=== PATIENT | male | born 1980 | race African-American/Black ===

== ENCOUNTER 2017-05-19 19:04 | Inpatient (IN) | payer OTHER, MEDICAID ==
[~2017-05-19] VITALS: Ht 182.9 cm; Wt 160.1 kg
[2017-05-19 19:30] VITALS: BP 180/99; PULSE 82; RESP 22; TEMP 97.8; O2SAT 91
[2017-05-19] MEDS ORDERED: LABETALOL HCL 100 MG/20 ML VIAL IV PUSH PRN (19:30)
[2017-05-19] MEDS: hydrALAZINE HCL 20 MG/ML VIAL IV PUSH PRN (19:30)
[2017-05-19] MEDS ORDERED: SENNOSIDES 8.6 MG TAB PO PRN (19:30)
[2017-05-19] MEDS ORDERED: BISACODYL 10 MG SUPP RECTAL PRN (19:30)
[2017-05-19] MEDS ORDERED: HYDROmorphone HCL 2 MG TAB PO PRN (19:30)
[2017-05-19] MEDS ORDERED: MAGNESIUM HYDROXIDE SUSP 30 ML CUP PO PRN (19:30)
[2017-05-19] MEDS ORDERED: LACTULOSE SYRUP 20 GM/30 ML CUP PO PRN (19:30)
[2017-05-19] MEDS ORDERED: ONDANSETRON HCL 4 MG/2 ML VIAL ONE (19:32)
[2017-05-19] MEDS ORDERED: METOPROLOL TARTRATE 5 MG/5 ML VIAL ONE (19:38)
--- NOTE | 2017-05-19 19:40 | HHI.HP ---
History of Present Illness Chief Complaint: acute type B aortic dissection History of Present Illness 36 yo male with known HTN who had intense chest pain today during intercourse. Never happened before and although still present, has eased off significantly. 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 Transferred to [facility]. On presentation, in no distress and conversant. Neurologically intact. Past/Family/Social History Past Medical History HTN Past Surgical History inguinal hernia Social History 6 children lives in [place] Family History no aortic pathology Coded Allergies: No Known Allergies (Unverified , 05/19/17) Review of Systems Cardiovascular: COMPLAINS OF: Chest pain Gastrointestinal: DENIES: Abdominal pain Musculoskeletal: COMPLAINS OF: Back pain Physical Exam Neuro: alert, oriented, no distress, M[place]A HEENT: NC/AT; anicteric sclera Neck: no JVD Heart: reg rate Lungs: nonlabored breathing Abdomen: nontender to palpation Vascular: palpable femoral, pedal pulses Extremities: [place] with good strength pending CTA reviewed ([facility]) - type B aortic dissection with no evidence of rupture. Celiac occluded proximally but arterial phased reconstitution distally at hepatic artery. SMA true lumen narrowed from FL. B renal arteries fill. B iliac arteries fill Caprini VTE Risk Assessment Caprini VTE Risk Assessment: Mod/High Risk (score >= 2) Caprini Risk Assessment Model Point Value = 1 Point Value = 2 Point Value = 3 Point Value = 5 Age 41-60 Minor surgery BMI > 25 kg/m2 Swollen legs Varicose veins or History of unexplained or recurrent spontaneous Oral contraceptives or hormone replacement Sepsis (< 1 month) Serious lung disease, including pneumonia (< 1 month) Abnormal pulmonary function Acute myocardial infarction Congestive heart failure (< 1 month) History of inflammatory bowel disease Medical patient at bed rest Age 61-74 Arthroscopic surgery Major open surgery (> 45 min) Laparoscopic surgery (> 45 min) Malignancy Confined to bed (> 72 hours) Immobilizing plaster cast Central venous access Age >= 75 History of VTE Family history of VTE Factor V Leiden Prothrombin [id number] Lupus anticoagulant Anticardiolipin antibodies Elevated serum homocysteine Heparin-induced thrombocytopenia Other congenital or acquired thrombophilia Stroke (< 1 month) Elective arthroplasty Hip, pelvis, or leg fracture Acute spinal cord injury (< 1 month) Prophylaxis Regimen Total Risk Factor Score Risk Level Prophylaxis Regimen 0-1 Low Early ambulation 2 Moderate Order ONE of the following: *Sequential Compression Device (SCD) *Heparin 5000 units SQ BID 3-4 Higher Order ONE of the following medications: *Heparin 5000 units SQ TID *Enoxaparin/Lovenox 40 mg SQ daily (WT < 150 kg, CrCl > 30 mL/min) *Enoxaparin/Lovenox 30 mg SQ daily (WT < 150 kg, CrCl > 10-29 mL/min) *Enoxaparin/Lovenox 30 mg SQ BID (WT < 150 kg, CrCl > 30 mL/min) AND/OR *Sequential Compression Device (SCD) 5 or more Highest Order ONE of the following medications: *Heparin 5000 units SQ TID (Preferred with Epidurals) *Enoxaparin/Lovenox 40 mg SQ daily (WT < 150 kg, CrCl > 30 mL/min) *Enoxaparin/Lovenox 30 mg SQ daily (WT < 150 kg, CrCl > 10-29 mL/min) *Enoxaparin/Lovenox 30 mg SQ BID (WT < 150 kg, CrCl > 30 mL/min) AND *Sequential Compression Device (SCD) Assessment and Plan Plan acute TBAD without compromising features at present. Most worrisome radiographic features include overall size (42mm) and celiac occlusion proximally. However, chest pain resolving, neuro intact, no abdominal pain and iStat LA 1.3 1. Aggressive BP control - goal <110 2. Neurovascular checks 3. Serial abdominal exams and LFTs and LA 4. Repeat CTA Tuesday/Tuesday Seen and discussed with Dr. Zepeda. Lobo Guzman MD FACS [employer]I [employer] magistrate [facility] - Heart and Vascular Surgery at [facility] [phone] Lobo Guzman MD May 19, 2017 19:40
[2017-05-19] MEDS ORDERED: DILTIAZEM HCL 25 MG/5 ML VIAL ONE (19:45)
[2017-05-19 20:00] VITALS: BP 94/49; PULSE 74; PULSE 82; RESP 24; O2SAT 90
[2017-05-19] MEDS: HEPARIN SODIUM - SQ 10,000 UNITS/ML VIAL SQ SCH (20:00)
[2017-05-19] MEDS ORDERED: LACTATED RINGER'S 1000 ML INJ 1,000 ML IV SCH (20:00)
[2017-05-19 20:03] LABS: MEAN CELL VOLUME 78.7 FL (80.0-100.0); MEAN CORPUSCULAR HEMOGLOBIN 26.9 PG (27.0-34.0); MEAN CORPUSCULAR HGB CONC 34.1 % (32.0-36.0); MEAN PLATELET VOLUME 7.5 FL (7.0-11.0); PLATELET COUNT 219 TH/MM3 (150-450); RED BLOOD COUNT 4.83 MIL/MM3 (4.50-5.90); RED CELL DISTRIBUTION WIDTH 15.2 % (11.6-17.2); WHITE BLOOD COUNT 11.2 TH/MM3 (4.0-11.0)
[2017-05-19 20:19] VITALS: O2SAT 94
[2017-05-19 20:22] LABS: ALBUMIN 3.8 GM/DL (3.4-5.0); BICARBONATE 29.9 MEQ/L (21.0-32.0); CALCIUM 8.7 MG/DL (8.5-10.1); CREATININE 1.27 MG/DL (0.60-1.30); DIRECT BILIRUBIN ADULT 0.1 MG/DL (0.0-0.2); INDIRECT BILIRUBIN 0.4 MG/DL (0.0-0.8); TOTAL BILIRUBIN ADULT 0.5 MG/DL (0.2-1.0); TOTAL PROTEIN 7.5 GM/DL (6.4-8.2)
[2017-05-19] MEDS ORDERED: MAGNESIUM OXIDE 400 MG TAB PO PRN (20:30)
[2017-05-19] MEDS ORDERED: POTASSIUM CHLORIDE 25 MEQ EFFERVESCENT TAB PO PRN (20:30)
[2017-05-19] MEDS ORDERED: POTASSIUM PHOSPHATE INJ 30 MMOL in SODIUM CHLOR 0.9% 250 ML INJ 250 ML IV PRN (20:30)
[2017-05-19] MEDS ORDERED: POTASSIUM PHOSPHATE MONOBASIC 500 MG TAB PO/TUBE PRN (20:30)
[2017-05-19] MEDS ORDERED: SODIUM PHOSPHATE INJ 30 MMOL in SODIUM CHLOR 0.9% 250 ML INJ 240 ML IV PRN (20:30)
[2017-05-19] MEDS ORDERED: MISCELLANEOUS NURSING INFORMATION XX SCH (20:30)
[2017-05-19] MEDS ORDERED: POTASSIUM PHOSPHATE MONOBASIC 500 MG TAB PO PRN (20:30)
[2017-05-19] MEDS ORDERED: ESMOLOL DRIP INJ PREMIX 250 ML IV PRN (20:30)
[2017-05-19] MEDS ORDERED: CLEVIDIPINE INJ 50 ML IV PRN ×2 (20:30→21:00)
[2017-05-19] MEDS ORDERED: MAGNESIUM SULFATE INJ 4 GM in SODIUM CHLORIDE 0.9% INJ 92 ML IV PRN (20:30)
[2017-05-19] MEDS ORDERED: MAGNESIUM SULFATE INJ 2 GM in SODIUM CHLORIDE 0.9% INJ 96 ML IV PRN (20:30)
[2017-05-19] MEDS ORDERED: CHLORHEXIDINE GLUCONATE 2 % 1 PACK (2 CLOTHS) TOP PRN (20:30)
[2017-05-19] MEDS ORDERED: POTASSIUM CHLOR 40 MEQ PREMIX 100 ML IV PRN (20:30)
--- NOTE | 2017-05-19 20:30 | PD.CONS ---
[facility] Service Critical Care Medicine Consult Requested By Dr. Guzman Reason for Consult hemodynamic management Primary Care Physician Unknown History of Present Illness Is a 36-year-old male with a history of hypertension who is on vacation from the [place] area who did not take his antihypertensives today because he is on vacation, and was having sexual intercourse when he had sudden onset of severe substernal radiating to the back chest pain earlier today. 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 He was emergently transferred to [facility] for further management. I evaluated the patient on arrival to the ICU by EVAC. Patient denies abdominal pain. Still endorses chest pain although this is improving. Patient denies any other symptoms. CT chest abdomen pelvis was reviewed and reviewed with myself and Dr. Guzman and does demonstrate a type B dissection. 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 Initial laboratory evidence demonstrates a lactate of 1.3, creatinine 1.2, normal LFTs. Review of Systems Constitutional: DENIES: Diaphoretic episodes, Fatigue, Fever, Chills Eyes: DENIES: Blurred vision Respiratory: DENIES: Cough, Wheezing, Hemoptysis, Sputum production, Shortness of breath Cardiovascular: COMPLAINS OF: Chest pain, DENIES: Palpitations, Syncope, Dyspnea on Exertion, PND, Lower Extremity Edema, Orthopnea, Claudication Gastrointestinal: DENIES: Abdominal pain, Black stools, Bloody stools, Constipation, Diarrhea, Nausea, Vomiting Neurologic: DENIES: Headache Past Family Social History Allergies: Coded Allergies: No Known Allergies (Unverified , 05/19/17) Past Medical History HTN Obstructive sleep apnea for which he does not use a CPAP machine. Past Surgical History inguinal hernia Reported Medications Patient states he takes antihypertensives at home, but cannot remember his exact regimen. He does state that includes losartan and metoprolol. Active Ordered Medications See MAR Family History Reviewed with the patient. No family history of vascular disease, coronary disease, aortic disease. Social History Occasional EtOH. Denies tobacco or other drugs. Physical Exam Vital Signs Vital Signs Date Time Temp Pulse Resp B/P (MAP) Pulse Ox O2 Delivery O2 Flow Rate FiO2 05/19/17 20:19 94 Simple Mask 8.00 Physical Exam GENERAL: Young -Malagasy male, lying in bed, in distress due to chest pain HEENT: Normocephalic. Atraumatic. Pupils equal, round, reactive, conjugate. Mucous membranes are moist NECK: Trachea is midline. There is no JVD. CHEST: Nasal cannula oxygen. Equal chest rise. CARDIOVASCULAR: Normal rate in the 80s, regular rhythm. Sinus by telemetry. Hypertensive with blood pressure in the 180s on my evaluation. I remained at bedside actively treating this until his blood pressure is under 110. ABDOMEN: Soft, nontender, nondistended. No guarding. MUSCULOSKELETAL: Pulses 2+. No peripheral edema. Bilateral upper extremity radial pulses are equal. Bilateral lower extremity pulses are palpable. NEUROLOGICAL: RASS 0. GCS 15. Follows commands. No focal deficits. Laboratory Laboratory Tests Test 05/19/17 19:15 White Blood Count 11.2 Red Blood Count 4.83 Hemoglobin 13.0 Hematocrit 38.0 Mean Corpuscular Volume 78.7 Mean Corpuscular Hemoglobin 26.9 Mean Corpuscular Hemoglobin Concent 34.1 Red Cell Distribution Width 15.2 Platelet Count 219 Mean Platelet Volume 7.5 Blood Urea Nitrogen 14 Creatinine 1.27 Random Glucose 109 Total Protein 7.5 Albumin 3.8 Calcium Level 8.7 Alkaline Phosphatase 73 Aspartate Amino Transf (AST/SGOT) 27 Alanine Aminotransferase (ALT/SGPT) 18 Total Bilirubin 0.5 Direct Bilirubin 0.1 Sodium Level 141 Potassium Level 2.9 Chloride Level 100 Carbon Dioxide Level 29.9 Anion Gap 11 Estimat Glomerular Filtration Rate 78 Indirect Bilirubin 0.4 Result Diagram: 05/19/17191405/19/17 191 Imaging Last Impressions Chest X-Ray 05/19/17 0000 Signed Impressions: Service Date/Time: May 20:05 - CONCLUSION: Enlargement of the aortic arch suggesting aneurysm. Mild cardiomegaly. Mild increased interstitial markings consistent with possible central pulmonary vascular congestion. Lobo Ibarra MD Assessment and Plan Assessment and Plan Assessment: 36-year-old male with new acute type B dissection and hypertensive emergency. Patient remains critically on high risk for decompensation. Admit to ICU. Aggressive blood pressure management with goal systolic blood pressure less than 110 and heart rate less than 70. Serial lactate. Close monitoring of urine output. Active problems: Acute kidney injury Acute type B dissection Hypertensive emergency Plan: Admit to ICU Place arterial line Labetalol drip, esmolol drip, Clevidipine drip as needed Goal systolic blood pressure less than 110 Goal heart rate less than 70 As needed labetalol, hydralazine, metoprolol, diltiazem as needed to achieve goal hemodynamics Serial lactates Serial abdominal exam Frequent neurovascular checks Daily CMP, CBC Close monitoring of urine output. May need Ledesma. Clear liquid diet Maintenance IV fluids Vascular consult: Dr. Guzman SCDs Hold pharmacologic DVT prophylaxis given new acute dissection This patient remains critically ill with one or more organ systems which are or may become a threat to life. I have spent in excess of 81 minutes discontinuously in the care and management of this patient. This time is exclusive of procedures, and includes, but is not limited to, evaluation of the patient, review of the medical record, discussions with family, consultants, nursing staff, or respiratory therapy, and documentation in the medical record. Liang Zepeda MD May 19, 2017 20:30
--- NOTE | 2017-05-19 20:32 | RADRPT ---
EXAM DATE/TIME: 05/19/2017 20:05 [facility] COMPARISON: No previous studies available for comparison. INDICATIONS : Dissection. MEDICAL HISTORY : None. SURGICAL HISTORY : None. ENCOUNTER: Initial ACUITY: 1 day PAIN SCORE: Non-responsive. LOCATION: Bilateral chest FINDINGS: There is enlargement of the aortic arch suggesting aneurysm. The heart is prominent in size. Mild inc reased interstitial markings are noted consistent with possible mild central pulmonary vascular conge stion. CONCLUSION: Enlargement of the aortic arch suggesting aneurysm. Mild cardiomegaly. Mild increased interstitial ma rkings consistent with possible central pulmonary vascular congestion. Lobo Ibarra MD on May 19, 2017 at 20:30 Board Certified Radiologist. This report was verified electronically.
[2017-05-19 21:00] VITALS: BP 105/53; PULSE 71; RESP 20; O2SAT 92
[2017-05-19] MEDS: SODIUM CHLOR 0.9% 1000 ML INJ 1,000 ML IV SCH (21:00)
[2017-05-19] MEDS: DOCUSATE SODIUM 50 MG/SENNA 8.6 MG TAB PO SCH (21:00)
[2017-05-19] MEDS: FAMOTIDINE 20 MG/2 ML VIAL IV PUSH SCH (21:00)
[2017-05-19 21:15] LABS: INTERNATIONAL NORMALIZED RATIO 1.1 RATIO; PROTHROMBIN TIME - PATIENT 11.4 SEC (9.8-11.6)
[2017-05-19 22:00] VITALS: BP 93/51; PULSE 82; RESP 22; O2SAT 94
[2017-05-19] MEDS: ATORVASTATIN 40 MG TAB PO SCH (22:11)
[2017-05-19] MEDS: POTASSIUM CHLOR 20 MEQ PREMIX 100 ML IV PRN (22:11)
[2017-05-19] MEDS: FAMOTIDINE 20 MG TAB PO SCH (22:11)
[2017-05-19] MEDS: LABETALOL IV PRN ×2 (22:57)
[2017-05-19] MEDS: NS IV PRN ×2 (22:57)
[2017-05-19] MEDS: ESMOLOL DRIP INJ PREMIX 250 ML IV PRN (22:58)
[2017-05-19 23:00] VITALS: BP_SYST 78; BP_SYST 89; BP_DIAS 43; BP_DIAS 44; PULSE 81; RESP 20; TEMP 97.9; O2SAT 94
[2017-05-20] VITALS (20 sets, daily range): BP systolic 78–129; BP diastolic 48–75; PULSE 79–96; RESP 16–28; TEMP 97.8–98.4; O2SAT 40–99
[2017-05-20] MEDS ORDERED: LACTATED RINGER'S 1000 ML INJ 1,000 ML IV ONE ×2 (00:15→02:45)
[2017-05-20] MEDS: POTASSIUM CHLOR 20 MEQ PREMIX 100 ML IV PRN ×3 (00:28→04:35)
[2017-05-20] MEDS ORDERED: DILTIAZEM HCL 25 MG/5 ML VIAL ONE (01:06)
[2017-05-20] MEDS: ESMOLOL DRIP INJ PREMIX 250 ML IV PRN ×5 (01:08→18:19)
--- NOTE | 2017-05-20 01:16 | PD.PROCEDR ---
Procedure Note Procedure I provided this service on 05/19/2017 Procedure: Arterial Line Placement Right radial arterial line placement Diagnosis: Acute type B dissection Indications: Need for beat to beat hemogenic monitoring Consent: Verbal consent was obtained from the patient. Due to the emergent nature of the procedure, written consent was not obtained Description of the Procedure: The right wrist was prepped and draped sterilely. 1% lidocaine was used for local anesthesia. The pulse was located and a needle was advanced into the artery. A 20 gauge, 12 cm catheter was advanced into the artery using a modified Seldinger technique. The catheter was sutured to the skin and a sterile dressing was applied. The catheter was connected to a pressure transducer and an arterial waveform was noted. There were no immediate complications noted. There was minimal EBL. I personally performed the procedure. Liang Zepeda MD May 20, 2017 01:16
[2017-05-20] MEDS: CHLORHEXIDINE GLUCONATE 2 % 1 PACK (2 CLOTHS) TOP SCH (04:00)
[2017-05-20] MEDS: HEPARIN SODIUM - SQ 10,000 UNITS/ML VIAL SQ SCH ×3 (04:53→20:38)
[2017-05-20] MEDS: LABETALOL IV PRN ×8 (05:24→19:30)
[2017-05-20] MEDS: NS IV PRN ×8 (05:24→19:30)
[2017-05-20 05:36] LABS: HEMATOCRIT 32.6 % (39.0-51.0); HEMOGLOBIN 10.8 GM/DL (13.0-17.0); MEAN CELL VOLUME 79.9 FL (80.0-100.0); MEAN CORPUSCULAR HEMOGLOBIN 26.5 PG (27.0-34.0); MEAN CORPUSCULAR HGB CONC 33.1 % (32.0-36.0); MEAN PLATELET VOLUME 7.1 FL (7.0-11.0); PLATELET COUNT 180 TH/MM3 (150-450); RED BLOOD COUNT 4.08 MIL/MM3 (4.50-5.90); RED CELL DISTRIBUTION WIDTH 15.2 % (11.6-17.2); WHITE BLOOD COUNT 11.7 TH/MM3 (4.0-11.0)
[2017-05-20 06:42] LABS: BICARBONATE 28.3 MEQ/L (21.0-32.0); CALCIUM 7.7 MG/DL (8.5-10.1); CREATININE 2.16 MG/DL (0.60-1.30); DIRECT BILIRUBIN ADULT 0.1 MG/DL (0.0-0.2); INDIRECT BILIRUBIN 0.5 MG/DL (0.0-0.8); TOTAL BILIRUBIN ADULT 0.6 MG/DL (0.2-1.0); TOTAL PROTEIN 6.2 GM/DL (6.4-8.2)
--- NOTE | 2017-05-20 07:23 | PD.VS.PN ---
Subjective Subjective/Hospital Course Pt resting this morning on CPAP (has been prescribed this at night as outpatient ). No more chest pain and no abdominal pain. did require IVF boluses overnight for decreased UOP Objective Vitals/I&O Date Time Temp Pulse Resp B/P (MAP) Pulse Ox O2 Delivery O2 Flow Rate FiO2 05/20/17 06:00 80 05/20/17 06:00 80 20 109/54 (72) 92 05/20/17 05:00 80 20 113/54 (73) 93 05/20/17 04:53 83 120/56 05/20/17 04:00 79 20 115/58 (77) 95 05/20/17 04:00 79 05/20/17 03:26 95 40 05/20/17 03:00 97.8 79 23 120/55 (76) 95 100/49 (66) 05/20/17 02:00 79 23 119/75 (90) 95 05/20/17 01:08 90 108/54 05/20/17 01:00 96 22 113/54 (73) 96 05/20/17 00:00 84 20 109/48 (68) 92 05/20/17 00:00 84 05/19/17 23:00 97.9 81 20 89/43 (58) 94 78/44 (55) 05/19/17 22:58 81 100/45 05/19/17 22:00 82 22 93/51 (65) 94 05/19/17 21:00 71 20 105/53 (70) 92 05/19/17 20:19 94 Simple Mask 8.00 05/19/17 20:00 82 05/19/17 20:00 74 24 94/49 (64) 90 05/19/17 19:30 97.8 82 22 180/99 (126) 91 05/20/17 05/20/17 05/20/17 07:00 15:00 23:00 Intake Total 4844 ml Output Total 440 ml Balance 4404 ml Physical Exam Neuro intact. No abdominal tenderness to deep palpation palpable pulses Laboratory Laboratory Tests Test 05/19/17 19:15 05/20/17 05:20 White Blood Count 11.2 11.7 Red Blood Count 4.83 4.08 Hemoglobin 13.0 10.8 Hematocrit 38.0 32.6 Mean Corpuscular Volume 78.7 79.9 Mean Corpuscular Hemoglobin 26.9 26.5 Mean Corpuscular Hemoglobin Concent 34.1 33.1 Red Cell Distribution Width 15.2 15.2 Platelet Count 219 180 Mean Platelet Volume 7.5 7.1 Prothrombin Time 11.4 Prothromb Time International Ratio 1.1 Activated Partial Thromboplast Time 24.3 Blood Urea Nitrogen 14 21 Creatinine 1.27 2.16 Random Glucose 109 114 Total Protein 7.5 6.2 Albumin 3.8 3.0 Calcium Level 8.7 7.7 Alkaline Phosphatase 73 57 Aspartate Amino Transf (AST/SGOT) 27 197 Alanine Aminotransferase (ALT/SGPT) 18 198 Total Bilirubin 0.5 0.6 Direct Bilirubin 0.1 0.1 Sodium Level 141 141 Potassium Level 2.9 3.5 Chloride Level 100 102 Carbon Dioxide Level 29.9 28.3 Anion Gap 11 11 Estimat Glomerular Filtration Rate 78 42 Indirect Bilirubin 0.4 0.5 Lactic Acid Level 1.6 Imaging Last 48 hours Impressions Chest X-Ray 05/19/17 0000 Signed Impressions: Service Date/Time: May 20:05 - CONCLUSION: Enlargement of the aortic arch suggesting aneurysm. Mild cardiomegaly. Mild increased interstitial markings consistent with possible central pulmonary vascular congestion. Lobo Ibarra MD Assessment and Plan Plan acute TBAD without compromising features at present. Most worrisome radiographic features include overall size (42mm) and celiac occlusion proximally. CP resolved. Looks comfortable. Creatinine increase likely prerenal and maybe contrast. 1. Aggressive BP control - goal <110 2. Neurovascular checks 3. Serial abdominal exams and LFTs and LA 4. Repeat CTA Tuesday; will need HCO3 Tuesday 5. Monitor creatinine 6. Reg diet Lobo Guzman MD FACS RPVI supervisor electric motor testing [facility] - Heart and Vascular Surgery at [facility] [phone] Lobo Guzman MD May 20, 2017 07:23
[2017-05-20] MEDS: FAMOTIDINE 20 MG TAB PO SCH ×2 (08:51→20:38)
[2017-05-20] MEDS: DOCUSATE SODIUM 50 MG/SENNA 8.6 MG TAB PO SCH ×2 (09:00→20:40)
[2017-05-20] MEDS: FAMOTIDINE 20 MG/2 ML VIAL IV PUSH SCH ×2 (09:11→20:39)
[2017-05-20] MEDS: SODIUM CHLOR 0.9% 1000 ML INJ 1,000 ML IV SCH (09:11)
--- NOTE | 2017-05-20 09:53 | HHI.CCPN ---
Subjective Remarks/Hospital Course 05/19: Is a 36-year-old male with a history of hypertension who is on vacation from the [place] area who did not take his antihypertensives today because he is on vacation, and was having sexual intercourse when he had sudden onset of severe substernal radiating to the back chest pain earlier today. 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 He was emergently transferred to [facility] for further management. I evaluated the patient on arrival to the ICU by EVAC. Patient denies abdominal pain. Still endorses chest pain although this is improving. Patient denies any other symptoms. CT chest abdomen pelvis was reviewed and reviewed with myself and Dr. Guzman and does demonstrate a type B dissection. 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 Initial laboratory evidence demonstrates a lactate of 1.3, creatinine 1.2, normal LFTs. 05/20: On home C Pap. Urine output 30 cc/h currently. Remains on esmolol and labetalol drips. Remains drowsy though arousable. +4.4 L Objective Vital Signs Date Time Temp Pulse Resp B/P (MAP) Pulse Ox O2 Delivery O2 Flow Rate FiO2 05/20/17 09:09 79 125/55 05/20/17 07:34 96 40 05/20/17 06:00 20 05/20/17 03:00 97.8 05/19/17 20:19 Simple Mask 8.00 Intake and Output 05/20/17 05/20/17 05/21/17 08:00 16:00 00:00 Intake Total 4844 ml Output Total 440 ml Balance 4404 ml Result Diagram: 05/20/17 0520 05/20/17 0520 Imaging Last Impressions Chest X-Ray 05/19/17 0000 Signed Impressions: Service Date/Time: May 20:05 - CONCLUSION: Enlargement of the aortic arch suggesting aneurysm. Mild cardiomegaly. Mild increased interstitial markings consistent with possible central pulmonary vascular congestion. Lobo Ibarra MD Objective Remarks GENERAL: Young -Azerbaijani male, lying in bed on home C Pap HEENT: Normocephalic. Atraumatic. Pupils equal, round, reactive, conjugate. Mucous membranes are moist NECK: Trachea is midline. There is no JVD. CHEST: On home C Pap with full facemask, air entry decreased bilaterally at bases, no wheezing or crackles. CARDIOVASCULAR: S1-S2 regular, no gallop or murmur. On labetalol and esmolol drips ABDOMEN: Soft, nontender, nondistended. No guarding. MUSCULOSKELETAL: Pulses 2+. No peripheral edema. Bilateral upper extremity radial pulses are equal. Bilateral lower extremity pulses are palpable. NEUROLOGICAL: Drowsy, arousable, moves all 4 extremities. No focal deficits. A/P Assessment and Plan Assessment: 36-year-old male with new acute type B dissection and hypertensive emergency. Patient remains critically on high risk for decompensation. Admitted to ICU. Aggressive blood pressure management with goal systolic blood pressure less than 120 and heart rate less than 70. Serial lactate. Close monitoring of urine output. Active problems: Acute kidney injury Acute type B dissection Hypertensive emergency Plan: Admitted to ICU Arterial line placed Labetalol drip, esmolol drip, Clevidipine drip as needed Goal systolic blood pressure less than 110 Goal heart rate less than 70 As needed labetalol, hydralazine, metoprolol, diltiazem as needed to achieve goal hemodynamics. Check 2-D echo, BNP. Serial lactates Serial abdominal exam Frequent neurovascular checks Daily CMP, CBC Close monitoring of urine output. May need Ledesma. Nephrology consult requested in v/o rising creatinine with significant positive fluid balance with renal artery involvement by aortic dissection as well as contrast exposure. + 4.4 L. Currently getting about 1 80 cc per hour fluids. Lasix 20 mg IV 1 dose to maintain nonoliguric state. Clear liquid diet Maintenance IV fluids Vascular consult: Dr. Guzman SCDs Hold pharmacologic DVT prophylaxis given new acute dissection This patient remains critically ill with one or more organ systems which are or may become a threat to life. I have spent in excess of 40 minutes discontinuously in the care and management of this patient. This time is exclusive of procedures, and includes, but is not limited to, evaluation of the patient, review of the medical record, discussions with family, consultants, nursing staff, or respiratory therapy, and documentation in the medical record. Paul Arango MD May 20, 2017 09:53
--- NOTE | 2017-05-20 09:57 | RADRPT ---
EXAM DATE/TIME: 05/19/2017 00:00 [facility] COMPARISON: No previous studies available for comparison. INDICATIONS : Bilateral Lower Extremity Edema, Vascular TECHNIQUE: Four-cuff ankle and brachial pressures were obtained. Pulse cuff waveform tracings of the ankles were recorded, and ankle-brachial indices were calculated. PRESSURES (mmHg): Brachial (arm): Right IV SITES Left 125 Ankle: Right 68 Left 70 LIS: Right 0.54 Left 0.56 TBI: Right 0.00 Left 0.46 PULSED CUFF WAVEFORMS: Diminished pulse wave tracings right ankle an LIS of 0. 5. LIS on the left 0.56. CT angiography wou ld be of benefit. CONCLUSION: Decreased ABIs bilaterally, 0.54 on the right and 0.56 and left. Buddy Harrison MD FACR on May 20, 2017 at 9:55 Board Certified Radiologist. This report was verified electronically.
[2017-05-20] MEDS ORDERED: FUROSEMIDE 20 MG/2 ML VIAL IV PUSH ONE (10:00)
--- NOTE | 2017-05-20 15:42 | ECHRPT ---
Indication: ASSESS LV FUNCTION CONCLUSIONS The left ventricular systolic function is hyperdynamic with an estimated ejection fraction in the ra nge of 65- 70%. Normal left ventricular size. Wall thickness is normal. No regional wall motion abnormalities are present. There is trace tricuspid valve regurgitation. The estimated pulmonary arterial pressure is 28 mmHg. BP: 141 / 61 HR: 80 Rhythm: Sinus MEASUREMENTS (Male / Female) Normal Values Technical Quality:Good 2D ECHO LV Diastolic Diameter PLAX 4.7 cm 4.2 - 5.9 / 3.9 - 5.3 cm LV Systolic Diameter PLAX 3.2 cm IVS Diastolic Thickness 1.5 cm 0.6 - 1.0 / 0.6 - 0.9 cm LVPW Diastolic Thickness 1.5 cm 0.6 - 1.0 / 0.6 - 0.9 cm LV Relative Wall Thickness 0.6 LVOT Diameter 1.8 cm LA Systolic Diameter LX 2.5 cm 3.0 - 4.0 / 2.7 - 3.8 cm M-MODE Aortic Root Diameter MM 2.1 cm LA Systolic Diameter MM 3.1 cm LA Ao Ratio MM 1.5 AV Cusp Separation MM 2.0 cm DOPPLER MV Area PHT 5.5 cm Mitral E Point Velocity 87.4 cm/s Mitral A Point Velocity 53.3 cm/s Mitral E to A Ratio 1.6 TR Peak Velocity 212.0 cm/s TR Peak Gradient 18.0 mmHg Right Atrial Pressure 10.0 mmHg Pulmonary Artery Systolic Pressu 28.0 mmHg Right Ventricular Systolic Press 28.0 mmHg PV Peak Velocity 80.1 cm/s PV Peak Gradient 2.6 mmHg FINDINGS LEFT VENTRICLE The left ventricular systolic function is hyperdynamic with an estimated ejection fraction in the ra nge of 65- 70%. Normal left ventricular size. Wall thickness is normal. No regional wall motion abnormalities are present. TRICUSPID VALVE Structurally normal tricuspid valve. There is trace tricuspid valve regurgitation. The estimated pulmonary arterial pressure is 28 mmHg. Froy Cain MD, FACC, [facility] (Electronically Signed) Final Date:20 May 2017 15:41
--- NOTE | 2017-05-20 16:16 | RADRPT ---
EXAM DATE/TIME: 05/20/2017 15:11 [facility] COMPARISON: CHEST SINGLE AP, May 19, 2017, 20:05. INDICATIONS : Dissection. MEDICAL HISTORY : None. SURGICAL HISTORY : None. ENCOUNTER: Initial ACUITY: 2 days PAIN SCORE: Non-responsive. LOCATION: Bilateral chest FINDINGS: The aortic knob is again noted to be moderately prominent. Mass or aneurysm should be considered. CT chest recommended as clinically appropriate. Stable asymmetric elevation of the right diaphragm of un determined chronicity. Mild interstitial prominence and vascular congestion, left worse than right. CONCLUSION: Stable abnormal chest appearance. Wiliam Ruiz MD on May 20, 2017 at 16:13 Board Certified Radiologist. This report was verified electronically.
[2017-05-20] MEDS: RESP: ALBUTEROL 2.5 MG/IPRATROPIUM 0.5 MG NEB (PRN) INH (17:06)
--- NOTE | 2017-05-20 19:22 | PD.CONS ---
HPI Service Nephrology Consult Requested By Dr. Arango Reason for Consult Acute renal failure Primary Care Physician Unknown History of Present Illness Patient is a 36-year-old Afro-[place] male who has hypertension he states it was diagnosed 4 years ago he was supposed to take his antihypertensive medication but he was vacationing and did not take his medication, while having intercourse he felt sharp pain in the chest radiating to worsen his back and presented to outside hospital. 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 It was 1.27 and now 2.16 Review of Systems Constitutional: COMPLAINS OF: Fatigue Cardiovascular: COMPLAINS OF: Chest pain Past Family Social History Allergies: Coded Allergies: No Known Allergies (Unverified , 05/19/17) Past Medical History Hypertension Past Surgical History Denies Active Ordered Medications Current Medications Medications (Trade) Dose Ordered Sig/Melissa Route Start Time Stop Time Status Last Admin Labetalol HCl 500 mg/Sodium Chloride 250 ml @ 60 mls/hr TITRATE PRN IV 05/19/17 19:15 05/20/17 09:47 (Pepcid) 20 mg BID PO 05/19/17 21:00 05/19/17 22:11 (Lipitor) 40 mg HS PO 05/19/17 21:00 05/19/17 22:11 (Roxicodone) 5 mg Q4H PRN PO 05/19/17 19:30 (Dilaudid) 2 mg Q4H PRN PO 05/19/17 19:30 (Morphine Inj) 2 mg Q1H PRN IV 05/19/17 20:00 (Heparin Inj) 5,000 units Q8H SQ 05/19/17 20:00 05/20/17 13:21 (Kina-Colace) 1 tab BID PO 05/19/17 21:00 05/19/17 21:00 (Milk Of Magnesia Liq) 30 ml Q12H PRN PO 05/19/17 19:30 (Senokot) 17.2 mg Q12H PRN PO 05/19/17 19:30 (Dulcolax Supp) 10 mg DAILY PRN RECTAL 05/19/17 19:30 (Lactulose Liq) 30 ml DAILY PRN PO 05/19/17 19:30 (Trandate Inj) 20 mg Q5M PRN IV PUSH 05/19/17 20:30 (Apresoline Inj) 10 mg Q30M PRN IV PUSH 05/19/17 20:30 05/19/17 19:30 (Lopressor Inj) 5 mg Q1H PRN IV PUSH 05/19/17 20:30 Potassium Chloride 100 ml @ 50 mls/hr Q2H PRN IV 05/19/17 20:30 Potassium Chloride 100 ml @ 50 mls/hr Q2H PRN IV 05/19/17 20:30 05/20/17 04:35 (K-Lyte Cl Eff) 50 meq UNSCH PRN PO 05/19/17 20:30 Potassium Chloride 100 ml @ 25 mls/hr UNSCH PRN IV 05/19/17 20:30 Potassium Chloride 100 ml @ 50 mls/hr Q2H PRN IV 05/19/17 20:30 Magnesium Sulfate 4 gm/Sodium Chloride 100 ml @ 50 mls/hr UNSCH PRN IV 05/19/17 20:30 (Mag-Ox) 800 mg UNSCH PRN PO 05/19/17 20:30 Magnesium Sulfate 2 gm/Sodium Chloride 100 ml @ 50 mls/hr UNSCH PRN IV 05/19/17 20:30 (K-Phos) 2,000 mg Q4H PRN PO 05/19/17 20:30 Sodium Phosphate 30 mmol/Sodium Chloride 250 ml @ 42 mls/hr UNSCH PRN IV 05/19/17 20:30 (K-Phos) 2,000 mg UNSCH PRN PO/TUBE 05/19/17 20:30 Potassium Phosphate 30 mmol/ Sodium Chloride 260 ml @ 42 mls/hr UNSCH PRN IV 05/19/17 20:30 Sodium Chloride 1,000 ml @ 50 mls/hr Q20H IV 05/19/17 21:00 05/20/17 09:11 (Pepcid Inj) 20 mg Q12HR IV PUSH 05/19/17 21:00 05/20/17 09:11 (Zofran Inj) 4 mg Q6H PRN IV PUSH 05/19/17 20:30 (Duoneb Neb) 1 ampule Q2HR NEB PRN INH 05/19/17 20:30 05/20/17 17:06 Miscellaneous Information 1 Q361D XX 05/19/17 20:30 05/19/17 20:30 (Chlorhexidine 2% Cloth) 3 pack Taper DAILY@04 TOP 05/20/17 04:00 05/16/18 03:59 05/20/17 04:00 (Chlorhexidine 2% Cloth) 3 pack UNSCH PRN TOP 05/19/17 20:30 Clevidipine 50 ml @ 2 mls/hr TITRATE PRN IV 05/19/17 21:00 Esmolol HCl/ Sodium Chloride 250 ml @ 39.9 mls/hr TITRATE PRN IV 05/19/17 21:00 05/20/17 18:19 Family History Noncontributory Social History Denies use of drugs or smoking / alcohol use occasional Physical Exam Vital Signs Vital Signs Date Time Temp Pulse Resp B/P (MAP) Pulse Ox O2 Delivery O2 Flow Rate FiO2 05/20/17 18:19 83 106/65 05/20/17 17:11 97 40 05/20/17 15:00 81 05/20/17 15:00 97.9 81 20 122/62 (82) 96 108/51 (70) 05/20/17 11:00 97.8 80 20 128/61 (83) 93 94/54 (67) 05/20/17 11:00 81 05/20/17 10:20 40 05/20/17 10:20 80 141/61 05/20/17 09:09 79 125/55 05/20/17 07:34 96 40 05/20/17 07:00 81 05/20/17 07:00 97.8 81 16 129/50 (76) 95 78/48 (58) 05/20/17 06:00 80 05/20/17 06:00 80 20 109/54 (72) 92 05/20/17 05:00 80 20 113/54 (73) 93 05/20/17 04:53 83 120/56 05/20/17 04:00 79 20 115/58 (77) 95 05/20/17 04:00 79 05/20/17 03:26 95 40 05/20/17 03:00 97.8 79 23 120/55 (76) 95 100/49 (66) 05/20/17 02:00 79 23 119/75 (90) 95 05/20/17 01:08 90 108/54 05/20/17 01:00 96 22 113/54 (73) 96 05/20/17 00:00 84 20 109/48 (68) 92 05/20/17 00:00 84 05/19/17 23:00 97.9 81 20 89/43 (58) 94 78/44 (55) 05/19/17 22:58 81 100/45 05/19/17 22:00 82 22 93/51 (65) 94 05/19/17 21:00 71 20 105/53 (70) 92 05/19/17 20:19 94 Simple Mask 8.00 05/19/17 20:00 82 05/19/17 20:00 74 24 94/49 (64) 90 05/19/17 19:30 97.8 82 22 180/99 (126) 91 Physical Exam GENERAL: Well-nourished, well-developed patient. SKIN: Warm and dry. HEAD: Normocephalic. EYES: No scleral icterus. No injection or drainage. NECK: Supple, trachea midline. No JVD or lymphadenopathy. CARDIOVASCULAR: Regular rate and rhythm without murmurs, gallops, or rubs. RESPIRATORY: Breath sounds equal bilaterally. No accessory muscle use. GASTROINTESTINAL: Abdomen soft, non-tender, nondistended. EXTREMITIES: No cyanosis, or edema. NEUROLOGICAL: Awake, alert, and oriented x 3. Non-focal. Laboratory Laboratory Tests Test 05/19/17 19:15 05/20/17 05:20 05/20/17 09:30 White Blood Count 11.2 11.7 Red Blood Count 4.83 4.08 Hemoglobin 13.0 10.8 Hematocrit 38.0 32.6 Mean Corpuscular Volume 78.7 79.9 Mean Corpuscular Hemoglobin 26.9 26.5 Mean Corpuscular Hemoglobin Concent 34.1 33.1 Red Cell Distribution Width 15.2 15.2 Platelet Count 219 180 Mean Platelet Volume 7.5 7.1 Prothrombin Time 11.4 Prothromb Time International Ratio 1.1 Activated Partial Thromboplast Time 24.3 Blood Urea Nitrogen 14 21 Creatinine 1.27 2.16 Random Glucose 109 114 Total Protein 7.5 6.2 Albumin 3.8 3.0 Calcium Level 8.7 7.7 Alkaline Phosphatase 73 57 Aspartate Amino Transf (AST/SGOT) 27 197 Alanine Aminotransferase (ALT/SGPT) 18 198 Total Bilirubin 0.5 0.6 Direct Bilirubin 0.1 0.1 Sodium Level 141 141 Potassium Level 2.9 3.5 Chloride Level 100 102 Carbon Dioxide Level 29.9 28.3 Anion Gap 11 11 Estimat Glomerular Filtration Rate 78 42 Indirect Bilirubin 0.4 0.5 Lactic Acid Level 1.6 B-Type Natriuretic Peptide 33 Urine Random Creatinine 304.0 Urine Random Sodium 39 Result Diagram: 05/20/17 0520 05/20/17 0520 Imaging Last Impressions Chest X-Ray 05/20/17 1500 Signed Impressions: Service Date/Time: Saturday, May 20, 2017 15:11 - CONCLUSION: Stable abnormal chest appearance. 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
[2017-05-20] MEDS: ATORVASTATIN 40 MG TAB PO SCH (20:38)
[2017-05-20] MEDS: MORPHINE SULFATE 2 MG/ML INJ IV PRN (23:52)
[2017-05-21] VITALS (15 sets, daily range): BP systolic 89–137; BP diastolic 55–90; PULSE 87–97; RESP 16–20; TEMP 98.3–99.7; O2SAT 94–98
[2017-05-21] MEDS: LABETALOL IV PRN ×6 (00:40→21:05)
[2017-05-21] MEDS: NS IV PRN ×6 (00:40→21:05)
[2017-05-21] MEDS: CHLORHEXIDINE GLUCONATE 2 % 1 PACK (2 CLOTHS) TOP SCH (04:00)
[2017-05-21] MEDS: HEPARIN SODIUM - SQ 10,000 UNITS/ML VIAL SQ SCH ×3 (04:21→20:07)
[2017-05-21 04:29] LABS: AUTOMATED NEUTROPHIL # 8.8 TH/MM3 (1.8-7.7); BASOPHIL % 0.3 % (0.0-2.0); EOSINOPHIL % 0.3 % (0.0-4.0); HEMATOCRIT 30.6 % (39.0-51.0); HEMOGLOBIN 10.2 GM/DL (13.0-17.0); LYMPH % 16.8 % (9.0-44.0); MEAN CELL VOLUME 79.4 FL (80.0-100.0); MEAN CORPUSCULAR HEMOGLOBIN 26.3 PG (27.0-34.0); MEAN CORPUSCULAR HGB CONC 33.2 % (32.0-36.0); MEAN PLATELET VOLUME 7.6 FL (7.0-11.0); MONO % 8.4 % (0.0-8.0); NEUT % 74.2 % (16.0-70.0); PLATELET COUNT 167 TH/MM3 (150-450); RED BLOOD COUNT 3.86 MIL/MM3 (4.50-5.90); RED CELL DISTRIBUTION WIDTH 15.2 % (11.6-17.2); WHITE BLOOD COUNT 11.9 TH/MM3 (4.0-11.0)
[2017-05-21 05:13] LABS: ALBUMIN 2.9 GM/DL (3.4-5.0); BICARBONATE 29.1 MEQ/L (21.0-32.0); CALCIUM 7.7 MG/DL (8.5-10.1); CREATININE 1.8 MG/DL (0.60-1.30); DIRECT BILIRUBIN ADULT 0.1 MG/DL (0.0-0.2); INDIRECT BILIRUBIN 0.3 MG/DL (0.0-0.8); MAGNESIUM 1.3 MG/DL (1.5-2.5); PHOSPHORUS 3.8 MG/DL (2.5-4.9); TOTAL BILIRUBIN ADULT 0.4 MG/DL (0.2-1.0); TOTAL PROTEIN 6.2 GM/DL (6.4-8.2)
[2017-05-21] MEDS: POTASSIUM CHLOR 40 MEQ PREMIX 100 ML IV PRN (05:53)
[2017-05-21] MEDS: DOCUSATE SODIUM 50 MG/SENNA 8.6 MG TAB PO SCH ×2 (08:45→20:07)
[2017-05-21] MEDS: FAMOTIDINE 20 MG/2 ML VIAL IV PUSH SCH ×2 (08:45→20:07)
[2017-05-21] MEDS: FAMOTIDINE 20 MG TAB PO SCH ×2 (08:45→20:07)
[2017-05-21] MEDS: hydrALAZINE HCL 20 MG/ML VIAL IV PUSH PRN ×3 (11:23→19:21)
--- NOTE | 2017-05-21 12:00 | HHI.CCPN ---
Subjective Remarks/Hospital Course 05/19: Is a 36-year-old male with a history of hypertension who is on vacation from the [place] area who did not take his antihypertensives today because he is on vacation, and was having sexual intercourse when he had sudden onset of severe substernal radiating to the back chest pain earlier today. 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 He was emergently transferred to [facility] for further management. I evaluated the patient on arrival to the ICU by EVAC. Patient denies abdominal pain. Still endorses chest pain although this is improving. Patient denies any other symptoms. CT chest abdomen pelvis was reviewed and reviewed with myself and Dr. Guzman and does demonstrate a type B dissection. 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 Initial laboratory evidence demonstrates a lactate of 1.3, creatinine 1.2, normal LFTs. 3: On home C Pap. Urine output 30 cc/h currently. Remains on esmolol and labetalol drips. Remains drowsy though arousable. +4.4 L 05/21: Resting comfortably on nasal cannula. Awake and alert currently. Denies any shortness of breath or chest pain currently. Objective Vital Signs Date Time Temp Pulse Resp B/P (MAP) Pulse Ox O2 Delivery O2 Flow Rate FiO2 05/21/17 08:07 94 Nasal Cannula 4.00 40 05/21/17 08:00 98.3 93 18 103/83 (90) 118/68 (85) Intake and Output 05/21/17 05/21/17 05/22/17 08:00 16:00 00:00 Intake Total 4342 ml Output Total 845 ml Balance 3497 ml Result Diagram: 05/21/17 0400 05/21/17 0400 Imaging Last Impressions Chest X-Ray 05/19/17 0000 Signed Impressions: Service Date/Time: May 20:05 - CONCLUSION: Enlargement of the aortic arch suggesting aneurysm. Mild cardiomegaly. Mild increased interstitial markings consistent with possible central pulmonary vascular congestion. Lobo Ibarra MD Objective Remarks GENERAL: Young -[place] male, lying in bed on nasal cannula HEENT: Normocephalic. Atraumatic. Pupils equal, round, reactive, conjugate. Mucous membranes are moist NECK: Trachea is midline. There is no JVD. CHEST: Good air entry bilaterally no wheezing or crackles CARDIOVASCULAR: S1-S2 regular, no gallop or murmur. On labetalol and esmolol drips ABDOMEN: Soft, nontender, nondistended. No guarding. MUSCULOSKELETAL: Pulses 2+. No peripheral edema. Bilateral upper extremity radial pulses are equal. Bilateral lower extremity pulses are palpable. NEUROLOGICAL: Awake alert oriented 3, moves all 4 extremities. No focal deficits. A/P Assessment and Plan Assessment: 36-year-old male with new acute type B dissection and hypertensive emergency. Patient remains critically on high risk for decompensation. Admitted to ICU. Aggressive blood pressure management with goal systolic blood pressure less than 120 and heart rate less than 70. Serial lactate. Close monitoring of urine output. Active problems: Acute kidney injury Acute type B dissection Hypertensive emergency Plan: Admitted to ICU Arterial line placed Labetalol drip, esmolol drip, Clevidipine drip as needed Goal systolic blood pressure less than 120 Goal heart rate less than 70 As needed labetalol, hydralazine, metoprolol, diltiazem as needed to achieve goal hemodynamics. Check 2-D echo, BNP. Serial lactates Serial abdominal exam Frequent neurovascular checks Daily CMP, CBC Close monitoring of urine output. May need Ledesma. Nephrology consult requested in v/o rising creatinine with significant positive fluid balance with renal artery involvement by aortic dissection as well as contrast exposure. + 4.4 L on 05/20. Clear liquid diet Maintenance IV fluids Vascular consult: Dr. Guzman SCDs Hold pharmacologic DVT prophylaxis given new acute dissection This patient remains critically ill with one or more organ systems which are or may become a threat to life. I have spent in excess of 30 minutes discontinuously in the care and management of this patient. This time is exclusive of procedures, and includes, but is not limited to, evaluation of the patient, review of the medical record, discussions with family, consultants, nursing staff, or respiratory therapy, and documentation in the medical record. Paul Arango MD May 21, 2017 12:00
--- NOTE | 2017-05-21 14:40 | HHI.NPPN ---
Subjective Interval History patient is comfortable. Non oliguric. Renal function is slightly better. Objective Data Data Vital Signs Date Time Temp Pulse Resp B/P (MAP) Pulse Ox O2 Delivery O2 Flow Rate FiO2 05/21/17 12:00 Bi-Pap 05/21/17 12:00 98.6 94 20 98/90 (93) 96 110/55 (73) 05/21/17 12:00 87 05/21/17 11:42 98 35 05/21/17 08:32 97 Nasal Cannula 5.00 05/21/17 08:07 94 Nasal Cannula 4.00 40 05/21/17 08:00 98.3 93 18 103/83 (90) 94 118/68 (85) 05/21/17 07:00 91 05/21/17 06:36 95 Nasal Cannula 4.00 05/21/17 05:00 134/70 05/21/17 04:11 95 40 05/21/17 03:16 94 05/21/17 03:13 98.8 94 16 97/73 (81) 97 119/65 (83) 05/21/17 03:13 97 Bi-Pap 40 05/20/17 23:21 93 Nasal Cannula 4.00 05/20/17 23:17 98.0 82 28 105/55 (72) 96 99/60 (73) 05/20/17 23:00 92 05/20/17 22:58 97 40 05/20/17 22:00 92 Bi-Pap 40 05/20/17 22:00 93/67 05/20/17 20:30 97 Nasal Cannula 05/20/17 19:35 99 40 05/20/17 19:30 122/67 05/20/17 19:30 98.4 82 28 122/67 (85) 96 115/65 (82) 05/20/17 19:15 90 Bi-Pap 40 05/20/17 19:00 97 Nasal Cannula 4.00 05/20/17 19:00 82 05/20/17 18:19 83 106/65 05/20/17 17:11 97 40 05/20/17 15:00 81 05/20/17 15:00 97.9 81 20 122/62 (82) 96 108/51 (70) -: 05/21/17 0400 05/21/17 0400 Physical Exam General Appearance: Well Developed, No Acute Distress Eyes Eye Exam: Pupils Equal Ears & Nose Ears & Nose Exam: Tympanic Membranes Normal Throat Throat Exam: Oral Mucosa [place] & Moist Neck Neck Exam: Neck Supple Pulmonary Resp Exam: Clear Bilaterally Cardiology CV Exam: Regular, Normal Sinus Rhythm Gastrointestinal/Abdomen GI Exam: Soft, Non-Tender Genitourinary Exam: Clear Urine Integumentary Skin Exam: Intact Extremeties Extremities Exam: No Edema Assessment/Plan Problem List: (1) Acute renal failure ICD Codes: N17.9 - Acute kidney failure, unspecified Plan: He has type B aortic dissection. Continue to monitor. He did receive iodinated contrast. Monitor intake and output Control blood pressure. Multiple drips are ordered. Avoid nephrotoxins. 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
[2017-05-21] MEDS: ESMOLOL DRIP INJ PREMIX 250 ML IV PRN ×2 (17:05→22:55)
[2017-05-21] MEDS: ATORVASTATIN 40 MG TAB PO SCH (20:07)
[2017-05-22] VITALS (13 sets, daily range): BP systolic 97–123; BP diastolic 45–70; PULSE 79–91; RESP 17–30; TEMP 97.6–98.9; O2SAT 92–99
[2017-05-22] MEDS: NS IV PRN ×10 (00:11→23:14)
[2017-05-22] MEDS: LABETALOL IV PRN ×10 (00:11→23:14)
[2017-05-22] MEDS: ESMOLOL DRIP INJ PREMIX 250 ML IV PRN ×4 (02:47→23:32)
[2017-05-22] MEDS: CHLORHEXIDINE GLUCONATE 2 % 1 PACK (2 CLOTHS) TOP SCH (04:00)
[2017-05-22] MEDS: HEPARIN SODIUM - SQ 10,000 UNITS/ML VIAL SQ SCH ×3 (04:17→22:04)
[2017-05-22 06:16] LABS: ALBUMIN 2.9 GM/DL (3.4-5.0); BICARBONATE 26.2 MEQ/L (21.0-32.0); CALCIUM 8.3 MG/DL (8.5-10.1); CREATININE 1.25 MG/DL (0.60-1.30); DIRECT BILIRUBIN ADULT 0.1 MG/DL (0.0-0.2)
[2017-05-22 06:19] LABS: INDIRECT BILIRUBIN 0.5 MG/DL (0.0-0.8); TOTAL BILIRUBIN ADULT 0.6 MG/DL (0.2-1.0); TOTAL PROTEIN 6.3 GM/DL (6.4-8.2)
--- NOTE | 2017-05-22 08:55 | HHI.NPPN ---
Subjective Interval History Renal function has improved. Non oliguric. Positive fluid balance. Objective Data Data Vital Signs Date Time Temp Pulse Resp B/P (MAP) Pulse Ox O2 Delivery O2 Flow Rate FiO2 05/22/17 08:10 92 Nasal Cannula 6.00 05/22/17 08:00 98.8 87 20 113/59 (77) 92 Arterial Line 05/22/17 07:00 79 05/22/17 03:49 86 05/22/17 03:49 98.9 91 17 98 117/62 (80) 05/22/17 03:49 97 Nasal Cannula 4.00 05/22/17 02:47 84 109/49 05/21/17 23:48 98 35 05/21/17 23:45 99.0 95 18 98 115/59 (77) 05/21/17 23:45 95 05/21/17 23:45 97 Nasal Cannula 4.00 05/21/17 22:55 96 112/62 05/21/17 19:58 97 35 05/21/17 19:58 97 BiPAP 35 05/21/17 19:52 97 Nasal Cannula 4.00 05/21/17 19:52 99.7 91 18 89/71 (77) 97 137/74 (95) 05/21/17 19:00 97 05/21/17 17:05 98 141/78 05/21/17 15:19 97 Nasal Cannula 4.00 05/21/17 15:17 98.4 91 20 102/80 (87) 97 120/60 (80) 05/21/17 15:00 92 05/21/17 12:00 Bi-Pap 05/21/17 12:00 98.6 94 20 98/90 (93) 96 110/55 (73) 05/21/17 12:00 87 05/21/17 11:42 98 35 -: 05/21/17 0400 05/22/17 0445 Physical Exam General Appearance: Well Developed, No Acute Distress Eyes Eye Exam: Pupils Equal Ears & Nose Ears & Nose Exam: Tympanic Membranes Normal Throat Throat Exam: Oral Mucosa [place] & Moist Neck Neck Exam: Neck Supple Pulmonary Resp Exam: Clear Bilaterally Cardiology CV Exam: Regular, Normal Sinus Rhythm Gastrointestinal/Abdomen GI Exam: Soft, Non-Tender Genitourinary Exam: Clear Urine Integumentary Skin Exam: Intact Extremeties Extremities Exam: No Edema Assessment/Plan Problem List: (1) Acute renal failure ICD Codes: N17.9 - Acute kidney failure, unspecified Plan: He has type B aortic dissection. I cannot find CT imaging or report, but apparently, kidneys are being perfused via false lume. Continue to monitor. He did receive iodinated contrast, however renal function has improved. Positive fluid balance, taper off fluids. Encourage oral intake. Monitor intake and output Control blood pressure. Multiple drips are ordered. Avoid nephrotoxins. 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
[2017-05-22] MEDS: FAMOTIDINE 20 MG TAB PO SCH ×2 (08:59→21:00)
[2017-05-22] MEDS: FAMOTIDINE 20 MG/2 ML VIAL IV PUSH SCH ×2 (08:59→22:04)
[2017-05-22] MEDS: DOCUSATE SODIUM 50 MG/SENNA 8.6 MG TAB PO SCH ×2 (08:59→22:04)
[2017-05-22] MEDS: METOPROLOL TARTRATE 5 MG/5 ML VIAL IV PUSH PRN ×6 (09:19→17:16)
[2017-05-22] MEDS: hydrALAZINE HCL 20 MG/ML VIAL IV PUSH PRN (09:19)
[2017-05-22] MEDS: LABETALOL HCL 100 MG/20 ML VIAL IV PUSH PRN ×2 (09:20→11:39)
[2017-05-22] MEDS: POTASSIUM CHLOR 20 MEQ PREMIX 100 ML IV PRN ×2 (09:29→11:02)
--- NOTE | 2017-05-22 12:40 | HHI.CCPN ---
Subjective Remarks/Hospital Course 05/19: Is a 36-year-old male with a history of hypertension who is on vacation from the [place] area who did not take his antihypertensives today because he is on vacation, and was having sexual intercourse when he had sudden onset of severe substernal radiating to the back chest pain earlier today. 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 He was emergently transferred to [facility] for further management. I evaluated the patient on arrival to the ICU by EVAC. Patient denies abdominal pain. Still endorses chest pain although this is improving. Patient denies any other symptoms. CT chest abdomen pelvis was reviewed and reviewed with myself and Dr. Guzman and does demonstrate a type B dissection. 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 Initial laboratory evidence demonstrates a lactate of 1.3, creatinine 1.2, normal LFTs. 3: On home C Pap. Urine output 30 cc/h currently. Remains on esmolol and labetalol drips. Remains drowsy though arousable. +4.4 L 05/21: Resting comfortably on nasal cannula. Awake and alert currently. Denies any shortness of breath or chest pain currently. 05/22: AAO x3, resting comfortably. Objective Vital Signs Date Time Temp Pulse Resp B/P (MAP) Pulse Ox O2 Delivery O2 Flow Rate FiO2 05/22/17 11:27 98.6 84 20 106/46 (66) 95 05/22/17 11:25 Nasal Cannula 4.00 05/22/17 09:20 35 Intake and Output 05/22/17 05/22/17 05/23/17 08:00 16:00 00:00 Intake Total 2659 ml 0 ml Output Total 835 ml Balance 1824 ml 0 ml Result Diagram: 05/21/17 0400 05/22/17 0445 Imaging Last Impressions Chest X-Ray 05/19/17 0000 Signed Impressions: Service Date/Time: May 20:05 - CONCLUSION: Enlargement of the aortic arch suggesting aneurysm. Mild cardiomegaly. Mild increased interstitial markings consistent with possible central pulmonary vascular congestion. Lobo Ibarra MD Objective Remarks GENERAL: Young -Mongolian male, lying in bed on nasal cannula HEENT: Normocephalic. Atraumatic. Pupils equal, round, reactive, conjugate. Mucous membranes are moist NECK: Trachea is midline. There is no JVD. CHEST: Good air entry bilaterally no wheezing or crackles CARDIOVASCULAR: S1-S2 regular, no gallop or murmur. On labetalol and esmolol drips ABDOMEN: Soft, nontender, nondistended. No guarding. MUSCULOSKELETAL: Pulses 2+. No peripheral edema. Bilateral upper extremity radial pulses are equal. Bilateral lower extremity pulses are palpable. NEUROLOGICAL: Awake alert oriented 3, moves all 4 extremities. No focal deficits. A/P Assessment and Plan Assessment: 36-year-old male with new acute type B dissection and hypertensive emergency. Patient remains critically on high risk for decompensation. Admitted to ICU. Aggressive blood pressure management with goal systolic blood pressure less than 120 and heart rate less than 70. Serial lactate. Close monitoring of urine output. Active problems: Acute kidney injury Acute type B dissection Hypertensive emergency Plan: Admitted to ICU Arterial line placed Labetalol drip, esmolol drip, Clevidipine drip as needed Goal systolic blood pressure less than 120 Goal heart rate less than 70 As needed labetalol, hydralazine, metoprolol, diltiazem as needed to achieve goal hemodynamics. Check 2-D echo, BNP. Frequent neurovascular checks Daily CMP, CBC Close monitoring of urine output. May need Ledesma. Nephrology consult requested in v/o rising creatinine with significant positive fluid balance with renal artery involvement by aortic dissection as well as contrast exposure. + 4.4 L on 05/20. PO diet. Maintenance IV fluids Vascular consult: Dr. Guzman. Repeat CTA planned for 05/23 SCDs Hold pharmacologic DVT prophylaxis given new acute dissection This patient remains critically ill with one or more organ systems which are or may become a threat to life. I have spent in excess of 30 minutes discontinuously in the care and management of this patient. This time is exclusive of procedures, and includes, but is not limited to, evaluation of the patient, review of the medical record, discussions with family, consultants, nursing staff, or respiratory therapy, and documentation in the medical record. Paul Arango MD May 22, 2017 12:40
[2017-05-22] MEDS: METOPROLOL TARTRATE 25 MG TAB PO SCH ×3 (13:21→22:04)
[2017-05-22] MEDS: ATORVASTATIN 40 MG TAB PO SCH (22:04)
[2017-05-23] VITALS (13 sets, daily range): BP systolic 98–143; BP diastolic 71–91; PULSE 74–80; RESP 16; TEMP 97.2–98.7; O2SAT 94–100
[2017-05-23] MEDS ORDERED: PROPOFOL 500 MG/50 ML INJ 50 ML ONE (00:19)
--- NOTE | 2017-05-23 00:44 | RADRPT ---
EXAM DATE/TIME: 05/23/2017 00:04 [facility] COMPARISON: CHEST SINGLE AP, May 20, 2017, 15:11. INDICATIONS : Short of breath. MEDICAL HISTORY : None. SURGICAL HISTORY : None. ENCOUNTER: Subsequent ACUITY: 3 days PAIN SCORE: 0/10 LOCATION: Bilateral chest FINDINGS: Portable AP view of the chest demonstrates a normal-sized cardiac silhouette. Endotracheal tube dista l tip measures 2.9 cm from the julee. There is elevation of the right hemidiaphragm. There is atelec tasis versus consolidation in the left lower lobe. No pleural effusion or pneumothorax is seen. Bones and soft tissues demonstrate no acute abnormality. CONCLUSION: 1. Atelectasis versus consolidation in the left lower lobe. 2. Endotracheal tube tip measures 2.9 cm from the julee. Wiliam Buck MD on May 23, 2017 at 0:41 Board Certified Radiologist. This report was verified electronically.
[2017-05-23] MEDS: PROPOFOL 1000 MG/100 ML INJ 100 ML IV PRN ×6 (01:00→22:32)
--- NOTE | 2017-05-23 01:01 | PD.PROCEDR ---
Procedure Note Procedure Date: 05/23/17 Procedure: Cardiopulmonary resucitation Indication: PEA cardiac arrest Details of procedure: Was in process of intubating another patient in [facility] when KRISTINA POLANCO called. Responded to KRISTINA POLANCO HARSHA. Reportedly patient on Bipap due to CORI and had taken mask off and had desaturation and then alex PEA. Patient had been on esmolol 150 mcg/kg/min and Labetalol 4 mg/hr which had been discontinued and CPR and BVM was ongoing upon my arrival. . Upon arrival placed oropharyngeal airway and made preparations for advanced airway placement. Patient received Epinephrine 1 mg IV x2 doses. Bolused with NS1 L. After 14 minutes ROSC was obtained. Patient is in sinus rhythm and hypertensive with SBP 180. Esmolol drip resumed. Mercy Pro MD May 23, 2017 01:01
[2017-05-23 01:18] LABS: AUTOMATED NEUTROPHIL # 7.9 TH/MM3 (1.8-7.7); BASOPHIL % 0.3 % (0.0-2.0); EOSINOPHIL # 0.1 TH/MM3 (0-0.4); EOSINOPHIL % 1.2 % (0.0-4.0); HEMATOCRIT 24.3 % (39.0-51.0); HEMOGLOBIN 8.5 GM/DL (13.0-17.0); LYMPH % 9.7 % (9.0-44.0); LYMPHOCYTE # 0.9 TH/MM3 (1.0-4.8); MEAN CELL VOLUME 78.8 FL (80.0-100.0); MEAN CORPUSCULAR HEMOGLOBIN 27.7 PG (27.0-34.0); MEAN CORPUSCULAR HGB CONC 35.2 % (32.0-36.0); MEAN PLATELET VOLUME 7.6 FL (7.0-11.0); MONOCYTE # 0.5 TH/MM3 (0-0.9); NEUT % 83.8 % (16.0-70.0); PLATELET COUNT 190 TH/MM3 (150-450); RED BLOOD COUNT 3.08 MIL/MM3 (4.50-5.90); RED CELL DISTRIBUTION WIDTH 15.4 % (11.6-17.2); WHITE BLOOD COUNT 9.4 TH/MM3 (4.0-11.0)
[2017-05-23 01:27] LABS: ALBUMIN 2.5 GM/DL (3.4-5.0); AST (GOT) 128 U/L (15-37); BICARBONATE 23.4 MEQ/L (21.0-32.0); BLOOD UREA NITROGEN 21 MG/DL (7-18); CALCIUM 7.6 MG/DL (8.5-10.1); CHLORIDE 103 MEQ/L (98-107); CREATININE 1.54 MG/DL (0.60-1.30); GLOMERULAR FILTRATION RATE 62 ML/MIN (>89); GLUCOSE,RANDOM 144 MG/DL (74-106); MAGNESIUM 1.7 MG/DL (1.5-2.5); SODIUM (NA) 137 MEQ/L (136-145)
[2017-05-23 01:28] LABS: ALT (GPT) 303 U/L (12-78); PHOSPHORUS 3.3 MG/DL (2.5-4.9)
[2017-05-23 01:29] LABS: INTERNATIONAL NORMALIZED RATIO 1.2 RATIO
[2017-05-23 01:31] LABS: ALKALINE PHOSPHATASE 60 U/L (45-117); TOTAL BILIRUBIN ADULT 0.8 MG/DL (0.2-1.0); TOTAL PROTEIN 5.8 GM/DL (6.4-8.2)
[2017-05-23 01:35] LABS: TROPONIN I 0.94 NG/ML (0.02-0.05)
--- NOTE | 2017-05-23 02:06 | PD.PROCEDR ---
Procedure Note Procedure PROCEDURE NOTE PROCEDURE: Endotracheal intubation INDICATION: Acute respiratory failure DETAILS OF PROCEDURE: CPR was ongoing and patient was bagged with bag valve mask. Oropharyngeal airway was inserted and bagging continued. Patient had anterior airway and while positioned for ongoing CPR was unable to visualize the cords using 4 Mac or 2 Vasquez. Continued bagging patient with oropharyngeal airway and BVM getting adequate chest rise. Obtained Glidescope which produced Grade I view. On single attempt with Glidescope, a size 8 endotracheal tube was visualized passing through the cords. Correct placement was confirmed with colorimetric CO2 detector. Breath sounds were equal bilaterally. No sounds auscultated over the stomach. The endotracheal tube was secured with a commercial tube galindo. Bagging continued. CXR showed endotracheal tube position without apparent complication Mercy Pro MD May 23, 2017 02:06
--- NOTE | 2017-05-23 02:06 | PD.PROCEDR ---
Procedure Note Procedure DATE: 05/23/17 PROCEDURE: Right radial art line placement INDICATION: Hemodynamic monitoring of patient with aortic dissection and cardiac arrest. DETAILS OF PROCEDURE The patient was in supine position. The skin was cleansed with Chloraprep x2. Additional barrier precautions included large sterile drape, sterile gloves, sterile gown, face mask, and hat. Patient was having tactile myoclonus. Audio Visual Production Specialist helped to stabilize his arm. Under direct ultrasound guidance and on the second attempt, the right radail artery was accessed with 20 gauge Arrow QuickFlash Catheter. Using Seldinger technique 20 gauge arterial catheter was placed. The needele and guide wire was removed. The catheter was connected to a transducer line and flushed with saline. The video monitor displayed normal arterial wave forms. The catheter was secured with 2-0 silk. A sterile dressing with antibiotic disc was applied. ESTIMATED BLOOD LOSS: minimal COMPLICATIONS: None Mercy Pro MD May 23, 2017 02:06
[2017-05-23] MEDS ORDERED: EPINEPHrine HCL (1:10,000) 1 MG/10 ML SYRINGE ONE ×2 (03:43→09:31)
[2017-05-23] MEDS: CHLORHEXIDINE GLUCONATE 2 % 1 PACK (2 CLOTHS) TOP SCH (04:00)
[2017-05-23] MEDS: HEPARIN SODIUM - SQ 10,000 UNITS/ML VIAL SQ SCH (04:00)
[2017-05-23] MEDS: ESMOLOL DRIP INJ PREMIX 250 ML IV PRN ×4 (04:25→13:05)
[2017-05-23] MEDS ORDERED: IOHEXOL 350 MG/ML 10 ML VIAL (for RAD DIAG) IVCONTRAST ONE (04:41)
[2017-05-23] MEDS ORDERED: EPINEPHrine HCL (1:10,000) 1 MG/10 ML SYRINGE IV ONE (05:00)
--- NOTE | 2017-05-23 05:00 | RADRPT ---
EXAM DATE/TIME: 05/23/2017 03:56 [facility] COMPARISON: No previous studies available for comparison. INDICATIONS : Altered mental status. RADIATION DOSE: 66.34 CTDIvol (mGy) MEDICAL HISTORY : Hypertension. SURGICAL HISTORY : None. ENCOUNTER: Initial ACUITY: 1 day PAIN SCALE: Non-responsive LOCATION: cranial TECHNIQUE: Multiple contiguous axial images were obtained of the head. Using automated exposure control and adj ustment of the mA and/or kV according to patient size, radiation dose was kept as low as reasonably a chievable to obtain optimal diagnostic quality images. DICOM format image data is available electro nically for review and comparison. FINDINGS: Examination quality is degraded by motion artifact. CEREBRUM: Ventricles are normal. There is a 3 mm focus in the left periventricular frontal white matter. Otherw ise, no evidence of midline shift, mass lesion, hemorrhage or acute infarction. No extra-axial fluid collections are seen. POSTERIOR FOSSA: The cerebellum and brainstem are intact. The 4th ventricle is midline. The cerebellopontine angle i s unremarkable. EXTRACRANIAL: There is mild mucoperiosteal thickening within the paranasal sinuses. SKULL: The calvaria is intact. No evidence of skull fracture. CONCLUSION: 1. Examination quality is degraded by motion artifact. 2. No definite acute finding is identified. There is a 3 mm punctate area of high density in the left frontal periventricular white matter. This could represent small focus of acute blood products. Sugg est attention to this on followup imaging. Wiliam Buck MD on May 23, 2017 at 4:56 Board Certified Radiologist. This report was verified electronically.
--- NOTE | 2017-05-23 05:11 | RADRPT ---
EXAM DATE/TIME: 05/23/2017 03:58 [facility] COMPARISON: No previous studies available for comparison. INDICATIONS : Acute Type B aortic dissection. IV CONTRAST: 75 cc Omnipaque 350 (iohexol) IV RADIATION DOSE: 9.94 CTDIvol (mGy) MEDICAL HISTORY : Hypertension. SURGICAL HISTORY : None. ENCOUNTER: Initial ACUITY: 4 - 6 days PAIN SCALE: Non-responsive LOCATION: chest TECHNIQUE: Volumetric scanning was performed using a multi-row detector CT scanner. The data was post processed with a variety of visualization algorithms including full volume maximum intensity projection, multi -planar sliding thin slab reformation, curved planar reformation, and surface rendering techniques. Using automated exposure control and adjustment of the mA and/or kV according to patient size, radiat ion dose was kept as low as reasonably achievable to obtain optimal diagnostic quality images. DICOM format image data is available electronically for review and comparison. FINDINGS: LUNGS: There is bilateral airspace consolidation and atelectasis. There is a small left pleural effusion and trace right pleural fluid. MEDIASTINUM: Heart demonstrates no acute abnormality. No lymphadenopathy is seen. Right IJ central line tip is in the upper right atrium. ETT is present and nasogastric tube distal tip is in the gastric body. ABDOMEN: Liver demonstrates no acute finding. High density material within the gallbladder likely represents v icarious excretion of contrast material. The kidneys, spleen, and pancreas demonstrate no acute findi ng and demonstrate normal perfusion. PELVIS: Ledesma catheter is present within a decompressed urinary bladder. There is trace free fluid in the pel vis. THORACIC AORTA: The ascending aorta is normal in size measuring up to 2.7 cm. 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 A dissection begins in the distal arc h just distal to the left subclavian artery. The true lumen is smaller than the false lumen. There is stranding surrounding the distal aortic arch aneurysm at the origin of the dissection. ABDOMINAL AORTA: The abdominal aorta is non-aneurysmal but the dissection extends distally to the bifurcation and slig htly extends into the left common iliac artery. There is wall thickening of the right common iliac ar ana. The celiac trunk demonstrates narrowing at its origin with slight stranding around the proximal trunk. It arises from the false lumen. The superior mesenteric artery arises from the true lumen and demonstrates normal opacification. Renal arteries are opacified bilaterally. The MARIA C arises from the false lumen and is opacified. PELVIC VESSELS: The dissection extends into the left proximal common iliac artery. There is thickening of the wall of the right common iliac artery. The external and internal iliac artery branches are within normal giang its. CONCLUSION: 1. 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 The dissection extends to the abdominal aorta and terminates in the common iliac arteries bilaterally. The abdominal vessels arise from both the tr ue and false lumens and demonstrate good opacification. Suggest correlating with the patient's prior imaging study which documents the dissection. 2. 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 3. There is stranding of the periaortic fat adjacent to the arch aneurysm. 4. There are small bilateral pleural effusions, left larger than right, with bilateral volume loss an d/or airspace consolidation bilaterally. Wiliam Buck MD on May 23, 2017 at 4:58 Board Certified Radiologist. This report was verified electronically.
[2017-05-23] MEDS: METOPROLOL TARTRATE 25 MG TAB PO SCH ×3 (05:41→17:37)
[2017-05-23 06:24] LABS: ALBUMIN 2.4 GM/DL (3.4-5.0); BICARBONATE 24.8 MEQ/L (21.0-32.0); CREATININE 1.84 MG/DL (0.60-1.30); DIRECT BILIRUBIN ADULT 0.2 MG/DL (0.0-0.2)
[2017-05-23 06:28] LABS: INDIRECT BILIRUBIN 0.3 MG/DL (0.0-0.8); TOTAL BILIRUBIN ADULT 0.5 MG/DL (0.2-1.0); TOTAL PROTEIN 5.7 GM/DL (6.4-8.2)
[2017-05-23 06:32] LABS: TROPONIN I 0.98 NG/ML (0.02-0.05)
--- NOTE | 2017-05-23 07:30 | PD.VS.PN ---
Subjective Subjective/Hospital Course No events yesterday until last night - PEA arrest potentially due to hypoxia. Intubated and now sedated. Good gas exchange. CTA after intubation showed stable aTBAD without malperfusion and no rupture. CT head shows possible punctate hemorrhage L side. Objective Vitals/I&O Date Time Temp Pulse Resp B/P (MAP) Pulse Ox O2 Delivery O2 Flow Rate FiO2 05/23/17 06:50 83 158/84 05/23/17 04:45 98 50 05/23/17 04:25 81 111/59 05/23/17 03:00 98.5 80 16 115/76 (89) 99 05/23/17 03:00 99 Mechanical Ventilator 100 05/23/17 03:00 100 05/23/17 03:00 80 05/23/17 01:58 99 50 05/23/17 00:20 100 100 05/23/17 00:15 100 05/23/17 00:00 100 05/22/17 23:40 15.00 100 05/22/17 23:32 80 105/60 05/22/17 23:13 89 130/65 05/22/17 23:00 97.6 80 22 97/68 (78) 95 05/22/17 23:00 79 05/22/17 23:00 95 Bi-Pap 35 05/22/17 20:10 97 BiPAP 35 05/22/17 20:10 96 05/22/17 19:00 95 Bi-Pap 35 05/22/17 19:00 98.2 82 30 109/45 (66) 95 05/22/17 19:00 84 05/22/17 17:39 99 35 05/22/17 15:13 98.8 89 20 123/70 (87) 95 05/22/17 15:12 92 Room Air 05/22/17 15:00 87 05/22/17 11:27 98.6 84 20 106/46 (66) 95 05/22/17 11:25 92 Nasal Cannula 4.00 05/22/17 11:00 84 05/22/17 09:20 97 35 05/22/17 09:13 93 Nasal Cannula 6.00 05/22/17 08:59 83 113/62 05/22/17 08:10 92 Nasal Cannula 6.00 05/22/17 08:00 98.8 87 20 113/59 (77) 92 Arterial Line 05/23/17 05/23/17 05/23/17 07:00 15:00 23:00 Intake Total 240 ml Output Total 600 ml Balance -360 ml Physical Exam Intubated, sedated. [facility] Laboratory Laboratory Tests Test 05/23/17 00:50 05/23/17 01:00 05/23/17 05:30 Blood Gas Puncture Site ART LINE Blood Gas Patient Temperature 98.6 Blood Gas HCO3 22 Blood Gas Base Excess -2.3 Blood Gas Oxygen Saturation 98 Arterial Blood pH 7.37 Arterial Blood Partial Pressure CO2 40 Arterial Blood Partial Pressure O2 338 Arterial Blood Oxygen Content 12.7 Arterial Blood Carboxyhemoglobin 0.9 Arterial Blood Methemoglobin 1.2 Blood Gas Hemoglobin 8.6 Oxygen Delivery Device VENTILATOR Blood Gas Ventilator Setting PRVC/AC Blood Gas Inspired Oxygen 100 White Blood Count 9.4 Red Blood Count 3.08 Hemoglobin 8.5 Hematocrit 24.3 Mean Corpuscular Volume 78.8 Mean Corpuscular Hemoglobin 27.7 Mean Corpuscular Hemoglobin Concent 35.2 Red Cell Distribution Width 15.4 Platelet Count 190 Mean Platelet Volume 7.6 Neutrophils (%) (Auto) 83.8 Lymphocytes (%) (Auto) 9.7 Monocytes (%) (Auto) 5.0 Eosinophils (%) (Auto) 1.2 Basophils (%) (Auto) 0.3 Neutrophils # (Auto) 7.9 Lymphocytes # (Auto) 0.9 Monocytes # (Auto) 0.5 Eosinophils # (Auto) 0.1 Basophils # (Auto) 0.0 CBC Comment DIFF FINAL Differential Comment Prothrombin Time 12.0 Prothromb Time International Ratio 1.2 Blood Urea Nitrogen 21 24 Creatinine 1.54 1.84 Random Glucose 144 100 Total Protein 5.8 5.7 Albumin 2.5 2.4 Calcium Level 7.6 8.0 Phosphorus Level 3.3 Magnesium Level 1.7 Alkaline Phosphatase 60 59 Aspartate Amino Transf (AST/SGOT) 128 121 Alanine Aminotransferase (ALT/SGPT) 303 289 Total Bilirubin 0.8 0.5 Sodium Level 137 137 Potassium Level 3.5 3.5 Chloride Level 103 104 Carbon Dioxide Level 23.4 24.8 Anion Gap 11 8 Estimat Glomerular Filtration Rate 62 51 Lactic Acid Level 2.2 Troponin I 0.94 0.98 Direct Bilirubin 0.2 Indirect Bilirubin 0.3 Date/Time Source Procedure Growth Status 05/23/17 02:21 Blood Peripheral Aerobic Blood Culture Pending Received 05/23/17 02:21 Blood Peripheral Anaerobic Blood Culture Pending Received 05/23/17 05:30 Sputum Endotracheal Gram Stain Pending Received 05/23/17 05:30 Sputum Endotracheal Sputum Culture Pending Received Imaging Last [address] 05/23/17 0000 Signed Impressions: Service Date/Time: Tuesday, May 23, 2017 03:56 - CONCLUSION: 1. Examination quality is degraded by motion artifact. 2. No definite acute finding is identified. There is a 3 mm punctate area of high density in the left frontal periventricular white matter. This could represent small focus of acute blood products. Suggest attention to this on followup imaging. Wiliam Buck MD Chest X-Ray 05/23/17 0000 Signed Impressions: Service Date/Time: Tuesday, May 23, 2017 00:04 - CONCLUSION: 1. Atelectasis versus consolidation in the left lower lobe. 2. Endotracheal tube tip measures 2.9 cm from the julee. Wiliam Buck MD Aorta CTA 05/23/17 0000 Signed Impressions: Service Date/Time: Tuesday, May 23, 2017 03:58 - CONCLUSION: 1. 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 The dissection extends to the abdominal aorta and terminates in the common iliac arteries bilaterally. The abdominal vessels arise from both the true and false lumens and demonstrate good opacification. Suggest correlating with the patient's prior imaging study which documents the dissection. 2. 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 3. There is stranding of the periaortic fat adjacent to the arch aneurysm. 4. There are small bilateral pleural effusions, left larger than right, with bilateral volume loss and/or airspace consolidation bilaterally. Wiliam Buck MD Assessment and Plan Plan acute TBAD without compromising features on repeat CTA. Cr, LFTs ok. ? Hypoxic event last night 1. BP control for aTBAD with goal SBP 110-120 2. Lighten sedation and wean vent 3. Ok to start trickle feeds enterally 4. Transition to ICU/medical service as no surgical intervention for aTBAD - likely to need repeat CT in 1m as outpatient Discussed aortic prognosis and overall clinical picture with the patient's , brother at bedside Lobo Guzman MD FACS [employer] supply chain development manager [facility] - Heart and Vascular Surgery at [facility] [phone] Lobo Guzman MD May 23, 2017 07:30
[2017-05-23] MEDS: PIPERACIL-TAZO 4.5 GM PREMIX 100 ML IV SCH ×3 (08:00→17:37)
[2017-05-23] MEDS: DOCUSATE SODIUM 50 MG/SENNA 8.6 MG TAB PO SCH ×2 (08:57→21:27)
[2017-05-23] MEDS: FAMOTIDINE 20 MG TAB PO SCH ×2 (08:58→21:00)
[2017-05-23] MEDS: CHLORHEXIDINE 0.12% (ORAL KIT) 15 ML CUP MT SCH ×2 (08:58→21:28)
[2017-05-23] MEDS: FAMOTIDINE 20 MG/2 ML VIAL IV PUSH SCH ×2 (08:58→21:27)
--- NOTE | 2017-05-23 09:07 | RADRPT ---
EXAM DATE/TIME: 05/23/2017 08:02 [facility] COMPARISON: No previous studies available for comparison. INDICATIONS : Bilateral leg swelling. MEDICAL HISTORY : Back Pain. Fatigue. SURGICAL HISTORY : None. ENCOUNTER: Initial ACUITY: 1 day PAIN SCORE: Non-responsive LOCATION: Bilateral leg. TECHNIQUE: Venous ultrasound of the left and right leg was performed from the inguinal ligament t o the proximal calf. Real-time, color Doppler and spectral tracing, compression and augmentation la hniques were used. Exam limited by patient cooperation at this FINDINGS: RIGHT LEG: There is normal compressibility of the deep venous system from the inguinal region to the proximal calf. No echogenic clot is seen in the lumen of the common femoral, femoral, popliteal, and posterior tibial veins. There is a normal response of the venous system to proximal and distal augmentation and respiration. LEFT LEG: There is normal compressibility of the deep venous system from the inguinal region to t he proximal calf. No echogenic clot is seen in the lumen of the common femoral, femoral, popliteal, and posterior tibial veins. There is a normal response of the venous system to proximal and distal a ugmentation and respiration. CONCLUSION: Negative for deep venous thrombosis. Buddy Harrison MD FACR on May 23, 2017 at 9:03 Board Certified Radiologist. This report was verified electronically.
--- NOTE | 2017-05-23 09:42 | MG ---
cc: Alejandro Espinosa MD Electroencephalogram 18-342 A 36-year-old, sedation turned off in the morning. High density, left frontal periventricular hemorrhage, CPAP, back pain, heparin. A lot of diffuse muscle artifact is seen including a lot of synchronous and symmetric with low amplitude beta rhythms. Some theta rhythms are also seen to 6 Hz. No epileptiform or seizure activity is noted. This are no hemisphere asymmetries. Photic stimulation is performed without significant posterior driving. IMPRESSION: A low amplitude recording system with a mild diffuse encephalopathy but no focal abnormality was noted. No seizure activity was seen. MD KATIE Bridges/BENITO , 09:20 AM , 09:41 AM
--- NOTE | 2017-05-23 11:15 | HHI.CCPN ---
Subjective Remarks/Hospital Course 05/19: Is a 36-year-old male with a history of hypertension who is on vacation from the [place] area who did not take his antihypertensives today because he is on vacation, and was having sexual intercourse when he had sudden onset of severe substernal radiating to the back chest pain earlier today. 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 He was emergently transferred to [facility] for further management. I evaluated the patient on arrival to the ICU by EVAC. Patient denies abdominal pain. Still endorses chest pain although this is improving. Patient denies any other symptoms. CT chest abdomen pelvis was reviewed and reviewed with myself and Dr. Guzman and does demonstrate a type B dissection. 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 Initial laboratory evidence demonstrates a lactate of 1.3, creatinine 1.2, normal LFTs. 05/20: On home C Pap. Urine output 30 cc/h currently. Remains on esmolol and labetalol drips. Remains drowsy though arousable. +4.4 L 05/21: Resting comfortably on nasal cannula. Awake and alert currently. Denies any shortness of breath or chest pain currently. 05/22: AAO x3, resting comfortably. 05/23 Patient went into PEA arrest early this morning now sedated with Diprivan and intubated. Off Esmolol drip. Objective Vital Signs Date Time Temp Pulse Resp B/P (MAP) Pulse Ox O2 Delivery O2 Flow Rate FiO2 05/23/17 10:20 100 40 05/23/17 08:00 Mechanical Ventilator 05/23/17 07:00 78 05/23/17 07:00 97.2 16 122/71 (88) 141/91 (108) 05/22/17 23:40 15.00 Intake and Output 05/23/17 05/23/17 05/24/17 08:00 16:00 00:00 Intake Total 940 ml Output Total 600 ml Balance 340 ml Result Diagram: 05/23/17 0100 05/23/17 0530 Other Results Laboratory Tests Test 05/23/17 00:50 05/23/17 01:00 05/23/17 05:30 Blood Gas Puncture Site ART LINE Blood Gas Patient Temperature 98.6 Blood Gas HCO3 22 mmol/L Blood Gas Base Excess -2.3 mmol/L Blood Gas Oxygen Saturation 98 % Arterial Blood pH 7.37 Arterial Blood Partial Pressure CO2 40 mmHg Arterial Blood Partial Pressure O2 338 mmHg Arterial Blood Oxygen Content 12.7 Vol % Arterial Blood Carboxyhemoglobin 0.9 % Arterial Blood Methemoglobin 1.2 % Blood Gas Hemoglobin 8.6 G/DL Oxygen Delivery Device VENTILATOR Blood Gas Ventilator Setting PRVC/AC Blood Gas Inspired Oxygen 100 % White Blood Count 9.4 TH/MM3 Red Blood Count 3.08 MIL/MM3 Hemoglobin 8.5 GM/DL Hematocrit 24.3 % Mean Corpuscular Volume 78.8 FL Mean Corpuscular Hemoglobin 27.7 PG Mean Corpuscular Hemoglobin Concent 35.2 % Red Cell Distribution Width 15.4 % Platelet Count 190 TH/MM3 Mean Platelet Volume 7.6 FL Neutrophils (%) (Auto) 83.8 % Lymphocytes (%) (Auto) 9.7 % Monocytes (%) (Auto) 5.0 % Eosinophils (%) (Auto) 1.2 % Basophils (%) (Auto) 0.3 % Neutrophils # (Auto) 7.9 TH/MM3 Lymphocytes # (Auto) 0.9 TH/MM3 Monocytes # (Auto) 0.5 TH/MM3 Eosinophils # (Auto) 0.1 TH/MM3 Basophils # (Auto) 0.0 TH/MM3 CBC Comment DIFF FINAL Differential Comment Prothrombin Time 12.0 SEC Prothromb Time International Ratio 1.2 RATIO Blood Urea Nitrogen 21 MG/DL 24 MG/DL Creatinine 1.54 MG/DL 1.84 MG/DL Random Glucose 144 MG/DL 100 MG/DL Total Protein 5.8 GM/DL 5.7 GM/DL Albumin 2.5 GM/DL 2.4 GM/DL Calcium Level 7.6 MG/DL 8.0 MG/DL Phosphorus Level 3.3 MG/DL Magnesium Level 1.7 MG/DL Alkaline Phosphatase 60 U/L 59 U/L Aspartate Amino Transf (AST/SGOT) 128 U/L 121 U/L Alanine Aminotransferase (ALT/SGPT) 303 U/L 289 U/L Total Bilirubin 0.8 MG/DL 0.5 MG/DL Sodium Level 137 MEQ/L 137 MEQ/L Potassium Level 3.5 MEQ/L 3.5 MEQ/L Chloride Level 103 MEQ/L 104 MEQ/L Carbon Dioxide Level 23.4 MEQ/L 24.8 MEQ/L Anion Gap 11 MEQ/L 8 MEQ/L Estimat Glomerular Filtration Rate 62 ML/MIN 51 ML/MIN Lactic Acid Level 2.2 mmol/L Troponin I 0.94 NG/ML 0.98 NG/ML Direct Bilirubin 0.2 MG/DL Indirect Bilirubin 0.3 MG/DL Imaging Last Impressions Lower Extremity Ultrasound 05/23/17 Signed Impressions: Service Date/Time: Tuesday, May 23, 2017 08:02 - CONCLUSION: Negative for deep venous thrombosis. Buddy aHrrison MD FACR Head CT 05/23/17 Signed Impressions: Service Date/Time: Tuesday, May 23, 2017 03:56 - CONCLUSION: 1. Examination quality is degraded by motion artifact. 2. No definite acute finding is identified. There is a 3 mm punctate area of high density in the left frontal periventricular white matter. This could represent small focus of acute blood products. Suggest attention to this on followup imaging. Wiliam Buck MD Chest X-Ray 05/23/17 Signed Impressions: Service Date/Time: Tuesday, May 23, 2017 00:04 - CONCLUSION: 1. Atelectasis versus consolidation in the left lower lobe. 2. Endotracheal tube tip measures 2.9 cm from the julee. Wiliam Buck MD Aorta CTA 05/23/17 Signed Impressions: Service Date/Time: Tuesday, May 23, 2017 03:58 - CONCLUSION: 1. 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 The dissection extends to the abdominal aorta and terminates in the common iliac arteries bilaterally. The abdominal vessels arise from both the true and false lumens and demonstrate good opacification. Suggest correlating with the patient's prior imaging study which documents the dissection. 2. 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 3. There is stranding of the periaortic fat adjacent to the arch aneurysm. 4. There are small bilateral pleural effusions, left larger than right, with bilateral volume loss and/or airspace consolidation bilaterally. Wiliam Buck MD Objective Remarks GENERAL: Patient is 36 yo s/p PEA arrest SKIN: Warm and dry. HEAD: Normocephalic. EYES: No scleral icterus. No injection or drainage. NECK: Supple, trachea midline. No JVD or lymphadenopathy. CARDIOVASCULAR: Regular rate and rhythm without murmurs, gallops, or rubs. RESPIRATORY: Breath sounds equal bilaterally. No accessory muscle use. GASTROINTESTINAL: Abdomen soft, non-tender, nondistended. MUSCULOSKELETAL: No cyanosis, or edema. Neuro: Sedated, intubated A/P Assessment and Plan Assessment: 36-year-old male with new acute type B dissection and hypertensive emergency. Patient remains critically on high risk for decompensation. Admitted to ICU. Aggressive blood pressure management with goal systolic blood pressure less than 120 and heart rate less than 70. Serial lactate. Close monitoring of urine output. VDRF s/p PEA arrest Acute kidney injury Acute type B dissection Hypertensive emergency Elevated trop likley related to PEA arrest Elevated LFT's Anemia Plan: Neuro: On Diprivan infusion for sedation. Monitor neuro status. Daily sedation vacation. CT brain this morning: There is a 3 mm punctate area of high density in the left frontal periventricular white matter. This could represent small focus of acute blood products. EEG : Mild diffuse encephalopathy, no seizure activity Check MRI brain CV: Monitor HR and BP ,Goal SBP< 120, HR< 70Check 2-D echo, BNP. Echo showed EF 65-70%, no RWMA Monitor trop ( elevated likley 2nd PEA arrest) cards eval CTA chest: . 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 The dissection extends to the abdominal aorta and terminates in the common iliac arteries bilaterally. The abdominal vessels arise from both the true and false lumens and demonstrate good opacification. vascular surgery is following- Dr. Guzman Pulm: Continue with vent suppot keep sat >92% Bronchodilators, ICU vent bundle CXR: Atelectasis vs consolidation LLL : Monitor renal function, electrolytes replacement as needed Cr: 1.84 from 1.54. renal is following- Dr. Flannery GI: Start tube feeds-Glucerna 1.5 with goal rate 50ml/hr Monitor LFT's, check Hep profile, check US abdomen Heme: Daily CMP, CBC ID: Monitor for signs of infections ( Fever, WBC) panculture if spikes fever Endo: SSI if needed for glycemic control SCDs Hold pharmacologic DVT prophylaxis given new acute dissection Doppler US LE negative for DVT CCT 30 mins Abner Elizabeth MD May 23, 2017 11:15
--- NOTE | 2017-05-23 11:23 | RADRPT ---
EXAM DATE/TIME: 05/23/2017 10:22 [facility] COMPARISON: CTA THORACIC ABDOMINAL AORTA W 3D RECON, May 23, 2017, 3:58. INDICATIONS : Short of breath. DOSE: 8.1 mCi Tc99m MAA IV 0.8 mCi Tc99m DTPA aerosol MEDICAL HISTORY : Hypertension. SURGICAL HISTORY : None. ENCOUNTER: Initial ACUITY: 1 day PAIN SCALE: 2/10 LOCATION: Bilateral chest TECHNIQUE: Following five minutes of tidal breathing of DTPA aerosol, planar images of the lungs were performed in eight projections. The patient was then injected with MAA, and eight-view perfusion scan was perf ormed. FINDINGS: There is a homogeneous pattern of aerosol delivery to the periphery of both lungs. No focal ventilat ory defects are seen. The perfusion is better than the ventilation. The perfusion lung scan demonstrates a homogenous misbah court of uptake in both lungs. No segmental or subsegmental defects are seen. CONCLUSION: Low probability of pulmonary embolism. Buddy Harrison MD FACR on May 23, 2017 at 11:21 Board Certified Radiologist. This report was verified electronically.
[2017-05-23] MEDS: NS IV PRN ×6 (13:00→21:30)
[2017-05-23] MEDS: LABETALOL IV PRN ×6 (13:00→21:30)
--- NOTE | 2017-05-23 13:37 | EKG ---
Date Performed: 05/23/2017 Time Performed: 02:09:38 PTAGE: 36 years EKG: Sinus rhythm Inferior ST-T changes are nonspecific Borderline ECG NO PREVIOUS TRACING DOCTOR: Trent Llanos Interpretating Date/Time 05/23/2017 13:35:00
--- NOTE | 2017-05-23 13:39 | HHI.NPPN ---
Subjective History of Present Illness 36 year old with Aortic dissection ARF Interval History Coded last night brief resuscitation was intubated Objective Data Data 05/23/17 05/24/17 19:00 07:00 Intake Total 650 ml Balance 650 ml IV Total 650 ml Vital Signs Date Time Temp Pulse Resp B/P (MAP) Pulse Ox O2 Delivery O2 Flow Rate FiO2 05/23/17 13:05 71 135/80 05/23/17 11:32 99 40 05/23/17 11:00 76 05/23/17 11:00 40 05/23/17 11:00 99 Mechanical Ventilator 40 05/23/17 11:00 98.7 76 16 132/83 (99) 94 143/84 (103) 05/23/17 10:20 100 40 05/23/17 08:00 99 Mechanical Ventilator 50 05/23/17 08:00 50 05/23/17 07:31 99 50 05/23/17 07:00 78 05/23/17 07:00 97.2 77 16 122/71 (88) 99 141/91 (108) 05/23/17 06:50 83 158/84 05/23/17 04:45 98 50 05/23/17 04:25 81 111/59 05/23/17 03:00 98.5 80 16 115/76 (89) 99 05/23/17 03:00 99 Mechanical Ventilator 100 05/23/17 03:00 100 05/23/17 03:00 80 05/23/17 01:58 99 50 05/23/17 00:20 100 100 05/23/17 00:15 100 05/23/17 00:00 100 05/22/17 23:40 15.00 100 05/22/17 23:32 80 105/60 05/22/17 23:13 89 130/65 05/22/17 23:00 97.6 80 22 97/68 (78) 95 05/22/17 23:00 79 05/22/17 23:00 95 Bi-Pap 35 05/22/17 20:10 97 BiPAP 35 05/22/17 20:10 96 05/22/17 19:00 95 Bi-Pap 35 05/22/17 19:00 98.2 82 30 109/45 (66) 95 05/22/17 19:00 84 05/22/17 17:39 99 35 05/22/17 15:13 98.8 89 20 123/70 (87) 95 05/22/17 15:12 92 Room Air 05/22/17 15:00 87 -: 05/23/17 0100 05/23/17 0530 Microbiology 05/23/17 Aerobic Blood Culture, Received Pending 05/23/17 Anaerobic Blood Culture, Received Pending 05/23/17 Gram Stain - Final, Resulted 05/23/17 Sputum Culture, Resulted Pending Physical Exam General Appearance: Well Developed, No Acute Distress Eyes Eye Exam: Pupils Equal Ears & Nose Ears & Nose Exam: Tympanic Membranes Normal Throat Throat Exam: Oral Mucosa [place] & Moist Neck Neck Exam: Neck Supple Pulmonary Resp Exam: Clear Bilaterally Cardiology CV Exam: Regular, Normal Sinus Rhythm Gastrointestinal/Abdomen GI Exam: Soft, Non-Tender Genitourinary Exam: Clear Urine Integumentary Skin Exam: Intact Extremeties Extremities Exam: No Edema Neurologic Neuro Exam: Sedated Assessment/Plan Problem List: (1) Acute renal failure ICD Codes: N17.9 - Acute kidney failure, unspecified Plan: He has large dissection of aorta continue to monitor he is passing urine creatinine increase he did receive IV contrast repeat CTA on Tuesday done Dissection up to Common Iliac arteries seen with true and false lumen perfused Cr 1.8 follow Monitor intake and output Control blood pressure Esmolol drip (2) Dissection of aorta, thoracoabdominal ICD Codes: I71.03 - Dissection of thoracoabdominal aorta Plan: He has coded and now intubated vascular is following Renal arteries remains perfused Roz Flannery MD May 23, 2017 13:39
--- NOTE | 2017-05-23 15:31 | MB ---
cc: Guillermo Bhakta MD DATE OF CONSULT: REASON FOR CONSULTATION: Abnormal troponin levels. HISTORY OF PRESENT ILLNESS: History is obtained from electronic medical records. The patient is currently intubated and sedated. He is a 36-year-old -[place] male with a history of hypertension, sleep apnea, who was admitted with acute onset chest pain and found to have type B aortic dissection. Early this morning he apparently developed progressively worsening hypoxemia and subsequent bradycardia and pulseless electrical activity arrest. PAST MEDICAL HISTORY: As above. PAST SURGICAL HISTORY: Inguinal hernia repair. CURRENT CARDIAC MEDICATIONS: 1. Metoprolol 25 mg p.o. q. 6 hours 2. Atorvastatin 40 mg p.o. at bedtime. 3. Esmolol drip 4. Labetalol drip FAMILY HISTORY/SOCIAL HISTORY/REVIEW OF SYSTEMS: Currently unobtainable. PHYSICAL EXAMINATION: VITAL SIGNS: Blood pressure 135/80 with a pulse of 70, respirations 16. GENERAL: He is a well-developed, well-nourished -[place] male, currently intubated and sedated. HEENT: Jugular venous pressure is hard to assess. Carotid pulses are 2+ bilaterally and without bruits. CHEST: Reveals clear lung [place] anteriorly. CARDIAC: He has a regular rhythm and rate without S3, S4 or murmur. ABDOMEN: He has a soft abdomen. Bowel sounds are present. There is no definite hepatosplenomegaly. EXTREMITIES: Reveals no clubbing, cyanosis or edema. LABORATORY DATA: Includes WBC 9.4, hemoglobin 8.5, platelets 190, potassium 3.5, BUN 24, creatinine 1.84, AST 121, ALT 289, troponin 1.06. IMAGING STUDIES: Chest x-ray shows atelectasis versus consolidation in the left lower lobe. EKG Shows sinus rhythm, nonspecific inferior ST and T-wave abnormalities. IMPRESSION: Minimally abnormal troponin levels in this 36-year-old -[place] male with a history of hypertension, sleep apnea, recently diagnosed type B aortic dissection. I suspect the elevations in troponin levels are mostly due to renal insufficiency as well as his pulseless electrical activity arrest last night which was potentially precipitated by hypoxemia. Left ventricular function by echo three days ago was normal with no severe valvular abnormalities. Reportedly, a repeat bedside echo last night showed no pericardial effusion with unchanged normal left ventricular function. EKG shows nonspecific changes. There is no definite evidence for congestive heart failure or significant tachyarrhythmias. His blood pressure appears to be under adequate control on a multi-drug regimen. RECOMMENDATIONS: 1. Continue current medical therapy of his aortic dissection. 2. Consider a stress test as an outpatient. MD JOSE Barksdale/ANALY/cm , 02:39 PM , 02:59 PM MTDShay
[2017-05-23] MEDS ORDERED: GADODIAMIDE PF 287 MG/ML 5 ML VIAL (for RAD MRI) IVCONTRAST ONE (16:25)
--- NOTE | 2017-05-23 16:43 | ECHRPT ---
Indication: assess chf CONCLUSIONS Normal left ventricular size. Mild concentric left ventricular hypertrophy. The left ventricular systolic function is normal with an estimated ejection fraction in the range of 60-65%. No regional wall motion abnormalities are present. Trace mitral valve regurgitation. There is trace tricuspid valve regurgitation. BP: / HR: Rhythm: MEASUREMENTS (Male / Female) Normal Values Technical Quality:Technically difficult study 2D ECHO LV Diastolic Diameter PLAX 4.7 cm 4.2 - 5.9 / 3.9 - 5.3 cm LV Systolic Diameter PLAX 3.9 cm IVS Diastolic Thickness 1.9 cm 0.6 - 1.0 / 0.6 - 0.9 cm LVPW Diastolic Thickness 1.7 cm 0.6 - 1.0 / 0.6 - 0.9 cm LV Relative Wall Thickness 0.8 RV Internal Dim ED PLAX 3.3 cm FINDINGS LEFT VENTRICLE Normal left ventricular size. Mild concentric left ventricular hypertrophy. The left ventricular systolic function is normal with an estimated ejection fraction in the range of 60-65%. No regional wall motion abnormalities are present. RIGHT VENTRICLE Normal right ventricular size and systolic function. LEFT ATRIUM The left atrial size is normal. RIGHT ATRIUM The right atrial size is normal. ATRIAL SEPTUM Normal atrial septal thickness without atrial level shunting by limited color doppler interrogation. AORTA The aortic root and proximal ascending aorta are normal in size on limited imaging. MITRAL VALVE Structurally normal mitral valve. Trace mitral valve regurgitation. AORTIC VALVE Trileaflet aortic valve. No aortic valve regurgitation. TRICUSPID VALVE Structurally normal tricuspid valve. There is trace tricuspid valve regurgitation. PULMONARY VALVE The pulmonary valve is not well visualized. VESSELS The inferior vena cava is normal in size. PERICARDIUM No pericardial effusion. Guillermo Bhakta MD (Electronically Signed) Final Date:23 May 2017 16:41
--- NOTE | 2017-05-23 17:02 | RADRPT ---
EXAM DATE/TIME: 05/23/2017 15:59 [facility] COMPARISON: CT BRAIN W/O CONTRAST, May 23, 2017, 3:56. INDICATIONS : CVA. CONTRAST: 27 cc Omniscan (gadodiamide) IV MEDICAL HISTORY : Hypertension. Renal failure, acute. SURGICAL HISTORY : Hernia repair. ENCOUNTER: Initial ACUITY: 1 day PAIN SCORE: Nonresponsive. LOCATION: Bilateral cranial TECHNIQUE: Multiplanar, multisequence MRI of the brain was performed both prior to and following the administrat ion of paramagnetic contrast. FINDINGS: There are multiple punctate scattered areas of restricted diffusion within the periventricular white matter of both frontal lobes. There are associated areas of signal dropout on the ADC map. No hemorrh age observe. No mass or abnormal enhancement. Ventricles are normal in size and shape. Normal flow vo ids involving the major intracranial vessels. Mucosal thickening throughout all the sinuses bilateral ly.. CONCLUSION: 1. 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 2. No hemorrhage observe. 3. Pansinus disease. Rudy Cervantes Jr., MD on May 23, 2017 at 16:56 Board Certified Radiologist. This report was verified electronically.
--- NOTE | 2017-05-23 19:31 | RADRPT ---
EXAM DATE/TIME: 05/23/2017 17:22 [facility] COMPARISON: No previous studies available for comparison. INDICATIONS : Elevated labs. MEDICAL HISTORY : Back pain. Fatigue. SURGICAL HISTORY : None. ENCOUNTER: Initial ACUITY: 1 day PAIN SCORE: Nonresponsive. LOCATION: Abdomen. MEASUREMENTS: LIVER: 12.6 cm length COMMON DUCT: 6 mm RIGHT KIDNEY: 11.8 x 5.0 x 5.9 cm LEFT KIDNEY: 12.7 x 3.2 x 6.6 cm SPLEEN: 9.8 cm length AORTA: 2.6cm maximal FINDINGS: LIVER: Normal echotexture without focal lesion or ductal dilatation. Hepatopedal flow seen in the portal ve in. COMMON DUCT: No intraluminal mass or stone visualized. GALLBLADDER: The gallbladder is contracted. The gallbladder wall is diffusely thickened measuring up to 1 cm. Th ere is pericholecystic fluid. No echogenic or shadowing gallstones seen. PANCREAS: The visualized portions are within normal limits. RIGHT KIDNEY: No hydronephrosis, stone or mass. LEFT KIDNEY: No hydronephrosis, stone or mass. SPLEEN: No focal lesion. AORTA: Non aneurysmal. IVC: Within normal limits. CONCLUSION: 1. Gall bladder wall thickening and possible pericholecystic fluid without evidence of gallstones. M ay consider perform hepatic biliary tract scan to evaluate for acalculous cholecystitis. 2. No focal abnormality seen within the liver. Rudy Pollock MD on May 23, 2017 at 19:26 Board Certified Radiologist. This report was verified electronically.
[2017-05-23] MEDS: ATORVASTATIN 40 MG TAB PO SCH (21:27)
[2017-05-23] MEDS: POTASSIUM CHLOR 40 MEQ PREMIX 100 ML IV PRN (21:29)
[2017-05-24] VITALS (16 sets, daily range): BP systolic 105–137; BP diastolic 50–74; PULSE 78–98; RESP 16–20; TEMP 99.2–100.5; O2SAT 91–98
[2017-05-24] MEDS: ESMOLOL DRIP INJ PREMIX 250 ML IV PRN ×2 (00:41→07:25)
[2017-05-24] MEDS: LABETALOL IV PRN ×4 (00:42→08:37)
[2017-05-24] MEDS: NS IV PRN ×4 (00:42→08:37)
[2017-05-24] MEDS: PIPERACIL-TAZO 4.5 GM PREMIX 100 ML IV SCH ×4 (00:45→18:00)
[2017-05-24] MEDS: PROPOFOL 1000 MG/100 ML INJ 100 ML IV PRN ×6 (01:01→22:45)
[2017-05-24] MEDS: CHLORHEXIDINE GLUCONATE 2 % 1 PACK (2 CLOTHS) TOP SCH (04:00)
[2017-05-24 05:20] LABS: AUTOMATED NEUTROPHIL # 6.3 TH/MM3 (1.8-7.7); BASOPHIL % 0.4 % (0.0-2.0); EOSINOPHIL # 0.3 TH/MM3 (0-0.4); EOSINOPHIL % 3.3 % (0.0-4.0); HEMOGLOBIN 8.5 GM/DL (13.0-17.0); LYMPH % 15.3 % (9.0-44.0); LYMPHOCYTE # 1.4 TH/MM3 (1.0-4.8); MEAN CELL VOLUME 79.1 FL (80.0-100.0); MEAN CORPUSCULAR HEMOGLOBIN 26.8 PG (27.0-34.0); MEAN CORPUSCULAR HGB CONC 33.8 % (32.0-36.0); MEAN PLATELET VOLUME 7.6 FL (7.0-11.0); MONOCYTE # 1.2 TH/MM3 (0-0.9); PLATELET COUNT 243 TH/MM3 (150-450); RED BLOOD COUNT 3.16 MIL/MM3 (4.50-5.90); RED CELL DISTRIBUTION WIDTH 15.7 % (11.6-17.2); WHITE BLOOD COUNT 9.3 TH/MM3 (4.0-11.0)
[2017-05-24 05:52] LABS: ALBUMIN 2.5 GM/DL (3.4-5.0); ALKALINE PHOSPHATASE 64 U/L (45-117); ALT (GPT) 221 U/L (12-78); AST (GOT) 78 U/L (15-37); BICARBONATE 23.9 MEQ/L (21.0-32.0); BLOOD UREA NITROGEN 36 MG/DL (7-18); CALCIUM 8.2 MG/DL (8.5-10.1); CHLORIDE 103 MEQ/L (98-107); CREATININE 3.18 MG/DL (0.60-1.30); GLOMERULAR FILTRATION RATE 27 ML/MIN (>89); GLUCOSE,RANDOM 86 MG/DL (74-106); SODIUM (NA) 138 MEQ/L (136-145); TOTAL BILIRUBIN ADULT 0.6 MG/DL (0.2-1.0); TOTAL PROTEIN 6.1 GM/DL (6.4-8.2)
[2017-05-24] MEDS: METOPROLOL TARTRATE 25 MG TAB PO SCH ×4 (06:13→20:21)
[2017-05-24] MEDS: RESP: ALBUTEROL 2.5 MG/IPRATROPIUM 0.5 MG NEB (PRN) INH (08:05)
--- NOTE | 2017-05-24 08:19 | PD.CARD.PN ---
Subjective Subjective Remarks Intubated. Sedated. Objective Medications Item Value Date Time Metoprolol 25 mg 05/22/17 1330 Tartrate Q6HR/PO 05/24/17 0613 (Lopressor) Atorvastatin 40 mg 05/19/17 2100 Calcium HS/PO 05/23/177 (Lipitor) Esmolol HCl/ 250 ml @ 39.9 mls/hr 05/19/17 2100 Sodium Chloride TITRATE PRN/IV 05/24/17 0725 Metoprolol 5 mg 05/19/17 2030 Tartrate Q1H PRN/IV PUSH 05/22/17 1716 (Lopressor Inj) Labetalol HCl 20 mg 05/19/17 2030 (Trandate Inj) Q5M PRN/IV PUSH 05/22/17 1139 Hydralazine HCl 10 mg 05/19/172029 (Apresoline Inj) Q30M PRN/IV PUSH 05/22/17 0919 Potassium Chloride 100 ml @ 50 mls/hr 05/19/17 2030 Labetalol HCl 500 250 ml @ 60 mls/hr 05/19/17 1915 mg/Sodium Chloride TITRATE PRN/IV 05/24/17 0042 Current Medications Medications (Trade) Dose Ordered Sig/Melissa Route Start Time Stop Time Status Last Admin Labetalol HCl 500 mg/Sodium Chloride 250 ml @ 60 mls/hr TITRATE PRN IV 05/19/17 19:15 05/24/17 00:42 (Pepcid) 20 mg BID PO 05/19/17 21:00 05/22/17 08:59 (Lipitor) 40 mg HS PO 05/19/17 21:00 05/23/17 21:27 (Roxicodone) 5 mg Q4H PRN PO 05/19/17 19:30 (Dilaudid) 2 mg Q4H PRN PO 05/19/17 19:30 (Morphine Inj) 2 mg Q1H PRN IV 05/19/17 20:00 05/20/17 23:52 (Heparin Inj) 5,000 units Q8H SQ 05/19/17 20:00 Future Hold 05/23/17 04:00 (Kina-Colace) 1 tab BID PO 05/19/17 21:00 05/23/17 21:27 (Milk Of Magnesia Liq) 30 ml Q12H PRN PO 05/19/17 19:30 (Senokot) 17.2 mg Q12H PRN PO 05/19/17 19:30 (Dulcolax Supp) 10 mg DAILY PRN RECTAL 05/19/17 19:30 (Lactulose Liq) 30 ml DAILY PRN PO 05/19/17 19:30 (Trandate Inj) 20 mg Q5M PRN IV PUSH 05/19/17 20:30 05/22/17 11:39 (Apresoline Inj) 10 mg Q30M PRN IV PUSH 05/19/17 20:30 05/22/17 09:19 (Lopressor Inj) 5 mg Q1H PRN IV PUSH 05/19/17 20:30 05/22/17 17:16 Potassium Chloride 100 ml @ 50 mls/hr Q2H PRN IV 05/19/17 20:30 Potassium Chloride 100 ml @ 50 mls/hr Q2H PRN IV 05/19/17 20:30 05/20/17 04:35 (K-Lyte Cl Eff) 50 meq UNSCH PRN PO 05/19/17 20:30 Potassium Chloride 100 ml @ 25 mls/hr UNSCH PRN IV 05/19/17 20:30 05/23/17 21:29 Potassium Chloride 100 ml @ 50 mls/hr Q2H PRN IV 05/19/17 20:30 05/22/17 11:02 Magnesium Sulfate 4 gm/Sodium Chloride 100 ml @ 50 mls/hr UNSCH PRN IV 05/19/17 20:30 (Mag-Ox) 800 mg UNSCH PRN PO 05/19/17 20:30 Magnesium Sulfate 2 gm/Sodium Chloride 100 ml @ 50 mls/hr UNSCH PRN IV 05/19/17 20:30 (K-Phos) 2,000 mg Q4H PRN PO 05/19/17 20:30 Sodium Phosphate 30 mmol/Sodium Chloride 250 ml @ 42 mls/hr UNSCH PRN IV 05/19/17 20:30 (K-Phos) 2,000 mg UNSCH PRN PO/TUBE 05/19/17 20:30 Potassium Phosphate 30 mmol/ Sodium Chloride 260 ml @ 42 mls/hr UNSCH PRN IV 05/19/17 20:30 (Pepcid Inj) 20 mg Q12HR IV PUSH 05/19/17 21:00 05/23/17 21:27 (Zofran Inj) 4 mg Q6H PRN IV PUSH 05/19/17 20:30 (Duoneb Neb) 1 ampule Q2HR NEB PRN INH 05/19/17 20:30 05/24/17 08:05 Miscellaneous Information 1 Q361D XX 05/19/17 20:30 05/19/17 20:30 (Chlorhexidine 2% Cloth) 3 pack Taper DAILY@04 TOP 05/20/17 04:00 05/16/18 03:59 05/24/17 04:00 (Chlorhexidine 2% Cloth) 3 pack UNSCH PRN TOP 05/19/17 20:30 Clevidipine 50 ml @ 2 mls/hr TITRATE PRN IV 05/19/17 21:00 Esmolol HCl/ Sodium Chloride 250 ml @ 39.9 mls/hr TITRATE PRN IV 05/19/17 21:00 05/24/17 07:25 (Lopressor) 25 mg Q6HR PO 05/22/17 13:30 05/24/17 06:13 (Peridex 0.12% Liq) 15 ml BID@08,20 MT 05/23/17 08:00 05/23/17 21:28 Propofol 100 ml @ 3.99 mls/hr TITRATE PRN IV 05/23/17 00:45 05/24/17 06:00 Piperacillin Sod/ Tazobactam Sod 100 ml @ 200 mls/hr Q6H IV 05/23/17 06:00 05/24/17 06:13 Vital Signs / I&O Vital Signs Date Time Temp Pulse Resp B/P (MAP) Pulse Ox O2 Delivery O2 Flow Rate FiO2 05/24/17 07:51 98 40 05/24/17 07:25 80 121/59 05/24/17 04:00 98 Mechanical Ventilator 40 05/24/17 04:00 99.5 88 16 107/73 (84) 98 121/56 (77) 05/24/17 04:00 88 05/24/17 04:00 40 05/24/17 03:36 97 40 05/24/17 00:41 78 129/70 05/24/17 00:36 97 40 05/24/17 00:00 40 05/24/17 00:00 98 Mechanical Ventilator 40 05/24/17 00:00 99.5 79 16 98 129/70 (89) 05/24/17 00:00 78 05/23/17 20:00 40 05/23/17 20:00 98 Mechanical Ventilator 40 05/23/17 20:00 98.4 78 16 114/79 (91) 98 134/72 (92) 05/23/17 20:00 78 05/23/17 16:01 99 40 05/23/17 15:10 99 40 05/23/17 15:00 40 05/23/17 15:00 98.6 75 16 98/79 (85) 99 05/23/17 15:00 74 05/23/17 15:00 99 Mechanical Ventilator 40 05/23/17 13:05 71 135/80 05/23/17 11:32 99 40 05/23/17 11:00 76 05/23/17 11:00 40 05/23/17 11:00 99 Mechanical Ventilator 40 05/23/17 11:00 98.7 76 16 132/83 (99) 94 143/84 (103) 05/23/17 10:20 100 40 I/O 05/23/17 05/23/17 05/23/17 05/24/17 05/24/17 05/24/17 06:59 14:59 22:59 06:59 14:59 22:59 Intake Total 1440 ml 650 ml 730 ml 732 ml 350 ml Output Total 600 ml 850 ml 790 ml Balance 840 ml 650 ml -120 ml -58 ml 350 ml Intake Oral 240 ml 0 ml IV Total 1200 ml 650 ml 700 ml 650 ml 350 ml Tube Feeding 82 ml Other 30 ml Output Urine Total 600 ml 850 ml 790 ml Gastric Drainage Total 0 ml # Bowel Movements 0 0 Physical Exam GENERAL: Well developed, well nourished. Intubated. Sedated. HEENT: Jugular venous pressure hard to assess. CHEST: Lungs clear to auscultation anteriorly. CARDIAC: Regular rate and rhythm without S3, S4, or murmur. ABDOMEN: Soft, no hepatosplenomegaly. Bowel sounds present. EXTREMITIES: No clubbing, cyanosis, or edema. Laboratory Laboratory Tests Test 05/23/17 11:50 05/24/17 04:30 Troponin I 1.06 NG/ML White Blood Count 9.3 TH/MM3 Red Blood Count 3.16 MIL/MM3 Hemoglobin 8.5 GM/DL Hematocrit 25.0 % Mean Corpuscular Volume 79.1 FL Mean Corpuscular Hemoglobin 26.8 PG Mean Corpuscular Hemoglobin Concent 33.8 % Red Cell Distribution Width 15.7 % Platelet Count 243 TH/MM3 Mean Platelet Volume 7.6 FL Neutrophils (%) (Auto) 68.0 % Lymphocytes (%) (Auto) 15.3 % Monocytes (%) (Auto) 13.0 % Eosinophils (%) (Auto) 3.3 % Basophils (%) (Auto) 0.4 % Neutrophils # (Auto) 6.3 TH/MM3 Lymphocytes # (Auto) 1.4 TH/MM3 Monocytes # (Auto) 1.2 TH/MM3 Eosinophils # (Auto) 0.3 TH/MM3 Basophils # (Auto) 0.0 TH/MM3 CBC Comment DIFF FINAL Differential Comment Blood Urea Nitrogen 36 MG/DL Creatinine 3.18 MG/DL Random Glucose 86 MG/DL Total Protein 6.1 GM/DL Albumin 2.5 GM/DL Calcium Level 8.2 MG/DL Alkaline Phosphatase 64 U/L Aspartate Amino Transf (AST/SGOT) 78 U/L Alanine Aminotransferase (ALT/SGPT) 221 U/L Total Bilirubin 0.6 MG/DL Sodium Level 138 MEQ/L Potassium Level 3.4 MEQ/L Chloride Level 103 MEQ/L Carbon Dioxide Level 23.9 MEQ/L Anion Gap 11 MEQ/L Estimat Glomerular Filtration Rate 27 ML/MIN Assessment and Plan Problem List: (1) Elevated troponin ICD Codes: R74.8 - Abnormal levels of other serum enzymes Status: Acute Plan: Cardiac status stable. Overall doubt elevated troponin due to ACS, more likely due to renal insufficiency and his PEA arrest, which may have been induced by hypoxia. Repeat echo shows no change in normal left ventricular/ valvular function. REC no new recommendations, will f/u as needed (2) Dissection of aorta, thoracoabdominal ICD Codes: I71.03 - Dissection of thoracoabdominal aorta Status: Acute Plan: Good BP control overall. To continue medical therapy. Code Status full code Guillermo Bhakta MD May 24, 2017 08:19
[2017-05-24] MEDS: FAMOTIDINE 20 MG/2 ML VIAL IV PUSH SCH ×2 (08:31→20:20)
[2017-05-24] MEDS: FAMOTIDINE 20 MG TAB PO SCH ×2 (08:32→20:22)
[2017-05-24] MEDS: CHLORHEXIDINE 0.12% (ORAL KIT) 15 ML CUP MT SCH ×2 (08:32→20:20)
[2017-05-24] MEDS: DOCUSATE SODIUM 50 MG/SENNA 8.6 MG TAB PO SCH ×2 (08:33→20:22)
[2017-05-24] MEDS: hydrALAZINE HCL 20 MG/ML VIAL IV PUSH PRN ×2 (08:34→18:52)
--- NOTE | 2017-05-24 10:08 | MB ---
cc: Alejandro Espinosa MD DATE OF CONSULT: 05/23/2017 HISTORY OF PRESENT ILLNESS: A 36-year-old man admitted on 05/19, was having chest pain during intercourse, never happened before. Transferred to [facility]. Neurologically intact. He is on vacation. He had severe chest pain to the back. 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 Renal is perfused off a false lumen. He was seen by cardiology today, noted to have a history of sleep apnea. He had progressive worsening hypoxia, bradycardia, pulseless electrical activity, and cardiac arrest. He as on metoprolol, atorvastatin, esmolol drip, labetalol. He had some elevated troponin levels. He had a normal EF and no valvular abnormalities by echo. He is on sedatives now, Diprivan, but was taken off for about 30-40 minutes earlier today and did not seem to wake up. I am asked to see him for mental status change. CURRENT MEDICATIONS: He is on the Diprivan, piperacillin, Pepcid, Lipitor, Trandate, p.r.n. medications, and morphine. PHYSICAL EXAMINATION: GENERAL: He is on a ventilator. VITAL SIGNS: Afebrile, 132/83, 76. NECK: There are no carotid bruits. ABDOMEN: He is somewhat obese. HEART: Regular rhythm. Did not detect a murmur. NEUROLOGIC: The pupils are equal. There is no reaction to threat or dolls. He is areflexive. Toes are mute. No ankle clonus. He is, however, on Diprivan and fully sedated. No reaction to nasal stimulus. LABORATORY DATA: White count is 9.4, hematocrit 24, it had been 38 on the 1st, platelet count is normal. Hepatitis screen is pending. Basic metabolic profile, creatinine today 1.84, GFR is 51, AST is 121, ALT 289. They had been normal on the 1st, but have been going up since the 2nd. His troponin level is elevated at 1. Albumin 2.4. Coags normal. AB.37, 40, 30, 38. He had an MRI of his brain, which was just performed now. The report is not out yet but my preliminary report on review of the films, he has got smattering of small infarcts in the white matter bilaterally, likely cardioembolic. No major infarct is noted. I would say there might be some slight hyperintensity of the cortical ribbon bilaterally and on the diffusion image and on the FLAIR images. No hemorrhage is noted. No enhancement is seen. IMPRESSION: I have a little bit of a wary with the MRI findings. There is a little bit of prominence of the cortical ribbon, although it is somewhat of a soft call. 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 Whether he could or needs to be heparinized with the dissection, as certainly that could be a source for stroke, I would have to defer to the med team. I note right now, he is only on subcu heparin. I will say that the interpretation of the CTA today says that the dissection starts distal to the left subclavian artery, which should theoretically spare the more proximal vessels as a source of infarct. I note his echo, just read today, showed a normal ejection fraction, but these infarcts do look like, more than likely, coming from proximal to the carotid bifurcations and likely cardioembolic or close to cardioembolic in etiology. MD KATIE Bridges/FRANKIE , 05:12 PM , 05:45 PM
--- NOTE | 2017-05-24 10:59 | HHI.CCPN ---
Subjective Remarks/Hospital Course 05/19: Is a 36-year-old male with a history of hypertension who is on vacation from the [place] area who did not take his antihypertensives today because he is on vacation, and was having sexual intercourse when he had sudden onset of severe substernal radiating to the back chest pain earlier today. 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 He was emergently transferred to [facility] for further management. I evaluated the patient on arrival to the ICU by EVAC. Patient denies abdominal pain. Still endorses chest pain although this is improving. Patient denies any other symptoms. CT chest abdomen pelvis was reviewed and reviewed with myself and Dr. Guzman and does demonstrate a type B dissection. 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 Initial laboratory evidence demonstrates a lactate of 1.3, creatinine 1.2, normal LFTs. 05/20: On home C Pap. Urine output 30 cc/h currently. Remains on esmolol and labetalol drips. Remains drowsy though arousable. +4.4 L 05/21: Resting comfortably on nasal cannula. Awake and alert currently. Denies any shortness of breath or chest pain currently. 05/22: AAO x3, resting comfortably. 05/23 Patient went into PEA arrest early this morning now sedated with Diprivan and intubated. Off Esmolol drip. 05/24 Patient is sedated with Diprivan and intubated. On Labetolol drip. MRI brain yesterday showed multiple small infracts, no hemorrhage. Objective Vital Signs Date Time Temp Pulse Resp B/P (MAP) Pulse Ox O2 Delivery O2 Flow Rate FiO2 05/24/17 07:51 98 40 05/24/17 07:25 80 121/59 05/24/17 07:00 Mechanical Ventilator 05/24/17 04:00 99.5 16 05/22/17 23:40 15.00 Intake and Output 05/24/17 05/24/17 05/25/17 08:00 16:00 00:00 Intake Total 1082 ml Output Total 790 ml Balance 292 ml Result Diagram: 05/24/17 0430 05/24/17 0430 Other Results Laboratory Tests Test 3/5/18 11:50 05/24/17 04:30 Troponin I 1.06 NG/ML White Blood Count 9.3 TH/MM3 Red Blood Count 3.16 MIL/MM3 Hemoglobin 8.5 GM/DL Hematocrit 25.0 % Mean Corpuscular Volume 79.1 FL Mean Corpuscular Hemoglobin 26.8 PG Mean Corpuscular Hemoglobin Concent 33.8 % Red Cell Distribution Width 15.7 % Platelet Count 243 TH/MM3 Mean Platelet Volume 7.6 FL Neutrophils (%) (Auto) 68.0 % Lymphocytes (%) (Auto) 15.3 % Monocytes (%) (Auto) 13.0 % Eosinophils (%) (Auto) 3.3 % Basophils (%) (Auto) 0.4 % Neutrophils # (Auto) 6.3 TH/MM3 Lymphocytes # (Auto) 1.4 TH/MM3 Monocytes # (Auto) 1.2 TH/MM3 Eosinophils # (Auto) 0.3 TH/MM3 Basophils # (Auto) 0.0 TH/MM3 CBC Comment DIFF FINAL Differential Comment Blood Urea Nitrogen 36 MG/DL Creatinine 3.18 MG/DL Random Glucose 86 MG/DL Total Protein 6.1 GM/DL Albumin 2.5 GM/DL Calcium Level 8.2 MG/DL Alkaline Phosphatase 64 U/L Aspartate Amino Transf (AST/SGOT) 78 U/L Alanine Aminotransferase (ALT/SGPT) 221 U/L Total Bilirubin 0.6 MG/DL Sodium Level 138 MEQ/L Potassium Level 3.4 MEQ/L Chloride Level 103 MEQ/L Carbon Dioxide Level 23.9 MEQ/L Anion Gap 11 MEQ/L Estimat Glomerular Filtration Rate 27 ML/MIN Imaging Last Impressions Lung Scan-V Nuclear Medicine 05/23/17 Signed Impressions: Service Date/Time: Tuesday, May 23, 2017 10:22 - CONCLUSION: Low probability of pulmonary embolism. Buddy Harrison MD FACR Lower Extremity Ultrasound 05/23/17 Signed Impressions: Service Date/Time: Tuesday, May 23, 2017 08:02 - CONCLUSION: Negative for deep venous thrombosis. Buddy Harrison MD FACR Head CT 05/23/17 Signed Impressions: Service Date/Time: Tuesday, May 23, 2017 03:56 - CONCLUSION: 1. Examination quality is degraded by motion artifact. 2. No definite acute finding is identified. There is a 3 mm punctate area of high density in the left frontal periventricular white matter. This could represent small focus of acute blood products. Suggest attention to this on followup imaging. Wiliam Buck MD Chest X-Ray 05/23/17 Signed Impressions: Service Date/Time: Tuesday, May 23, 2017 00:04 - CONCLUSION: 1. Atelectasis versus consolidation in the left lower lobe. 2. Endotracheal tube tip measures 2.9 cm from the julee. Wiliam Buck MD Brain MRI 05/23/17 Signed Impressions: Service Date/Time: Tuesday, May 23, 2017 15:59 - CONCLUSION: 1. 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 2. No hemorrhage observe. 3. Pansinus disease. Rudy Cervantes Jr., MD Aorta CTA 05/23/17 Signed Impressions: Service Date/Time: Tuesday, May 23, 2017 03:58 - CONCLUSION: 1. 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 The dissection extends to the abdominal aorta and terminates in the common iliac arteries bilaterally. The abdominal vessels arise from both the true and false lumens and demonstrate good opacification. Suggest correlating with the patient's prior imaging study which documents the dissection. 2. 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 3. There is stranding of the periaortic fat adjacent to the arch aneurysm. 4. There are small bilateral pleural effusions, left larger than right, with bilateral volume loss and/or airspace consolidation bilaterally. Wiliam Buck MD Abdomen Ultrasound 05/23/17 Signed Impressions: Service Date/Time: Tuesday, May 23, 2017 17:22 - CONCLUSION: 1. Gall bladder wall thickening and possible pericholecystic fluid without evidence of gallstones. May consider perform hepatic biliary tract scan to evaluate for acalculous cholecystitis. 2. No focal abnormality seen within the liver. Rudy Pollock MD Objective Remarks GENERAL: Patient is 36 yo s/p PEA arrest SKIN: Warm and dry. HEAD: Normocephalic. EYES: No scleral icterus. No injection or drainage. NECK: Supple, trachea midline. No JVD or lymphadenopathy. CARDIOVASCULAR: Regular rate and rhythm without murmurs, gallops, or rubs. RESPIRATORY: Breath sounds equal bilaterally. No accessory muscle use. GASTROINTESTINAL: Abdomen soft, non-tender, nondistended. MUSCULOSKELETAL: No cyanosis, or edema. Neuro: Sedated, intubated A/P Assessment and Plan Assessment: 36-year-old male with new acute type B dissection and hypertensive emergency. Patient remains critically on high risk for decompensation. Admitted to ICU. Aggressive blood pressure management with goal systolic blood pressure less than 120 and heart rate less than 70. Serial lactate. Close monitoring of urine output. VDRF s/p PEA arrest Acute kidney injury Acute type B dissection Hypertensive emergency Elevated trop likley related to PEA arrest Elevated LFT's Anemia Plan: Neuro: On Diprivan infusion for sedation. Monitor neuro status. Daily sedation vacation. CT brain: There is a 3 mm punctate area of high density in the left frontal periventricular white matter. This could represent small focus of acute blood products. EEG : Mild diffuse encephalopathy, no seizure activity MRI brain: multiple small infarcts, no hemorrhage. Neuro is following- Dr. Espinosa CV: Increase Lopressor 50mg Q12, add Clonidine 0.1mg Q12- Monitor HR and BP , Goal SBP< 120, HR< 70 Repeat echo 05/23: EF 60-65%, no RWMA Echo showed EF 65-70%, no RWMA Monitor trop ( elevated likely 2nd PEA arrest) cards is following CTA chest: . 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 The dissection extends to the abdominal aorta and terminates in the common iliac arteries bilaterally. The abdominal vessels arise from both the true and false lumens and demonstrate good opacification. vascular surgery is following- Dr. Guzman Pulm: Continue with vent suppot keep sat >92% Bronchodilators, ICU vent bundle SBT daily as kell V/Q scal: low prob PE : Monitor renal function, electrolytes replacement as needed. Avoid nephrotoxins Cr: 3.18 today from1.84 . renal is following- Dr. Flannery US abdomen: No hydronephrosis GI: Change tube feeds-Nepro with goal rate 40ml/hr Monitor LFT's, check Hep profile, US abdomen: Gall bladder wall thickening and possible pericholecystic fluid without evidence of gallstones No evidence of focal abnormalities within liver Place on D5NS@75ml/hr Heme: Daily CMP, CBC ID: Continue with Zosyn, Monitor for signs of infections ( Fever, WBC) follow up on sputum cx Endo: SSI if needed for glycemic control SCDs Hold pharmacologic DVT prophylaxis given new acute dissection Doppler US LE negative for DVT CCT 30 mins Abner Elizabeth MD May 24, 2017 10:59
[2017-05-24] MEDS: cloNIDine HCL 0.1 MG TAB PO SCH ×2 (11:00→20:21)
[2017-05-24 11:48] LABS: ALBUMIN 2.4 GM/DL (3.4-5.0); ALT (GPT) 209 U/L (12-78); AST (GOT) 71 U/L (15-37); BICARBONATE 23.2 MEQ/L (21.0-32.0); BLOOD UREA NITROGEN 40 MG/DL (7-18); CALCIUM 8.3 MG/DL (8.5-10.1); CHLORIDE 106 MEQ/L (98-107); GLOMERULAR FILTRATION RATE 25 ML/MIN (>89); GLUCOSE,RANDOM 88 MG/DL (74-106); SODIUM (NA) 138 MEQ/L (136-145)
[2017-05-24 11:50] LABS: ALKALINE PHOSPHATASE 67 U/L (45-117); TOTAL BILIRUBIN ADULT 0.6 MG/DL (0.2-1.0); TOTAL PROTEIN 6.4 GM/DL (6.4-8.2)
[2017-05-24] MEDS: DEXT 5%-NACL 0.9% 1000 ML INJ 1,000 ML IV SCH (13:42)
[2017-05-24 14:22] LABS: HEPATITIS A AB IGM NEGATIVE (NEGATIVE); HEPATITIS B CORE AB IGM NEGATIVE (NEGATIVE)
[2017-05-24] MEDS ORDERED: ACETAMINOPHEN 325 MG TAB PO PRN (16:45)
--- NOTE | 2017-05-24 18:58 | HHI.NPPN ---
Subjective History of Present Illness 36 year old with Aortic dissection ARF Objective Data Data 05/24/17 05/25/17 19:00 07:00 Intake Total 832 ml Output Total 1000 ml Balance -168 ml IV Total 550 ml Tube Feeding 182 ml Tube Irrigant 100 ml Output Urine Total 1000 ml Vital Signs Date Time Temp Pulse Resp B/P (MAP) Pulse Ox O2 Delivery O2 Flow Rate FiO2 05/24/17 17:19 95 50 05/24/17 16:39 91 40 05/24/17 15:00 100.0 90 20 119/74 (89) 97 125/64 (84) 05/24/17 15:00 93 05/24/17 15:00 97 Mechanical Ventilator 40 05/24/17 14:34 97 40 05/24/17 12:14 94 21 05/24/17 11:50 98 40 05/24/17 11:50 40 05/24/17 11:00 40 05/24/17 11:00 93 05/24/17 11:00 99.2 93 20 137/67 (90) 98 124/68 (86) 05/24/17 11:00 97 Mechanical Ventilator 40 05/24/17 10:43 98 40 05/24/17 07:51 98 40 05/24/17 07:25 80 121/59 05/24/17 07:00 97 Mechanical Ventilator 40 05/24/17 07:00 40 05/24/17 07:00 80 05/24/17 07:00 99.3 82 16 114/65 (81) 97 130/63 (85) 05/24/17 04:00 98 Mechanical Ventilator 40 05/24/17 04:00 99.5 88 16 107/73 (84) 98 121/56 (77) 05/24/17 04:00 88 05/24/17 04:00 40 05/24/17 03:36 97 40 05/24/17 00:41 78 129/70 05/24/17 00:36 97 40 05/24/17 00:00 40 05/24/17 00:00 98 Mechanical Ventilator 40 05/24/17 00:00 99.5 79 16 98 129/70 (89) 05/24/17 00:00 78 05/23/17 20:00 40 05/23/17 20:00 98 Mechanical Ventilator 40 05/23/17 20:00 98.4 78 16 114/79 (91) 98 134/72 (92) 05/23/17 20:00 78 -: 05/24/17 0430 05/24/17 1111 Physical Exam General Appearance: Well Developed, No Acute Distress Eyes Eye Exam: Pupils Equal Ears & Nose Ears & Nose Exam: Tympanic Membranes Normal Throat Throat Exam: Oral Mucosa [place] & Moist Neck Neck Exam: Neck Supple Pulmonary Resp Exam: Clear Bilaterally Cardiology CV Exam: Regular, Normal Sinus Rhythm Gastrointestinal/Abdomen GI Exam: Soft, Non-Tender Genitourinary Exam: Clear Urine Integumentary Skin Exam: Intact Extremeties Extremities Exam: No Edema Neurologic Neuro Exam: Sedated Assessment/Plan Problem List: (1) Acute renal failure ICD Codes: N17.9 - Acute kidney failure, unspecified Plan: He has large dissection of aorta continue to monitor he is passing urine creatinine increase he did receive IV contrast repeat CTA on Tuesday done Dissection up to Common Iliac arteries seen with true and false lumen perfused Cr 3.4 follow k 3.4 replace non oliguric Monitor intake and output Control blood pressure Esmolol drip (2) Dissection of aorta, thoracoabdominal ICD Codes: I71.03 - Dissection of thoracoabdominal aorta Status: Acute Plan: intubated vascular is following Renal arteries remains perfused Roz Flannery MD May 24, 2017 18:58
[2017-05-24] MEDS ORDERED: POTASSIUM CHLOR 20 MEQ PREMIX 100 ML IV ONE (19:00)
[2017-05-24] MEDS: ARTIFICIAL TEARS OPTH SOLN 15 ML BTL EACH EYE SCH (19:00)
--- NOTE | 2017-05-24 19:42 | PD.VS.PN ---
Subjective Subjective/Hospital Course Pt still intubated but was able to MENDIOLA according to RN Good UOP Weaned vent some today Neurology feels likely B hemispheric cardio-based emboli to brain. Objective Vitals/I&O Date Time Temp Pulse Resp B/P (MAP) Pulse Ox O2 Delivery O2 Flow Rate FiO2 05/24/17 17:19 95 50 05/24/17 16:39 91 40 05/24/17 15:00 100.0 90 20 119/74 (89) 97 125/64 (84) 05/24/17 15:00 93 05/24/17 15:00 97 Mechanical Ventilator 40 05/24/17 14:34 97 40 05/24/17 12:14 94 21 05/24/17 11:50 98 40 05/24/17 11:50 40 05/24/17 11:00 40 05/24/17 11:00 93 05/24/17 11:00 99.2 93 20 137/67 (90) 98 124/68 (86) 05/24/17 11:00 97 Mechanical Ventilator 40 05/24/17 10:43 98 40 05/24/17 07:51 98 40 05/24/17 07:25 80 121/59 05/24/17 07:00 97 Mechanical Ventilator 40 05/24/17 07:00 40 05/24/17 07:00 80 05/24/17 07:00 99.3 82 16 114/65 (81) 97 130/63 (85) 05/24/17 04:00 98 Mechanical Ventilator 40 05/24/17 04:00 99.5 88 16 107/73 (84) 98 121/56 (77) 05/24/17 04:00 88 05/24/17 04:00 40 05/24/17 03:36 97 40 05/24/17 00:41 78 129/70 05/24/17 00:36 97 40 05/24/17 00:00 40 05/24/17 00:00 98 Mechanical Ventilator 40 05/24/17 00:00 99.5 79 16 98 129/70 (89) 05/24/17 00:00 78 05/23/17 20:00 40 05/23/17 20:00 98 Mechanical Ventilator 40 05/23/17 20:00 98.4 78 16 114/79 (91) 98 134/72 (92) 05/23/17 20:00 78 05/24/17 05/24/17 05/24/17 07:00 15:00 23:00 Intake Total 732 ml 550 ml 282 ml Output Total 790 ml 1000 ml Balance -58 ml 550 ml -718 ml Physical Exam intubated sedated extremities perfused Laboratory Laboratory Tests Test 05/24/17 04:30 05/24/17 11:11 White Blood Count 9.3 Red Blood Count 3.16 Hemoglobin 8.5 Hematocrit 25.0 Mean Corpuscular Volume 79.1 Mean Corpuscular Hemoglobin 26.8 Mean Corpuscular Hemoglobin Concent 33.8 Red Cell Distribution Width 15.7 Platelet Count 243 Mean Platelet Volume 7.6 Neutrophils (%) (Auto) 68.0 Lymphocytes (%) (Auto) 15.3 Monocytes (%) (Auto) 13.0 Eosinophils (%) (Auto) 3.3 Basophils (%) (Auto) 0.4 Neutrophils # (Auto) 6.3 Lymphocytes # (Auto) 1.4 Monocytes # (Auto) 1.2 Eosinophils # (Auto) 0.3 Basophils # (Auto) 0.0 CBC Comment DIFF FINAL Differential Comment Blood Urea Nitrogen 36 40 Creatinine 3.18 3.40 Random Glucose 86 88 Total Protein 6.1 6.4 Albumin 2.5 2.4 Calcium Level 8.2 8.3 Alkaline Phosphatase 64 67 Aspartate Amino Transf (AST/SGOT) 78 71 Alanine Aminotransferase (ALT/SGPT) 221 209 Total Bilirubin 0.6 0.6 Sodium Level 138 138 Potassium Level 3.4 3.4 Chloride Level 103 106 Carbon Dioxide Level 23.9 23.2 Anion Gap 11 9 Estimat Glomerular Filtration Rate 27 25 Date/Time Source Procedure Growth Status 05/23/17 02:21 Blood Peripheral Aerobic Blood Culture - Preliminary NO GROWTH IN 1 DAY Resulted 05/23/17 02:21 Blood Peripheral Anaerobic Blood Culture - Preliminary NO GROWTH IN 1 DAY Resulted 05/23/17 05:30 Sputum Endotracheal Gram Stain - Final Resulted 05/23/17 05:30 Sputum Culture - Preliminary Staphylococcus Aureus Resulted Imaging Last 48 hours Impressions Lung Scan-VQ Nuclear Medicine 05/23/17 0000 Signed Impressions: Service Date/Time: Tuesday, May 23, 2017 10:22 - CONCLUSION: Low probability of pulmonary embolism. Buddy Harrison MD FACR Lower Extremity Ultrasound 05/23/17 0000 Signed Impressions: Service Date/Time: Tuesday, May 23, 2017 08:02 - CONCLUSION: Negative for deep venous thrombosis. Buddy Harrison MD FACR Head CT 05/23/17 Signed Impressions: Service Date/Time: Tuesday, May 23, 2017 03:56 - CONCLUSION: 1. Examination quality is degraded by motion artifact. 2. No definite acute finding is identified. There is a 3 mm punctate area of high density in the left frontal periventricular white matter. This could represent small focus of acute blood products. Suggest attention to this on followup imaging. Wiliam Buck MD Chest X-Ray 05/23/17 Signed Impressions: Service Date/Time: Tuesday, May 23, 2017 00:04 - CONCLUSION: 1. Atelectasis versus consolidation in the left lower lobe. 2. Endotracheal tube tip measures 2.9 cm from the julee. Wiliam Buck MD Brain MRI 05/23/17 0000 Signed Impressions: Service Date/Time: Tuesday, May 23, 2017 15:59 - CONCLUSION: 1. 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 2. No hemorrhage observe. 3. Pansinus disease. Rudy Cervantes Jr., MD Aorta CTA 05/23/17 Signed Impressions: Service Date/Time: Tuesday, May 23, 2017 03:58 - CONCLUSION: 1. 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 The dissection extends to the abdominal aorta and terminates in the common iliac arteries bilaterally. The abdominal vessels arise from both the true and false lumens and demonstrate good opacification. Suggest correlating with the patient's prior imaging study which documents the dissection. 2. 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 3. There is stranding of the periaortic fat adjacent to the arch aneurysm. 4. There are small bilateral pleural effusions, left larger than right, with bilateral volume loss and/or airspace consolidation bilaterally. Wiliam Buck MD Abdomen Ultrasound 05/23/17 0000 Signed Impressions: Service Date/Time: Tuesday, May 23, 2017 17:22 - CONCLUSION: 1. Gall bladder wall thickening and possible pericholecystic fluid without evidence of gallstones. May consider perform hepatic biliary tract scan to evaluate for acalculous cholecystitis. 2. No focal abnormality seen within the liver. 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 From an aortic standpoint, needs continued aggressive BP control with a goal SBP <120. There is no aortic contraindication to anticoagulation. Will need another CTA in 1m (outpatient) 2. ATN, non-oliguric, likely contrast induced 3. Neuro events - neurology following 4. Remainder of management per ICU team Discussed aortic prognosis and overall clinical picture with the patient's mother at bedside Lobo Guzman MD FACS RPVI refrigeration supervisor [facility] - Heart and Vascular Surgery at [facility] [phone] Lobo Guzman MD May 24, 2017 19:42
[2017-05-24] MEDS: ATORVASTATIN 40 MG TAB PO SCH (20:21)
--- NOTE | 2017-05-24 22:04 | RADRPT ---
EXAM DATE/TIME: 05/24/2017 20:45 [place] COMPARISON: CHEST SINGLE AP, May 23, 2017, 0:04. INDICATIONS : Pneumonia. MEDICAL HISTORY : Hypertension. Renal failure, acute. SURGICAL HISTORY : Hernia repair. ENCOUNTER: Subsequent ACUITY: 2 days PAIN SCORE: Non-responsive. LOCATION: Bilateral chest FINDINGS: Endotracheal tube tip well above the julee. Gastric tube traverses the [id number]. Right internet marketing assistant al jugular catheter tip projects over the mid superior vena cava. No evidence of pneumothorax. Patc hy partially consolidated infiltrates in the retrocardiac left mid and lower lung with air bronchogra ms is similar in appearance to prior examination. The right lung is clear. Both hemidiaphragms elizabeth in delineated. CONCLUSION: 1. Persistent left lower lung infiltrates. 2. Lines and tubes as above. Rudy Pollock MD on May 24, 2017 at 22:02 Board Certified Radiologist. This report was verified electronically.
[2017-05-25] VITALS (14 sets, daily range): BP systolic 110–135; BP diastolic 52–83; PULSE 82–91; RESP 16–22; TEMP 97.9–99.9; O2SAT 95–98
[2017-05-25] MEDS: ARTIFICIAL TEARS OPTH SOLN 15 ML BTL EACH EYE SCH ×7 (00:06→21:02)
[2017-05-25] MEDS: PIPERACIL-TAZO 4.5 GM PREMIX 100 ML IV SCH ×2 (00:06→06:00)
[2017-05-25] MEDS: PROPOFOL 1000 MG/100 ML INJ 100 ML IV PRN ×3 (01:58→07:34)
[2017-05-25] MEDS: DEXT 5%-NACL 0.9% 1000 ML INJ 1,000 ML IV SCH ×2 (01:58→15:29)
[2017-05-25] MEDS ORDERED: RESP: ALBUTEROL 2.5 MG/3 ML NEB (PRN) NEB (03:15)
[2017-05-25] MEDS: hydrALAZINE HCL 20 MG/ML VIAL IV PUSH PRN ×4 (03:51→18:49)
[2017-05-25] MEDS: CHLORHEXIDINE GLUCONATE 2 % 1 PACK (2 CLOTHS) TOP SCH (04:00)
[2017-05-25 04:57] LABS: AUTOMATED NEUTROPHIL # 5.4 TH/MM3 (1.8-7.7); BASOPHIL # 0.1 TH/MM3 (0-0.2); BASOPHIL % 0.6 % (0.0-2.0); EOSINOPHIL # 0.5 TH/MM3 (0-0.4); HEMATOCRIT 24.8 % (39.0-51.0); HEMOGLOBIN 8.5 GM/DL (13.0-17.0); LYMPH % 19.8 % (9.0-44.0); LYMPHOCYTE # 1.9 TH/MM3 (1.0-4.8); MEAN CELL VOLUME 78.9 FL (80.0-100.0); MEAN CORPUSCULAR HEMOGLOBIN 27.2 PG (27.0-34.0); MEAN CORPUSCULAR HGB CONC 34.4 % (32.0-36.0); MEAN PLATELET VOLUME 7.1 FL (7.0-11.0); MONO % 17.8 % (0.0-8.0); MONOCYTE # 1.7 TH/MM3 (0-0.9); NEUT % 56.8 % (16.0-70.0); PLATELET COUNT 267 TH/MM3 (150-450); RED BLOOD COUNT 3.14 MIL/MM3 (4.50-5.90); WHITE BLOOD COUNT 9.6 TH/MM3 (4.0-11.0)
[2017-05-25] MEDS: METOPROLOL TARTRATE 5 MG/5 ML VIAL IV PUSH PRN ×3 (05:01→23:48)
[2017-05-25] MEDS: RESP: ALBUTEROL 2.5 MG/IPRATROPIUM 0.5 MG NEB (SCH) NEB ×6 (05:11→23:31)
[2017-05-25 05:22] LABS: ALBUMIN 2.3 GM/DL (3.4-5.0); AST (GOT) 58 U/L (15-37); BICARBONATE 24.3 MEQ/L (21.0-32.0); BLOOD UREA NITROGEN 44 MG/DL (7-18); CALCIUM 8.3 MG/DL (8.5-10.1); CHLORIDE 106 MEQ/L (98-107); GLOMERULAR FILTRATION RATE 23 ML/MIN (>89); GLUCOSE,RANDOM 81 MG/DL (74-106); SODIUM (NA) 141 MEQ/L (136-145)
[2017-05-25 05:23] LABS: ALT (GPT) 159 U/L (12-78)
[2017-05-25 05:25] LABS: ALKALINE PHOSPHATASE 75 U/L (45-117); TOTAL BILIRUBIN ADULT 0.7 MG/DL (0.2-1.0); TOTAL PROTEIN 6.4 GM/DL (6.4-8.2)
--- NOTE | 2017-05-25 07:24 | PD.VS.PN ---
Subjective Subjective/Hospital Course Pt still intubated but was able to MENDIOLA according to RN Good UOP although cr still increasing, tho rate of incline decreasing bp controlled TF resumed. Objective Vitals/I&O Date Time Temp Pulse Resp B/P (MAP) Pulse Ox O2 Delivery O2 Flow Rate FiO2 05/25/17 04:30 96 142/71 05/25/17 04:00 86 05/25/17 04:00 99.9 87 16 133/76 (95) 97 05/25/17 04:00 97 Mechanical Ventilator 40 05/25/17 04:00 40 05/25/17 03:26 96 40 05/25/17 01:00 40 05/25/17 01:00 97 Mechanical Ventilator 40 05/25/17 00:50 97 40 05/25/17 00:00 97 Mechanical Ventilator 50 05/25/17 00:00 99.7 86 16 123/69 (87) 97 05/25/17 00:00 50 05/25/17 00:00 86 05/24/17 20:31 96 50 05/24/17 20:00 50 05/24/17 20:00 90 05/24/17 20:00 100.5 98 16 125/71 (89) 97 105/50 (68) 05/24/17 20:00 97 Mechanical Ventilator 50 05/24/17 17:19 95 50 05/24/17 16:39 91 40 05/24/17 15:00 100.0 90 20 119/74 (89) 97 125/64 (84) 05/24/17 15:00 93 05/24/17 15:00 97 Mechanical Ventilator 40 05/24/17 14:34 97 40 05/24/17 12:14 94 21 05/24/17 11:50 98 40 05/24/17 11:50 40 05/24/17 11:00 40 05/24/17 11:00 93 05/24/17 11:00 99.2 93 20 137/67 (90) 98 124/68 (86) 05/24/17 11:00 97 Mechanical Ventilator 40 05/24/17 10:43 98 40 05/24/17 07:51 98 40 05/24/17 07:25 80 121/59 05/25/17 05/25/17 05/25/17 07:00 15:00 23:00 Intake Total 1482 ml Output Total 1800 ml Balance -318 ml Physical Exam All extremities warm. No apparent abdominal tenderness, albeit blunted exam from pharmacological sedation Laboratory Laboratory Tests Test 05/24/17 11:11 05/25/17 04:20 Blood Urea Nitrogen 40 44 Creatinine 3.40 3.60 Random Glucose 88 81 Total Protein 6.4 6.4 Albumin 2.4 2.3 Calcium Level 8.3 8.3 Alkaline Phosphatase 67 75 Aspartate Amino Transf (AST/SGOT) 71 58 Alanine Aminotransferase (ALT/SGPT) 209 159 Total Bilirubin 0.6 0.7 Sodium Level 138 141 Potassium Level 3.4 3.1 Chloride Level 106 106 Carbon Dioxide Level 23.2 24.3 Anion Gap 9 11 Estimat Glomerular Filtration Rate 25 23 White Blood Count 9.6 Red Blood Count 3.14 Hemoglobin 8.5 Hematocrit 24.8 Mean Corpuscular Volume 78.9 Mean Corpuscular Hemoglobin 27.2 Mean Corpuscular Hemoglobin Concent 34.4 Red Cell Distribution Width 16.0 Platelet Count 267 Mean Platelet Volume 7.1 Neutrophils (%) (Auto) 56.8 Lymphocytes (%) (Auto) 19.8 Monocytes (%) (Auto) 17.8 Eosinophils (%) (Auto) 5.0 Basophils (%) (Auto) 0.6 Neutrophils # (Auto) 5.4 Lymphocytes # (Auto) 1.9 Monocytes # (Auto) 1.7 Eosinophils # (Auto) 0.5 Basophils # (Auto) 0.1 CBC Comment DIFF FINAL Differential Comment Date/Time Source Procedure Growth Status 05/23/17 02:21 Blood Peripheral Aerobic Blood Culture - Preliminary NO GROWTH IN 1 DAY Resulted 05/23/17 02:21 Blood Peripheral Anaerobic Blood Culture - Preliminary NO GROWTH IN 1 DAY Resulted 05/23/17 05:30 Sputum Endotracheal Gram Stain - Final Resulted 05/23/17 05:30 Sputum Culture - Preliminary Staphylococcus Aureus Resulted Imaging Last 48 hours Impressions Chest X-Ray 05/24/17 0000 Signed Impressions: Service Date/Time: Wednesday, May 24, 2017 20:45 - CONCLUSION: 1. Persistent left lower lung infiltrates. 2. Lines and tubes as above. 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 From an aortic standpoint, needs continued aggressive BP control with a goal SBP <120. There is no aortic contraindication to anticoagulation. Will need another CTA in 1m (outpatient) 2. ATN, non-oliguric, likely contrast induced 3. Neuro events - neurology following 4. Remainder of management per ICU team Lobo Guzman MD FACS RPVI mortgage operations manager [facility] - Heart and Vascular Surgery at [facility] [phone] Lobo Guzman MD May 25, 2017 07:24
[2017-05-25] MEDS: CHLORHEXIDINE 0.12% (ORAL KIT) 15 ML CUP MT SCH ×2 (07:34→21:03)
--- NOTE | 2017-05-25 07:53 | HHI.PR ---
Subjective Remarks acc to nurse yest followed commands and moveda ll 4 ext by report Objective Vital Signs Date Time Temp Pulse Resp B/P (MAP) Pulse Ox O2 Delivery O2 Flow Rate FiO2 05/25/17 07:00 95 Mechanical Ventilator 40 05/25/17 04:30 96 142/71 05/25/17 04:00 86 05/25/17 04:00 99.9 87 16 133/76 (95) 97 05/25/17 04:00 97 Mechanical Ventilator 40 05/25/17 04:00 40 05/25/17 03:26 96 40 05/25/17 01:00 40 05/25/17 01:00 97 Mechanical Ventilator 40 05/25/17 00:50 97 40 05/25/17 00:00 97 Mechanical Ventilator 50 05/25/17 00:00 99.7 86 16 123/69 (87) 97 05/25/17 00:00 50 05/25/17 00:00 86 05/24/17 20:31 96 50 05/24/17 20:00 50 05/24/17 20:00 90 05/24/17 20:00 100.5 98 16 125/71 (89) 97 105/50 (68) 05/24/17 20:00 97 Mechanical Ventilator 50 05/24/17 17:19 95 50 05/24/17 16:39 91 40 05/24/17 15:00 100.0 90 20 119/74 (89) 97 125/64 (84) 05/24/17 15:00 93 05/24/17 15:00 97 Mechanical Ventilator 40 05/24/17 14:34 97 40 05/24/17 12:14 94 21 05/24/17 11:50 98 40 05/24/17 11:50 40 05/24/17 11:00 40 05/24/17 11:00 93 05/24/17 11:00 99.2 93 20 137/67 (90) 98 124/68 (86) 05/24/17 11:00 97 Mechanical Ventilator 40 05/24/17 10:43 98 40 I/O 05/24/17 05/24/17 05/24/17 05/25/17 05/25/17 05/25/17 07:00 15:00 23:00 07:00 15:00 23:00 Intake Total 732 ml 550 ml 682 ml 1482 ml Output Total 790 ml 1000 ml 1800 ml Balance -58 ml 550 ml -318 ml -318 ml Intake Oral 0 ml 0 ml IV Total 650 ml 550 ml 400 ml 1482 ml Tube Feeding 82 ml 182 ml Tube Irrigant 100 ml Output Urine Total 790 ml 1000 ml 1650 ml Gastric Drainage Total 150 ml # Bowel Movements 0 1 Result Diagram: 05/25/17 0420 05/25/17 042 Other Results sedated now fully on dip pupil = toes mute Assessment and Plan Assessment and Plan imp apparently doing well neurowise by report bilat cva likely from cardiac arrest dissection mi? eeg neg check labs will follow ? precedex? Alejandro Espinosa MD May 25, 2017 07:53
[2017-05-25] MEDS: FAMOTIDINE 20 MG TAB PO SCH ×2 (09:00→21:00)
[2017-05-25] MEDS: DOCUSATE SODIUM 50 MG/SENNA 8.6 MG TAB PO SCH ×2 (09:00→21:01)
[2017-05-25] MEDS: cloNIDine HCL 0.1 MG TAB PO SCH ×2 (09:09→21:01)
[2017-05-25] MEDS: FAMOTIDINE 20 MG/2 ML VIAL IV PUSH SCH ×2 (09:09→21:00)
[2017-05-25] MEDS: METOPROLOL TARTRATE 25 MG TAB PO SCH ×2 (09:09→21:01)
[2017-05-25 10:02] LABS: FREE T4 0.8 NG/DL (0.76-1.46)
--- NOTE | 2017-05-25 10:54 | HHI.CCPN ---
Subjective Remarks/Hospital Course 05/19: Is a 36-year-old male with a history of hypertension who is on vacation from the [place] area who did not take his antihypertensives today because he is on vacation, and was having sexual intercourse when he had sudden onset of severe substernal radiating to the back chest pain earlier today. 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 He was emergently transferred to [facility] for further management. I evaluated the patient on arrival to the ICU by EVAC. Patient denies abdominal pain. Still endorses chest pain although this is improving. Patient denies any other symptoms. CT chest abdomen pelvis was reviewed and reviewed with myself and Dr. Guzman and does demonstrate a type B dissection. 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 Initial laboratory evidence demonstrates a lactate of 1.3, creatinine 1.2, normal LFTs. 05/20: On home C Pap. Urine output 30 cc/h currently. Remains on esmolol and labetalol drips. Remains drowsy though arousable. +4.4 L 05/21: Resting comfortably on nasal cannula. Awake and alert currently. Denies any shortness of breath or chest pain currently. 05/22: AAO x3, resting comfortably. 05/23 Patient went into PEA arrest early this morning now sedated with Diprivan and intubated. Off Esmolol drip. 05/24 Patient is sedated with Diprivan and intubated. On Labetolol drip. MRI brain yesterday showed multiple small infracts, no hemorrhage. 05/25 Patient remains intubated and sedated. T: 100.5 last night. Renal function is worsening with Cr: 3.6 from 3.4 and UOP: 2650ml in 24 hrs. Objective Vital Signs Date Time Temp Pulse Resp B/P (MAP) Pulse Ox O2 Delivery O2 Flow Rate FiO2 05/25/17 07:57 97 40 05/25/17 07:00 99.5 88 16 123/52 (75) 05/25/17 07:00 Mechanical Ventilator 05/22/17 23:40 15.00 Intake and Output 05/25/17 05/25/17 05/26/17 08:00 16:00 00:00 Intake Total 1482 ml Output Total 1800 ml Balance -318 ml Result Diagram: 05/25/17 0420 05/25/17 0420 Other Results Laboratory Tests Test 05/24/17 11:11 05/25/17 04:20 05/25/17 08:30 Blood Urea Nitrogen 40 MG/DL 44 MG/DL Creatinine 3.40 MG/DL 3.60 MG/DL Random Glucose 88 MG/DL 81 MG/DL Total Protein 6.4 GM/DL 6.4 GM/DL Albumin 2.4 GM/DL 2.3 GM/DL Calcium Level 8.3 MG/DL 8.3 MG/DL Alkaline Phosphatase 67 U/L 75 U/L Aspartate Amino Transf (AST/SGOT) 71 U/L 58 U/L Alanine Aminotransferase (ALT/SGPT) 209 U/L 159 U/L Total Bilirubin 0.6 MG/DL 0.7 MG/DL Sodium Level 138 MEQ/L 141 MEQ/L Potassium Level 3.4 MEQ/L 3.1 MEQ/L Chloride Level 106 MEQ/L 106 MEQ/L Carbon Dioxide Level 23.2 MEQ/L 24.3 MEQ/L Anion Gap 9 MEQ/L 11 MEQ/L Estimat Glomerular Filtration Rate 25 ML/MIN 23 ML/MIN White Blood Count 9.6 TH/MM3 Red Blood Count 3.14 MIL/MM3 Hemoglobin 8.5 GM/DL Hematocrit 24.8 % Mean Corpuscular Volume 78.9 FL Mean Corpuscular Hemoglobin 27.2 PG Mean Corpuscular Hemoglobin Concent 34.4 % Red Cell Distribution Width 16.0 % Platelet Count 267 TH/MM3 Mean Platelet Volume 7.1 FL Neutrophils (%) (Auto) 56.8 % Lymphocytes (%) (Auto) 19.8 % Monocytes (%) (Auto) 17.8 % Eosinophils (%) (Auto) 5.0 % Basophils (%) (Auto) 0.6 % Neutrophils # (Auto) 5.4 TH/MM3 Lymphocytes # (Auto) 1.9 TH/MM3 Monocytes # (Auto) 1.7 TH/MM3 Eosinophils # (Auto) 0.5 TH/MM3 Basophils # (Auto) 0.1 TH/MM3 CBC Comment DIFF FINAL Differential Comment Vitamin B12 Level 474 PG/ML Free Thyroxine 0.80 NG/DL Thyroid Stimulating Hormone 3rd Gen 2.300 uIU/ML Imaging Last Impressions Chest X-Ray 3/6/18 0000 Signed Impressions: Service Date/Time: Wednesday, May 24, 2017 20:45 - CONCLUSION: 1. Persistent left lower lung infiltrates. 2. Lines and tubes as above. Rudy Pollock MD Lung Scan-VQ Nuclear Medicine 05/23/17 Signed Impressions: Service Date/Time: Tuesday, May 23, 2017 10:22 - CONCLUSION: Low probability of pulmonary embolism. Buddy Harrison MD FACR Lower Extremity Ultrasound 05/23/17 Signed Impressions: Service Date/Time: Tuesday, May 23, 2017 08:02 - CONCLUSION: Negative for deep venous thrombosis. Buddy Harrison MD FACR Head CT 05/23/17 Signed Impressions: Service Date/Time: Tuesday, May 23, 2017 03:56 - CONCLUSION: 1. Examination quality is degraded by motion artifact. 2. No definite acute finding is identified. There is a 3 mm punctate area of high density in the left frontal periventricular white matter. This could represent small focus of acute blood products. Suggest attention to this on followup imaging. Wiliam Buck MD Brain MRI 05/23/17 Signed Impressions: Service Date/Time: Tuesday, May 23, 2017 15:59 - CONCLUSION: 1. 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 2. No hemorrhage observe. 3. Pansinus disease. Rudy Cervantes Jr., MD Aorta CTA 05/23/17 Signed Impressions: Service Date/Time: Tuesday, May 23, 2017 03:58 - CONCLUSION: 1. 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 The dissection extends to the abdominal aorta and terminates in the common iliac arteries bilaterally. The abdominal vessels arise from both the true and false lumens and demonstrate good opacification. Suggest correlating with the patient's prior imaging study which documents the dissection. 2. 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 3. There is stranding of the periaortic fat adjacent to the arch aneurysm. 4. There are small bilateral pleural effusions, left larger than right, with bilateral volume loss and/or airspace consolidation bilaterally. Wiliam Buck MD Abdomen Ultrasound 05/23/17 Signed Impressions: Service Date/Time: Tuesday, May 23, 2017 17:22 - CONCLUSION: 1. Gall bladder wall thickening and possible pericholecystic fluid without evidence of gallstones. May consider perform hepatic biliary tract scan to evaluate for acalculous cholecystitis. 2. No focal abnormality seen within the liver. Rudy Pollock MD Objective Remarks GENERAL: Patient is 36 yo s/p PEA arrest SKIN: Warm and dry. HEAD: Normocephalic. EYES: No scleral icterus. No injection or drainage. NECK: Supple, trachea midline. No JVD or lymphadenopathy. CARDIOVASCULAR: Regular rate and rhythm without murmurs, gallops, or rubs. RESPIRATORY: Breath sounds equal bilaterally. No accessory muscle use. GASTROINTESTINAL: Abdomen soft, non-tender, nondistended. MUSCULOSKELETAL: No cyanosis, or edema. Neuro: Sedated, intubated A/P Assessment and Plan VDRF s/p PEA arrest Acute kidney injury Acute type B dissection Hypertensive emergency Elevated trop likley related to PEA arrest Elevated LFT's Anemia Plan: Neuro: On Diprivan infusion for sedation. Monitor neuro status. Daily sedation vacation. CT brain: There is a 3 mm punctate area of high density in the left frontal periventricular white matter. This could represent small focus of acute blood products. EEG : Mild diffuse encephalopathy, no seizure activity MRI brain: multiple small infarcts, no hemorrhage. Neuro is following- Dr. Espinosa CV: On Lopressor 50mg Q12, Clonidine 0.1mg Q12- Monitor HR and BP ,Goal SBP< 120, HR< 70 Repeat echo 05/23: EF 60-65%, no RWMA Echo showed EF 65-70%, no RWMA Monitor trop ( elevated likely 2nd PEA arrest) cards is following CTA chest: . 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 The dissection extends to the abdominal aorta and terminates in the common iliac arteries bilaterally. The abdominal vessels arise from both the true and false lumens and demonstrate good opacification. vascular surgery is following- Dr. Guzman Pulm: Continue with vent suppot keep sat >92% Bronchodilators, ICU vent bundle SBT daily as kell V/Q scal: low prob PE : Monitor renal function, electrolytes replacement as needed. Avoid nephrotoxins Renal function is worsening with Cr: 3.6 from 3.4 and UOP: 2650ml in 24 hrs. renal is following- Dr. Flannery US abdomen: No hydronephrosis. On D5NS@75ml/hr GI: Change tube feeds-Nepro with goal rate 40ml/hr Monitor LFT's, check Hep profile, US abdomen: Gall bladder wall thickening and possible pericholecystic fluid without evidence of gallstones No evidence of focal abnormalities within liver on D5NS@75ml/hr Heme: Daily CMP, CBC ID: d/c Zosyn and place on Rocephin, Monitor for signs of infections ( Fever, WBC) sputum cx: MSSA sensitive to Rocephin Endo: SSI if needed for glycemic control SCDs Hold pharmacologic DVT prophylaxis given new acute dissection Doppler US LE negative for DVT Discussed with patient's and updated her on his condition. Level 3 Abner Elizabeth MD May 25, 2017 10:54
[2017-05-25] MEDS: cefTRIAXone INJ 1,000 MG in SODIUM CHLORIDE 0.9% INJ 100 ML IV SCH (11:46)
[2017-05-25] MEDS: POTASSIUM CHLOR 20 MEQ PREMIX 100 ML IV SCH ×2 (11:47→13:53)
[2017-05-25 12:01] LABS: MAGNESIUM 2.8 MG/DL (1.5-2.5)
[2017-05-25 13:40] LABS: AMORPHOUS SEDIMENT, URINE RARE; BACTERIA, URINE RARE /hpf; BILIRUBIN, URINE NEG (NEG); BLOOD, URINE MOD (NEG); GLUCOSE,URINE NEG (NEG); KETONE, URINE NEG (NEG); NITRITE,URINE NEG (NEG); URIC ACID CRYSTALS, URINE OCC /hpf; URINE COLOR YELLOW (YELLW/STRAW); URINE LEUKOCYTE ESTERASE SMALL (NEG)
--- NOTE | 2017-05-25 14:07 | HHI.NPPN ---
Subjective History of Present Illness 36 year old with Aortic dissection ARF Objective Data Data Vital Signs Date Time Temp Pulse Resp B/P (MAP) Pulse Ox O2 Delivery O2 Flow Rate FiO2 05/25/17 11:58 98 40 05/25/17 11:00 99.3 91 17 110/65 (80) 96 05/25/17 11:00 40 05/25/17 11:00 89 05/25/17 11:00 96 Mechanical Ventilator 40 05/25/17 07:57 97 40 05/25/17 07:00 99.5 88 16 123/52 (75) 95 05/25/17 07:00 95 Mechanical Ventilator 40 05/25/17 07:00 91 05/25/17 07:00 40 05/25/17 04:30 96 142/71 05/25/17 04:00 86 05/25/17 04:00 99.9 87 16 133/76 (95) 97 05/25/17 04:00 97 Mechanical Ventilator 40 05/25/17 04:00 40 05/25/17 03:26 96 40 05/25/17 01:00 40 05/25/17 01:00 97 Mechanical Ventilator 40 05/25/17 00:50 97 40 05/25/17 00:00 97 Mechanical Ventilator 50 05/25/17 00:00 99.7 86 16 123/69 (87) 97 05/25/17 00:00 50 05/25/17 00:00 86 05/24/17 20:31 96 50 05/24/17 20:00 50 05/24/17 20:00 90 05/24/17 20:00 100.5 98 16 125/71 (89) 97 105/50 (68) 05/24/17 20:00 97 Mechanical Ventilator 50 05/24/17 17:19 95 50 05/24/17 16:39 91 40 05/24/17 15:00 100.0 90 20 119/74 (89) 97 125/64 (84) 05/24/17 15:00 93 05/24/17 15:00 97 Mechanical Ventilator 40 05/24/17 14:34 97 40 -: 05/25/17 0420 05/25/17 0420 Microbiology 05/25/17 Aerobic Blood Culture, Received Pending 05/25/17 Anaerobic Blood Culture, Received Pending 05/25/17 Aerobic Blood Culture, Received Pending 05/25/17 Anaerobic Blood Culture, Received Pending 05/25/17 Urine Culture, Received Pending Physical Exam General Appearance: Well Developed, No Acute Distress Eyes Eye Exam: Pupils Equal Ears & Nose Ears & Nose Exam: Tympanic Membranes Normal Throat Throat Exam: Oral Mucosa [place] & Moist Neck Neck Exam: Neck Supple Pulmonary Resp Exam: Clear Bilaterally Cardiology CV Exam: Regular, Normal Sinus Rhythm Gastrointestinal/Abdomen GI Exam: Soft, Non-Tender Genitourinary Exam: Clear Urine Integumentary Skin Exam: Intact Extremeties Extremities Exam: No Edema Neurologic Neuro Exam: Sedated Assessment/Plan Problem List: (1) Acute renal failure ICD Codes: N17.9 - Acute kidney failure, unspecified Plan: He has large dissection of aorta continue to monitor he is passing urine creatinine increase he did receive IV contrast repeat CTA on Tuesday done Dissection up to Common Iliac arteries seen with true and false lumen perfused Cr 3.6 follow k 3.1 replace non oliguric Monitor intake and output Control blood pressure Esmolol drip on hold (2) Dissection of aorta, thoracoabdominal ICD Codes: I71.03 - Dissection of thoracoabdominal aorta Status: Acute Plan: intubated vascular is following Renal arteries remains perfused Roz Flannery MD May 25, 2017 14:07
[2017-05-25] MEDS ORDERED: DEXMEDETOMIDINE 200 MCG/50 ML Premix IV PRN (16:15)
[2017-05-25] MEDS ORDERED: RASS Change Order XX ONE (16:30)
[2017-05-25] MEDS: DEXMEDETOMIDINE 200 MCG in NS 48 ML IV PRN ×2 (16:52→20:59)
[2017-05-25] MEDS: NS IV PRN ×4 (20:59→23:55)
[2017-05-25] MEDS: LABETALOL IV PRN ×4 (20:59→23:55)
[2017-05-25] MEDS: ATORVASTATIN 40 MG TAB PO SCH (21:01)
[2017-05-26] VITALS (14 sets, daily range): BP systolic 96–133; BP diastolic 58–76; PULSE 74–95; RESP 16–24; TEMP 97.8–99.2; O2SAT 94–98
[2017-05-26] MEDS: NS IV PRN ×18 (02:18→23:06)
[2017-05-26] MEDS: LABETALOL IV PRN ×18 (02:18→23:06)
[2017-05-26] MEDS: DEXMEDETOMIDINE 200 MCG in NS 48 ML IV PRN (02:18)
[2017-05-26] MEDS: ARTIFICIAL TEARS OPTH SOLN 15 ML BTL EACH EYE SCH ×6 (02:19→23:00)
[2017-05-26] MEDS: RESP: ALBUTEROL 2.5 MG/IPRATROPIUM 0.5 MG NEB (SCH) NEB ×6 (03:34→22:54)
[2017-05-26] MEDS: CHLORHEXIDINE GLUCONATE 2 % 1 PACK (2 CLOTHS) TOP SCH (04:00)
[2017-05-26 05:10] LABS: AUTOMATED NEUTROPHIL # 6.1 TH/MM3 (1.8-7.7); BASOPHIL % 0.5 % (0.0-2.0); EOSINOPHIL # 0.7 TH/MM3 (0-0.4); EOSINOPHIL % 6.4 % (0.0-4.0); HEMATOCRIT 23.9 % (39.0-51.0); HEMOGLOBIN 8.2 GM/DL (13.0-17.0); LYMPH % 18.3 % (9.0-44.0); LYMPHOCYTE # 1.9 TH/MM3 (1.0-4.8); MEAN CELL VOLUME 79.4 FL (80.0-100.0); MEAN CORPUSCULAR HEMOGLOBIN 27.3 PG (27.0-34.0); MEAN CORPUSCULAR HGB CONC 34.4 % (32.0-36.0); MONO % 14.9 % (0.0-8.0); MONOCYTE # 1.5 TH/MM3 (0-0.9); NEUT % 59.9 % (16.0-70.0); PLATELET COUNT 270 TH/MM3 (150-450); RED CELL DISTRIBUTION WIDTH 15.8 % (11.6-17.2); WHITE BLOOD COUNT 10.2 TH/MM3 (4.0-11.0)
[2017-05-26 05:37] LABS: ALBUMIN 2.3 GM/DL (3.4-5.0); AST (GOT) 51 U/L (15-37); BICARBONATE 24.5 MEQ/L (21.0-32.0); BLOOD UREA NITROGEN 45 MG/DL (7-18); CALCIUM 8.4 MG/DL (8.5-10.1); CHLORIDE 111 MEQ/L (98-107); CREATININE 3.62 MG/DL (0.60-1.30); GLOMERULAR FILTRATION RATE 23 ML/MIN (>89); GLUCOSE,RANDOM 111 MG/DL (74-106); SODIUM (NA) 145 MEQ/L (136-145)
[2017-05-26 05:42] LABS: ALKALINE PHOSPHATASE 83 U/L (45-117); ALT (GPT) 130 U/L (12-78); TOTAL BILIRUBIN ADULT 0.7 MG/DL (0.2-1.0); TOTAL PROTEIN 6.5 GM/DL (6.4-8.2)
[2017-05-26] MEDS: DEXT 5%-NACL 0.9% 1000 ML INJ 1,000 ML IV SCH ×2 (06:29→18:06)
[2017-05-26] MEDS: hydrALAZINE HCL 20 MG/ML VIAL IV PUSH PRN ×4 (06:30→18:39)
--- NOTE | 2017-05-26 07:49 | HHI.PR ---
Objective Vital Signs Date Time Temp Pulse Resp B/P (MAP) Pulse Ox O2 Delivery O2 Flow Rate FiO2 05/26/17 07:00 97 Mechanical Ventilator 40 05/26/17 07:00 40 05/26/17 03:35 98 40 05/26/17 03:00 40 05/26/17 03:00 77 05/26/17 03:00 99.2 78 19 96/58 (71) 98 123/72 (89) 05/26/17 03:00 97 Mechanical Ventilator 40 05/25/17 23:31 97 40 05/25/17 23:00 99.1 85 16 135/83 (100) 97 124/66 (85) 05/25/17 23:00 82 05/25/17 23:00 40 05/25/17 23:00 97 Mechanical Ventilator 40 05/25/17 19:31 97 40 05/25/17 19:00 90 05/25/17 19:00 40 05/25/17 19:00 97.9 90 18 114/54 (74) 96 112/63 (79) 05/25/17 19:00 97 Mechanical Ventilator 40 05/25/17 16:22 97 40 05/25/17 15:00 90 05/25/17 15:00 99.4 89 22 127/66 (86) 97 05/25/17 15:00 96 Mechanical Ventilator 40 05/25/17 15:00 40 05/25/17 11:58 98 40 05/25/17 11:00 99.3 91 17 110/65 (80) 96 05/25/17 11:00 40 05/25/17 11:00 89 05/25/17 11:00 96 Mechanical Ventilator 40 05/25/17 07:57 97 40 I/O 05/25/17 05/25/17 05/25/17 05/26/17 05/26/17 05/26/17 07:00 15:00 23:00 07:00 15:00 23:00 Intake Total 1482 ml 1974 ml 2768 ml Output Total 1800 ml 1205.0 ml 900 ml Balance -318 ml 769.0 ml 1868 ml Intake Oral 0 ml IV Total 1482 ml 1974 ml 2488 ml Tube Feeding 240 ml Tube Irrigant 40 ml Output Urine Total 1650 ml 1050 ml 900 ml Gastric Drainage Total 150 ml 150 ml Tube Feeding Residual Discard 5.0 ml # Bowel Movements 1 0 1 Result Diagram: 05/26/170 05/26/170 Objective Remarks on vent opens eyes briefly to voice sedated did move bilat feet and hands for me to command Assessment and Plan Assessment and Plan imp apparently doing well neurowise by report bilat cva likely from cardiac arrest dissection mi? eeg neg check labs will follow ? precedex? 05/26/17 labs ok doing well neurowise and following commands bilat infarct ashley during code Alejandro Espinosa MD May 26, 2017 07:49
--- NOTE | 2017-05-26 08:03 | HHI.CCPN ---
Subjective Remarks/Hospital Course 05/19: Is a 36-year-old male with a history of hypertension who is on vacation from the [place] area who did not take his antihypertensives today because he is on vacation, and was having sexual intercourse when he had sudden onset of severe substernal radiating to the back chest pain earlier today. 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 He was emergently transferred to [facility] for further management. I evaluated the patient on arrival to the ICU by EVAC. Patient denies abdominal pain. Still endorses chest pain although this is improving. Patient denies any other symptoms. CT chest abdomen pelvis was reviewed and reviewed with myself and Dr. Guzman and does demonstrate a type B dissection. 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 Initial laboratory evidence demonstrates a lactate of 1.3, creatinine 1.2, normal LFTs. 05/20: On home C Pap. Urine output 30 cc/h currently. Remains on esmolol and labetalol drips. Remains drowsy though arousable. +4.4 L 05/21: Resting comfortably on nasal cannula. Awake and alert currently. Denies any shortness of breath or chest pain currently. 05/22: AAO x3, resting comfortably. 05/23 Patient went into PEA arrest early this morning now sedated with Diprivan and intubated. Off Esmolol drip. 05/24 Patient is sedated with Diprivan and intubated. On Labetolol drip. MRI brain yesterday showed multiple small infracts, no hemorrhage. 05/25 Patient remains intubated and sedated. T: 100.5 last night. Renal function is worsening with Cr: 3.6 from 3.4 and UOP: 2650ml in 24 hrs. 05/26 No events overnight. Sedated and intubated. Afebrile. Cr: 3.62 , UOP: 1950ml in 24 hrs Objective Vital Signs Date Time Temp Pulse Resp B/P (MAP) Pulse Ox O2 Delivery O2 Flow Rate FiO2 05/26/17 07:00 97 Mechanical Ventilator 40 05/26/17 03:00 77 05/26/17 03:00 99.2 19 96/58 (71) 123/72 (89) 05/22/17 23:40 15.00 Intake and Output 05/26/17 05/26/17 05/27/17 08:00 16:00 00:00 Intake Total 2518 ml Output Total 900 ml Balance 1618 ml Result Diagram: 05/26/17 0430 05/26/17 0430 Other Results Laboratory Tests Test 05/25/17 08:30 05/25/17 12:30 05/25/17 18:30 05/26/17 04:30 Phosphorus Level 4.0 MG/DL Magnesium Level 2.8 MG/DL Vitamin B12 Level 474 PG/ML Free Thyroxine 0.80 NG/DL Thyroid Stimulating Hormone 3rd Gen 2.300 uIU/ML Urine Color YELLOW Urine Turbidity HAZY Urine pH 5.0 Urine Specific [place] 1.021 Urine Protein 30 mg/dL Urine Glucose (UA) NEG mg/dL Urine Ketones NEG mg/dL Urine Occult Blood MOD Urine Nitrite NEG Urine Bilirubin NEG Urine Urobilinogen LESS THAN 2.0 MG/DL Urine Leukocyte Esterase SMALL Urine RBC 130 /hpf Urine WBC 7 /hpf Urine Uric Acid Crystals OCC /hpf Urine Amorphous Sediment RARE Urine Bacteria RARE /hpf Microscopic Urinalysis Comment CATH-CULTURE IND Potassium Level 3.4 MEQ/L 3.3 MEQ/L White Blood Count 10.2 TH/MM3 Red Blood Count 3.00 MIL/MM3 Hemoglobin 8.2 GM/DL Hematocrit 23.9 % Mean Corpuscular Volume 79.4 FL Mean Corpuscular Hemoglobin 27.3 PG Mean Corpuscular Hemoglobin Concent 34.4 % Red Cell Distribution Width 15.8 % Platelet Count 270 TH/MM3 Mean Platelet Volume 7.0 FL Neutrophils (%) (Auto) 59.9 % Lymphocytes (%) (Auto) 18.3 % Monocytes (%) (Auto) 14.9 % Eosinophils (%) (Auto) 6.4 % Basophils (%) (Auto) 0.5 % Neutrophils # (Auto) 6.1 TH/MM3 Lymphocytes # (Auto) 1.9 TH/MM3 Monocytes # (Auto) 1.5 TH/MM3 Eosinophils # (Auto) 0.7 TH/MM3 Basophils # (Auto) 0.0 TH/MM3 CBC Comment DIFF FINAL Differential Comment Blood Urea Nitrogen 45 MG/DL Creatinine 3.62 MG/DL Random Glucose 111 MG/DL Total Protein 6.5 GM/DL Albumin 2.3 GM/DL Calcium Level 8.4 MG/DL Alkaline Phosphatase 83 U/L Aspartate Amino Transf (AST/SGOT) 51 U/L Alanine Aminotransferase (ALT/SGPT) 130 U/L Total Bilirubin 0.7 MG/DL Sodium Level 145 MEQ/L Chloride Level 111 MEQ/L Carbon Dioxide Level 24.5 MEQ/L Anion Gap 10 MEQ/L Estimat Glomerular Filtration Rate 23 ML/MIN Imaging Last Impressions Chest X-Ray 05/24/17 Signed Impressions: Service Date/Time: Wednesday, May 24, 2017 20:45 - CONCLUSION: 1. Persistent left lower lung infiltrates. 2. Lines and tubes as above. uRdy Pollock MD Lung Scan-VQ Nuclear Medicine 05/23/17 0000 Signed Impressions: Service Date/Time: Tuesday, May 23, 2017 10:22 - CONCLUSION: Low probability of pulmonary embolism. Buddy Harrison MD FACR Lower Extremity Ultrasound 05/23/17 0000 Signed Impressions: Service Date/Time: Tuesday, May 23, 2017 08:02 - CONCLUSION: Negative for deep venous thrombosis. Buddy Harrison MD FACR Head CT 05/23/17 0000 Signed Impressions: Service Date/Time: Tuesday, May 23, 2017 03:56 - CONCLUSION: 1. Examination quality is degraded by motion artifact. 2. No definite acute finding is identified. There is a 3 mm punctate area of high density in the left frontal periventricular white matter. This could represent small focus of acute blood products. Suggest attention to this on followup imaging. Wiliam Buck MD Brain MRI 05/23/17 Signed Impressions: Service Date/Time: Tuesday, May 23, 2017 15:59 - CONCLUSION: 1. 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 2. No hemorrhage observe. 3. Pansinus disease. Rudy Cervantes Jr., MD Aorta CTA 05/23/17 0000 Signed Impressions: Service Date/Time: Tuesday, May 23, 2017 03:58 - CONCLUSION: 1. 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 The dissection extends to the abdominal aorta and terminates in the common iliac arteries bilaterally. The abdominal vessels arise from both the true and false lumens and demonstrate good opacification. Suggest correlating with the patient's prior imaging study which documents the dissection. 2. 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 3. There is stranding of the periaortic fat adjacent to the arch aneurysm. 4. There are small bilateral pleural effusions, left larger than right, with bilateral volume loss and/or airspace consolidation bilaterally. Wiliam Buck MD Abdomen Ultrasound 05/23/17 0000 Signed Impressions: Service Date/Time: Tuesday, May 23, 2017 17:22 - CONCLUSION: 1. Gall bladder wall thickening and possible pericholecystic fluid without evidence of gallstones. May consider perform hepatic biliary tract scan to evaluate for acalculous cholecystitis. 2. No focal abnormality seen within the liver. Rudy Pollock MD Objective Remarks GENERAL: Patient is 36 yo s/p PEA arrest SKIN: Warm and dry. HEAD: Normocephalic. EYES: No scleral icterus. No injection or drainage. NECK: Supple, trachea midline. No JVD or lymphadenopathy. CARDIOVASCULAR: Regular rate and rhythm without murmurs, gallops, or rubs. RESPIRATORY: Breath sounds equal bilaterally. No accessory muscle use. GASTROINTESTINAL: Abdomen soft, non-tender, nondistended. MUSCULOSKELETAL: No cyanosis, or edema. Neuro: Sedated, intubated A/P Assessment and Plan VDRF s/p PEA arrest Acute kidney injury Acute type B dissection Hypertensive emergency Elevated trop likley related to PEA arrest Elevated LFT's Anemia Plan: Neuro: On Diprivan infusion for sedation. Monitor neuro status. Daily sedation vacation. CT brain: There is a 3 mm punctate area of high density in the left frontal periventricular white matter. This could represent small focus of acute blood products. EEG : Mild diffuse encephalopathy, no seizure activity MRI brain: multiple small infarcts, no hemorrhage. Neuro is following- Dr. Espinosa CV: On Lopressor 50mg Q12, Clonidine 0.1mg Q12- Monitor HR and BP ,Goal SBP< 120, HR< 70 Repeat echo 05/23: EF 60-65%, no RWMA Echo showed EF 65-70%, no RWMA Monitor trop ( elevated likely 2nd PEA arrest) cards is following CTA chest: . 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 The dissection extends to the abdominal aorta and terminates in the common iliac arteries bilaterally. The abdominal vessels arise from both the true and false lumens and demonstrate good opacification. vascular surgery is following- Dr. Guzman Pulm: Continue with vent support keep sat >92% Bronchodilators, ICU vent bundle SBT daily as kell. Check CXR V/Q scal: low prob PE : Monitor renal function, electrolytes replacement as needed. Avoid nephrotoxins Renal function is worsening with Cr: 3.62 and UOP: 1950ml in 24 hrs. renal is following- Dr. Flannery US abdomen: No hydronephrosis. On D5NS@75ml/hr GI: On tube feeds-Nepro with goal rate 40ml/hr Monitor LFT's ( trending down),Hep profile is negative US abdomen: Gall bladder wall thickening and possible pericholecystic fluid without evidence of gallstones No evidence of focal abnormalities within liver on D5NS@75ml/hr Heme: Daily CMP, CBC ID: Continue Rocephin, Monitor for signs of infections ( Fever, WBC) sputum cx: MSSA sensitive to Rocephin Follow up on blood and urine cxs from 05/25 Endo: SSI if needed for glycemic control SCDs Hold pharmacologic DVT prophylaxis given new acute dissection Doppler US LE negative for DVT Discussed with patient's and updated her on his condition. Level 3 Abner Elizabeth MD May 26, 2017 08:03
[2017-05-26] MEDS: CHLORHEXIDINE 0.12% (ORAL KIT) 15 ML CUP MT SCH ×2 (08:08→19:49)
[2017-05-26] MEDS: METOPROLOL TARTRATE 25 MG TAB PO SCH ×2 (08:16→20:36)
[2017-05-26] MEDS: cloNIDine HCL 0.1 MG TAB PO SCH ×2 (08:16→20:36)
[2017-05-26] MEDS: FAMOTIDINE 20 MG TAB PO SCH (08:17)
[2017-05-26] MEDS: DOCUSATE SODIUM 50 MG/SENNA 8.6 MG TAB PO SCH ×2 (08:17→20:36)
[2017-05-26] MEDS: FAMOTIDINE 20 MG/2 ML VIAL IV PUSH SCH ×2 (08:17→20:35)
--- NOTE | 2017-05-26 09:05 | RADRPT ---
EXAM DATE/TIME: 05/26/2017 08:22 [facility] COMPARISON: CHEST SINGLE AP, May 24, 2017, 20:45. INDICATIONS : Ventilator-dependant respiratory failure. MEDICAL HISTORY : Hypertension. Renal failure, acute. SURGICAL HISTORY : Hernia repair. ENCOUNTER: Subsequent ACUITY: 1 day PAIN SCORE: Non-responsive. LOCATION: Bilateral chest FINDINGS: The support devices remain in place. There is no pneumothorax. There is some mild infiltrates in both lung bases. Otherwise, no significant changes are seen compared to the prior study. The heart size i s stable. The bony structures are stable. CONCLUSION: Mild bibasilar infiltrates. Otherwise no significant change compared to the prior study. Victor Hugo Partida MD on May 26, 2017 at 9:02 Board Certified Radiologist. This report was verified electronically.
[2017-05-26] MEDS ORDERED: DEXAMETHASONE SOD PHOS 20 MG/5 ML VIAL ONE (09:33)
[2017-05-26] MEDS ORDERED: RESP: ALBUTEROL 2.5 MG/IPRATROPIUM 0.5 MG NEB (PRN) NEB (09:45)
[2017-05-26] MEDS ORDERED: RESP: RACEPINEPHRINE 2.25% 0.5 ML NEB ONE (10:09)
[2017-05-26] MEDS ORDERED: DEXAMETHASONE SOD PHOS 20 MG/5 ML VIAL IV ONE (10:15)
--- NOTE | 2017-05-26 10:59 | HHI.NPPN ---
Subjective History of Present Illness 36 year old with Aortic dissection ARF Objective Data Data Vital Signs Date Time Temp Pulse Resp B/P (MAP) Pulse Ox O2 Delivery O2 Flow Rate FiO2 05/26/17 10:00 98 Nasal Cannula 6 05/26/17 10:00 97 Nasal Cannula 6.00 05/26/17 08:08 97 40 05/26/17 07:00 Nasal Cannula 40 05/26/17 07:00 74 05/26/17 07:00 97 Mechanical Ventilator 40 05/26/17 07:00 40 05/26/17 07:00 97.8 75 16 119/69 (86) 97 Arterial Line 05/26/17 03:35 98 40 05/26/17 03:00 40 05/26/17 03:00 77 05/26/17 03:00 99.2 78 19 96/58 (71) 98 123/72 (89) 05/26/17 03:00 97 Mechanical Ventilator 40 05/25/17 23:31 97 40 05/25/17 23:00 99.1 85 16 135/83 (100) 97 124/66 (85) 05/25/17 23:00 82 05/25/17 23:00 40 05/25/17 23:00 97 Mechanical Ventilator 40 05/25/17 19:31 97 40 05/25/17 19:00 90 05/25/17 19:00 40 05/25/17 19:00 97.9 90 18 114/54 (74) 96 112/63 (79) 05/25/17 19:00 97 Mechanical Ventilator 40 05/25/17 16:22 97 40 05/25/17 15:00 90 05/25/17 15:00 99.4 89 22 127/66 (86) 97 05/25/17 15:00 96 Mechanical Ventilator 40 05/25/17 15:00 40 05/25/17 11:58 98 40 05/25/17 11:00 99.3 91 17 110/65 (80) 96 05/25/17 11:00 40 05/25/17 11:00 89 05/25/17 11:00 96 Mechanical Ventilator 40 -: 05/26/17 0430 05/26/17 0430 Microbiology 05/25/17 Aerobic Blood Culture, Received Pending 05/25/17 Anaerobic Blood Culture, Received Pending 05/25/17 Aerobic Blood Culture, Received Pending 05/25/17 Anaerobic Blood Culture, Received Pending 05/25/17 Urine Culture, Received Pending Physical Exam General Appearance: Well Developed, No Acute Distress Eyes Eye Exam: Pupils Equal Ears & Nose Ears & Nose Exam: Tympanic Membranes Normal Throat Throat Exam: Oral Mucosa [place] & Moist Neck Neck Exam: Neck Supple Pulmonary Resp Exam: Clear Bilaterally Cardiology CV Exam: Regular, Normal Sinus Rhythm Gastrointestinal/Abdomen GI Exam: Soft, Non-Tender Genitourinary Exam: Clear Urine Integumentary Skin Exam: Intact Extremeties Extremities Exam: No Edema Neurologic Neuro Exam: Sedated Assessment/Plan Problem List: (1) Acute renal failure ICD Codes: N17.9 - Acute kidney failure, unspecified Plan: He has large dissection of aorta continue to monitor he is passing urine , creatinine he did receive IV contrast repeat CTA on Tuesday done Dissection up to Common Iliac arteries seen with true and false lumen perfused Cr 3.62 follow k 3.3 replace non oliguric Monitor intake and output Control blood pressure Esmolol drip on hold (2) Dissection of aorta, thoracoabdominal ICD Codes: I71.03 - Dissection of thoracoabdominal aorta Status: Acute Plan: extubated vascular is following Renal arteries remains perfused Roz Flannery MD May 26, 2017 10:59
[2017-05-26] MEDS: POTASSIUM CHLOR 20 MEQ PREMIX 100 ML IV SCH ×2 (12:16→14:33)
[2017-05-26] MEDS: cefTRIAXone INJ 1,000 MG in SODIUM CHLORIDE 0.9% INJ 100 ML IV SCH (12:16)
[2017-05-26] MEDS: MORPHINE SULFATE 2 MG/ML INJ IV PRN (12:25)
[2017-05-26 13:50] LABS: TROPONIN I 0.45 NG/ML (0.02-0.05)
[2017-05-26] MEDS: METOPROLOL TARTRATE 5 MG/5 ML VIAL IV PUSH PRN (16:06)
--- NOTE | 2017-05-26 18:15 | EKG ---
Date Performed: 05/26/2017 Time Performed: 12:35:12 PTAGE: 36 years EKG: Sinus rhythm Inferior T wave changes are nonspecific Borderline ECG PREVIOUS TRACING : 05/23/2017 02.09 No significant change from previous tracing noted. DOCTOR: Guillermo Bhakta Interpretating Date/Time 05/26/2017 18:13:57
[2017-05-26] MEDS: ATORVASTATIN 40 MG TAB PO SCH (20:36)
[2017-05-27] VITALS (15 sets, daily range): BP systolic 119–144; BP diastolic 67–79; PULSE 68–87; RESP 12–21; TEMP 97.6–99.1; O2SAT 94–99
[2017-05-27] MEDS: LABETALOL IV PRN ×10 (00:14→05:55)
[2017-05-27] MEDS: NS IV PRN ×10 (00:14→05:55)
[2017-05-27] MEDS: MORPHINE SULFATE 2 MG/ML INJ IV PRN (02:00)
[2017-05-27] MEDS: RESP: ALBUTEROL 2.5 MG/IPRATROPIUM 0.5 MG NEB (SCH) NEB ×6 (02:24→23:20)
[2017-05-27] MEDS: ARTIFICIAL TEARS OPTH SOLN 15 ML BTL EACH EYE SCH ×6 (03:00→23:00)
[2017-05-27] MEDS: CHLORHEXIDINE GLUCONATE 2 % 1 PACK (2 CLOTHS) TOP SCH (03:12)
[2017-05-27 04:32] LABS: BASOPHIL % 0.3 % (0.0-2.0); EOSINOPHIL % 0.1 % (0.0-4.0); HEMATOCRIT 23.7 % (39.0-51.0); LYMPHOCYTE # 1.5 TH/MM3 (1.0-4.8); MEAN CELL VOLUME 79.3 FL (80.0-100.0); MEAN CORPUSCULAR HEMOGLOBIN 26.9 PG (27.0-34.0); MEAN CORPUSCULAR HGB CONC 33.9 % (32.0-36.0); MEAN PLATELET VOLUME 6.6 FL (7.0-11.0); MONO % 14.3 % (0.0-8.0); MONOCYTE # 1.7 TH/MM3 (0-0.9); NEUT % 73.3 % (16.0-70.0); PLATELET COUNT 312 TH/MM3 (150-450); RED BLOOD COUNT 2.99 MIL/MM3 (4.50-5.90); RED CELL DISTRIBUTION WIDTH 15.9 % (11.6-17.2); WHITE BLOOD COUNT 12.2 TH/MM3 (4.0-11.0)
[2017-05-27 05:15] LABS: ALBUMIN 2.4 GM/DL (3.4-5.0); ALT (GPT) 116 U/L (12-78); AST (GOT) 47 U/L (15-37); BLOOD UREA NITROGEN 43 MG/DL (7-18); CALCIUM 8.2 MG/DL (8.5-10.1); CHLORIDE 110 MEQ/L (98-107); CREATININE 3.43 MG/DL (0.60-1.30); GLOMERULAR FILTRATION RATE 25 ML/MIN (>89); GLUCOSE,RANDOM 115 MG/DL (74-106); SODIUM (NA) 143 MEQ/L (136-145)
[2017-05-27 05:18] LABS: ALKALINE PHOSPHATASE 80 U/L (45-117); TOTAL BILIRUBIN ADULT 0.4 MG/DL (0.2-1.0); TOTAL PROTEIN 6.6 GM/DL (6.4-8.2)
--- NOTE | 2017-05-27 08:19 | HHI.CCPN ---
Subjective Remarks/Hospital Course 05/19: Is a 36-year-old male with a history of hypertension who is on vacation from the [place] area who did not take his antihypertensives today because he is on vacation, and was having sexual intercourse when he had sudden onset of severe substernal radiating to the back chest pain earlier today. 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 He was emergently transferred to [facility] for further management. I evaluated the patient on arrival to the ICU by EVAC. Patient denies abdominal pain. Still endorses chest pain although this is improving. Patient denies any other symptoms. CT chest abdomen pelvis was reviewed and reviewed with myself and Dr. Guzman and does demonstrate a type B dissection. 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 Initial laboratory evidence demonstrates a lactate of 1.3, creatinine 1.2, normal LFTs. 05/20: On home C Pap. Urine output 30 cc/h currently. Remains on esmolol and labetalol drips. Remains drowsy though arousable. +4.4 L 05/21: Resting comfortably on nasal cannula. Awake and alert currently. Denies any shortness of breath or chest pain currently. 05/22: AAO x3, resting comfortably. 05/23 Patient went into PEA arrest early this morning now sedated with Diprivan and intubated. Off Esmolol drip. 05/24 Patient is sedated with Diprivan and intubated. On Labetolol drip. MRI brain yesterday showed multiple small infracts, no hemorrhage. 05/25 Patient remains intubated and sedated. T: 100.5 last night. Renal function is worsening with Cr: 3.6 from 3.4 and UOP: 2650ml in 24 hrs. 05/26 No events overnight. Sedated and intubated. Afebrile. Cr: 3.62 , UOP: 1950ml in 24 hrs 05/27 Patient was extubated yesterday placed on BIPAP overnight. Cr: 3.42 today , UOP: 1800 ml in 24 hrs Objective Vital Signs Date Time Temp Pulse Resp B/P (MAP) Pulse Ox O2 Delivery O2 Flow Rate FiO2 05/27/17 04:16 97 40 05/27/17 03:36 98.3 76 20 124/72 (89) 05/27/17 03:36 Bi-Pap 05/26/17 19:30 6.00 Intake and Output 05/27/17 05/27/17 05/28/17 08:00 16:00 00:00 Intake Total 2266 ml Output Total 800 ml Balance 1466 ml Result Diagram: 05/27/17 0419 05/27/17 0419 Other Results Laboratory Tests Test 05/26/17 08:30 05/26/17 13:00 05/26/17 14:40 05/27/17 04:19 Blood Gas Puncture Site LT RADIAL RT RADIAL Blood Gas Patient Temperature 98.6 98.6 Blood Gas HCO3 23 mmol/L 22 mmol/L Blood Gas Base Excess -1.8 mmol/L -3.5 mmol/L Blood Gas Oxygen Saturation 96 % 94 % Arterial Blood pH 7.34 7.31 Arterial Blood Partial Pressure CO2 44 mmHg 45 mmHg Arterial Blood Partial Pressure O2 154 mmHg 96 mmHg Arterial Blood Oxygen Content 11.6 Vol % 14.0 Vol % Arterial Blood Carboxyhemoglobin 1.0 % 0.8 % Arterial Blood Methemoglobin 1.5 % 1.2 % Blood Gas Hemoglobin 8.3 G/DL 10.5 G/DL Oxygen Delivery Device VENTILATOR BIPAP Blood Gas Ventilator Setting CPAP/5PEEP/10PS IPAP12/EPAP5/PS7 Blood Gas Inspired Oxygen 40 % 40 % Total Creatine Kinase 554 U/L Creatine Kinase MB 2.9 NG/ML Creatine Kinase MB % 0.5 % Troponin I 0.45 NG/ML White Blood Count 12.2 TH/MM3 Red Blood Count 2.99 MIL/MM3 Hemoglobin 8.0 GM/DL Hematocrit 23.7 % Mean Corpuscular Volume 79.3 FL Mean Corpuscular Hemoglobin 26.9 PG Mean Corpuscular Hemoglobin Concent 33.9 % Red Cell Distribution Width 15.9 % Platelet Count 312 TH/MM3 Mean Platelet Volume 6.6 FL Neutrophils (%) (Auto) 73.3 % Lymphocytes (%) (Auto) 12.0 % Monocytes (%) (Auto) 14.3 % Eosinophils (%) (Auto) 0.1 % Basophils (%) (Auto) 0.3 % Neutrophils # (Auto) 9.0 TH/MM3 Lymphocytes # (Auto) 1.5 TH/MM3 Monocytes # (Auto) 1.7 TH/MM3 Eosinophils # (Auto) 0.0 TH/MM3 Basophils # (Auto) 0.0 TH/MM3 CBC Comment DIFF FINAL Differential Comment Blood Urea Nitrogen 43 MG/DL Creatinine 3.43 MG/DL Random Glucose 115 MG/DL Total Protein 6.6 GM/DL Albumin 2.4 GM/DL Calcium Level 8.2 MG/DL Alkaline Phosphatase 80 U/L Aspartate Amino Transf (AST/SGOT) 47 U/L Alanine Aminotransferase (ALT/SGPT) 116 U/L Total Bilirubin 0.4 MG/DL Sodium Level 143 MEQ/L Potassium Level 4.0 MEQ/L Chloride Level 110 MEQ/L Carbon Dioxide Level 24.0 MEQ/L Anion Gap 9 MEQ/L Estimat Glomerular Filtration Rate 25 ML/MIN Imaging Last Impressions Chest X-Ray 05/26/17 0000 Signed Impressions: Service Date/Time: May 08:22 - CONCLUSION: Mild bibasilar infiltrates. Otherwise no significant change compared to the prior study. Victor Hugo Partida MD Lung Scan- Nuclear Medicine 05/23/17 0000 Signed Impressions: Service Date/Time: Tuesday, May 23, 2017 10:22 - CONCLUSION: Low probability of pulmonary embolism. Buddy Harrison MD FACR Lower Extremity Ultrasound 05/23/17 0000 Signed Impressions: Service Date/Time: Tuesday, May 23, 2017 08:02 - CONCLUSION: Negative for deep venous thrombosis. Buddy Harrison MD FACR Head CT 05/23/17 0000 Signed Impressions: Service Date/Time: Tuesday, May 23, 2017 03:56 - CONCLUSION: 1. Examination quality is degraded by motion artifact. 2. No definite acute finding is identified. There is a 3 mm punctate area of high density in the left frontal periventricular white matter. This could represent small focus of acute blood products. Suggest attention to this on followup imaging. Wiliam Buck MD Brain MRI 05/23/17 0000 Signed Impressions: Service Date/Time: Tuesday, May 23, 2017 15:59 - CONCLUSION: 1. 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 2. No hemorrhage observe. 3. Pansinus disease. Rudy Cervantes Jr., MD Aorta CTA 05/23/17 0000 Signed Impressions: Service Date/Time: Tuesday, May 23, 2017 03:58 - CONCLUSION: 1. 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 The dissection extends to the abdominal aorta and terminates in the common iliac arteries bilaterally. The abdominal vessels arise from both the true and false lumens and demonstrate good opacification. Suggest correlating with the patient's prior imaging study which documents the dissection. 2. 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 3. There is stranding of the periaortic fat adjacent to the arch aneurysm. 4. There are small bilateral pleural effusions, left larger than right, with bilateral volume loss and/or airspace consolidation bilaterally. Wiliam Buck MD Abdomen Ultrasound 05/23/17 0000 Signed Impressions: Service Date/Time: Tuesday, May 23, 2017 17:22 - CONCLUSION: 1. Gall bladder wall thickening and possible pericholecystic fluid without evidence of gallstones. May consider perform hepatic biliary tract scan to evaluate for acalculous cholecystitis. 2. No focal abnormality seen within the liver. Rudy Pollock MD Objective Remarks GENERAL: Patient is 36 yo s/p PEA arrest extubated on BIPAP SKIN: Warm and dry. HEAD: Normocephalic. EYES: No scleral icterus. No injection or drainage. NECK: Supple, trachea midline. No JVD or lymphadenopathy. CARDIOVASCULAR: Regular rate and rhythm without murmurs, gallops, or rubs. RESPIRATORY: Breath sounds equal bilaterally. No accessory muscle use. GASTROINTESTINAL: Abdomen soft, non-tender, nondistended. MUSCULOSKELETAL: No cyanosis, or edema. Neuro: Awake A/P Assessment and Plan Resp Insuff- Extubated 05/26 s/p PEA arrest Acute kidney injury Acute type B dissection Hypertensive emergency Elevated trop likley related to PEA arrest Elevated LFT's Anemia Plan: Neuro: Monitor neuro status and avoid sedatives CT brain: There is a 3 mm punctate area of high density in the left frontal periventricular white matter. This could represent small focus of acute blood products. EEG : Mild diffuse encephalopathy, no seizure activity MRI brain: multiple small infarcts, no hemorrhage. Neuro is following- Dr. Espinosa CV: On Lopressor 50mg Q12, increase Clonidine 0.2mg Q8- Monitor HR and BP , Goal SBP< 120, HR< 70 Repeat echo 05/23: EF 60-65%, no RWMA Echo showed EF 65-70%, no RWMA Monitor trop ( elevated likely 2nd PEA arrest) cards is following CTA chest: . 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 The dissection extends to the abdominal aorta and terminates in the common iliac arteries bilaterally. The abdominal vessels arise from both the true and false lumens and demonstrate good opacification. vascular surgery is following- Dr. Guzman Pulm: Continue with oxygen keep sat >92% Bronchodilators, NIPPV for resp distress. Check ABG V/Q scal: low prob PE : Monitor renal function, electrolytes replacement as needed. Avoid nephrotoxins Renal is following- Dr. Flannery US abdomen: No hydronephrosis. On D5NS@75ml/hr Cr: 3.43 from 3.62 UOP: 1800 ml in 24hrs GI: On mechanical soft diet Monitor LFT's ( trending down),Hep profile is negative US abdomen: Gall bladder wall thickening and possible pericholecystic fluid without evidence of gallstones No evidence of focal abnormalities within liver on D5NS@75ml/hr Heme: Daily CMP, CBC ID: Continue Rocephin, Monitor for signs of infections ( Fever, WBC) sputum cx: MSSA sensitive to Rocephin Follow up on blood and urine cxs from 05/25- NGTD Endo: SSI if needed for glycemic control SCDs Hold pharmacologic DVT prophylaxis given new acute dissection Doppler US LE negative for DVT Level 2 Abner Elizabeth MD May 27, 2017 08:19
[2017-05-27] MEDS: DOCUSATE SODIUM 50 MG/SENNA 8.6 MG TAB PO SCH ×3 (09:00→21:00)
[2017-05-27] MEDS: FAMOTIDINE 20 MG/2 ML VIAL IV PUSH SCH ×2 (09:02→20:19)
[2017-05-27] MEDS: METOPROLOL TARTRATE 25 MG TAB PO SCH ×3 (09:02→21:00)
[2017-05-27] MEDS: CHLORHEXIDINE 0.12% (ORAL KIT) 15 ML CUP MT SCH ×2 (09:03→20:00)
[2017-05-27] MEDS: hydrALAZINE HCL 20 MG/ML VIAL IV PUSH PRN ×5 (09:52→20:20)
[2017-05-27] MEDS: cefTRIAXone INJ 1,000 MG in SODIUM CHLORIDE 0.9% INJ 100 ML IV SCH (12:05)
[2017-05-27] MEDS: cloNIDine HCL 0.2 MG TAB PO SCH ×3 (13:23→22:00)
--- NOTE | 2017-05-27 17:17 | HHI.NPPN ---
Subjective History of Present Illness 36 year old with Aortic dissection ARF Objective Data Data 05/27/17 05/28/17 19:00 07:00 Intake Total 578 ml Balance 578 ml IV Total 578 ml Vital Signs Date Time Temp Pulse Resp B/P (MAP) Pulse Ox O2 Delivery O2 Flow Rate FiO2 05/27/17 16:00 97.8 76 12 144/70 (94) 97 05/27/17 16:00 81 05/27/17 16:00 94 Nasal Cannula 4.00 05/27/17 15:54 97 Nasal Cannula 4.00 05/27/17 11:36 97 40 05/27/17 11:00 97.6 68 12 144/71 (95) 97 05/27/17 11:00 68 05/27/17 11:00 97 Bi-Pap 40 05/27/17 09:05 97 40 05/27/17 08:00 97.9 68 12 119/79 (92) 97 05/27/17 08:00 68 05/27/17 08:00 97 Bi-Pap 40 05/27/17 04:16 97 40 05/27/17 03:36 98.3 76 20 124/72 (89) 97 05/27/17 03:36 97 Bi-Pap 05/27/17 03:00 76 05/27/17 00:12 99 40 05/26/17 23:38 98.5 82 19 113/72 (86) 96 05/26/17 23:38 96 Bi-Pap 05/26/17 23:00 79 05/26/17 19:45 94 Bi-Pap 40 05/26/17 19:30 95 Nasal Cannula 6.00 05/26/17 19:30 98.7 88 24 121/67 (85) 95 05/26/17 19:26 97 40 05/26/17 19:00 95 -: 05/27/17 0419 05/27/17 0419 Physical Exam General Appearance: Well Developed, No Acute Distress Eyes Eye Exam: Pupils Equal Ears & Nose Ears & Nose Exam: Tympanic Membranes Normal Throat Throat Exam: Oral Mucosa [place] & Moist Neck Neck Exam: Neck Supple Pulmonary Resp Exam: Clear Bilaterally Cardiology CV Exam: Regular, Normal Sinus Rhythm Gastrointestinal/Abdomen GI Exam: Soft, Non-Tender Genitourinary Exam: Clear Urine Integumentary Skin Exam: Intact Extremeties Extremities Exam: No Edema Neurologic Neuro Exam: Sedated Assessment/Plan Problem List: (1) Acute renal failure ICD Codes: N17.9 - Acute kidney failure, unspecified Plan: He has large dissection of aorta continue to monitor he is passing urine , creatinine he did receive IV contrast repeat CTA on Tuesday done Dissection up to Common Iliac arteries seen with true and false lumen perfused Cr 3.43 improved follow k 4 UOP: 1800 ml in 24hrs non oliguric Monitor intake and output Control blood pressure on Metoprolol/clonidine/prn Hydralazine Tongue swollen (2) Dissection of aorta, thoracoabdominal ICD Codes: I71.03 - Dissection of thoracoabdominal aorta Status: Acute Plan: extubated vascular is following Renal arteries remains perfused Roz Flannery MD May 27, 2017 17:17
[2017-05-27] MEDS: METOPROLOL TARTRATE 5 MG/5 ML VIAL IV PUSH PRN ×2 (19:43→22:27)
[2017-05-27] MEDS: ATORVASTATIN 40 MG TAB PO SCH ×2 (20:19→21:00)
[2017-05-27] MEDS: DEXT 5%-NACL 0.9% 1000 ML INJ 1,000 ML IV SCH ×2 (20:30→22:07)
[2017-05-27] MEDS: LABETALOL HCL 100 MG/20 ML VIAL IV PUSH PRN ×7 (20:50→23:22)
[2017-05-27] MEDS: ESMOLOL DRIP INJ PREMIX 250 ML IV PRN (23:37)
[2017-05-28] VITALS (11 sets, daily range): BP systolic 125–142; BP diastolic 55–74; PULSE 82–93; RESP 16–32; TEMP 98.2–99.4; O2SAT 94–98
[2017-05-28] MEDS: ESMOLOL DRIP INJ PREMIX 250 ML IV PRN ×15 (01:11→23:34)
[2017-05-28] MEDS: ARTIFICIAL TEARS OPTH SOLN 15 ML BTL EACH EYE SCH ×6 (03:00→23:34)
[2017-05-28] MEDS: RESP: ALBUTEROL 2.5 MG/IPRATROPIUM 0.5 MG NEB (SCH) NEB ×5 (03:01→20:02)
[2017-05-28] MEDS: CHLORHEXIDINE GLUCONATE 2 % 1 PACK (2 CLOTHS) TOP SCH (04:00)
[2017-05-28 05:30] LABS: ALBUMIN 2.4 GM/DL (3.4-5.0); AST (GOT) 49 U/L (15-37); BICARBONATE 24.3 MEQ/L (21.0-32.0); BLOOD UREA NITROGEN 48 MG/DL (7-18); CALCIUM 8.4 MG/DL (8.5-10.1); CHLORIDE 109 MEQ/L (98-107); CREATININE 3.51 MG/DL (0.60-1.30); GLOMERULAR FILTRATION RATE 24 ML/MIN (>89); GLUCOSE,RANDOM 82 MG/DL (74-106); SODIUM (NA) 141 MEQ/L (136-145)
[2017-05-28 05:31] LABS: ALT (GPT) 106 U/L (12-78)
[2017-05-28 05:33] LABS: ALKALINE PHOSPHATASE 82 U/L (45-117); TOTAL BILIRUBIN ADULT 0.4 MG/DL (0.2-1.0); TOTAL PROTEIN 6.5 GM/DL (6.4-8.2)
[2017-05-28] MEDS: cloNIDine HCL 0.2 MG TAB PO SCH ×3 (05:54→21:57)
[2017-05-28] MEDS: LABETALOL HCL 100 MG/20 ML VIAL IV PUSH PRN (06:11)
[2017-05-28] MEDS: CHLORHEXIDINE 0.12% (ORAL KIT) 15 ML CUP MT SCH ×2 (08:00→20:00)
[2017-05-28 08:32] LABS: AUTOMATED NEUTROPHIL # 6.2 TH/MM3 (1.8-7.7); BASOPHIL # 0.1 TH/MM3 (0-0.2); BASOPHIL % 0.8 % (0.0-2.0); EOSINOPHIL # 0.5 TH/MM3 (0-0.4); EOSINOPHIL % 4.9 % (0.0-4.0); HEMATOCRIT 23.1 % (39.0-51.0); HEMOGLOBIN 7.7 GM/DL (13.0-17.0); LYMPH % 18.2 % (9.0-44.0); LYMPHOCYTE # 1.9 TH/MM3 (1.0-4.8); MEAN CELL VOLUME 79.4 FL (80.0-100.0); MEAN CORPUSCULAR HEMOGLOBIN 26.5 PG (27.0-34.0); MEAN CORPUSCULAR HGB CONC 33.4 % (32.0-36.0); MEAN PLATELET VOLUME 6.8 FL (7.0-11.0); MONO % 14.8 % (0.0-8.0); MONOCYTE # 1.5 TH/MM3 (0-0.9); NEUT % 61.3 % (16.0-70.0); PLATELET COUNT 321 TH/MM3 (150-450); RED BLOOD COUNT 2.91 MIL/MM3 (4.50-5.90); RED CELL DISTRIBUTION WIDTH 15.9 % (11.6-17.2); WHITE BLOOD COUNT 10.2 TH/MM3 (4.0-11.0)
[2017-05-28] MEDS: FAMOTIDINE 20 MG/2 ML VIAL IV PUSH SCH ×2 (09:00→21:57)
[2017-05-28] MEDS: DEXT 5%-NACL 0.9% 1000 ML INJ 1,000 ML IV SCH (09:00)
[2017-05-28] MEDS: METOPROLOL TARTRATE 25 MG TAB PO SCH ×2 (09:01→21:56)
[2017-05-28] MEDS: DOCUSATE SODIUM 50 MG/SENNA 8.6 MG TAB PO SCH ×2 (09:01→21:00)
--- NOTE | 2017-05-28 11:36 | HHI.NPPN ---
Subjective History of Present Illness 36 year old with Aortic dissection ARF Objective Data Data Vital Signs Date Time Temp Pulse Resp B/P (MAP) Pulse Ox O2 Delivery O2 Flow Rate FiO2 05/28/17 10:23 87 141/68 05/28/17 08:48 88 135/70 05/28/17 07:42 98 40 05/28/17 07:18 83 137/71 05/28/17 07:00 85 05/28/17 07:00 96 Bi-Pap 40 05/28/17 07:00 98.6 85 16 137/71 (93) 96 05/28/17 05:55 87 134/69 05/28/17 04:31 90 126/68 05/28/17 03:14 97 40 05/28/17 03:13 89 124/70 05/28/17 03:00 95 Bi-Pap 40 05/28/17 03:00 99.4 89 20 125/69 (87) 95 05/28/17 03:00 88 05/28/17 01:11 88 123/64 05/27/17 23:37 86 135/75 05/27/17 23:21 97 40 05/27/17 23:00 86 05/27/17 23:00 99.1 81 20 134/67 (89) 94 05/27/17 23:00 93 Bi-Pap 40 05/27/17 20:35 95 40 05/27/17 20:30 95 Nasal Cannula 5.00 05/27/17 19:00 87 05/27/17 19:00 97.9 77 21 123/76 (92) 94 05/27/17 19:00 95 Nasal Cannula 4.00 05/27/17 16:00 97.8 76 12 144/70 (94) 97 05/27/17 16:00 81 05/27/17 16:00 94 Nasal Cannula 4.00 05/27/17 15:54 97 Nasal Cannula 4.00 05/27/17 11:36 97 40 -: 05/28/17 0820 05/28/17 0430 Physical Exam General Appearance: Well Developed, No Acute Distress Eyes Eye Exam: Pupils Equal Ears & Nose Ears & Nose Exam: Tympanic Membranes Normal Throat Throat Exam: Oral Mucosa [place] & Moist Neck Neck Exam: Neck Supple Pulmonary Resp Exam: Clear Bilaterally Cardiology CV Exam: Regular, Normal Sinus Rhythm Gastrointestinal/Abdomen GI Exam: Soft, Non-Tender Genitourinary Exam: Clear Urine Integumentary Skin Exam: Intact Extremeties Extremities Exam: No Edema Neurologic Neuro Exam: Sedated Assessment/Plan Problem List: (1) Acute renal failure ICD Codes: N17.9 - Acute kidney failure, unspecified Plan: He has large dissection of aorta continue to monitor he is passing urine , creatinine he did receive IV contrast repeat CTA on Tuesday done Dissection up to Common Iliac arteries seen with true and false lumen perfused Cr 3.43 improved follow k 4 UOP: 1800 ml in 24hrs non oliguric Monitor intake and output Control blood pressure on Metoprolol/clonidine/prn Hydralazine Patient has good urine out. Creatinine almost same, K is normal. (2) Dissection of aorta, thoracoabdominal ICD Codes: I71.03 - Dissection of thoracoabdominal aorta Status: Acute Plan: extubated vascular is following Renal arteries remains perfused Felicia Thornton MD May 28, 2017 11:36
[2017-05-28] MEDS: cefTRIAXone INJ 1,000 MG in SODIUM CHLORIDE 0.9% INJ 100 ML IV SCH (12:34)
[2017-05-28] MEDS ORDERED: SODIUM CHLORIDE FLUSH PRN IV FLUSH (13:15)
[2017-05-28] MEDS: hydrALAZINE HCL 20 MG/ML VIAL IV PUSH PRN ×2 (14:15→23:39)
[2017-05-28] MEDS ORDERED: FUROSEMIDE 40 MG/4 ML VIAL IV PUSH ONE (15:30)
--- NOTE | 2017-05-28 15:38 | HHI.CCPN ---
Subjective Remarks/Hospital Course 05/19: Is a 36-year-old male with a history of hypertension who is on vacation from the [place] area who did not take his antihypertensives today because he is on vacation, and was having sexual intercourse when he had sudden onset of severe substernal radiating to the back chest pain earlier today. 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 He was emergently transferred to [facility] for further management. I evaluated the patient on arrival to the ICU by EVAC. Patient denies abdominal pain. Still endorses chest pain although this is improving. Patient denies any other symptoms. CT chest abdomen pelvis was reviewed and reviewed with myself and Dr. Guzman and does demonstrate a type B dissection. 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 Initial laboratory evidence demonstrates a lactate of 1.3, creatinine 1.2, normal LFTs. 05/20: On home C Pap. Urine output 30 cc/h currently. Remains on esmolol and labetalol drips. Remains drowsy though arousable. +4.4 L 05/21: Resting comfortably on nasal cannula. Awake and alert currently. Denies any shortness of breath or chest pain currently. 05/22: AAO x3, resting comfortably. 05/23 Patient went into PEA arrest early this morning now sedated with Diprivan and intubated. Off Esmolol drip. 05/24 Patient is sedated with Diprivan and intubated. On Labetolol drip. MRI brain yesterday showed multiple small infracts, no hemorrhage. 05/25 Patient remains intubated and sedated. T: 100.5 last night. Renal function is worsening with Cr: 3.6 from 3.4 and UOP: 2650ml in 24 hrs. 05/26 No events overnight. Sedated and intubated. Afebrile. Cr: 3.62 , UOP: 1950ml in 24 hrs 05/27 Patient was extubated yesterday placed on BIPAP overnight. Cr: 3.42 today , UOP: 1800 ml in 24 hrs Subjective: 05/28 Extubated yesterday and per report was compliant with Bipap overnight Remains on esmolol drip 200 mcg/kg/min and SBP in 140s. ZULY, probable ATN non-oliguric however I>>0 with signicant intake from MIVF as well as 180 mL/hr from esmolol drip. IVF d/c per nephrology and transitioning off esmolol to minimize fluid. Lasix now per my discussion with Dr. Thornton. He is tachypneic, obtained ABG with hypercapnea on simple mask. Placing On Bipap. at bedside requesting eventual transfer to [place], though she realized he is not stable for that yet. Objective Vital Signs Date Time Temp Pulse Resp B/P (MAP) Pulse Ox O2 Delivery O2 Flow Rate FiO2 05/28/17 15:14 91 142/58 05/28/17 12:53 97 40 05/28/17 11:00 98.7 18 05/28/17 11:00 Nasal Cannula 6.00 Intake and Output 05/28/17 05/28/17 05/29/17 08:00 16:00 00:00 Intake Total 2140 ml Output Total 800 ml Balance 1340 ml Result Diagram: 05/28/17 0820 05/28/17 0430 Imaging Last Impressions Chest X-Ray 05/26/17 0000 Signed Impressions: Service Date/Time: May 08:22 - CONCLUSION: Mild bibasilar infiltrates. Otherwise no significant change compared to the prior study. Victor Hugo Partida MD Lung Scan- Nuclear Medicine 05/23/17 0000 Signed Impressions: Service Date/Time: Tuesday, May 23, 2017 10:22 - CONCLUSION: Low probability of pulmonary embolism. Buddy Harrison MD FACR Lower Extremity Ultrasound 05/23/17 0000 Signed Impressions: Service Date/Time: Tuesday, May 23, 2017 08:02 - CONCLUSION: Negative for deep venous thrombosis. Buddy Harrison MD FACR Head CT 05/23/17 0000 Signed Impressions: Service Date/Time: Tuesday, May 23, 2017 03:56 - CONCLUSION: 1. Examination quality is degraded by motion artifact. 2. No definite acute finding is identified. There is a 3 mm punctate area of high density in the left frontal periventricular white matter. This could represent small focus of acute blood products. Suggest attention to this on followup imaging. Wiliam Buck MD Brain MRI 05/23/17 0000 Signed Impressions: Service Date/Time: Tuesday, May 23, 2017 15:59 - CONCLUSION: 1. 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 2. No hemorrhage observe. 3. Pansinus disease. Rudy Cervantes Jr., MD Aorta CTA 05/23/17 0000 Signed Impressions: Service Date/Time: Tuesday, May 23, 2017 03:58 - CONCLUSION: 1. 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 The dissection extends to the abdominal aorta and terminates in the common iliac arteries bilaterally. The abdominal vessels arise from both the true and false lumens and demonstrate good opacification. Suggest correlating with the patient's prior imaging study which documents the dissection. 2. 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 3. There is stranding of the periaortic fat adjacent to the arch aneurysm. 4. There are small bilateral pleural effusions, left larger than right, with bilateral volume loss and/or airspace consolidation bilaterally. Wiliam Buck MD Abdomen Ultrasound 05/23/17 0000 Signed Impressions: Service Date/Time: Tuesday, May 23, 2017 17:22 - CONCLUSION: 1. Gall bladder wall thickening and possible pericholecystic fluid without evidence of gallstones. May consider perform hepatic biliary tract scan to evaluate for acalculous cholecystitis. 2. No focal abnormality seen within the liver. Rudy Pollock MD Objective Remarks GENERAL: Patient is 36 yo AAM sitting up in [facility] bed, tachypneic on simple mask. SKIN: Warm and dry, adequately perfused. HEAD: Normocephalic. EYES: Pupils 3 mm and reactive. No scleral icterus. No injection or drainage. NECK: Supple, trachea midline. No JVD or lymphadenopathy. CARDIOVASCULAR: Regular rate and rhythm without murmurs, gallops, or rubs, rate in 80s RESPIRATORY: Tachypneic without accessory muscle use. Coarse breath sounds bilaterally. No wheeze. GASTROINTESTINAL: Abdomen soft, non-tender, nondistended. : Ledesma in place with light yellow urine output. MUSCULOSKELETAL: No cyanosis. Edema 1+ all extremities VASC: R IJ in place with dressing c/d/i. R radial art line has been removed. NEURO: Awake, alert. Speaks a few words but appears limited due to dyspnea. Moves all extremities without focal deficit. A/P Assessment and Plan Resp Insuff- Extubated 05/26 s/p PEA arrest Acute kidney injury Acute type B dissection Hypertensive emergency Elevated trop likley related to PEA arrest Elevated LFT's Anemia Plan: Neuro: Monitor neuro status and avoid sedatives CT brain: There is a 3 mm punctate area of high density in the left frontal periventricular white matter. This could represent small focus of acute blood products. MRI brain: multiple small infarcts, no hemorrhage. EEG : Mild diffuse encephalopathy, no seizure activity Embolic stroke may be secondary to cardiac arrest. Discussed with Dr. Espinosa who states no anticoagulation at this time unless he has A fib. Start ASA daily. - Repeat Echo 05/23 with no thrombus. - Sinus rhythm. - Repeat imaging 05/23 with stable dissection distal to subclavian. Neuro is following- Dr. Espinosa Ordered OT/daily PT. CV: HTN Acute type B aortic dissection Elevated troponin PEA cardiac arrest 05/23/17, appears secondary to severe sleep apnea/obesity hypoventilation with Bipap nonadherence. CTA stable. VQ scan negative 05/23. Hyperlipidemia Remains on esmolol drip with Goal SBP< 120. Will start Cleviprex in effort to minimize volume administration as he is getting volume overloaded. Increase Lopressor 50mg Q6. Norvasc 5 mg daily to facilitate drip weaning. Continue Clonidine 0.2mg Q8. Repeat echo 05/23: EF 60-65%, no RWMA Echo showed EF 65-70%, no RWMA Evaluated by cardiology, Dr. Bhakta on 05/24 due to troponin elevation. He attributed elevated troponin to PEA arrest, hypoxia, renal insufficiency. No further ischemic workup planned at this time. CTA chest: . 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 The dissection extends to the abdominal aorta and terminates in the common iliac arteries bilaterally. The abdominal vessels arise from both the true and false lumens and demonstrate good opacification. vascular surgery is following- Dr. Guzman Continue atorvastatin 40 mg by mouth daily Pulm: Obstructive sleep apnea Obesity hypoventilation syndrome Acute hypercapnic respiratory failure Continue with oxygen keep sat >92%. Nocturnal BiPAP 15/8 40%. Now tachypneic with acute hypercapnea. Will place back on Bipap Lasix as per below. Duoneb q 4hours. Albuterol q2 prn. V/Q scan: low prob PE CXR in am. : ZULY Likely secondary to ischemic ATN following cardiac arrest. He is nonoliguric however has been increasingly positive fluid balance. Agree with discontinuation of IVF. Will transition off esmolol drip as per above to minimize intake. Lasix 60 mg IV now as respiratory status is worsening due to volume overload. Creatinine plateau around 3.5 last few days, hopefully will recover though family aware of possibility of requiring HD if unable to manage volume status. Renal is following- Dr. Flannery US abdomen: No hydronephrosis. GI: On mechanical soft diet heart healthy diet. Monitor LFT's ( trending down),Hep profile is negative US abdomen: Gall bladder wall thickening and possible pericholecystic fluid without evidence of gallstones No evidence of focal abnormalities within liver Heme: Monitor CBC VQ scan negative 05/23 BLE u/s negative for DVT 05/23 ID: On Rocephin 05/25 #4. Previously on Zosyn 05/23-05/25. Abx day #6 for MSSA in sputum. Would continue for 8 day course (unless clinical change) sputum cx: MSSA sensitive to Rocephin Follow up on blood and urine cxs from 05/25- [facility]GT[facility] Endo: Euglycemic PROPH: SCDs /Heparin subcut q 8 hours for DVT prophylaxis. (Discussed with Dr. Guzman who would be amenable to anticoagulation if felt to be indicated for stroke, though Dr. Espinosa states would recommend ASA at this time. ). ACCESS R IJ CVL 05/23 #6. R radial art line placed 05/[address] FULL CODE Discussed with Dr. Guzman and Dr. Espinosa. and mother updated at bedside. Discussed with bedside RN. Level 3 followup Mercy Pro MD May 28, 2017 15:38
[2017-05-28] MEDS: amLODIPine BESYLATE 5 MG TAB PO SCH (16:05)
[2017-05-28] MEDS: CLEVIDIPINE INJ 50 ML IV PRN ×4 (16:06→23:34)
[2017-05-28] MEDS ORDERED: FUROSEMIDE 20 MG/2 ML VIAL IV PUSH ONE (16:30)
--- NOTE | 2017-05-28 17:06 | HHI.PR ---
Subjective Remarks on bipap Objective Vital Signs Date Time Temp Pulse Resp B/P (MAP) Pulse Ox O2 Delivery O2 Flow Rate FiO2 05/28/17 16:41 93 150/71 05/28/17 16:06 91 116/71 05/28/17 16:05 95 40 05/28/17 15:14 91 142/58 05/28/17 15:00 98.2 93 32 142/58 (86) 97 05/28/17 15:00 97 Simple Mask 8.00 05/28/17 13:24 87 120/69 05/28/17 12:53 97 40 05/28/17 12:02 88 145/69 05/28/17 11:00 87 05/28/17 11:00 98.7 87 18 131/74 (93) 94 05/28/17 11:00 94 Nasal Cannula 6.00 05/28/17 10:23 87 141/68 05/28/17 08:48 88 135/70 05/28/17 07:42 98 40 05/28/17 07:18 83 137/71 05/28/17 07:00 85 05/28/17 07:00 96 Bi-Pap 40 05/28/17 07:00 98.6 85 16 137/71 (93) 96 05/28/17 05:55 87 134/69 05/28/17 04:31 90 126/68 05/28/17 03:14 97 40 05/28/17 03:13 89 124/70 05/28/17 03:00 95 Bi-Pap 40 05/28/17 03:00 99.4 89 20 125/69 (87) 95 05/28/17 03:00 88 05/28/17 01:11 88 123/64 05/27/17 23:37 86 135/75 05/27/17 23:21 97 40 05/27/17 23:00 86 05/27/17 23:00 99.1 81 20 134/67 (89) 94 05/27/17 23:00 93 Bi-Pap 40 05/27/17 20:35 95 40 05/27/17 20:30 95 Nasal Cannula 5.00 05/27/17 19:00 87 05/27/17 19:00 97.9 77 21 123/76 (92) 94 05/27/17 19:00 95 Nasal Cannula 4.00 I/O 05/27/17 05/27/17 05/27/17 05/28/17 05/28/17 05/28/17 07:00 15:00 23:00 07:00 15:00 23:00 Intake Total 3362 ml 578 ml 200 ml 2140 ml Output Total 800 ml 600 ml 800 ml Balance 2562 ml 578 ml -400 ml 1340 ml Intake Oral 200 ml 240 ml IV Total 3362 ml 578 ml 1900 ml Output Urine Total 800 ml 600 ml 800 ml # Bowel Movements 1 2 1 Result Diagram: 05/28/17 0820 05/28/17 0430 Objective Remarks vff mnows may [id number] bue and ble awake alert not a[hasic Assessment and Plan Assessment and Plan imp apparently doing well neurowise by report bilat cva likely from cardiac arrest dissection mi? eeg neg check labs will follow ? precedex? 05/26/17 labs ok doing well neurowise and following commands bilat infarct brandyley during code -- 05/28/17 looks well neurowise will signoff Alejandro Espinosa MD May 28, 2017 17:06
[2017-05-28] MEDS: HEPARIN SODIUM - SQ 10,000 UNITS/ML VIAL SQ SCH ×2 (18:34→21:57)
[2017-05-28] MEDS: ATORVASTATIN 40 MG TAB PO SCH (21:56)
[2017-05-28] MEDS: SODIUM CHLORIDE FLUSH BID IV FLUSH SCH (21:57)
[2017-05-29] VITALS (14 sets, daily range): BP systolic 115–138; BP diastolic 41–95; PULSE 72–93; RESP 23–26; TEMP 98.6–100.3; O2SAT 93–99
[2017-05-29] MEDS: RESP: ALBUTEROL 2.5 MG/IPRATROPIUM 0.5 MG NEB (SCH) NEB ×6 (00:23→19:49)
[2017-05-29] MEDS: METOPROLOL TARTRATE 5 MG/5 ML VIAL IV PUSH PRN ×2 (00:35→23:07)
[2017-05-29] MEDS ORDERED: FUROSEMIDE 40 MG/4 ML VIAL IV PUSH ONE (01:00)
[2017-05-29] MEDS: CLEVIDIPINE INJ 50 ML IV PRN ×17 (01:31→23:37)
[2017-05-29] MEDS: METOPROLOL TARTRATE 25 MG TAB PO SCH ×2 (03:17→08:30)
[2017-05-29] MEDS: ARTIFICIAL TEARS OPTH SOLN 15 ML BTL EACH EYE SCH ×5 (03:18→22:00)
[2017-05-29] MEDS: CHLORHEXIDINE GLUCONATE 2 % 1 PACK (2 CLOTHS) TOP SCH (04:00)
[2017-05-29] MEDS: HEPARIN SODIUM - SQ 10,000 UNITS/ML VIAL SQ SCH ×3 (05:19→22:01)
[2017-05-29] MEDS: cloNIDine HCL 0.2 MG TAB PO SCH (05:19)
--- NOTE | 2017-05-29 06:10 | RADRPT ---
EXAM DATE/TIME: 05/29/2017 04:02 [place] COMPARISON: CHEST SINGLE AP, May 26, 2017, 8:22. INDICATIONS : Shortness of breath, possible pulmonary disease. MEDICAL HISTORY : Hypertension. Renal failure, acute. SURGICAL HISTORY : Hernia repair. ENCOUNTER: Subsequent ACUITY: 1 week PAIN SCORE: Non-responsive. LOCATION: Bilateral chest FINDINGS: Bilateral airspace opacities persist, mild on the right and moderate on the left, not significantly c hanged. Small left pleural effusion likely. I don't see a pneumothorax. Heart size stable, within normal limits. Right IJ central venous catheter again seen, tip at the atriocaval junction. Endotracheal tube and na sogastric tube have been removed. CONCLUSION: Left greater than right airspace opacities persist without significant change. Patient has been extub ated. Wiliam Segovia MD on May 29, 2017 at 6:08 Board Certified Radiologist. This report was verified electronically.
[2017-05-29 06:43] LABS: AUTOMATED NEUTROPHIL # 6.5 TH/MM3 (1.8-7.7); BASOPHIL # 0.1 TH/MM3 (0-0.2); BASOPHIL % 0.5 % (0.0-2.0); EOSINOPHIL # 0.6 TH/MM3 (0-0.4); EOSINOPHIL % 6.3 % (0.0-4.0); HEMATOCRIT 25.6 % (39.0-51.0); HEMOGLOBIN 9.2 GM/DL (13.0-17.0); LYMPH % 18.1 % (9.0-44.0); LYMPHOCYTE # 1.9 TH/MM3 (1.0-4.8); MEAN CELL VOLUME 79.8 FL (80.0-100.0); MEAN CORPUSCULAR HEMOGLOBIN 28.6 PG (27.0-34.0); MEAN CORPUSCULAR HGB CONC 35.8 % (32.0-36.0); MEAN PLATELET VOLUME 7.4 FL (7.0-11.0); MONO % 12.4 % (0.0-8.0); MONOCYTE # 1.3 TH/MM3 (0-0.9); NEUT % 62.7 % (16.0-70.0); PLATELET COUNT 368 TH/MM3 (150-450); WHITE BLOOD COUNT 10.3 TH/MM3 (4.0-11.0)
[2017-05-29 06:51] LABS: BICARBONATE 23.9 MEQ/L (21.0-32.0); CALCIUM 8.2 MG/DL (8.5-10.1); CREATININE 3.26 MG/DL (0.60-1.30); MAGNESIUM 2.6 MG/DL (1.5-2.5); PHOSPHORUS 4.4 MG/DL (2.5-4.9)
[2017-05-29] MEDS: LABETALOL HCL 100 MG/20 ML VIAL IV PUSH PRN ×4 (06:55→23:36)
[2017-05-29] MEDS: CHLORHEXIDINE 0.12% (ORAL KIT) 15 ML CUP MT SCH ×2 (08:00→20:00)
[2017-05-29] MEDS: amLODIPine BESYLATE 5 MG TAB PO SCH (08:31)
[2017-05-29] MEDS: FAMOTIDINE 20 MG/2 ML VIAL IV PUSH SCH ×2 (08:31→22:01)
[2017-05-29] MEDS: ASPIRIN 81 MG CHEW TAB CHEW SCH (08:31)
[2017-05-29] MEDS: SODIUM CHLORIDE FLUSH BID IV FLUSH SCH ×2 (08:37→22:01)
[2017-05-29] MEDS: DOCUSATE SODIUM 50 MG/SENNA 8.6 MG TAB PO SCH ×2 (09:00→22:02)
[2017-05-29] MEDS: hydrALAZINE HCL 20 MG/ML VIAL IV PUSH PRN (09:20)
[2017-05-29] MEDS: CARVEDILOL 12.5 MG TAB PO SCH ×2 (11:21→22:02)
[2017-05-29] MEDS: FUROSEMIDE 40 MG/4 ML VIAL IV PUSH SCH ×3 (11:22→22:01)
--- NOTE | 2017-05-29 11:26 | HHI.NPPN ---
Subjective History of Present Illness 36 year old with Aortic dissection ARF Additional Remarks Patient is alert, on BIPAP and moderate resp. distress. Objective Data Data Vital Signs Date Time Temp Pulse Resp B/P (MAP) Pulse Ox O2 Delivery O2 Flow Rate FiO2 05/29/17 10:32 98 50 05/29/17 09:34 92 151/76 05/29/17 08:19 95 50 05/29/17 08:02 91 146/74 05/29/17 07:00 97 Bi-Pap 50 05/29/17 07:00 98.7 93 26 138/41 (73) 97 05/29/17 07:00 93 05/29/17 06:53 94 162/76 05/29/17 05:19 90 125/69 05/29/17 04:53 96 50 05/29/17 03:49 91 117/63 05/29/17 03:00 87 05/29/17 03:00 97 Bi-Pap 50 05/29/17 03:00 98.6 87 23 115/57 (76) 97 05/29/17 01:31 85 119/49 05/29/17 00:23 95 50 05/28/17 23:34 83 143/57 05/28/17 23:34 84 143/57 05/28/17 23:00 98.6 83 18 135/55 (81) 96 05/28/17 23:00 82 05/28/17 23:00 96 Bi-Pap 50 05/28/17 21:56 84 126/70 05/28/17 20:17 83 138/65 05/28/17 20:10 85 115/55 05/28/17 20:02 96 50 05/28/17 19:06 88 130/67 05/28/17 19:00 98 Bi-Pap 50 05/28/17 19:00 99.2 87 18 131/68 (89) 98 05/28/17 19:00 86 05/28/17 17:41 88 135/69 05/28/17 16:41 93 150/71 05/28/17 16:06 91 116/71 05/28/17 16:05 95 40 05/28/17 15:14 91 142/58 05/28/17 15:00 98.2 93 32 142/58 (86) 97 05/28/17 15:00 89 05/28/17 15:00 97 Simple Mask 8.00 05/28/17 13:24 87 120/69 05/28/17 12:53 97 40 05/28/17 12:02 88 145/69 -: 05/29/17 0515 05/29/17 0515 Physical Exam General Appearance: Well Developed, No Acute Distress Eyes Eye Exam: Pupils Equal Ears & Nose Ears & Nose Exam: Tympanic Membranes Normal Throat Throat Exam: Oral Mucosa [place] & Moist Neck Neck Exam: Neck Supple Pulmonary Resp Exam: Clear Bilaterally Cardiology CV Exam: Regular, Normal Sinus Rhythm Gastrointestinal/Abdomen GI Exam: Soft, Non-Tender Genitourinary Exam: Clear Urine Integumentary Skin Exam: Intact Extremeties Extremities Exam: Moderate Edema, Pitting Edema, Dependent Edema Neurologic Neuro Exam: Alert, Awake Psychiatric Psych Exam: Appropriate Responses Assessment/Plan Problem List: (1) Acute renal failure ICD Codes: N17.9 - Acute kidney failure, unspecified Plan: He has large dissection of aorta continue to monitor he is passing urine , creatinine he did receive IV contrast repeat CTA on Tuesday done Dissection up to Common Iliac arteries seen with true and false lumen perfused Cr 3.43 improved follow k 4 UOP: 1800 ml in 24hrs non oliguric Monitor intake and output Blood pressure was elevated, now on Coreg/clonidine/Labetalol/ Cardizem and prn Hydralazine Patient has good urine out. Creatinine is slightly better. K is low, will replace. (2) Dissection of aorta, thoracoabdominal ICD Codes: I71.03 - Dissection of thoracoabdominal aorta Status: Acute Plan: extubated vascular is following Renal arteries remains perfused Felicia Thornton MD May 29, 2017 11:26
[2017-05-29] MEDS ORDERED: POTASSIUM CHLOR 20 MEQ PREMIX 100 ML IV ONE ×2 (12:00→14:45)
[2017-05-29] MEDS: ESMOLOL DRIP INJ PREMIX 250 ML IV PRN ×4 (12:09→20:18)
--- NOTE | 2017-05-29 12:25 | HHI.CCPN ---
Subjective Remarks/Hospital Course 05/19: Is a 36-year-old male with a history of hypertension who is on vacation from the [place] area who did not take his antihypertensives today because he is on vacation, and was having sexual intercourse when he had sudden onset of severe substernal radiating to the back chest pain earlier today. 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 He was emergently transferred to [facility] for further management. I evaluated the patient on arrival to the ICU by EVAC. Patient denies abdominal pain. Still endorses chest pain although this is improving. Patient denies any other symptoms. CT chest abdomen pelvis was reviewed and reviewed with myself and Dr. Guzman and does demonstrate a type B dissection. 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 Initial laboratory evidence demonstrates a lactate of 1.3, creatinine 1.2, normal LFTs. 05/20: On home C Pap. Urine output 30 cc/h currently. Remains on esmolol and labetalol drips. Remains drowsy though arousable. +4.4 L 05/21: Resting comfortably on nasal cannula. Awake and alert currently. Denies any shortness of breath or chest pain currently. 05/22: AAO x3, resting comfortably. 05/23 Patient went into PEA arrest early this morning now sedated with Diprivan and intubated. Off Esmolol drip. 05/24 Patient is sedated with Diprivan and intubated. On Labetolol drip. MRI brain yesterday showed multiple small infracts, no hemorrhage. 05/25 Patient remains intubated and sedated. T: 100.5 last night. Renal function is worsening with Cr: 3.6 from 3.4 and UOP: 2650ml in 24 hrs. 05/26 No events overnight. Sedated and intubated. Afebrile. Cr: 3.62 , UOP: 1950ml in 24 hrs 05/27 Patient was extubated yesterday placed on BIPAP overnight. Cr: 3.42 today , UOP: 1800 ml in 24 hrs 05/28 Extubated yesterday and per report was compliant with Bipap overnight Remains on esmolol drip 200 mcg/kg/min and SBP in 140s. ZULY, probable ATN non- oliguric however I>>0 with signicant intake from MIVF as well as 180 mL/hr from esmolol drip. IVF d/c per nephrology and transitioning off esmolol to minimize fluid. Jeffix now per my discussion with Dr. Thornton. He is tachypneic, obtained ABG with hypercapnea on simple mask. Placing On Bipap. at bedside requesting eventual transfer to [place], though she realized he is not stable for that yet. Subjective 05/29: Remains on BiPAP since 299 with increasing respiratory rates. Will attempt a more aggressive diuresis. We started on esmolol drip due to persistent tachycardia and unable to reach target blood pressure and heart rate requirements. At high risk for reintubation. Objective Vital Signs Date Time Temp Pulse Resp B/P (MAP) Pulse Ox O2 Delivery O2 Flow Rate FiO2 05/29/17 12:09 91 136/71 05/29/17 11:00 98 Bi-Pap 50 05/29/17 11:00 98.6 24 05/28/17 15:00 8.00 Intake and Output 05/29/17 05/29/17 05/30/17 08:00 16:00 00:00 Intake Total 440 ml Output Total 3650 ml Balance -3210 ml Result Diagram: 05/29/17 0515 05/29/17 0515 Other Results Microbiology Date/Time Source Procedure Growth Status 05/25/17 13:27 Blood Peripheral Aerobic Blood Culture - Preliminary NO GROWTH IN 4 DAYS Resulted 05/25/17 13:27 Blood Peripheral Anaerobic Blood Culture - Preliminary NO GROWTH IN 4 DAYS Resulted 05/23/17 05:30 Sputum Endotracheal Gram Stain - Final Complete 05/23/17 05:30 Sputum Culture - Final Staphylococcus Aureus Complete 05/25/17 12:30 Urine Catheterized Urine Urine Culture - Final NO GROWTH IN 48 HOURS. Complete Imaging Last Impressions Chest X-Ray 05/29/17 0600 Signed Impressions: Service Date/Time: Monday, May 29, 2017 04:02 - CONCLUSION: Left greater than right airspace opacities persist without significant change. Patient has been extubated. Wiliam Segovia MD Lung Scan- Nuclear Medicine 05/23/17 0000 Signed Impressions: Service Date/Time: Tuesday, May 23, 2017 10:22 - CONCLUSION: Low probability of pulmonary embolism. Buddy Harrison MD FACR Lower Extremity Ultrasound 05/23/17 Signed Impressions: Service Date/Time: Tuesday, May 23, 2017 08:02 - CONCLUSION: Negative for deep venous thrombosis. Buddy Harrison MD FACR Head CT 05/23/17 Signed Impressions: Service Date/Time: Tuesday, May 23, 2017 03:56 - CONCLUSION: 1. Examination quality is degraded by motion artifact. 2. No definite acute finding is identified. There is a 3 mm punctate area of high density in the left frontal periventricular white matter. This could represent small focus of acute blood products. Suggest attention to this on followup imaging. Wiliam Buck MD Brain MRI 05/23/17 Signed Impressions: Service Date/Time: Tuesday, May 23, 2017 15:59 - CONCLUSION: 1. 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 2. No hemorrhage observe. 3. Pansinus disease. Rudy Cervantes Jr., MD Aorta CTA 05/23/17 Signed Impressions: Service Date/Time: Tuesday, May 23, 2017 03:58 - CONCLUSION: 1. 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 The dissection extends to the abdominal aorta and terminates in the common iliac arteries bilaterally. The abdominal vessels arise from both the true and false lumens and demonstrate good opacification. Suggest correlating with the patient's prior imaging study which documents the dissection. 2. 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 3. There is stranding of the periaortic fat adjacent to the arch aneurysm. 4. There are small bilateral pleural effusions, left larger than right, with bilateral volume loss and/or airspace consolidation bilaterally. Wiliam Buck MD Abdomen Ultrasound 05/23/17 Signed Impressions: Service Date/Time: Tuesday, May 23, 2017 17:22 - CONCLUSION: 1. Gall bladder wall thickening and possible pericholecystic fluid without evidence of gallstones. May consider perform hepatic biliary tract scan to evaluate for acalculous cholecystitis. 2. No focal abnormality seen within the liver. Rudy Pollock MD Objective Remarks GENERAL: 36-year-old distress AA male resting in bed on BiPAP in mild respiratory distress SKIN: Warm and dry, adequately perfused. HEAD: Normocephalic. EYES: Pupils 3 mm and reactive. No scleral icterus. No injection or drainage. NECK: Supple, trachea midline. No JVD or lymphadenopathy. Right IJ CVL is clean dry and intact CARDIOVASCULAR: Regular rate and rhythm without murmurs, gallops, or rubs, rate in 80s RESPIRATORY: Tachypneic without accessory muscle use. Coarse breath sounds bilaterally. No wheeze. GASTROINTESTINAL: Abdomen soft, non-tender, nondistended. Hypoactive bowel sounds are appreciated MUSCULOSKELETAL: No cyanosis. Edema 2+ all extremities NEURO: Awake, alert. Protecting airway moves all extremities without focal deficit. Urinary Catheter: Yes Assessment to: Continue Ledesma insert reason: Prolonged Immobilization Vascular Central Line Catheter: Yes Assessment to: Continue Line: Central Venous Catheter Side: Right Location: Internal, Jugular A/P Assessment and Plan Neuro/Psych: Bilateral frontal embolic CVA Evaluated by neurology/Dr. Espinosa MRI brain 05/23 revealed bilateral frontal embolic CVA CT brain: There is a 3 mm punctate area of high density in the left frontal periventricular white matter. This could represent small focus of acute blood products. EEG : Mild diffuse encephalopathy, no seizure activity Continue aspirin 162 mg p.o. daily. Okayed with neurology. No anticoagulation planned in this A. fib identified PT/OT/ST evaluate and treat Currently on oxycodone 5 mg every 4 hours as needed pain 1 through 5 with morphine sulfate 2 mg for breakthrough pain CV: Hypertensive emergency Acute type B aortic dissection Elevated troponin PEA cardiac arrest 05/23/17, secondary to obstructive sleep apnea/obesity hypoventilation syndrome with Bipap nonadherence. CTA stable. VQ scan negative . Hyperlipidemia Currently on clevidipine gtt drip at 21 mg an hour, esmolol drip at 50 mcg/kg/ min Change Lopressor 50mg Q6 to carvedilol 25 mg twice daily Discontinue Norvasc 5 mg daily and change to diltiazem 90 mg every 6 hours Increase clonidine 0.2mg Q8. To 0.3 mg every 8 hours Repeat echo 05/23: EF 60-65%, no RWMA Evaluated by cardiology, Dr. Bhakta on 05/24 due to troponin elevation. He attributed elevated troponin to PEA arrest, hypoxia, renal insufficiency. No further ischemic workup planned at this time. CTA chest: . 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 The dissection extends to the abdominal aorta and terminates in the common iliac arteries bilaterally. The abdominal vessels arise from both the true and false lumens and demonstrate good opacification. Vascular surgery is following- Dr. Guzman Continue atorvastatin 40 mg by mouth daily for dyslipidemia Pulm: Obstructive sleep apnea Obesity hypoventilation syndrome Acute hypercapnic respiratory failure Continue with oxygen keep sat >92%. Nocturnal BiPAP 15/8 50%. Albuterol/ipratropium aerosols q 4hours with albuterol q2 prn. V/Q scan: low prob PE CXR in am. 05/30 Renal/: Acute kidney injury Likely secondary to ischemic ATN following cardiac arrest. He is nonoliguric however has been increasingly positive fluid balance. Discussed with nephrology. Furosemide 40 mg IV every 8 hours and attempt to diurese Renal is following- Dr. Flannery US abdomen: No hydronephrosis. Check urine eosinophils and electrolytes GI: Elevated transaminases On mechanical soft diet heart healthy diet. Monitor LFT's ( trending down),Hep profile is negative US abdomen: Gall bladder wall thickening and possible pericholecystic fluid without evidence of gallstones. Recommend HIDA scan if clinically indicated No evidence of focal abnormalities within liver Heme: Microcytic anemia Monitor CBC VQ scan negative 05/23 BLE u/s negative for DVT 05/23 ID: MSSA pneumonia On ceftriaxone 05/25 #5. Previously on Zosyn 05/23-05/25. Abx day #7 for MSSA in sputum. Pertinent: 05/25 -blood cultures 2 -no growth to date 05/25 -urine culture -no growth to date 05/23 -sputum -MSSA 05/23 -blood cultures 2 -no growth today Endo: Euglycemic now requiring sliding scale insulin TSH 2.3 FEN: Hypokalemia Hyper magnesium Replace electrolytes as clinically indicated PROPH: SCDs /Heparin subcut q 8 hours for DVT prophylaxis. (Previous screener and blender documented discussion with Dr. Guzman who would be amenable to anticoagulation if felt to be indicated for stroke, Dr. Espinosa states currently recommends ASA at this time. ). ACCESS R IJ CVL 05/23 #7. FULL CODE updated at bedside. Discussed with bedside RN. Level 3 followup Landen Sharp MD May 29, 2017 12:25
[2017-05-29] MEDS: cefTRIAXone INJ 1,000 MG in SODIUM CHLORIDE 0.9% INJ 100 ML IV SCH (12:27)
[2017-05-29] MEDS: cloNIDine HCL 0.3 MG TAB PO SCH ×2 (13:03→22:02)
[2017-05-29] MEDS: DILTIAZEM HCL 90 MG TAB PO SCH ×3 (13:03→23:38)
[2017-05-29 18:48] LABS: BICARBONATE 25.1 MEQ/L (21.0-32.0); CALCIUM 8.3 MG/DL (8.5-10.1); CREATININE 3.23 MG/DL (0.60-1.30)
[2017-05-29] MEDS: ATORVASTATIN 40 MG TAB PO SCH (21:00)
[2017-05-30] VITALS (16 sets, daily range): BP systolic 106–128; BP diastolic 47–69; PULSE 68–105; RESP 18–25; TEMP 98.6–102.8; O2SAT 85–100
[2017-05-30] MEDS: RESP: ALBUTEROL 2.5 MG/IPRATROPIUM 0.5 MG NEB (SCH) NEB ×6 (00:16→21:34)
[2017-05-30] MEDS: CLEVIDIPINE INJ 50 ML IV PRN ×12 (00:53→22:04)
[2017-05-30] MEDS: LABETALOL HCL 100 MG/20 ML VIAL IV PUSH PRN (01:25)
[2017-05-30] MEDS: ESMOLOL DRIP INJ PREMIX 250 ML IV PRN ×3 (01:32→18:01)
[2017-05-30] MEDS: MORPHINE SULFATE 2 MG/ML INJ IV PRN (01:49)
[2017-05-30] MEDS: METOPROLOL TARTRATE 5 MG/5 ML VIAL IV PUSH PRN (02:05)
[2017-05-30] MEDS ORDERED: LABETALOL HCL 100 MG/20 ML VIAL IV ONE (02:45)
[2017-05-30] MEDS: CHLORHEXIDINE GLUCONATE 2 % 1 PACK (2 CLOTHS) TOP SCH (04:00)
[2017-05-30 04:07] LABS: AUTOMATED NEUTROPHIL # 12.1 TH/MM3 (1.8-7.7); BASOPHIL # 0.1 TH/MM3 (0-0.2); BASOPHIL % 0.5 % (0.0-2.0); EOSINOPHIL # 0.6 TH/MM3 (0-0.4); EOSINOPHIL % 3.5 % (0.0-4.0); HEMATOCRIT 25.4 % (39.0-51.0); LYMPHOCYTE # 1.6 TH/MM3 (1.0-4.8); MEAN CELL VOLUME 79.8 FL (80.0-100.0); MEAN CORPUSCULAR HEMOGLOBIN 28.2 PG (27.0-34.0); MEAN CORPUSCULAR HGB CONC 35.4 % (32.0-36.0); MEAN PLATELET VOLUME 7.5 FL (7.0-11.0); MONO % 10.7 % (0.0-8.0); MONOCYTE # 1.7 TH/MM3 (0-0.9); NEUT % 75.3 % (16.0-70.0); PLATELET COUNT 346 TH/MM3 (150-450); RED BLOOD COUNT 3.19 MIL/MM3 (4.50-5.90); RED CELL DISTRIBUTION WIDTH 15.6 % (11.6-17.2)
[2017-05-30 04:23] LABS: CREATININE, RANDOM URINE 52.2 MG/DL
[2017-05-30 04:33] LABS: ALBUMIN 2.8 GM/DL (3.4-5.0); ALKALINE PHOSPHATASE 91 U/L (45-117); ALT (GPT) 80 U/L (12-78); AST (GOT) 38 U/L (15-37); BICARBONATE 25.4 MEQ/L (21.0-32.0); BLOOD UREA NITROGEN 51 MG/DL (7-18); CALCIUM 8.4 MG/DL (8.5-10.1); CHLORIDE 106 MEQ/L (98-107); CREATININE 3.07 MG/DL (0.60-1.30); GLOMERULAR FILTRATION RATE 28 ML/MIN (>89); GLUCOSE,RANDOM 112 MG/DL (74-106); MAGNESIUM 2.3 MG/DL (1.5-2.5); PHOSPHORUS 3.4 MG/DL (2.5-4.9); SODIUM (NA) 142 MEQ/L (136-145); TOTAL BILIRUBIN ADULT 0.5 MG/DL (0.2-1.0); TOTAL PROTEIN 7.4 GM/DL (6.4-8.2)
[2017-05-30] MEDS ORDERED: DILTIAZEM HCL 50 MG/10 ML VIAL IV PUSH ONE (05:10)
--- NOTE | 2017-05-30 05:26 | RADRPT ---
EXAM DATE/TIME: 05/30/2017 04:26 [facility] COMPARISON: CHEST SINGLE AP, May 29, 2017, 4:02. INDICATIONS : Shortness of breath, possible pulmonary disease. MEDICAL HISTORY : Hypertension. Renal failure, acute. SURGICAL HISTORY : Hernia repair ENCOUNTER: Subsequent ACUITY: 1 week PAIN SCORE: Non-responsive. LOCATION: Bilateral chest FINDINGS: A single portable frontal view of the chest shows diffuse areas of parenchymal consolidation througho ut both lungs. There has been some progression in the infiltrate within the right upper lobe. No effu sions. Elevation right hemidiaphragm. Mild cardiomegaly. Right-sided central line. CONCLUSION: Bilateral pulmonary infiltrates with the right upper lobe component more pronounced from the prior st noreen. Rudy Cervantes Jr., MD on May 30, 2017 at 5:24 Board Certified Radiologist. This report was verified electronically.
[2017-05-30] MEDS: HEPARIN SODIUM - SQ 10,000 UNITS/ML VIAL SQ SCH ×3 (05:30→21:13)
[2017-05-30] MEDS: FUROSEMIDE 40 MG/4 ML VIAL IV PUSH SCH ×3 (05:31→21:14)
[2017-05-30] MEDS: ARTIFICIAL TEARS OPTH SOLN 15 ML BTL EACH EYE SCH ×3 (05:31→21:13)
[2017-05-30] MEDS: cloNIDine HCL 0.3 MG TAB PO SCH ×3 (06:00→21:15)
[2017-05-30] MEDS: DILTIAZEM HCL 90 MG TAB PO SCH ×3 (06:00→18:42)
[2017-05-30] MEDS ORDERED: PROPOFOL 500 MG/50 ML INJ 50 ML ONE ×2 (06:53→07:07)
[2017-05-30] MEDS ORDERED: FUROSEMIDE 40 MG/4 ML VIAL IV PUSH ONE (07:00)
[2017-05-30] MEDS ORDERED: ETOMIDATE 20 MG/10 ML VIAL IV PUSH ONE (07:00)
[2017-05-30] MEDS ORDERED: ETOMIDATE 40 MG/20 ML VIAL ONE (07:03)
--- NOTE | 2017-05-30 07:52 | RADRPT ---
EXAM DATE/TIME: 05/30/2017 07:27 [facility] COMPARISON: CHEST SINGLE AP, May 29, 2017, 4:02. CHEST SINGLE AP, May 30, 2017, 4:26. INDICATIONS : Post intubation. MEDICAL HISTORY : Hypertension. Renal failure, acute. SURGICAL HISTORY : Hernia repair ENCOUNTER: Subsequent ACUITY: 1 week PAIN SCORE: Non-responsive. LOCATION: Bilateral chest FINDINGS: Right IJ line is present with tip overlapping the expected region of the SVC. ET tube is present with tip overlapping approximately 2 cm above the julee. There is worsening air space process bilaterall y and worse in the right lung. Bibasilar opacities are present may be due to a combination of consoli dation and or pleural effusion. CONCLUSION: Worsening air space process bilaterally most likely pulmonary edema and bilateral pleural effusions a re also suspected. Laurie Mancera MD on May 30, 2017 at 7:43 Board Certified Radiologist. This report was verified electronically.
[2017-05-30] MEDS ORDERED: amLODIPine BESYLATE 5 MG TAB PO SCH (09:00)
[2017-05-30] MEDS: SODIUM CHLORIDE FLUSH BID IV FLUSH SCH ×2 (09:00→21:15)
[2017-05-30] MEDS: PROPOFOL 1000 MG/100 ML INJ 100 ML IV PRN ×8 (09:40→20:14)
[2017-05-30] MEDS: FAMOTIDINE 20 MG/2 ML VIAL IV PUSH SCH (09:47)
[2017-05-30] MEDS: ASPIRIN 81 MG CHEW TAB CHEW SCH (09:47)
[2017-05-30] MEDS: CARVEDILOL 12.5 MG TAB PO SCH ×2 (09:47→21:14)
[2017-05-30] MEDS: DOCUSATE SODIUM 50 MG/SENNA 8.6 MG TAB PO SCH ×2 (09:47→21:15)
[2017-05-30] MEDS ORDERED: MIDAZOLAM 100 MG/100 ML INJ 100 ML IV PRN (10:00)
[2017-05-30] MEDS: LACTULOSE SYRUP 20 GM/30 ML CUP OG-TUBE SCH ×2 (10:00→20:58)
[2017-05-30] MEDS ORDERED: Vancomycin Consult Pharmacy 1 EA OTHER SCH (10:00)
--- NOTE | 2017-05-30 10:06 | HHI.CCPN ---
Subjective Remarks/Hospital Course 05/19: Is a 36-year-old male with a history of hypertension who is on vacation from the [place] area who did not take his antihypertensives today because he is on vacation, and was having sexual intercourse when he had sudden onset of severe substernal radiating to the back chest pain earlier today. 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 He was emergently transferred to [facility] for further management. I evaluated the patient on arrival to the ICU by EVAC. Patient denies abdominal pain. Still endorses chest pain although this is improving. Patient denies any other symptoms. CT chest abdomen pelvis was reviewed and reviewed with myself and Dr. Guzman and does demonstrate a type B dissection. 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 Initial laboratory evidence demonstrates a lactate of 1.3, creatinine 1.2, normal LFTs. 05/20: On home C Pap. Urine output 30 cc/h currently. Remains on esmolol and labetalol drips. Remains drowsy though arousable. +4.4 L 05/21: Resting comfortably on nasal cannula. Awake and alert currently. Denies any shortness of breath or chest pain currently. 05/22: AAO x3, resting comfortably. 05/23 Patient went into PEA arrest early this morning now sedated with Diprivan and intubated. Off Esmolol drip. 05/24 Patient is sedated with Diprivan and intubated. On Labetolol drip. MRI brain yesterday showed multiple small infracts, no hemorrhage. 05/25 Patient remains intubated and sedated. T: 100.5 last night. Renal function is worsening with Cr: 3.6 from 3.4 and UOP: 2650ml in 24 hrs. 05/26 No events overnight. Sedated and intubated. Afebrile. Cr: 3.62 , UOP: 1950ml in 24 hrs 05/27 Patient was extubated yesterday placed on BIPAP overnight. Cr: 3.42 today , UOP: 1800 ml in 24 hrs 05/28 Extubated yesterday and per report was compliant with Bipap overnight Remains on esmolol drip 200 mcg/kg/min and SBP in 140s. ZULY, probable ATN non- oliguric however I>>0 with significant intake from MIVF as well as 180 mL/hr from esmolol drip. IVF d/c per nephrology and transitioning off esmolol to minimize fluid. Lasix now per my discussion with Dr. Thornton. He is tachypneic, obtained ABG with hypercapnea on simple mask. Placing On Bipap. at bedside requesting eventual transfer to [place], though she realized he is not stable for that yet. 05/29: Remains on BiPAP since 299 with increasing respiratory rates. Will attempt a more aggressive diuresis. We started on esmolol drip due to persistent tachycardia and unable to reach target blood pressure and heart rate requirements. At high risk for reintubation. Subjective 05/30: Remained hypotensive overnight. This a.m. desaturated, tachypneic requiring high percent on BiPAP hence intubated by associate civil engineer. Will require bronchoscopy this afternoon. Continue with aggressive diuresis. Broad antibiotic coverage. Start tube feeding. The systolic blood pressure better controlled while intubated on propofol and fentanyl drips. Objective Vital Signs Date Time Temp Pulse Resp B/P (MAP) Pulse Ox O2 Delivery O2 Flow Rate FiO2 05/30/17 09:40 69 114/49 05/30/17 07:43 93 100 05/30/17 03:00 100.5 25 05/30/17 03:00 Bi-Pap 05/28/17 15:00 8.00 Intake and Output 05/30/17 05/30/17 05/30/17 07:59 15:59 23:59 Intake Total 990 ml Output Total 2400 ml Balance -1410 ml Result Diagram: 05/30/17 0300 05/30/17 0300 Other Results Microbiology Date/Time Source Procedure Growth Status 05/25/17 13:27 Blood Peripheral Aerobic Blood Culture - Preliminary NO GROWTH IN 4 DAYS Resulted 05/25/17 13:27 Blood Peripheral Anaerobic Blood Culture - Preliminary NO GROWTH IN 4 DAYS Resulted 05/23/17 05:30 Sputum Endotracheal Gram Stain - Final Complete 05/23/17 05:30 Sputum Culture - Final Staphylococcus Aureus Complete 05/25/17 12:30 Urine Catheterized Urine Urine Culture - Final NO GROWTH IN 48 HOURS. Complete Imaging Last Impressions Chest X-Ray 05/30/17 0600 Signed Impressions: Service Date/Time: Tuesday, May 30, 2017 04:26 - CONCLUSION: Bilateral pulmonary infiltrates with the right upper lobe component more pronounced from the prior study. Rudy Cervantes Jr., MD Lung Scan-V Nuclear Medicine 05/23/17 Signed Impressions: Service Date/Time: Tuesday, May 23, 2017 10:22 - CONCLUSION: Low probability of pulmonary embolism. Buddy Harrison MD FACR Lower Extremity Ultrasound 05/23/17 Signed Impressions: Service Date/Time: Tuesday, May 23, 2017 08:02 - CONCLUSION: Negative for deep venous thrombosis. Buddy Harrison MD FACR Head CT 05/23/17 Signed Impressions: Service Date/Time: Tuesday, May 23, 2017 03:56 - CONCLUSION: 1. Examination quality is degraded by motion artifact. 2. No definite acute finding is identified. There is a 3 mm punctate area of high density in the left frontal periventricular white matter. This could represent small focus of acute blood products. Suggest attention to this on followup imaging. Wiliam Buck MD Brain MRI 05/23/17 Signed Impressions: Service Date/Time: Tuesday, May 23, 2017 15:59 - CONCLUSION: 1. 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 2. No hemorrhage observe. 3. Pansinus disease. Rudy Cervantes Jr., MD Aorta CTA 05/23/17 Signed Impressions: Service Date/Time: Tuesday, May 23, 2017 03:58 - CONCLUSION: 1. 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 The dissection extends to the abdominal aorta and terminates in the common iliac arteries bilaterally. The abdominal vessels arise from both the true and false lumens and demonstrate good opacification. Suggest correlating with the patient's prior imaging study which documents the dissection. 2. 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 3. There is stranding of the periaortic fat adjacent to the arch aneurysm. 4. There are small bilateral pleural effusions, left larger than right, with bilateral volume loss and/or airspace consolidation bilaterally. Wiliam Buck MD Abdomen Ultrasound 05/23/17 Signed Impressions: Service Date/Time: Tuesday, May 23, 2017 17:22 - CONCLUSION: 1. Gall bladder wall thickening and possible pericholecystic fluid without evidence of gallstones. May consider perform hepatic biliary tract scan to evaluate for acalculous cholecystitis. 2. No focal abnormality seen within the liver. Rudy Pollock MD Objective Remarks GENERAL: 36-year-old AA male resting in bed orotracheally intubated SKIN: Warm and dry, adequately perfused. HEAD: Normocephalic. EYES: Pupils 3 mm and reactive. No scleral icterus. No injection or drainage. NECK: Supple, trachea midline. No JVD or lymphadenopathy. Right IJ CVL is clean dry and intact CARDIOVASCULAR: Distant. RRR. S1, S2 no Cerner. Cannot appreciate murmurs, clicks, gallops or rubs RESPIRATORY: Coarse rhonchorous crackles appreciated throughout all lung [place] anterior-posterior bilaterally. No wheezing GASTROINTESTINAL: Abdomen soft, non-tender, nondistended. Hypoactive bowel sounds are appreciated MUSCULOSKELETAL: No cyanosis. Edema 2+ bilateral upper and lower extremities NEURO: Currently sedated on propofol and fentanyl drips. Positive gag and corneal reflex. Positive cough. Withdraws to pain bilateral upper and lower extremities Urinary Catheter: Yes Assessment to: Continue Ledesma insert reason: ICU Pt Getting Diuretics Vascular Central Line Catheter: Yes Assessment to: Continue Date of Insertion: May 23, 2017 Line: Central Venous Catheter Side: Right Location: Internal, Jugular A/P Assessment and Plan Neuro/Psych: Bilateral frontal embolic CVA Currently on propofol drip at 50 mg/kg/min/fentanyl drips ordered for sedation/ analgesia while intubated Goal of RASS -2 Daily sedation vacation when appropriate Acetaminophen 650 mg by tube every 6 hours as needed fever Evaluated by neurology/Dr. Espinosa MRI brain 05/23 revealed bilateral frontal embolic CVA CT brain: There is a 3 mm punctate area of high density in the left frontal periventricular white matter. This could represent small focus of acute blood products. EEG : Mild diffuse encephalopathy, no seizure activity Continue aspirin 162 mg p.o. daily. Okayed with neurology. No anticoagulation planned in this A. fib identified PT/OT/ST evaluate and treat CV: Hypertensive emergency Acute type B aortic dissection Elevated troponin PEA cardiac arrest 05/23/17, secondary to obstructive sleep apnea/obesity hypoventilation syndrome with Bipap nonadherence. CTA stable. VQ scan negative . Hyperlipidemia Currently on clevidipine gtt drip at 21 mg an hour, esmolol drip at 20 mcg/kg/ min Currently on carvedilol 25 mg twice daily Diltiazem 90 mg every 6 hours Clonidine 0.3 mg every 8 hours Repeat echo 05/23: EF 60-65%, no RWMA Evaluated by cardiology, Dr. Bhakta on 05/24 due to troponin elevation. He attributed elevated troponin to PEA arrest, hypoxia, renal insufficiency. No further ischemic workup planned at this time. CTA chest: . 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 The dissection extends to the abdominal aorta and terminates in the common iliac arteries bilaterally. The abdominal vessels arise from both the true and false lumens and demonstrate good opacification. Vascular surgery is following- Dr. Guzman Continue atorvastatin 40 mg by mouth daily for dyslipidemia Pulm: Obstructive sleep apnea Obesity hypoventilation syndrome Acute hypercapnic respiratory failure intubated 05/30 PRVC 18/550/1.5/8/100 Ventilator bundle Albuterol/ipratropium aerosols q 4hours with albuterol q2 prn. V/Q scan: low prob PE CXR in am. 05/30 revealed bilateral pulmonary infiltrates/edema. Renal/: Acute kidney injury Likely secondary to ischemic ATN following cardiac arrest. He is nonoliguric however has been increasingly positive fluid balance. Discussed with nephrology. Furosemide 40 mg IV every 8 hours and attempt to diurese. -2500 cc past 24 hours Renal is following- Dr. Flannery US abdomen: No hydronephrosis. Check urine eosinophils and electrolytes GI: Elevated transaminases Hypoalbuminemia Start tube feeds with Nepro goal 50 cc an hour. Previously vital high-protein per nutrition recommendations: 70 cc hour Famotidine 20 mg by tube daily for GI prophylaxis Docusate/senna 1 tablet twice daily, polyethylene glycol 17 g twice daily and lactulose 30 cc twice daily for bowel regimen Glycerin suppository 1 today Monitor LFT's ( trending down),Hep profile is negative US abdomen: Gall bladder wall thickening and possible pericholecystic fluid without evidence of gallstones. Recommend HIDA scan if clinically indicated No evidence of focal abnormalities within liver Heme: Leukocytosis Microcytic anemia Monitor CBC VQ scan negative 05/23 BLE u/s negative for DVT 05/23 ID: MSSA pneumonia On ceftriaxone 05/25 #6. Previously on Zosyn 05/23-05/25. Abx day #8 for MSSA in sputum. Due to acute respiratory failure will restart piperacillin/tazobactam and add vancomycin Repeat UA and sputum cultures. Will check bronchoscopy washings today Pertinent: 05/30 -blood cultures 2 -pending 05/25 -blood cultures 2 -no growth to date 05/25 -urine culture -no growth to date 05/23 -sputum -MSSA 05/23 -blood cultures 2 -no growth today Endo: Euglycemic now requiring sliding scale insulin TSH 2.3 FEN: Hypokalemia Replace electrolytes as clinically indicated 30 mEq KCl 1 now. Recheck at noon. MSK: Elevated BMI Weight loss encouraged PROPH: SCDs /Heparin subcut q 8 hours for DVT prophylaxis. (Previous associate civil engineer documented discussion with Dr. Guzman who would be amenable to anticoagulation if felt to be indicated for stroke, Dr. Espinosa states currently recommends ASA at this time. ). ACCESS R IJ CVL 05/23 #8. FULL CODE updated at bedside. Discussed with bedside RN. Critical Care: The total critical care time was 30 minutes. Time to perform other separately billable procedures was not included in the critical care time. Landen Sharp MD May 30, 2017 10:06
[2017-05-30] MEDS ORDERED: GLYCERIN ADULT 2 GM SUPP RECTAL ONE (10:15)
[2017-05-30] MEDS ORDERED: PILL SPLITTER OTHER PRN (10:30)
[2017-05-30] MEDS: fentaNYL DRIP 250 ML IV PRN (10:46)
--- NOTE | 2017-05-30 10:54 | RADRPT ---
EXAM DATE/TIME: 05/30/2017 10:07 [facility] COMPARISON: No previous studies available for comparison. INDICATIONS : Confirm nasogastric tube placement. MEDICAL HISTORY : None. SURGICAL HISTORY : None. ENCOUNTER: Initial ACUITY: 1 week PAIN SCORE: Non-responsive. LOCATION: Abdomen. FINDINGS: An NG tube is noted and the distal tip overlies expect location of the distal stomach/proximal duoden al region. There is diffuse gaseous distention of small bowel and air is seen throughout mildly diste nded large bowel. There is consolidation in the left lower lobe with air bronchogram formation seen. CONCLUSION: NG tube as above. Left lower lobe consolidation. Dilated bowel loops. Eric Be MD on May 30, 2017 at 10:52 Board Certified Radiologist. This report was verified electronically.
[2017-05-30] MEDS ORDERED: DEXTROSE 50% IN WATER 50 ML VIAL(D50) IV PUSH PRN (11:00)
[2017-05-30] MEDS ORDERED: GLUCAGON 1 MG/ML VIAL OTHER PRN (11:00)
[2017-05-30] MEDS: CHLORHEXIDINE 0.12% (ORAL KIT) 15 ML CUP MT SCH ×2 (11:02→19:33)
--- NOTE | 2017-05-30 11:44 | OTSOAPIP ---
RECEIVED OCCUPATIONAL THERAPY ORDERS FROM DR. MENDOZA. SPOKE WITH SAUL CONDON WHO REQUESTS TO HOLD EVALUATION PATIENT WAS REINTUBATED THIS MORNING AND IS NOT STABLE. RN STATES SHE WILL REQUEST NEW RESTART ORDERS FROM PHYSICIAN FOR OCCUPATIONAL THERAPY ONCE PATIENT IS STABLE. INTERDISCIPLINARY COMMUNICATION: REVIEWED ELECTRONIC MEDICAL RECORD, SPOKE WITH SAUL CONDON Therapist: Suly Gonzalez, OTR/L Signature on file
[2017-05-30] MEDS: POTASSIUM CHLOR 10 MEQ PREMIX 100 ML IV SCH ×3 (11:48→15:50)
[2017-05-30] MEDS ORDERED: VANCOMYCIN INJ 2,000 MG in SODIUM CHLORID 0.9% 500 ML INJ 500 ML IV ONE (12:00)
[2017-05-30] MEDS: PIPERACIL-TAZO 3.375 GM PREMIX 50 ML IV SCH ×2 (12:00→18:42)
[2017-05-30] MEDS: INSULIN NovoLIN REGULAR SUPPLEMENTAL SCALE SQ SCH ×2 (12:00→18:00)
[2017-05-30] MEDS ORDERED: ROCURONIUM INJ 50 MG/5 ML VIAL IV ONE (12:45)
[2017-05-30 13:27] LABS: BILIRUBIN, URINE NEG (NEG); BLOOD, URINE MOD (NEG); GLUCOSE,URINE NEG (NEG); HYALINE CAST, URINE 25 /lpf (RARE); KETONE, URINE NEG (NEG); MUCUS URINE FEW /lpf (OCC); NITRITE,URINE NEG (NEG); SQUAMOUS EPITHELIAL CELL URINE 1 /hpf (0-5); URINE COLOR YELLOW (YELLW/STRAW); URINE LEUKOCYTE ESTERASE NEG (NEG)
--- NOTE | 2017-05-30 13:52 | HHI.NPPN ---
Subjective History of Present Illness 36 year old with Aortic dissection ARF Additional Remarks Patient was reintubated Objective Data Data Vital Signs Date Time Temp Pulse Resp B/P (MAP) Pulse Ox O2 Delivery O2 Flow Rate FiO2 05/30/17 12:43 73 112/50 05/30/17 12:00 100 Mechanical Ventilator 100 05/30/17 12:00 100 05/30/17 12:00 98.6 69 18 114/51 (72) 100 05/30/17 11:02 69 122/65 05/30/17 11:00 69 05/30/17 09:40 69 114/49 05/30/17 07:43 93 100 05/30/17 07:25 86 100 05/30/17 07:00 85 Mechanical Ventilator 100 05/30/17 07:00 98.9 70 18 106/47 (66) 85 05/30/17 07:00 73 05/30/17 07:00 100 05/30/17 06:36 96 100 05/30/17 05:41 75 140/74 05/30/17 04:31 86 138/56 05/30/17 04:31 86 138/56 05/30/17 04:10 96 50 05/30/17 03:20 89 151/73 05/30/17 03:00 100.5 105 25 128/69 (88) 95 05/30/17 03:00 99 Bi-Pap 50 05/30/17 03:00 88 05/30/17 02:08 20 05/30/17 02:05 90 151/79 05/30/17 01:32 85 156/71 05/30/17 01:13 95 50 05/30/17 00:53 80 142/76 05/29/17 23:37 82 149/74 05/29/17 23:00 99.5 79 24 133/60 (84) 95 05/29/17 23:00 95 Bi-Pap 50 05/29/17 23:00 78 05/29/17 22:12 97 50 05/29/17 21:16 77 137/73 05/29/17 20:18 75 134/64 05/29/17 20:18 75 134/64 05/29/17 19:49 98 50 05/29/17 19:00 96 Bi-Pap 50 05/29/17 19:00 73 05/29/17 19:00 100.3 72 24 115/95 (102) 96 05/29/17 18:47 77 128/66 05/29/17 18:39 84 138/71 05/29/17 18:00 85 133/68 05/29/17 17:29 83 113/95 05/29/17 16:08 72 126/62 05/29/17 15:49 98 50 05/29/17 15:04 75 122/64 05/29/17 15:00 99.0 77 25 122/64 (83) 93 05/29/17 15:00 77 05/29/17 15:00 93 Bi-Pap 50 -: 05/30/17 0300 05/30/17 0300 Microbiology 05/30/17 Aerobic Blood Culture, Received Pending 05/30/17 Anaerobic Blood Culture, Received Pending 05/30/17 Aerobic Blood Culture, Received Pending 05/30/17 Anaerobic Blood Culture, Received Pending 05/30/17 Gram Stain, Received Pending 05/30/17 Sputum Culture, Received Pending Physical Exam General Appearance: Well Developed Eyes Eye Exam: Pupils Equal Neck Neck Exam: Neck Supple Pulmonary Resp Exam: Clear Bilaterally Cardiology CV Exam: Regular, Normal Sinus Rhythm Gastrointestinal/Abdomen GI Exam: Soft, Non-Tender Genitourinary Exam: Clear Urine Integumentary Skin Exam: Intact Extremeties Extremities Exam: Moderate Edema, Pitting Edema, Dependent Edema Assessment/Plan Problem List: (1) Acute renal failure ICD Codes: N17.9 - Acute kidney failure, unspecified Plan: He has large dissection of aorta continue to monitor he is passing urine , creatinine he did receive IV contrast repeat CTA Dissection up to Common Iliac arteries seen with true and false lumen perfused Cr 3.07.improved follow k 3.2 replace UOP: 4930 ml in 24hrs non oliguric Monitor intake and output Blood pressure was elevated, now on Coreg/clonidine/Labetalol/ Cardizem and prn Hydralazine Patient has good urine out. Creatinine is slightly better. K is low, will replace. (2) Dissection of aorta, thoracoabdominal ICD Codes: I71.03 - Dissection of thoracoabdominal aorta Status: Acute Plan: extubated vascular is following Renal arteries remains perfused Roz Flannery MD May 30, 2017 13:52
--- NOTE | 2017-05-30 14:44 | PD.PROCEDR ---
Procedure Note Procedure DATE: 05/30/2017 Fiberoptic bronchoscopy, diagnostic and therapeutic INDICATION: Acute hypoxemic respiratory failure CONSENT Informed consent for procedure was obtained from . DESCRIPTION OF THE PROCEDURE The patient was placed at 20 head of bed. Currently on ACV's 18/500/5/100. Sedated with propofol at 30 mcg/kg/min. Patient received 50 mg rocuronium IV 1. I enter the 8.0 ET tube with fiberoptic bronchoscope. Julee was sharp. The left main bronchus, lingula/upper lobe and left lower lobe were evaluated. Mucosa was normal. No signs of mucus or obstructing lesions were identified. The scope was withdrawn to julee. Identified the right upper lobe, middle and lower lobes with minimal use. Mucosa was normal. No obstructing lesions. I lavaged right lower lobe with 30 cc sterile saline. These were sent for samples ESTIMATED BLOOD LOSS: Minimal COMPLICATIONS: No apparent complications. STAT chest x-ray no pneumothorax Landen Sharp MD May 30, 2017 14:44
--- NOTE | 2017-05-30 16:53 | RADRPT ---
EXAM DATE/TIME: 05/30/2017 15:01 [facility] COMPARISON: CHEST SINGLE AP, May 30, 2017, 7:27. ABDOMEN SINGLE VIEW, May 30, 2017, 10:07. INDICATIONS : S/p bronchoscopy MEDICAL HISTORY : Hypertension. Renal failure, acute. SURGICAL HISTORY : hernia repair ENCOUNTER: Initial ACUITY: 1 week PAIN SCORE: Non-responsive. LOCATION: Bilateral abdomen FINDINGS: Single view chest is provided. There are perihilar infiltrates bilaterally. There are small bilateral effusions. No pneumothorax is evident post bronchoscopy. The ET tubes in good position. Right jugular central lines in good position. CONCLUSION: 1. Bilateral areas of perihilar infiltrate and consolidation with small bilateral effusions. 2. No pneumothorax identified. 3. Support equipment in satisfactory position Syed Harrison MD on May 30, 2017 at 16:50 Board Certified Radiologist. This report was verified electronically.
[2017-05-30] MEDS ORDERED: METOLAZONE 2.5 MG TAB PO ONE (17:30)
[2017-05-30] MEDS ORDERED: POTASSIUM CHLOR 40 MEQ PREMIX 100 ML IV ONE (19:15)
[2017-05-30] MEDS: ATORVASTATIN 40 MG TAB PO SCH (21:14)
[2017-05-30] MEDS: ACETAMINOPHEN 650 MG/20.3 ML UDC NG PRN (21:15)
[2017-05-30] MEDS: POLYETHYLENE GLYCOL 17 GM PKG NG SCH (21:17)
[2017-05-31] VITALS (18 sets, daily range): BP systolic 111–137; BP diastolic 51–68; PULSE 64–90; RESP 16–18; TEMP 99.6–102.5; O2SAT 89–98
[2017-05-31] MEDS: RESP: ALBUTEROL 2.5 MG/IPRATROPIUM 0.5 MG NEB (SCH) NEB ×6 (00:06→20:08)
[2017-05-31] MEDS: PROPOFOL 1000 MG/100 ML INJ 100 ML IV PRN ×10 (00:17→22:06)
[2017-05-31] MEDS: CLEVIDIPINE INJ 50 ML IV PRN ×6 (00:19→17:17)
[2017-05-31] MEDS: PIPERACIL-TAZO 3.375 GM PREMIX 50 ML IV SCH ×2 (00:20→05:23)
[2017-05-31] MEDS: DILTIAZEM HCL 90 MG TAB PO SCH ×5 (00:20→23:50)
[2017-05-31] MEDS: CHLORHEXIDINE GLUCONATE 2 % 1 PACK (2 CLOTHS) TOP SCH (04:00)
[2017-05-31 04:49] LABS: AUTOMATED NEUTROPHIL # 11.2 TH/MM3 (1.8-7.7); BASOPHIL # 0.1 TH/MM3 (0-0.2); BASOPHIL % 0.7 % (0.0-2.0); EOSINOPHIL # 0.5 TH/MM3 (0-0.4); EOSINOPHIL % 3.3 % (0.0-4.0); LYMPH % 13.9 % (9.0-44.0); LYMPHOCYTE # 2.1 TH/MM3 (1.0-4.8); MEAN PLATELET VOLUME 7.9 FL (7.0-11.0); MONO % 8.7 % (0.0-8.0); MONOCYTE # 1.3 TH/MM3 (0-0.9); NEUT % 73.4 % (16.0-70.0); PLATELET COUNT 283 TH/MM3 (150-450); WHITE BLOOD COUNT 15.3 TH/MM3 (4.0-11.0)
--- NOTE | 2017-05-31 05:17 | RADRPT ---
EXAM DATE/TIME: 05/31/2017 04:28 [facility] COMPARISON: CHEST SINGLE AP, May 30, 2017, 15:01. INDICATIONS : Short of breath. MEDICAL HISTORY : Hypertension. Renal failure, acute. SURGICAL HISTORY : hernia repair ENCOUNTER: Subsequent ACUITY: 1 week PAIN SCORE: 0/10 LOCATION: Bilateral chest FINDINGS: 2 portable frontal views of the chest show persistent bilateral pulmonary infiltrates. These are unch anged. No discrete effusions observed. Heart is at the upper limits of normal in terms of size. Tip o f the endotracheal tube 4 cm proximal to julee. Right sided central line. No pneumothorax. CONCLUSION: Unchanged bilateral pulmonary infiltrates. Rudy Cervantes Jr., MD on May 31, 2017 at 5:15 Board Certified Radiologist. This report was verified electronically.
[2017-05-31] MEDS: ESMOLOL DRIP INJ PREMIX 250 ML IV PRN ×2 (05:21→17:17)
[2017-05-31 05:25] LABS: HEMATOCRIT 21.7 % (39.0-51.0); HEMOGLOBIN 7.5 GM/DL (13.0-17.0); MEAN CELL VOLUME 80.4 FL (80.0-100.0); MEAN CORPUSCULAR HEMOGLOBIN 27.6 PG (27.0-34.0); MEAN CORPUSCULAR HGB CONC 34.3 % (32.0-36.0); RED CELL DISTRIBUTION WIDTH 15.8 % (11.6-17.2)
[2017-05-31] MEDS: ARTIFICIAL TEARS OPTH SOLN 15 ML BTL EACH EYE SCH ×3 (05:25→21:54)
[2017-05-31] MEDS: ACETAMINOPHEN 650 MG/20.3 ML UDC NG PRN (05:25)
[2017-05-31 05:26] LABS: ALBUMIN 2.3 GM/DL (3.4-5.0); ALKALINE PHOSPHATASE 84 U/L (45-117); ALT (GPT) 1519 U/L (12-78); AST (GOT) 2674 U/L (15-37); BICARBONATE 24.9 MEQ/L (21.0-32.0); BLOOD UREA NITROGEN 60 MG/DL (7-18); CALCIUM 7.9 MG/DL (8.5-10.1); CHLORIDE 106 MEQ/L (98-107); CREATININE 4.36 MG/DL (0.60-1.30); GLOMERULAR FILTRATION RATE 19 ML/MIN (>89); GLUCOSE,RANDOM 101 MG/DL (74-106); MAGNESIUM 2.2 MG/DL (1.5-2.5); PHOSPHORUS 3.2 MG/DL (2.5-4.9); SODIUM (NA) 141 MEQ/L (136-145); TOTAL BILIRUBIN ADULT 1.1 MG/DL (0.2-1.0)
[2017-05-31] MEDS: FUROSEMIDE 40 MG/4 ML VIAL IV PUSH SCH (05:26)
[2017-05-31] MEDS: HEPARIN SODIUM - SQ 10,000 UNITS/ML VIAL SQ SCH ×2 (05:26→21:41)
[2017-05-31] MEDS: cloNIDine HCL 0.3 MG TAB PO SCH ×3 (05:32→21:52)
[2017-05-31] MEDS ORDERED: POTASSIUM CHLOR 20 MEQ PREMIX 100 ML IV ONE ×2 (07:00→21:00)
[2017-05-31 07:50] LABS: RANDOM VANCOMYCIN 17.5 COMMENT; TOTAL PROTEIN 6.1 GM/DL (6.4-8.2)
[2017-05-31] MEDS: CARVEDILOL 12.5 MG TAB PO SCH ×2 (08:06→21:52)
[2017-05-31] MEDS: FAMOTIDINE 20 MG TAB NG SCH (08:06)
[2017-05-31] MEDS: DOCUSATE SODIUM 50 MG/SENNA 8.6 MG TAB PO SCH ×2 (08:07→21:52)
[2017-05-31] MEDS: CHLORHEXIDINE 0.12% (ORAL KIT) 15 ML CUP MT SCH ×2 (08:07→19:31)
[2017-05-31] MEDS: ASPIRIN 81 MG CHEW TAB CHEW SCH (08:07)
[2017-05-31] MEDS: POLYETHYLENE GLYCOL 17 GM PKG NG SCH ×2 (08:07→21:52)
[2017-05-31] MEDS: LACTULOSE SYRUP 20 GM/30 ML CUP OG-TUBE SCH ×4 (08:07→23:50)
[2017-05-31] MEDS: SODIUM CHLORIDE FLUSH BID IV FLUSH SCH (08:08)
[2017-05-31] MEDS: fentaNYL DRIP 250 ML IV PRN (08:34)
--- NOTE | 2017-05-31 08:44 | PD.PROCEDR ---
Central Line Procedure REASON FOR PROCEDURE Central venous access PROCEDURE PERFORMED Central line placement: Left IJ CVL CONSENT Informed consent for procedure was obtained. The risks and benefits of the procedure were discussed to include but limited to bleeding, clot formation, infection, and even . ANESTHESIA Local injection of 1% Lidocaine DESCRIPTION OF THE PROCEDURE The patient was placed in supine, mild Trendelenburg position. The area was exposed and cleansed with ChloraPrep, times two. Large sterile drape was used to cover the patient, with the site exposed, under sterile conditions including cap, face mask, sterile gown, and sterile gloves. On single attempt, the introducer needle was inserted with negative pressure in syringe and venous flash was obtained. The guide wire was then advanced without any restriction and the needle was removed. The dilator was used without any complications. Using Seldinger technique the abx coated triple lumen catheter was advanced over the guide wire to a depth of 20 centimeters. The guide wire was removed. All ports were aspirated with dark venous blood return and flushed easily with sterile saline. All ports were capped. Antibiotic disc was placed around central line at puncture site. The central line was secured to the skin with Stat lock. The area was bandaged with sterile see-through central line bandage. RADIOLOGICAL DATA Ultrasound guidance was used to locate Left IJ. Doppler/color flow was used to confirm venous flow. COMPLICATIONS: No apparent complications ESTIMATED BLOOD LOSS: Less than 1 cc. Landen Sharp MD May 31, 2017 08:44
--- NOTE | 2017-05-31 08:44 | HHI.CCPN ---
Subjective Remarks/Hospital Course 05/19: Is a 36-year-old male with a history of hypertension who is on vacation from the [place] area who did not take his antihypertensives today because he is on vacation, and was having sexual intercourse when he had sudden onset of severe substernal radiating to the back chest pain earlier today. 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 He was emergently transferred to [facility] for further management. I evaluated the patient on arrival to the ICU by EVAC. Patient denies abdominal pain. Still endorses chest pain although this is improving. Patient denies any other symptoms. CT chest abdomen pelvis was reviewed and reviewed with myself and Dr. Guzman and does demonstrate a type B dissection. 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 Initial laboratory evidence demonstrates a lactate of 1.3, creatinine 1.2, normal LFTs. 05/20: On home C Pap. Urine output 30 cc/h currently. Remains on esmolol and labetalol drips. Remains drowsy though arousable. +4.4 L 05/21: Resting comfortably on nasal cannula. Awake and alert currently. Denies any shortness of breath or chest pain currently. 05/22: AAO x3, resting comfortably. 05/23 Patient went into PEA arrest early this morning now sedated with Diprivan and intubated. Off Esmolol drip. 05/24 Patient is sedated with Diprivan and intubated. On Labetolol drip. MRI brain yesterday showed multiple small infracts, no hemorrhage. 05/25 Patient remains intubated and sedated. T: 100.5 last night. Renal function is worsening with Cr: 3.6 from 3.4 and UOP: 2650ml in 24 hrs. 05/26 No events overnight. Sedated and intubated. Afebrile. Cr: 3.62 , UOP: 1950ml in 24 hrs 05/27 Patient was extubated yesterday placed on BIPAP overnight. Cr: 3.42 today , UOP: 1800 ml in 24 hrs 05/28 Extubated yesterday and per report was compliant with Bipap overnight Remains on esmolol drip 200 mcg/kg/min and SBP in 140s. ZULY, probable ATN non- oliguric however I>>0 with significant intake from MIVF as well as 180 mL/hr from esmolol drip. IVF d/c per nephrology and transitioning off esmolol to minimize fluid. Hugo now per my discussion with Dr. Thornton. He is tachypneic, obtained ABG with hypercapnea on simple mask. Placing On Bipap. at bedside requesting eventual transfer to [place], though she realized he is not stable for that yet. 05/29: Remains on BiPAP since 299 with increasing respiratory rates. Will attempt a more aggressive diuresis. We started on esmolol drip due to persistent tachycardia and unable to reach target blood pressure and heart rate requirements. At high risk for reintubation. 05/30: Remained hypotensive overnight. This a.m. desaturated, tachypneic requiring high percent on BiPAP hence intubated by foundation relations director. Will require bronchoscopy this afternoon. Continue with aggressive diuresis. Broad antibiotic coverage. Start tube feeding. The systolic blood pressure better controlled while intubated on propofol and fentanyl drips. Subjective 05/31: T-max 102.8. Currently 99.6. FiO2 down to 80%. The same noted elevated transaminases AST of 2674. ALT of 1590. Creatinine is increased to 3.07 to 4.36. +2 L past 24 hours. One bowel movement. Noted prior gallbladder wall thickening on previous ultrasound. We will repeat today Objective Vital Signs Date Time Temp Pulse Resp B/P (MAP) Pulse Ox O2 Delivery O2 Flow Rate FiO2 05/31/17 07:44 96 80 05/31/17 05:21 68 102/46 05/31/17 03:00 99.6 18 05/31/17 03:00 Mechanical Ventilator 05/28/17 15:00 8.00 Intake and Output 05/31/17 05/31/17 06/01/17 08:00 16:00 00:00 Intake Total 1586 ml Output Total 1200 ml Balance 386 ml Result Diagram: 05/31/17 0420 05/31/17 0420 Other Results Microbiology Date/Time Source Procedure Growth Status 05/30/17 12:55 Blood Peripheral Aerobic Blood Culture Pending Received 05/30/17 12:55 Blood Peripheral Anaerobic Blood Culture Pending Received 05/30/17 14:39 Bronchial Washings Right Lower Lobe Fungal Smear Pending Received 05/30/17 14:39 Bronchial Washings Right Lower Lobe Fungal Culture Pending Received 05/25/17 12:30 Urine Catheterized Urine Urine Culture - Final NO GROWTH IN 48 HOURS. Complete Imaging Last Impressions Chest X-Ray 05/31/17 0600 Signed Impressions: Service Date/Time: Wednesday, May 31, 2017 04:28 - CONCLUSION: Unchanged bilateral pulmonary infiltrates. Rudy Cervantes Jr., MD Abdomen X-Ray 05/30/17 0000 Signed Impressions: Service Date/Time: Tuesday, May 30, 2017 10:07 - CONCLUSION: NG tube as above. Left lower lobe consolidation. Dilated bowel loops. Eric Be MD Lung Scan-V Nuclear Medicine 05/23/17 0000 Signed Impressions: Service Date/Time: Tuesday, May 23, 2017 10:22 - CONCLUSION: Low probability of pulmonary embolism. Buddy Harrison MD FACR Lower Extremity Ultrasound 05/23/17 0000 Signed Impressions: Service Date/Time: Tuesday, May 23, 2017 08:02 - CONCLUSION: Negative for deep venous thrombosis. Buddy Harrison MD FACR Head CT 05/23/17 0000 Signed Impressions: Service Date/Time: Tuesday, May 23, 2017 03:56 - CONCLUSION: 1. Examination quality is degraded by motion artifact. 2. No definite acute finding is identified. There is a 3 mm punctate area of high density in the left frontal periventricular white matter. This could represent small focus of acute blood products. Suggest attention to this on followup imaging. Wiliam Buck MD Brain MRI 05/23/17 0000 Signed Impressions: Service Date/Time: Tuesday, May 23, 2017 15:59 - CONCLUSION: 1. 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 2. No hemorrhage observe. 3. Pansinus disease. Rudy Cervantes Jr., MD Aorta CTA 05/23/17 0000 Signed Impressions: Service Date/Time: Tuesday, May 23, 2017 03:58 - CONCLUSION: 1. 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 The dissection extends to the abdominal aorta and terminates in the common iliac arteries bilaterally. The abdominal vessels arise from both the true and false lumens and demonstrate good opacification. Suggest correlating with the patient's prior imaging study which documents the dissection. 2. 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 3. There is stranding of the periaortic fat adjacent to the arch aneurysm. 4. There are small bilateral pleural effusions, left larger than right, with bilateral volume loss and/or airspace consolidation bilaterally. Wiliam Buck MD Abdomen Ultrasound 05/23/17 0000 Signed Impressions: Service Date/Time: Tuesday, May 23, 2017 17:22 - CONCLUSION: 1. Gall bladder wall thickening and possible pericholecystic fluid without evidence of gallstones. May consider perform hepatic biliary tract scan to evaluate for acalculous cholecystitis. 2. No focal abnormality seen within the liver. Rudy Pollock MD Objective Remarks GENERAL: 36-year-old AA male resting in bed orotracheally intubated SKIN: Warm and dry, adequately perfused. HEAD: Normocephalic. EYES: Pupils 3 mm and reactive. No scleral icterus. No injection or drainage. NECK: Supple, trachea midline. No JVD or lymphadenopathy. Right IJ CVL is clean dry and intact CARDIOVASCULAR: Distant. RRR. S1, S2 no S4. Cannot appreciate murmurs, clicks , gallops or rubs RESPIRATORY: Coarse rhonchorous crackles appreciated throughout all lung [place] anterior-posterior bilaterally. No wheezing GASTROINTESTINAL: Abdomen soft, non-tender, nondistended. Hypoactive bowel sounds are appreciated MUSCULOSKELETAL: No cyanosis. Edema 2+ bilateral upper and lower extremities NEURO: Currently sedated on propofol and fentanyl drips. Positive gag and corneal reflex. Positive cough. Withdraws to pain bilateral upper and lower extremities Urinary Catheter: Yes Assessment to: Continue Ledesma insert reason: ICU Pt Getting Diuretics Vascular Central Line Catheter: Yes Assessment to: Remove Date of Insertion: May 23, 2017 Line: Central Venous Catheter Side: Right Location: Internal, Jugular A/P Assessment and Plan Neuro/Psych: Bilateral frontal embolic CVA Currently on propofol drip at 50 mg/kg/min/fentanyl drips at 100 mcg an hour ordered for sedation/analgesia while intubated Goal of RASS -2 Daily sedation vacation when appropriate Acetaminophen 650 mg by tube every 6 hours as needed fever discontinued due to elevated transaminases Evaluated by neurology/Dr. Espinosa MRI brain 05/23 revealed bilateral frontal embolic CVA CT brain: There is a 3 mm punctate area of high density in the left frontal periventricular white matter. This could represent small focus of acute blood products. EEG : Mild diffuse encephalopathy, no seizure activity Continue aspirin 162 mg p.o. daily. Okayed with neurology. No anticoagulation planned unless A. fib identified PT/OT/ST evaluate and treat CV: Hypertensive emergency Acute type B aortic dissection Elevated troponin PEA cardiac arrest 05/23/17, secondary to obstructive sleep apnea/obesity hypoventilation syndrome with Bipap nonadherence. CTA stable. VQ scan negative . Hyperlipidemia Currently on clevidipine gtt drip at 5 mg an hour, esmolol drip at 20 mcg/kg/min Currently on carvedilol 25 mg twice daily Diltiazem 90 mg every 6 hours Clonidine 0.3 mg every 8 hours Repeat echo 05/23: EF 60-65%, no RWMA Evaluated by cardiology, Dr. Bhakta on 05/24 due to troponin elevation. He attributed elevated troponin to PEA arrest, hypoxia, renal insufficiency. No further ischemic workup planned at this time. CTA chest: . 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 The dissection extends to the abdominal aorta and terminates in the common iliac arteries bilaterally. The abdominal vessels arise from both the true and false lumens and demonstrate good opacification. Vascular surgery is following- Dr. Guzman Discontinue atorvastatin 40 mg by mouth daily for dyslipidemia due to elevated transaminases Pulm: Obstructive sleep apnea Obesity hypoventilation syndrome [facility] hypercapnic [facility] Ventilator bundle Albuterol/ipratropium aerosols q 4hours with albuterol q2 prn. V/Q scan: low prob PE CXR in am. 05/31 revealed bilateral pulmonary infiltrates/edema. Status post bronchoscopy 05/30 revealed no mucus plugging. Normal bronchial mucosa without lesions. No signs of bleeding. Sample sent from BAL right lower lobe. Renal/: Nonoliguric acute kidney injury Likely secondary to ischemic ATN following cardiac arrest. Discussed with nephrology. Furosemide 40 mg IV every 8 hours and attempt to diurese will hold secondary to increased creatinine to 4.36 from 3.07 +1900cc past 24 hours Renal is following- Dr. Flannery US abdomen: No hydronephrosis. GI: Elevated transaminases Hypoalbuminemia We will hold tube feeds with Nepro goal 50 cc an hour. Previously vital high- protein per nutrition recommendations: 70 cc hour Famotidine 20 mg by tube daily for GI prophylaxis written to switch to 10 mg twice daily by pharmacy Docusate/senna 1 tablet twice daily, polyethylene glycol 17 g twice daily and lactulose 30 cc twice daily for bowel regimen Glycerin suppository 1 day with positive results Monitor LFT's (trending up),Hep profile is negative US abdomen: Gall bladder wall thickening and possible pericholecystic fluid without evidence of gallstones. Recommend HIDA scan if clinically indicated No evidence of focal abnormalities within liver Repeat liver ultrasound today. GI consult. Heme: Leukocytosis Microcytic anemia Monitor CBC VQ scan negative 05/23 BLE u/s negative for DVT 05/23 ID: MSSA pneumonia On ceftriaxone 05/25- Previously on Zosyn 05/23-05/25. Abx day #9 for MSSA in sputum. Due to acute respiratory failure will restart piperacillin/tazobactam and add vancomycin day #2 started 3 Repeat UA and sputum cultures. Will check bronchoscopy washings today Pertinent: 05/30 -bronchoscopy -pending 05/30 -sputum -rare WBC/budding yeast 05/30 -blood cultures 2 -pending 05/25 -blood cultures 2 -no growth to date 05/25 -urine culture -no growth to date 05/23 -sputum -MSSA 05/23 -blood cultures 2 -no growth to date Endo: Currently on sliding scale insulin NovUlin R medium regimen every 6 hours sliding scale. No coverage past 24 hours TSH 2.3 FEN: Hypokalemia Replace electrolytes as clinically indicated 20 mEq KCl 1 now. With 30 mEq IV 1 now. Recheck this afternoon and replace as clinically indicated MSK: Elevated BMI Weight loss encouraged PROPH: SCDs /Heparin subcut q 12 hours for DVT prophylaxis. (Previous foundation relations director documented discussion with Dr. Guzman who would be amenable to anticoagulation if felt to be indicated for stroke, Dr. Espinosa states currently recommends ASA at this time. ). ACCESS R IJ CVL 05/23 #9. We will remove today 05/31 Left IJ CVL 05/31 day #1. Critical Care: The total critical care time was 30 minutes. Time to perform other separately billable procedures was not included in the critical care time. Landen Sharp MD May 31, 2017 08:44
[2017-05-31] MEDS ORDERED: SODIUM CHLORIDE 0.9% FLUSH 10 ML FLUSH IV FLUSH PRN (08:45)
[2017-05-31] MEDS: SODIUM CHLORIDE 0.9% FLUSH 10 ML FLUSH IV FLUSH SCH (09:00)
[2017-05-31 09:53] LABS: BANDS 2 % (0-6); CORRECTED NUCLEATED RBC 1 /100 WBC (0-0); LYMPHOCYTES 16 % (9-44); METAMYELOCYTES 1 % (0-1); MONOCYTES 2 % (0-8); NEUTROPHIL # MANUAL DIFF 11.8 TH/MM3 (1.8-7.7); NUCLEATED RED BLOOD CELL 1 (0-0); POLYS (SEG NEUTROPHILS) 74 % (16-70)
--- NOTE | 2017-05-31 09:56 | RADRPT ---
EXAM DATE/TIME: 05/31/2017 09:14 [place] COMPARISON: CHEST SINGLE AP, May 31, 2017, 4:28. INDICATIONS : Post central line placement. MEDICAL HISTORY : Hypertension. Renal failure, acute. SURGICAL HISTORY : hernia repair. ENCOUNTER: Subsequent ACUITY: 1 day PAIN SCORE: Non-responsive. LOCATION: Bilateral chest FINDINGS: ETT is approximate 7 cm above the julee. Right IJ central line is stable. Interval placement of left IJ central line with tip somewhat obscured in the central SVC. Persistent bilateral and patchy airsp naeem consolidation which appears more prominent in the right mid to upper lung zones. Cardiomediastina l contours are stable. No significant pneumothorax. The remainder of the exam is unchanged. CONCLUSION: 1. Left IJ central line tip is obscured in the central SVC region. No significant pneumothorax. 2. ETT is 7 cm above the julee. 3. Remainder of the exam is unchanged. Andrew Kraft MD on May 31, 2017 at 9:52 Board Certified Radiologist. This report was verified electronically.
--- NOTE | 2017-05-31 10:10 | PD.CONS ---
HPI History of Present Illness This is a 36 year old male who presented with substernal chest pain radiating to back during sexual intercourse. He was found to have a Type B aortic dissection. Was also found to have CVA. Went into PEA and was intubated. Subsequently extubated and then reintubated after becoming hypotensive and desatting. His renal function is worsening. GI has been consulted for rising LFTs. Hx obtained from EMR. (Addie Springer) PFSH Past Medical History HTN CORI Past Surgical History repair inguinal hernia (Addie Springer) Coded Allergies: No Known Allergies (Unverified , 05/19/17) Family History none per EMR Social History occasional etoh no tobacco or illicit drug use (Addie Springer) Review of Systems unable to obtain (Addie Springer) GI Exam Vitals I&O Vital Signs Date Time Temp Pulse Resp B/P (MAP) Pulse Ox O2 Delivery O2 Flow Rate FiO2 05/31/17 07:44 96 80 05/31/17 05:21 68 102/46 05/31/17 05:20 69 102/46 05/31/17 04:00 80 05/31/17 04:00 69 106/51 05/31/17 03:37 93 80 05/31/17 03:00 99.6 67 18 111/51 (71) 92 05/31/17 03:00 92 Mechanical Ventilator 80 05/31/17 03:00 64 05/31/17 02:54 64 115/49 05/31/17 00:39 80 05/31/17 00:19 76 123/54 05/31/17 00:08 97 80 05/30/17 23:00 96 Mechanical Ventilator 80 05/30/17 23:00 72 05/30/17 23:00 100.4 74 18 110/52 (71) 96 05/30/17 22:04 71 109/46 05/30/17 21:39 94 80 05/30/17 20:14 68 108/49 05/30/17 20:00 80 05/30/17 19:00 80 05/30/17 19:00 102.8 68 18 108/48 (68) 89 05/30/17 19:00 68 108/48 05/30/17 19:00 68 108/48 05/30/17 19:00 89 Mechanical Ventilator 80 05/30/17 18:54 82 123/52 05/30/17 18:01 78 125/50 05/30/17 18:01 78 125/50 05/30/17 17:49 100 05/30/17 16:39 96 85 05/30/17 16:00 98.9 69 18 124/54 (77) 100 05/30/17 16:00 100 Mechanical Ventilator 100 05/30/17 15:00 76 05/30/17 14:20 99 100 05/30/17 12:43 73 112/50 05/30/17 12:00 100 Mechanical Ventilator 100 05/30/17 12:00 100 05/30/17 12:00 98.6 69 18 114/51 (72) 100 05/30/17 11:02 69 122/65 05/30/17 11:00 69 I/O 05/30/17 05/30/17 05/30/17 05/31/17 05/31/17 05/31/17 07:00 15:00 23:00 07:00 15:00 23:00 Intake Total 1040 ml 3571 ml 150 ml 1436 ml Output Total 2400 ml 1750 ml 1200 ml Balance -1360 ml 1821 ml 150 ml 236 ml Intake Oral 240 ml 0 ml 0 ml IV Total 800 ml 3447 ml 150 ml 1332 ml Tube Feeding 34 ml 104 ml Tube Irrigant 90 ml Output Urine Total 2400 ml 1750 ml 1200 ml # Bowel Movements 0 1 0 Imaging Last Impressions Chest X-Ray 05/31/17 0600 Signed Impressions: Service Date/Time: Wednesday, May 31, 2017 04:28 - CONCLUSION: Unchanged bilateral pulmonary infiltrates. Rudy Cervantes Jr., MD Abdomen X-Ray 05/30/17 0000 Signed Impressions: Service Date/Time: Tuesday, May 30, 2017 10:07 - CONCLUSION: NG tube as above. Left lower lobe consolidation. Dilated bowel loops. Eric Be MD Lung Scan- Nuclear Medicine 05/23/17 0000 Signed Impressions: Service Date/Time: Tuesday, May 23, 2017 10:22 - CONCLUSION: Low probability of pulmonary embolism. Buddy Harrison MD FACR Lower Extremity Ultrasound 05/23/17 0000 Signed Impressions: Service Date/Time: Tuesday, May 23, 2017 08:02 - CONCLUSION: Negative for deep venous thrombosis. Buddy Harrison MD FACR Head CT 05/23/17 0000 Signed Impressions: Service Date/Time: Tuesday, May 23, 2017 03:56 - CONCLUSION: 1. Examination quality is degraded by motion artifact. 2. No definite acute finding is identified. There is a 3 mm punctate area of high density in the left frontal periventricular white matter. This could represent small focus of acute blood products. Suggest attention to this on followup imaging. Wiliam Buck MD Brain MRI 05/23/17 0000 Signed Impressions: Service Date/Time: Tuesday, May 23, 2017 15:59 - CONCLUSION: 1. 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 2. No hemorrhage observe. 3. Pansinus disease. Rudy Cervantes Jr., MD Aorta CTA 05/23/17 0000 Signed Impressions: Service Date/Time: Tuesday, May 23, 2017 03:58 - CONCLUSION: 1. 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 The dissection extends to the abdominal aorta and terminates in the common iliac arteries bilaterally. The abdominal vessels arise from both the true and false lumens and demonstrate good opacification. Suggest correlating with the patient's prior imaging study which documents the dissection. 2. 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 3. There is stranding of the periaortic fat adjacent to the arch aneurysm. 4. There are small bilateral pleural effusions, left larger than right, with bilateral volume loss and/or airspace consolidation bilaterally. Wiliam Buck MD Abdomen Ultrasound 05/23/17 0000 Signed Impressions: Service Date/Time: Tuesday, May 23, 2017 17:22 - CONCLUSION: 1. Gall bladder wall thickening and possible pericholecystic fluid without evidence of gallstones. May consider perform hepatic biliary tract scan to evaluate for acalculous cholecystitis. 2. No focal abnormality seen within the liver. Rudy Pollock MD Laboratory Test 05/30/17 11:22 05/30/17 14:39 05/30/17 18:03 05/31/17 04:20 Urine Color YELLOW Urine Turbidity CLEAR Urine pH 5.0 Urine Specific [place] 1.012 Urine Protein TRACE mg/dL Urine Glucose (UA) NEG mg/dL Urine Ketones NEG mg/dL Urine Occult Blood MOD Urine Nitrite NEG Urine Bilirubin NEG Urine Urobilinogen LESS THAN 2.0 MG/DL Urine Leukocyte Esterase NEG Urine RBC 57 /hpf Urine WBC 2 /hpf Urine Squamous Epithelial Cells 1 /hpf Urine Hyaline Casts 25 /lpf Urine Mucus FEW /lpf Microscopic Urinalysis Comment CATH-CULT NOT IND Bronchoalveolar Lavage WBC 2236 /MM3 Bronchoalveolar Lavage RBC 1481 /MM3 Bronchoalveolar Lavage Neutrophils 95 % Bronchoalveolar Lavage Lymphocytes 3 % Bronchoalveolar Lavage Eosinophils 1 % Bronchoalveolar Lavage Histiocytes 1 % Bronchoalveolar Lavage Diff Comment Lavage Fluid Total Volume 11.0 ML Lavage Fluid Total WBC Count 24.600 MILLION Potassium Level 3.1 MEQ/L 3.3 MEQ/L White Blood Count 15.3 TH/MM3 Red Blood Count 2.70 MIL/MM3 Hemoglobin 7.5 GM/DL Hematocrit 21.7 % Mean Corpuscular Volume 80.4 FL Mean Corpuscular Hemoglobin 27.6 PG Mean Corpuscular Hemoglobin Concent 34.3 % Red Cell Distribution Width 15.8 % Platelet Count 283 TH/MM3 Mean Platelet Volume 7.9 FL Neutrophils (%) (Auto) 73.4 % Lymphocytes (%) (Auto) 13.9 % Monocytes (%) (Auto) 8.7 % Eosinophils (%) (Auto) 3.3 % Basophils (%) (Auto) 0.7 % Neutrophils # (Auto) 11.2 TH/MM3 Lymphocytes # (Auto) 2.1 TH/MM3 Monocytes # (Auto) 1.3 TH/MM3 Eosinophils # (Auto) 0.5 TH/MM3 Basophils # (Auto) 0.1 TH/MM3 CBC Comment AUTO DIFF Differential Total Cells Counted 100 Neutrophils % (Manual) 74 % Band Neutrophils % 2 % Lymphocytes % 16 % Monocytes % 2 % Eosinophils % 5 % Neutrophils # (Manual) 11.8 TH/MM3 Metamyelocytes 1 % Nucleated Red Blood Cells 1 /100 WBC Differential Comment FINAL DIFF MANUAL Platelet Estimate NORMAL Platelet Morphology Comment NORMAL Hematology Comments Blood Urea Nitrogen 60 MG/DL Creatinine 4.36 MG/DL Random Glucose 101 MG/DL Total Protein 6.1 GM/DL Albumin 2.3 GM/DL Calcium Level 7.9 MG/DL Phosphorus Level 3.2 MG/DL Magnesium Level 2.2 MG/DL Alkaline Phosphatase 84 U/L Aspartate Amino Transf (AST/SGOT) 2674 U/L Alanine Aminotransferase (ALT/SGPT) 1519 U/L Total Bilirubin 1.1 MG/DL Sodium Level 141 MEQ/L Chloride Level 106 MEQ/L Carbon Dioxide Level 24.9 MEQ/L Anion Gap 10 MEQ/L Estimat Glomerular Filtration Rate 19 ML/MIN Random Vancomycin Level 17.5 COMMENT Test 05/31/17 08:00 05/31/17 09:37 Blood Gas Puncture Site RT RADIAL Blood Gas Patient Temperature 98.6 Blood Gas HCO3 23 mmol/L Blood Gas Base Excess 0.1 mmol/L Blood Gas Oxygen Saturation 94 % Arterial Blood pH 7.48 Arterial Blood Partial Pressure CO2 31 mmHg Arterial Blood Partial Pressure O2 104 mmHg Arterial Blood Oxygen Content 9.9 Vol % Arterial Blood Carboxyhemoglobin 1.2 % Arterial Blood Methemoglobin 2.8 % Blood Gas Hemoglobin 7.3 G/DL Oxygen Delivery Device VENTILATOR Blood Gas Ventilator Setting PRVC/18/575/1.5/+8 Blood Gas Inspired Oxygen 80 % Date/Time Source Procedure Growth Status 05/30/17 12:55 Blood Peripheral Aerobic Blood Culture Pending Received 05/30/17 12:55 Blood Peripheral Anaerobic Blood Culture Pending Received 05/30/17 14:39 Bronchial Washings Right Lower Lobe Fungal Smear - Final RARE BUDDING YEAST CELLS Resulted 05/30/17 14:39 Bronchial Washings Right Lower Lobe Fungal Culture Pending Resulted 05/25/17 12:30 Urine Catheterized Urine Urine Culture - Final NO GROWTH IN 48 HOURS. Complete Physical Examination HEENT: normocephalic; atraumatic; no jaundice. intubated CHEST: coarse CARDIAC: RRR ABDOMEN: Soft,obese, nontender; no hepatosplenomegaly; bowel sounds soft EXTREMITIES: No clubbing, cyanosis,+ BLE edema. SKIN: Normal; no rash; no jaundice. 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 LFTs were WNL on day of admission and have been trending up with sudden large increase today. US 05/23 showed GB wall t hickening and poss pericholecystic fluid, no stones. repeat US is pending. hepatitis panel neg. - bilat embolic CVA, HTN emergency, aortic dissection, PEA 05/23/17 2/2 CORI, per [facility] - await repeat US - liver w/u - supportive care - further recs to follow pt seen by myself and Dr Martin and this note is on his behalf (Addie Springer) Physician Comments Agree with above assessment and plan. Further recommendations to follow. Thank you for the consult. (Andressa Martin MD) Addie Springer May 31, 2017 10:10 Andressa Martin MD May 31, 2017 11:29
[2017-05-31 11:27] LABS: INTERNATIONAL NORMALIZED RATIO 1.3 RATIO; PROTHROMBIN TIME - PATIENT 12.9 SEC (9.8-11.6)
[2017-05-31] MEDS: PIPERACIL-TAZO 2.25 GM PREMIX 50 ML IV SCH ×2 (11:56→21:37)
[2017-05-31] MEDS: INSULIN NovoLIN REGULAR SUPPLEMENTAL SCALE SQ SCH ×3 (11:56→17:13)
--- NOTE | 2017-05-31 12:50 | HHI.NPPN ---
Subjective History of Present Illness 36 year old with Aortic dissection ARF Additional Remarks Patient remains intubated Objective Data Data 05/31/17 06/01/17 19:00 07:00 Intake Total 1461 ml Output Total 1200 ml Balance 261 ml Intake Oral 0 ml IV Total 1332 ml Tube Feeding 104 ml Blood Product IV Normal Saline Flush 25 ml Output Urine Total 1200 ml # Bowel Movements 0 Vital Signs Date Time Temp Pulse Resp B/P (MAP) Pulse Ox O2 Delivery O2 Flow Rate FiO2 05/31/17 12:36 83 18 125/63 97 05/31/17 12:21 82 18 125/65 95 05/31/17 12:06 101.6 79 18 122/62 97 05/31/17 12:00 100 05/31/17 11:05 97 Ventilator 85 05/31/17 11:00 102.4 81 18 120/53 (75) 98 127/62 (83) 05/31/17 11:00 98 Mechanical Ventilator 100 05/31/17 11:00 79 05/31/17 10:20 72 120/58 05/31/17 10:14 92 100 05/31/17 10:00 100 05/31/17 08:00 80 05/31/17 08:00 101.6 69 18 121/52 (75) 95 05/31/17 07:44 96 80 05/31/17 07:00 95 Mechanical Ventilator 80 05/31/17 07:00 69 05/31/17 05:21 68 102/46 05/31/17 05:20 69 102/46 05/31/17 04:00 80 05/31/17 04:00 69 106/51 05/31/17 03:37 93 80 05/31/17 03:00 99.6 67 18 111/51 (71) 92 05/31/17 03:00 92 Mechanical Ventilator 80 05/31/17 03:00 64 05/31/17 02:54 64 115/49 05/31/17 00:39 80 05/31/17 00:19 76 123/54 05/31/17 00:08 97 80 05/30/17 23:00 96 Mechanical Ventilator 80 05/30/17 23:00 72 05/30/17 23:00 100.4 74 18 110/52 (71) 96 05/30/17 22:04 71 109/46 05/30/17 21:39 94 80 05/30/17 20:14 68 108/49 05/30/17 20:00 80 05/30/17 19:00 80 05/30/17 19:00 102.8 68 18 108/48 (68) 89 05/30/17 19:00 68 108/48 05/30/17 19:00 68 108/48 05/30/17 19:00 89 Mechanical Ventilator 80 05/30/17 18:54 82 123/52 05/30/17 18:01 78 125/50 05/30/17 18:01 78 125/50 05/30/17 17:49 100 05/30/17 16:39 96 85 05/30/17 16:00 98.9 69 18 124/54 (77) 100 05/30/17 16:00 100 Mechanical Ventilator 100 05/30/17 15:00 76 05/30/17 14:20 99 100 -: 05/31/17 0420 05/31/17 0420 Microbiology 05/30/17 Aerobic Blood Culture - Preliminary, Resulted NO GROWTH IN 1 DAY 05/30/17 Anaerobic Blood Culture - Preliminary, Resulted NO GROWTH IN 1 DAY 05/30/17 Aerobic Blood Culture - Preliminary, Resulted NO GROWTH IN 1 DAY 05/30/17 Anaerobic Blood Culture - Preliminary, Resulted NO GROWTH IN 1 DAY 05/30/17 Fungal Smear - Final, Resulted RARE BUDDING YEAST CELLS 05/30/17 Fungal Culture, Resulted Pending 05/30/17 Acid Fast Stain, Received Pending 05/30/17 Mycobacterial Culture, Received Pending 05/30/17 Gram Stain - Final, Resulted 05/30/17 Bronchial Culture, Resulted Pending Physical Exam General Appearance: Well Developed Eyes Eye Exam: Pupils Equal Neck Neck Exam: Neck Supple Pulmonary Resp Exam: Clear Bilaterally Cardiology CV Exam: Regular, Normal Sinus Rhythm Gastrointestinal/Abdomen GI Exam: Soft, Non-Tender Genitourinary Exam: Clear Urine Integumentary Skin Exam: Intact Extremeties Extremities Exam: Moderate Edema, Pitting Edema, Dependent Edema Assessment/Plan Problem List: (1) Acute renal failure ICD Codes: N17.9 - Acute kidney failure, unspecified Plan: He has large dissection of aorta continue to monitor he is passing urine , creatinine he did receive IV contrast repeat CTA Dissection up to Common Iliac arteries seen with true and false lumen perfused Cr 4.36 stopped Lasix as possibly contributing non oliguric Monitor intake and output Blood pressure was elevated, now on Coreg/clonidine/Labetalol/ Cardizem and prn Hydralazine Patient has good urine out. Creatinine is slightly better. K is low, replaced. Inc LFT may try Lasix 40 mg IV q 12 d/w dr. Sharp (2) Dissection of aorta, thoracoabdominal ICD Codes: I71.03 - Dissection of thoracoabdominal aorta Status: Acute Plan: extubated vascular is following Renal arteries remains perfused Roz Flannery MD May 31, 2017 12:50
--- NOTE | 2017-05-31 15:44 | RADRPT ---
EXAM DATE/TIME: 05/31/2017 14:40 [facility] COMPARISON: No previous studies available for comparison. INDICATIONS : Elevated transaminases since last exam. MEDICAL HISTORY : Aortic dissection. Inguinal hernia. CVA. SURGICAL HISTORY : None. ENCOUNTER: Subsequent ACUITY: 1 day PAIN SCORE: Nonresponsive. LOCATION: Bilateral upper quadrant MEASUREMENTS: LIVER: 18.8 cm length COMMON DUCT: 5 mm RIGHT KIDNEY: 12.5 x 7.1 x 6.5 cm SPLEEN: Not seen FINDINGS: LIVER: Liver is enlarged and demonstrates diffuse increased echogenicity. COMMON DUCT: No intraluminal mass or stone visualized. GALLBLADDER: Gallbladder is again contracted with diffuse wall thickening measuring up to 11 mm with trace pericho lecystic fluid. No echogenic or shadowing stones. PANCREAS: The visualized portions are within normal limits. RIGHT KIDNEY: No hydronephrosis, stone or mass. SPLEEN: Not imaged. CONCLUSION: 1. Interval apparent hepatomegaly with diffusely increased hepatic echogenicity. Given the acuity of findings, findings may reflect acute hepatitis or congestive hepatopathy. 2. Persistently contracted gallbladder which accentuates the gallbladder wall with persistent gallbla dder wall thickening and trace pericholecystic fluid. These findings are commonly seen in the setting of liver disease although differential considerations include acalculous cholecystitis. HIDA scan ma y be performed for better evaluation as clinically appropriate. 3. Andrew Kraft MD on May 31, 2017 at 15:37 Board Certified Radiologist. This report was verified electronically.
[2017-05-31] MEDS ORDERED: FUROSEMIDE 40 MG/4 ML VIAL IV PUSH SCH (18:00)
[2017-05-31 20:08] LABS: HEMOGLOBIN 10.3 GM/DL (13.0-17.0)
[2017-05-31] MEDS ORDERED: POTASSIUM CHLORIDE INJ 30 MEQ in SODIUM CHLORIDE 0.9% INJ 100 ML IV-CENTRAL ONE (20:30)
[2017-05-31] MEDS: MIDAZOLAM 100 MG/100 ML INJ 100 ML IV PRN (21:43)
[2017-05-31] MEDS ORDERED: POTASSIUM CHLOR 10 MEQ PREMIX 100 ML IV ONE (23:00)
[2017-06-01] VITALS (16 sets, daily range): BP systolic 103–133; BP diastolic 57–84; PULSE 64–78; RESP 16; TEMP 98.6–99.9; O2SAT 89–98
[2017-06-01] MEDS: PROPOFOL 1000 MG/100 ML INJ 100 ML IV PRN ×4 (00:04→09:41)
[2017-06-01] MEDS: CLEVIDIPINE INJ 50 ML IV PRN ×5 (00:04→16:45)
[2017-06-01 00:25] LABS: AMORPHOUS SEDIMENT, URINE RARE; BILIRUBIN, URINE NEG (NEG); BLOOD, URINE MOD (NEG); GLUCOSE,URINE NEG (NEG); KETONE, URINE NEG (NEG); NITRITE,URINE NEG (NEG); URINE COLOR YELLOW (YELLW/STRAW); URINE LEUKOCYTE ESTERASE NEG (NEG)
[2017-06-01] MEDS: RESP: ALBUTEROL 2.5 MG/IPRATROPIUM 0.5 MG NEB (SCH) NEB ×6 (00:29→19:55)
[2017-06-01] MEDS: fentaNYL DRIP 250 ML IV PRN ×3 (01:59→18:17)
[2017-06-01] MEDS: CHLORHEXIDINE GLUCONATE 2 % 1 PACK (2 CLOTHS) TOP SCH (04:00)
--- NOTE | 2017-06-01 05:11 | RADRPT ---
EXAM DATE/TIME: 06/01/2017 03:13 [facility] COMPARISON: CHEST SINGLE AP, May 31, 2017, 9:14. INDICATIONS : Shortness of breath. MEDICAL HISTORY : Hypertension. Renal failure, acute. Aortic dissection. Inguinal hernia. CVA SURGICAL HISTORY : Hernia repair ENCOUNTER: Subsequent ACUITY: 2 weeks PAIN SCORE: Non-responsive. LOCATION: Bilateral chest FINDINGS: A single portable frontal view the chest shows bilateral pulmonary infiltrates most pronounced within the right upper lobe. This is unchanged. No effusions. Heart is normal in size. Tip of endotracheal tube 3 cm from the julee. Left-sided central line and nasogastric tube. CONCLUSION: Unchanged bilateral pulmonary infiltrates. Rudy Cervantes Jr., MD on June 01, 2017 at 5:09 Board Certified Radiologist. This report was verified electronically.
[2017-06-01] MEDS: LACTULOSE SYRUP 20 GM/30 ML CUP OG-TUBE SCH ×3 (05:19→18:19)
[2017-06-01] MEDS: cloNIDine HCL 0.3 MG TAB PO SCH ×3 (05:20→22:05)
[2017-06-01] MEDS: ARTIFICIAL TEARS OPTH SOLN 15 ML BTL EACH EYE SCH ×3 (05:20→22:00)
[2017-06-01] MEDS: PIPERACIL-TAZO 2.25 GM PREMIX 50 ML IV SCH ×3 (05:20→22:07)
[2017-06-01] MEDS: INSULIN NovoLIN REGULAR SUPPLEMENTAL SCALE SQ SCH ×4 (05:20→18:00)
[2017-06-01] MEDS: DILTIAZEM HCL 90 MG TAB PO SCH ×3 (05:20→18:17)
[2017-06-01 06:21] LABS: AUTOMATED NEUTROPHIL # 11.9 TH/MM3 (1.8-7.7); BASOPHIL # 0.1 TH/MM3 (0-0.2); BASOPHIL % 0.6 % (0.0-2.0); EOSINOPHIL % 6.7 % (0.0-4.0); HEMATOCRIT 24.1 % (39.0-51.0); HEMOGLOBIN 7.8 GM/DL (13.0-17.0); LYMPH % 11.9 % (9.0-44.0); LYMPHOCYTE # 1.8 TH/MM3 (1.0-4.8); MEAN CELL VOLUME 81.1 FL (80.0-100.0); MEAN CORPUSCULAR HEMOGLOBIN 26.1 PG (27.0-34.0); MEAN CORPUSCULAR HGB CONC 32.2 % (32.0-36.0); MEAN PLATELET VOLUME 9.8 FL (7.0-11.0); MONO % 3.9 % (0.0-8.0); MONOCYTE # 0.6 TH/MM3 (0-0.9); NEUT % 76.9 % (16.0-70.0); PLATELET COUNT 391 TH/MM3 (150-450); RED BLOOD COUNT 2.97 MIL/MM3 (4.50-5.90); RED CELL DISTRIBUTION WIDTH 16.3 % (11.6-17.2); WHITE BLOOD COUNT 15.5 TH/MM3 (4.0-11.0)
[2017-06-01 07:45] LABS: BLOOD UREA NITROGEN 64 MG/DL (7-18); CREATININE 4.91 MG/DL (0.60-1.30); GLOMERULAR FILTRATION RATE 16 ML/MIN (>89)
[2017-06-01 07:46] LABS: ALBUMIN 2.3 GM/DL (3.4-5.0); ALKALINE PHOSPHATASE 113 U/L (45-117); GLUCOSE,RANDOM 86 MG/DL (74-106); MAGNESIUM 2.2 MG/DL (1.5-2.5); PHOSPHORUS 4.6 MG/DL (2.5-4.9); TOTAL PROTEIN 6.9 GM/DL (6.4-8.2)
[2017-06-01 07:47] LABS: ALT (GPT) 1741 U/L (12-78); AST (GOT) 1867 U/L (15-37); BICARBONATE 25.6 MEQ/L (21.0-32.0); CHLORIDE 104 MEQ/L (98-107); SODIUM (NA) 140 MEQ/L (136-145); TOTAL BILIRUBIN ADULT 2.5 MG/DL (0.2-1.0)
[2017-06-01 07:49] LABS: % SATURATION IRON PROFILE 28.6 % (20-50); FERRITIN 6155 NG/ML (26-388); IRON (FE) 76 MCG/DL (65-175); TOTAL IRON BINDING CAPACITY 266 MCG/DL (250-450)
[2017-06-01] MEDS ORDERED: POTASSIUM CHLOR 40 MEQ PREMIX 100 ML IV ONE ×2 (08:30→17:00)
[2017-06-01] MEDS: HEPARIN SODIUM - SQ 10,000 UNITS/ML VIAL SQ SCH ×2 (08:46→22:07)
[2017-06-01] MEDS: FAMOTIDINE 20 MG TAB NG SCH (08:46)
[2017-06-01] MEDS: ASPIRIN 81 MG CHEW TAB CHEW SCH (08:46)
[2017-06-01] MEDS: CARVEDILOL 12.5 MG TAB PO SCH ×2 (08:47→22:06)
[2017-06-01] MEDS: FUROSEMIDE 40 MG/4 ML VIAL IV PUSH SCH ×2 (08:47→18:18)
[2017-06-01] MEDS: POLYETHYLENE GLYCOL 17 GM PKG NG SCH ×2 (08:47→22:07)
[2017-06-01] MEDS: DOCUSATE SODIUM 50 MG/SENNA 8.6 MG TAB PO SCH ×2 (08:47→22:05)
[2017-06-01] MEDS: SODIUM CHLORIDE 0.9% FLUSH 10 ML FLUSH IV FLUSH SCH (08:48)
[2017-06-01] MEDS: CHLORHEXIDINE 0.12% (ORAL KIT) 15 ML CUP MT SCH ×2 (08:49→22:05)
[2017-06-01 08:52] LABS: BANDS 11 % (0-6); BASOPHILS 1 % (0-2); CORRECTED NUCLEATED RBC 3 /100 WBC (0-0); LYMPHOCYTES 11 % (9-44); MONOCYTES 2 % (0-8); NEUTROPHIL # MANUAL DIFF 11.5 TH/MM3 (1.8-7.7); NUCLEATED RED BLOOD CELL 3 (0-0); POLYS (SEG NEUTROPHILS) 63 % (16-70)
[2017-06-01] MEDS ORDERED: MINERAL OIL EMULSION 55% PO ONE (10:15)
[2017-06-01] MEDS ORDERED: GLYCERIN ADULT 2 GM SUPP RECTAL ONE (10:15)
[2017-06-01] MEDS ORDERED: METHYLNALTREXONE BROMIDE 12 MG/0.6 ML VIAL SQ ONE (10:15)
--- NOTE | 2017-06-01 10:17 | HHI.CCPN ---
Subjective Remarks/Hospital Course 05/19: Is a 36-year-old male with a history of hypertension who is on vacation from the [place] area who did not take his antihypertensives today because he is on vacation, and was having sexual intercourse when he had sudden onset of severe substernal radiating to the back chest pain earlier today. 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 He was emergently transferred to [facility] for further management. I evaluated the patient on arrival to the ICU by EVAC. Patient denies abdominal pain. Still endorses chest pain although this is improving. Patient denies any other symptoms. CT chest abdomen pelvis was reviewed and reviewed with myself and Dr. Guzman and does demonstrate a type B dissection. 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 Initial laboratory evidence demonstrates a lactate of 1.3, creatinine 1.2, normal LFTs. 05/20: On home C Pap. Urine output 30 cc/h currently. Remains on esmolol and labetalol drips. Remains drowsy though arousable. +4.4 L 05/21: Resting comfortably on nasal cannula. Awake and alert currently. Denies any shortness of breath or chest pain currently. 05/22: AAO x3, resting comfortably. 05/23 Patient went into PEA arrest early this morning now sedated with Diprivan and intubated. Off Esmolol drip. 05/24 Patient is sedated with Diprivan and intubated. On Labetolol drip. MRI brain yesterday showed multiple small infracts, no hemorrhage. 05/25 Patient remains intubated and sedated. T: 100.5 last night. Renal function is worsening with Cr: 3.6 from 3.4 and UOP: 2650ml in 24 hrs. 05/26 No events overnight. Sedated and intubated. Afebrile. Cr: 3.62 , UOP: 1950ml in 24 hrs 05/27 Patient was extubated yesterday placed on BIPAP overnight. Cr: 3.42 today , UOP: 1800 ml in 24 hrs 05/28 Extubated yesterday and per report was compliant with Bipap overnight Remains on esmolol drip 200 mcg/kg/min and SBP in 140s. ZULY, probable ATN non- oliguric however I>>0 with significant intake from MIVF as well as 180 mL/hr from esmolol drip. IVF d/c per nephrology and transitioning off esmolol to minimize fluid. Hugo now per my discussion with Dr. Thornton. He is tachypneic, obtained ABG with hypercapnea on simple mask. Placing On Bipap. at bedside requesting eventual transfer to [place], though she realized he is not stable for that yet. 05/29: Remains on BiPAP since 299 with increasing respiratory rates. Will attempt a more aggressive diuresis. We started on esmolol drip due to persistent tachycardia and unable to reach target blood pressure and heart rate requirements. At high risk for reintubation. 05/30: Remained hypotensive overnight. This a.m. desaturated, tachypneic requiring high percent on BiPAP hence intubated by ground host/hostess. Will require bronchoscopy this afternoon. Continue with aggressive diuresis. Broad antibiotic coverage. Start tube feeding. The systolic blood pressure better controlled while intubated on propofol and fentanyl drips. 05/31: T-max 102.8. Currently 99.6. FiO2 down to 80%. The same noted elevated transaminases AST of 2674. ALT of 1590. Creatinine is increased to 3.07 to 4.36. +2 L past 24 hours. One bowel movement. Noted prior gallbladder wall thickening on previous ultrasound. We will repeat today Subjective 06/01: T-max 102.5. Currently 98.9. Desaturate overnight resolved currently FiO2 of 80%. 4500 cc urine output. Creatinine continues to rise currently 4.9. CPK currently 6165. We will discontinue propofol with hepatomegaly, rhabdomyolysis possibly indicative propofol infusion syndrome. Objective Vital Signs Date Time Temp Pulse Resp B/P (MAP) Pulse Ox O2 Delivery O2 Flow Rate FiO2 06/01/17 09:41 62 117/58 06/01/17 08:03 93 Mechanical Ventilator 80 06/01/17 08:00 98.9 16 05/28/17 15:00 8.00 Intake and Output 06/01/17 06/01/17 06/02/17 08:00 16:00 00:00 Intake Total 2677.8 ml 97 ml Output Total 2150 ml Balance 527.8 ml 97 ml Result Diagram: 06/01/17 0440 06/01/17 0440 Other Results Microbiology Date/Time Source Procedure Growth Status 05/30/17 14:39 Bronchial Washings Right Lower Lobe Gram Stain - Final Complete 05/30/17 14:39 Bronchial Washings Right Lower Lobe Bronchial Culture - Final LIGHT GROWTH NORMAL RESPIRATORY FARIDA Complete 05/30/17 07:30 Sputum Endotracheal Gram Stain - Final Complete 05/30/17 07:30 Sputum Endotracheal Sputum Culture - Final HEAVY GROWTH NORMAL RESPIRATORY FARIDA Complete Imaging Last Impressions Chest X-Ray 05/31/17 0600 Signed Impressions: Service Date/Time: Wednesday, May 31, 2017 04:28 - CONCLUSION: Unchanged bilateral pulmonary infiltrates. Rudy Cervantes Jr., MD Abdomen X-Ray 05/30/17 0000 Signed Impressions: Service Date/Time: Tuesday, May 30, 2017 10:07 - CONCLUSION: NG tube as above. Left lower lobe consolidation. Dilated bowel loops. Eric Be MD Lung Scan-V Nuclear Medicine 05/23/17 0000 Signed Impressions: Service Date/Time: Tuesday, May 23, 2017 10:22 - CONCLUSION: Low probability of pulmonary embolism. Buddy Harrison MD FACR Lower Extremity Ultrasound 05/23/17 0000 Signed Impressions: Service Date/Time: Tuesday, May 23, 2017 08:02 - CONCLUSION: Negative for deep venous thrombosis. Buddy Harrison MD FACR Head CT 05/23/17 0000 Signed Impressions: Service Date/Time: Tuesday, May 23, 2017 03:56 - CONCLUSION: 1. Examination quality is degraded by motion artifact. 2. No definite acute finding is identified. There is a 3 mm punctate area of high density in the left frontal periventricular white matter. This could represent small focus of acute blood products. Suggest attention to this on followup imaging. Wiliam Buck MD Brain MRI 05/23/17 0000 Signed Impressions: Service Date/Time: Tuesday, May 23, 2017 15:59 - CONCLUSION: 1. 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 2. No hemorrhage observe. 3. Pansinus disease. Rudy Cervantes Jr., MD Aorta CTA 05/23/17 0000 Signed Impressions: Service Date/Time: Tuesday, May 23, 2017 03:58 - CONCLUSION: 1. 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 The dissection extends to the abdominal aorta and terminates in the common iliac arteries bilaterally. The abdominal vessels arise from both the true and false lumens and demonstrate good opacification. Suggest correlating with the patient's prior imaging study which documents the dissection. 2. 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 3. There is stranding of the periaortic fat adjacent to the arch aneurysm. 4. There are small bilateral pleural effusions, left larger than right, with bilateral volume loss and/or airspace consolidation bilaterally. Wiliam Buck MD Abdomen Ultrasound 05/23/17 0000 Signed Impressions: Service Date/Time: Tuesday, May 23, 2017 17:22 - CONCLUSION: 1. Gall bladder wall thickening and possible pericholecystic fluid without evidence of gallstones. May consider perform hepatic biliary tract scan to evaluate for acalculous cholecystitis. 2. No focal abnormality seen within the liver. Rudy Pollock MD Objective Remarks GENERAL: 36-year-old AA male resting in bed orotracheally intubated SKIN: Warm and dry, adequately perfused. HEAD: Normocephalic. EYES: Pupils 3 mm and reactive. No scleral icterus. No injection or drainage. NECK: Supple, trachea midline. No JVD or lymphadenopathy. Left IJ CVL is clean dry and intact CARDIOVASCULAR: Distant. RRR. S1, S2 no S4. Cannot appreciate murmurs, clicks , gallops or rubs RESPIRATORY: Coarse rhonchorous crackles appreciated throughout all lung [place] anterior-posterior bilaterally. No wheezing GASTROINTESTINAL: Abdomen soft, non-tender, nondistended. Hypoactive bowel sounds are appreciated MUSCULOSKELETAL: No cyanosis. Edema 2+ bilateral upper and lower extremities NEURO: Currently sedated on propofol and fentanyl drips. Positive gag and corneal reflex. Positive cough. 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 Currently on propofol drip at 50 mg/kg/min/fentanyl drips at 250 mcg an hour ordered for sedation/analgesia while intubated Switched to midazolam drip currently at 10 mg an hour and fentanyl drip currently at 3 and 50 mg an hour for sedation/analgesia while intubated Goal of RASS -2 Daily sedation vacation when appropriate Acetaminophen 650 mg by tube every 6 hours as needed fever discontinued due to elevated transaminases Evaluated by neurology/Dr. Espinosa MRI brain 05/23 revealed bilateral frontal embolic CVA CT brain: There is a 3 mm punctate area of high density in the left frontal periventricular white matter. This could represent small focus of acute blood products. EEG : Mild diffuse encephalopathy, no seizure activity Continue aspirin 162 mg p.o. daily. Okayed with neurology. No anticoagulation planned unless A. fib identified PT/OT/ST evaluate and treat CV: Hypertensive emergency Acute type B aortic dissection Elevated troponin PEA cardiac arrest 05/23/17, secondary to obstructive sleep apnea/obesity hypoventilation syndrome with Bipap nonadherence. CTA stable. VQ scan negative . Hyperlipidemia Currently on clevidipine gtt drip at 5 mg an hour, esmolol drip discontinued today Currently on carvedilol 25 mg twice daily Diltiazem 90 mg every 6 hours Clonidine 0.3 mg every 8 hours Repeat echo 05/23: EF 60-65%, no RWMA Evaluated by cardiology, Dr. Bhakta on 05/24 due to troponin elevation. He attributed elevated troponin to PEA arrest, hypoxia, renal insufficiency. No further ischemic workup planned at this time. 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 The dissection extends to the abdominal aorta and terminates in the common iliac arteries bilaterally. The abdominal vessels arise from both the true and false lumens and demonstrate good opacification. Vascular surgery is following- Dr. Guzman Discontinue atorvastatin 40 mg by mouth daily for dyslipidemia due to elevated transaminases Pulm: Obstructive sleep apnea Obesity hypoventilation syndrome Acute hypercapnic respiratory failure intubated 05/30 PRVC 16/550/1.5/10/80 Ventilator bundle Albuterol/ipratropium aerosols q 4hours with albuterol q2 prn. V/Q scan: low prob PE CXR in am. revealed bilateral pulmonary infiltrates/edema. Status post bronchoscopy 05/30 revealed no mucus plugging. Normal bronchial mucosa without lesions. No signs of bleeding. Sample sent from BAL right lower lobe. Renal/: Nonoliguric acute kidney injury Likely secondary to ischemic ATN following cardiac arrest. Discussed with nephrology. Furosemide 40 mg IV every 8 hours and attempt to diurese. Creatinine 4.36-4.91 today -4500cc urine output past 24 hours Renal is following- Dr. Flannery US abdomen: No hydronephrosis. GI: Elevated transaminases Hypoalbuminemia Hyperammonia We will hold tube feeds with Nepro goal 50 cc an hour. Previously vital high- protein per nutrition recommendations: 70 cc hour Famotidine 20 mg by tube daily for GI prophylaxis written to switch to 10 mg twice daily by pharmacy Docusate/senna 1 tablet twice daily, polyethylene glycol 17 g twice daily and lactulose 30 cc twice daily for bowel regimen. Add mineral oil 30 cc 1 and methylnaltrexone will milligrams subcu 1 Glycerin suppository 1 day with positive results Monitor LFT's (trending up),Hep profile is negative Abdominal ultrasound 05/31 -market hepatic congestion. Contracted gallbladder with pericholecystic fluid. Possible acalculous cholecystitis recommend HIDA scan if clinically able. US abdomen: Gall bladder wall thickening and possible pericholecystic fluid without evidence of gallstones. Recommend HIDA scan if clinically indicated Lactulose 30 cc 4 times daily. Recheck ammonia level in a.m. GI consult. Appreciate Heme: Leukocytosis Microcytic anemia Monitor CBC VQ scan negative 05/23 BLE u/s negative for DVT 05/23 ID: MSSA pneumonia On ceftriaxone 05/25- Previously on Zosyn 05/23-05/25. Abx day #10 for MSSA in sputum. Due to acute respiratory failure restart piperacillin/tazobactam and add vancomycin day #3 started 3 Repeat UA and sputum cultures. Will check bronchoscopy washings today Pertinent: 06/01 -sputum -pending 05/31/ -blood cultures 2 -pending 05/30 -bronchoscopy -no growth 05/30 -sputum -rare WBC/budding yeast 05/30 -blood cultures 2 -pending 05/25 -blood cultures 2 -no growth to date 05/25 -urine culture -no growth to date 05/23 -sputum -MSSA 05/23 -blood cultures 2 -no growth to date Endo: Currently on sliding scale insulin NovUlin R medium regimen every 6 hours sliding scale. No coverage past 24 hours TSH 2.3 FEN: Hypokalemia Replace electrolytes as clinically indicated 40 mEq KCl 1 now. Recheck this afternoon and replace as clinically indicated MSK: Elevated BMI Weight loss encouraged PROPH: SCDs /Heparin subcut q 12 hours for DVT prophylaxis. (Previous ground host/hostess documented discussion with Dr. Guzman who would be amenable to anticoagulation if felt to be indicated for stroke, Dr. Espinosa states currently recommends ASA at this time. ). ACCESS R IJ CVL 05/23- 05/31 Left IJ CVL 05/31 day #2. Radial arterial line day #2 placed 05/31 by respiratory therapy Critical Care: The total critical care time was 30 minutes. Time to perform other separately billable procedures was not included in the critical care time. Landen Sharp MD Jun 01, 2017 10:17
--- NOTE | 2017-06-01 11:20 | RADRPT ---
EXAM DATE/TIME: 06/01/2017 10:14 [facility] COMPARISON: No previous studies available for comparison. INDICATIONS : Abdominal distention. MEDICAL HISTORY : Aortic dissection. Inguinal hernia. CVA. SURGICAL HISTORY : None. ENCOUNTER: Subsequent ACUITY: 1 day PAIN SCORE: Non-responsive. LOCATION: abdomen FINDINGS: Supine view of the abdomen was performed. The abdominal bowel gas pattern is mild ileus with NG tip in stomach. No abnormal masses, calcifications, or organomegaly is seen. The osseous structures are unremarkable. CONCLUSION: 1. Mild ileus. NG tip in stomach. Tc Varghese MD on June 01, 2017 at 11:16 Board Certified Radiologist. This report was verified electronically.
[2017-06-01] MEDS ORDERED: CISATRACURIUM BESYLATE 20 MG/10 ML VIAL IV PUSH ONE (11:30)
[2017-06-01] MEDS: CISATRACURIUM INJ 100 MG in SODIUM CHLOR 0.9% 250 ML INJ 250 ML IV PRN ×2 (12:42→20:54)
[2017-06-01] MEDS: EPOPROSTENOL NEB SOLUTION 50 NG/KG/MIN 100 ML NEB SCH ×4 (12:43→22:08)
[2017-06-01] MEDS: MIDAZOLAM 100 MG/100 ML INJ 100 ML IV PRN ×2 (13:44→20:55)
[2017-06-01] MEDS: METOCLOPRAMIDE HCL 10 MG/2 ML VIAL IV PUSH SCH ×2 (13:47→22:06)
--- NOTE | 2017-06-01 13:57 | HHI.GIFU ---
Subjective Remarks Pt intubated on vent. (Addie Springer) Objective Vitals I&O Vital Signs Date Time Temp Pulse Resp B/P (MAP) Pulse Ox O2 Delivery O2 Flow Rate FiO2 06/01/17 10:26 89 100 06/01/17 09:41 62 117/58 06/01/17 08:03 93 Mechanical Ventilator 80 06/01/17 08:00 98.9 66 16 129/84 (99) 92 116/60 (78) 06/01/17 08:00 80 06/01/17 07:44 92 80 06/01/17 07:00 67 06/01/17 05:20 79 128/66 06/01/17 04:26 97 90 06/01/17 04:00 80 06/01/17 03:00 99.1 78 16 127/60 (82) 98 133/64 (87) 06/01/17 03:00 77 06/01/17 03:00 93 Mechanical Ventilator 80 06/01/17 02:00 78 115/59 06/01/17 01:03 97 70 06/01/17 00:04 84 117/64 06/01/17 00:00 65 05/31/17 23:00 88 05/31/17 23:00 99.9 84 16 123/65 (84) 93 134/64 (87) 05/31/17 23:00 93 Mechanical Ventilator 65 05/31/17 22:35 89 70 05/31/17 21:00 91 130/65 05/31/17 20:07 97 65 05/31/17 20:00 65 05/31/17 19:00 85 05/31/17 19:00 102.5 90 17 136/62 (86) 97 137/63 (87) 05/31/17 19:00 97 Mechanical Ventilator 65 05/31/17 17:17 88 130/58 05/31/17 17:17 88 128/58 05/31/17 16:00 65 05/31/17 15:36 65 05/31/17 15:00 101.2 75 16 131/68 (89) 95 133/56 (81) 05/31/17 15:00 80 05/31/17 15:00 98 Mechanical Ventilator 65 05/31/17 14:32 74 118/59 05/31/17 13:55 93 65 I/O 05/31/17 05/31/17 05/31/17 06/01/17 06/01/17 06/01/17 07:00 15:00 23:00 07:00 15:00 23:00 Intake Total 150 ml 2836 ml 580 ml 2677.8 ml 97 ml Output Total 1200 ml 1650 ml 2150 ml Balance 150 ml 1636 ml -1070 ml 527.8 ml 97 ml Intake Oral 0 ml 0 ml IV Total 150 ml 2232 ml 550 ml 2517.8 ml 97 ml Tube Feeding 104 ml 10 ml Packed Cells 400 ml Blood Product IV Normal Saline Flush 100 ml Tube Irrigant 150 ml Other 30 ml Output Urine Total 1200 ml 1450 ml 1850 ml Gastric Drainage Total 200 ml 300 ml # Bowel Movements 0 0 0 Laboratory Laboratory Tests Test 05/31/17 16:15 05/31/17 23:00 06/01/17 04:40 06/01/17 11:25 Hemoglobin 10.3 7.8 Hematocrit 24.0 24.1 Potassium Level 3.2 2.9 Urine Color YELLOW Urine Turbidity HAZY Urine pH 5.0 Urine Specific [place] 1.010 Urine Protein TRACE Urine Glucose (UA) NEG Urine Ketones NEG Urine Occult Blood MOD Urine Nitrite NEG Urine Bilirubin NEG Urine Urobilinogen LESS THAN 2.0 Urine Leukocyte Esterase NEG Urine RBC 32 Urine WBC 3 Urine Amorphous Sediment RARE Microscopic Urinalysis Comment CATH-CULT NOT IND White Blood Count 15.5 Red Blood Count 2.97 Mean Corpuscular Volume 81.1 Mean Corpuscular Hemoglobin 26.1 Mean Corpuscular Hemoglobin Concent 32.2 Red Cell Distribution Width 16.3 Platelet Count 391 Mean Platelet Volume 9.8 Neutrophils (%) (Auto) 76.9 Lymphocytes (%) (Auto) 11.9 Monocytes (%) (Auto) 3.9 Eosinophils (%) (Auto) 6.7 Basophils (%) (Auto) 0.6 Neutrophils # (Auto) 11.9 Lymphocytes # (Auto) 1.8 Monocytes # (Auto) 0.6 Eosinophils # (Auto) 1.0 Basophils # (Auto) 0.1 CBC Comment AUTO DIFF Differential Total Cells Counted 100 Neutrophils % (Manual) 63 Band Neutrophils % 11 Lymphocytes % 11 Monocytes % 2 Eosinophils % 12 Basophils % 1 Neutrophils # (Manual) 11.5 Nucleated Red Blood Cells 3 Differential Comment FINAL DIFF MANUAL Platelet Estimate NORMAL Platelet Morphology Comment NORMAL Hematology Comments Blood Urea Nitrogen 64 Creatinine 4.91 Random Glucose 86 Total Protein 6.9 Albumin 2.3 Calcium Level 8.0 Phosphorus Level 4.6 Magnesium Level 2.2 Alkaline Phosphatase 113 Aspartate Amino Transf (AST/SGOT) 1867 Alanine Aminotransferase (ALT/SGPT) 1741 Total Bilirubin 2.5 Sodium Level 140 Chloride Level 104 Carbon Dioxide Level 25.6 Anion Gap 10 Estimat Glomerular Filtration Rate 16 Lactic Acid Level LESS THAN 0.1 Iron Level 76 Total Iron Binding Capacity 266 Percent Iron Saturation 28.6 Ferritin 6155 Ammonia 158 Total Creatine Kinase 6165 Creatine Kinase MB 10.5 Creatine Kinase MB % 0.2 Tumor Marker Alpha Fetoprotein 2.0 Random Vancomycin Level 10.5 Date/Time Source Procedure Growth Status 06/01/17 00:02 Blood Peripheral Aerobic Blood Culture Pending Resulted 06/01/17 00:02 Blood Peripheral Anaerobic Blood Culture - Final QNS - SEE AEROBE REPORT Resulted 06/01/17 05:00 Sputum Endotracheal Gram Stain - Final Resulted 06/01/17 05:00 Sputum Endotracheal Sputum Culture Pending Resulted 05/25/17 12:30 Urine Catheterized Urine Urine Culture - Final NO GROWTH IN 48 HOURS. Complete Imaging Last Impressions Chest X-Ray 06/01/17 0000 Signed Impressions: Service Date/Time: Thursday, June 01, 2017 03:13 - CONCLUSION: Unchanged bilateral pulmonary infiltrates. Rudy Cervantes Jr., MD Abdomen X-Ray 06/01/17 0000 Signed Impressions: Service Date/Time: Thursday, June 01, 2017 10:14 - CONCLUSION: 1. Mild ileus. NG tip in stomach. Tc Varghese MD Liver Ultrasound 05/31/17 1434 Signed Impressions: Service Date/Time: Wednesday, May 31, 2017 14:40 - CONCLUSION: 1. Interval apparent hepatomegaly with diffusely increased hepatic echogenicity. Given the acuity of findings, findings may reflect acute hepatitis or congestive hepatopathy. 2. Persistently contracted gallbladder which accentuates the gallbladder wall with persistent gallbladder wall thickening and trace pericholecystic fluid. These findings are commonly seen in the setting of liver disease although differential considerations include acalculous cholecystitis. HIDA scan may be performed for better evaluation as clinically appropriate. 3. Andrew Kraft MD Lung Scan- Nuclear Medicine 05/23/17 0000 Signed Impressions: Service Date/Time: Tuesday, May 23, 2017 10:22 - CONCLUSION: Low probability of pulmonary embolism. Buddy Harrison MD FACR Lower Extremity Ultrasound 05/23/17 Signed Impressions: Service Date/Time: Tuesday, May 23, 2017 08:02 - CONCLUSION: Negative for deep venous thrombosis. Buddy Harrison MD FACR Head CT 05/23/17 0000 Signed Impressions: Service Date/Time: Tuesday, May 23, 2017 03:56 - CONCLUSION: 1. Examination quality is degraded by motion artifact. 2. No definite acute finding is identified. There is a 3 mm punctate area of high density in the left frontal periventricular white matter. This could represent small focus of acute blood products. Suggest attention to this on followup imaging. Wiliam Buck MD Brain MRI 05/23/17 Signed Impressions: Service Date/Time: Tuesday, May 23, 2017 15:59 - CONCLUSION: 1. 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 2. No hemorrhage observe. 3. Pansinus disease. Rudy Cervantes Jr., MD Aorta CTA 05/23/17 Signed Impressions: Service Date/Time: Tuesday, May 23, 2017 03:58 - CONCLUSION: 1. 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 The dissection extends to the abdominal aorta and terminates in the common iliac arteries bilaterally. The abdominal vessels arise from both the true and false lumens and demonstrate good opacification. Suggest correlating with the patient's prior imaging study which documents the dissection. 2. 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 3. There is stranding of the periaortic fat adjacent to the arch aneurysm. 4. There are small bilateral pleural effusions, left larger than right, with bilateral volume loss and/or airspace consolidation bilaterally. Wiliam Buck MD Abdomen Ultrasound 05/23/17 Signed Impressions: Service Date/Time: Tuesday, May 23, 2017 17:22 - CONCLUSION: 1. Gall bladder wall thickening and possible pericholecystic fluid without evidence of gallstones. May consider perform hepatic biliary tract scan to evaluate for acalculous cholecystitis. 2. No focal abnormality seen within the liver. Rudy Pollock MD Physical Exam HEENT: normocephalic; atraumatic; no jaundice. CHEST: wheezes CARDIAC: RRR ABDOMEN: Soft, obese, BS faint EXTREMITIES: No clubbing, cyanosis, + edema. SKIN: Normal; no rash; no jaundice. 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 LFTs were WNL on day of admission and have been trending up with sudden large increase today. US 05/23 showed GB wall t hickening and poss pericholecystic fluid, no stones. repeat US is pending. hepatitis panel neg. - bilat embolic CVA, HTN emergency, aortic dissection, PEA 05/23/17 2/2 CORI, per CCM 06/01/17 worsening creatinine. now with mild ileus per KUB. NGT to [facility]. US liver showed hepatomegaly, acute hepatitis vs congestion, liver dz vs cholecystitis. NH elevated 158 -- ?lactulose enemas?. hep panel negative, rest of liver w/u pending would give reglan for ileus but creatinine worsening. PLAN - NGT to [facility] - await liver w/u - supportive care - further recs to follow pt seen by myself and Dr Martin and this note is on his behalf (Addie Springer) Physician Comments Agree with plan as above. Further recommendations to follow. (Andressa Martin MD) Addie Springer Jun 01, 2017 13:57 Andressa Martin MD Jun 01, 2017 15:35
--- NOTE | 2017-06-01 14:14 | HHI.NPPN ---
Subjective History of Present Illness 36 year old with Aortic dissection ARF Additional Remarks Patient remains intubated Objective Data Data 06/01/17 06/02/17 19:00 07:00 Intake Total 97 ml Balance 97 ml IV Total 97 ml Vital Signs Date Time Temp Pulse Resp B/P (MAP) Pulse Ox O2 Delivery O2 Flow Rate FiO2 06/01/17 14:11 78 124/72 06/01/17 10:26 89 100 06/01/17 09:41 62 117/58 06/01/17 08:03 93 Mechanical Ventilator 80 06/01/17 08:00 98.9 66 16 129/84 (99) 92 116/60 (78) 06/01/17 08:00 80 06/01/17 07:44 92 80 06/01/17 07:00 67 06/01/17 05:20 79 128/66 06/01/17 04:26 97 90 06/01/17 04:00 80 06/01/17 03:00 99.1 78 16 127/60 (82) 98 133/64 (87) 06/01/17 03:00 77 06/01/17 03:00 93 Mechanical Ventilator 80 06/01/17 02:00 78 115/59 06/01/17 01:03 97 70 06/01/17 00:04 84 117/64 06/01/17 00:00 65 05/31/17 23:00 88 05/31/17 23:00 99.9 84 16 123/65 (84) 93 134/64 (87) 05/31/17 23:00 93 Mechanical Ventilator 65 05/31/17 22:35 89 70 05/31/17 21:00 91 130/65 05/31/17 20:07 97 65 05/31/17 20:00 65 05/31/17 19:00 85 05/31/17 19:00 102.5 90 17 136/62 (86) 97 137/63 (87) 05/31/17 19:00 97 Mechanical Ventilator 65 05/31/17 17:17 88 130/58 05/31/17 17:17 88 128/58 05/31/17 16:00 65 05/31/17 15:36 65 05/31/17 15:00 101.2 75 16 131/68 (89) 95 133/56 (81) 3/13/18 15:00 80 05/31/17 15:00 98 Mechanical Ventilator 65 05/31/17 14:32 74 118/59 -: 06/01/17 0440 06/01/17 0440 Microbiology 06/01/17 Aerobic Blood Culture, Resulted Pending 06/01/17 Anaerobic Blood Culture - Final, Resulted QNS - SEE AEROBE REPORT 05/31/17 Aerobic Blood Culture - Preliminary, Resulted NO GROWTH IN 1 DAY 05/31/17 Anaerobic Blood Culture - Preliminary, Resulted NO GROWTH IN 1 DAY 06/01/17 Gram Stain - Final, Resulted 06/01/17 Sputum Culture, Resulted Pending Physical Exam General Appearance: Well Developed Eyes Eye Exam: Pupils Equal Neck Neck Exam: Neck Supple Pulmonary Resp Exam: Clear Bilaterally Cardiology CV Exam: Regular, Normal Sinus Rhythm Gastrointestinal/Abdomen GI Exam: Soft, Non-Tender Genitourinary Exam: Clear Urine Integumentary Skin Exam: Intact Extremeties Extremities Exam: Moderate Edema, Pitting Edema, Dependent Edema Assessment/Plan Problem List: (1) Acute renal failure ICD Codes: N17.9 - Acute kidney failure, unspecified Plan: He has large dissection of aorta continue to monitor he is passing urine , creatinine he did receive IV contrast repeat CTA Dissection up to Common Iliac arteries seen with true and false lumen perfused Cr 4.9 non oliguric Monitor intake and output Blood pressure was elevated, now on Coreg/clonidine/Labetalol/ Cardizem and prn Hydralazine Patient has good urine out. Creatinine is slightly better. K is low, replaced. Inc LFT may try Lasix 40 mg IV q 8 (2) Dissection of aorta, thoracoabdominal ICD Codes: I71.03 - Dissection of thoracoabdominal aorta Status: Acute Plan: vascular is following Renal arteries remains perfused Roz Flannery MD Jun 01, 2017 14:14
[2017-06-01] MEDS ORDERED: VANCOMYCIN INJ 2,000 MG in SODIUM CHLORID 0.9% 500 ML INJ 500 ML IV ONE (15:00)
[2017-06-01] MEDS ORDERED: niCARdipine INJ 25 MG in SODIUM CHLOR 0.9% 250 ML INJ 240 ML IV PRN (17:00)
[2017-06-01] MEDS: POTASSIUM CHLOR 20 MEQ PREMIX 100 ML IV SCH (22:00)
[2017-06-02] VITALS (16 sets, daily range): BP systolic 91–145; BP diastolic 55–68; PULSE 69–80; RESP 16; TEMP 98.6–100; O2SAT 90–98
[2017-06-02] MEDS: CISATRACURIUM INJ 100 MG in SODIUM CHLOR 0.9% 250 ML INJ 250 ML IV PRN ×6 (00:14→22:31)
[2017-06-02] MEDS: RESP: ALBUTEROL 2.5 MG/IPRATROPIUM 0.5 MG NEB (SCH) NEB ×5 (00:37→16:00)
[2017-06-02] MEDS: DILTIAZEM HCL 90 MG TAB PO SCH ×4 (00:43→17:11)
[2017-06-02] MEDS: LACTULOSE SYRUP 20 GM/30 ML CUP OG-TUBE SCH ×4 (00:43→16:43)
[2017-06-02] MEDS: FUROSEMIDE 40 MG/4 ML VIAL IV PUSH SCH ×3 (00:43→16:42)
[2017-06-02] MEDS: fentaNYL DRIP 250 ML IV PRN ×3 (01:55→17:30)
[2017-06-02] MEDS: CHLORHEXIDINE GLUCONATE 2 % 1 PACK (2 CLOTHS) TOP SCH (04:00)
[2017-06-02 05:00] LABS: AUTOMATED NEUTROPHIL # 11.7 TH/MM3 (1.8-7.7); BASOPHIL # 0.2 TH/MM3 (0-0.2); EOSINOPHIL # 0.8 TH/MM3 (0-0.4); EOSINOPHIL % 4.9 % (0.0-4.0); HEMATOCRIT 24.3 % (39.0-51.0); LYMPH % 14.1 % (9.0-44.0); LYMPHOCYTE # 2.2 TH/MM3 (1.0-4.8); MEAN PLATELET VOLUME 8.9 FL (7.0-11.0); MONO % 4.6 % (0.0-8.0); MONOCYTE # 0.7 TH/MM3 (0-0.9); NEUT % 75.4 % (16.0-70.0); PLATELET COUNT 284 TH/MM3 (150-450); WHITE BLOOD COUNT 15.5 TH/MM3 (4.0-11.0)
[2017-06-02] MEDS: EPOPROSTENOL NEB SOLUTION 50 NG/KG/MIN 100 ML NEB SCH ×4 (05:00→12:08)
[2017-06-02] MEDS: MIDAZOLAM 100 MG/100 ML INJ 100 ML IV PRN ×2 (05:42→14:03)
[2017-06-02] MEDS: cloNIDine HCL 0.3 MG TAB PO SCH ×3 (05:43→21:57)
[2017-06-02] MEDS: ARTIFICIAL TEARS OPTH SOLN 15 ML BTL EACH EYE SCH ×3 (05:43→22:00)
[2017-06-02] MEDS: PIPERACIL-TAZO 2.25 GM PREMIX 50 ML IV SCH ×3 (05:43→21:57)
[2017-06-02 05:57] LABS: BICARBONATE 22.9 MEQ/L (21.0-32.0); CREATININE 5.4 MG/DL (0.60-1.30); MAGNESIUM 2.2 MG/DL (1.5-2.5); PHOSPHORUS 5.8 MG/DL (2.5-4.9)
[2017-06-02 05:58] LABS: HEMOGLOBIN 8.2 GM/DL (13.0-17.0); MEAN CELL VOLUME 81.3 FL (80.0-100.0); RED BLOOD COUNT 2.99 MIL/MM3 (4.50-5.90)
[2017-06-02 05:59] LABS: MEAN CORPUSCULAR HEMOGLOBIN 27.4 PG (27.0-34.0); MEAN CORPUSCULAR HGB CONC 33.7 % (32.0-36.0); RED CELL DISTRIBUTION WIDTH 15.8 % (11.6-17.2)
[2017-06-02] MEDS: INSULIN NovoLIN REGULAR SUPPLEMENTAL SCALE SQ SCH ×5 (06:00→17:38)
--- NOTE | 2017-06-02 06:22 | RADRPT ---
EXAM DATE/TIME: 06/02/2017 05:30 [place] COMPARISON: CHEST SINGLE AP, June 01, 2017, 3:13. INDICATIONS : Shortness of breath, possible pulmonary disease. MEDICAL HISTORY : Hypertension. Renal failure, acute. CVA Inguinal hernia SURGICAL HISTORY : Hernia repair ENCOUNTER: Subsequent ACUITY: 2 weeks PAIN SCORE: Non-responsive. LOCATION: Bilateral chest FINDINGS: Diffuse bilateral pulmonary infiltrates again noted. There is been slight improvement within the righ t upper lobe component. No effusions. Heart normal size. Tip of the endotracheal tube approximately 5 cm proximal to the julee. Tip of the nasogastric tube in the region of the body the stomach. Left-s ided central line. CONCLUSION: Slight improvement in the right upper lobe component of the bilateral pulmonary infiltrates. Rudy Cervantes Jr., MD on June 02, 2017 at 6:19 Board Certified Radiologist. This report was verified electronically.
[2017-06-02 06:31] LABS: TOTAL BILIRUBIN ADULT 2.5 MG/DL (0.2-1.0)
[2017-06-02 06:42] LABS: TOTAL PROTEIN 7.2 GM/DL (6.4-8.2)
[2017-06-02 06:56] LABS: ALBUMIN 1.8 GM/DL (3.4-5.0)
[2017-06-02] MEDS: CHLORHEXIDINE 0.12% (ORAL KIT) 15 ML CUP MT SCH ×2 (08:06→21:56)
[2017-06-02] MEDS: HEPARIN SODIUM - SQ 10,000 UNITS/ML VIAL SQ SCH ×2 (08:25→22:00)
[2017-06-02] MEDS: SODIUM CHLORIDE 0.9% FLUSH 10 ML FLUSH IV FLUSH SCH (08:27)
[2017-06-02] MEDS: POLYETHYLENE GLYCOL 17 GM PKG NG SCH ×2 (08:27→21:59)
[2017-06-02] MEDS: FAMOTIDINE 20 MG TAB NG SCH (08:27)
[2017-06-02] MEDS: CARVEDILOL 12.5 MG TAB PO SCH ×2 (08:27→21:57)
[2017-06-02] MEDS: DOCUSATE SODIUM 50 MG/SENNA 8.6 MG TAB PO SCH ×2 (08:27→21:00)
[2017-06-02] MEDS: ASPIRIN 81 MG CHEW TAB CHEW SCH (08:28)
[2017-06-02 08:32] LABS: BANDS 21 % (0-6); CORRECTED NUCLEATED RBC 8 /100 WBC (0-0); LYMPHOCYTES 6 % (9-44); METAMYELOCYTES 1 % (0-1); NEUTROPHIL # MANUAL DIFF 13.2 TH/MM3 (1.8-7.7); NUCLEATED RED BLOOD CELL 8 (0-0); POLYS (SEG NEUTROPHILS) 63 % (16-70)
--- NOTE | 2017-06-02 09:17 | HHI.CCPN ---
Subjective Remarks/Hospital Course 05/19: Is a 36-year-old male with a history of hypertension who is on vacation from the [place] area who did not take his antihypertensives today because he is on vacation, and was having sexual intercourse when he had sudden onset of severe substernal radiating to the back chest pain earlier today. 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 He was emergently transferred to [facility] for further management. I evaluated the patient on arrival to the ICU by EVAC. Patient denies abdominal pain. Still endorses chest pain although this is improving. Patient denies any other symptoms. CT chest abdomen pelvis was reviewed and reviewed with myself and Dr. Guzman and does demonstrate a type B dissection. 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 Initial laboratory evidence demonstrates a lactate of 1.3, creatinine 1.2, normal LFTs. 05/20: On home C Pap. Urine output 30 cc/h currently. Remains on esmolol and labetalol drips. Remains drowsy though arousable. +4.4 L 05/21: Resting comfortably on nasal cannula. Awake and alert currently. Denies any shortness of breath or chest pain currently. 05/22: AAO x3, resting comfortably. 05/23 Patient went into PEA arrest early this morning now sedated with Diprivan and intubated. Off Esmolol drip. 05/24 Patient is sedated with Diprivan and intubated. On Labetolol drip. MRI brain yesterday showed multiple small infracts, no hemorrhage. 05/25 Patient remains intubated and sedated. T: 100.5 last night. Renal function is worsening with Cr: 3.6 from 3.4 and UOP: 2650ml in 24 hrs. 05/26 No events overnight. Sedated and intubated. Afebrile. Cr: 3.62 , UOP: 1950ml in 24 hrs 05/27 Patient was extubated yesterday placed on BIPAP overnight. Cr: 3.42 today , UOP: 1800 ml in 24 hrs 05/28 Extubated yesterday and per report was compliant with Bipap overnight Remains on esmolol drip 200 mcg/kg/min and SBP in 140s. ZULY, probable ATN non- oliguric however I>>0 with significant intake from MIVF as well as 180 mL/hr from esmolol drip. IVF d/c per nephrology and transitioning off esmolol to minimize fluid. Hugo now per my discussion with Dr. Thornton. He is tachypneic, obtained ABG with hypercapnea on simple mask. Placing On Bipap. at bedside requesting eventual transfer to [place], though she realized he is not stable for that yet. 05/29: Remains on BiPAP since 299 with increasing respiratory rates. Will attempt a more aggressive diuresis. We started on esmolol drip due to persistent tachycardia and unable to reach target blood pressure and heart rate requirements. At high risk for reintubation. 05/30: Remained hypotensive overnight. This a.m. desaturated, tachypneic requiring high percent on BiPAP hence intubated by [employer]. Will require bronchoscopy this afternoon. Continue with aggressive diuresis. Broad antibiotic coverage. Start tube feeding. The systolic blood pressure better controlled while intubated on propofol and fentanyl drips. 05/31: T-max 102.8. Currently 99.6. FiO2 down to 80%. The same noted elevated transaminases AST of 2674. ALT of 1590. Creatinine is increased to 3.07 to 4.36. +2 L past 24 hours. One bowel movement. Noted prior gallbladder wall thickening on previous ultrasound. We will repeat today Subjective 06/01: T-max 102.5. Currently 98.9. Desaturate overnight resolved currently FiO2 of 80%. 4500 cc urine output. Creatinine continues to rise currently 4.9. CPK currently 6165. We will discontinue propofol with hepatomegaly, rhabdomyolysis possibly indicative propofol infusion syndrome. 06/02 Patient remains intubated and sedated. On Fentanyl, Versed and Nimbex. T: 100.0 at midnight. On PC/AC with PEEP:15, FIO2 50% Renal function continue to decline with Cr: 5.40 from 4.91 and UOP: 2895 ml in 24 hrs Objective Vital Signs Date Time Temp Pulse Resp B/P (MAP) Pulse Ox O2 Delivery O2 Flow Rate FiO2 06/02/17 08:02 60 06/02/17 07:51 92 06/02/17 07:43 98.8 77 16 122/68 (86) 145/66 (92) 06/01/17 20:00 Mechanical Ventilator Intake and Output 06/02/17 06/02/17 06/03/17 08:00 16:00 00:00 Intake Total 1180 ml Output Total 2340 ml Balance -1160 ml Result Diagram: 06/02/17 0440 06/02/17 0440 Other Results Laboratory Tests Test 06/01/17 11:25 06/01/17 14:33 06/02/17 02:45 06/02/17 04:40 Potassium Level 3.2 MEQ/L 3.2 MEQ/L Triglycerides Level 2287 MG/DL Random Vancomycin Level 10.5 COMMENT Blood Gas Puncture Site LT RADIAL LT RADIAL Blood Gas Patient Temperature 98.6 98.6 Blood Gas HCO3 21 mmol/L 22 mmol/L Blood Gas Base Excess -2.6 mmol/L -4.6 mmol/L Blood Gas Oxygen Saturation 92 % 88 % Arterial Blood pH 7.42 7.24 Arterial Blood Partial Pressure CO2 34 mmHg 53 mmHg Arterial Blood Partial Pressure O2 92 mmHG 83 mmHg Arterial Blood Oxygen Content 10.9 Vol % 10.3 Vol % Arterial Blood Carboxyhemoglobin 0.6 % 1.5 % Arterial Blood Methemoglobin 3.4 % 4.3 % Blood Gas Hemoglobin 8.3 G/DL 8.2 G/DL Oxygen Delivery Device VENTILATOR VENTILATOR Blood Gas Ventilator Setting SEE COMMENTS PC/AC Blood Gas Inspired Oxygen 60 % 70 % White Blood Count 15.5 TH/MM3 Red Blood Count 2.99 MIL/MM3 Hemoglobin 8.2 GM/DL Hematocrit 24.3 % Mean Corpuscular Volume 81.3 FL Mean Corpuscular Hemoglobin 27.4 PG Mean Corpuscular Hemoglobin Concent 33.7 % Red Cell Distribution Width 15.8 % Platelet Count 284 TH/MM3 Mean Platelet Volume 8.9 FL Neutrophils (%) (Auto) 75.4 % Lymphocytes (%) (Auto) 14.1 % Monocytes (%) (Auto) 4.6 % Eosinophils (%) (Auto) 4.9 % Basophils (%) (Auto) 1.0 % Neutrophils # (Auto) 11.7 TH/MM3 Lymphocytes # (Auto) 2.2 TH/MM3 Monocytes # (Auto) 0.7 TH/MM3 Eosinophils # (Auto) 0.8 TH/MM3 Basophils # (Auto) 0.2 TH/MM3 CBC Comment AUTO DIFF Differential Total Cells Counted 100 Neutrophils % (Manual) 63 % Band Neutrophils % 21 % Lymphocytes % 6 % Eosinophils % 9 % Neutrophils # (Manual) 13.2 TH/MM3 Metamyelocytes 1 % Nucleated Red Blood Cells 8 /100 WBC Differential Comment FINAL DIFF MANUAL Platelet Estimate NORMAL Platelet Morphology Comment ENLARGED Red Cell Morphology Comment Hematology Comments Blood Urea Nitrogen 65 MG/DL Creatinine 5.40 MG/DL Random Glucose 123 MG/DL Total Protein 7.2 GM/DL Albumin 1.8 GM/DL Calcium Level 7.0 MG/DL Phosphorus Level 5.8 MG/DL Magnesium Level 2.2 MG/DL Alkaline Phosphatase 115 U/L Aspartate Amino Transf (AST/SGOT) 1116 U/L Alanine Aminotransferase (ALT/SGPT) 1499 U/L Total Bilirubin 2.5 MG/DL Sodium Level 142 MEQ/L Chloride Level 105 MEQ/L Carbon Dioxide Level 22.9 MEQ/L Anion Gap 14 MEQ/L Estimat Glomerular Filtration Rate 15 ML/MIN Lactic Acid Level 0.2 mmol/L Protein Corrected Calcium 7.0 MG/DL Ammonia 42 MCMOL/L Total Creatine Kinase 3695 U/L Creatine Kinase MB 5.2 NG/ML Creatine Kinase MB % 0.1 % Lipase 340 U/L Imaging Last Impressions Chest X-Ray 06/02/17 0600 Signed Impressions: Service Date/Time: May 05:30 - CONCLUSION: Slight improvement in the right upper lobe component of the bilateral pulmonary infiltrates. Rudy Ceravntes Jr., MD Abdomen X-Ray 06/01/17 0000 Signed Impressions: Service Date/Time: Thursday, June 01, 2017 10:14 - CONCLUSION: 1. Mild ileus. NG tip in stomach. Tc Varghese MD Liver Ultrasound 05/31/17 1434 Signed Impressions: Service Date/Time: Wednesday, May 31, 2017 14:40 - CONCLUSION: 1. Interval apparent hepatomegaly with diffusely increased hepatic echogenicity. Given the acuity of findings, findings may reflect acute hepatitis or congestive hepatopathy. 2. Persistently contracted gallbladder which accentuates the gallbladder wall with persistent gallbladder wall thickening and trace pericholecystic fluid. These findings are commonly seen in the setting of liver disease although differential considerations include acalculous cholecystitis. HIDA scan may be performed for better evaluation as clinically appropriate. 3. Andrew Kraft MD Lung Scan-VQ Nuclear Medicine 05/23/17 Signed Impressions: Service Date/Time: Tuesday, May 23, 2017 10:22 - CONCLUSION: Low probability of pulmonary embolism. Buddy Harrison MD FACR Lower Extremity Ultrasound 05/23/17 Signed Impressions: Service Date/Time: Tuesday, May 23, 2017 08:02 - CONCLUSION: Negative for deep venous thrombosis. Buddy Harrison MD FACR Head CT 05/23/17 Signed Impressions: Service Date/Time: Tuesday, May 23, 2017 03:56 - CONCLUSION: 1. Examination quality is degraded by motion artifact. 2. No definite acute finding is identified. There is a 3 mm punctate area of high density in the left frontal periventricular white matter. This could represent small focus of acute blood products. Suggest attention to this on followup imaging. Wiliam Buck MD Brain MRI 05/23/17 Signed Impressions: Service Date/Time: Tuesday, May 23, 2017 15:59 - CONCLUSION: 1. 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 2. No hemorrhage observe. 3. Pansinus disease. Rudy Cervantes Jr., MD Aorta CTA 05/23/17 Signed Impressions: Service Date/Time: Tuesday, May 23, 2017 03:58 - CONCLUSION: 1. 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 The dissection extends to the abdominal aorta and terminates in the common iliac arteries bilaterally. The abdominal vessels arise from both the true and false lumens and demonstrate good opacification. Suggest correlating with the patient's prior imaging study which documents the dissection. 2. 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 3. There is stranding of the periaortic fat adjacent to the arch aneurysm. 4. There are small bilateral pleural effusions, left larger than right, with bilateral volume loss and/or airspace consolidation bilaterally. Wiliam Buck MD Abdomen Ultrasound 05/23/17 0000 Signed Impressions: Service Date/Time: Tuesday, May 23, 2017 17:22 - CONCLUSION: 1. Gall bladder wall thickening and possible pericholecystic fluid without evidence of gallstones. May consider perform hepatic biliary tract scan to evaluate for acalculous cholecystitis. 2. No focal abnormality seen within the liver. Rudy Pollock MD Objective Remarks GENERAL: 36-year-old AA male resting in bed orotracheally intubated SKIN: Warm and dry, adequately perfused. HEAD: Normocephalic. EYES: Pupils 3 mm and reactive. No scleral icterus. No injection or drainage. NECK: Supple, trachea midline. No JVD or lymphadenopathy. Left IJ CVL is clean dry and intact CARDIOVASCULAR: Distant. RRR. S1, S2 no S4. Cannot appreciate murmurs, clicks , gallops or rubs RESPIRATORY: Coarse rhonchorous crackles appreciated throughout all lung [place] anterior-posterior bilaterally. No wheezing GASTROINTESTINAL: Abdomen soft, non-tender, nondistended. Hypoactive bowel sounds are appreciated MUSCULOSKELETAL: No cyanosis. Edema 2+ bilateral upper and lower extremities NEURO: Currently sedated on propofol and fentanyl drips. Positive gag and corneal reflex. Positive cough. 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 On Fentanyl, Versed infusion for sedation in addition patient is on Nimbex. Goal of RASS -2 Daily sedation vacation when appropriate Acetaminophen 650 mg by tube every 6 hours as needed fever discontinued due to elevated transaminases Evaluated by neurology/Dr. Espinosa MRI brain 05/23 revealed bilateral frontal embolic CVA CT brain: There is a 3 mm punctate area of high density in the left frontal periventricular white matter. This could represent small focus of acute blood products. EEG : Mild diffuse encephalopathy, no seizure activity Continue aspirin 162 mg p.o. daily. Okayed with neurology. CV: Hypertensive emergency Acute type B aortic dissection Elevated troponin PEA cardiac arrest 05/23/17, secondary to obstructive sleep apnea/obesity hypoventilation syndrome with Bipap nonadherence. CTA stable. VQ scan negative . Hyperlipidemia Monitor HR and BP keep MAP>65mmHg Currently on carvedilol 25 mg twice daily Diltiazem 90 mg every 6 hours Clonidine 0.3 mg every 8 hours Repeat echo 05/23: EF 60-65%, no RWMA Evaluated by cardiology, Dr. Bhakta on 05/24 due to troponin elevation. He attributed elevated troponin to PEA arrest, hypoxia, renal insufficiency. No further ischemic workup planned at this time. 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 The dissection extends to the abdominal aorta and terminates in the common iliac arteries bilaterally. The abdominal vessels arise from both the true and false lumens and demonstrate good opacification. Vascular surgery is following- Dr. Guzman Pulm: Obstructive sleep apnea Obesity hypoventilation syndrome Acute hypercapnic respiratory failure intubated 05/30 PC/ACIP:25, IT:1.9, PEEP:15, FIO2 50% Ventilator bundle Albuterol/ipratropium aerosols q 4hours with albuterol q2 prn. On Flolan nebs V/Q scan: low prob PE CXR today- Slight improvement in the right upper lobe component of the bilateral pulmonary infiltrates. Status post bronchoscopy 05/30 revealed no mucus plugging. Normal bronchial mucosa without lesions. No signs of bleeding. Renal/: Nonoliguric acute kidney injury Rhabdo Likely secondary to ischemic ATN following cardiac arrest. Furosemide 40 mg IV every 8 hours Cr: 5.40 today from 4.9 with UOP: 2850ml in 24 hrs Renal is following- Dr. Flannery US abdomen: No hydronephrosis. GI: Elevated transaminases Hypoalbuminemia Hyperammonia Check KUB , TF on hold for ileus (Nepro goal 50 cc an hour). Famotidine 20 mg by tube daily for GI prophylaxis written to switch to 10 mg twice daily by pharmacy Docusate/senna 1 tablet twice daily, polyethylene glycol 17 g twice daily and lactulose 30 cc twice daily for bowel regimen. Monitor LFT's (trending up),Hep profile is negative Abdominal ultrasound 05/31 -market hepatic congestion. Contracted gallbladder with pericholecystic fluid. Possible acalculous cholecystitis recommend HIDA scan if clinically able. US abdomen: Gall bladder wall thickening and possible pericholecystic fluid without evidence of gallstones. Recommend HIDA scan if clinically indicated Lactulose 30 cc 4 times daily. Ammonia level 42 from 158 GI consult. Appreciate Heme: Leukocytosis Microcytic anemia Monitor CBC VQ scan negative 05/23 BLE u/s negative for DVT 05/23 ID: MSSA pneumonia On ceftriaxone 05/25-12 Previously on Zosyn 05/23-3/7. Abx day #10 for MSSA in sputum. Now on Vanco and Zosyn. Monitor for signs of infections ( Fever, WBC) ID eval Pertinent: 06/01 -sputum -pending 05/31/ -blood cultures 2 -pending 05/30 -bronchoscopy -no growth 05/30 -sputum -rare WBC/budding yeast 05/30 -blood cultures 2 -pending 05/25 -blood cultures 2 -no growth to date 05/25 -urine culture -no growth to date 05/23 -sputum -MSSA 05/23 -blood cultures 2 -no growth to date Endo: Currently on sliding scale insulin NovUlin R medium regimen every 6 hours sliding scale. TSH 2.3 MSK: Elevated BMI Weight loss encouraged PROPH: SCDs /Heparin subcut q 12 hours for DVT prophylaxis. 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 Espinosa states currently recommends ASA at this time. ). ACCESS R IJ CVL 05/23- 05/31 Left IJ CVL placed 05/31 Radial arterial line placed 05/31 by respiratory therapy Critical Care: The total critical care time was 30 minutes. Time to perform other separately billable procedures was not included in the critical care time. Abner Elizabeth MD Jun 02, 2017 09:16
[2017-06-02] MEDS ORDERED: Vancomycin Consult Pharmacy 1 EA OTHER SCH (09:30)
[2017-06-02] MEDS ORDERED: CALCIUM GLUCONATE INJ 1 GM in SODIUM CHLORIDE 0.9% INJ 100 ML IV ONE (11:00)
--- NOTE | 2017-06-02 11:48 | RADRPT ---
EXAM DATE/TIME: 06/02/2017 10:18 [place] COMPARISON: No previous studies available for comparison. INDICATIONS : Ileus MEDICAL HISTORY : Hypertension. Renal failure, acute. Aortic dissection. Inguinal hernia. CVA SURGICAL HISTORY : Hernia repair. ENCOUNTER: Subsequent ACUITY: 2 days PAIN SCORE: Non-responsive. LOCATION: Bilateral Abdomen FINDINGS: Supine view of the abdomen was performed. The abdominal bowel gas pattern is mild ileus. NG tip in s tomach. Left basilar airspace disease. No abnormal masses, calcifications, or organomegaly is seen. The osseous structures are unremarkable. CONCLUSION: NG tip in stomach. Left basilar airspace disease. Elevated right hemidiaphragm. Bowel gas pattern dem onstrates mild ileus Tc Varghese MD on June 02, 2017 at 11:44 Board Certified Radiologist. This report was verified electronically.
[2017-06-02] MEDS ORDERED: POTASSIUM CHLOR 40 MEQ PREMIX 100 ML IV ONE (13:00)
[2017-06-02 14:08] LABS: SMOOTH MUSCLE TOTAL AUTOABS Negative (Negative)
[2017-06-02 14:19] LABS: ALPHA-1-ANTITRYPSIN 487 mg/dL (100 - 190)
--- NOTE | 2017-06-02 14:54 | PD.ID.CON ---
History of Present Illness Service ID Consult Requested By Dr Wang Reason for Consult fever Primary Care Physician Unknown Diagnoses: History of Present Illness 36 yo male with HTN and type B aortic dissection presented 2 weeks He was noted to have fevers up to 102-103 range for few days pt has been intubated since but then briefly extubated, but did not tolerate and re-intubated shortly He has problems with ventilation and now started on paralytics, sedation BAl with 24 K WBC Started on zosyn, vancomycin yday and no fever today. Significant leukocytosis 15 K, bandemia 21 % secretions are thick, bloody but not much In non oliguric renal failre Having large liquid BM Not tolerating tube feeds Review of Systems ROS Limitations: Clinical Condition, Intubated, Altered Mental Status (sedated , paralysed) Past Family Social History Allergies: Coded Allergies: No Known Allergies (Unverified , 05/19/17) Past Medical History HTN Obstructive sleep apnea for which he does not use a CPAP machine. Past Surgical History inguinal hernia Active Ordered Medications Medications where reviewed in EMR Antibiotics Include: zosyn vanco Family History Reviewed in the chart. No family history of vascular disease, coronary disease , aortic disease. Social History Occasional EtOH. Denies tobacco or other drugs. Physical Exam Vital Signs Vital Signs Date Time Temp Pulse Resp B/P (MAP) Pulse Ox O2 Delivery O2 Flow Rate FiO2 06/02/17 12:09 55 06/02/17 11:57 96 55 06/02/17 11:03 98.6 74 16 114/66 (82) 95 120/56 (77) 06/02/17 11:03 74 06/02/17 11:02 95 60 06/02/17 08:02 60 06/02/17 07:51 92 60 06/02/17 07:43 98.8 77 16 122/68 (86) 90 145/66 (92) 06/02/17 07:39 77 06/02/17 07:38 90 60 06/02/17 05:05 98 65 06/02/17 04:19 98 75 06/02/17 04:00 98 75 06/02/17 04:00 99.5 74 16 98/60 (73) 98 136/63 (87) 06/02/17 04:00 75 06/02/17 04:00 74 06/02/17 03:10 95 80 06/02/17 03:10 80 06/02/17 03:08 95 80 06/02/17 00:37 93 70 06/02/17 00:00 80 06/02/17 00:00 70 06/02/17 00:00 06/02/17 00:00 100.0 80 16 104/64 (77) 96 128/65 (86) 06/02/17 00:00 96 70 06/01/17 22:02 96 80 06/01/17 22:00 97 80 06/01/17 22:00 80 06/01/17 21:30 97 80 06/01/17 21:00 90 06/01/17 21:00 97 90 06/01/17 20:35 98 90 06/01/17 20:00 95 100 06/01/17 20:00 91 Mechanical Ventilator 100 06/01/17 20:00 99.9 76 16 103/64 (77) 91 128/60 (82) 06/01/17 20:00 100 06/01/17 20:00 06/01/17 20:00 76 06/01/17 19:00 93 Mechanical Ventilator 60 06/01/17 18:35 80 06/01/17 16:45 64 108/61 06/01/17 16:04 94 60 06/01/17 15:32 92 Mechanical Ventilator 80 06/01/17 15:32 80 06/01/17 15:29 98.7 64 16 106/61 (76) 92 115/57 (76) 06/01/17 15:00 68 Physical Exam CONSTITUTIONAL/GENERAL: This is an adequately nourished patient, sedated int'd on vent TUBES/LINES/DRAINS: SKIN: No jaundice, rashes, or lesions. Skin temperature appropriate. Not diaphoretic. HEAD: Atraumatic. Normocephalic. EYES: Pupils equal and round and reactive. Extraocular motions intact. No scleral icterus. No injection or drainage. Fundi not examined. ENT: Hearing not tested. Nose without bleeding or purulent drainage. Throat without visible erythema, exudates, masses, or lesions. NECK: Trachea midline. Supple, nontender. CARDIOVASCULAR: Regular rate and rhythm without murmurs, gallops, or rubs. No JVD. Peripheral pulses symmetric. RESPIRATORY/CHEST: Symmetric, unlabored respirations. Clear to auscultation. Breath sounds equal bilaterally. No wheezes, rales, or rhonchi. GASTROINTESTINAL: Abdomen soft, non-tender, nondistended. No hepato-splenomegaly , or palpable masses. No guarding. Bowel sounds present. GENITOURINARY: Without palpable bladder distension. Ledesma catheter in place with very light yellow MUSCULOSKELETAL: Extremities without clubbing, cyanosis, or edema. No joint tenderness or effusion noted. No calf tenderness. No mottling or clubbing. LYMPHATICS: No palpable cervical or supraclavicular adenopathy. NEUROLOGICAL: sedated and paralysed PSYCHIATRIC: unable to assess Laboratory Laboratory Tests Test 06/01/17 14:33 06/02/17 02:45 06/02/17 04:40 06/02/17 09:35 Blood Gas Puncture Site LT RADIAL LT RADIAL Blood Gas Patient Temperature 98.6 98.6 Blood Gas HCO3 21 22 Blood Gas Base Excess -2.6 -4.6 Blood Gas Oxygen Saturation 92 88 Arterial Blood pH 7.42 7.24 Arterial Blood Partial Pressure CO2 34 53 Arterial Blood Partial Pressure O2 92 83 Arterial Blood Oxygen Content 10.9 10.3 Arterial Blood Carboxyhemoglobin 0.6 1.5 Arterial Blood Methemoglobin 3.4 4.3 Blood Gas Hemoglobin 8.3 8.2 Oxygen Delivery Device VENTILATOR VENTILATOR Blood Gas Ventilator Setting SEE COMMENTS PC/AC Blood Gas Inspired Oxygen 60 70 White Blood Count 15.5 Red Blood Count 2.99 Hemoglobin 8.2 Hematocrit 24.3 Mean Corpuscular Volume 81.3 Mean Corpuscular Hemoglobin 27.4 Mean Corpuscular Hemoglobin Concent 33.7 Red Cell Distribution Width 15.8 Platelet Count 284 Mean Platelet Volume 8.9 Neutrophils (%) (Auto) 75.4 Lymphocytes (%) (Auto) 14.1 Monocytes (%) (Auto) 4.6 Eosinophils (%) (Auto) 4.9 Basophils (%) (Auto) 1.0 Neutrophils # (Auto) 11.7 Lymphocytes # (Auto) 2.2 Monocytes # (Auto) 0.7 Eosinophils # (Auto) 0.8 Basophils # (Auto) 0.2 CBC Comment AUTO DIFF Differential Total Cells Counted 100 Neutrophils % (Manual) 63 Band Neutrophils % 21 Lymphocytes % 6 Eosinophils % 9 Neutrophils # (Manual) 13.2 Metamyelocytes 1 Nucleated Red Blood Cells 8 Differential Comment FINAL DIFF MANUAL Platelet Estimate NORMAL Platelet Morphology Comment ENLARGED Red Cell Morphology Comment Hematology Comments Blood Urea Nitrogen 65 Creatinine 5.40 Random Glucose 123 Total Protein 7.2 Albumin 1.8 Calcium Level 7.0 Phosphorus Level 5.8 Magnesium Level 2.2 Alkaline Phosphatase 115 Aspartate Amino Transf (AST/SGOT) 1116 Alanine Aminotransferase (ALT/SGPT) 1499 Total Bilirubin 2.5 Sodium Level 142 Potassium Level 3.2 Chloride Level 105 Carbon Dioxide Level 22.9 Anion Gap 14 Estimat Glomerular Filtration Rate 15 Lactic Acid Level 0.2 Protein Corrected Calcium 7.0 Ammonia 42 Total Creatine Kinase 3695 3451 Creatine Kinase MB 5.2 6.5 Creatine Kinase MB % 0.1 0.2 Lipase 340 Triglycerides Level 1632 Test 06/02/17 10:50 Blood Gas Puncture Site LT RADIAL Blood Gas Patient Temperature 98.6 Blood Gas HCO3 21 Blood Gas Base Excess -4.0 Blood Gas Oxygen Saturation 92 Arterial Blood pH 7.34 Arterial Blood Partial Pressure CO2 40 Arterial Blood Partial Pressure O2 98 Arterial Blood Oxygen Content 10.4 Arterial Blood Carboxyhemoglobin 1.5 Arterial Blood Methemoglobin 3.6 Blood Gas Hemoglobin 7.9 Oxygen Delivery Device VENTILATOR Blood Gas Ventilator Setting 16/IP24/PEEP15 Blood Gas Inspired Oxygen 60 Date/Time Source Procedure Growth Status 06/01/17 00:02 Blood Peripheral Aerobic Blood Culture - Preliminary NO GROWTH IN 1 DAY Resulted 06/01/17 00:02 Blood Peripheral Anaerobic Blood Culture - Final QNS - SEE AEROBE REPORT Resulted 06/01/17 05:00 Sputum Endotracheal Gram Stain - Final Resulted 06/01/17 05:00 Sputum Endotracheal Sputum Culture - Preliminary MODERATE GROWTH NORMAL RESPIRATORY FL... Resulted 05/25/17 12:30 Urine Catheterized Urine Urine Culture - Final NO GROWTH IN 48 HOURS. Complete Result Diagram: 06/02/17 0440 06/02/17 0440 Imaging Last Impressions Chest X-Ray 06/02/17 0600 Signed Impressions: Service Date/Time: May 05:30 - CONCLUSION: Slight improvement in the right upper lobe component of the bilateral pulmonary infiltrates. Rudy Cervantes Jr., MD Abdomen X-Ray 06/02/17 0000 Signed Impressions: Service Date/Time: May 10:18 - CONCLUSION: NG tip in stomach. Left basilar airspace disease. Elevated right hemidiaphragm. Bowel gas pattern demonstrates mild ileus Tc Varghese MD Liver Ultrasound 3/13/18 1434 Signed Impressions: Service Date/Time: Wednesday, May 31, 2017 14:40 - CONCLUSION: 1. Interval apparent hepatomegaly with diffusely increased hepatic echogenicity. Given the acuity of findings, findings may reflect acute hepatitis or congestive hepatopathy. 2. Persistently contracted gallbladder which accentuates the gallbladder wall with persistent gallbladder wall thickening and trace pericholecystic fluid. These findings are commonly seen in the setting of liver disease although differential considerations include acalculous cholecystitis. HIDA scan may be performed for better evaluation as clinically appropriate. 3. Andrew Kraft MD Lung Scan-VQ Nuclear Medicine 05/23/17 0000 Signed Impressions: Service Date/Time: Tuesday, May 23, 2017 10:22 - CONCLUSION: Low probability of pulmonary embolism. Buddy Harrison MD FACR Lower Extremity Ultrasound 05/23/17 0000 Signed Impressions: Service Date/Time: Tuesday, May 23, 2017 08:02 - CONCLUSION: Negative for deep venous thrombosis. Buddy Harrison MD FACR Head CT 05/23/17 0000 Signed Impressions: Service Date/Time: Tuesday, May 23, 2017 03:56 - CONCLUSION: 1. Examination quality is degraded by motion artifact. 2. No definite acute finding is identified. There is a 3 mm punctate area of high density in the left frontal periventricular white matter. This could represent small focus of acute blood products. Suggest attention to this on followup imaging. Wiliam Buck MD Brain MRI 05/23/17 0000 Signed Impressions: Service Date/Time: Tuesday, May 23, 2017 15:59 - CONCLUSION: 1. 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 2. No hemorrhage observe. 3. Pansinus disease. Rudy Cervantes Jr., MD Aorta CTA 05/23/17 0000 Signed Impressions: Service Date/Time: Tuesday, May 23, 2017 03:58 - CONCLUSION: 1. 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 The dissection extends to the abdominal aorta and terminates in the common iliac arteries bilaterally. The abdominal vessels arise from both the true and false lumens and demonstrate good opacification. Suggest correlating with the patient's prior imaging study which documents the dissection. 2. 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 3. There is stranding of the periaortic fat adjacent to the arch aneurysm. 4. There are small bilateral pleural effusions, left larger than right, with bilateral volume loss and/or airspace consolidation bilaterally. Wiliam Buck MD Abdomen Ultrasound 05/23/17 0000 Signed Impressions: Service Date/Time: Tuesday, May 23, 2017 17:22 - CONCLUSION: 1. Gall bladder wall thickening and possible pericholecystic fluid without evidence of gallstones. May consider perform hepatic biliary tract scan to evaluate for acalculous cholecystitis. 2. No focal abnormality seen within the liver. Rudy Pollock MD Assessment and Plan Assessment and Plan Type B AAA dissection PNA Acute VDRF - failure to wean Non oliguric ARF Fever Leukocytosis, bandemia Abx associated ileus , diarrhea - r/o c.diff cont zosyn, vanco for now will dc abx based on clx reports r/o C.diff Discussed Condition With Nalini Bliss MD Jun 02, 2017 14:54
--- NOTE | 2017-06-02 16:12 | HHI.GIFU ---
Subjective Remarks Pt remains on sedation and mechanically ventilated OG to LIWS with 300 mL of output Abdomen distended, soft (Yeni Mcdonnell LINEWORKER) Objective Vitals I&O Vital Signs Date Time Temp Pulse Resp B/P (MAP) Pulse Ox O2 Delivery O2 Flow Rate FiO2 06/02/17 15:08 98.7 71 16 108/68 (81) 95 124/59 (80) 06/02/17 15:08 71 06/02/17 15:08 97 50 06/02/17 12:09 55 06/02/17 11:57 96 55 06/02/17 11:03 98.6 74 16 114/66 (82) 95 120/56 (77) 06/02/17 11:03 74 06/02/17 11:02 95 60 06/02/17 08:02 60 06/02/17 07:51 92 60 06/02/17 07:43 98.8 77 16 122/68 (86) 90 145/66 (92) 06/02/17 07:39 77 06/02/17 07:38 90 60 06/02/17 05:05 98 65 06/02/17 04:19 98 75 06/02/17 04:00 98 75 06/02/17 04:00 99.5 74 16 98/60 (73) 98 136/63 (87) 06/02/17 04:00 75 06/02/17 04:00 74 06/02/17 03:10 95 80 06/02/17 03:10 80 06/02/17 03:08 95 80 06/02/17 00:37 93 70 06/02/17 00:00 80 06/02/17 00:00 70 06/02/17 00:00 06/02/17 00:00 100.0 80 16 104/64 (77) 96 128/65 (86) 06/02/17 00:00 96 70 06/01/17 22:02 96 80 06/01/17 22:00 97 80 06/01/17 22:00 80 06/01/17 21:30 97 80 06/01/17 21:00 90 06/01/17 21:00 97 90 06/01/17 20:35 98 90 06/01/17 20:00 95 100 06/01/17 20:00 91 Mechanical Ventilator 100 06/01/17 20:00 99.9 76 16 103/64 (77) 91 128/60 (82) 06/01/17 20:00 100 06/01/17 20:00 06/01/17 20:00 76 06/01/17 19:00 93 Mechanical Ventilator 60 06/01/17 18:35 80 06/01/17 16:45 64 108/61 06/01/17 16:04 94 60 I/O 06/01/17 06/01/17 06/01/17 06/02/17 06/02/17 06/02/17 07:00 15:00 23:00 07:00 15:00 23:00 Intake Total 2677.8 ml 97 ml 2636 ml 920 ml 1130 ml Output Total 2150 ml 1955 ml 2340 ml Balance 527.8 ml 97 ml 681 ml -1420 ml 1130 ml Intake Oral 0 ml 0 ml 0 ml IV Total 2517.8 ml 97 ml 2546 ml 920 ml 1130 ml Tube Feeding 10 ml 0 ml 0 ml Tube Irrigant 150 ml 90 ml Output Urine Total 1850 ml 1155 ml 1740 ml Gastric Drainage Total 300 ml 800 ml 600 ml # Bowel Movements 0 0 0 Laboratory Laboratory Tests Test 06/02/17 02:45 06/02/17 04:40 06/02/17 09:35 06/02/17 10:50 Blood Gas Puncture Site LT RADIAL LT RADIAL Blood Gas Patient Temperature 98.6 98.6 Blood Gas HCO3 22 21 Blood Gas Base Excess -4.6 -4.0 Blood Gas Oxygen Saturation 88 92 Arterial Blood pH 7.24 7.34 Arterial Blood Partial Pressure CO2 53 40 Arterial Blood Partial Pressure O2 83 98 Arterial Blood Oxygen Content 10.3 10.4 Arterial Blood Carboxyhemoglobin 1.5 1.5 Arterial Blood Methemoglobin 4.3 3.6 Blood Gas Hemoglobin 8.2 7.9 Oxygen Delivery Device VENTILATOR VENTILATOR Blood Gas Ventilator Setting PC/AC 16/IP24/PEEP15 Blood Gas Inspired Oxygen 70 60 White Blood Count 15.5 Red Blood Count 2.99 Hemoglobin 8.2 Hematocrit 24.3 Mean Corpuscular Volume 81.3 Mean Corpuscular Hemoglobin 27.4 Mean Corpuscular Hemoglobin Concent 33.7 Red Cell Distribution Width 15.8 Platelet Count 284 Mean Platelet Volume 8.9 Neutrophils (%) (Auto) 75.4 Lymphocytes (%) (Auto) 14.1 Monocytes (%) (Auto) 4.6 Eosinophils (%) (Auto) 4.9 Basophils (%) (Auto) 1.0 Neutrophils # (Auto) 11.7 Lymphocytes # (Auto) 2.2 Monocytes # (Auto) 0.7 Eosinophils # (Auto) 0.8 Basophils # (Auto) 0.2 CBC Comment AUTO DIFF Differential Total Cells Counted 100 Neutrophils % (Manual) 63 Band Neutrophils % 21 Lymphocytes % 6 Eosinophils % 9 Neutrophils # (Manual) 13.2 Metamyelocytes 1 Nucleated Red Blood Cells 8 Differential Comment FINAL DIFF MANUAL Platelet Estimate NORMAL Platelet Morphology Comment ENLARGED Red Cell Morphology Comment Hematology Comments Blood Urea Nitrogen 65 Creatinine 5.40 Random Glucose 123 Total Protein 7.2 Albumin 1.8 Calcium Level 7.0 Phosphorus Level 5.8 Magnesium Level 2.2 Alkaline Phosphatase 115 Aspartate Amino Transf (AST/SGOT) 1116 Alanine Aminotransferase (ALT/SGPT) 1499 Total Bilirubin 2.5 Sodium Level 142 Potassium Level 3.2 Chloride Level 105 Carbon Dioxide Level 22.9 Anion Gap 14 Estimat Glomerular Filtration Rate 15 Lactic Acid Level 0.2 Protein Corrected Calcium 7.0 Ammonia 42 Total Creatine Kinase 3695 3451 Creatine Kinase MB 5.2 6.5 Creatine Kinase MB % 0.1 0.2 Lipase 340 Triglycerides Level 1632 Date/Time Source Procedure Growth Status 06/01/17 00:02 Blood Peripheral Aerobic Blood Culture - Preliminary NO GROWTH IN 1 DAY Resulted 06/01/17 00:02 Blood Peripheral Anaerobic Blood Culture - Final QNS - SEE AEROBE REPORT Resulted 06/01/17 05:00 Sputum Endotracheal Gram Stain - Final Resulted 06/01/17 05:00 Sputum Endotracheal Sputum Culture - Preliminary MODERATE GROWTH NORMAL RESPIRATORY FL... Resulted 05/25/17 12:30 Urine Catheterized Urine Urine Culture - Final NO GROWTH IN 48 HOURS. Complete Imaging Last Impressions Chest X-Ray 06/02/17 0600 Signed Impressions: Service Date/Time: May 05:30 - CONCLUSION: Slight improvement in the right upper lobe component of the bilateral pulmonary infiltrates. Rudy Cervantes Jr., MD Abdomen X-Ray 06/02/17 0000 Signed Impressions: Service Date/Time: May 10:18 - CONCLUSION: NG tip in stomach. Left basilar airspace disease. Elevated right hemidiaphragm. Bowel gas pattern demonstrates mild ileus Tc Varghese MD Liver Ultrasound 05/31/17 1434 Signed Impressions: Service Date/Time: Wednesday, May 31, 2017 14:40 - CONCLUSION: 1. Interval apparent hepatomegaly with diffusely increased hepatic echogenicity. Given the acuity of findings, findings may reflect acute hepatitis or congestive hepatopathy. 2. Persistently contracted gallbladder which accentuates the gallbladder wall with persistent gallbladder wall thickening and trace pericholecystic fluid. These findings are commonly seen in the setting of liver disease although differential considerations include acalculous cholecystitis. HIDA scan may be performed for better evaluation as clinically appropriate. 3. Andrew Kraft MD Lung Scan-V Nuclear Medicine 05/23/17 0000 Signed Impressions: Service Date/Time: Tuesday, May 23, 2017 10:22 - CONCLUSION: Low probability of pulmonary embolism. Buddy Harrison MD FACR Lower Extremity Ultrasound 05/23/17 0000 Signed Impressions: Service Date/Time: Tuesday, May 23, 2017 08:02 - CONCLUSION: Negative for deep venous thrombosis. Buddy Harrison MD FACR Head CT 05/23/17 0000 Signed Impressions: Service Date/Time: Tuesday, May 23, 2017 03:56 - CONCLUSION: 1. Examination quality is degraded by motion artifact. 2. No definite acute finding is identified. There is a 3 mm punctate area of high density in the left frontal periventricular white matter. This could represent small focus of acute blood products. Suggest attention to this on followup imaging. Wiliam Buck MD Brain MRI 05/23/17 0000 Signed Impressions: Service Date/Time: Tuesday, May 23, 2017 15:59 - CONCLUSION: 1. 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 2. No hemorrhage observe. 3. Pansinus disease. Rudy Cervantes Jr., MD Aorta CTA 05/23/17 0000 Signed Impressions: Service Date/Time: Tuesday, May 23, 2017 03:58 - CONCLUSION: 1. 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 The dissection extends to the abdominal aorta and terminates in the common iliac arteries bilaterally. The abdominal vessels arise from both the true and false lumens and demonstrate good opacification. Suggest correlating with the patient's prior imaging study which documents the dissection. 2. 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 3. There is stranding of the periaortic fat adjacent to the arch aneurysm. 4. There are small bilateral pleural effusions, left larger than right, with bilateral volume loss and/or airspace consolidation bilaterally. Wiliam Buck MD Abdomen Ultrasound 05/23/17 0000 Signed Impressions: Service Date/Time: Tuesday, May 23, 2017 17:22 - CONCLUSION: 1. Gall bladder wall thickening and possible pericholecystic fluid without evidence of gallstones. May consider perform hepatic biliary tract scan to evaluate for acalculous cholecystitis. 2. No focal abnormality seen within the liver. Rudy Pollock MD Physical Exam HEENT: Normocephalic; atraumatic; no jaundice. CHEST: Synchronized with vent, mechanically ventilated via ETT CARDIAC: RRR ABDOMEN: Distended, soft, bowel sounds active. NGT to LIWS EXTREMITIES: No clubbing, cyanosis, + edema. SKIN: Normal; no rash; no jaundice. 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 LFTs were WNL on day of admission and have been trending up with sudden large increase today. US 05/23 showed GB wall t hickening and poss pericholecystic fluid, no stones. repeat US is pending. hepatitis panel neg. - bilat embolic CVA, HTN emergency, aortic dissection, PEA 05/23/17 2/2 COIR, per CCM 06/01/17 worsening creatinine. now with mild ileus per KUB. NGT to LIWS. US liver showed hepatomegaly, acute hepatitis vs congestion, liver dz vs cholecystitis. NH elevated 158 -- ?lactulose enemas?. hep panel negative, rest of liver w/u pending would give reglan for ileus but creatinine worsening. (06/02) --> Pt remains sedated and mechanically ventilated. LFTs trending down- ? etiology shocked liver vs medication vs congestive hepatomegaly Hepatitis panel negative. LEN and ASMA negative. AMA pending. Alpha-1 antitrypsin-487 Ceruloplasmin pending. AFP-2. Ammonia-42 [id number]. Liver US --> Interval apparent hepatomegaly with diffusely increased hepatic echogenicity. May reflect acute hepatitis vs hepatopathy. KUB (06/02) --> Bowel gas pattern demonstrates mild ileus. Pt still with NGT to LIWS. PLAN - Lactulose through OG - Liver work up pending - NGT to LIWS - Follow up KUB - Monitor stool count - Further recommendations based on clinical course and results of above Pt has been seen and examined by myself and Dr. Martin and this note is written on his behalf (Yeni Mcdonnell) Physician Comments Agree with above. Will follow up with you. (Andressa Martin MD) Yeni Mcdonnell Jun 02, 2017 16:12 Andressa Martin MD Jun 02, 2017 21:15
[2017-06-02] MEDS: RESP: ALBUTEROL 2.5 MG/3 ML NEB (PRN) NEB (20:35)
[2017-06-03] VITALS (18 sets, daily range): BP systolic 91–145; BP diastolic 49–72; PULSE 63–71; RESP 16; TEMP 98.3–98.8; O2SAT 92–97
[2017-06-03] MEDS: POTASSIUM CHLOR 20 MEQ PREMIX 100 ML IV SCH
[2017-06-03] MEDS: FUROSEMIDE 40 MG/4 ML VIAL IV PUSH SCH ×3 (00:09→16:57)
[2017-06-03] MEDS: LACTULOSE SYRUP 20 GM/30 ML CUP OG-TUBE SCH ×5 (00:09→23:36)
[2017-06-03] MEDS: MIDAZOLAM 100 MG/100 ML INJ 100 ML IV PRN ×3 (00:10→21:40)
[2017-06-03] MEDS: DILTIAZEM HCL 90 MG TAB PO SCH ×5 (00:10→23:36)
[2017-06-03] MEDS: fentaNYL DRIP 250 ML IV PRN ×3 (01:54→23:11)
[2017-06-03] MEDS: CISATRACURIUM INJ 100 MG in SODIUM CHLOR 0.9% 250 ML INJ 250 ML IV PRN ×3 (02:26→09:44)
[2017-06-03] MEDS: CHLORHEXIDINE GLUCONATE 2 % 1 PACK (2 CLOTHS) TOP SCH (04:00)
[2017-06-03] MEDS: RESP: ALBUTEROL 2.5 MG/3 ML NEB (PRN) NEB ×2 (04:02→07:54)
--- NOTE | 2017-06-03 05:06 | RADRPT ---
EXAM DATE/TIME: 06/03/2017 04:16 [facility] COMPARISON: CHEST SINGLE AP, June 02, 2017, 5:30. INDICATIONS : VDRF. MEDICAL HISTORY : Hypertension. Renal failure, acute. CVA Inguinal hernia SURGICAL HISTORY : Hernia repair ENCOUNTER: Subsequent ACUITY: 2 weeks PAIN SCORE: Non-responsive. LOCATION: Bilateral chest FINDINGS: A single view of the chest demonstrates interval complete opacification of the right upper lobe. Pers istent left basilar consolidation/effusion with patchy air space disease above the right hemidiaphrag m. Heart size is normal. Endotracheal, nasogastric tubes and a left IJ central venous catheter are un changed in position. CONCLUSION: 1. Interval complete opacification of the right upper lobe. 2. Stable left basilar consolidation/effusion and stable patchy airspace disease medially in the righ t lower lung field. 3. Stable position of life support tubes. Rodrigue Miller MD on June 03, 2017 at 5:03 Board Certified Radiologist. This report was verified electronically.
[2017-06-03 05:29] LABS: AUTOMATED NEUTROPHIL # 13.5 TH/MM3 (1.8-7.7); BASOPHIL # 0.1 TH/MM3 (0-0.2); BASOPHIL % 0.5 % (0.0-2.0); EOSINOPHIL # 0.7 TH/MM3 (0-0.4); EOSINOPHIL % 4.3 % (0.0-4.0); HEMATOCRIT 23.4 % (39.0-51.0); HEMOGLOBIN 8.4 GM/DL (13.0-17.0); LYMPH % 10.4 % (9.0-44.0); LYMPHOCYTE # 1.8 TH/MM3 (1.0-4.8); MEAN CELL VOLUME 79.9 FL (80.0-100.0); MEAN CORPUSCULAR HEMOGLOBIN 28.6 PG (27.0-34.0); MEAN CORPUSCULAR HGB CONC 35.8 % (32.0-36.0); MEAN PLATELET VOLUME 9.3 FL (7.0-11.0); MONOCYTE # 0.8 TH/MM3 (0-0.9); NEUT % 79.8 % (16.0-70.0); PLATELET COUNT 280 TH/MM3 (150-450); RED BLOOD COUNT 2.93 MIL/MM3 (4.50-5.90); RED CELL DISTRIBUTION WIDTH 15.7 % (11.6-17.2); WHITE BLOOD COUNT 16.9 TH/MM3 (4.0-11.0)
[2017-06-03] MEDS: EPOPROSTENOL NEB SOLUTION 50 NG/KG/MIN 100 ML NEB SCH ×8 (05:31→23:11)
[2017-06-03] MEDS: ARTIFICIAL TEARS OPTH SOLN 15 ML BTL EACH EYE SCH ×3 (05:32→21:35)
[2017-06-03] MEDS: cloNIDine HCL 0.3 MG TAB PO SCH ×3 (05:32→21:35)
[2017-06-03] MEDS: PIPERACIL-TAZO 2.25 GM PREMIX 50 ML IV SCH ×3 (05:32→20:31)
[2017-06-03] MEDS: INSULIN NovoLIN REGULAR SUPPLEMENTAL SCALE SQ SCH ×4 (05:33→17:49)
[2017-06-03 05:41] LABS: ALBUMIN 1.7 GM/DL (3.4-5.0); BICARBONATE 22.5 MEQ/L (21.0-32.0); BLOOD UREA NITROGEN 65 MG/DL (7-18); CHLORIDE 109 MEQ/L (98-107); CREATININE 5.64 MG/DL (0.60-1.30); GLOMERULAR FILTRATION RATE 14 ML/MIN (>89); GLUCOSE,RANDOM 90 MG/DL (74-106); SODIUM (NA) 145 MEQ/L (136-145)
[2017-06-03 05:57] LABS: ALKALINE PHOSPHATASE 111 U/L (45-117); ALT (GPT) 1088 U/L (12-78); AST (GOT) 672 U/L (15-37); RANDOM VANCOMYCIN 18.3 COMMENT; TOTAL BILIRUBIN ADULT 2.4 MG/DL (0.2-1.0)
[2017-06-03 06:36] LABS: TOTAL PROTEIN 6.1 GM/DL (6.4-8.2)
--- NOTE | 2017-06-03 07:38 | HHI.CCPN ---
Subjective Remarks/Hospital Course 05/19: Is a 36-year-old male with a history of hypertension who is on vacation from the [place] area who did not take his antihypertensives today because he is on vacation, and was having sexual intercourse when he had sudden onset of severe substernal radiating to the back chest pain earlier today. 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 He was emergently transferred to [facility] for further management. I evaluated the patient on arrival to the ICU by EVAC. Patient denies abdominal pain. Still endorses chest pain although this is improving. Patient denies any other symptoms. CT chest abdomen pelvis was reviewed and reviewed with myself and Dr. Guzman and does demonstrate a type B dissection. 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 Initial laboratory evidence demonstrates a lactate of 1.3, creatinine 1.2, normal LFTs. 05/20: On home C Pap. Urine output 30 cc/h currently. Remains on esmolol and labetalol drips. Remains drowsy though arousable. +4.4 L 05/21: Resting comfortably on nasal cannula. Awake and alert currently. Denies any shortness of breath or chest pain currently. 05/22: AAO x3, resting comfortably. 05/23 Patient went into PEA arrest early this morning now sedated with Diprivan and intubated. Off Esmolol drip. 05/24 Patient is sedated with Diprivan and intubated. On Labetolol drip. MRI brain yesterday showed multiple small infracts, no hemorrhage. 05/25 Patient remains intubated and sedated. T: 100.5 last night. Renal function is worsening with Cr: 3.6 from 3.4 and UOP: 2650ml in 24 hrs. 05/26 No events overnight. Sedated and intubated. Afebrile. Cr: 3.62 , UOP: 1950ml in 24 hrs 05/27 Patient was extubated yesterday placed on BIPAP overnight. Cr: 3.42 today , UOP: 1800 ml in 24 hrs 05/28 Extubated yesterday and per report was compliant with Bipap overnight Remains on esmolol drip 200 mcg/kg/min and SBP in 140s. ZULY, probable ATN non- oliguric however I>>0 with significant intake from MIVF as well as 180 mL/hr from esmolol drip. IVF d/c per nephrology and transitioning off esmolol to minimize fluid. Hugo now per my discussion with Dr. Thornton. He is tachypneic, obtained ABG with hypercapnea on simple mask. Placing On Bipap. at bedside requesting eventual transfer to [place], though she realized he is not stable for that yet. 05/29: Remains on BiPAP since 299 with increasing respiratory rates. Will attempt a more aggressive diuresis. We started on esmolol drip due to persistent tachycardia and unable to reach target blood pressure and heart rate requirements. At high risk for reintubation. 05/30: Remained hypotensive overnight. This a.m. desaturated, tachypneic requiring high percent on BiPAP hence intubated by credit union manager. Will require bronchoscopy this afternoon. Continue with aggressive diuresis. Broad antibiotic coverage. Start tube feeding. The systolic blood pressure better controlled while intubated on propofol and fentanyl drips. 05/31: T-max 102.8. Currently 99.6. FiO2 down to 80%. The same noted elevated transaminases AST of 2674. ALT of 1590. Creatinine is increased to 3.07 to 4.36. +2 L past 24 hours. One bowel movement. Noted prior gallbladder wall thickening on previous ultrasound. We will repeat today Subjective 06/01: T-max 102.5. Currently 98.9. Desaturate overnight resolved currently FiO2 of 80%. 4500 cc urine output. Creatinine continues to rise currently 4.9. CPK currently 6165. We will discontinue propofol with hepatomegaly, rhabdomyolysis possibly indicative propofol infusion syndrome. 06/02 Patient remains intubated and sedated. On Fentanyl, Versed and Nimbex. T: 100.0 at midnight. On PC/AC with PEEP:15, FIO2 50% Renal function continue to decline with Cr: 5.40 from 4.91 and UOP: 2895 ml in 24 hrs 06/03 Patient remains intubated and sedated with Versed, Fentanyl drips. Remains on Nimbex and Flolan. Cr: 5.6 from 5.4 with UOP: 3790 ml in 24 hrs. Objective Vital Signs Date Time Temp Pulse Resp B/P (MAP) Pulse Ox O2 Delivery O2 Flow Rate FiO2 06/03/17 06:22 97 80 06/03/17 04:00 Mechanical Ventilator 06/03/17 00:00 98.8 71 16 104/58 (73) 111/49 (69) Intake and Output 06/03/17 06/03/17 06/03/17 07:59 15:59 23:59 Intake Total 1170 ml Balance 1170 ml Result Diagram: 06/03/17 0455 06/03/17 0455 Other Results Laboratory Tests Test 06/02/17 09:35 06/02/17 10:50 06/02/17 18:30 06/03/17 04:55 Total Creatine Kinase 3451 U/L 2219 U/L Creatine Kinase MB 6.5 NG/ML 3.2 NG/ML Creatine Kinase MB % 0.2 % 0.1 % Triglycerides Level 1632 MG/DL Blood Gas Puncture Site LT RADIAL Blood Gas Patient Temperature 98.6 Blood Gas HCO3 21 mmol/L Blood Gas Base Excess -4.0 mmol/L Blood Gas Oxygen Saturation 92 % Arterial Blood pH 7.34 Arterial Blood Partial Pressure CO2 40 mmHg Arterial Blood Partial Pressure O2 98 mmHg Arterial Blood Oxygen Content 10.4 Vol % Arterial Blood Carboxyhemoglobin 1.5 % Arterial Blood Methemoglobin 3.6 % Blood Gas Hemoglobin 7.9 G/DL Oxygen Delivery Device VENTILATOR Blood Gas Ventilator Setting 16/IP24/PEEP15 Blood Gas Inspired Oxygen 60 % Potassium Level 2.9 MEQ/L 3.2 MEQ/L White Blood Count 16.9 TH/MM3 Red Blood Count 2.93 MIL/MM3 Hemoglobin 8.4 GM/DL Hematocrit 23.4 % Mean Corpuscular Volume 79.9 FL Mean Corpuscular Hemoglobin 28.6 PG Mean Corpuscular Hemoglobin Concent 35.8 % Red Cell Distribution Width 15.7 % Platelet Count 280 TH/MM3 Mean Platelet Volume 9.3 FL Neutrophils (%) (Auto) 79.8 % Lymphocytes (%) (Auto) 10.4 % Monocytes (%) (Auto) 5.0 % Eosinophils (%) (Auto) 4.3 % Basophils (%) (Auto) 0.5 % Neutrophils # (Auto) 13.5 TH/MM3 Lymphocytes # (Auto) 1.8 TH/MM3 Monocytes # (Auto) 0.8 TH/MM3 Eosinophils # (Auto) 0.7 TH/MM3 Basophils # (Auto) 0.1 TH/MM3 CBC Comment AUTO DIFF Blood Urea Nitrogen 65 MG/DL Creatinine 5.64 MG/DL Random Glucose 90 MG/DL Total Protein 6.1 GM/DL Albumin 1.7 GM/DL Calcium Level 8.0 MG/DL Alkaline Phosphatase 111 U/L Aspartate Amino Transf (AST/SGOT) 672 U/L Alanine Aminotransferase (ALT/SGPT) 1088 U/L Total Bilirubin 2.4 MG/DL Sodium Level 145 MEQ/L Chloride Level 109 MEQ/L Carbon Dioxide Level 22.5 MEQ/L Anion Gap 14 MEQ/L Estimat Glomerular Filtration Rate 14 ML/MIN Random Vancomycin Level 18.3 COMMENT Imaging Last Impressions Chest X-Ray 06/03/17 0600 Signed Impressions: Service Date/Time: Saturday, June 03, 2017 04:16 - CONCLUSION: 1. Interval complete opacification of the right upper lobe. 2. Stable left basilar consolidation/effusion and stable patchy airspace disease medially in the right lower lung field. 3. Stable position of life support tubes. Rodrigue Miller MD Abdomen X-Ray 06/02/17 0000 Signed Impressions: Service Date/Time: May 10:18 - CONCLUSION: NG tip in stomach. Left basilar airspace disease. Elevated right hemidiaphragm. Bowel gas pattern demonstrates mild ileus Tc Varghese MD Liver Ultrasound 05/31/17 1434 Signed Impressions: Service Date/Time: Wednesday, May 31, 2017 14:40 - CONCLUSION: 1. Interval apparent hepatomegaly with diffusely increased hepatic echogenicity. Given the acuity of findings, findings may reflect acute hepatitis or congestive hepatopathy. 2. Persistently contracted gallbladder which accentuates the gallbladder wall with persistent gallbladder wall thickening and trace pericholecystic fluid. These findings are commonly seen in the setting of liver disease although differential considerations include acalculous cholecystitis. HIDA scan may be performed for better evaluation as clinically appropriate. 3. Andrew Kraft MD Lung Scan-V Nuclear Medicine 05/23/17 0000 Signed Impressions: Service Date/Time: Tuesday, May 23, 2017 10:22 - CONCLUSION: Low probability of pulmonary embolism. Buddy Harrison MD FACR Lower Extremity Ultrasound 05/23/17 0000 Signed Impressions: Service Date/Time: Tuesday, May 23, 2017 08:02 - CONCLUSION: Negative for deep venous thrombosis. Buddy Harrison MD FACR Head CT 05/23/17 0000 Signed Impressions: Service Date/Time: Tuesday, May 23, 2017 03:56 - CONCLUSION: 1. Examination quality is degraded by motion artifact. 2. No definite acute finding is identified. There is a 3 mm punctate area of high density in the left frontal periventricular white matter. This could represent small focus of acute blood products. Suggest attention to this on followup imaging. Wiliam Buck MD Brain MRI 05/23/17 0000 Signed Impressions: Service Date/Time: Tuesday, May 23, 2017 15:59 - CONCLUSION: 1. 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 2. No hemorrhage observe. 3. Pansinus disease. Rudy Cervantes Jr., MD Aorta CTA 05/23/17 0000 Signed Impressions: Service Date/Time: Tuesday, May 23, 2017 03:58 - CONCLUSION: 1. 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 The dissection extends to the abdominal aorta and terminates in the common iliac arteries bilaterally. The abdominal vessels arise from both the true and false lumens and demonstrate good opacification. Suggest correlating with the patient's prior imaging study which documents the dissection. 2. 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 3. There is stranding of the periaortic fat adjacent to the arch aneurysm. 4. There are small bilateral pleural effusions, left larger than right, with bilateral volume loss and/or airspace consolidation bilaterally. Wiliam Buck MD Abdomen Ultrasound 05/23/17 0000 Signed Impressions: Service Date/Time: Tuesday, May 23, 2017 17:22 - CONCLUSION: 1. Gall bladder wall thickening and possible pericholecystic fluid without evidence of gallstones. May consider perform hepatic biliary tract scan to evaluate for acalculous cholecystitis. 2. No focal abnormality seen within the liver. Rudy Pollock MD Objective Remarks GENERAL: 36-year-old AA male resting in bed orotracheally intubated SKIN: Warm and dry, adequately perfused. HEAD: Normocephalic. EYES: Pupils 3 mm and reactive. No scleral icterus. No injection or drainage. NECK: Supple, trachea midline. No JVD or lymphadenopathy. Left IJ CVL is clean dry and intact CARDIOVASCULAR: Distant. RRR. S1, S2 no S4. Cannot appreciate murmurs, clicks , gallops or rubs RESPIRATORY: Coarse rhonchorous crackles appreciated throughout all lung [place] anterior-posterior bilaterally. No wheezing GASTROINTESTINAL: Abdomen soft, non-tender, nondistended. Hypoactive bowel sounds are appreciated MUSCULOSKELETAL: No cyanosis. Edema 2+ bilateral upper and lower extremities NEURO: Currently sedated on propofol and fentanyl drips. Positive gag and corneal reflex. Positive cough. 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 On Fentanyl, Versed infusion for sedation in addition patient is on Nimbex. Goal of RASS -2 Daily sedation vacation when appropriate Acetaminophen 650 mg by tube every 6 hours as needed fever discontinued due to elevated transaminases Evaluated by neurology/Dr. Espinosa MRI brain 05/23 revealed bilateral frontal embolic CVA CT brain: There is a 3 mm punctate area of high density in the left frontal periventricular white matter. This could represent small focus of acute blood products. EEG : Mild diffuse encephalopathy, no seizure activity Continue aspirin 162 mg p.o. daily. Okayed with neurology. CV: Hypertensive emergency Acute type B aortic dissection Elevated troponin PEA cardiac arrest 05/23/17, secondary to obstructive sleep apnea/obesity hypoventilation syndrome with Bipap nonadherence. CTA stable. VQ scan negative . Hyperlipidemia Monitor HR and BP keep MAP>65mmHg Currently on carvedilol 25 mg twice daily Diltiazem 90 mg every 6 hours Clonidine 0.3 mg every 8 hours Repeat echo 05/23: EF 60-65%, no RWMA Evaluated by cardiology, Dr. Bhakta on 05/24 due to troponin elevation. He attributed elevated troponin to PEA arrest, hypoxia, renal insufficiency. No further ischemic workup planned at this time. 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 The dissection extends to the abdominal aorta and terminates in the common iliac arteries bilaterally. The abdominal vessels arise from both the true and false lumens and demonstrate good opacification. Vascular surgery is following- Dr. Guzman Pulm: Obstructive sleep apnea Obesity hypoventilation syndrome Acute hypercapnic respiratory failure intubated 05/30 PC/ACIP:25, IT:1.9, PEEP:15, FIO2 80%, decrease FIO2 as kell. Ventilator bundle Bronchodilators, Duoneb Q4, add Mucomyst nebs On Flolan nebs Start solumederol 60mg Q8 V/Q scan: low prob PE CXR today- complete opacification of the right upper lobe. Stable left basilar consolidation/effusion and stable patchy airspace disease medially in the right lower lung field s/p bronch today showed mucous plugs/ thick secretions b/l, normal mucosa, no evidence of EBL, BAL performed RUL. Status post bronchoscopy 05/30 revealed no mucus plugging. Normal bronchial mucosa without lesions. No signs of bleeding. LEN negative Renal/: Nonoliguric acute kidney injury Rhabdo Likely secondary to ischemic ATN following cardiac arrest. Furosemide 40 mg IV every 8 hours Cr: 5.6 from 5.4 with UOP: 3790 ml in 24 hrs. Renal is following- Dr. Flannery US abdomen: No hydronephrosis. GI: Elevated transaminases Hypoalbuminemia Hyperammonia Patient had 3 BM', trickle feeds- Nepro @ 20ml/hr Famotidine 20 mg by tube daily for GI prophylaxis written to switch to 10 mg twice daily by pharmacy Docusate/senna 1 tablet twice daily, polyethylene glycol 17 g twice daily and lactulose 30 cc twice daily for bowel regimen. Monitor LFT's (trending down),Hep profile is negative Abdominal ultrasound 05/31 -market hepatic congestion. Contracted gallbladder with pericholecystic fluid. Possible acalculous cholecystitis recommend HIDA scan if clinically able. US abdomen: Gall bladder wall thickening and possible pericholecystic fluid without evidence of gallstones. Recommend HIDA scan if clinically indicated Lactulose 30 cc 4 times daily. Ammonia level 42 from 158 GI consult. Appreciate Heme: Leukocytosis Microcytic anemia Monitor CBC VQ scan negative 05/23 BLE u/s negative for DVT 05/23 ID: MSSA pneumonia On ceftriaxone 05/25-12 Previously on Zosyn 05/23-05/25. Abx day #10 for MSSA in sputum. Continue Vanco and Zosyn. Monitor for signs of infections ( Fever, WBC) ID is following Pertinent: 06/01 -sputum -pending 05/31/13 -blood cultures 2 -pending 05/30 -bronchoscopy -no growth 05/30 -sputum -rare WBC/budding yeast 05/30 -blood cultures 2 -pending 05/25 -blood cultures 2 -no growth to date 05/25 -urine culture -no growth to date 05/23 -sputum -MSSA 05/23 -blood cultures 2 -no growth to date Endo: Currently on sliding scale insulin NovUlin R medium regimen every 6 hours sliding scale. TSH 2.3 MSK: Elevated BMI Weight loss encouraged PROPH: SCDs /Heparin subcut q 12 hours for DVT prophylaxis. (Previous credit union manager documented discussion with Dr. Guzman who would be amenable to anticoagulation if felt to be indicated for stroke, Dr. Espinosa states currently recommends ASA at this time. ). ACCESS R IJ CVL 05/23- 05/31 Left IJ CVL placed 05/31 Radial arterial line placed 05/31 by respiratory therapy Critical Care: The total critical care time was 30 minutes. Time to perform other separately billable procedures was not included in the critical care time. Abner Elizabeth MD Jun 03, 2017 07:38
[2017-06-03] MEDS ORDERED: methylPREDNISolone SOD SUCC 125 MG/2 ML VIAL IV PUSH SCH (07:45)
[2017-06-03] MEDS: CHLORHEXIDINE 0.12% (ORAL KIT) 15 ML CUP MT SCH ×2 (07:51→19:58)
[2017-06-03] MEDS ORDERED: RESP: ACETYLCYSTEINE 10% 10 ML NEB NEB SCH (08:00)
[2017-06-03] MEDS ORDERED: POTASSIUM CHLOR 40 MEQ PREMIX 100 ML IV ONE (08:00)
[2017-06-03] MEDS: RESP: ALBUTEROL 2.5 MG/IPRATROPIUM 0.5 MG NEB (SCH) NEB ×5 (08:11→23:52)
[2017-06-03] MEDS: RESP: ACETYLCYSTEINE 10% 30 ML NEB NEB SCH ×5 (08:13→23:57)
[2017-06-03 08:14] LABS: BANDS 11 % (0-6); CORRECTED NUCLEATED RBC 5 /100 WBC (0-0); LYMPHOCYTES 5 % (9-44); METAMYELOCYTES 2 % (0-1); MONOCYTES 6 % (0-8); NEUTROPHIL # MANUAL DIFF 14.2 TH/MM3 (1.8-7.7); NUCLEATED RED BLOOD CELL 5 (0-0); POLYS (SEG NEUTROPHILS) 71 % (16-70)
[2017-06-03] MEDS: FAMOTIDINE 20 MG TAB NG SCH (08:52)
[2017-06-03] MEDS: CARVEDILOL 12.5 MG TAB PO SCH ×2 (08:53→20:31)
[2017-06-03] MEDS: ASPIRIN 81 MG CHEW TAB CHEW SCH (08:53)
[2017-06-03] MEDS: POLYETHYLENE GLYCOL 17 GM PKG NG SCH ×2 (08:54→20:32)
[2017-06-03] MEDS: DOCUSATE SODIUM 50 MG/SENNA 8.6 MG TAB PO SCH ×2 (08:54→20:32)
[2017-06-03] MEDS: HEPARIN SODIUM - SQ 10,000 UNITS/ML VIAL SQ SCH ×2 (08:54→20:32)
[2017-06-03] MEDS: SODIUM CHLORIDE 0.9% FLUSH 10 ML FLUSH IV FLUSH SCH (08:55)
--- NOTE | 2017-06-03 10:03 | RADRPT ---
EXAM DATE/TIME: 06/03/2017 09:00 [place] COMPARISON: CHEST SINGLE AP, June 03, 2017, 4:16. INDICATIONS : Post bronchoscopy. MEDICAL HISTORY : Hypertension. Aortic dissection. SURGICAL HISTORY : None. ENCOUNTER: Subsequent ACUITY: 4 - 6 days PAIN SCORE: Non-responsive. LOCATION: Bilateral chest FINDINGS: There is persistent alveolar consolidation of the right upper lung field and to a lesser extent the l mikey bases. No pneumothorax is noted. Endotracheal tube, nasogastric tube and left internal jugular ce ntral line are stable. The heart is stable. CONCLUSION: Persistent alveolar consolidation of the right upper lung field and to a lesser extent the lung bases . Lobo Ibarra MD on June 03, 2017 at 10:00 Board Certified Radiologist. This report was verified electronically.
--- NOTE | 2017-06-03 11:07 | HHI.NPPN ---
Subjective History of Present Illness 36 year old with Aortic dissection ARF Additional Remarks Patient remains intubated late entry for 06/02 visit Objective Data Data BP 108/68 -: 06/03/17 0455 06/03/17 0455 Microbiology Physical Exam General Appearance: Well Developed Eyes Eye Exam: Pupils Equal Neck Neck Exam: Neck Supple Pulmonary Resp Exam: Clear Bilaterally Cardiology CV Exam: Regular, Normal Sinus Rhythm Gastrointestinal/Abdomen GI Exam: Soft, Non-Tender Genitourinary Exam: Clear Urine Integumentary Skin Exam: Intact Extremeties Extremities Exam: Moderate Edema, Pitting Edema, Dependent Edema Assessment/Plan Problem List: (1) Acute renal failure ICD Codes: N17.9 - Acute kidney failure, unspecified Plan: He has large dissection of aorta continue to monitor he is passing urine , creatinine he did receive IV contrast repeat CTA Dissection up to Common Iliac arteries seen with true and false lumen perfused Cr 5.4 non oliguric Monitor intake and output Blood pressure was elevated, now on Coreg/clonidine/Labetalol/ Cardizem and prn Hydralazine Patient has good urine out. Creatinine is slightly better. K is low, replaced. Inc LFT ON Lasix 40 mg IV q 8 D/W will delay dialysis till it is needed (2) Dissection of aorta, thoracoabdominal ICD Codes: I71.03 - Dissection of thoracoabdominal aorta Status: Acute Plan: vascular is following Renal arteries remains perfused Roz Flannery MD Jun 03, 2017 11:07
--- NOTE | 2017-06-03 11:09 | HHI.NPPN ---
Subjective History of Present Illness 36 year old with Aortic dissection ARF Additional Remarks Patient remains intubated Objective Data Data 06/03/17 06/04/17 19:00 07:00 Intake Total 360 ml Balance 360 ml IV Total 360 ml Vital Signs Date Time Temp Pulse Resp B/P (MAP) Pulse Ox O2 Delivery O2 Flow Rate FiO2 06/03/17 11:02 70 06/03/17 11:01 98.4 70 16 112/67 (82) 94 127/63 (84) 06/03/17 10:16 97 75 06/03/17 08:15 80 06/03/17 07:45 94 Mechanical Ventilator 80 06/03/17 07:45 98.5 70 16 92/52 (65) 94 110/50 (70) 06/03/17 07:45 65 06/03/17 07:45 94 80 06/03/17 06:22 97 80 06/03/17 04:02 93 85 06/03/17 04:00 70 06/03/17 04:00 98.6 70 16 91/57 (68) 94 110/54 (72) 06/03/17 04:00 94 Mechanical Ventilator 85 06/03/17 04:00 85 06/03/17 03:00 88 85 06/03/17 03:00 85 06/03/17 01:00 92 70 06/03/17 00:00 98.8 71 16 104/58 (73) 95 111/49 (69) 06/03/17 00:00 70 06/03/17 00:00 75 06/03/17 00:00 95 75 06/02/17 22:34 96 75 06/02/17 20:34 92 80 06/02/17 20:00 70 06/02/17 20:00 94 Mechanical Ventilator 80 06/02/17 20:00 98.9 69 16 91/55 (67) 94 127/59 (81) 06/02/17 20:00 80 06/02/17 19:00 88 Mechanical Ventilator 60 06/02/17 16:05 50 06/02/17 16:04 55 06/02/17 16:00 97 50 06/02/17 15:08 98.7 71 16 108/68 (81) 95 124/59 (80) 06/02/17 15:08 71 06/02/17 15:08 97 50 06/02/17 12:09 55 06/02/17 11:57 96 55 -: 06/03/17 0455 06/03/17 0455 Microbiology 06/03/17 Gram Stain, Received Pending 06/03/17 Bronchial Culture, Received Pending Physical Exam General Appearance: Well Developed Eyes Eye Exam: Pupils Equal Neck Neck Exam: Neck Supple Pulmonary Resp Exam: Clear Bilaterally Cardiology CV Exam: Regular, Normal Sinus Rhythm Gastrointestinal/Abdomen GI Exam: Soft, Non-Tender Genitourinary Exam: Clear Urine Integumentary Skin Exam: Intact Extremeties Extremities Exam: Moderate Edema, Pitting Edema, Dependent Edema Assessment/Plan Problem List: (1) Acute renal failure ICD Codes: N17.9 - Acute kidney failure, unspecified Plan: He has large dissection of aorta continue to monitor he is passing urine , creatinine he did receive IV contrast repeat CTA Dissection up to Common Iliac arteries seen with true and false lumen perfused Cr 5.6 non oliguric Monitor intake and output Blood pressure was elevated, now on Coreg/clonidine/Labetalol/ Cardizem and prn Hydralazine Patient has good urine out. Creatinine is slightly better. K is low, replaced. Inc LFT ON Lasix 40 mg IV q 8 D/W Dr. Elizabeth no urgency to start dialysis but if uremia got worse then consider will delay dialysis till it is needed (2) Dissection of aorta, thoracoabdominal ICD Codes: I71.03 - Dissection of thoracoabdominal aorta Status: Acute Plan: vascular is following Renal arteries remains perfused Roz Flannery MD Jun 03, 2017 11:09
--- NOTE | 2017-06-03 13:14 | HHI.GIFU ---
Subjective Remarks intubated on vent. + multiple large liquid stools. (Addie Springer) Objective Vitals I&O Vital Signs Date Time Temp Pulse Resp B/P (MAP) Pulse Ox O2 Delivery O2 Flow Rate FiO2 06/03/17 12:05 65 06/03/17 11:03 94 65 06/03/17 11:02 70 06/03/17 11:01 98.4 70 16 112/67 (82) 94 127/63 (84) 06/03/17 10:16 97 75 06/03/17 08:30 97 100 06/03/17 08:15 80 06/03/17 07:45 94 Mechanical Ventilator 80 06/03/17 07:45 98.5 70 16 92/52 (65) 94 110/50 (70) 06/03/17 07:45 65 06/03/17 07:45 94 80 06/03/17 06:22 97 80 06/03/17 04:02 93 85 06/03/17 04:00 70 06/03/17 04:00 98.6 70 16 91/57 (68) 94 110/54 (72) 06/03/17 04:00 94 Mechanical Ventilator 85 06/03/17 04:00 85 06/03/17 03:00 88 85 06/03/17 03:00 85 06/03/17 01:00 92 70 06/03/17 00:00 98.8 71 16 104/58 (73) 95 111/49 (69) 06/03/17 00:00 70 06/03/17 00:00 75 06/03/17 00:00 95 75 06/02/17 22:34 96 75 06/02/17 20:34 92 80 06/02/17 20:00 70 06/02/17 20:00 94 Mechanical Ventilator 80 06/02/17 20:00 98.9 69 16 91/55 (67) 94 127/59 (81) 06/02/17 20:00 80 06/02/17 19:00 88 Mechanical Ventilator 60 06/02/17 16:05 50 06/02/17 16:04 55 06/02/17 16:00 97 50 06/02/17 15:08 98.7 71 16 108/68 (81) 95 124/59 (80) 3/15/18 15:08 71 06/02/17 15:08 97 50 I/O 06/02/17 06/02/17 06/02/17 06/03/17 06/03/17 06/03/17 07:00 15:00 23:00 07:00 15:00 23:00 Intake Total 920 ml 1130 ml 920 ml 1170 ml 710 ml Output Total 2340 ml 9140 ml 2560 ml Balance -1420 ml 1130 ml -8220 ml -1390 ml 710 ml Intake Oral 0 ml 0 ml IV Total 920 ml 1130 ml 920 ml 1170 ml 710 ml Tube Feeding 0 ml Output Urine Total 1740 ml 3790 ml 2160 ml Stool Total 5000 ml Gastric Drainage Total 600 ml 350 ml 400 ml # Bowel Movements 0 3 0 Laboratory Laboratory Tests Test 06/02/17 18:30 06/03/17 04:55 Potassium Level 2.9 3.2 White Blood Count 16.9 Red Blood Count 2.93 Hemoglobin 8.4 Hematocrit 23.4 Mean Corpuscular Volume 79.9 Mean Corpuscular Hemoglobin 28.6 Mean Corpuscular Hemoglobin Concent 35.8 Red Cell Distribution Width 15.7 Platelet Count 280 Mean Platelet Volume 9.3 Neutrophils (%) (Auto) 79.8 Lymphocytes (%) (Auto) 10.4 Monocytes (%) (Auto) 5.0 Eosinophils (%) (Auto) 4.3 Basophils (%) (Auto) 0.5 Neutrophils # (Auto) 13.5 Lymphocytes # (Auto) 1.8 Monocytes # (Auto) 0.8 Eosinophils # (Auto) 0.7 Basophils # (Auto) 0.1 CBC Comment AUTO DIFF Differential Total Cells Counted 100 Neutrophils % (Manual) 71 Band Neutrophils % 11 Lymphocytes % 5 Monocytes % 6 Eosinophils % 5 Neutrophils # (Manual) 14.2 Metamyelocytes 2 Nucleated Red Blood Cells 5 Differential Comment FINAL DIFF MANUAL Atypical Lymphocytes Platelet Estimate NORMAL Platelet Morphology Comment ENLARGED Red Cell Morphology Comment Blood Urea Nitrogen 65 Creatinine 5.64 Random Glucose 90 Total Protein 6.1 Albumin 1.7 Calcium Level 8.0 Alkaline Phosphatase 111 Aspartate Amino Transf (AST/SGOT) 672 Alanine Aminotransferase (ALT/SGPT) 1088 Total Bilirubin 2.4 Sodium Level 145 Chloride Level 109 Carbon Dioxide Level 22.5 Anion Gap 14 Estimat Glomerular Filtration Rate 14 Total Creatine Kinase 2219 Creatine Kinase MB 3.2 Creatine Kinase MB % 0.1 Random Vancomycin Level 18.3 Date/Time Source Procedure Growth Status 06/01/17 00:02 Blood Peripheral Aerobic Blood Culture - Preliminary NO GROWTH IN 2 DAYS Resulted 06/01/17 00:02 Blood Peripheral Anaerobic Blood Culture - Final QNS - SEE AEROBE REPORT Resulted 06/03/17 09:00 Bronchial Washings Other Gram Stain Pending Received 06/03/17 09:00 Bronchial Washings Other Bronchial Culture Pending Received 05/25/17 12:30 Urine Catheterized Urine Urine Culture - Final NO GROWTH IN 48 HOURS. Complete Imaging Last Impressions Chest X-Ray 06/03/17 0600 Signed Impressions: Service Date/Time: Saturday, June 03, 2017 04:16 - CONCLUSION: 1. Interval complete opacification of the right upper lobe. 2. Stable left basilar consolidation/effusion and stable patchy airspace disease medially in the right lower lung field. 3. Stable position of life support tubes. Rodrigue Miller MD Abdomen X-Ray 06/02/17 0000 Signed Impressions: Service Date/Time: May 10:18 - CONCLUSION: NG tip in stomach. Left basilar airspace disease. Elevated right hemidiaphragm. Bowel gas pattern demonstrates mild ileus Tc Varghese MD Liver Ultrasound 05/31/17 1434 Signed Impressions: Service Date/Time: Wednesday, May 31, 2017 14:40 - CONCLUSION: 1. Interval apparent hepatomegaly with diffusely increased hepatic echogenicity. Given the acuity of findings, findings may reflect acute hepatitis or congestive hepatopathy. 2. Persistently contracted gallbladder which accentuates the gallbladder wall with persistent gallbladder wall thickening and trace pericholecystic fluid. These findings are commonly seen in the setting of liver disease although differential considerations include acalculous cholecystitis. HIDA scan may be performed for better evaluation as clinically appropriate. 3. Andrew Kraft MD Lung Scan-V Nuclear Medicine 05/23/17 0000 Signed Impressions: Service Date/Time: Tuesday, May 23, 2017 10:22 - CONCLUSION: Low probability of pulmonary embolism. Buddy Harrison MD FACR Lower Extremity Ultrasound 05/23/17 0000 Signed Impressions: Service Date/Time: Tuesday, May 23, 2017 08:02 - CONCLUSION: Negative for deep venous thrombosis. Buddy Harrison MD FACR Head CT 05/23/17 0000 Signed Impressions: Service Date/Time: Tuesday, May 23, 2017 03:56 - CONCLUSION: 1. Examination quality is degraded by motion artifact. 2. No definite acute finding is identified. There is a 3 mm punctate area of high density in the left frontal periventricular white matter. This could represent small focus of acute blood products. Suggest attention to this on followup imaging. Wiliam Buck MD Brain MRI 05/23/17 0000 Signed Impressions: Service Date/Time: Tuesday, May 23, 2017 15:59 - CONCLUSION: 1. 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 2. No hemorrhage observe. 3. Pansinus disease. Rudy Cervantes Jr., MD Aorta CTA 05/23/17 0000 Signed Impressions: Service Date/Time: Tuesday, May 23, 2017 03:58 - CONCLUSION: 1. 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 The dissection extends to the abdominal aorta and terminates in the common iliac arteries bilaterally. The abdominal vessels arise from both the true and false lumens and demonstrate good opacification. Suggest correlating with the patient's prior imaging study which documents the dissection. 2. 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 3. There is stranding of the periaortic fat adjacent to the arch aneurysm. 4. There are small bilateral pleural effusions, left larger than right, with bilateral volume loss and/or airspace consolidation bilaterally. Wiliam Buck MD Abdomen Ultrasound 05/23/17 0000 Signed Impressions: Service Date/Time: Tuesday, May 23, 2017 17:22 - CONCLUSION: 1. Gall bladder wall thickening and possible pericholecystic fluid without evidence of gallstones. May consider perform hepatic biliary tract scan to evaluate for acalculous cholecystitis. 2. No focal abnormality seen within the liver. Rudy Pollock MD Physical Exam HEENT: Normocephalic; atraumatic; no jaundice. CHEST: coarse CARDIAC: RRR ABDOMEN: Distended, soft, BS faint. NGT to LIWS EXTREMITIES: No clubbing, cyanosis, + edema. SKIN: Normal; no rash; no jaundice. 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 LFTs were WNL on day of admission and have been trending up with sudden large increase today. US 05/23 showed GB wall t hickening and poss pericholecystic fluid, no stones. repeat US is pending. hepatitis panel neg. - bilat embolic CVA, HTN emergency, aortic dissection, PEA 05/23/17 2/2 CORI, per CCM 06/01/17 worsening creatinine. now with mild ileus per KUB. NGT to LIWS. US liver showed hepatomegaly, acute hepatitis vs congestion, liver dz vs cholecystitis. NH elevated 158 -- ?lactulose enemas?. hep panel negative, rest of liver w/u pending would give reglan for ileus but creatinine worsening. (06/02) --> Pt remains sedated and mechanically ventilated. LFTs trending down- ? etiology shocked liver vs medication vs congestive hepatomegaly Hepatitis panel negative. LEN and ASMA negative. AMA pending. Alpha-1 antitrypsin-487 Ceruloplasmin pending. AFP-2. Ammonia-42 [id number]. Liver US --> Interval apparent hepatomegaly with diffusely increased hepatic echogenicity. May reflect acute hepatitis vs hepatopathy. KUB (06/02) --> Bowel gas pattern demonstrates mild ileus. Pt still with NGT to LIWS. 06/03/17 mult liquid stools. liver w/u so far unremarkable. elevated triglycerides ?shock liver PLAN - LFTs trending down - Lactulose through OG - await rest of liver w/u - NGT to LIWS - Monitor stool count - Further recommendations based on clinical course and results of above Pt has been seen and examined by myself and Dr. Martin and this note is written on his behalf (Addie Springer) Physician Comments Agree with above assessment and plan Will follow up with you periodically. (Andressa Martin MD) Addie Springer Jun 03, 2017 13:14 Andressa Martin MD Jun 03, 2017 14:47
[2017-06-03] MEDS ORDERED: VANCOMYCIN INJ 1,500 MG in SODIUM CHLORID 0.9% 500 ML INJ 500 ML IV ONE (14:00)
[2017-06-03] MEDS: methylPREDNISolone SOD SUCC 40 MG/1 ML VIAL IV PUSH SCH ×2 (14:23→21:35)
--- NOTE | 2017-06-03 19:17 | HHI.IDPN ---
Subjective Subjective Remarks Oxygenation improved after BAL FiO2 down to 65% from 100% Off paralytics afebrile Antibiotics uli kiran Allergies: Coded Allergies: No Known Allergies (Unverified , 05/19/17) Objective . Vital Signs Date Time Temp Pulse Resp B/P (MAP) Pulse Ox O2 Delivery O2 Flow Rate FiO2 06/03/17 16:07 65 06/03/17 15:42 93 65 06/03/17 15:07 98.3 69 16 122/69 (86) 93 138/67 (90) 06/03/17 15:06 69 06/03/17 15:06 93 65 06/03/17 13:50 93 65 06/03/17 12:05 65 06/03/17 11:03 94 65 06/03/17 11:02 70 06/03/17 11:01 98.4 70 16 112/67 (82) 94 127/63 (84) 06/03/17 10:16 97 75 06/03/17 08:30 97 100 06/03/17 08:15 80 06/03/17 07:45 94 Mechanical Ventilator 80 06/03/17 07:45 98.5 70 16 92/52 (65) 94 110/50 (70) 06/03/17 07:45 65 06/03/17 07:45 94 80 06/03/17 06:22 97 80 06/03/17 04:02 93 85 06/03/17 04:00 70 06/03/17 04:00 98.6 70 16 91/57 (68) 94 110/54 (72) 06/03/17 04:00 94 Mechanical Ventilator 85 06/03/17 04:00 85 06/03/17 03:00 88 85 06/03/17 03:00 85 06/03/17 01:00 92 70 06/03/17 00:00 98.8 71 16 104/58 (73) 95 111/49 (69) 06/03/17 00:00 70 06/03/17 00:00 75 06/03/17 00:00 95 75 06/02/17 22:34 96 75 06/02/17 20:34 92 80 06/02/17 20:00 70 06/02/17 20:00 94 Mechanical Ventilator 80 06/02/17 20:00 98.9 69 16 91/55 (67) 94 127/59 (81) 06/02/17 20:00 80 06/03/17 06/03/17 06/04/17 15:00 23:00 07:00 Intake Total 860 ml 515 ml Output Total 2365 ml Balance 860 ml -1850 ml IV Total 860 ml 515 ml Output Urine Total 2190 ml Gastric Drainage Total 175 ml # Bowel Movements 0 . Laboratory Tests Test 06/02/17 04:40 06/03/17 04:55 White Blood Count 15.5 TH/MM3 16.9 TH/MM3 Red Blood Count 2.99 MIL/MM3 2.93 MIL/MM3 Hemoglobin 8.2 GM/DL 8.4 GM/DL Hematocrit 24.3 % 23.4 % Mean Corpuscular Volume 81.3 FL 79.9 FL Mean Corpuscular Hemoglobin 27.4 PG 28.6 PG Mean Corpuscular Hemoglobin Concent 33.7 % 35.8 % Red Cell Distribution Width 15.8 % 15.7 % Platelet Count 284 TH/MM3 280 TH/MM3 Mean Platelet Volume 8.9 FL 9.3 FL Neutrophils (%) (Auto) 75.4 % 79.8 % Lymphocytes (%) (Auto) 14.1 % 10.4 % Monocytes (%) (Auto) 4.6 % 5.0 % Eosinophils (%) (Auto) 4.9 % 4.3 % Basophils (%) (Auto) 1.0 % 0.5 % Neutrophils # (Auto) 11.7 TH/MM3 13.5 TH/MM3 Lymphocytes # (Auto) 2.2 TH/MM3 1.8 TH/MM3 Monocytes # (Auto) 0.7 TH/MM3 0.8 TH/MM3 Eosinophils # (Auto) 0.8 TH/MM3 0.7 TH/MM3 Basophils # (Auto) 0.2 TH/MM3 0.1 TH/MM3 CBC Comment AUTO DIFF AUTO DIFF Differential Total Cells Counted 100 100 Neutrophils % (Manual) 63 % 71 % Band Neutrophils % 21 % 11 % Lymphocytes % 6 % 5 % Eosinophils % 9 % 5 % Neutrophils # (Manual) 13.2 TH/MM3 14.2 TH/MM3 Metamyelocytes 1 % 2 % Nucleated Red Blood Cells 8 /100 WBC 5 /100 WBC Differential Comment FINAL DIFF MANUAL FINAL DIFF MANUAL Platelet Estimate NORMAL NORMAL Platelet Morphology Comment ENLARGED ENLARGED Red Cell Morphology Comment Hematology Comments Monocytes % 6 % Atypical Lymphocytes % Laboratory Tests Test 06/02/17 04:40 06/02/17 09:35 06/02/17 18:30 06/03/17 04:55 Blood Urea Nitrogen 65 MG/DL 65 MG/DL Creatinine 5.40 MG/DL 5.64 MG/DL Random Glucose 123 MG/DL 90 MG/DL Total Protein 7.2 GM/DL 6.1 GM/DL Albumin 1.8 GM/DL 1.7 GM/DL Calcium Level 7.0 MG/DL 8.0 MG/DL Phosphorus Level 5.8 MG/DL Magnesium Level 2.2 MG/DL Alkaline Phosphatase 115 U/L 111 U/L Aspartate Amino Transf (AST/SGOT) 1116 U/L 672 U/L Alanine Aminotransferase (ALT/SGPT) 1499 U/L 1088 U/L Total Bilirubin 2.5 MG/DL 2.4 MG/DL Sodium Level 142 MEQ/L 145 MEQ/L Potassium Level 3.2 MEQ/L 2.9 MEQ/L 3.2 MEQ/L Chloride Level 105 MEQ/L 109 MEQ/L Carbon Dioxide Level 22.9 MEQ/L 22.5 MEQ/L Anion Gap 14 MEQ/L 14 MEQ/L Estimat Glomerular Filtration Rate 15 ML/MIN 14 ML/MIN Lactic Acid Level 0.2 mmol/L Protein Corrected Calcium 7.0 MG/DL Ammonia 42 MCMOL/L Total Creatine Kinase 3695 U/L 3451 U/L 2219 U/L Creatine Kinase MB 5.2 NG/ML 6.5 NG/ML 3.2 NG/ML Creatine Kinase MB % 0.1 % 0.2 % 0.1 % Lipase 340 U/L Triglycerides Level 1632 MG/DL Test 06/03/17 18:00 Microbiology Date/Time Source Procedure Growth Status 06/01/17 00:02 Blood Peripheral Aerobic Blood Culture - Preliminary NO GROWTH IN 2 DAYS Resulted 06/01/17 00:02 Blood Peripheral Anaerobic Blood Culture - Final QNS - SEE AEROBE REPORT Resulted 05/31/17 23:01 Blood Peripheral Aerobic Blood Culture - Preliminary NO GROWTH IN 3 DAYS Resulted 05/31/17 23:01 Blood Peripheral Anaerobic Blood Culture - Preliminary NO GROWTH IN 3 DAYS Resulted 06/03/17 09:00 Bronchial Washings Other Gram Stain - Final Resulted 06/03/17 09:00 Bronchial Washings Other Bronchial Culture Pending Resulted 06/01/17 05:00 Sputum Endotracheal Gram Stain - Final Complete 06/01/17 05:00 Sputum Endotracheal Sputum Culture - Final MODERATE GROWTH NORMAL RESPIRATORY FARIDA Complete Imaging Last Impressions Chest X-Ray 06/03/17 0600 Signed Impressions: Service Date/Time: Saturday, June 03, 2017 04:16 - CONCLUSION: 1. Interval complete opacification of the right upper lobe. 2. Stable left basilar consolidation/effusion and stable patchy airspace disease medially in the right lower lung field. 3. Stable position of life support tubes. Rodrigue Miller MD Abdomen X-Ray 06/02/17 0000 Signed Impressions: Service Date/Time: May 10:18 - CONCLUSION: NG tip in stomach. Left basilar airspace disease. Elevated right hemidiaphragm. Bowel gas pattern demonstrates mild ileus Tc Varghese MD Liver Ultrasound 05/31/17 1434 Signed Impressions: Service Date/Time: Wednesday, May 31, 2017 14:40 - CONCLUSION: 1. Interval apparent hepatomegaly with diffusely increased hepatic echogenicity. Given the acuity of findings, findings may reflect acute hepatitis or congestive hepatopathy. 2. Persistently contracted gallbladder which accentuates the gallbladder wall with persistent gallbladder wall thickening and trace pericholecystic fluid. These findings are commonly seen in the setting of liver disease although differential considerations include acalculous cholecystitis. HIDA scan may be performed for better evaluation as clinically appropriate. 3. Andrew Kraft MD Lung Scan-V Nuclear Medicine 05/23/17 0000 Signed Impressions: Service Date/Time: Tuesday, May 23, 2017 10:22 - CONCLUSION: Low probability of pulmonary embolism. Buddy Harrison MD FACR Lower Extremity Ultrasound 05/23/17 0000 Signed Impressions: Service Date/Time: Tuesday, May 23, 2017 08:02 - CONCLUSION: Negative for deep venous thrombosis. Buddy Harrison MD FACR Head CT 05/23/17 0000 Signed Impressions: Service Date/Time: Tuesday, May 23, 2017 03:56 - CONCLUSION: 1. Examination quality is degraded by motion artifact. 2. No definite acute finding is identified. There is a 3 mm punctate area of high density in the left frontal periventricular white matter. This could represent small focus of acute blood products. Suggest attention to this on followup imaging. Wiliam Buck MD Brain MRI 05/23/17 0000 Signed Impressions: Service Date/Time: Tuesday, May 23, 2017 15:59 - CONCLUSION: 1. 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 2. No hemorrhage observe. 3. Pansinus disease. Rudy Cervantes Jr., MD Aorta CTA 05/23/17 0000 Signed Impressions: Service Date/Time: Tuesday, May 23, 2017 03:58 - CONCLUSION: 1. 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 The dissection extends to the abdominal aorta and terminates in the common iliac arteries bilaterally. The abdominal vessels arise from both the true and false lumens and demonstrate good opacification. Suggest correlating with the patient's prior imaging study which documents the dissection. 2. 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 3. There is stranding of the periaortic fat adjacent to the arch aneurysm. 4. There are small bilateral pleural effusions, left larger than right, with bilateral volume loss and/or airspace consolidation bilaterally. Wiliam Buck MD Abdomen Ultrasound 05/23/17 0000 Signed Impressions: Service Date/Time: Tuesday, May 23, 2017 17:22 - CONCLUSION: 1. Gall bladder wall thickening and possible pericholecystic fluid without evidence of gallstones. May consider perform hepatic biliary tract scan to evaluate for acalculous cholecystitis. 2. No focal abnormality seen within the liver. Rudy Pollock MD Physical Exam CONSTITUTIONAL/GENERAL: This is an adequately nourished patient, sedated int'd on vent TUBES/LINES/DRAINS: SKIN: No jaundice, rashes, or lesions. Skin temperature appropriate. Not diaphoretic. HEAD: Atraumatic. Normocephalic. EYES: Pupils equal and round and reactive. Extraocular motions intact. No scleral icterus. No injection or drainage. Fundi not examined. ENT: Hearing not tested. Nose without bleeding or purulent drainage. Throat without visible erythema, exudates, masses, or lesions. NECK: Trachea midline. Supple, nontender. CARDIOVASCULAR: Regular rate and rhythm without murmurs, gallops, or rubs. No JVD. Peripheral pulses symmetric. RESPIRATORY/CHEST: Symmetric, unlabored respirations. Scattered to auscultation. Breath sounds equal bilaterally. No wheezes, rales, or rhonchi. GASTROINTESTINAL: Abdomen soft, non-tender, nondistended. No hepato-splenomegaly , or palpable masses. No guarding. Bowel sounds present. GENITOURINARY: Without palpable bladder distension. Ledesma catheter in place with very light yellow MUSCULOSKELETAL: Extremities without clubbing, cyanosis, or edema. No joint tenderness or effusion noted. No calf tenderness. No mottling or clubbing. LYMPHATICS: No palpable cervical or supraclavicular adenopathy. NEUROLOGICAL: sedated heavily, unrespomsive PSYCHIATRIC: unable to assess Assessment & Plan Remarks Type B AAA dissection PNA Acute VDRF - failure to wean Non oliguric ARF Fever Leukocytosis, bandemia Abx associated ileus , diarrhea - r/o c.diff cont kenyetta mcnally for now r/o C.diff Discussed Condition With Nalini Bliss MD Jun 03, 2017 19:17
[2017-06-03] MEDS: POTASSIUM CHLORIDE 10 MEQ CONTROLLED RELEASE TAB PO SCH (20:53)
[2017-06-03] MEDS: LABETALOL HCL 100 MG/20 ML VIAL IV PUSH PRN (23:10)
[2017-06-03 23:51] LABS: CERULOPLASMIN 59 mg/dL (18-36)
[2017-06-04] VITALS (12 sets, daily range): BP systolic 110–146; BP diastolic 55–77; PULSE 57–65; RESP 16–18; TEMP 97.6–98.6; O2SAT 91–97
[2017-06-04] MEDS: POTASSIUM CHLOR 20 MEQ PREMIX 100 ML IV SCH ×3 (00:15→04:00)
[2017-06-04] MEDS: FUROSEMIDE 40 MG/4 ML VIAL IV PUSH SCH ×3 (00:16→18:04)
[2017-06-04] MEDS: POTASSIUM CHLORIDE 10 MEQ CONTROLLED RELEASE TAB PO SCH ×2 (00:23→04:15)
[2017-06-04] MEDS: hydrALAZINE HCL 20 MG/ML VIAL IV PUSH PRN (00:46)
[2017-06-04] MEDS: RESP: ALBUTEROL 2.5 MG/IPRATROPIUM 0.5 MG NEB (SCH) NEB ×5 (03:34→21:01)
[2017-06-04] MEDS: RESP: ACETYLCYSTEINE 10% 30 ML NEB NEB SCH ×5 (03:35→21:01)
[2017-06-04] MEDS: CHLORHEXIDINE GLUCONATE 2 % 1 PACK (2 CLOTHS) TOP SCH (04:00)
[2017-06-04 04:42] LABS: AUTOMATED NEUTROPHIL # 17.6 TH/MM3 (1.8-7.7); BASOPHIL # 0.1 TH/MM3 (0-0.2); BASOPHIL % 0.5 % (0.0-2.0); EOSINOPHIL # 0.1 TH/MM3 (0-0.4); EOSINOPHIL % 0.3 % (0.0-4.0); HEMATOCRIT 25.9 % (39.0-51.0); HEMOGLOBIN 8.9 GM/DL (13.0-17.0); LYMPH % 7.7 % (9.0-44.0); LYMPHOCYTE # 1.5 TH/MM3 (1.0-4.8); MEAN CELL VOLUME 78.6 FL (80.0-100.0); MEAN CORPUSCULAR HGB CONC 34.3 % (32.0-36.0); MONO % 3.9 % (0.0-8.0); MONOCYTE # 0.8 TH/MM3 (0-0.9); NEUT % 87.6 % (16.0-70.0); PLATELET COUNT 330 TH/MM3 (150-450); RED BLOOD COUNT 3.29 MIL/MM3 (4.50-5.90); RED CELL DISTRIBUTION WIDTH 15.9 % (11.6-17.2); WHITE BLOOD COUNT 20.1 TH/MM3 (4.0-11.0)
[2017-06-04 05:09] LABS: ALT (GPT) 945 U/L (12-78)
[2017-06-04 05:21] LABS: ALKALINE PHOSPHATASE 113 U/L (45-117); TOTAL BILIRUBIN ADULT 1.9 MG/DL (0.2-1.0); TOTAL PROTEIN 6.7 GM/DL (6.4-8.2)
[2017-06-04 05:27] LABS: ALBUMIN 1.7 GM/DL (3.4-5.0); AST (GOT) 454 U/L (15-37); BICARBONATE 23.9 MEQ/L (21.0-32.0); BLOOD UREA NITROGEN 75 MG/DL (7-18); CALCIUM 8.4 MG/DL (8.5-10.1); CHLORIDE 108 MEQ/L (98-107); CREATININE 5.77 MG/DL (0.60-1.30); GLOMERULAR FILTRATION RATE 14 ML/MIN (>89); GLUCOSE,RANDOM 139 MG/DL (74-106); SODIUM (NA) 145 MEQ/L (136-145)
[2017-06-04 05:37] LABS: BANDS 5 % (0-6); CORRECTED NUCLEATED RBC 1 /100 WBC (0-0); LYMPHOCYTES 4 % (9-44); MONOCYTES 3 % (0-8); MYELOCYTES 2 % (0-0); NEUTROPHIL # MANUAL DIFF 18.7 TH/MM3 (1.8-7.7); NUCLEATED RED BLOOD CELL 1 (0-0); POLYS (SEG NEUTROPHILS) 86 % (16-70)
[2017-06-04] MEDS: cloNIDine HCL 0.3 MG TAB PO SCH (06:00)
[2017-06-04] MEDS: INSULIN NovoLIN REGULAR SUPPLEMENTAL SCALE SQ SCH ×4 (06:00→18:00)
[2017-06-04] MEDS: DILTIAZEM HCL 90 MG TAB PO SCH ×3 (06:00→12:00)
[2017-06-04] MEDS: ARTIFICIAL TEARS OPTH SOLN 15 ML BTL EACH EYE SCH ×3 (06:09→21:24)
[2017-06-04] MEDS: PIPERACIL-TAZO 2.25 GM PREMIX 50 ML IV SCH ×2 (06:09→12:00)
[2017-06-04] MEDS: methylPREDNISolone SOD SUCC 40 MG/1 ML VIAL IV PUSH SCH ×3 (06:31→21:23)
[2017-06-04] MEDS: LACTULOSE SYRUP 20 GM/30 ML CUP OG-TUBE SCH ×3 (06:31→18:00)
--- NOTE | 2017-06-04 08:01 | RADRPT ---
EXAM DATE/TIME: 06/04/2017 07:42 [facility] COMPARISON: CHEST SINGLE AP, June 03, 2017, 9:00. INDICATIONS : Shortness of breath. MEDICAL HISTORY : Hypertension. Aortic dissection. SURGICAL HISTORY : None. ENCOUNTER: Subsequent ACUITY: 1 week PAIN SCORE: Non-responsive. LOCATION: Bilateral chest FINDINGS: Single view of the chest demonstrates an endotracheal tube with the tip approximately 1 cm superior t o the level of the clavicles. The lungs are hypoinflated and demonstrate patchy areas of consolidatio n within the right hemithorax and minimal hazy opacity overlying the left hemithorax may represent at electasis. The heart size appears normal. Osseous structures are intact. CONCLUSION: Given the degree of hypoinflation the overall lung exam remains stable. The endotracheal tube is posi tioned 1 cm above the level of the clavicles. Lori Villasenor MD on June 04, 2017 at 7:56 Board Certified Radiologist. This report was verified electronically.
[2017-06-04] MEDS: POLYETHYLENE GLYCOL 17 GM PKG NG SCH ×2 (09:00→21:23)
[2017-06-04] MEDS: DOCUSATE SODIUM 50 MG/SENNA 8.6 MG TAB PO SCH ×2 (09:00→21:23)
[2017-06-04] MEDS: HEPARIN SODIUM - SQ 10,000 UNITS/ML VIAL SQ SCH ×2 (09:19→21:23)
[2017-06-04] MEDS: FAMOTIDINE 20 MG TAB NG SCH (09:19)
[2017-06-04] MEDS: ASPIRIN 81 MG CHEW TAB CHEW SCH (09:20)
[2017-06-04] MEDS: CARVEDILOL 12.5 MG TAB PO SCH ×2 (09:21→21:22)
--- NOTE | 2017-06-04 10:22 | HHI.GIFU ---
Subjective Remarks Continues in the ICU sedated on ventilator management Low-dose sedation, some during the early a.m. hours but still unresponsive Tolerate Nepro feedings at 35 cc / hr Afebrile (Johanne Anguiano) Objective Vitals I&O Vital Signs Date Time Temp Pulse Resp B/P (MAP) Pulse Ox O2 Delivery O2 Flow Rate FiO2 06/04/17 08:16 91 65 06/04/17 08:14 Mechanical Ventilator 65 06/04/17 08:14 97.8 59 18 113/57 (75) 93 113/56 (75) 06/04/17 08:14 65 06/04/17 04:00 65 06/04/17 03:35 92 65 06/04/17 03:00 Mechanical Ventilator 65 06/04/17 03:00 64 06/04/17 03:00 98.4 65 16 112/57 (75) 95 127/57 (80) 06/04/17 00:00 65 06/03/17 23:46 93 65 06/03/17 23:00 94 Mechanical Ventilator 65 06/03/17 23:00 98.7 64 16 104/72 (83) 95 06/03/17 23:00 70 06/03/17 20:00 65 06/03/17 19:57 93 65 06/03/17 19:00 94 Mechanical Ventilator 65 06/03/17 19:00 98.5 63 16 126/67 (86) 94 145/71 (95) 06/03/17 19:00 65 06/03/17 16:07 65 06/03/17 15:42 93 65 06/03/17 15:07 98.3 69 16 122/69 (86) 93 138/67 (90) 06/03/17 15:06 69 06/03/17 15:06 93 65 06/03/17 13:50 93 65 06/03/17 12:05 65 06/03/17 11:03 94 65 06/03/17 11:02 70 06/03/17 11:01 98.4 70 16 112/67 (82) 94 127/63 (84) I/O 06/03/17 06/03/17 06/03/17 06/04/17 06/04/17 06/04/17 07:00 15:00 23:00 07:00 15:00 23:00 Intake Total 1170 ml 860 ml 615 ml 864 ml Output Total 2560 ml 2370.0 ml 2350 ml Balance -1390 ml 860 ml -1755.0 ml -1486 ml Intake Oral 0 ml IV Total 1170 ml 860 ml 615 ml 650 ml Tube Feeding 214 ml Output Urine Total 2160 ml 2190 ml 2350 ml Gastric Drainage Total 400 ml 175 ml Tube Feeding Residual Discard 5.0 ml # Bowel Movements 0 0 1 Laboratory Laboratory Tests Test 06/03/17 18:00 06/04/17 04:05 06/04/17 08:05 Potassium Level 3.4 3.4 White Blood Count 20.1 Red Blood Count 3.29 Hemoglobin 8.9 Hematocrit 25.9 Mean Corpuscular Volume 78.6 Mean Corpuscular Hemoglobin 27.0 Mean Corpuscular Hemoglobin Concent 34.3 Red Cell Distribution Width 15.9 Platelet Count 330 Mean Platelet Volume 9.0 Neutrophils (%) (Auto) 87.6 Lymphocytes (%) (Auto) 7.7 Monocytes (%) (Auto) 3.9 Eosinophils (%) (Auto) 0.3 Basophils (%) (Auto) 0.5 Neutrophils # (Auto) 17.6 Lymphocytes # (Auto) 1.5 Monocytes # (Auto) 0.8 Eosinophils # (Auto) 0.1 Basophils # (Auto) 0.1 CBC Comment AUTO DIFF Differential Total Cells Counted 100 Neutrophils % (Manual) 86 Band Neutrophils % 5 Lymphocytes % 4 Monocytes % 3 Neutrophils # (Manual) 18.7 Myelocytes 2 Nucleated Red Blood Cells 1 Differential Comment FINAL DIFF MANUAL Platelet Estimate NORMAL Platelet Morphology Comment NORMAL Basophilic Stippling FAINT Blood Urea Nitrogen 75 Creatinine 5.77 Random Glucose 139 Total Protein 6.7 Albumin 1.7 Calcium Level 8.4 Alkaline Phosphatase 113 Aspartate Amino Transf (AST/SGOT) 454 Alanine Aminotransferase (ALT/SGPT) 945 Total Bilirubin 1.9 Sodium Level 145 Chloride Level 108 Carbon Dioxide Level 23.9 Anion Gap 13 Estimat Glomerular Filtration Rate 14 Total Creatine Kinase 1030 Creatine Kinase MB 1.6 Creatine Kinase MB % 0.2 Blood Gas Puncture Site ART LINE Blood Gas Patient Temperature 98.6 Blood Gas HCO3 23 Blood Gas Base Excess -1.2 Blood Gas Oxygen Saturation 93 Arterial Blood pH 7.41 Arterial Blood Partial Pressure CO2 37 Arterial Blood Partial Pressure O2 83 Arterial Blood Oxygen Content 11.9 Arterial Blood Carboxyhemoglobin 0.8 Arterial Blood Methemoglobin 1.5 Blood Gas Hemoglobin 9.0 Oxygen Delivery Device VENTILATOR Blood Gas Ventilator Setting PCAC16/IP20/1.9/+15 Blood Gas Inspired Oxygen 65 Date/Time Source Procedure Growth Status 06/01/17 00:02 Blood Peripheral Aerobic Blood Culture - Preliminary NO GROWTH IN 2 DAYS Resulted 06/01/17 00:02 Blood Peripheral Anaerobic Blood Culture - Final QNS - SEE AEROBE REPORT Resulted 06/03/17 09:00 Bronchial Washings Other Gram Stain - Final Resulted 06/03/17 09:00 Bronchial Washings Other Bronchial Culture Pending Resulted 05/25/17 12:30 Urine Catheterized Urine Urine Culture - Final NO GROWTH IN 48 HOURS. Complete Imaging Last Impressions Chest X-Ray 06/04/17 0600 Signed Impressions: Service Date/Time: Sunday, June 04, 2017 07:42 - CONCLUSION: Given the degree of hypoinflation the overall lung exam remains stable. The endotracheal tube is positioned 1 cm above the level of the clavicles. Lori Villasenor MD Abdomen X-Ray 06/02/17 0000 Signed Impressions: Service Date/Time: May 10:18 - CONCLUSION: NG tip in stomach. Left basilar airspace disease. Elevated right hemidiaphragm. Bowel gas pattern demonstrates mild ileus Tc Varghese MD Liver Ultrasound 05/31/17 1434 Signed Impressions: Service Date/Time: Wednesday, May 31, 2017 14:40 - CONCLUSION: 1. Interval apparent hepatomegaly with diffusely increased hepatic echogenicity. Given the acuity of findings, findings may reflect acute hepatitis or congestive hepatopathy. 2. Persistently contracted gallbladder which accentuates the gallbladder wall with persistent gallbladder wall thickening and trace pericholecystic fluid. These findings are commonly seen in the setting of liver disease although differential considerations include acalculous cholecystitis. HIDA scan may be performed for better evaluation as clinically appropriate. 3. Andrew Kraft MD Lung Scan-V Nuclear Medicine 05/23/17 0000 Signed Impressions: Service Date/Time: Tuesday, May 23, 2017 10:22 - CONCLUSION: Low probability of pulmonary embolism. Buddy Harrison MD FACR Lower Extremity Ultrasound 05/23/17 0000 Signed Impressions: Service Date/Time: Tuesday, May 23, 2017 08:02 - CONCLUSION: Negative for deep venous thrombosis. Buddy Harrison MD FACR Head CT 05/23/17 0000 Signed Impressions: Service Date/Time: Tuesday, May 23, 2017 03:56 - CONCLUSION: 1. Examination quality is degraded by motion artifact. 2. No definite acute finding is identified. There is a 3 mm punctate area of high density in the left frontal periventricular white matter. This could represent small focus of acute blood products. Suggest attention to this on followup imaging. Wiliam Buck MD Brain MRI 05/23/17 0000 Signed Impressions: Service Date/Time: Tuesday, May 23, 2017 15:59 - CONCLUSION: 1. 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 2. No hemorrhage observe. 3. Pansinus disease. Rudy Cervantes Jr., MD Aorta CTA 05/23/17 0000 Signed Impressions: Service Date/Time: Tuesday, May 23, 2017 03:58 - CONCLUSION: 1. 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 The dissection extends to the abdominal aorta and terminates in the common iliac arteries bilaterally. The abdominal vessels arise from both the true and false lumens and demonstrate good opacification. Suggest correlating with the patient's prior imaging study which documents the dissection. 2. 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 3. There is stranding of the periaortic fat adjacent to the arch aneurysm. 4. There are small bilateral pleural effusions, left larger than right, with bilateral volume loss and/or airspace consolidation bilaterally. Wiliam Buck MD Abdomen Ultrasound 05/23/17 0000 Signed Impressions: Service Date/Time: Tuesday, May 23, 2017 17:22 - CONCLUSION: 1. Gall bladder wall thickening and possible pericholecystic fluid without evidence of gallstones. May consider perform hepatic biliary tract scan to evaluate for acalculous cholecystitis. 2. No focal abnormality seen within the liver. Rudy Pollock MD Physical Exam HEENT: Normocephalic; atraumatic; no jaundice. CHEST: coarse rhonchi continues with ventilator management CARDIAC: RRR ABDOMEN: Distended, taut, BS soft EXTREMITIES: No clubbing, cyanosis, + edema. Upper and lower extremities SKIN: Normal; no rash; no jaundice., Generalized edema [employer]: Sedated (Johanne Anguiano) Assessment and Plan Plan ASSESSMENT - elevated LFTs - unclear etiology could be shock liver vs gallbladder etiology. LFTs were WNL on day of admission and have been trending up with sudden large increase today. US 05/23 showed GB wall t hickening and poss pericholecystic fluid, no stones. repeat US is pending. hepatitis panel neg. - bilat embolic CVA, HTN emergency, aortic dissection, PEA 05/23/17 2/2 CORI, per CCM 06/01/17 worsening creatinine. now with mild ileus per KUB. NGT to LIWS. US liver showed hepatomegaly, acute hepatitis vs congestion, liver dz vs cholecystitis. NH elevated 158 -- ?lactulose enemas?. hep panel negative, rest of liver w/u pending would give reglan for ileus but creatinine worsening., (06/02) --> Pt remains sedated and mechanically ventilated. LFTs trending down- ? etiology shocked liver vs medication vs congestive hepatomegaly Hepatitis panel negative. LEN and ASMA negative. AMA pending. Alpha-1 antitrypsin-487 Ceruloplasmin pending. AFP-2. Ammonia-[id number]. Liver US --> Interval apparent hepatomegaly with diffusely increased hepatic echogenicity. May reflect acute hepatitis vs hepatopathy. KUB (06/02) --> Bowel gas pattern demonstrates mild ileus. Pt still with NGT to LIWS. 06/03/17 mult liquid stools. liver w/u so far unremarkable. elevated triglycerides ?shock liver 06/05/07, mild soft bowel sounds, tolerating Nepro feedings at 35 cc an hour. Abdomen large, taut, ileus appears to be resolving based on symptoms LEN negative, anti-smooth muscle negative PLAN - Changed Pepcid dose to IV rather than OG for now - Liver workup labs continue to either be pending or documented - Continue to monitor labs - Lactulose through OG - NGT Nepro feedings 35 cc an hour may increase based on patient's tolerance - bowel movements loose - Further recommendations based on clinical course and results of above Pt has been seen and examined by myself and Dr. Martin and this note is written on his behalf (Johanne Anguiano) Physician Comments Agree with above assessment and plan. Likely shocked liver and workup so far negative, will follow up with you. (Andressa Martin MD) Johanne Anguiano Jun 04, 2017 10:21 Andressa Martin MD Jun 04, 2017 22:36
[2017-06-04] MEDS: FAMOTIDINE 20 MG/2 ML VIAL IV PUSH SCH ×2 (10:30→21:24)
--- NOTE | 2017-06-04 10:39 | HHI.CCPN ---
Subjective Remarks/Hospital Course 05/19: Is a 36-year-old male with a history of hypertension who is on vacation from the [place] area who did not take his antihypertensives today because he is on vacation, and was having sexual intercourse when he had sudden onset of severe substernal radiating to the back chest pain earlier today. 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 He was emergently transferred to [facility] for further management. I evaluated the patient on arrival to the ICU by EVAC. Patient denies abdominal pain. Still endorses chest pain although this is improving. Patient denies any other symptoms. CT chest abdomen pelvis was reviewed and reviewed with myself and Dr. Guzman and does demonstrate a type B dissection. 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 Initial laboratory evidence demonstrates a lactate of 1.3, creatinine 1.2, normal LFTs. 05/20: On home C Pap. Urine output 30 cc/h currently. Remains on esmolol and labetalol drips. Remains drowsy though arousable. +4.4 L 05/21: Resting comfortably on nasal cannula. Awake and alert currently. Denies any shortness of breath or chest pain currently. 05/22: AAO x3, resting comfortably. 05/23 Patient went into PEA arrest early this morning now sedated with Diprivan and intubated. Off Esmolol drip. 05/24 Patient is sedated with Diprivan and intubated. On Labetolol drip. MRI brain yesterday showed multiple small infracts, no hemorrhage. 05/25 Patient remains intubated and sedated. T: 100.5 last night. Renal function is worsening with Cr: 3.6 from 3.4 and UOP: 2650ml in 24 hrs. 05/26 No events overnight. Sedated and intubated. Afebrile. Cr: 3.62 , UOP: 1950ml in 24 hrs 05/27 Patient was extubated yesterday placed on BIPAP overnight. Cr: 3.42 today , UOP: 1800 ml in 24 hrs 05/28 Extubated yesterday and per report was compliant with Bipap overnight Remains on esmolol drip 200 mcg/kg/min and SBP in 140s. ZULY, probable ATN non- oliguric however I>>0 with significant intake from MIVF as well as 180 mL/hr from esmolol drip. IVF d/c per nephrology and transitioning off esmolol to minimize fluid. Hugo now per my discussion with Dr. Thornton. He is tachypneic, obtained ABG with hypercapnea on simple mask. Placing On Bipap. at bedside requesting eventual transfer to [place], though she realized he is not stable for that yet. 05/29: Remains on BiPAP since 299 with increasing respiratory rates. Will attempt a more aggressive diuresis. We started on esmolol drip due to persistent tachycardia and unable to reach target blood pressure and heart rate requirements. At high risk for reintubation. 05/30: Remained hypotensive overnight. This a.m. 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 Will require bronchoscopy this afternoon. Continue with aggressive diuresis. Broad antibiotic coverage. Start tube feeding. The systolic blood pressure better controlled while intubated on propofol and fentanyl drips. 05/31: T-max 102.8. Currently 99.6. FiO2 down to 80%. The same noted elevated transaminases AST of 2674. ALT of 1590. Creatinine is increased to 3.07 to 4.36. +2 L past 24 hours. One bowel movement. Noted prior gallbladder wall thickening on previous ultrasound. We will repeat today Subjective 06/01: T-max 102.5. Currently 98.9. Desaturate overnight resolved currently FiO2 of 80%. 4500 cc urine output. Creatinine continues to rise currently 4.9. CPK currently 6165. We will discontinue propofol with hepatomegaly, rhabdomyolysis possibly indicative propofol infusion syndrome. 06/02 Patient remains intubated and sedated. On Fentanyl, Versed and Nimbex. T: 100.0 at midnight. On PC/AC with PEEP:15, FIO2 50% Renal function continue to decline with Cr: 5.40 from 4.91 and UOP: 2895 ml in 24 hrs 06/03 Patient remains intubated and sedated with Versed, Fentanyl drips. Remains on Nimbex and Flolan. Cr: 5.6 from 5.4 with UOP: 3790 ml in 24 hrs. 06/04:Afebrile. Overnight the patient had an episode of hypotension during the and all sedation was briefly discontinued, then resumed for ventilator synchrony. Clonidine dosage decreased. Patient continues on pressure control mode, and Flolan for adequate oxygenation. Creatinine noted to be 5.7 weight urine output 3220cc/24 hrs. Objective Vital Signs Date Time Temp Pulse Resp B/P (MAP) Pulse Ox O2 Delivery O2 Flow Rate FiO2 06/04/17 08:16 91 65 06/04/17 08:14 Mechanical Ventilator 06/04/17 08:14 97.8 59 18 113/57 (75) 113/56 (75) Intake and Output 06/04/17 06/04/17 06/05/17 08:00 16:00 00:00 Intake Total 514 ml Output Total 2350 ml Balance -1836 ml Result Diagram: 06/04/17 0405 06/04/17 0405 Other Results Laboratory Tests Test 06/04/17 08:05 Blood Gas Puncture Site ART LINE Blood Gas Patient Temperature 98.6 Blood Gas HCO3 23 mmol/L (22-26) Blood Gas Base Excess -1.2 mmol/L (-2-2) Blood Gas Oxygen Saturation 93 % (90-100) Arterial Blood pH 7.41 (7.380-7.420) Arterial Blood Partial Pressure CO2 37 mmHg (38-42) Arterial Blood Partial Pressure O2 83 mmHg (61-120) Arterial Blood Oxygen Content 11.9 Vol % (12.0-20.0) Arterial Blood Carboxyhemoglobin 0.8 % (0-4) Arterial Blood Methemoglobin 1.5 % (0-2) Blood Gas Hemoglobin 9.0 G/DL (12.0-16.0) Oxygen Delivery Device VENTILATOR Blood Gas Ventilator Setting PCAC16/IP20/1.9/+15 Blood Gas Inspired Oxygen 65 % Imaging Last Impressions Chest X-Ray 06/04/17 0600 Signed Impressions: Service Date/Time: Sunday, June 04, 2017 07:42 - CONCLUSION: Given the degree of hypoinflation the overall lung exam remains stable. The endotracheal tube is positioned 1 cm above the level of the clavicles. Lori Villasenor MD Abdomen X-Ray 06/02/17 0000 Signed Impressions: Service Date/Time: May 10:18 - CONCLUSION: NG tip in stomach. Left basilar airspace disease. Elevated right hemidiaphragm. Bowel gas pattern demonstrates mild ileus Tc Varghese MD Liver Ultrasound 05/31/17 1434 Signed Impressions: Service Date/Time: Wednesday, May 31, 2017 14:40 - CONCLUSION: 1. Interval apparent hepatomegaly with diffusely increased hepatic echogenicity. Given the acuity of findings, findings may reflect acute hepatitis or congestive hepatopathy. 2. Persistently contracted gallbladder which accentuates the gallbladder wall with persistent gallbladder wall thickening and trace pericholecystic fluid. These findings are commonly seen in the setting of liver disease although differential considerations include acalculous cholecystitis. HIDA scan may be performed for better evaluation as clinically appropriate. 3. Andrew Kraft MD Lung Scan-V Nuclear Medicine 05/23/17 0000 Signed Impressions: Service Date/Time: Tuesday, May 23, 2017 10:22 - CONCLUSION: Low probability of pulmonary embolism. Buddy Harrison MD FACR Lower Extremity Ultrasound 05/23/17 0000 Signed Impressions: Service Date/Time: Tuesday, May 23, 2017 08:02 - CONCLUSION: Negative for deep venous thrombosis. Buddy Harrison MD FACR Head CT 05/23/17 0000 Signed Impressions: Service Date/Time: Tuesday, May 23, 2017 03:56 - CONCLUSION: 1. Examination quality is degraded by motion artifact. 2. No definite acute finding is identified. There is a 3 mm punctate area of high density in the left frontal periventricular white matter. This could represent small focus of acute blood products. Suggest attention to this on followup imaging. Wiliam Buck MD Brain MRI 05/23/17 0000 Signed Impressions: Service Date/Time: Tuesday, May 23, 2017 15:59 - CONCLUSION: 1. 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 2. No hemorrhage observe. 3. Pansinus disease. Rudy Cervantes Jr., MD Aorta CTA 05/23/17 0000 Signed Impressions: Service Date/Time: Tuesday, May 23, 2017 03:58 - CONCLUSION: 1. 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 The dissection extends to the abdominal aorta and terminates in the common iliac arteries bilaterally. The abdominal vessels arise from both the true and false lumens and demonstrate good opacification. Suggest correlating with the patient's prior imaging study which documents the dissection. 2. 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 3. There is stranding of the periaortic fat adjacent to the arch aneurysm. 4. There are small bilateral pleural effusions, left larger than right, with bilateral volume loss and/or airspace consolidation bilaterally. Wiliam Buck MD Abdomen Ultrasound 05/23/17 0000 Signed Impressions: Service Date/Time: Tuesday, May 23, 2017 17:22 - CONCLUSION: 1. Gall bladder wall thickening and possible pericholecystic fluid without evidence of gallstones. May consider perform hepatic biliary tract scan to evaluate for acalculous cholecystitis. 2. No focal abnormality seen within the liver. Rudy Pollock MD Last Impressions Chest X-Ray 06/03/17 0600 Signed Impressions: Service Date/Time: Saturday, June 03, 2017 04:16 - CONCLUSION: 1. Interval complete opacification of the right upper lobe. 2. Stable left basilar consolidation/effusion and stable patchy airspace disease medially in the right lower lung field. 3. Stable position of life support tubes. Rodrigue Miller MD Abdomen X-Ray 06/02/17 0000 Signed Impressions: Service Date/Time: May 10:18 - CONCLUSION: NG tip in stomach. Left basilar airspace disease. Elevated right hemidiaphragm. Bowel gas pattern demonstrates mild ileus Tc Varghese MD Liver Ultrasound 05/31/17 1434 Signed Impressions: Service Date/Time: Wednesday, May 31, 2017 14:40 - CONCLUSION: 1. Interval apparent hepatomegaly with diffusely increased hepatic echogenicity. Given the acuity of findings, findings may reflect acute hepatitis or congestive hepatopathy. 2. Persistently contracted gallbladder which accentuates the gallbladder wall with persistent gallbladder wall thickening and trace pericholecystic fluid. These findings are commonly seen in the setting of liver disease although differential considerations include acalculous cholecystitis. HIDA scan may be performed for better evaluation as clinically appropriate. 3. Andrew Kraft MD Lung Scan-VQ Nuclear Medicine 05/23/17 0000 Signed Impressions: Service Date/Time: Tuesday, May 23, 2017 10:22 - CONCLUSION: Low probability of pulmonary embolism. Buddy Harrison MD FACR Lower Extremity Ultrasound 05/23/17 Signed Impressions: Service Date/Time: Tuesday, May 23, 2017 08:02 - CONCLUSION: Negative for deep venous thrombosis. Buddy Harrison MD FACR Head CT 05/23/17 Signed Impressions: Service Date/Time: Tuesday, May 23, 2017 03:56 - CONCLUSION: 1. Examination quality is degraded by motion artifact. 2. No definite acute finding is identified. There is a 3 mm punctate area of high density in the left frontal periventricular white matter. This could represent small focus of acute blood products. Suggest attention to this on followup imaging. Wiliam Buck MD Brain MRI 05/23/17 Signed Impressions: Service Date/Time: Tuesday, May 23, 2017 15:59 - CONCLUSION: 1. 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 2. No hemorrhage observe. 3. Pansinus disease. Rudy Cervantes Jr., MD Aorta CTA 05/23/17 Signed Impressions: Service Date/Time: Tuesday, May 23, 2017 03:58 - CONCLUSION: 1. 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 The dissection extends to the abdominal aorta and terminates in the common iliac arteries bilaterally. The abdominal vessels arise from both the true and false lumens and demonstrate good opacification. Suggest correlating with the patient's prior imaging study which documents the dissection. 2. 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 3. There is stranding of the periaortic fat adjacent to the arch aneurysm. 4. There are small bilateral pleural effusions, left larger than right, with bilateral volume loss and/or airspace consolidation bilaterally. Wiliam Buck MD Abdomen Ultrasound 05/23/17 Signed Impressions: Service Date/Time: Tuesday, May 23, 2017 17:22 - CONCLUSION: 1. Gall bladder wall thickening and possible pericholecystic fluid without evidence of gallstones. May consider perform hepatic biliary tract scan to evaluate for acalculous cholecystitis. 2. No focal abnormality seen within the liver. Rudy Pollock MD Objective Remarks GENERAL: This is a 36-year-old well-developed well-nourished AA male resting in bed orotracheally intubated, and sedated SKIN: Warm and dry, adequately perfused. HEAD: Normocephalic. EYES: Pupils 3 mm and reactive. No scleral icterus. No injection or drainage. NECK: Supple, trachea midline. No JVD or lymphadenopathy. Left IJ CVL is clean dry and intact CARDIOVASCULAR: Distant. RRR. S1, S2 no S4. Cannot appreciate murmurs, clicks , gallops or rubs RESPIRATORY: Coarse rhonchorous crackles noted throughout all lung [place] anterior-posterior bilaterally. No wheezing GASTROINTESTINAL: Abdomen soft, non-tender, nondistended. Hypoactive bowel sounds are appreciated MUSCULOSKELETAL: No cyanosis. Edema 2+ bilateral upper and lower extremities NEURO: Currently sedated on Versed and fentanyl drips. Positive gag and corneal reflex. Positive cough. 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 On Fentanyl, Versed infusion to maintain ventilator synchrony. Propofol discontinued 06/03. Nimbex discontinued 06/03 Goal of RASS -2 Daily sedation vacation when appropriate Acetaminophen 650 mg by tube every 6 hours as needed fever discontinued due to elevated transaminases Evaluated by neurology/Dr. Espinosa MRI brain 05/23 revealed bilateral frontal embolic CVA CT brain: There is a 3 mm punctate area of high density in the left frontal periventricular white matter. This could represent small focus of acute blood products. EEG : Mild diffuse encephalopathy, no seizure activity Continue aspirin 162 mg p.o. daily. Okayed with neurology. CV: Hypertensive emergency Acute type B aortic dissection Elevated troponin PEA cardiac arrest 05/23/17, secondary to obstructive sleep apnea/obesity hypoventilation syndrome with Bipap nonadherence. CTA stable. VQ scan negative . Hyperlipidemia Monitor HR and BP keep MAP>65mmHg Currently on carvedilol 25 mg twice daily Diltiazem 90 mg every 6 hours 06/04 Decreased Clonidine from 0.3 to 0.1 mg every 8 hours Repeat echo 05/23: EF 60-65%, no RWMA Evaluated by cardiology, Dr. Bhakta on 05/24 due to troponin elevation. He attributed elevated troponin to PEA arrest, hypoxia, renal insufficiency. No further ischemic workup planned at this time. 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 The dissection extends to the abdominal aorta and terminates in the common iliac arteries bilaterally. The abdominal vessels arise from both the true and false lumens and demonstrate good opacification. Vascular surgery is following- Dr. Guzman Pulm: Obstructive sleep apnea Obesity hypoventilation syndrome Acute hypercapnic respiratory failure intubated 05/30 Ventilator dependent respiratory failure PC/ACIP:25, IT:1.9, PEEP:15, FIO2 80%, decrease FIO2 as kell. Ventilator bundle Bronchodilators, Duoneb Q4, add Mucomyst nebs On Flolan nebs Continue solumederol 60mg Q8hr V/Q scan: low prob PE CXR today- complete opacification of the right upper lobe. Stable left basilar consolidation/effusion and stable patchy airspace disease medially in the right lower lung field s/p bronch today showed mucous plugs/ thick secretions b/l, normal mucosa, no evidence of EBL, BAL performed RUL. Status post bronchoscopy 05/30 revealed no mucus plugging. Normal bronchial mucosa without lesions. No signs of bleeding. LEN negative Renal/: Nonoliguric acute kidney injury Rhabdo Likely secondary to ischemic ATN following cardiac arrest. Furosemide 40 mg IV every 8 hours Cr: 5.6 from 5.4 with UOP: 3790 ml in 24 hrs. Renal is following- Dr. Flannery US abdomen: No hydronephrosis. Creatinine kinase downtrending 2219->1030 GI: Elevated transaminases Hypoalbuminemia Hyperammonia Patient had 3 BM',Nepro @ 35ml/hr-no residuals Famotidine 20 mg by tube daily for GI prophylaxis written to switch to 10 mg twice daily by pharmacy Docusate/senna 1 tablet twice daily, polyethylene glycol 17 g twice daily and lactulose 30 cc twice daily for bowel regimen. Monitor LFT's (trending down),Hep profile is negative Abdominal ultrasound 05/31 -market hepatic congestion. Contracted gallbladder with pericholecystic fluid. Possible acalculous cholecystitis recommend HIDA scan if clinically able. US abdomen: Gall bladder wall thickening and possible pericholecystic fluid without evidence of gallstones. Recommend HIDA scan if clinically indicated Lactulose 30 cc 4 times daily. Ammonia level 42 from 158 Follow-up ammonia level in a.m. GI following Heme: Persistent Leukocytosis Microcytic anemia Monitor CBC VQ scan negative 05/23 BLE u/s negative for DVT 05/23 WBC 16.9->20 ID: MSSA pneumonia Bandemia On ceftriaxone 05/25-12 Previously on Zosyn 05/23-05/25. Abx day #10 for MSSA in sputum. Continued on Zosyn, Vanc discontinued Monitor for signs of infections ( Fever, WBC) ID is following- Bands decreasing 11%->5% Pertinent: 06/01 -sputum -pending 05/31/ -blood cultures 2 -pending 05/30 -bronchoscopy -no growth 05/30 -sputum -rare WBC/budding yeast 05/30 -blood cultures 2 -pending 05/25 -blood cultures 2 -no growth to date 05/25 -urine culture -no growth to date 05/23 -sputum -MSSA 05/23 -blood cultures 2 -no growth to date Endo: Currently on sliding scale insulin NovUlin R medium regimen every 6 hours sliding scale. TSH 2.3 MSK: Elevated BMI Weight loss encouraged PROPH: SCDs /Heparin subcut q 12 hours for DVT prophylaxis. (Previous lace paper machine operator documented discussion with Dr. Guzman who would be amenable to anticoagulation if felt to be indicated for stroke, Dr. Espinosa states currently recommends ASA at this time. ). ACCESS R IJ CVL 05/23- 05/31 Left IJ CVL placed 05/31 Radial arterial line placed 05/31 by respiratory therapy Critical Care: my billing statement This patient remains critically ill with one or more organ systems which are or may become a threat to life. I have spent in excess of 35 minutes discontinuously in the care and management of this patient. This time is exclusive of procedures, and includes, but is not limited to, evaluation of the patient, review of the medical record, discussions with family, consultants, nursing staff, or respiratory therapy, and documentation in the medical record. Physician Yanely Paul MD Jun 04, 2017 10:39
[2017-06-04] MEDS ORDERED: POTASSIUM CHLORIDE 25 MEQ EFFERVESCENT TAB OG-TUBE ONE (10:45)
[2017-06-04] MEDS ORDERED: CISATRACURIUM INJ 100 MG in SODIUM CHLOR 0.9% 250 ML INJ 250 ML IV PRN (11:30)
[2017-06-04] MEDS: CHLORHEXIDINE 0.12% (ORAL KIT) 15 ML CUP MT SCH ×2 (12:00→21:24)
[2017-06-04] MEDS: SODIUM CHLORIDE 0.9% FLUSH 10 ML FLUSH IV FLUSH SCH (12:01)
[2017-06-04] MEDS: EPOPROSTENOL NEB SOLUTION 50 NG/KG/MIN 100 ML NEB SCH ×6 (12:02→21:23)
--- NOTE | 2017-06-04 12:02 | HHI.NPPN ---
Subjective History of Present Illness 36 year old with Aortic dissection ARF Additional Remarks Patient remains intubated Objective Data Data Vital Signs Date Time Temp Pulse Resp B/P (MAP) Pulse Ox O2 Delivery O2 Flow Rate FiO2 06/04/17 08:16 91 65 06/04/17 08:14 Mechanical Ventilator 65 06/04/17 08:14 97.8 59 18 113/57 (75) 93 113/56 (75) 06/04/17 08:14 65 06/04/17 04:00 65 06/04/17 03:35 92 65 06/04/17 03:00 Mechanical Ventilator 65 06/04/17 03:00 64 06/04/17 03:00 98.4 65 16 112/57 (75) 95 127/57 (80) 06/04/17 00:00 65 06/03/17 23:46 93 65 06/03/17 23:00 94 Mechanical Ventilator 65 06/03/17 23:00 98.7 64 16 104/72 (83) 95 06/03/17 23:00 70 06/03/17 20:00 65 06/03/17 19:57 93 65 06/03/17 19:00 94 Mechanical Ventilator 65 06/03/17 19:00 98.5 63 16 126/67 (86) 94 145/71 (95) 06/03/17 19:00 65 06/03/17 16:07 65 06/03/17 15:42 93 65 06/03/17 15:07 98.3 69 16 122/69 (86) 93 138/67 (90) 06/03/17 15:06 69 06/03/17 15:06 93 65 06/03/17 13:50 93 65 06/03/17 12:05 65 -: 06/04/17 0405 06/04/17 0405 Physical Exam General Appearance: Well Developed Eyes Eye Exam: Pupils Equal Neck Neck Exam: Neck Supple Pulmonary Resp Exam: Clear Bilaterally Cardiology CV Exam: Regular, Normal Sinus Rhythm Gastrointestinal/Abdomen GI Exam: Soft, Non-Tender Genitourinary Exam: Clear Urine Integumentary Skin Exam: Intact Extremeties Extremities Exam: Moderate Edema, Pitting Edema, Dependent Edema Assessment/Plan Problem List: (1) Acute renal failure ICD Codes: N17.9 - Acute kidney failure, unspecified Plan: He has large dissection of aorta continue to monitor he is passing urine , creatinine he did receive IV contrast repeat CTA Dissection up to Common Iliac arteries seen with true and false lumen perfused Cr 5.6-> 5.7 non oliguric, on Lasix 40 mg IV q 8 Monitor intake and output, 3.2 L UOP/24 hours Patient has good urine out. Potassium being replaced today. Inc LFT Ongoing azotemia; however good UOP. Potassium low/stable Ongoing UOP is encouraging, continue to monitor. No urgency for HD initiation - continue to closely monitor. (2) Dissection of aorta, thoracoabdominal ICD Codes: I71.03 - Dissection of thoracoabdominal aorta Status: Acute Plan: vascular is following Renal arteries remains perfused Syed Jiménez MD Jun 04, 2017 12:02
[2017-06-04] MEDS: fentaNYL DRIP 250 ML IV PRN ×2 (14:51→23:42)
[2017-06-04] MEDS: cloNIDine HCL 0.1 MG TAB PO SCH ×2 (14:52→21:24)
--- NOTE | 2017-06-04 15:38 | HHI.IDPN ---
Subjective Subjective Remarks Oxygenation improved after BAL FiO2 down to 55%, PEEP remains @ 15 Off paralytics afebrile Antibiotics zosyn Allergies: Coded Allergies: No Known Allergies (Unverified , 05/19/17) Objective . Vital Signs Date Time Temp Pulse Resp B/P (MAP) Pulse Ox O2 Delivery O2 Flow Rate FiO2 06/04/17 15:04 97.6 62 18 125/68 (87) 96 129/66 (87) 06/04/17 15:04 Mechanical Ventilator 65 06/04/17 15:04 62 06/04/17 12:24 97 55 06/04/17 12:17 57 06/04/17 12:17 97.7 58 18 116/60 (78) 96 110/55 (73) 06/04/17 12:17 Mechanical Ventilator 65 06/04/17 12:17 65 06/04/17 08:16 91 65 06/04/17 08:14 94 Mechanical Ventilator 65 06/04/17 08:14 97.8 59 18 113/57 (75) 93 113/56 (75) 06/04/17 08:14 65 06/04/17 08:14 59 06/04/17 04:00 65 06/04/17 03:35 92 65 06/04/17 03:00 Mechanical Ventilator 65 06/04/17 03:00 64 06/04/17 03:00 98.4 65 16 112/57 (75) 95 127/57 (80) 06/04/17 00:00 65 06/03/17 23:46 93 65 06/03/17 23:00 94 Mechanical Ventilator 65 06/03/17 23:00 98.7 64 16 104/72 (83) 95 06/03/17 23:00 70 06/03/17 20:00 65 06/03/17 19:57 93 65 06/03/17 19:00 94 Mechanical Ventilator 65 06/03/17 19:00 98.5 63 16 126/67 (86) 94 145/71 (95) 06/03/17 19:00 65 06/03/17 16:07 65 06/03/17 15:42 93 65 06/04/17 06/04/17 06/05/17 15:00 23:00 07:00 Intake Total 327 ml Balance 327 ml IV Total 327 ml . Laboratory Tests Test 06/03/17 04:55 06/04/17 04:05 White Blood Count 16.9 TH/MM3 20.1 TH/MM3 Red Blood Count 2.93 MIL/MM3 3.29 MIL/MM3 Hemoglobin 8.4 GM/DL 8.9 GM/DL Hematocrit 23.4 % 25.9 % Mean Corpuscular Volume 79.9 FL 78.6 FL Mean Corpuscular Hemoglobin 28.6 PG 27.0 PG Mean Corpuscular Hemoglobin Concent 35.8 % 34.3 % Red Cell Distribution Width 15.7 % 15.9 % Platelet Count 280 TH/MM3 330 TH/MM3 Mean Platelet Volume 9.3 FL 9.0 FL Neutrophils (%) (Auto) 79.8 % 87.6 % Lymphocytes (%) (Auto) 10.4 % 7.7 % Monocytes (%) (Auto) 5.0 % 3.9 % Eosinophils (%) (Auto) 4.3 % 0.3 % Basophils (%) (Auto) 0.5 % 0.5 % Neutrophils # (Auto) 13.5 TH/MM3 17.6 TH/MM3 Lymphocytes # (Auto) 1.8 TH/MM3 1.5 TH/MM3 Monocytes # (Auto) 0.8 TH/MM3 0.8 TH/MM3 Eosinophils # (Auto) 0.7 TH/MM3 0.1 TH/MM3 Basophils # (Auto) 0.1 TH/MM3 0.1 TH/MM3 CBC Comment AUTO DIFF AUTO DIFF Differential Total Cells Counted 100 100 Neutrophils % (Manual) 71 % 86 % Band Neutrophils % 11 % 5 % Lymphocytes % 5 % 4 % Monocytes % 6 % 3 % Eosinophils % 5 % Neutrophils # (Manual) 14.2 TH/MM3 18.7 TH/MM3 Metamyelocytes 2 % Nucleated Red Blood Cells 5 /100 WBC 1 /100 WBC Differential Comment FINAL DIFF MANUAL FINAL DIFF MANUAL Atypical Lymphocytes % Platelet Estimate NORMAL NORMAL Platelet Morphology Comment ENLARGED NORMAL Red Cell Morphology Comment Myelocytes 2 % Basophilic Stippling FAINT Laboratory Tests Test 06/02/17 18:30 06/03/17 04:55 06/03/17 18:00 06/04/17 04:05 Potassium Level 2.9 MEQ/L 3.2 MEQ/L 3.4 MEQ/L 3.4 MEQ/L Blood Urea Nitrogen 65 MG/DL 75 MG/DL Creatinine 5.64 MG/DL 5.77 MG/DL Random Glucose 90 MG/DL 139 MG/DL Total Protein 6.1 GM/DL 6.7 GM/DL Albumin 1.7 GM/DL 1.7 GM/DL Calcium Level 8.0 MG/DL 8.4 MG/DL Alkaline Phosphatase 111 U/L 113 U/L Aspartate Amino Transf (AST/SGOT) 672 U/L 454 U/L Alanine Aminotransferase (ALT/SGPT) 1088 U/L 945 U/L Total Bilirubin 2.4 MG/DL 1.9 MG/DL Sodium Level 145 MEQ/L 145 MEQ/L Chloride Level 109 MEQ/L 108 MEQ/L Carbon Dioxide Level 22.5 MEQ/L 23.9 MEQ/L Anion Gap 14 MEQ/L 13 MEQ/L Estimat Glomerular Filtration Rate 14 ML/MIN 14 ML/MIN Total Creatine Kinase 2219 U/L 1030 U/L Creatine Kinase MB 3.2 NG/ML 1.6 NG/ML Creatine Kinase MB % 0.1 % 0.2 % Microbiology Date/Time Source Procedure Growth Status 06/04/17 10:48 Sputum Nasal Tracheal Aspirate Gram Stain Pending Received 06/04/17 10:48 Sputum Nasal Tracheal Aspirate Sputum Culture Pending Received 06/03/17 09:00 Bronchial Washings Other Gram Stain - Final Resulted 06/03/17 09:00 Bronchial Washings Other Bronchial Culture - Preliminary MODERATE GROWTH NORMAL RESPIRATORY FL... Resulted Imaging Last Impressions Chest X-Ray 06/04/17 0600 Signed Impressions: Service Date/Time: Sunday, June 04, 2017 07:42 - CONCLUSION: Given the degree of hypoinflation the overall lung exam remains stable. The endotracheal tube is positioned 1 cm above the level of the clavicles. Lori Villasenor MD Abdomen X-Ray 06/02/17 0000 Signed Impressions: Service Date/Time: May 10:18 - CONCLUSION: NG tip in stomach. Left basilar airspace disease. Elevated right hemidiaphragm. Bowel gas pattern demonstrates mild ileus Tc Varghese MD Liver Ultrasound 05/31/17 1434 Signed Impressions: Service Date/Time: Wednesday, May 31, 2017 14:40 - CONCLUSION: 1. Interval apparent hepatomegaly with diffusely increased hepatic echogenicity. Given the acuity of findings, findings may reflect acute hepatitis or congestive hepatopathy. 2. Persistently contracted gallbladder which accentuates the gallbladder wall with persistent gallbladder wall thickening and trace pericholecystic fluid. These findings are commonly seen in the setting of liver disease although differential considerations include acalculous cholecystitis. HIDA scan may be performed for better evaluation as clinically appropriate. 3. Andrew Kraft MD Lung Scan-[facility] Nuclear Medicine 05/23/17 Signed Impressions: Service Date/Time: Tuesday, May 23, 2017 10:22 - CONCLUSION: Low probability of pulmonary embolism. Buddy Harrison MD FACR Lower Extremity Ultrasound 05/23/17 Signed Impressions: Service Date/Time: Tuesday, May 23, 2017 08:02 - CONCLUSION: Negative for deep venous thrombosis. Buddy Harrison MD FACR Head CT 05/23/17 Signed Impressions: Service Date/Time: Tuesday, May 23, 2017 03:56 - CONCLUSION: 1. Examination quality is degraded by motion artifact. 2. No definite acute finding is identified. There is a 3 mm punctate area of high density in the left frontal periventricular white matter. This could represent small focus of acute blood products. Suggest attention to this on followup imaging. Wiliam Buck MD Brain MRI 05/23/17 Signed Impressions: Service Date/Time: Tuesday, May 23, 2017 15:59 - CONCLUSION: 1. 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 2. No hemorrhage observe. 3. Pansinus disease. Rudy Cervantes Jr., MD Aorta CTA 05/23/17 Signed Impressions: Service Date/Time: Tuesday, May 23, 2017 03:58 - CONCLUSION: 1. 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 The dissection extends to the abdominal aorta and terminates in the common iliac arteries bilaterally. The abdominal vessels arise from both the true and false lumens and demonstrate good opacification. Suggest correlating with the patient's prior imaging study which documents the dissection. 2. 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 3. There is stranding of the periaortic fat adjacent to the arch aneurysm. 4. There are small bilateral pleural effusions, left larger than right, with bilateral volume loss and/or airspace consolidation bilaterally. Wiliam Buck MD Abdomen Ultrasound 05/23/17 0000 Signed Impressions: Service Date/Time: Tuesday, May 23, 2017 17:22 - CONCLUSION: 1. Gall bladder wall thickening and possible pericholecystic fluid without evidence of gallstones. May consider perform hepatic biliary tract scan to evaluate for acalculous cholecystitis. 2. No focal abnormality seen within the liver. Rudy Pollock MD Physical Exam CONSTITUTIONAL/GENERAL: This is an adequately nourished patient, sedated int'd on vent TUBES/LINES/DRAINS: SKIN: No jaundice, rashes, or lesions. Skin temperature appropriate. Not diaphoretic. EYES: Pupils equal and round and reactive. Extraocular motions intact. No scleral icterus. No injection or drainage. Fundi not examined. ENT: Hearing not tested. Nose without bleeding or purulent drainage. Throat without visible erythema, exudates, masses, or lesions. NECK: Trachea midline. Supple, nontender. CARDIOVASCULAR: Regular rate and rhythm without murmurs, gallops, or rubs. No JVD. Peripheral pulses symmetric. RESPIRATORY/CHEST: Symmetric, unlabored respirations. B/l rhonchi to auscultation. Breath sounds equal bilaterally. GASTROINTESTINAL: Abdomen soft, non-tender, nondistended. No hepato-splenomegaly , or palpable masses. No guarding. Bowel sounds present. GENITOURINARY: Without palpable bladder distension. Ledesma catheter in place with very light yellow MUSCULOSKELETAL: Extremities without clubbing, cyanosis, Promient edema, 3+ No mottling or clubbing. NEUROLOGICAL: sedated heavily, unrespomsive PSYCHIATRIC: unable to assess Assessment & Plan Remarks Type B AAA dissection PNA Acute VDRF - failure to wean Non oliguric ARF Fever Leukocytosis, bandemia to some degree leukocytosis is probably 2/2 sterroids; wont expect bancdemis 2/2 it however bands are less Abx associated ileus , diarrhea - c.diff negative magno aragon start cefepime Discussed Condition With Nalini Bliss MD Jun 04, 2017 15:37
[2017-06-04] MEDS: MIDAZOLAM 100 MG/100 ML INJ 100 ML IV PRN (18:04)
[2017-06-04] MEDS: CEFEPIME INJ 2,000 MG in SODIUM CHLORIDE 0.9% INJ 100 ML IV SCH (18:21)
[2017-06-05] VITALS (14 sets, daily range): BP systolic 115–150; BP diastolic 65–86; PULSE 55–61; RESP 16; TEMP 97–97.9; O2SAT 93–98
[2017-06-05] MEDS: RESP: ALBUTEROL 2.5 MG/IPRATROPIUM 0.5 MG NEB (SCH) NEB ×6 (00:46→19:46)
[2017-06-05] MEDS: RESP: ACETYLCYSTEINE 10% 30 ML NEB NEB SCH ×6 (00:46→19:46)
[2017-06-05] MEDS: LACTULOSE SYRUP 20 GM/30 ML CUP OG-TUBE SCH ×4 (01:39→17:17)
[2017-06-05] MEDS: DILTIAZEM HCL 90 MG TAB PO SCH ×4 (01:39→17:17)
[2017-06-05] MEDS: FUROSEMIDE 40 MG/4 ML VIAL IV PUSH SCH ×3 (01:39→20:33)
[2017-06-05] MEDS: CHLORHEXIDINE GLUCONATE 2 % 1 PACK (2 CLOTHS) TOP SCH (04:00)
[2017-06-05] MEDS: INSULIN NovoLIN REGULAR SUPPLEMENTAL SCALE SQ SCH ×4 (06:00→18:00)
[2017-06-05] MEDS: methylPREDNISolone SOD SUCC 40 MG/1 ML VIAL IV PUSH SCH ×3 (06:10→22:13)
[2017-06-05] MEDS: ARTIFICIAL TEARS OPTH SOLN 15 ML BTL EACH EYE SCH ×3 (06:10→22:11)
[2017-06-05] MEDS: cloNIDine HCL 0.1 MG TAB PO SCH ×3 (06:11→22:13)
--- NOTE | 2017-06-05 06:22 | RADRPT ---
EXAM DATE/TIME: 06/05/2017 04:58 [facility] COMPARISON: CHEST SINGLE AP, June 04, 2017, 7:42. INDICATIONS : Shortness of breath, possible pulmonary disease. MEDICAL HISTORY : Hypertension. Aortic dissection SURGICAL HISTORY : None. ENCOUNTER: Subsequent ACUITY: 2 weeks PAIN SCORE: Non-responsive. LOCATION: Bilateral chest FINDINGS: A single view of the chest demonstrates improving aeration in the right hemithorax. Persistent left b asilar consolidation/effusion. Stable position of life support tubes. CONCLUSION: 1. Improving aeration in the right hemithorax with persistent left basilar consolidation/effusion. 2. Stable position of life support tubes. Rodrigue Miller MD on June 05, 2017 at 6:20 Board Certified Radiologist. This report was verified electronically.
[2017-06-05 07:03] LABS: ALBUMIN 1.8 GM/DL (3.4-5.0); ALKALINE PHOSPHATASE 121 U/L (45-117); ALT (GPT) 718 U/L (12-78); AST (GOT) 230 U/L (15-37); BICARBONATE 26.9 MEQ/L (21.0-32.0); BLOOD UREA NITROGEN 90 MG/DL (7-18); CALCIUM 8.8 MG/DL (8.5-10.1); CHLORIDE 108 MEQ/L (98-107); DIRECT BILIRUBIN ADULT 0.7 MG/DL (0.0-0.2); GLOMERULAR FILTRATION RATE 14 ML/MIN (>89); GLUCOSE,RANDOM 146 MG/DL (74-106); MAGNESIUM 2.1 MG/DL (1.5-2.5); PHOSPHORUS 3.4 MG/DL (2.5-4.9); SODIUM (NA) 147 MEQ/L (136-145); TOTAL BILIRUBIN ADULT 1.1 MG/DL (0.2-1.0); TOTAL PROTEIN 7.2 GM/DL (6.4-8.2)
[2017-06-05 07:04] LABS: AUTOMATED NEUTROPHIL # 15.7 TH/MM3 (1.8-7.7); BASOPHIL # 0.1 TH/MM3 (0-0.2); BASOPHIL % 0.4 % (0.0-2.0); EOSINOPHIL % 0.1 % (0.0-4.0); HEMATOCRIT 28.6 % (39.0-51.0); HEMOGLOBIN 9.3 GM/DL (13.0-17.0); LYMPH % 8.3 % (9.0-44.0); LYMPHOCYTE # 1.5 TH/MM3 (1.0-4.8); MEAN CELL VOLUME 79.1 FL (80.0-100.0); MEAN CORPUSCULAR HEMOGLOBIN 25.8 PG (27.0-34.0); MEAN CORPUSCULAR HGB CONC 32.6 % (32.0-36.0); MONO % 5.9 % (0.0-8.0); MONOCYTE # 1.1 TH/MM3 (0-0.9); NEUT % 85.3 % (16.0-70.0); PLATELET COUNT 354 TH/MM3 (150-450); RED BLOOD COUNT 3.62 MIL/MM3 (4.50-5.90); RED CELL DISTRIBUTION WIDTH 16.2 % (11.6-17.2); WHITE BLOOD COUNT 18.4 TH/MM3 (4.0-11.0)
[2017-06-05 08:12] LABS: BANDS 8 % (0-6); CORRECTED NUCLEATED RBC 3 /100 WBC (0-0); LYMPHOCYTES 5 % (9-44); MONOCYTES 1 % (0-8); MYELOCYTES 1 % (0-0); NEUTROPHIL # MANUAL DIFF 17.3 TH/MM3 (1.8-7.7); NUCLEATED RED BLOOD CELL 3 (0-0); POLYS (SEG NEUTROPHILS) 85 % (16-70)
[2017-06-05] MEDS ORDERED: POTASSIUM BICARBONATE 25 MEQ EFFERVESCENT TAB OG-TUBE ONE (08:45)
[2017-06-05] MEDS: POLYETHYLENE GLYCOL 17 GM PKG NG SCH ×2 (09:00→21:00)
[2017-06-05] MEDS: DOCUSATE SODIUM 50 MG/SENNA 8.6 MG TAB PO SCH ×2 (09:00→21:00)
[2017-06-05] MEDS: fentaNYL DRIP 250 ML IV PRN ×2 (09:30→17:17)
[2017-06-05] MEDS: MIDAZOLAM 100 MG/100 ML INJ 100 ML IV PRN ×2 (09:30→17:16)
[2017-06-05] MEDS: EPOPROSTENOL NEB SOLUTION 50 NG/KG/MIN 100 ML NEB SCH ×2 (09:30)
[2017-06-05] MEDS: FAMOTIDINE 20 MG/2 ML VIAL IV PUSH SCH ×2 (09:31→20:34)
[2017-06-05] MEDS: HEPARIN SODIUM - SQ 10,000 UNITS/ML VIAL SQ SCH ×2 (09:31→20:34)
[2017-06-05] MEDS: ASPIRIN 81 MG CHEW TAB CHEW SCH (09:32)
[2017-06-05] MEDS: CARVEDILOL 12.5 MG TAB PO SCH ×2 (09:32→21:00)
[2017-06-05] MEDS: CHLORHEXIDINE 0.12% (ORAL KIT) 15 ML CUP MT SCH ×2 (09:32→20:32)
[2017-06-05] MEDS: SODIUM CHLORIDE 0.9% FLUSH 10 ML FLUSH IV FLUSH SCH (09:33)
--- NOTE | 2017-06-05 10:29 | HHI.CCPN ---
Subjective Remarks/Hospital Course 05/19: Is a 36-year-old male with a history of hypertension who is on vacation from the [place] area who did not take his antihypertensives today because he is on vacation, and was having sexual intercourse when he had sudden onset of severe substernal radiating to the back chest pain earlier today. 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 He was emergently transferred to [facility] for further management. I evaluated the patient on arrival to the ICU by EVAC. Patient denies abdominal pain. Still endorses chest pain although this is improving. Patient denies any other symptoms. CT chest abdomen pelvis was reviewed and reviewed with myself and Dr. Guzman and does demonstrate a type B dissection. 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 Initial laboratory evidence demonstrates a lactate of 1.3, creatinine 1.2, normal LFTs. 05/20: On home C Pap. Urine output 30 cc/h currently. Remains on esmolol and labetalol drips. Remains drowsy though arousable. +4.4 L 05/21: Resting comfortably on nasal cannula. Awake and alert currently. Denies any shortness of breath or chest pain currently. 05/22: AAO x3, resting comfortably. 05/23 Patient went into PEA arrest early this morning now sedated with Diprivan and intubated. Off Esmolol drip. 05/24 Patient is sedated with Diprivan and intubated. On Labetolol drip. MRI brain yesterday showed multiple small infracts, no hemorrhage. 05/25 Patient remains intubated and sedated. T: 100.5 last night. Renal function is worsening with Cr: 3.6 from 3.4 and UOP: 2650ml in 24 hrs. 05/26 No events overnight. Sedated and intubated. Afebrile. Cr: 3.62 , UOP: 1950ml in 24 hrs 05/27 Patient was extubated yesterday placed on BIPAP overnight. Cr: 3.42 today , UOP: 1800 ml in 24 hrs 05/28 Extubated yesterday and per report was compliant with Bipap overnight Remains on esmolol drip 200 mcg/kg/min and SBP in 140s. ZULY, probable ATN non- oliguric however I>>0 with significant intake from MIVF as well as 180 mL/hr from esmolol drip. IVF d/c per nephrology and transitioning off esmolol to minimize fluid. Hugo now per my discussion with Dr. Thornton. He is tachypneic, obtained ABG with hypercapnea on simple mask. Placing On Bipap. at bedside requesting eventual transfer to [place], though she realized he is not stable for that yet. 05/29: Remains on BiPAP since 299 with increasing respiratory rates. Will attempt a more aggressive diuresis. We started on esmolol drip due to persistent tachycardia and unable to reach target blood pressure and heart rate requirements. At high risk for reintubation. 05/30: Remained hypotensive overnight. This a.m. desaturated, tachypneic requiring high percent on BiPAP hence intubated by butcherette. Will require bronchoscopy this afternoon. Continue with aggressive diuresis. Broad antibiotic coverage. Start tube feeding. The systolic blood pressure better controlled while intubated on propofol and fentanyl drips. 05/31: T-max 102.8. Currently 99.6. FiO2 down to 80%. The same noted elevated transaminases AST of 2674. ALT of 1590. Creatinine is increased to 3.07 to 4.36. +2 L past 24 hours. One bowel movement. Noted prior gallbladder wall thickening on previous ultrasound. We will repeat today Subjective 06/01: T-max 102.5. Currently 98.9. Desaturate overnight resolved currently FiO2 of 80%. 4500 cc urine output. Creatinine continues to rise currently 4.9. CPK currently 6165. We will discontinue propofol with hepatomegaly, rhabdomyolysis possibly indicative propofol infusion syndrome. 06/02 Patient remains intubated and sedated. On Fentanyl, Versed and Nimbex. T: 100.0 at midnight. On PC/AC with PEEP:15, FIO2 50% Renal function continue to decline with Cr: 5.40 from 4.91 and UOP: 2895 ml in 24 hrs 06/03 Patient remains intubated and sedated with Versed, Fentanyl drips. Remains on Nimbex and Flolan. Cr: 5.6 from 5.4 with UOP: 3790 ml in 24 hrs. 06/04:Afebrile. Overnight the patient had an episode of hypotension during the and all sedation was briefly discontinued, then resumed for ventilator synchrony. Clonidine dosage decreased. Patient continues on pressure control mode, and Flolan for adequate oxygenation. Creatinine noted to be 5.7 weight urine output 3220cc/24 hrs. 06/05: Afebrile. This x-ray revealed improving area aeration of the right hemithorax. PEEP decreased this a.m. to 12, patient continues on FiO2 55% and Flolan, planned weaning. Electrolytes currently being replaced. Elevated liver enzymes continue to down trend. Objective Vital Signs Date Time Temp Pulse Resp B/P (MAP) Pulse Ox O2 Delivery O2 Flow Rate FiO2 06/05/17 08:00 97 55 06/05/17 03:00 55 06/05/17 03:00 97.9 16 115/85 (95) 147/80 (102) 06/05/17 03:00 Mechanical Ventilator Intake and Output 06/05/17 06/05/17 06/06/17 08:00 16:00 00:00 Intake Total 530 ml Output Total 2400 ml Balance -1870 ml Result Diagram: 06/05/17 0517 06/05/17 0517 Other Results Laboratory Tests Test 06/05/17 06:03 Blood Gas Puncture Site LT RADIAL Blood Gas Patient Temperature 98.6 Blood Gas HCO3 27 mmol/L (22-26) Blood Gas Base Excess 3.1 mmol/L (-2-2) Blood Gas Oxygen Saturation 95 % (90-100) Arterial Blood pH 7.46 (7.380-7.420) Arterial Blood Partial Pressure CO2 39 mmHg (38-42) Arterial Blood Partial Pressure O2 91 mmHG (61-120) Arterial Blood Oxygen Content 12.7 Vol % (12.0-20.0) Arterial Blood Carboxyhemoglobin 0.9 % (0-4) Arterial Blood Methemoglobin 0.8 % (0-2) Blood Gas Hemoglobin 9.4 G/DL (12.0-16.0) Oxygen Delivery Device VENTILATOR Blood Gas Ventilator Setting PC/AC Blood Gas Inspired Oxygen 55 % Imaging Last Impressions Chest X-Ray 06/04/17 0600 Signed Impressions: Service Date/Time: Sunday, June 04, 2017 07:42 - CONCLUSION: Given the degree of hypoinflation the overall lung exam remains stable. The endotracheal tube is positioned 1 cm above the level of the clavicles. Lori Villasenor MD Abdomen X-Ray 06/02/17 0000 Signed Impressions: Service Date/Time: May 10:18 - CONCLUSION: NG tip in stomach. Left basilar airspace disease. Elevated right hemidiaphragm. Bowel gas pattern demonstrates mild ileus Tc Varghese MD Liver Ultrasound 05/31/17 1434 Signed Impressions: Service Date/Time: Wednesday, May 31, 2017 14:40 - CONCLUSION: 1. Interval apparent hepatomegaly with diffusely increased hepatic echogenicity. Given the acuity of findings, findings may reflect acute hepatitis or congestive hepatopathy. 2. Persistently contracted gallbladder which accentuates the gallbladder wall with persistent gallbladder wall thickening and trace pericholecystic fluid. These findings are commonly seen in the setting of liver disease although differential considerations include acalculous cholecystitis. HIDA scan may be performed for better evaluation as clinically appropriate. 3. Andrew Kraft MD Lung Scan-V Nuclear Medicine 05/23/17 0000 Signed Impressions: Service Date/Time: Tuesday, May 23, 2017 10:22 - CONCLUSION: Low probability of pulmonary embolism. Buddy Harrison MD FACR Lower Extremity Ultrasound 05/23/17 0000 Signed Impressions: Service Date/Time: Tuesday, May 23, 2017 08:02 - CONCLUSION: Negative for deep venous thrombosis. Buddy Harrison MD FACR Head CT 05/23/17 0000 Signed Impressions: Service Date/Time: Tuesday, May 23, 2017 03:56 - CONCLUSION: 1. Examination quality is degraded by motion artifact. 2. No definite acute finding is identified. There is a 3 mm punctate area of high density in the left frontal periventricular white matter. This could represent small focus of acute blood products. Suggest attention to this on followup imaging. Wiliam Buck MD Brain MRI 05/23/17 0000 Signed Impressions: Service Date/Time: Tuesday, May 23, 2017 15:59 - CONCLUSION: 1. 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 2. No hemorrhage observe. 3. Pansinus disease. Rudy Cervantes Jr., MD Aorta CTA 05/23/17 0000 Signed Impressions: Service Date/Time: Tuesday, May 23, 2017 03:58 - CONCLUSION: 1. 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 The dissection extends to the abdominal aorta and terminates in the common iliac arteries bilaterally. The abdominal vessels arise from both the true and false lumens and demonstrate good opacification. Suggest correlating with the patient's prior imaging study which documents the dissection. 2. 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 3. There is stranding of the periaortic fat adjacent to the arch aneurysm. 4. There are small bilateral pleural effusions, left larger than right, with bilateral volume loss and/or airspace consolidation bilaterally. Wiliam Buck MD Abdomen Ultrasound 05/23/17 0000 Signed Impressions: Service Date/Time: Tuesday, May 23, 2017 17:22 - CONCLUSION: 1. Gall bladder wall thickening and possible pericholecystic fluid without evidence of gallstones. May consider perform hepatic biliary tract scan to evaluate for acalculous cholecystitis. 2. No focal abnormality seen within the liver. Rudy Pollock MD Last Impressions Chest X-Ray 06/04/17 0600 Signed Impressions: Service Date/Time: Sunday, June 04, 2017 07:42 - CONCLUSION: Given the degree of hypoinflation the overall lung exam remains stable. The endotracheal tube is positioned 1 cm above the level of the clavicles. Lori Villasenor MD Abdomen X-Ray 06/02/17 0000 Signed Impressions: Service Date/Time: May 10:18 - CONCLUSION: NG tip in stomach. Left basilar airspace disease. Elevated right hemidiaphragm. Bowel gas pattern demonstrates mild ileus Tc Varghese MD Liver Ultrasound 05/31/17 1434 Signed Impressions: Service Date/Time: Wednesday, May 31, 2017 14:40 - CONCLUSION: 1. Interval apparent hepatomegaly with diffusely increased hepatic echogenicity. Given the acuity of findings, findings may reflect acute hepatitis or congestive hepatopathy. 2. Persistently contracted gallbladder which accentuates the gallbladder wall with persistent gallbladder wall thickening and trace pericholecystic fluid. These findings are commonly seen in the setting of liver disease although differential considerations include acalculous cholecystitis. HIDA scan may be performed for better evaluation as clinically appropriate. 3. Andrew Kraft MD Lung Scan-VQ Nuclear Medicine 05/23/17 0000 Signed Impressions: Service Date/Time: Tuesday, May 23, 2017 10:22 - CONCLUSION: Low probability of pulmonary embolism. Buddy Harrison MD FACR Lower Extremity Ultrasound 05/23/17 0000 Signed Impressions: Service Date/Time: Tuesday, May 23, 2017 08:02 - CONCLUSION: Negative for deep venous thrombosis. Buddy Harrison MD FACR Head CT 05/23/17 0000 Signed Impressions: Service Date/Time: Tuesday, May 23, 2017 03:56 - CONCLUSION: 1. Examination quality is degraded by motion artifact. 2. No definite acute finding is identified. There is a 3 mm punctate area of high density in the left frontal periventricular white matter. This could represent small focus of acute blood products. Suggest attention to this on followup imaging. Wiliam Buck MD Brain MRI 05/23/17 0000 Signed Impressions: Service Date/Time: Tuesday, May 23, 2017 15:59 - CONCLUSION: 1. 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 2. No hemorrhage observe. 3. Pansinus disease. Rudy Cervantes Jr., MD Aorta CTA 05/23/17 Signed Impressions: Service Date/Time: Tuesday, May 23, 2017 03:58 - CONCLUSION: 1. 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 The dissection extends to the abdominal aorta and terminates in the common iliac arteries bilaterally. The abdominal vessels arise from both the true and false lumens and demonstrate good opacification. Suggest correlating with the patient's prior imaging study which documents the dissection. 2. 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 3. There is stranding of the periaortic fat adjacent to the arch aneurysm. 4. There are small bilateral pleural effusions, left larger than right, with bilateral volume loss and/or airspace consolidation bilaterally. Wiliam Buck MD Abdomen Ultrasound 05/23/17 0000 Signed Impressions: Service Date/Time: Tuesday, May 23, 2017 17:22 - CONCLUSION: 1. Gall bladder wall thickening and possible pericholecystic fluid without evidence of gallstones. May consider perform hepatic biliary tract scan to evaluate for acalculous cholecystitis. 2. No focal abnormality seen within the liver. Rudy Pollock MD Last Impressions Chest X-Ray 06/04/17 0600 Signed Impressions: Service Date/Time: Sunday, June 04, 2017 07:42 - CONCLUSION: Given the degree of hypoinflation the overall lung exam remains stable. The endotracheal tube is positioned 1 cm above the level of the clavicles. Lori Villasenor MD Abdomen X-Ray 06/02/17 0000 Signed Impressions: Service Date/Time: May 10:18 - CONCLUSION: NG tip in stomach. Left basilar airspace disease. Elevated right hemidiaphragm. Bowel gas pattern demonstrates mild ileus Tc Varghese MD Liver Ultrasound 05/31/17 1434 Signed Impressions: Service Date/Time: Wednesday, May 31, 2017 14:40 - CONCLUSION: 1. Interval apparent hepatomegaly with diffusely increased hepatic echogenicity. Given the acuity of findings, findings may reflect acute hepatitis or congestive hepatopathy. 2. Persistently contracted gallbladder which accentuates the gallbladder wall with persistent gallbladder wall thickening and trace pericholecystic fluid. These findings are commonly seen in the setting of liver disease although differential considerations include acalculous cholecystitis. HIDA scan may be performed for better evaluation as clinically appropriate. 3. Andrew Kraft MD Lung Scan- Nuclear Medicine 05/23/17 0000 Signed Impressions: Service Date/Time: Tuesday, May 23, 2017 10:22 - CONCLUSION: Low probability of pulmonary embolism. Buddy Harrison MD FACR Lower Extremity Ultrasound 05/23/17 0000 Signed Impressions: Service Date/Time: Tuesday, May 23, 2017 08:02 - CONCLUSION: Negative for deep venous thrombosis. Buddy Harrison MD FACR Head CT 05/23/17 0000 Signed Impressions: Service Date/Time: Tuesday, May 23, 2017 03:56 - CONCLUSION: 1. Examination quality is degraded by motion artifact. 2. No definite acute finding is identified. There is a 3 mm punctate area of high density in the left frontal periventricular white matter. This could represent small focus of acute blood products. Suggest attention to this on followup imaging. Wiliam Buck MD Brain MRI 05/23/17 0000 Signed Impressions: Service Date/Time: Tuesday, May 23, 2017 15:59 - CONCLUSION: 1. 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 2. No hemorrhage observe. 3. Pansinus disease. Rudy Cervantes Jr., MD Aorta CTA 05/23/17 0000 Signed Impressions: Service Date/Time: Tuesday, May 23, 2017 03:58 - CONCLUSION: 1. 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 The dissection extends to the abdominal aorta and terminates in the common iliac arteries bilaterally. The abdominal vessels arise from both the true and false lumens and demonstrate good opacification. Suggest correlating with the patient's prior imaging study which documents the dissection. 2. 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 3. There is stranding of the periaortic fat adjacent to the arch aneurysm. 4. There are small bilateral pleural effusions, left larger than right, with bilateral volume loss and/or airspace consolidation bilaterally. Wiliam Buck MD Abdomen Ultrasound 05/23/17 0000 Signed Impressions: Service Date/Time: Tuesday, May 23, 2017 17:22 - CONCLUSION: 1. Gall bladder wall thickening and possible pericholecystic fluid without evidence of gallstones. May consider perform hepatic biliary tract scan to evaluate for acalculous cholecystitis. 2. No focal abnormality seen within the liver. Rudy Pololck MD Last Impressions Chest X-Ray 06/03/17 0600 Signed Impressions: Service Date/Time: Saturday, June 03, 2017 04:16 - CONCLUSION: 1. Interval complete opacification of the right upper lobe. 2. Stable left basilar consolidation/effusion and stable patchy airspace disease medially in the right lower lung field. 3. Stable position of life support tubes. Rodrigue Miller MD Abdomen X-Ray 06/02/17 0000 Signed Impressions: Service Date/Time: May 10:18 - CONCLUSION: NG tip in stomach. Left basilar airspace disease. Elevated right hemidiaphragm. Bowel gas pattern demonstrates mild ileus Tc Varghese MD Liver Ultrasound 05/31/17 1434 Signed Impressions: Service Date/Time: Wednesday, May 31, 2017 14:40 - CONCLUSION: 1. Interval apparent hepatomegaly with diffusely increased hepatic echogenicity. Given the acuity of findings, findings may reflect acute hepatitis or congestive hepatopathy. 2. Persistently contracted gallbladder which accentuates the gallbladder wall with persistent gallbladder wall thickening and trace pericholecystic fluid. These findings are commonly seen in the setting of liver disease although differential considerations include acalculous cholecystitis. HIDA scan may be performed for better evaluation as clinically appropriate. 3. Andrew Kraft MD Lung Scan-VQ Nuclear Medicine 05/23/17 Signed Impressions: Service Date/Time: Tuesday, May 23, 2017 10:22 - CONCLUSION: Low probability of pulmonary embolism. Buddy Harrison MD FACR Lower Extremity Ultrasound 05/23/17 Signed Impressions: Service Date/Time: Tuesday, May 23, 2017 08:02 - CONCLUSION: Negative for deep venous thrombosis. Buddy Harrison MD FACR Head CT 05/23/17 Signed Impressions: Service Date/Time: Tuesday, May 23, 2017 03:56 - CONCLUSION: 1. Examination quality is degraded by motion artifact. 2. No definite acute finding is identified. There is a 3 mm punctate area of high density in the left frontal periventricular white matter. This could represent small focus of acute blood products. Suggest attention to this on followup imaging. Wiliam Buck MD Brain MRI 05/23/17 Signed Impressions: Service Date/Time: Tuesday, May 23, 2017 15:59 - CONCLUSION: 1. 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 2. No hemorrhage observe. 3. Pansinus disease. Rudy Cervantes Jr., MD Aorta CTA 05/23/17 Signed Impressions: Service Date/Time: Tuesday, May 23, 2017 03:58 - CONCLUSION: 1. 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 The dissection extends to the abdominal aorta and terminates in the common iliac arteries bilaterally. The abdominal vessels arise from both the true and false lumens and demonstrate good opacification. Suggest correlating with the patient's prior imaging study which documents the dissection. 2. 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 3. There is stranding of the periaortic fat adjacent to the arch aneurysm. 4. There are small bilateral pleural effusions, left larger than right, with bilateral volume loss and/or airspace consolidation bilaterally. Wiliam Buck MD Abdomen Ultrasound 05/23/17 0000 Signed Impressions: Service Date/Time: Tuesday, May 23, 2017 17:22 - CONCLUSION: 1. Gall bladder wall thickening and possible pericholecystic fluid without evidence of gallstones. May consider perform hepatic biliary tract scan to evaluate for acalculous cholecystitis. 2. No focal abnormality seen within the liver. Rudy Pollock MD Objective Remarks GENERAL: This is a 36-year-old well-developed well-nourished AA male resting in bed orotracheally intubated, and sedated SKIN: Warm and dry, adequately perfused. HEAD: Normocephalic. EYES: Pupils 3 mm and reactive. No scleral icterus. No injection or drainage. NECK: Supple, trachea midline. No JVD or lymphadenopathy. Left IJ CVL is clean dry and intact CARDIOVASCULAR: Distant. RRR. S1, S2 no S4. Cannot appreciate murmurs, clicks , gallops or rubs RESPIRATORY: Coarse rhonchorous crackles noted throughout all lung [place] anterior-posterior bilaterally. No wheezing GASTROINTESTINAL: Abdomen soft, non-tender, nondistended. Hypoactive bowel sounds are appreciated MUSCULOSKELETAL: No cyanosis. Edema 2+ bilateral upper and lower extremities NEURO: Currently sedated on Versed and fentanyl drips. Positive gag and corneal reflex. Positive cough. 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 On Fentanyl, Versed infusion to maintain ventilator synchrony. Propofol discontinued 06/03. Nimbex discontinued 06/03 Goal of RASS -2 Daily sedation vacation when appropriate Acetaminophen 650 mg by tube every 6 hours as needed fever discontinued due to elevated transaminases Evaluated by neurology/Dr. Espinosa MRI brain 05/23 revealed bilateral frontal embolic CVA CT brain: There is a 3 mm punctate area of high density in the left frontal periventricular white matter. This could represent small focus of acute blood products. EEG : Mild diffuse encephalopathy, no seizure activity Continue aspirin 162 mg p.o. daily. Okayed with neurology. CV: Hypertensive emergency Acute type B aortic dissection Elevated troponin PEA cardiac arrest 05/23/17, secondary to obstructive sleep apnea/obesity hypoventilation syndrome with Bipap nonadherence. CTA stable. VQ scan negative . Hyperlipidemia Monitor HR and BP keep MAP>65mmHg Currently on carvedilol 25 mg twice daily Diltiazem 90 mg every 6 hours 06/04 Decreased Clonidine from 0.3 to 0.1 mg every 8 hours Repeat echo 05/23: EF 60-65%, no RWMA Evaluated by cardiology, Dr. Bhakta on 05/24 due to troponin elevation. He attributed elevated troponin to PEA arrest, hypoxia, renal insufficiency. No further ischemic workup planned at this time. 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 The dissection extends to the abdominal aorta and terminates in the common iliac arteries bilaterally. The abdominal vessels arise from both the true and false lumens and demonstrate good opacification. Vascular surgery is following- Dr. Guzman Pulm: Obstructive sleep apnea Obesity hypoventilation syndrome Acute hypercapnic respiratory failure intubated 05/30 Ventilator dependent respiratory failure PC/ACIP:25, IT:1.9, PEEP:12, FIO2 55%, decrease FIO2 as kell. Ventilator bundle Bronchodilators, Duoneb Q4, add Mucomyst nebs On Flolan nebs Continue solumederol 60mg Q8hr V/Q scan: low prob PE CXR 06/05- improving area a chin right hemothorax with persistent left basilar consolidation/effusion and stable patchy airspace disease s/p bronch today showed mucous plugs/ thick secretions b/l, normal mucosa, no evidence of EBL, BAL performed RUL. Status post bronchoscopy 05/30 revealed no mucus plugging. Normal bronchial mucosa without lesions. No signs of bleeding. LEN negative Renal/: Nonoliguric acute kidney injury Rhabdo Likely secondary to ischemic ATN following cardiac arrest. Furosemide 40 mg IV every 8 hours Cr: 5.6 from 5.4 with UOP: 2339 ml in 24 hrs. Renal is following- Dr. Flannery abdomen: No hydronephrosis. Creatinine kinase downtrending 1030->357 GI: Elevated transaminases Hypoalbuminemia Hyperammonia Patient had 3 BM',Nepro @ 35ml/hr-no residuals Famotidine 20 mg by tube daily for GI prophylaxis written to switch to 10 mg twice daily by pharmacy Docusate/senna 1 tablet twice daily, polyethylene glycol 17 g twice daily and lactulose 30 cc twice daily for bowel regimen. Monitor LFT's (trending down),Hep profile is negative Abdominal ultrasound 05/31 -market hepatic congestion. Contracted gallbladder with pericholecystic fluid. Possible acalculous cholecystitis recommend HIDA scan if clinically able. US abdomen: Gall bladder wall thickening and possible pericholecystic fluid without evidence of gallstones. Recommend HIDA scan if clinically indicated Lactulose 30 cc 4 times daily. 06/05 ammonia level 17 GI following Heme: Persistent Leukocytosis Microcytic anemia Monitor CBC VQ scan negative 05/23 BLE u/s negative for DVT 05/23 WBC 16.9->20 ID: MSSA pneumonia Bandemia On ceftriaxone 05/25-12 Previously on Zosyn 05/23-05/25. Abx day #10 for MSSA in sputum. Continued on Zosyn, Vanc discontinued Monitor for signs of infections ( Fever, WBC) ID is following- Bands 5%->8% Pertinent: 06/01 -sputum -pending 05/31/13 -blood cultures 2 -pending 05/30 -bronchoscopy -no growth 05/30 -sputum -rare WBC/budding yeast 05/30 -blood cultures 2 -pending 05/25 -blood cultures 2 -no growth to date 05/25 -urine culture -no growth to date 05/23 -sputum -MSSA 05/23 -blood cultures 2 -no growth to date Endo: Currently on sliding scale insulin NovUlin R medium regimen every 6 hours sliding scale. TSH 2.3 MSK: Elevated BMI Weight loss encouraged PROPH: SCDs /Heparin subcut q 12 hours for DVT prophylaxis. (Previous butcherette documented discussion with Dr. Guzman who would be amenable to anticoagulation if felt to be indicated for stroke, Dr. Espinosa states currently recommends ASA at this time. ). ACCESS R IJ CVL 05/23- 05/31 Left IJ CVL placed 05/31 Radial arterial line placed 05/31 by respiratory therapy Critical Care: my billing statement This patient remains critically ill with one or more organ systems which are or may become a threat to life. I have spent in excess of 30 minutes discontinuously in the care and management of this patient. This time is exclusive of procedures, and includes, but is not limited to, evaluation of the patient, review of the medical record, discussions with family, consultants, nursing staff, or respiratory therapy, and documentation in the medical record. Physician Yanely Paul MD Jun 05, 2017 10:29
[2017-06-05] MEDS ORDERED: POTASSIUM BICARBONATE 25 MEQ EFFERVESCENT TAB PO ONE (10:30)
--- NOTE | 2017-06-05 10:50 | HHI.NPPN ---
Subjective History of Present Illness 36 year old with Aortic dissection ARF Additional Remarks Patient remains intubated Objective Data Data Vital Signs Date Time Temp Pulse Resp B/P (MAP) Pulse Ox O2 Delivery O2 Flow Rate FiO2 06/05/17 08:00 97 55 06/05/17 04:00 55 06/05/17 03:59 95 55 06/05/17 03:00 55 06/05/17 03:00 97.9 55 16 115/85 (95) 98 147/80 (102) 06/05/17 03:00 98 Mechanical Ventilator 55 06/05/17 02:30 96 55 06/05/17 01:55 97 55 06/05/17 00:00 55 06/04/17 23:00 59 06/04/17 23:00 98.6 59 16 146/77 (100) 94 142/77 (98) 06/04/17 23:00 94 Mechanical Ventilator 55 06/04/17 22:00 96 55 06/04/17 20:58 93 55 06/04/17 20:00 55 06/04/17 19:00 59 06/04/17 19:00 92 Mechanical Ventilator 55 06/04/17 19:00 98.3 59 16 131/69 (89) 92 129/73 (91) 06/04/17 16:00 65 06/04/17 15:54 91 55 06/04/17 15:04 97.6 62 18 125/68 (87) 96 129/66 (87) 06/04/17 15:04 Mechanical Ventilator 65 06/04/17 15:04 62 06/04/17 12:24 97 55 06/04/17 12:17 57 06/04/17 12:17 97.7 58 18 116/60 (78) 96 110/55 (73) 06/04/17 12:17 Mechanical Ventilator 65 06/04/17 12:17 65 -: 06/05/17 0517 06/05/17 0517 Physical Exam General Appearance: Well Developed Eyes Eye Exam: Pupils Equal Neck Neck Exam: Neck Supple Pulmonary Resp Exam: Clear Bilaterally Cardiology CV Exam: Regular, Normal Sinus Rhythm Gastrointestinal/Abdomen GI Exam: Soft, Non-Tender Genitourinary Exam: Clear Urine Integumentary Skin Exam: Intact Extremeties Extremities Exam: Moderate Edema, Pitting Edema, Dependent Edema Assessment/Plan Problem List: (1) Acute renal failure ICD Codes: N17.9 - Acute kidney failure, unspecified Plan: He has large dissection of aorta continue to monitor he is passing urine , creatinine he did receive IV contrast repeat CTA Dissection up to Common Iliac arteries seen with true and false lumen perfused Cr 5.6-> 5.7 -> 5.7 non oliguric, on Lasix 40 mg IV q 8: 4L UOP/24 hours Increasing BUN, increasing Na - possible mild overdiuresis.. Will decrease lasix to 40mg IV q12. Patient has good urine out. Potassium being replaced again today. CK improving Inc LFT Ongoing azotemia; however good UOP. Potassium low/stable Ongoing UOP is encouraging, continue to monitor. No urgency for HD initiation - continue to closely monitor. (2) Dissection of aorta, thoracoabdominal ICD Codes: I71.03 - Dissection of thoracoabdominal aorta Status: Acute Plan: vascular is following Renal arteries remains perfused Syed Jiménez MD Jun 05, 2017 10:50
--- NOTE | 2017-06-05 11:37 | HHI.GIFU ---
Subjective Remarks + BM, tolerating TF. less distended and is softer today (Addie Springer BULK CLERK) Objective Vitals I&O Vital Signs Date Time Temp Pulse Resp B/P (MAP) Pulse Ox O2 Delivery O2 Flow Rate FiO2 06/05/17 08:00 97 55 06/05/17 04:00 55 06/05/17 03:59 95 55 06/05/17 03:00 55 06/05/17 03:00 97.9 55 16 115/85 (95) 98 147/80 (102) 06/05/17 03:00 98 Mechanical Ventilator 55 06/05/17 02:30 96 55 06/05/17 01:55 97 55 06/05/17 00:00 55 06/04/17 23:00 59 06/04/17 23:00 98.6 59 16 146/77 (100) 94 142/77 (98) 06/04/17 23:00 94 Mechanical Ventilator 55 06/04/17 22:00 96 55 06/04/17 20:58 93 55 06/04/17 20:00 55 06/04/17 19:00 59 06/04/17 19:00 92 Mechanical Ventilator 55 06/04/17 19:00 98.3 59 16 131/69 (89) 92 129/73 (91) 06/04/17 16:00 65 06/04/17 15:54 91 55 06/04/17 15:04 97.6 62 18 125/68 (87) 96 129/66 (87) 06/04/17 15:04 Mechanical Ventilator 65 06/04/17 15:04 62 06/04/17 12:24 97 55 06/04/17 12:17 57 06/04/17 12:17 97.7 58 18 116/60 (78) 96 110/55 (73) 06/04/17 12:17 Mechanical Ventilator 65 06/04/17 12:17 65 I/O 06/04/1718 06/04/17 06/05/17 06/05/17 06/05/17 07:00 15:00 23:00 07:00 15:00 23:00 Intake Total 864 ml 327 ml 573.7 ml 780 ml Output Total 2350 ml 1660 ml 2400 ml Balance -1486 ml 327 ml -1086.3 ml -1620 ml Intake Oral 0 ml IV Total 650 ml 327 ml 222.7 ml 250 ml Tube Feeding 214 ml 351 ml 430 ml Tube Irrigant 100 ml Output Urine Total 2350 ml 1660 ml 2400 ml # Bowel Movements 1 1 1 Laboratory Laboratory Tests Test 06/05/17 05:17 06/05/17 06:03 06/05/17 06:32 White Blood Count 18.4 Red Blood Count 3.62 Hemoglobin 9.3 Hematocrit 28.6 Mean Corpuscular Volume 79.1 Mean Corpuscular Hemoglobin 25.8 Mean Corpuscular Hemoglobin Concent 32.6 Red Cell Distribution Width 16.2 Platelet Count 354 Mean Platelet Volume 9.0 Neutrophils (%) (Auto) 85.3 Lymphocytes (%) (Auto) 8.3 Monocytes (%) (Auto) 5.9 Eosinophils (%) (Auto) 0.1 Basophils (%) (Auto) 0.4 Neutrophils # (Auto) 15.7 Lymphocytes # (Auto) 1.5 Monocytes # (Auto) 1.1 Eosinophils # (Auto) 0.0 Basophils # (Auto) 0.1 CBC Comment AUTO DIFF Differential Total Cells Counted 100 Neutrophils % (Manual) 85 Band Neutrophils % 8 Lymphocytes % 5 Monocytes % 1 Neutrophils # (Manual) 17.3 Myelocytes 1 Nucleated Red Blood Cells 3 Differential Comment FINAL DIFF MANUAL Platelet Estimate NORMAL Platelet Morphology Comment ENLARGED Crenated Cell 1+ Blood Urea Nitrogen 90 Creatinine 5.70 Random Glucose 146 Total Protein 7.2 Albumin 1.8 Calcium Level 8.8 Phosphorus Level 3.4 Magnesium Level 2.1 Alkaline Phosphatase 121 Aspartate Amino Transf (AST/SGOT) 230 Alanine Aminotransferase (ALT/SGPT) 718 Total Bilirubin 1.1 Direct Bilirubin 0.7 Sodium Level 147 Potassium Level 2.8 Chloride Level 108 Carbon Dioxide Level 26.9 Anion Gap 12 Estimat Glomerular Filtration Rate 14 Total Creatine Kinase 357 Creatine Kinase MB LESS THAN 0.5 Creatine Kinase MB % 0.1 Blood Gas Puncture Site LT RADIAL Blood Gas Patient Temperature 98.6 Blood Gas HCO3 27 Blood Gas Base Excess 3.1 Blood Gas Oxygen Saturation 95 Arterial Blood pH 7.46 Arterial Blood Partial Pressure CO2 39 Arterial Blood Partial Pressure O2 91 Arterial Blood Oxygen Content 12.7 Arterial Blood Carboxyhemoglobin 0.9 Arterial Blood Methemoglobin 0.8 Blood Gas Hemoglobin 9.4 Oxygen Delivery Device VENTILATOR Blood Gas Ventilator Setting PC/AC Blood Gas Inspired Oxygen 55 Ammonia 17 Date/Time Source Procedure Growth Status 06/01/17 00:02 Blood Peripheral Aerobic Blood Culture - Preliminary NO GROWTH IN 4 DAYS Resulted 06/01/17 00:02 Blood Peripheral Anaerobic Blood Culture - Final QNS - SEE AEROBE REPORT Resulted 06/04/17 10:48 Sputum Nasal Tracheal Aspirate Gram Stain - Final Resulted 06/04/17 10:48 Sputum Nasal Tracheal Aspirate Sputum Culture Pending Resulted 05/25/17 12:30 Urine Catheterized Urine Urine Culture - Final NO GROWTH IN 48 HOURS. Complete Imaging Last Impressions Chest X-Ray 06/04/17 0600 Signed Impressions: Service Date/Time: Sunday, June 04, 2017 07:42 - CONCLUSION: Given the degree of hypoinflation the overall lung exam remains stable. The endotracheal tube is positioned 1 cm above the level of the clavicles. Lori Villasenor MD Abdomen X-Ray 06/02/17 0000 Signed Impressions: Service Date/Time: May 10:18 - CONCLUSION: NG tip in stomach. Left basilar airspace disease. Elevated right hemidiaphragm. Bowel gas pattern demonstrates mild ileus Tc Varghese MD Liver Ultrasound 05/31/17 1434 Signed Impressions: Service Date/Time: Wednesday, May 31, 2017 14:40 - CONCLUSION: 1. Interval apparent hepatomegaly with diffusely increased hepatic echogenicity. Given the acuity of findings, findings may reflect acute hepatitis or congestive hepatopathy. 2. Persistently contracted gallbladder which accentuates the gallbladder wall with persistent gallbladder wall thickening and trace pericholecystic fluid. These findings are commonly seen in the setting of liver disease although differential considerations include acalculous cholecystitis. HIDA scan may be performed for better evaluation as clinically appropriate. 3. Andrew Kraft MD Lung Scan-V Nuclear Medicine 05/23/17 0000 Signed Impressions: Service Date/Time: Tuesday, May 23, 2017 10:22 - CONCLUSION: Low probability of pulmonary embolism. Buddy Harrison MD FACR Lower Extremity Ultrasound 05/23/17 0000 Signed Impressions: Service Date/Time: Tuesday, May 23, 2017 08:02 - CONCLUSION: Negative for deep venous thrombosis. Buddy Harrison MD FACR Head CT 05/23/17 0000 Signed Impressions: Service Date/Time: Tuesday, May 23, 2017 03:56 - CONCLUSION: 1. Examination quality is degraded by motion artifact. 2. No definite acute finding is identified. There is a 3 mm punctate area of high density in the left frontal periventricular white matter. This could represent small focus of acute blood products. Suggest attention to this on followup imaging. Wiliam Buck MD Brain MRI 05/23/17 0000 Signed Impressions: Service Date/Time: Tuesday, May 23, 2017 15:59 - CONCLUSION: 1. 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 2. No hemorrhage observe. 3. Pansinus disease. Rudy Cervantes Jr., MD Aorta CTA 05/23/17 0000 Signed Impressions: Service Date/Time: Tuesday, May 23, 2017 03:58 - CONCLUSION: 1. 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 The dissection extends to the abdominal aorta and terminates in the common iliac arteries bilaterally. The abdominal vessels arise from both the true and false lumens and demonstrate good opacification. Suggest correlating with the patient's prior imaging study which documents the dissection. 2. 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 3. There is stranding of the periaortic fat adjacent to the arch aneurysm. 4. There are small bilateral pleural effusions, left larger than right, with bilateral volume loss and/or airspace consolidation bilaterally. Wiliam Buck MD Abdomen Ultrasound 05/23/17 0000 Signed Impressions: Service Date/Time: Tuesday, May 23, 2017 17:22 - CONCLUSION: 1. Gall bladder wall thickening and possible pericholecystic fluid without evidence of gallstones. May consider perform hepatic biliary tract scan to evaluate for acalculous cholecystitis. 2. No focal abnormality seen within the liver. Rudy Pollock MD Physical Exam HEENT: Normocephalic; atraumatic; no jaundice. intubated CHEST: coarse CARDIAC: RRR ABDOMEN: mildly distended, soft, BS active EXTREMITIES: No clubbing, cyanosis, + edema. 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 LFTs were WNL on day of admission and have been trending up with sudden large increase today. US 05/23 showed GB wall t hickening and poss pericholecystic fluid, no stones. repeat US is pending. hepatitis panel neg. - bilat embolic CVA, HTN emergency, aortic dissection, PEA 05/23/17 2/2 COIR, per CCM 06/01/17 worsening creatinine. now with mild ileus per KUB. NGT to LIWS. US liver showed hepatomegaly, acute hepatitis vs congestion, liver dz vs cholecystitis. NH elevated 158 -- ?lactulose enemas?. hep panel negative, rest of liver w/u pending would give reglan for ileus but creatinine worsening., (06/02) --> Pt remains sedated and mechanically ventilated. LFTs trending down- ? etiology shocked liver vs medication vs congestive hepatomegaly Hepatitis panel negative. LEN and ASMA negative. AMA pending. Alpha-1 antitrypsin-487 Ceruloplasmin pending. AFP-2. Ammonia-42 [id number]. Liver US --> Interval apparent hepatomegaly with diffusely increased hepatic echogenicity. May reflect acute hepatitis vs hepatopathy. KUB (06/02) --> Bowel gas pattern demonstrates mild ileus. Pt still with NGT to LI. 06/03/17 mult liquid stools. liver w/u so far unremarkable. elevated triglycerides ?shock liver 06/05/07, mild soft bowel sounds, tolerating Nepro feedings at 35 cc an hour. Abdomen large, taut, ileus appears to be resolving based on symptoms LEN negative, anti-smooth muscle negative 06/05/17 ileus improving, + BM, tolerating TF. liver w/u unremarkable thus far , AMA still pending likely shock liver PLAN - await AMA - lactulose - continue supportive care - GI will sign off. please reconsult if needed Pt has been seen and examined by myself and Dr. Martin and this note is written on his behalf (Addie Springer) Physician Comments Agree with the plan as above. Please notify us if needed again. (Andressa Martin MD) Addie Springer Jun 05, 2017 11:37 Andressa Martin MD Jun 05, 2017 13:16
[2017-06-05] MEDS: CEFEPIME INJ 2,000 MG in SODIUM CHLORIDE 0.9% INJ 100 ML IV SCH (16:48)
[2017-06-05] MEDS ORDERED: EPOPROSTENOL NEB SOLUTION 40 NG/KG/MIN 100 ML NEB SCH ×2 (18:00)
[2017-06-05 23:52] LABS: MITOCHONDRIAL ABS LESS THAN 20.0 U (<=20.0)
[2017-06-06] VITALS (17 sets, daily range): BP systolic 116–156; BP diastolic 59–93; PULSE 55–81; RESP 16–17; TEMP 97.7–98.6; O2SAT 90–98
[2017-06-06] MEDS: RESP: ACETYLCYSTEINE 10% 30 ML NEB NEB SCH ×6 (00:20→20:21)
[2017-06-06] MEDS: RESP: ALBUTEROL 2.5 MG/IPRATROPIUM 0.5 MG NEB (SCH) NEB ×6 (00:22→20:20)
[2017-06-06] MEDS: INSULIN NovoLIN REGULAR SUPPLEMENTAL SCALE SQ SCH ×4 (00:36→17:48)
[2017-06-06] MEDS: hydrALAZINE HCL 20 MG/ML VIAL IV PUSH PRN ×2 (00:39→16:41)
[2017-06-06] MEDS ORDERED: EPOPROSTENOL NEB SOLUTION 30 NG/KG/MIN 100 ML NEB SCH ×2 (02:00)
[2017-06-06] MEDS: POTASSIUM CHLOR 40 MEQ PREMIX 100 ML IV SCH ×2 (03:52→05:46)
[2017-06-06] MEDS: CHLORHEXIDINE GLUCONATE 2 % 1 PACK (2 CLOTHS) TOP SCH (04:00)
[2017-06-06] MEDS: MIDAZOLAM 100 MG/100 ML INJ 100 ML IV PRN ×2 (04:39→15:11)
[2017-06-06] MEDS: ARTIFICIAL TEARS OPTH SOLN 15 ML BTL EACH EYE SCH ×3 (04:46→22:42)
[2017-06-06] MEDS: fentaNYL DRIP 250 ML IV PRN ×2 (04:46→15:49)
[2017-06-06] MEDS: methylPREDNISolone SOD SUCC 40 MG/1 ML VIAL IV PUSH SCH ×3 (04:46→22:42)
[2017-06-06] MEDS: cloNIDine HCL 0.1 MG TAB PO SCH ×3 (04:47→22:42)
[2017-06-06] MEDS: LACTULOSE SYRUP 20 GM/30 ML CUP OG-TUBE SCH ×4 (04:48→17:47)
[2017-06-06] MEDS: DILTIAZEM HCL 90 MG TAB PO SCH ×5 (04:48→23:43)
--- NOTE | 2017-06-06 06:36 | RADRPT ---
EXAM DATE/TIME: 06/06/2017 05:42 [facility] COMPARISON: CHEST SINGLE AP, June 05, 2017, 4:58. INDICATIONS : Shortness of breath, possible pulmonary disease. MEDICAL HISTORY : Hypertension. Aortic dissection SURGICAL HISTORY : None. ENCOUNTER: Subsequent ACUITY: 2 weeks PAIN SCORE: Non-responsive. LOCATION: Bilateral chest FINDINGS: ET tube tip well above the julee. Gastric tube is in the stomach. Left internal jugular catheter t ip projects of the origin of the superior vena cava. Improving left lower lung infiltrate with some residual patchy areas. The right lung is clear. CONCLUSION: Improving but persistent left lower lobe infiltrate. Rudy Pollock MD on June 06, 2017 at 6:33 Board Certified Radiologist. This report was verified electronically.
[2017-06-06] MEDS: CHLORHEXIDINE 0.12% (ORAL KIT) 15 ML CUP MT SCH ×2 (08:43→20:41)
[2017-06-06] MEDS: FAMOTIDINE 20 MG/2 ML VIAL IV PUSH SCH ×2 (09:00→20:42)
[2017-06-06] MEDS: POLYETHYLENE GLYCOL 17 GM PKG NG SCH ×2 (09:00→20:41)
[2017-06-06] MEDS: ASPIRIN 81 MG CHEW TAB CHEW SCH (09:01)
[2017-06-06] MEDS: DOCUSATE SODIUM 50 MG/SENNA 8.6 MG TAB PO SCH ×2 (09:01→20:42)
[2017-06-06] MEDS: FUROSEMIDE 40 MG/4 ML VIAL IV PUSH SCH ×2 (09:01→20:42)
[2017-06-06] MEDS: CARVEDILOL 12.5 MG TAB PO SCH ×2 (09:01→20:42)
[2017-06-06] MEDS: HEPARIN SODIUM - SQ 10,000 UNITS/ML VIAL SQ SCH ×2 (09:02→20:42)
[2017-06-06] MEDS: SODIUM CHLORIDE 0.9% FLUSH 10 ML FLUSH IV FLUSH SCH (09:02)
[2017-06-06] MEDS ORDERED: EPOPROSTENOL NEB SOLUTION 20 NG/KG/MIN 100 ML NEB SCH ×2 (10:00)
[2017-06-06 10:49] LABS: BASOPHIL % 0.3 % (0.0-2.0); EOSINOPHIL % 0.1 % (0.0-4.0); HEMATOCRIT 29.2 % (39.0-51.0); HEMOGLOBIN 9.6 GM/DL (13.0-17.0); LYMPH % 10.5 % (9.0-44.0); LYMPHOCYTE # 1.4 TH/MM3 (1.0-4.8); MEAN CELL VOLUME 79.5 FL (80.0-100.0); MEAN CORPUSCULAR HEMOGLOBIN 26.2 PG (27.0-34.0); MEAN CORPUSCULAR HGB CONC 32.9 % (32.0-36.0); MEAN PLATELET VOLUME 9.2 FL (7.0-11.0); MONO % 9.8 % (0.0-8.0); MONOCYTE # 1.4 TH/MM3 (0-0.9); NEUT % 79.3 % (16.0-70.0); PLATELET COUNT 354 TH/MM3 (150-450); RED BLOOD COUNT 3.67 MIL/MM3 (4.50-5.90); RED CELL DISTRIBUTION WIDTH 16.6 % (11.6-17.2); WHITE BLOOD COUNT 13.8 TH/MM3 (4.0-11.0)
[2017-06-06 10:53] LABS: BICARBONATE 30.7 MEQ/L (21.0-32.0); CALCIUM 8.7 MG/DL (8.5-10.1); CREATININE 5.32 MG/DL (0.60-1.30); MAGNESIUM 2.2 MG/DL (1.5-2.5); PHOSPHORUS 4.1 MG/DL (2.5-4.9)
[2017-06-06 11:44] LABS: BANDS 5 % (0-6); CORRECTED NUCLEATED RBC 1 /100 WBC (0-0); LYMPHOCYTES 7 % (9-44); METAMYELOCYTES 3 % (0-1); MONOCYTES 11 % (0-8); NEUTROPHIL # MANUAL DIFF 11.3 TH/MM3 (1.8-7.7); NUCLEATED RED BLOOD CELL 1 (0-0); POLYS (SEG NEUTROPHILS) 74 % (16-70)
[2017-06-06] MEDS ORDERED: POTASSIUM CHLORIDE 25 MEQ EFFERVESCENT TAB OG-TUBE ONE (12:30)
--- NOTE | 2017-06-06 13:34 | HHI.IDPN ---
Subjective Subjective Remarks FiO2 up to 70%, PEEP down to 12 Off paralytics, but requires heavy sedation afebrile WBC down clx remain negative creatinine very slightly improved Antibiotics cefepime Allergies: Coded Allergies: No Known Allergies (Unverified , 05/19/17) Objective . Vital Signs Date Time Temp Pulse Resp B/P (MAP) Pulse Ox O2 Delivery O2 Flow Rate FiO2 06/06/17 12:33 93 65 06/06/17 12:08 90 60 06/06/17 12:00 65 06/06/17 11:00 98.3 68 16 135/63 (87) 91 149/80 (103) 06/06/17 11:00 68 06/06/17 11:00 91 Mechanical Ventilator 50 06/06/17 10:04 95 50 06/06/17 08:01 90 50 06/06/17 08:00 50 06/06/17 07:00 94 Mechanical Ventilator 50 06/06/17 07:00 98.2 56 17 124/59 (80) 94 139/71 (93) 06/06/17 07:00 56 06/06/17 04:05 97 50 06/06/17 04:00 97 Mechanical Ventilator 50 06/06/17 04:00 98.2 70 16 116/60 (78) 97 134/64 (87) 06/06/17 04:00 50 06/06/17 03:30 65 06/06/17 01:00 55 06/06/17 01:00 97 Mechanical Ventilator 55 06/06/17 00:55 98 55 06/06/17 00:00 56 06/06/17 00:00 65 06/06/17 00:00 97.7 55 16 122/93 (103) 97 156/82 (106) 06/06/17 00:00 97 Mechanical Ventilator 65 06/05/17 22:44 98 60 06/05/17 20:00 93 Mechanical Ventilator 65 06/05/17 20:00 97.6 57 16 138/80 (99) 93 143/80 (101) 06/05/17 20:00 65 06/05/17 19:48 94 65 06/05/17 19:00 59 06/05/17 16:21 97 55 06/05/17 16:00 55 06/05/17 15:00 60 06/05/17 15:00 97.6 60 16 129/75 (93) 93 141/75 (97) 06/05/17 15:00 93 Mechanical Ventilator 55 . Laboratory Tests Test 06/05/17 05:17 06/06/17 10:05 White Blood Count 18.4 TH/MM3 13.8 TH/MM3 Red Blood Count 3.62 MIL/MM3 3.67 MIL/MM3 Hemoglobin 9.3 GM/DL 9.6 GM/DL Hematocrit 28.6 % 29.2 % Mean Corpuscular Volume 79.1 FL 79.5 FL Mean Corpuscular Hemoglobin 25.8 PG 26.2 PG Mean Corpuscular Hemoglobin Concent 32.6 % 32.9 % Red Cell Distribution Width 16.2 % 16.6 % Platelet Count 354 TH/MM3 354 TH/MM3 Mean Platelet Volume 9.0 FL 9.2 FL Neutrophils (%) (Auto) 85.3 % 79.3 % Lymphocytes (%) (Auto) 8.3 % 10.5 % Monocytes (%) (Auto) 5.9 % 9.8 % Eosinophils (%) (Auto) 0.1 % 0.1 % Basophils (%) (Auto) 0.4 % 0.3 % Neutrophils # (Auto) 15.7 TH/MM3 11.0 TH/MM3 Lymphocytes # (Auto) 1.5 TH/MM3 1.4 TH/MM3 Monocytes # (Auto) 1.1 TH/MM3 1.4 TH/MM3 Eosinophils # (Auto) 0.0 TH/MM3 0.0 TH/MM3 Basophils # (Auto) 0.1 TH/MM3 0.0 TH/MM3 CBC Comment AUTO DIFF AUTO DIFF Differential Total Cells Counted 100 100 Neutrophils % (Manual) 85 % 74 % Band Neutrophils % 8 % 5 % Lymphocytes % 5 % 7 % Monocytes % 1 % 11 % Neutrophils # (Manual) 17.3 TH/MM3 11.3 TH/MM3 Myelocytes 1 % Nucleated Red Blood Cells 3 /100 WBC 1 /100 WBC Differential Comment FINAL DIFF MANUAL FINAL DIFF MANUAL Platelet Estimate NORMAL NORMAL Platelet Morphology Comment ENLARGED NORMAL Crenated Cell 1+ Metamyelocytes 3 % Laboratory Tests Test 06/05/17 05:17 06/05/17 06:32 06/05/17 14:30 06/05/17 21:00 Blood Urea Nitrogen 90 MG/DL Creatinine 5.70 MG/DL Random Glucose 146 MG/DL Total Protein 7.2 GM/DL Albumin 1.8 GM/DL Calcium Level 8.8 MG/DL Phosphorus Level 3.4 MG/DL Magnesium Level 2.1 MG/DL Alkaline Phosphatase 121 U/L Aspartate Amino Transf (AST/SGOT) 230 U/L Alanine Aminotransferase (ALT/SGPT) 718 U/L Total Bilirubin 1.1 MG/DL Direct Bilirubin 0.7 MG/DL Sodium Level 147 MEQ/L Potassium Level 2.8 MEQ/L 3.0 MEQ/L 3.2 MEQ/L Chloride Level 108 MEQ/L Carbon Dioxide Level 26.9 MEQ/L Anion Gap 12 MEQ/L Estimat Glomerular Filtration Rate 14 ML/MIN Total Creatine Kinase 357 U/L Creatine Kinase MB LESS THAN 0.5 NG/ML Creatine Kinase MB % 0.1 % Ammonia 17 MCMOL/L Test 06/06/17 10:05 Blood Urea Nitrogen 104 MG/DL Creatinine 5.32 MG/DL Random Glucose 160 MG/DL Calcium Level 8.7 MG/DL Phosphorus Level 4.1 MG/DL Magnesium Level 2.2 MG/DL Sodium Level 148 MEQ/L Potassium Level 3.3 MEQ/L Chloride Level 108 MEQ/L Carbon Dioxide Level 30.7 MEQ/L Anion Gap 9 MEQ/L Estimat Glomerular Filtration Rate 15 ML/MIN Total Creatine Kinase 157 U/L Microbiology Date/Time Source Procedure Growth Status 06/04/17 10:48 Sputum Nasal Tracheal Aspirate Gram Stain - Final Complete 06/04/17 10:48 Sputum Nasal Tracheal Aspirate Sputum Culture - Final HEAVY GROWTH NORMAL RESPIRATORY FARIDA Complete Imaging Last Impressions Chest X-Ray 06/06/17 0600 Signed Impressions: Service Date/Time: Tuesday, June 06, 2017 05:42 - CONCLUSION: Improving but persistent left lower lobe infiltrate. Rudy Pollock MD Abdomen X-Ray 06/02/17 0000 Signed Impressions: Service Date/Time: May 10:18 - CONCLUSION: NG tip in stomach. Left basilar airspace disease. Elevated right hemidiaphragm. Bowel gas pattern demonstrates mild ileus Tc Varghese MD Liver Ultrasound 05/31/17 1434 Signed Impressions: Service Date/Time: Wednesday, May 31, 2017 14:40 - CONCLUSION: 1. Interval apparent hepatomegaly with diffusely increased hepatic echogenicity. Given the acuity of findings, findings may reflect acute hepatitis or congestive hepatopathy. 2. Persistently contracted gallbladder which accentuates the gallbladder wall with persistent gallbladder wall thickening and trace pericholecystic fluid. These findings are commonly seen in the setting of liver disease although differential considerations include acalculous cholecystitis. HIDA scan may be performed for better evaluation as clinically appropriate. 3. Andrew Kraft MD Lung Scan-[facility] Nuclear Medicine 05/23/17 Signed Impressions: Service Date/Time: Tuesday, May 23, 2017 10:22 - CONCLUSION: Low probability of pulmonary embolism. Buddy Harrison MD FACR Lower Extremity Ultrasound 05/23/17 Signed Impressions: Service Date/Time: Tuesday, May 23, 2017 08:02 - CONCLUSION: Negative for deep venous thrombosis. Buddy Harrison MD FACR Head CT 05/23/17 Signed Impressions: Service Date/Time: Tuesday, May 23, 2017 03:56 - CONCLUSION: 1. Examination quality is degraded by motion artifact. 2. No definite acute finding is identified. There is a 3 mm punctate area of high density in the left frontal periventricular white matter. This could represent small focus of acute blood products. Suggest attention to this on followup imaging. Wiliam Buck MD Brain MRI 05/23/17 Signed Impressions: Service Date/Time: Tuesday, May 23, 2017 15:59 - CONCLUSION: 1. 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 2. No hemorrhage observe. 3. Pansinus disease. Rudy Cervantes Jr., MD Aorta CTA 05/23/17 Signed Impressions: Service Date/Time: Tuesday, May 23, 2017 03:58 - CONCLUSION: 1. 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 The dissection extends to the abdominal aorta and terminates in the common iliac arteries bilaterally. The abdominal vessels arise from both the true and false lumens and demonstrate good opacification. Suggest correlating with the patient's prior imaging study which documents the dissection. 2. 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 3. There is stranding of the periaortic fat adjacent to the arch aneurysm. 4. There are small bilateral pleural effusions, left larger than right, with bilateral volume loss and/or airspace consolidation bilaterally. Wiliam Buck MD Abdomen Ultrasound 05/23/17 0000 Signed Impressions: Service Date/Time: Tuesday, May 23, 2017 17:22 - CONCLUSION: 1. Gall bladder wall thickening and possible pericholecystic fluid without evidence of gallstones. May consider perform hepatic biliary tract scan to evaluate for acalculous cholecystitis. 2. No focal abnormality seen within the liver. Rudy Pollock MD Physical Exam CONSTITUTIONAL/GENERAL: This is an adequately nourished patient, sedated int'd on vent TUBES/LINES/DRAINS: SKIN: No jaundice, rashes, or lesions. Skin temperature appropriate. Not diaphoretic. EYES: Pupils equal and round and reactive. Extraocular motions intact. No scleral icterus. No injection or drainage. Fundi not examined. ENT: Hearing not tested. Nose without bleeding or purulent drainage. Throat without visible erythema, exudates, masses, or lesions. NECK: Trachea midline. Supple, nontender. CARDIOVASCULAR: Regular rate and rhythm without murmurs, gallops, or rubs. No JVD. Peripheral pulses symmetric. RESPIRATORY/CHEST: Symmetric, unlabored respirations. few scattered rhonchi to auscultation. Breath sounds equal bilaterally. GASTROINTESTINAL: Abdomen soft, non-tender, nondistended. No hepato-splenomegaly , or palpable masses. No guarding. Bowel sounds present. GENITOURINARY: Without palpable bladder distension. Ledesma catheter in place with very light yellow urine MUSCULOSKELETAL: Extremities without clubbing, cyanosis, still promient edema, 3+ No mottling or clubbing. NEUROLOGICAL: sedated heavily, unrespomsive per RN moves all 4 extremeies spontaneously PSYCHIATRIC: unable to assess Assessment & Plan Remarks Type B AAA dissection PNA, clx negative, but BAL cw PNA, 24 K WBC growing budding yeast from BAL - doubt clin significance Acute VDRF - failure to wean Non oliguric ARF Fever -resolved Leukocytosis, bandemia - improving to some degree leukocytosis is probably 2/2 sterroids; wont expect bancdemis 2/2 it however bands are less Abx associated ileus , diarrhea - c.diff negative cont cefepime for now Discussed Condition With Nalini Bliss MD Jun 06, 2017 13:34
--- NOTE | 2017-06-06 14:19 | HHI.NPPN ---
Subjective History of Present Illness 36 year old with Aortic dissection ARF Additional Remarks Patient remains intubated Objective Data Data Vital Signs Date Time Temp Pulse Resp B/P (MAP) Pulse Ox O2 Delivery O2 Flow Rate FiO2 06/06/17 12:33 93 65 06/06/17 12:08 90 60 06/06/17 12:00 65 06/06/17 11:00 98.3 68 16 135/63 (87) 91 149/80 (103) 06/06/17 11:00 68 06/06/17 11:00 91 Mechanical Ventilator 50 06/06/17 10:04 95 50 06/06/17 08:01 90 50 06/06/17 08:00 50 06/06/17 07:00 94 Mechanical Ventilator 50 06/06/17 07:00 98.2 56 17 124/59 (80) 94 139/71 (93) 06/06/17 07:00 56 06/06/17 04:05 97 50 06/06/17 04:00 97 Mechanical Ventilator 50 06/06/17 04:00 98.2 70 16 116/60 (78) 97 134/64 (87) 06/06/17 04:00 50 06/06/17 03:30 65 06/06/17 01:00 55 06/06/17 01:00 97 Mechanical Ventilator 55 06/06/17 00:55 98 55 06/06/17 00:00 56 06/06/17 00:00 65 06/06/17 00:00 97.7 55 16 122/93 (103) 97 156/82 (106) 06/06/17 00:00 97 Mechanical Ventilator 65 06/05/17 22:44 98 60 06/05/17 20:00 93 Mechanical Ventilator 65 06/05/17 20:00 97.6 57 16 138/80 (99) 93 143/80 (101) 06/05/17 20:00 65 06/05/17 19:48 94 65 06/05/17 19:00 59 06/05/17 16:21 97 55 06/05/17 16:00 55 06/05/17 15:00 60 06/05/17 15:00 97.6 60 16 129/75 (93) 93 141/75 (97) 06/05/17 15:00 93 Mechanical Ventilator 55 -: 06/06/17 1005 06/06/17 1005 Physical Exam General Appearance: Well Developed Eyes Eye Exam: Pupils Equal Neck Neck Exam: Neck Supple Pulmonary Resp Exam: Clear Bilaterally Cardiology CV Exam: Regular, Normal Sinus Rhythm Gastrointestinal/Abdomen GI Exam: Soft, Non-Tender Genitourinary Exam: Clear Urine Integumentary Skin Exam: Intact Extremeties Extremities Exam: Moderate Edema, Pitting Edema, Dependent Edema Assessment/Plan Problem List: (1) Acute renal failure ICD Codes: N17.9 - Acute kidney failure, unspecified Plan: He has large dissection of aorta continue to monitor he is passing urine , creatinine he did receive IV contrast repeat CTA Dissection up to Common Iliac arteries seen with true and false lumen perfused Cr 5.6-> 5.7 -> 5.7 -> 5.3 non oliguric, on Lasix . Lasix to 40mg IV q12. Patient has good urine out. Potassium being replaced again today. CK improving Inc LFT Ongoing azotemia; however good UOP. Potassium low/stable Ongoing UOP is encouraging, continue to monitor. No urgency for HD initiation - continue to closely monitor. (2) Dissection of aorta, thoracoabdominal ICD Codes: I71.03 - Dissection of thoracoabdominal aorta Status: Acute Plan: vascular is following Renal arteries remains perfused Roz Flannery MD Jun 06, 2017 14:19
--- NOTE | 2017-06-06 16:08 | HHI.CCPN ---
Subjective Remarks/Hospital Course 05/19: Is a 36-year-old male with a history of hypertension who is on vacation from the [place] area who did not take his antihypertensives today because he is on vacation, and was having sexual intercourse when he had sudden onset of severe substernal radiating to the back chest pain earlier today. 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 He was emergently transferred to [facility] for further management. I evaluated the patient on arrival to the ICU by EVAC. Patient denies abdominal pain. Still endorses chest pain although this is improving. Patient denies any other symptoms. CT chest abdomen pelvis was reviewed and reviewed with myself and Dr. Guzman and does demonstrate a type B dissection. 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 Initial laboratory evidence demonstrates a lactate of 1.3, creatinine 1.2, normal LFTs. 05/20: On home C Pap. Urine output 30 cc/h currently. Remains on esmolol and labetalol drips. Remains drowsy though arousable. +4.4 L 05/21: Resting comfortably on nasal cannula. Awake and alert currently. Denies any shortness of breath or chest pain currently. 05/22: AAO x3, resting comfortably. 05/23 Patient went into PEA arrest early this morning now sedated with Diprivan and intubated. Off Esmolol drip. 05/24 Patient is sedated with Diprivan and intubated. On Labetolol drip. MRI brain yesterday showed multiple small infracts, no hemorrhage. 05/25 Patient remains intubated and sedated. T: 100.5 last night. Renal function is worsening with Cr: 3.6 from 3.4 and UOP: 2650ml in 24 hrs. 05/26 No events overnight. Sedated and intubated. Afebrile. Cr: 3.62 , UOP: 1950ml in 24 hrs 05/27 Patient was extubated yesterday placed on BIPAP overnight. Cr: 3.42 today , UOP: 1800 ml in 24 hrs 05/28 Extubated yesterday and per report was compliant with Bipap overnight Remains on esmolol drip 200 mcg/kg/min and SBP in 140s. ZULY, probable ATN non- oliguric however I>>0 with significant intake from MIVF as well as 180 mL/hr from esmolol drip. IVF d/c per nephrology and transitioning off esmolol to minimize fluid. Hugo now per my discussion with Dr. Thornton. He is tachypneic, obtained ABG with hypercapnea on simple mask. Placing On Bipap. at bedside requesting eventual transfer to [place], though she realized he is not stable for that yet. 05/29: Remains on BiPAP since 299 with increasing respiratory rates. Will attempt a more aggressive diuresis. We started on esmolol drip due to persistent tachycardia and unable to reach target blood pressure and heart rate requirements. At high risk for reintubation. 05/30: Remained hypotensive overnight. This a.m. desaturated, tachypneic requiring high percent on BiPAP hence intubated by radiology physician assistant. Will require bronchoscopy this afternoon. Continue with aggressive diuresis. Broad antibiotic coverage. Start tube feeding. The systolic blood pressure better controlled while intubated on propofol and fentanyl drips. 05/31: T-max 102.8. Currently 99.6. FiO2 down to 80%. The same noted elevated transaminases AST of 2674. ALT of 1590. Creatinine is increased to 3.07 to 4.36. +2 L past 24 hours. One bowel movement. Noted prior gallbladder wall thickening on previous ultrasound. We will repeat today Subjective 06/01: T-max 102.5. Currently 98.9. Desaturate overnight resolved currently FiO2 of 80%. 4500 cc urine output. Creatinine continues to rise currently 4.9. CPK currently 6165. We will discontinue propofol with hepatomegaly, rhabdomyolysis possibly indicative propofol infusion syndrome. 06/02 Patient remains intubated and sedated. On Fentanyl, Versed and Nimbex. T: 100.0 at midnight. On PC/AC with PEEP:15, FIO2 50% Renal function continue to decline with Cr: 5.40 from 4.91 and UOP: 2895 ml in 24 hrs 06/03 Patient remains intubated and sedated with Versed, Fentanyl drips. Remains on Nimbex and Flolan. Cr: 5.6 from 5.4 with UOP: 3790 ml in 24 hrs. 06/04:Afebrile. Overnight the patient had an episode of hypotension during the and all sedation was briefly discontinued, then resumed for ventilator synchrony. Clonidine dosage decreased. Patient continues on pressure control mode, and Flolan for adequate oxygenation. Creatinine noted to be 5.7 weight urine output 3220cc/24 hrs. 06/05: Afebrile. This x-ray revealed improving area aeration of the right hemithorax. PEEP decreased this a.m. to 12, patient continues on FiO2 55% and Flolan, planned weaning. Electrolytes currently being replaced. Elevated liver enzymes continue to down trend. 06/06: Respiratory requirements decreasing, patient now on Flolan 10 ng/kg/min with FiO2 at 60%, maintaining O2 saturation 92%. Running continues to down trend. Leukocytosis improving. Objective Vital Signs Date Time Temp Pulse Resp B/P (MAP) Pulse Ox O2 Delivery O2 Flow Rate FiO2 06/06/17 15:00 97 Mechanical Ventilator 65 06/06/17 15:00 63 06/06/17 15:00 98.1 16 155/79 (104) 142/75 (97) Intake and Output 06/06/17 06/06/17 06/07/17 08:00 16:00 00:00 Intake Total 929 ml Output Total 1700 ml Balance -771 ml Result Diagram: 06/06/17 1005 06/06/17 1005 Other Results Microbiology Date/Time Source Procedure Growth Status 06/04/17 10:48 Sputum Nasal Tracheal Aspirate Gram Stain - Final Complete 06/04/17 10:48 Sputum Nasal Tracheal Aspirate Sputum Culture - Final HEAVY GROWTH NORMAL RESPIRATORY FARIDA Complete Imaging Last Impressions Chest X-Ray 06/04/17 0600 Signed Impressions: Service Date/Time: Sunday, June 04, 2017 07:42 - CONCLUSION: Given the degree of hypoinflation the overall lung exam remains stable. The endotracheal tube is positioned 1 cm above the level of the clavicles. Lori Villasenor MD Abdomen X-Ray 06/02/17 0000 Signed Impressions: Service Date/Time: May 10:18 - CONCLUSION: NG tip in stomach. Left basilar airspace disease. Elevated right hemidiaphragm. Bowel gas pattern demonstrates mild ileus Tc Varghese MD Liver Ultrasound 05/31/17 1434 Signed Impressions: Service Date/Time: Wednesday, May 31, 2017 14:40 - CONCLUSION: 1. Interval apparent hepatomegaly with diffusely increased hepatic echogenicity. Given the acuity of findings, findings may reflect acute hepatitis or congestive hepatopathy. 2. Persistently contracted gallbladder which accentuates the gallbladder wall with persistent gallbladder wall thickening and trace pericholecystic fluid. These findings are commonly seen in the setting of liver disease although differential considerations include acalculous cholecystitis. HIDA scan may be performed for better evaluation as clinically appropriate. 3. Andrew Kraft MD Lung Scan-VQ Nuclear Medicine 05/23/17 0000 Signed Impressions: Service Date/Time: Tuesday, May 23, 2017 10:22 - CONCLUSION: Low probability of pulmonary embolism. Buddy Harrison MD FACR Lower Extremity Ultrasound 05/23/17 0000 Signed Impressions: Service Date/Time: Tuesday, May 23, 2017 08:02 - CONCLUSION: Negative for deep venous thrombosis. Buddy Harrison MD FACR Head CT 05/23/17 0000 Signed Impressions: Service Date/Time: Tuesday, May 23, 2017 03:56 - CONCLUSION: 1. Examination quality is degraded by motion artifact. 2. No definite acute finding is identified. There is a 3 mm punctate area of high density in the left frontal periventricular white matter. This could represent small focus of acute blood products. Suggest attention to this on followup imaging. Wiliam Buck MD Brain MRI 05/23/17 0000 Signed Impressions: Service Date/Time: Tuesday, May 23, 2017 15:59 - CONCLUSION: 1. 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 2. No hemorrhage observe. 3. Pansinus disease. Rudy Cervantes Jr., MD Aorta CTA 05/23/17 0000 Signed Impressions: Service Date/Time: Tuesday, May 23, 2017 03:58 - CONCLUSION: 1. 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 The dissection extends to the abdominal aorta and terminates in the common iliac arteries bilaterally. The abdominal vessels arise from both the true and false lumens and demonstrate good opacification. Suggest correlating with the patient's prior imaging study which documents the dissection. 2. 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 3. There is stranding of the periaortic fat adjacent to the arch aneurysm. 4. There are small bilateral pleural effusions, left larger than right, with bilateral volume loss and/or airspace consolidation bilaterally. Wiliam Buck MD Abdomen Ultrasound 05/23/17 0000 Signed Impressions: Service Date/Time: Tuesday, May 23, 2017 17:22 - CONCLUSION: 1. Gall bladder wall thickening and possible pericholecystic fluid without evidence of gallstones. May consider perform hepatic biliary tract scan to evaluate for acalculous cholecystitis. 2. No focal abnormality seen within the liver. Rudy Pollock MD Last Impressions Chest X-Ray 06/04/17 0600 Signed Impressions: Service Date/Time: Sunday, June 04, 2017 07:42 - CONCLUSION: Given the degree of hypoinflation the overall lung exam remains stable. The endotracheal tube is positioned 1 cm above the level of the clavicles. Lori Villasenor MD Abdomen X-Ray 06/02/17 0000 Signed Impressions: Service Date/Time: May 10:18 - CONCLUSION: NG tip in stomach. Left basilar airspace disease. Elevated right hemidiaphragm. Bowel gas pattern demonstrates mild ileus Tc Varghese MD Liver Ultrasound 05/31/17 1434 Signed Impressions: Service Date/Time: Wednesday, May 31, 2017 14:40 - CONCLUSION: 1. Interval apparent hepatomegaly with diffusely increased hepatic echogenicity. Given the acuity of findings, findings may reflect acute hepatitis or congestive hepatopathy. 2. Persistently contracted gallbladder which accentuates the gallbladder wall with persistent gallbladder wall thickening and trace pericholecystic fluid. These findings are commonly seen in the setting of liver disease although differential considerations include acalculous cholecystitis. HIDA scan may be performed for better evaluation as clinically appropriate. 3. Andrew Kraft MD Lung Scan-V Nuclear Medicine 05/23/17 0000 Signed Impressions: Service Date/Time: Tuesday, May 23, 2017 10:22 - CONCLUSION: Low probability of pulmonary embolism. Buddy Harrison MD FACR Lower Extremity Ultrasound 05/23/17 0000 Signed Impressions: Service Date/Time: Tuesday, May 23, 2017 08:02 - CONCLUSION: Negative for deep venous thrombosis. Buddy Harrison MD FACR Head CT 3/5/18 0000 Signed Impressions: Service Date/Time: Tuesday, May 23, 2017 03:56 - CONCLUSION: 1. Examination quality is degraded by motion artifact. 2. No definite acute finding is identified. There is a 3 mm punctate area of high density in the left frontal periventricular white matter. This could represent small focus of acute blood products. Suggest attention to this on followup imaging. Wiliam Buck MD Brain MRI 05/23/17 0000 Signed Impressions: Service Date/Time: Tuesday, May 23, 2017 15:59 - CONCLUSION: 1. 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 2. No hemorrhage observe. 3. Pansinus disease. Rudy Cervantes Jr., MD Aorta CTA 05/23/17 0000 Signed Impressions: Service Date/Time: Tuesday, May 23, 2017 03:58 - CONCLUSION: 1. 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 The dissection extends to the abdominal aorta and terminates in the common iliac arteries bilaterally. The abdominal vessels arise from both the true and false lumens and demonstrate good opacification. Suggest correlating with the patient's prior imaging study which documents the dissection. 2. 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 3. There is stranding of the periaortic fat adjacent to the arch aneurysm. 4. There are small bilateral pleural effusions, left larger than right, with bilateral volume loss and/or airspace consolidation bilaterally. Wiliam Buck MD Abdomen Ultrasound 05/23/17 0000 Signed Impressions: Service Date/Time: Tuesday, May 23, 2017 17:22 - CONCLUSION: 1. Gall bladder wall thickening and possible pericholecystic fluid without evidence of gallstones. May consider perform hepatic biliary tract scan to evaluate for acalculous cholecystitis. 2. No focal abnormality seen within the liver. Rudy Pollock MD Last Impressions Chest X-Ray 06/04/17 0600 Signed Impressions: Service Date/Time: Sunday, June 04, 2017 07:42 - CONCLUSION: Given the degree of hypoinflation the overall lung exam remains stable. The endotracheal tube is positioned 1 cm above the level of the clavicles. Lori Villasenor MD Abdomen X-Ray 06/02/17 0000 Signed Impressions: Service Date/Time: May 10:18 - CONCLUSION: NG tip in stomach. Left basilar airspace disease. Elevated right hemidiaphragm. Bowel gas pattern demonstrates mild ileus Tc Varghese MD Liver Ultrasound 05/31/17 1434 Signed Impressions: Service Date/Time: Wednesday, May 31, 2017 14:40 - CONCLUSION: 1. Interval apparent hepatomegaly with diffusely increased hepatic echogenicity. Given the acuity of findings, findings may reflect acute hepatitis or congestive hepatopathy. 2. Persistently contracted gallbladder which accentuates the gallbladder wall with persistent gallbladder wall thickening and trace pericholecystic fluid. These findings are commonly seen in the setting of liver disease although differential considerations include acalculous cholecystitis. HIDA scan may be performed for better evaluation as clinically appropriate. 3. Andrew Kraft MD Lung Scan-V Nuclear Medicine 05/23/17 0000 Signed Impressions: Service Date/Time: Tuesday, May 23, 2017 10:22 - CONCLUSION: Low probability of pulmonary embolism. Buddy Harrison MD FACR Lower Extremity Ultrasound 05/23/17 0000 Signed Impressions: Service Date/Time: Tuesday, May 23, 2017 08:02 - CONCLUSION: Negative for deep venous thrombosis. Buddy Harrison MD FACR Head CT 05/23/17 0000 Signed Impressions: Service Date/Time: Tuesday, May 23, 2017 03:56 - CONCLUSION: 1. Examination quality is degraded by motion artifact. 2. No definite acute finding is identified. There is a 3 mm punctate area of high density in the left frontal periventricular white matter. This could represent small focus of acute blood products. Suggest attention to this on followup imaging. Wiliam Buck MD Brain MRI 05/23/17 0000 Signed Impressions: Service Date/Time: Tuesday, May 23, 2017 15:59 - CONCLUSION: 1. 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 2. No hemorrhage observe. 3. Pansinus disease. Rudy Cervantes Jr., MD Aorta CTA 05/23/17 0000 Signed Impressions: Service Date/Time: Tuesday, May 23, 2017 03:58 - CONCLUSION: 1. 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 The dissection extends to the abdominal aorta and terminates in the common iliac arteries bilaterally. The abdominal vessels arise from both the true and false lumens and demonstrate good opacification. Suggest correlating with the patient's prior imaging study which documents the dissection. 2. 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 3. There is stranding of the periaortic fat adjacent to the arch aneurysm. 4. There are small bilateral pleural effusions, left larger than right, with bilateral volume loss and/or airspace consolidation bilaterally. Wiliam Buck MD Abdomen Ultrasound 05/23/17 0000 Signed Impressions: Service Date/Time: Tuesday, May 23, 2017 17:22 - CONCLUSION: 1. Gall bladder wall thickening and possible pericholecystic fluid without evidence of gallstones. May consider perform hepatic biliary tract scan to evaluate for acalculous cholecystitis. 2. No focal abnormality seen within the liver. Rudy Pollock MD Last Impressions Chest X-Ray 06/03/17 0600 Signed Impressions: Service Date/Time: Saturday, June 03, 2017 04:16 - CONCLUSION: 1. Interval complete opacification of the right upper lobe. 2. Stable left basilar consolidation/effusion and stable patchy airspace disease medially in the right lower lung field. 3. Stable position of life support tubes. Rodrigue Miller MD Abdomen X-Ray 06/02/17 0000 Signed Impressions: Service Date/Time: May 10:18 - CONCLUSION: NG tip in stomach. Left basilar airspace disease. Elevated right hemidiaphragm. Bowel gas pattern demonstrates mild ileus Tc Varghese MD Liver Ultrasound 05/31/17 1434 Signed Impressions: Service Date/Time: Wednesday, May 31, 2017 14:40 - CONCLUSION: 1. Interval apparent hepatomegaly with diffusely increased hepatic echogenicity. Given the acuity of findings, findings may reflect acute hepatitis or congestive hepatopathy. 2. Persistently contracted gallbladder which accentuates the gallbladder wall with persistent gallbladder wall thickening and trace pericholecystic fluid. These findings are commonly seen in the setting of liver disease although differential considerations include acalculous cholecystitis. HIDA scan may be performed for better evaluation as clinically appropriate. 3. Andrew Kraft MD Lung Scan-VQ Nuclear Medicine 05/23/17 0000 Signed Impressions: Service Date/Time: Tuesday, May 23, 2017 10:22 - CONCLUSION: Low probability of pulmonary embolism. Buddy Harrison MD FACR Lower Extremity Ultrasound 05/23/17 0000 Signed Impressions: Service Date/Time: Tuesday, May 23, 2017 08:02 - CONCLUSION: Negative for deep venous thrombosis. Buddy Harrison MD FACR Head CT 05/23/17 0000 Signed Impressions: Service Date/Time: Tuesday, May 23, 2017 03:56 - CONCLUSION: 1. Examination quality is degraded by motion artifact. 2. No definite acute finding is identified. There is a 3 mm punctate area of high density in the left frontal periventricular white matter. This could represent small focus of acute blood products. Suggest attention to this on followup imaging. Wiliam Buck MD Brain MRI 05/23/17 0000 Signed Impressions: Service Date/Time: Tuesday, May 23, 2017 15:59 - CONCLUSION: 1. 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 2. No hemorrhage observe. 3. Pansinus disease. Rudy Cervantes Jr., MD Aorta CTA 05/23/17 Signed Impressions: Service Date/Time: Tuesday, May 23, 2017 03:58 - CONCLUSION: 1. 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 The dissection extends to the abdominal aorta and terminates in the common iliac arteries bilaterally. The abdominal vessels arise from both the true and false lumens and demonstrate good opacification. Suggest correlating with the patient's prior imaging study which documents the dissection. 2. 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 3. There is stranding of the periaortic fat adjacent to the arch aneurysm. 4. There are small bilateral pleural effusions, left larger than right, with bilateral volume loss and/or airspace consolidation bilaterally. Wiliam Buck MD Abdomen Ultrasound 05/23/17 0000 Signed Impressions: Service Date/Time: Tuesday, May 23, 2017 17:22 - CONCLUSION: 1. Gall bladder wall thickening and possible pericholecystic fluid without evidence of gallstones. May consider perform hepatic biliary tract scan to evaluate for acalculous cholecystitis. 2. No focal abnormality seen within the liver. Rudy Pollock MD Objective Remarks GENERAL: This is a 36-year-old well-developed well-nourished AA male resting in bed orotracheally intubated, and sedated SKIN: Warm and dry, adequately perfused. HEAD: Normocephalic. EYES: Pupils 3 mm and reactive. No scleral icterus. No injection or drainage. NECK: Supple, trachea midline. No JVD or lymphadenopathy. Left IJ CVL is clean dry and intact CARDIOVASCULAR: Distant. RRR. S1, S2 no S4. Cannot appreciate murmurs, clicks , gallops or rubs RESPIRATORY: Coarse rhonchorous crackles noted throughout all lung [place] anterior-posterior bilaterally. No wheezing GASTROINTESTINAL: Abdomen soft, non-tender, nondistended. Hypoactive bowel sounds are appreciated MUSCULOSKELETAL: No cyanosis. Edema 2+ bilateral upper and lower extremities NEURO: Currently sedated on Versed and fentanyl drips. Positive gag and corneal reflex. Positive cough. 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 On Fentanyl, Versed infusion to maintain ventilator synchrony. Propofol discontinued 06/03. Nimbex discontinued 06/03 Goal of RASS -2 Daily sedation vacation when appropriate Acetaminophen 650 mg by tube every 6 hours as needed fever discontinued due to elevated transaminases Evaluated by neurology/Dr. Espinosa MRI brain 05/23 revealed bilateral frontal embolic CVA CT brain: There is a 3 mm punctate area of high density in the left frontal periventricular white matter. This could represent small focus of acute blood products. EEG : Mild diffuse encephalopathy, no seizure activity Continue aspirin 162 mg p.o. daily. Okayed with neurology. CV: Hypertensive emergency Acute type B aortic dissection Elevated troponin PEA cardiac arrest 05/23/17, secondary to obstructive sleep apnea/obesity hypoventilation syndrome with Bipap nonadherence. CTA stable. VQ scan negative . Hyperlipidemia Monitor HR and BP keep MAP>65mmHg Currently on carvedilol 25 mg twice daily Diltiazem 90 mg every 6 hours 06/04 Decreased Clonidine from 0.3 to 0.1 mg every 8 hours Repeat echo 05/23: EF 60-65%, no RWMA Evaluated by cardiology, Dr. Bhakta on 05/24 due to troponin elevation. He attributed elevated troponin to PEA arrest, hypoxia, renal insufficiency. No further ischemic workup planned at this time. 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 The dissection extends to the abdominal aorta and terminates in the common iliac arteries bilaterally. The abdominal vessels arise from both the true and false lumens and demonstrate good opacification. Vascular surgery is following- Dr. Guzman Puljak: Obstructive sleep apnea Obesity hypoventilation syndrome Acute hypercapnic respiratory failure intubated 05/30 Ventilator dependent respiratory failure PC/ACIP:25, IT:1.9, PEEP:12, FIO2 55%, decrease FIO2 as kell. Ventilator bundle Bronchodilators, Duoneb Q4, add Mucomyst nebs On Flolan nebs decreased to 10ng/kg/min FIO2 .60 Continue solumederol 60mg Q8hr V/Q scan: low prob PE CXR 06/05- improving area right hemothorax with persistent left basilar consolidation/effusion and stable patchy airspace disease s/p bronch today showed mucous plugs/ thick secretions b/l, normal mucosa, no evidence of EBL, BAL performed RUL. Status post bronchoscopy 05/30 revealed no mucus plugging. Normal bronchial mucosa without lesions. No signs of bleeding. LEN negative Renal/: Nonoliguric acute kidney injury Rhabdo Likely secondary to ischemic ATN following cardiac arrest. Furosemide 40 mg IV every 8 hours Cr: 5.7 from 5.3- UOP >4000cc/24 hrs Renal is following- Dr. Flannery US abdomen: No hydronephrosis. GI: Elevated transaminases Hypoalbuminemia Hyperammonia Patient had 3 BM',Nepro @ 35ml/hr-no residuals Famotidine 20 mg by tube daily for GI prophylaxis written to switch to 10 mg twice daily by pharmacy Docusate/senna 1 tablet twice daily, polyethylene glycol 17 g twice daily and lactulose 30 cc twice daily for bowel regimen. Monitor LFT's (trending down),Hep profile is negative Abdominal ultrasound 05/31 -market hepatic congestion. Contracted gallbladder with pericholecystic fluid. Possible acalculous cholecystitis recommend HIDA scan if clinically able. US abdomen: Gall bladder wall thickening and possible pericholecystic fluid without evidence of gallstones. Recommend HIDA scan if clinically indicated Lactulose 30 cc 4 times daily. 06/05 ammonia level 17 GI following Heme: Persistent Leukocytosis Microcytic anemia Monitor CBC VQ scan negative 05/23 BLE u/s negative for DVT 05/23 WBC 18->13 today ID: MSSA pneumonia Bandemia On ceftriaxone 05/25-12 Previously on Zosyn 05/23-05/25. Abx day #10 for MSSA in sputum. Continued on Zosyn, Vanc discontinued Monitor for signs of infections ( Fever, WBC) ID is following- Pertinent: 06/01 -sputum -pending 05/31/13 -blood cultures 2 -pending 05/30 -bronchoscopy -no growth 05/30 -sputum -rare WBC/budding yeast 05/30 -blood cultures 2 -pending 05/25 -blood cultures 2 -no growth to date 05/25 -urine culture -no growth to date 05/23 -sputum -MSSA 05/23 -blood cultures 2 -no growth to date Endo: Currently on sliding scale insulin NovUlin R medium regimen every 6 hours sliding scale. TSH 2.3 MSK: Elevated BMI Weight loss encouraged PROPH: SCDs /Heparin subcut q 12 hours for DVT prophylaxis. (Previous radiology physician assistant documented discussion with Dr. Guzman who would be amenable to anticoagulation if felt to be indicated for stroke, Dr. Espinosa states currently recommends ASA at this time. ). ACCESS R IJ CVL 05/23- 05/31 Left IJ CVL placed 05/31 Radial arterial line placed 05/31 by respiratory therapy Critical Care: my billing statement This patient remains critically ill with one or more organ systems which are or may become a threat to life. I have spent in excess of 32 minutes discontinuously in the care and management of this patient. This time is exclusive of procedures, and includes, but is not limited to, evaluation of the patient, review of the medical record, discussions with family, consultants, nursing staff, or respiratory therapy, and documentation in the medical record. Physician Yanely Paul MD Jun 06, 2017 16:08
[2017-06-06] MEDS: CEFEPIME INJ 2,000 MG in SODIUM CHLORIDE 0.9% INJ 100 ML IV SCH (16:47)
[2017-06-06] MEDS: EPOPROSTENOL NEB SOLUTION 10 NG/KG/MIN 100 ML NEB SCH ×2 (17:47)
[2017-06-07] VITALS (16 sets, daily range): BP systolic 122–156; BP diastolic 56–74; PULSE 49–65; RESP 16–18; TEMP 97.6–98.8; O2SAT 91–96
[2017-06-07] MEDS: RESP: ALBUTEROL 2.5 MG/IPRATROPIUM 0.5 MG NEB (SCH) NEB ×2 (00:09→03:21)
[2017-06-07] MEDS: RESP: ACETYLCYSTEINE 10% 30 ML NEB NEB SCH ×2 (00:09→03:21)
[2017-06-07] MEDS: fentaNYL DRIP 250 ML IV PRN ×3 (01:19→17:59)
[2017-06-07] MEDS: MIDAZOLAM 100 MG/100 ML INJ 100 ML IV PRN ×2 (01:20→17:58)
[2017-06-07] MEDS: CHLORHEXIDINE GLUCONATE 2 % 1 PACK (2 CLOTHS) TOP SCH (04:00)
[2017-06-07 04:25] LABS: AUTOMATED NEUTROPHIL # 9.3 TH/MM3 (1.8-7.7); BASOPHIL % 0.2 % (0.0-2.0); HEMATOCRIT 29.7 % (39.0-51.0); HEMOGLOBIN 9.7 GM/DL (13.0-17.0); LYMPH % 9.8 % (9.0-44.0); LYMPHOCYTE # 1.2 TH/MM3 (1.0-4.8); MEAN CELL VOLUME 80.5 FL (80.0-100.0); MEAN CORPUSCULAR HEMOGLOBIN 26.2 PG (27.0-34.0); MEAN CORPUSCULAR HGB CONC 32.6 % (32.0-36.0); MEAN PLATELET VOLUME 8.8 FL (7.0-11.0); MONO % 10.9 % (0.0-8.0); MONOCYTE # 1.3 TH/MM3 (0-0.9); NEUT % 79.1 % (16.0-70.0); PLATELET COUNT 356 TH/MM3 (150-450); RED BLOOD COUNT 3.68 MIL/MM3 (4.50-5.90); RED CELL DISTRIBUTION WIDTH 16.4 % (11.6-17.2); WHITE BLOOD COUNT 11.8 TH/MM3 (4.0-11.0)
[2017-06-07 04:46] LABS: ALT (GPT) 451 U/L (12-78); AST (GOT) 80 U/L (15-37); BLOOD UREA NITROGEN 114 MG/DL (7-18); CALCIUM 8.3 MG/DL (8.5-10.1); CHLORIDE 112 MEQ/L (98-107); CREATININE 5.02 MG/DL (0.60-1.30); GLOMERULAR FILTRATION RATE 16 ML/MIN (>89); GLUCOSE,RANDOM 185 MG/DL (74-106); MAGNESIUM 2.3 MG/DL (1.5-2.5); PHOSPHORUS 3.5 MG/DL (2.5-4.9); SODIUM (NA) 154 MEQ/L (136-145)
[2017-06-07 04:49] LABS: ALKALINE PHOSPHATASE 99 U/L (45-117); TOTAL BILIRUBIN ADULT 0.8 MG/DL (0.2-1.0); TOTAL PROTEIN 7.1 GM/DL (6.4-8.2)
--- NOTE | 2017-06-07 05:00 | RADRPT ---
EXAM DATE/TIME: 06/07/2017 03:48 [facility] COMPARISON: CHEST SINGLE AP, June 06, 2017, 5:42. INDICATIONS : Short of breath. MEDICAL HISTORY : Hypertension. Aortic dissection SURGICAL HISTORY : None. ENCOUNTER: Subsequent ACUITY: 2 weeks PAIN SCORE: 0/10 LOCATION: Bilateral chest FINDINGS: Gastric tube is coiled in the stomach. Stable appearance to the partially consolidated infiltrate of the left lower lung. The right lung is clear. The heart is normal in size. CONCLUSION: Stable left lower lung infiltrate. Rudy Pollock MD on June 07, 2017 at 4:58 Board Certified Radiologist. This report was verified electronically.
[2017-06-07] MEDS: ARTIFICIAL TEARS OPTH SOLN 15 ML BTL EACH EYE SCH ×3 (05:06→21:09)
[2017-06-07] MEDS: methylPREDNISolone SOD SUCC 40 MG/1 ML VIAL IV PUSH SCH ×3 (05:06→21:09)
[2017-06-07] MEDS: DILTIAZEM HCL 90 MG TAB PO SCH ×4 (05:06→23:47)
[2017-06-07] MEDS: cloNIDine HCL 0.1 MG TAB PO SCH ×3 (05:06→21:10)
[2017-06-07] MEDS: hydrALAZINE HCL 20 MG/ML VIAL IV PUSH PRN ×2 (05:34→17:53)
[2017-06-07] MEDS: LACTULOSE SYRUP 20 GM/30 ML CUP OG-TUBE SCH ×5 (05:56→23:47)
[2017-06-07] MEDS: INSULIN NovoLIN REGULAR SUPPLEMENTAL SCALE SQ SCH ×5 (05:57→23:55)
--- NOTE | 2017-06-07 07:39 | PD.VS.PN ---
Subjective Subjective/Hospital Course Pt remains intubated, sedated BP controlled Main issues are pulmonary and renal. Good UOP. Betsy TF and LFTs declining Objective Vitals/I&O Date Time Temp Pulse Resp B/P (MAP) Pulse Ox O2 Delivery O2 Flow Rate FiO2 06/07/17 06:24 65 16 127/56 (79) 93 06/07/17 05:55 95 60 06/07/17 04:00 60 06/07/17 03:22 96 60 06/07/17 03:00 95 Mechanical Ventilator 60 06/07/17 03:00 51 06/07/17 03:00 98.8 51 16 156/74 (101) 95 06/07/17 00:10 96 65 06/07/17 00:00 65 06/06/17 23:00 65 06/06/17 23:00 98.6 65 16 144/72 (96) 96 06/06/17 23:00 96 Mechanical Ventilator 65 06/06/17 20:21 95 65 06/06/17 20:21 65 06/06/17 19:30 95 Mechanical Ventilator 65 06/06/17 19:30 98.1 63 16 139/66 (90) 95 Arterial Line 06/06/17 19:00 64 06/06/17 16:00 65 06/06/17 15:57 97 65 06/06/17 15:00 97 Mechanical Ventilator 65 06/06/17 15:00 63 06/06/17 15:00 98.1 63 16 155/79 (104) 97 142/75 (97) 06/06/17 12:33 93 65 06/06/17 12:08 90 60 06/06/17 12:00 65 06/06/17 11:00 98.3 68 16 135/63 (87) 91 149/80 (103) 06/06/17 11:00 68 06/06/17 11:00 91 Mechanical Ventilator 50 06/06/17 10:04 95 50 06/06/17 08:01 90 50 06/06/17 08:00 50 06/07/17 06/07/17 06/07/17 07:00 15:00 23:00 Intake Total 817 ml Output Total 1600 ml Balance -783 ml Physical Exam Intubated and sedated No overt abdominal tenderness although limited exam Feet warm with palpable pulses Laboratory Laboratory Tests Test 06/06/17 10:05 06/07/17 04:00 06/07/17 05:33 White Blood Count 13.8 11.8 Red Blood Count 3.67 3.68 Hemoglobin 9.6 9.7 Hematocrit 29.2 29.7 Mean Corpuscular Volume 79.5 80.5 Mean Corpuscular Hemoglobin 26.2 26.2 Mean Corpuscular Hemoglobin Concent 32.9 32.6 Red Cell Distribution Width 16.6 16.4 Platelet Count 354 356 Mean Platelet Volume 9.2 8.8 Neutrophils (%) (Auto) 79.3 79.1 Lymphocytes (%) (Auto) 10.5 9.8 Monocytes (%) (Auto) 9.8 10.9 Eosinophils (%) (Auto) 0.1 0.0 Basophils (%) (Auto) 0.3 0.2 Neutrophils # (Auto) 11.0 9.3 Lymphocytes # (Auto) 1.4 1.2 Monocytes # (Auto) 1.4 1.3 Eosinophils # (Auto) 0.0 0.0 Basophils # (Auto) 0.0 0.0 CBC Comment AUTO DIFF AUTO DIFF Differential Total Cells Counted 100 Neutrophils % (Manual) 74 Band Neutrophils % 5 Lymphocytes % 7 Monocytes % 11 Neutrophils # (Manual) 11.3 Metamyelocytes 3 Nucleated Red Blood Cells 1 Differential Comment FINAL DIFF MANUAL AUTO DIFF CONFIRMED Platelet Estimate NORMAL Platelet Morphology Comment NORMAL Blood Urea Nitrogen 104 114 Creatinine 5.32 5.02 Random Glucose 160 185 Calcium Level 8.7 8.3 Phosphorus Level 4.1 3.5 Magnesium Level 2.2 2.3 Sodium Level 148 154 Potassium Level 3.3 3.2 Chloride Level 108 112 Carbon Dioxide Level 30.7 31.0 Anion Gap 9 11 Estimat Glomerular Filtration Rate 15 16 Total Creatine Kinase 157 Total Protein 7.1 Albumin 2.0 Alkaline Phosphatase 99 Aspartate Amino Transf (AST/SGOT) 80 Alanine Aminotransferase (ALT/SGPT) 451 Total Bilirubin 0.8 Blood Gas Puncture Site LT RADIAL Blood Gas Patient Temperature 98.6 Blood Gas HCO3 29 Blood Gas Base Excess 5.1 Blood Gas Oxygen Saturation 97 Arterial Blood pH 7.47 Arterial Blood Partial Pressure CO2 40 Arterial Blood Partial Pressure O2 135 Arterial Blood Oxygen Content 13.6 Arterial Blood Carboxyhemoglobin 0.7 Arterial Blood Methemoglobin 1.3 Blood Gas Hemoglobin 9.8 Oxygen Delivery Device VENTILATOR Blood Gas Ventilator Setting SEE COMMMENT Blood Gas Inspired Oxygen 65 Date/Time Source Procedure Growth Status 06/01/17 00:02 Blood Peripheral Aerobic Blood Culture - Final NO GROWTH IN 5 DAYS Complete 06/01/17 00:02 Blood Peripheral Anaerobic Blood Culture - Final QNS - SEE AEROBE REPORT Complete 06/04/17 10:48 Sputum Nasal Tracheal Aspirate Gram Stain - Final Complete 06/04/17 10:48 Sputum Nasal Tracheal Aspirate Sputum Culture - Final HEAVY GROWTH NORMAL RESPIRATORY FARIDA Complete 05/25/17 12:30 Urine Catheterized Urine Urine Culture - Final NO GROWTH IN 48 HOURS. Complete Imaging Last 48 hours Impressions Chest X-Ray 06/07/17599 Signed Impressions: Service Date/Time: Wednesday, June 07, 2017 03:48 - CONCLUSION: Stable left lower lung infiltrate. Rudy Pollock MD Chest X-Ray 06/06/17599 Signed Impressions: Service Date/Time: Tuesday, June 06, 2017 05:42 - CONCLUSION: Improving but persistent left lower lobe infiltrate. Rudy Pollock MD Assessment and Plan Plan acute TBAD with renal dysfunction (?ATN) and pulmonary dysfunction 1. From an aortic standpoint, needs continued aggressive BP control with a goal SBP <120. There is no aortic contraindication to anticoagulation. Will need another CTA in 1m (outpatient) 2. ATN, non-oliguric - nephrology following 3. Wean vent 4. Continue TF 5. Remainder of management per ICU team Lobo Guzman MD FACS RPVI clinical registered nurse [facility] - [facility] V[facility] at [facility] [phone] Lobo Guzman MD Jun 07, 2017 07:39
[2017-06-07] MEDS: SODIUM CHLORIDE 0.9% FLUSH 10 ML FLUSH IV FLUSH SCH (08:18)
[2017-06-07] MEDS: CHLORHEXIDINE 0.12% (ORAL KIT) 15 ML CUP MT SCH ×2 (08:18→20:00)
[2017-06-07] MEDS: DOCUSATE SODIUM 50 MG/SENNA 8.6 MG TAB PO SCH ×2 (08:19→21:10)
[2017-06-07] MEDS: POLYETHYLENE GLYCOL 17 GM PKG NG SCH ×2 (08:19→21:11)
[2017-06-07] MEDS: HEPARIN SODIUM - SQ 10,000 UNITS/ML VIAL SQ SCH ×2 (08:31→21:09)
[2017-06-07] MEDS: CARVEDILOL 12.5 MG TAB PO SCH ×2 (08:31→21:11)
[2017-06-07] MEDS: FAMOTIDINE 20 MG/2 ML VIAL IV PUSH SCH ×2 (08:31→21:10)
[2017-06-07] MEDS: FUROSEMIDE 40 MG/4 ML VIAL IV PUSH SCH ×2 (08:31→21:10)
[2017-06-07] MEDS: ASPIRIN 81 MG CHEW TAB CHEW SCH (08:32)
[2017-06-07] MEDS: EPOPROSTENOL NEB SOLUTION 10 NG/KG/MIN 100 ML NEB SCH ×4 (10:01→17:34)
--- NOTE | 2017-06-07 10:28 | HHI.NPPN ---
Subjective History of Present Illness 36 year old with Aortic dissection ARF Additional Remarks Patient remains intubated Objective Data Data Vital Signs Date Time Temp Pulse Resp B/P (MAP) Pulse Ox O2 Delivery O2 Flow Rate FiO2 06/07/17 10:07 94 60 06/07/17 08:09 93 60 06/07/17 08:00 60 06/07/17 07:00 98.0 58 17 123/58 (79) 95 06/07/17 07:00 95 Mechanical Ventilator 60 06/07/17 07:00 63 06/07/17 06:24 65 16 127/56 (79) 93 06/07/17 05:55 95 60 06/07/17 04:00 60 06/07/17 03:22 96 60 06/07/17 03:00 95 Mechanical Ventilator 60 06/07/17 03:00 51 06/07/17 03:00 98.8 51 16 156/74 (101) 95 06/07/17 00:10 96 65 06/07/17 00:00 65 06/06/17 23:00 65 06/06/17 23:00 98.6 65 16 144/72 (96) 96 06/06/17 23:00 96 Mechanical Ventilator 65 06/06/17 20:21 95 65 06/06/17 20:21 65 06/06/17 19:30 95 Mechanical Ventilator 65 06/06/17 19:30 98.1 63 16 139/66 (90) 95 Arterial Line 06/06/17 19:00 64 06/06/17 16:00 65 06/06/17 15:57 97 65 06/06/17 15:00 97 Mechanical Ventilator 65 06/06/17 15:00 63 06/06/17 15:00 98.1 63 16 155/79 (104) 97 142/75 (97) 06/06/17 12:33 93 65 06/06/17 12:08 90 60 06/06/17 12:00 65 06/06/17 11:00 98.3 68 16 135/63 (87) 91 149/80 (103) 06/06/17 11:00 68 06/06/17 11:00 91 Mechanical Ventilator 50 -: 06/07/17 0400 06/07/17 0400 Physical Exam General Appearance: Well Developed Eyes Eye Exam: Pupils Equal Neck Neck Exam: Neck Supple Pulmonary Resp Exam: Clear Bilaterally Cardiology CV Exam: Regular, Normal Sinus Rhythm Gastrointestinal/Abdomen GI Exam: Soft, Non-Tender Genitourinary Exam: Clear Urine Integumentary Skin Exam: Intact Extremeties Extremities Exam: Moderate Edema, Pitting Edema, Dependent Edema Assessment/Plan Problem List: (1) Acute renal failure ICD Codes: N17.9 - Acute kidney failure, unspecified Plan: He has large dissection of aorta continue to monitor he is passing urine , creatinine he did receive IV contrast repeat CTA Dissection up to Common Iliac arteries seen with true and false lumen perfused Cr 5.6-> 5.7 -> 5.7 -> 5.3 -> 5 non oliguric, on Lasix . Lasix to 40mg IV q12. Patient has good urine out. Potassium being replaced again today. CK improving Inc LFT Ongoing azotemia; however good UOP. Potassium low/replace Ongoing UOP is encouraging, continue to monitor. No urgency for HD initiation - continue to closely monitor. (2) Dissection of aorta, thoracoabdominal ICD Codes: I71.03 - Dissection of thoracoabdominal aorta Status: Acute Plan: vascular is following Renal arteries remains perfused Roz Flannery MD Jun 07, 2017 10:27
[2017-06-07] MEDS: POTASSIUM CHLORIDE 25 MEQ EFFERVESCENT TAB NG SCH ×2 (10:49→21:10)
[2017-06-07] MEDS: CEFEPIME INJ 2,000 MG in SODIUM CHLORIDE 0.9% INJ 100 ML IV SCH (16:27)
--- NOTE | 2017-06-07 16:30 | PD.WCN.NOT ---
Wound Consult Description: Received consult for pressure ulcer, Buttocks. Pressure ulcer vs. skin breakdown. Communicated with: SAUL Torres Recommendation: 1.Please cleanse buttock area with Remedy barrier wipes. 2. Apply thick layer Calazime barrier cream to buttock, gluteal cleft, and perianal areas BID and PRN. Please do not scrub to remove old barrier cream when cleaning patient. Ok to layer Calazime barrier cream. 3. Please insert dignisheild for loose stools 4. Turn patient every 2 hours and PRN for comfort and offloading of clarissa prominences 5. Obtain alternating pressure pump for satyha CIC bed. 6. Please Vocera wound care nurse for deteriorating wound. Additional Information: Patient seen on CVICU for evaluation of pressure ulcer to buttocks.Patient is intubated and sedated with tube feedings and requires total assistance at this time. Patient was turned to L side with the assistance of SAUL Henry, rewriter and INFORMATION SYSTEMS CONSULTANT to reveal partial thickness skin loss to bilateral buttocks with jagged wound margins and surrounding denuded peeling skin.Largest area of partial thickness skin loss measuring ~8cm x ~4cm x ~<0.1cm. Wound appears to be the result of moisture and friction.Patient noted with loose stool. Cleansed bilateral buttock area with Remedy barrier wipes to remove stool. Applied thick layer of Calazime skin protectant paste to bilateral buttock, gluteal cleft and perianal area. New ultrasorb pad placed, and soiled ultrasorb pad removed. Removed thick cloth pads and placed draw sheet under patient for positioning purposes. Patient was then positioned to R side with pillows in place for support. RN to obtain alternating pressure pump for bed. Lidia Bryant [facility] Jun 07, 2017 16:30
[2017-06-07] MEDS ORDERED: PROPOFOL 500 MG/50 ML INJ 50 ML ONE (17:28)
--- NOTE | 2017-06-07 17:52 | HHI.CCPN ---
Subjective Remarks/Hospital Course 05/19: Is a 36-year-old male with a history of hypertension who is on vacation from the [place] area who did not take his antihypertensives today because he is on vacation, and was having sexual intercourse when he had sudden onset of severe substernal radiating to the back chest pain earlier today. 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 He was emergently transferred to [facility] for further management. I evaluated the patient on arrival to the ICU by EVAC. Patient denies abdominal pain. Still endorses chest pain although this is improving. Patient denies any other symptoms. CT chest abdomen pelvis was reviewed and reviewed with myself and Dr. Guzman and does demonstrate a type B dissection. 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 Initial laboratory evidence demonstrates a lactate of 1.3, creatinine 1.2, normal LFTs. 05/20: On home C Pap. Urine output 30 cc/h currently. Remains on esmolol and labetalol drips. Remains drowsy though arousable. +4.4 L 05/21: Resting comfortably on nasal cannula. Awake and alert currently. Denies any shortness of breath or chest pain currently. 05/22: AAO x3, resting comfortably. 05/23 Patient went into PEA arrest early this morning now sedated with Diprivan and intubated. Off Esmolol drip. 05/24 Patient is sedated with Diprivan and intubated. On Labetolol drip. MRI brain yesterday showed multiple small infracts, no hemorrhage. 05/25 Patient remains intubated and sedated. T: 100.5 last night. Renal function is worsening with Cr: 3.6 from 3.4 and UOP: 2650ml in 24 hrs. 05/26 No events overnight. Sedated and intubated. Afebrile. Cr: 3.62 , UOP: 1950ml in 24 hrs 05/27 Patient was extubated yesterday placed on BIPAP overnight. Cr: 3.42 today , UOP: 1800 ml in 24 hrs 05/28 Extubated yesterday and per report was compliant with Bipap overnight Remains on esmolol drip 200 mcg/kg/min and SBP in 140s. ZULY, probable ATN non- oliguric however I>>0 with significant intake from MIVF as well as 180 mL/hr from esmolol drip. IVF d/c per nephrology and transitioning off esmolol to minimize fluid. Hugo now per my discussion with Dr. Thornton. He is tachypneic, obtained ABG with hypercapnea on simple mask. Placing On Bipap. at bedside requesting eventual transfer to [place], though she realized he is not stable for that yet. 05/29: Remains on BiPAP since 299 with increasing respiratory rates. Will attempt a more aggressive diuresis. We started on esmolol drip due to persistent tachycardia and unable to reach target blood pressure and heart rate requirements. At high risk for reintubation. 05/30: Remained hypotensive overnight. This a.m. 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 Will require bronchoscopy this afternoon. Continue with aggressive diuresis. Broad antibiotic coverage. Start tube feeding. The systolic blood pressure better controlled while intubated on propofol and fentanyl drips. 05/31: T-max 102.8. Currently 99.6. FiO2 down to 80%. The same noted elevated transaminases AST of 2674. ALT of 1590. Creatinine is increased to 3.07 to 4.36. +2 L past 24 hours. One bowel movement. Noted prior gallbladder wall thickening on previous ultrasound. We will repeat today Subjective 06/01: T-max 102.5. Currently 98.9. Desaturate overnight resolved currently FiO2 of 80%. 4500 cc urine output. Creatinine continues to rise currently 4.9. CPK currently 6165. We will discontinue propofol with hepatomegaly, rhabdomyolysis possibly indicative propofol infusion syndrome. 06/02 Patient remains intubated and sedated. On Fentanyl, Versed and Nimbex. T: 100.0 at midnight. On PC/AC with PEEP:15, FIO2 50% Renal function continue to decline with Cr: 5.40 from 4.91 and UOP: 2895 ml in 24 hrs 06/03 Patient remains intubated and sedated with Versed, Fentanyl drips. Remains on Nimbex and Flolan. Cr: 5.6 from 5.4 with UOP: 3790 ml in 24 hrs. 06/04:Afebrile. Overnight the patient had an episode of hypotension during the and all sedation was briefly discontinued, then resumed for ventilator synchrony. Clonidine dosage decreased. Patient continues on pressure control mode, and Flolan for adequate oxygenation. Creatinine noted to be 5.7 weight urine output 3220cc/24 hrs. 06/05: Afebrile. This x-ray revealed improving area aeration of the right hemithorax. PEEP decreased this a.m. to 12, patient continues on FiO2 55% and Flolan, planned weaning. Electrolytes currently being replaced. Elevated liver enzymes continue to down trend. 06/06: Respiratory requirements decreasing, patient now on Flolan 10 ng/kg/min with FiO2 at 60%, maintaining O2 saturation 92%. Creatinine continues to down trend. Leukocytosis improving. 06/07: Flolan discontinued, FIO2 65%. Propofol added to maintain ventilator synchrony. Patient currently on 10 mg of Versed and 250 mics of fentanyl. Wound care was consulted for skin breakdown on buttocks secondary to multiple bowel movements, patient continues on Avani bed. Objective Vital Signs Date Time Temp Pulse Resp B/P (MAP) Pulse Ox O2 Delivery O2 Flow Rate FiO2 06/07/17 16:00 65 06/07/17 15:15 96 06/07/17 15:00 Mechanical Ventilator 06/07/17 15:00 97.8 49 16 140/70 (93) Intake and Output 06/07/17 06/07/17 06/08/17 08:00 16:00 00:00 Intake Total 817 ml Output Total 1600 ml Balance -783 ml Result Diagram: 06/07/17 0400 06/07/17 0400 Other Results Laboratory Tests Test 06/07/17 05:33 Blood Gas Puncture Site LT RADIAL Blood Gas Patient Temperature 98.6 Blood Gas HCO3 29 mmol/L (22-26) Blood Gas Base Excess 5.1 mmol/L (-2-2) Blood Gas Oxygen Saturation 97 % (90-100) Arterial Blood pH 7.47 (7.380-7.420) Arterial Blood Partial Pressure CO2 40 mmHg (38-42) Arterial Blood Partial Pressure O2 135 mmHg (61-120) Arterial Blood Oxygen Content 13.6 Vol % (12.0-20.0) Arterial Blood Carboxyhemoglobin 0.7 % (0-4) Arterial Blood Methemoglobin 1.3 % (0-2) Blood Gas Hemoglobin 9.8 G/DL (12.0-16.0) Oxygen Delivery Device VENTILATOR Blood Gas Ventilator Setting SEE COMMMENT Blood Gas Inspired Oxygen 65 % Imaging Last Impressions Chest X-Ray 06/04/17 0600 Signed Impressions: Service Date/Time: Sunday, June 04, 2017 07:42 - CONCLUSION: Given the degree of hypoinflation the overall lung exam remains stable. The endotracheal tube is positioned 1 cm above the level of the clavicles. Lori Villasenor MD Abdomen X-Ray 06/02/17 0000 Signed Impressions: Service Date/Time: May 10:18 - CONCLUSION: NG tip in stomach. Left basilar airspace disease. Elevated right hemidiaphragm. Bowel gas pattern demonstrates mild ileus Tc Varghese MD Liver Ultrasound 05/31/17 1434 Signed Impressions: Service Date/Time: Wednesday, May 31, 2017 14:40 - CONCLUSION: 1. Interval apparent hepatomegaly with diffusely increased hepatic echogenicity. Given the acuity of findings, findings may reflect acute hepatitis or congestive hepatopathy. 2. Persistently contracted gallbladder which accentuates the gallbladder wall with persistent gallbladder wall thickening and trace pericholecystic fluid. These findings are commonly seen in the setting of liver disease although differential considerations include acalculous cholecystitis. HIDA scan may be performed for better evaluation as clinically appropriate. 3. Andrew Kraft MD Lung Scan- Nuclear Medicine 05/23/17 0000 Signed Impressions: Service Date/Time: Tuesday, May 23, 2017 10:22 - CONCLUSION: Low probability of pulmonary embolism. Buddy Harrison MD FACR Lower Extremity Ultrasound 05/23/17 0000 Signed Impressions: Service Date/Time: Tuesday, May 23, 2017 08:02 - CONCLUSION: Negative for deep venous thrombosis. Buddy Harrison MD FACR Head CT 05/23/17 0000 Signed Impressions: Service Date/Time: Tuesday, May 23, 2017 03:56 - CONCLUSION: 1. Examination quality is degraded by motion artifact. 2. No definite acute finding is identified. There is a 3 mm punctate area of high density in the left frontal periventricular white matter. This could represent small focus of acute blood products. Suggest attention to this on followup imaging. Wiliam Buck MD Brain MRI 05/23/17 0000 Signed Impressions: Service Date/Time: Tuesday, May 23, 2017 15:59 - CONCLUSION: 1. 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 2. No hemorrhage observe. 3. Pansinus disease. Rudy Cervantes Jr., MD Aorta CTA 05/23/17 0000 Signed Impressions: Service Date/Time: Tuesday, May 23, 2017 03:58 - CONCLUSION: 1. 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 The dissection extends to the abdominal aorta and terminates in the common iliac arteries bilaterally. The abdominal vessels arise from both the true and false lumens and demonstrate good opacification. Suggest correlating with the patient's prior imaging study which documents the dissection. 2. 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 3. There is stranding of the periaortic fat adjacent to the arch aneurysm. 4. There are small bilateral pleural effusions, left larger than right, with bilateral volume loss and/or airspace consolidation bilaterally. Wiliam Buck MD Abdomen Ultrasound 05/23/17 0000 Signed Impressions: Service Date/Time: Tuesday, May 23, 2017 17:22 - CONCLUSION: 1. Gall bladder wall thickening and possible pericholecystic fluid without evidence of gallstones. May consider perform hepatic biliary tract scan to evaluate for acalculous cholecystitis. 2. No focal abnormality seen within the liver. Rudy Pollock MD Last Impressions Chest X-Ray 06/04/17 0600 Signed Impressions: Service Date/Time: Sunday, June 04, 2017 07:42 - CONCLUSION: Given the degree of hypoinflation the overall lung exam remains stable. The endotracheal tube is positioned 1 cm above the level of the clavicles. Lori Villasenor MD Abdomen X-Ray 06/02/17 0000 Signed Impressions: Service Date/Time: May 10:18 - CONCLUSION: NG tip in stomach. Left basilar airspace disease. Elevated right hemidiaphragm. Bowel gas pattern demonstrates mild ileus Tc Varghese MD Liver Ultrasound 05/31/17 1434 Signed Impressions: Service Date/Time: Wednesday, May 31, 2017 14:40 - CONCLUSION: 1. Interval apparent hepatomegaly with diffusely increased hepatic echogenicity. Given the acuity of findings, findings may reflect acute hepatitis or congestive hepatopathy. 2. Persistently contracted gallbladder which accentuates the gallbladder wall with persistent gallbladder wall thickening and trace pericholecystic fluid. These findings are commonly seen in the setting of liver disease although differential considerations include acalculous cholecystitis. HIDA scan may be performed for better evaluation as clinically appropriate. 3. Andrew Kraft MD Lung Scan-VQ Nuclear Medicine 05/23/17 Signed Impressions: Service Date/Time: Tuesday, May 23, 2017 10:22 - CONCLUSION: Low probability of pulmonary embolism. Buddy Harrison MD FACR Lower Extremity Ultrasound 05/23/17 Signed Impressions: Service Date/Time: Tuesday, May 23, 2017 08:02 - CONCLUSION: Negative for deep venous thrombosis. Buddy Harrison MD FACR Head CT 05/23/17 Signed Impressions: Service Date/Time: Tuesday, May 23, 2017 03:56 - CONCLUSION: 1. Examination quality is degraded by motion artifact. 2. No definite acute finding is identified. There is a 3 mm punctate area of high density in the left frontal periventricular white matter. This could represent small focus of acute blood products. Suggest attention to this on followup imaging. Wiliam Buck MD Brain MRI 05/23/17 Signed Impressions: Service Date/Time: Tuesday, May 23, 2017 15:59 - CONCLUSION: 1. 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 2. No hemorrhage observe. 3. Pansinus disease. Rudy Cervantes Jr., MD Aorta CTA 05/23/17 Signed Impressions: Service Date/Time: Tuesday, May 23, 2017 03:58 - CONCLUSION: 1. 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 The dissection extends to the abdominal aorta and terminates in the common iliac arteries bilaterally. The abdominal vessels arise from both the true and false lumens and demonstrate good opacification. Suggest correlating with the patient's prior imaging study which documents the dissection. 2. 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 3. There is stranding of the periaortic fat adjacent to the arch aneurysm. 4. There are small bilateral pleural effusions, left larger than right, with bilateral volume loss and/or airspace consolidation bilaterally. Wiliam Buck MD Abdomen Ultrasound 05/23/17 0000 Signed Impressions: Service Date/Time: Tuesday, May 23, 2017 17:22 - CONCLUSION: 1. Gall bladder wall thickening and possible pericholecystic fluid without evidence of gallstones. May consider perform hepatic biliary tract scan to evaluate for acalculous cholecystitis. 2. No focal abnormality seen within the liver. Rudy Pollock MD Last Impressions Chest X-Ray 06/04/17 0600 Signed Impressions: Service Date/Time: Sunday, June 04, 2017 07:42 - CONCLUSION: Given the degree of hypoinflation the overall lung exam remains stable. The endotracheal tube is positioned 1 cm above the level of the clavicles. Lori Villasenor MD Abdomen X-Ray 06/02/17 0000 Signed Impressions: Service Date/Time: May 10:18 - CONCLUSION: NG tip in stomach. Left basilar airspace disease. Elevated right hemidiaphragm. Bowel gas pattern demonstrates mild ileus Tc Varghese MD Liver Ultrasound 05/31/17 1434 Signed Impressions: Service Date/Time: Wednesday, May 31, 2017 14:40 - CONCLUSION: 1. Interval apparent hepatomegaly with diffusely increased hepatic echogenicity. Given the acuity of findings, findings may reflect acute hepatitis or congestive hepatopathy. 2. Persistently contracted gallbladder which accentuates the gallbladder wall with persistent gallbladder wall thickening and trace pericholecystic fluid. These findings are commonly seen in the setting of liver disease although differential considerations include acalculous cholecystitis. HIDA scan may be performed for better evaluation as clinically appropriate. 3. Andrew Kraft MD Lung Scan-VQ Nuclear Medicine 05/23/17 0000 Signed Impressions: Service Date/Time: Tuesday, May 23, 2017 10:22 - CONCLUSION: Low probability of pulmonary embolism. Buddy Harrison MD FACR Lower Extremity Ultrasound 05/23/17 0000 Signed Impressions: Service Date/Time: Tuesday, May 23, 2017 08:02 - CONCLUSION: Negative for deep venous thrombosis. Buddy Harrison MD FACR Head CT 05/23/17 Signed Impressions: Service Date/Time: Tuesday, May 23, 2017 03:56 - CONCLUSION: 1. Examination quality is degraded by motion artifact. 2. No definite acute finding is identified. There is a 3 mm punctate area of high density in the left frontal periventricular white matter. This could represent small focus of acute blood products. Suggest attention to this on followup imaging. Wiliam Buck MD Brain MRI 05/23/17 0000 Signed Impressions: Service Date/Time: Tuesday, May 23, 2017 15:59 - CONCLUSION: 1. 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 2. No hemorrhage observe. 3. Pansinus disease. Rudy Cervantes Jr., MD Aorta CTA 05/23/17 0000 Signed Impressions: Service Date/Time: Tuesday, May 23, 2017 03:58 - CONCLUSION: 1. 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 The dissection extends to the abdominal aorta and terminates in the common iliac arteries bilaterally. The abdominal vessels arise from both the true and false lumens and demonstrate good opacification. Suggest correlating with the patient's prior imaging study which documents the dissection. 2. 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 3. There is stranding of the periaortic fat adjacent to the arch aneurysm. 4. There are small bilateral pleural effusions, left larger than right, with bilateral volume loss and/or airspace consolidation bilaterally. Wiliam Buck MD Abdomen Ultrasound 05/23/17 0000 Signed Impressions: Service Date/Time: Tuesday, May 23, 2017 17:22 - CONCLUSION: 1. Gall bladder wall thickening and possible pericholecystic fluid without evidence of gallstones. May consider perform hepatic biliary tract scan to evaluate for acalculous cholecystitis. 2. No focal abnormality seen within the liver. Rudy Pollock MD Last Impressions Chest X-Ray 06/03/17 0600 Signed Impressions: Service Date/Time: Saturday, June 03, 2017 04:16 - CONCLUSION: 1. Interval complete opacification of the right upper lobe. 2. Stable left basilar consolidation/effusion and stable patchy airspace disease medially in the right lower lung field. 3. Stable position of life support tubes. Rodrigue Miller MD Abdomen X-Ray 06/02/17 0000 Signed Impressions: Service Date/Time: May 10:18 - CONCLUSION: NG tip in stomach. Left basilar airspace disease. Elevated right hemidiaphragm. Bowel gas pattern demonstrates mild ileus Tc Varghese MD Liver Ultrasound 05/31/17 1434 Signed Impressions: Service Date/Time: Wednesday, May 31, 2017 14:40 - CONCLUSION: 1. Interval apparent hepatomegaly with diffusely increased hepatic echogenicity. Given the acuity of findings, findings may reflect acute hepatitis or congestive hepatopathy. 2. Persistently contracted gallbladder which accentuates the gallbladder wall with persistent gallbladder wall thickening and trace pericholecystic fluid. These findings are commonly seen in the setting of liver disease although differential considerations include acalculous cholecystitis. HIDA scan may be performed for better evaluation as clinically appropriate. 3. Andrew Kraft MD Lung Scan-V Nuclear Medicine 05/23/17 0000 Signed Impressions: Service Date/Time: Tuesday, May 23, 2017 10:22 - CONCLUSION: Low probability of pulmonary embolism. Buddy Harrison MD FACR Lower Extremity Ultrasound 05/23/17 0000 Signed Impressions: Service Date/Time: Tuesday, May 23, 2017 08:02 - CONCLUSION: Negative for deep venous thrombosis. Buddy Harrison MD FACR Head CT 05/23/17 0000 Signed Impressions: Service Date/Time: Tuesday, May 23, 2017 03:56 - CONCLUSION: 1. Examination quality is degraded by motion artifact. 2. No definite acute finding is identified. There is a 3 mm punctate area of high density in the left frontal periventricular white matter. This could represent small focus of acute blood products. Suggest attention to this on followup imaging. Wiliam Buck MD Brain MRI 05/23/17 0000 Signed Impressions: Service Date/Time: Tuesday, May 23, 2017 15:59 - CONCLUSION: 1. 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 2. No hemorrhage observe. 3. Pansinus disease. Rudy Cervantes Jr., MD Aorta CTA 05/23/17 0000 Signed Impressions: Service Date/Time: Tuesday, May 23, 2017 03:58 - CONCLUSION: 1. 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 The dissection extends to the abdominal aorta and terminates in the common iliac arteries bilaterally. The abdominal vessels arise from both the true and false lumens and demonstrate good opacification. Suggest correlating with the patient's prior imaging study which documents the dissection. 2. 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 3. There is stranding of the periaortic fat adjacent to the arch aneurysm. 4. There are small bilateral pleural effusions, left larger than right, with bilateral volume loss and/or airspace consolidation bilaterally. Wiliam Buck MD Abdomen Ultrasound 05/23/17 0000 Signed Impressions: Service Date/Time: Tuesday, May 23, 2017 17:22 - CONCLUSION: 1. Gall bladder wall thickening and possible pericholecystic fluid without evidence of gallstones. May consider perform hepatic biliary tract scan to evaluate for acalculous cholecystitis. 2. No focal abnormality seen within the liver. Rudy Pollock MD Objective Remarks GENERAL: This is a 36-year-old well-developed well-nourished AA male resting in bed orotracheally intubated, and sedated SKIN: Warm and dry, adequately perfused. HEAD: Normocephalic. EYES: Pupils 3 mm and reactive. No scleral icterus. No injection or drainage. NECK: Supple, trachea midline. No JVD or lymphadenopathy. Left IJ CVL is clean dry and intact CARDIOVASCULAR: Distant. RRR. S1, S2 no S4. Cannot appreciate murmurs, clicks , gallops or rubs RESPIRATORY: Coarse rhonchorous crackles noted throughout all lung [place] anterior-posterior bilaterally. No wheezing GASTROINTESTINAL: Abdomen soft, non-tender, nondistended. Hypoactive bowel sounds are appreciated MUSCULOSKELETAL: No cyanosis. Edema 2+ bilateral upper and lower extremities NEURO: Currently sedated on Versed and fentanyl drips. Positive gag and corneal reflex. Positive cough. 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 On Fentanyl, Versed infusion to maintain ventilator synchrony. Propofol discontinued 06/03. Nimbex discontinued 06/03 Goal of RASS -2 Daily sedation vacation when appropriate Acetaminophen 650 mg by tube every 6 hours as needed fever discontinued due to elevated transaminases Evaluated by neurology/Dr. Espinosa MRI brain 05/23 revealed bilateral frontal embolic CVA CT brain: There is a 3 mm punctate area of high density in the left frontal periventricular white matter. This could represent small focus of acute blood products. EEG : Mild diffuse encephalopathy, no seizure activity Continue aspirin 162 mg p.o. daily. Okayed with neurology. CV: Hypertensive emergency Acute type B aortic dissection Elevated troponin PEA cardiac arrest 05/23/17, secondary to obstructive sleep apnea/obesity hypoventilation syndrome with Bipap nonadherence. CTA stable. VQ scan negative . Hyperlipidemia Monitor HR and BP keep MAP>65mmHg Currently on carvedilol 25 mg twice daily Diltiazem 90 mg every 6 hours 06/04 Decreased Clonidine from 0.3 to 0.1 mg every 8 hours Repeat echo 05/23: EF 60-65%, no RWMA Evaluated by cardiology, Dr. Bhakta on 05/24 due to troponin elevation. He attributed elevated troponin to PEA arrest, hypoxia, renal insufficiency. No further ischemic workup planned at this time. 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 The dissection extends to the abdominal aorta and terminates in the common iliac arteries bilaterally. The abdominal vessels arise from both the true and false lumens and demonstrate good opacification. Vascular surgery is following- Dr. Thomas Thomas: Obstructive sleep apnea Obesity hypoventilation syndrome Acute hypercapnic respiratory failure intubated 05/30 Ventilator dependent respiratory failure PC/ACIP:25, IT:1.9, PEEP:12, FIO2 55%, decrease FIO2 as kell. Ventilator bundle Bronchodilators, Duoneb Q4, add Mucomyst nebs On Flolan nebs decreased to 10ng/kg/min FIO2 .60 Continue solumederol 60mg Q8hr V/Q scan: low prob PE CXR 06/05- improving area right hemothorax with persistent left basilar consolidation/effusion and stable patchy airspace disease s/p bronch today showed mucous plugs/ thick secretions b/l, normal mucosa, no evidence of EBL, BAL performed RUL. Status post bronchoscopy 05/30 revealed no mucus plugging. Normal bronchial mucosa without lesions. No signs of bleeding. LEN negative Renal/: Nonoliguric acute kidney injury Rhabdo Likely secondary to ischemic ATN following cardiac arrest. Furosemide 40 mg IV every 8 hours Cr: 5.7 from 5.3- UOP >4000cc/24 hrs Renal is following- Dr. Flannery US abdomen: No hydronephrosis. GI: Elevated transaminases Hypoalbuminemia Hyperammonia Patient had 3 BM',Nepro @ 35ml/hr-no residuals Famotidine 20 mg by tube daily for GI prophylaxis written to switch to 10 mg twice daily by pharmacy Docusate/senna 1 tablet twice daily, polyethylene glycol 17 g twice daily and lactulose 30 cc twice daily for bowel regimen. Monitor LFT's (trending down),Hep profile is negative Abdominal ultrasound 05/31 -market hepatic congestion. Contracted gallbladder with pericholecystic fluid. Possible acalculous cholecystitis recommend HIDA scan if clinically able. US abdomen: Gall bladder wall thickening and possible pericholecystic fluid without evidence of gallstones. Recommend HIDA scan if clinically indicated Lactulose 30 cc 4 times daily. 06/05 ammonia level 17 GI following Heme: Persistent Leukocytosis Microcytic anemia Monitor CBC VQ scan negative 05/23 BLE u/s negative for DVT 05/23 ID: MSSA pneumonia Bandemia On ceftriaxone 05/25-12 Previously on Zosyn 05/23-05/25. Abx day #10 for MSSA in sputum. Continued on Zosyn, Vanc discontinued Monitor for signs of infections ( Fever, WBC) ID is following- Pertinent: 06/01 -sputum -pending 05/31/13 -blood cultures 2 -pending 05/30 -bronchoscopy -no growth 05/30 -sputum -rare WBC/budding yeast 05/30 -blood cultures 2 -pending 05/25 -blood cultures 2 -no growth to date 05/25 -urine culture -no growth to date 05/23 -sputum -MSSA 05/23 -blood cultures 2 -no growth to date Endo: Currently on sliding scale insulin NovUlin R medium regimen every 6 hours sliding scale. TSH 2.3 MSK: Elevated BMI Weight loss encouraged PROPH: SCDs /Heparin subcut q 12 hours for DVT prophylaxis. (Previous sausage smoker documented discussion with Dr. Guzman who would be amenable to anticoagulation if felt to be indicated for stroke, Dr. Espinosa states currently recommends ASA at this time. ). ACCESS R IJ CVL 05/23- 05/31 Left IJ CVL placed 05/31 Radial arterial line placed 05/31 by respiratory therapy Critical Care: my billing statement This patient remains critically ill with one or more organ systems which are or may become a threat to life. I have spent in excess of 30 minutes discontinuously in the care and management of this patient. This time is exclusive of procedures, and includes, but is not limited to, evaluation of the patient, review of the medical record, discussions with family, consultants, nursing staff, or respiratory therapy, and documentation in the medical record. Physician Yanely Paul MD Jun 07, 2017 17:52
[2017-06-07] MEDS: PROPOFOL 1000 MG/100 ML INJ 100 ML IV PRN ×2 (18:03→21:08)
[2017-06-08] VITALS (16 sets, daily range): BP systolic 120–139; BP diastolic 55–72; PULSE 48–79; RESP 9–16; TEMP 97.9–98.8; O2SAT 94–98
[2017-06-08] MEDS: RESP: ALBUTEROL 2.5 MG/3 ML NEB (PRN) NEB (00:43)
[2017-06-08] MEDS: CHLORHEXIDINE GLUCONATE 2 % 1 PACK (2 CLOTHS) TOP SCH (04:00)
[2017-06-08 04:44] LABS: HEMATOCRIT 28.4 % (39.0-51.0); HEMOGLOBIN 9.4 GM/DL (13.0-17.0); MEAN CELL VOLUME 80.4 FL (80.0-100.0); MEAN CORPUSCULAR HEMOGLOBIN 26.5 PG (27.0-34.0); MEAN CORPUSCULAR HGB CONC 32.9 % (32.0-36.0); PLATELET COUNT 339 TH/MM3 (150-450); RED BLOOD COUNT 3.54 MIL/MM3 (4.50-5.90); RED CELL DISTRIBUTION WIDTH 16.8 % (11.6-17.2); WHITE BLOOD COUNT 12.2 TH/MM3 (4.0-11.0)
--- NOTE | 2017-06-08 05:07 | RADRPT ---
EXAM DATE/TIME: 06/08/2017 03:27 [facility] COMPARISON: CHEST SINGLE AP, June 07, 2017, 3:48. INDICATIONS : Shortness of breath. MEDICAL HISTORY : Hypertension. Aortic disection SURGICAL HISTORY : None. ENCOUNTER: Subsequent ACUITY: 2 weeks PAIN SCORE: Non-responsive. LOCATION: Bilateral chest FINDINGS: ET tube tip well above the julee. Gastric tube tip projects within the stomach. Left internal jugu lar catheter tip projects over the origin of the superior vena cava. There is persistent consolidati on in the left lower lobe with loss of delineation the entire left hemidiaphragm. There is no partia lly consolidative infiltrate in the right lower lung. The lower lateral right lung cannot be evaluat ed due to superimposed lead junction box. CONCLUSION: Persistent left lower lobe consolidation. New partially consolidated right lower lung infiltrates. Rudy Pollock MD on June 08, 2017 at 5:04 Board Certified Radiologist. This report was verified electronically.
[2017-06-08] MEDS: fentaNYL DRIP 250 ML IV PRN ×2 (05:12→14:54)
[2017-06-08] MEDS: MIDAZOLAM 100 MG/100 ML INJ 100 ML IV PRN ×2 (05:12→15:07)
[2017-06-08] MEDS: ARTIFICIAL TEARS OPTH SOLN 15 ML BTL EACH EYE SCH ×3 (05:13→20:56)
[2017-06-08] MEDS: methylPREDNISolone SOD SUCC 40 MG/1 ML VIAL IV PUSH SCH ×3 (05:13→20:56)
[2017-06-08] MEDS: hydrALAZINE HCL 20 MG/ML VIAL IV PUSH PRN ×5 (05:13→22:12)
[2017-06-08] MEDS: LACTULOSE SYRUP 20 GM/30 ML CUP OG-TUBE SCH ×4 (05:13→23:14)
[2017-06-08] MEDS: DILTIAZEM HCL 90 MG TAB PO SCH ×4 (05:14→23:15)
[2017-06-08] MEDS: cloNIDine HCL 0.1 MG TAB PO SCH ×3 (05:14→20:56)
[2017-06-08 05:40] LABS: BICARBONATE 33.1 MEQ/L (21.0-32.0); CALCIUM 8.2 MG/DL (8.5-10.1); CREATININE 4.46 MG/DL (0.60-1.30); MAGNESIUM 2.3 MG/DL (1.5-2.5); PHOSPHORUS 3.9 MG/DL (2.5-4.9)
[2017-06-08] MEDS: INSULIN NovoLIN REGULAR SUPPLEMENTAL SCALE SQ SCH ×4 (06:30→23:15)
[2017-06-08] MEDS: SODIUM CHLORIDE 0.9% FLUSH 10 ML FLUSH IV FLUSH SCH (08:19)
[2017-06-08] MEDS: CARVEDILOL 12.5 MG TAB PO SCH ×3 (09:00→20:55)
[2017-06-08] MEDS: ASPIRIN 81 MG CHEW TAB CHEW SCH (09:04)
[2017-06-08] MEDS: DOCUSATE SODIUM 50 MG/SENNA 8.6 MG TAB PO SCH ×2 (09:04→20:55)
[2017-06-08] MEDS: FAMOTIDINE 20 MG/2 ML VIAL IV PUSH SCH ×2 (09:05→20:54)
[2017-06-08] MEDS: HEPARIN SODIUM - SQ 10,000 UNITS/ML VIAL SQ SCH ×2 (09:05→20:55)
[2017-06-08] MEDS: POTASSIUM CHLORIDE 25 MEQ EFFERVESCENT TAB NG SCH (09:06)
[2017-06-08] MEDS: POLYETHYLENE GLYCOL 17 GM PKG NG SCH ×2 (09:06→20:54)
[2017-06-08] MEDS: FUROSEMIDE 40 MG/4 ML VIAL IV PUSH SCH (09:07)
[2017-06-08] MEDS: CHLORHEXIDINE 0.12% (ORAL KIT) 15 ML CUP MT SCH ×2 (09:09→20:54)
[2017-06-08] MEDS: PROPOFOL 1000 MG/100 ML INJ 100 ML IV PRN ×5 (09:12→22:54)
--- NOTE | 2017-06-08 10:36 | HHI.NPPN ---
Subjective History of Present Illness 36 year old with Aortic dissection ARF Additional Remarks Patient remains intubated Objective Data Data Vital Signs Date Time Temp Pulse Resp B/P (MAP) Pulse Ox O2 Delivery O2 Flow Rate FiO2 06/08/17 08:49 98 65 06/08/17 08:00 65 06/08/17 07:00 97 Mechanical Ventilator 65 06/08/17 07:00 62 06/08/17 07:00 98.5 56 16 128/60 (82) 97 06/08/17 05:25 95 65 06/08/17 04:00 65 06/08/17 03:00 49 06/08/17 03:00 98.1 48 16 122/72 (89) 95 06/08/17 03:00 95 Mechanical Ventilator 65 06/08/17 01:50 97 75 06/08/17 00:00 75 06/07/17 23:25 91 65 06/07/17 23:00 98.0 56 16 122/72 (89) 94 06/07/17 23:00 92 Mechanical Ventilator 75 06/07/17 23:00 53 06/07/17 20:17 94 65 06/07/17 20:00 65 06/07/17 19:00 95 Mechanical Ventilator 65 06/07/17 19:00 97.6 58 16 125/62 (83) 95 06/07/17 19:00 54 06/07/17 16:00 65 06/07/17 15:15 96 65 06/07/17 15:00 94 Mechanical Ventilator 65 06/07/17 15:00 97.8 49 16 140/70 (93) 94 06/07/17 15:00 51 06/07/17 12:06 95 65 06/07/17 12:00 65 06/07/17 11:00 57 06/07/17 11:00 95 Mechanical Ventilator 60 06/07/17 11:00 98.1 54 18 129/62 (84) 95 -: 06/08/17 0400 06/08/17 0400 Physical Exam General Appearance: Well Developed Eyes Eye Exam: Pupils Equal Neck Neck Exam: Neck Supple Pulmonary Resp Exam: Clear Bilaterally Cardiology CV Exam: Regular, Normal Sinus Rhythm Gastrointestinal/Abdomen GI Exam: Soft, Non-Tender Genitourinary Exam: Clear Urine Integumentary Skin Exam: Intact Extremeties Extremities Exam: Moderate Edema, Pitting Edema, Dependent Edema Assessment/Plan Problem List: (1) Acute renal failure ICD Codes: N17.9 - Acute kidney failure, unspecified Plan: He has large dissection of aorta continue to monitor he is passing urine , creatinine he did receive IV contrast repeat CTA Dissection up to Common Iliac arteries seen with true and false lumen perfused Cr 5.6-> 5.7 -> 5.7 -> 5.3 -> 5 -> 4.4 non oliguric, on Lasix . Lasix to 40mg IV q12. will stop as Na 156 getting Intravascular volume depletion K normal stop supplement Patient has good urine out. (2) Dissection of aorta, thoracoabdominal ICD Codes: I71.03 - Dissection of thoracoabdominal aorta Status: Acute Plan: vascular is following Renal arteries remains perfused Roz Flannery MD Jun 08, 2017 10:36
[2017-06-08] MEDS: FREE WATER G-TUBE SCH ×3 (12:45→23:14)
--- NOTE | 2017-06-08 12:46 | HHI.CCPN ---
Subjective Remarks/Hospital Course 05/19: Is a 36-year-old male with a history of hypertension who is on vacation from the [place] area who did not take his antihypertensives today because he is on vacation, and was having sexual intercourse when he had sudden onset of severe substernal radiating to the back chest pain earlier today. 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 He was emergently transferred to [facility] for further management. I evaluated the patient on arrival to the ICU by EVAC. Patient denies abdominal pain. Still endorses chest pain although this is improving. Patient denies any other symptoms. CT chest abdomen pelvis was reviewed and reviewed with myself and Dr. Guzman and does demonstrate a type B dissection. 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 Initial laboratory evidence demonstrates a lactate of 1.3, creatinine 1.2, normal LFTs. 05/20: On home C Pap. Urine output 30 cc/h currently. Remains on esmolol and labetalol drips. Remains drowsy though arousable. +4.4 L 05/21: Resting comfortably on nasal cannula. Awake and alert currently. Denies any shortness of breath or chest pain currently. 05/22: AAO x3, resting comfortably. 05/23 Patient went into PEA arrest early this morning now sedated with Diprivan and intubated. Off Esmolol drip. 05/24 Patient is sedated with Diprivan and intubated. On Labetolol drip. MRI brain yesterday showed multiple small infracts, no hemorrhage. 05/25 Patient remains intubated and sedated. T: 100.5 last night. Renal function is worsening with Cr: 3.6 from 3.4 and UOP: 2650ml in 24 hrs. 05/26 No events overnight. Sedated and intubated. Afebrile. Cr: 3.62 , UOP: 1950ml in 24 hrs 05/27 Patient was extubated yesterday placed on BIPAP overnight. Cr: 3.42 today , UOP: 1800 ml in 24 hrs 05/28 Extubated yesterday and per report was compliant with Bipap overnight Remains on esmolol drip 200 mcg/kg/min and SBP in 140s. ZULY, probable ATN non- oliguric however I>>0 with significant intake from MIVF as well as 180 mL/hr from esmolol drip. IVF d/c per nephrology and transitioning off esmolol to minimize fluid. Hugo now per my discussion with Dr. Thornton. He is tachypneic, obtained ABG with hypercapnea on simple mask. Placing On Bipap. at bedside requesting eventual transfer to [place], though she realized he is not stable for that yet. 05/29: Remains on BiPAP since 299 with increasing respiratory rates. Will attempt a more aggressive diuresis. We started on esmolol drip due to persistent tachycardia and unable to reach target blood pressure and heart rate requirements. At high risk for reintubation. 05/30: Remained hypotensive overnight. This a.m. desaturated, tachypneic requiring high percent on BiPAP hence intubated by manager of community relations. Will require bronchoscopy this afternoon. Continue with aggressive diuresis. Broad antibiotic coverage. Start tube feeding. The systolic blood pressure better controlled while intubated on propofol and fentanyl drips. 05/31: T-max 102.8. Currently 99.6. FiO2 down to 80%. The same noted elevated transaminases AST of 2674. ALT of 1590. Creatinine is increased to 3.07 to 4.36. +2 L past 24 hours. One bowel movement. Noted prior gallbladder wall thickening on previous ultrasound. We will repeat today Subjective 06/01: T-max 102.5. Currently 98.9. Desaturate overnight resolved currently FiO2 of 80%. 4500 cc urine output. Creatinine continues to rise currently 4.9. CPK currently 6165. We will discontinue propofol with hepatomegaly, rhabdomyolysis possibly indicative propofol infusion syndrome. 06/02 Patient remains intubated and sedated. On Fentanyl, Versed and Nimbex. T: 100.0 at midnight. On PC/AC with PEEP:15, FIO2 50% Renal function continue to decline with Cr: 5.40 from 4.91 and UOP: 2895 ml in 24 hrs 06/03 Patient remains intubated and sedated with Versed, Fentanyl drips. Remains on Nimbex and Flolan. Cr: 5.6 from 5.4 with UOP: 3790 ml in 24 hrs. 06/04:Afebrile. Overnight the patient had an episode of hypotension during the and all sedation was briefly discontinued, then resumed for ventilator synchrony. Clonidine dosage decreased. Patient continues on pressure control mode, and Flolan for adequate oxygenation. Creatinine noted to be 5.7 weight urine output 3220cc/24 hrs. 06/05: Afebrile. This x-ray revealed improving area aeration of the right hemithorax. PEEP decreased this a.m. to 12, patient continues on FiO2 55% and Flolan, planned weaning. Electrolytes currently being replaced. Elevated liver enzymes continue to down trend. 06/06: Respiratory requirements decreasing, patient now on Flolan 10 ng/kg/min with FiO2 at 60%, maintaining O2 saturation 92%. Creatinine continues to down trend. Leukocytosis improving. 06/07: Flolan discontinued, FIO2 65%. Propofol added to maintain ventilator synchrony. Patient currently on 10 mg of Versed and 250 mics of fentanyl. Wound care was consulted for skin breakdown on buttocks secondary to multiple bowel movements, patient continues on Avani bed. 06/08: No acute events overnight. Flolan discontinued greater than 18 hours patient's O2 saturation 97% on FiO2 of 65. FiO2 requirements decreased the patient continues on a PEEP of 12. Free water flushes added to medication regimen secondary to hypernatremia, sodium level 156 today. Objective Vital Signs Date Time Temp Pulse Resp B/P (MAP) Pulse Ox O2 Delivery O2 Flow Rate FiO2 06/08/17 12:12 95 65 06/08/17 11:19 58 06/08/17 11:09 Mechanical Ventilator 06/08/17 11:04 97.9 16 136/64 (88) Intake and Output 06/08/17 06/08/17 06/09/17 08:00 16:00 00:00 Intake Total 704 ml Output Total 1350 ml Balance -646 ml Result Diagram: 06/08/17 0400 06/08/17 0400 Imaging Last Impressions Chest X-Ray 06/04/17 0600 Signed Impressions: Service Date/Time: Sunday, June 04, 2017 07:42 - CONCLUSION: Given the degree of hypoinflation the overall lung exam remains stable. The endotracheal tube is positioned 1 cm above the level of the clavicles. Lori Villasenor MD Abdomen X-Ray 06/02/17 0000 Signed Impressions: Service Date/Time: May 10:18 - CONCLUSION: NG tip in stomach. Left basilar airspace disease. Elevated right hemidiaphragm. Bowel gas pattern demonstrates mild ileus Tc Varghese MD Liver Ultrasound 05/31/17 1434 Signed Impressions: Service Date/Time: Wednesday, May 31, 2017 14:40 - CONCLUSION: 1. Interval apparent hepatomegaly with diffusely increased hepatic echogenicity. Given the acuity of findings, findings may reflect acute hepatitis or congestive hepatopathy. 2. Persistently contracted gallbladder which accentuates the gallbladder wall with persistent gallbladder wall thickening and trace pericholecystic fluid. These findings are commonly seen in the setting of liver disease although differential considerations include acalculous cholecystitis. HIDA scan may be performed for better evaluation as clinically appropriate. 3. Andrew Kraft MD Lung Scan-V Nuclear Medicine 05/23/17 0000 Signed Impressions: Service Date/Time: Tuesday, May 23, 2017 10:22 - CONCLUSION: Low probability of pulmonary embolism. Buddy Harrison MD FACR Lower Extremity Ultrasound 05/23/17 0000 Signed Impressions: Service Date/Time: Tuesday, May 23, 2017 08:02 - CONCLUSION: Negative for deep venous thrombosis. Buddy Harrison MD FACR Head CT 05/23/17 0000 Signed Impressions: Service Date/Time: Tuesday, May 23, 2017 03:56 - CONCLUSION: 1. Examination quality is degraded by motion artifact. 2. No definite acute finding is identified. There is a 3 mm punctate area of high density in the left frontal periventricular white matter. This could represent small focus of acute blood products. Suggest attention to this on followup imaging. Wiliam Buck MD Brain MRI 05/23/17 0000 Signed Impressions: Service Date/Time: Tuesday, May 23, 2017 15:59 - CONCLUSION: 1. 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 2. No hemorrhage observe. 3. Pansinus disease. Rudy Cervantes Jr., MD Aorta CTA 05/23/17 0000 Signed Impressions: Service Date/Time: Tuesday, May 23, 2017 03:58 - CONCLUSION: 1. 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 The dissection extends to the abdominal aorta and terminates in the common iliac arteries bilaterally. The abdominal vessels arise from both the true and false lumens and demonstrate good opacification. Suggest correlating with the patient's prior imaging study which documents the dissection. 2. 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 3. There is stranding of the periaortic fat adjacent to the arch aneurysm. 4. There are small bilateral pleural effusions, left larger than right, with bilateral volume loss and/or airspace consolidation bilaterally. Wiliam Buck MD Abdomen Ultrasound 05/23/17 0000 Signed Impressions: Service Date/Time: Tuesday, May 23, 2017 17:22 - CONCLUSION: 1. Gall bladder wall thickening and possible pericholecystic fluid without evidence of gallstones. May consider perform hepatic biliary tract scan to evaluate for acalculous cholecystitis. 2. No focal abnormality seen within the liver. Rudy Pollock MD Last Impressions Chest X-Ray 06/04/17 0600 Signed Impressions: Service Date/Time: Sunday, June 04, 2017 07:42 - CONCLUSION: Given the degree of hypoinflation the overall lung exam remains stable. The endotracheal tube is positioned 1 cm above the level of the clavicles. Lori Villasenor MD Abdomen X-Ray 06/02/17 0000 Signed Impressions: Service Date/Time: May 10:18 - CONCLUSION: NG tip in stomach. Left basilar airspace disease. Elevated right hemidiaphragm. Bowel gas pattern demonstrates mild ileus Tc Varghese MD Liver Ultrasound 05/31/17 1434 Signed Impressions: Service Date/Time: Wednesday, May 31, 2017 14:40 - CONCLUSION: 1. Interval apparent hepatomegaly with diffusely increased hepatic echogenicity. Given the acuity of findings, findings may reflect acute hepatitis or congestive hepatopathy. 2. Persistently contracted gallbladder which accentuates the gallbladder wall with persistent gallbladder wall thickening and trace pericholecystic fluid. These findings are commonly seen in the setting of liver disease although differential considerations include acalculous cholecystitis. HIDA scan may be performed for better evaluation as clinically appropriate. 3. Andrew Kraft MD Lung Scan- Nuclear Medicine 05/23/17 0000 Signed Impressions: Service Date/Time: Tuesday, May 23, 2017 10:22 - CONCLUSION: Low probability of pulmonary embolism. Buddy Harrison MD FACR Lower Extremity Ultrasound 05/23/17 Signed Impressions: Service Date/Time: Tuesday, May 23, 2017 08:02 - CONCLUSION: Negative for deep venous thrombosis. Buddy Harrison MD FACR Head CT 05/23/17 0000 Signed Impressions: Service Date/Time: Tuesday, May 23, 2017 03:56 - CONCLUSION: 1. Examination quality is degraded by motion artifact. 2. No definite acute finding is identified. There is a 3 mm punctate area of high density in the left frontal periventricular white matter. This could represent small focus of acute blood products. Suggest attention to this on followup imaging. Wiliam Buck MD Brain MRI 05/23/17 Signed Impressions: Service Date/Time: Tuesday, May 23, 2017 15:59 - CONCLUSION: 1. 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 2. No hemorrhage observe. 3. Pansinus disease. Rudy Cervantes Jr., MD Aorta CTA 05/23/17 Signed Impressions: Service Date/Time: Tuesday, May 23, 2017 03:58 - CONCLUSION: 1. 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 The dissection extends to the abdominal aorta and terminates in the common iliac arteries bilaterally. The abdominal vessels arise from both the true and false lumens and demonstrate good opacification. Suggest correlating with the patient's prior imaging study which documents the dissection. 2. 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 3. There is stranding of the periaortic fat adjacent to the arch aneurysm. 4. There are small bilateral pleural effusions, left larger than right, with bilateral volume loss and/or airspace consolidation bilaterally. Wiliam Buck MD Abdomen Ultrasound 05/23/17 0000 Signed Impressions: Service Date/Time: Tuesday, May 23, 2017 17:22 - CONCLUSION: 1. Gall bladder wall thickening and possible pericholecystic fluid without evidence of gallstones. May consider perform hepatic biliary tract scan to evaluate for acalculous cholecystitis. 2. No focal abnormality seen within the liver. Rudy Pollock MD Last Impressions Chest X-Ray 06/04/17 0600 Signed Impressions: Service Date/Time: Sunday, June 04, 2017 07:42 - CONCLUSION: Given the degree of hypoinflation the overall lung exam remains stable. The endotracheal tube is positioned 1 cm above the level of the clavicles. Lori Villasenor MD Abdomen X-Ray 06/02/17 0000 Signed Impressions: Service Date/Time: May 10:18 - CONCLUSION: NG tip in stomach. Left basilar airspace disease. Elevated right hemidiaphragm. Bowel gas pattern demonstrates mild ileus Tc Varghese MD Liver Ultrasound 05/31/17 1434 Signed Impressions: Service Date/Time: Wednesday, May 31, 2017 14:40 - CONCLUSION: 1. Interval apparent hepatomegaly with diffusely increased hepatic echogenicity. Given the acuity of findings, findings may reflect acute hepatitis or congestive hepatopathy. 2. Persistently contracted gallbladder which accentuates the gallbladder wall with persistent gallbladder wall thickening and trace pericholecystic fluid. These findings are commonly seen in the setting of liver disease although differential considerations include acalculous cholecystitis. HIDA scan may be performed for better evaluation as clinically appropriate. 3. Andrew Kraft MD Lung Scan-V Nuclear Medicine 05/23/17 0000 Signed Impressions: Service Date/Time: Tuesday, May 23, 2017 10:22 - CONCLUSION: Low probability of pulmonary embolism. Buddy Harrison MD FACR Lower Extremity Ultrasound 05/23/17 0000 Signed Impressions: Service Date/Time: Tuesday, May 23, 2017 08:02 - CONCLUSION: Negative for deep venous thrombosis. Buddy Harrison MD FACR Head CT 05/23/17 0000 Signed Impressions: Service Date/Time: Tuesday, May 23, 2017 03:56 - CONCLUSION: 1. Examination quality is degraded by motion artifact. 2. No definite acute finding is identified. There is a 3 mm punctate area of high density in the left frontal periventricular white matter. This could represent small focus of acute blood products. Suggest attention to this on followup imaging. Wiliam Buck MD Brain MRI 05/23/17 0000 Signed Impressions: Service Date/Time: Tuesday, May 23, 2017 15:59 - CONCLUSION: 1. 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 2. No hemorrhage observe. 3. Pansinus disease. Rudy Cervantes Jr., MD Aorta CTA 05/23/17 0000 Signed Impressions: Service Date/Time: Tuesday, May 23, 2017 03:58 - CONCLUSION: 1. 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 The dissection extends to the abdominal aorta and terminates in the common iliac arteries bilaterally. The abdominal vessels arise from both the true and false lumens and demonstrate good opacification. Suggest correlating with the patient's prior imaging study which documents the dissection. 2. 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 3. There is stranding of the periaortic fat adjacent to the arch aneurysm. 4. There are small bilateral pleural effusions, left larger than right, with bilateral volume loss and/or airspace consolidation bilaterally. Wiliam Buck MD Abdomen Ultrasound 05/23/17 0000 Signed Impressions: Service Date/Time: Tuesday, May 23, 2017 17:22 - CONCLUSION: 1. Gall bladder wall thickening and possible pericholecystic fluid without evidence of gallstones. May consider perform hepatic biliary tract scan to evaluate for acalculous cholecystitis. 2. No focal abnormality seen within the liver. Rudy Pollock MD Last Impressions Chest X-Ray 06/03/17 0600 Signed Impressions: Service Date/Time: Saturday, June 03, 2017 04:16 - CONCLUSION: 1. Interval complete opacification of the right upper lobe. 2. Stable left basilar consolidation/effusion and stable patchy airspace disease medially in the right lower lung field. 3. Stable position of life support tubes. Rodrigue Miller MD Abdomen X-Ray 06/02/17 0000 Signed Impressions: Service Date/Time: May 10:18 - CONCLUSION: NG tip in stomach. Left basilar airspace disease. Elevated right hemidiaphragm. Bowel gas pattern demonstrates mild ileus Tc Varghese MD Liver Ultrasound 05/31/17 1434 Signed Impressions: Service Date/Time: Wednesday, May 31, 2017 14:40 - CONCLUSION: 1. Interval apparent hepatomegaly with diffusely increased hepatic echogenicity. Given the acuity of findings, findings may reflect acute hepatitis or congestive hepatopathy. 2. Persistently contracted gallbladder which accentuates the gallbladder wall with persistent gallbladder wall thickening and trace pericholecystic fluid. These findings are commonly seen in the setting of liver disease although differential considerations include acalculous cholecystitis. HIDA scan may be performed for better evaluation as clinically appropriate. 3. Andrew Kraft MD Lung Scan-VQ Nuclear Medicine 05/23/17 Signed Impressions: Service Date/Time: Tuesday, May 23, 2017 10:22 - CONCLUSION: Low probability of pulmonary embolism. Buddy Harrison MD FACR Lower Extremity Ultrasound 05/23/17 Signed Impressions: Service Date/Time: Tuesday, May 23, 2017 08:02 - CONCLUSION: Negative for deep venous thrombosis. Buddy Harrison MD FACR Head CT 05/23/17 Signed Impressions: Service Date/Time: Tuesday, May 23, 2017 03:56 - CONCLUSION: 1. Examination quality is degraded by motion artifact. 2. No definite acute finding is identified. There is a 3 mm punctate area of high density in the left frontal periventricular white matter. This could represent small focus of acute blood products. Suggest attention to this on followup imaging. Wiliam Buck MD Brain MRI 05/23/17 Signed Impressions: Service Date/Time: Tuesday, May 23, 2017 15:59 - CONCLUSION: 1. 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 2. No hemorrhage observe. 3. Pansinus disease. Rudy Cervantes Jr., MD Aorta CTA 05/23/17 Signed Impressions: Service Date/Time: Tuesday, May 23, 2017 03:58 - CONCLUSION: 1. 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 The dissection extends to the abdominal aorta and terminates in the common iliac arteries bilaterally. The abdominal vessels arise from both the true and false lumens and demonstrate good opacification. Suggest correlating with the patient's prior imaging study which documents the dissection. 2. 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 3. There is stranding of the periaortic fat adjacent to the arch aneurysm. 4. There are small bilateral pleural effusions, left larger than right, with bilateral volume loss and/or airspace consolidation bilaterally. Wiliam Buck MD Abdomen Ultrasound 05/23/17 0000 Signed Impressions: Service Date/Time: Tuesday, May 23, 2017 17:22 - CONCLUSION: 1. Gall bladder wall thickening and possible pericholecystic fluid without evidence of gallstones. May consider perform hepatic biliary tract scan to evaluate for acalculous cholecystitis. 2. No focal abnormality seen within the liver. Rudy Pollock MD Objective Remarks GENERAL: This is a 36-year-old well-developed well-nourished AA male resting in bed orotracheally intubated, and sedated SKIN: Warm and dry, adequately perfused. HEAD: Normocephalic. EYES: Pupils 3 mm and reactive. No scleral icterus. No injection or drainage. NECK: Supple, trachea midline. No JVD or lymphadenopathy. Left IJ CVL is clean dry and intact CARDIOVASCULAR: Distant. RRR. S1, S2 no S4. Cannot appreciate murmurs, clicks , gallops or rubs RESPIRATORY: Coarse rhonchorous crackles noted throughout all lung [place] anterior-posterior bilaterally. No wheezing GASTROINTESTINAL: Abdomen soft, non-tender, nondistended. Hypoactive bowel sounds are appreciated MUSCULOSKELETAL: No cyanosis. Edema 2+ bilateral upper and lower extremities NEURO: Currently sedated on Versed, propofol and fentanyl drips. Positive gag and corneal reflex. Positive cough. 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 On Fentanyl, Versed, Propofol infusion to maintain ventilator synchrony. Propofol added to maintain ventilator synchrony Goal of RASS -2 Daily sedation vacation when appropriate Acetaminophen 650 mg by tube every 6 hours as needed fever discontinued due to elevated transaminases Evaluated by neurology/Dr. Espinosa MRI brain 05/23 revealed bilateral frontal embolic CVA CT brain: There is a 3 mm punctate area of high density in the left frontal periventricular white matter. This could represent small focus of acute blood products. EEG : Mild diffuse encephalopathy, no seizure activity Continue aspirin 162 mg p.o. daily. Okayed with neurology. CV: Hypertensive emergency Acute type B aortic dissection Elevated troponin PEA cardiac arrest 05/23/17, secondary to obstructive sleep apnea/obesity hypoventilation syndrome with Bipap nonadherence. CTA stable. VQ scan negative . Hyperlipidemia Monitor HR and BP keep MAP>65mmHg Currently on carvedilol 25 mg twice daily Diltiazem 90 mg every 6 hours 06/04 Decreased Clonidine from 0.3 to 0.1 mg every 8 hours Repeat echo 05/23: EF 60-65%, no RWMA Evaluated by cardiology, Dr. Bhakta on 05/24 due to troponin elevation. He attributed elevated troponin to PEA arrest, hypoxia, renal insufficiency. No further ischemic workup planned at this time. 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 The dissection extends to the abdominal aorta and terminates in the common iliac arteries bilaterally. The abdominal vessels arise from both the true and false lumens and demonstrate good opacification. Vascular surgery is following- Dr. Thomas Tohmas: Obstructive sleep apnea Obesity hypoventilation syndrome Acute hypercapnic respiratory failure intubated 05/30 Ventilator dependent respiratory failure PC/ACIP:25, IT:1.9, PEEP:12, FIO2 55%, decrease FIO2 as kell. Ventilator bundle Bronchodilators, Duoneb Q4, add Mucomyst nebs On Flolan nebs decreased to 10ng/kg/min FIO2 .60- discontinue 06/07 at 1800. Continue to wean FiO2 to 50% Continue solumederol 60mg Q8hr V/Q scan: low prob PE CXR 06/05- improving area right hemothorax with persistent left basilar consolidation/effusion and stable patchy airspace disease s/p bronch today showed mucous plugs/ thick secretions b/l, normal mucosa, no evidence of EBL, BAL performed RUL. Status post bronchoscopy 05/30 revealed no mucus plugging. Normal bronchial mucosa without lesions. No signs of bleeding. LEN negative Renal/: Nonoliguric acute kidney injury Rhabdo Electrolyte derangement Likely secondary to ischemic ATN following cardiac arrest. Furosemide 40 mg IV every 8 hours Cr: 5.3 -> 4.46 - UOP 3100 cc/24 hrs Renal is following- Dr. Flannery abdomen: No hydronephrosis. Hypernatremia- Begin free H20 flushes 200 cc q 6 hr GI: Elevated transaminases Hypoalbuminemia Hyperammonia Patient had 3 BM',Nepro @ 35ml/hr-no residuals Famotidine 20 mg by tube daily for GI prophylaxis written to switch to 10 mg twice daily by pharmacy Docusate/senna 1 tablet twice daily, polyethylene glycol 17 g twice daily and lactulose 30 cc twice daily for bowel regimen. Monitor LFT's (trending down),Hep profile is negative Abdominal ultrasound 05/31 -[place] hepatic congestion. Contracted gallbladder with pericholecystic fluid. Possible acalculous cholecystitis recommend HIDA scan if clinically able. US abdomen: Gall bladder wall thickening and possible pericholecystic fluid without evidence of gallstones. Recommend HIDA scan if clinically indicated Lactulose 30 cc 4 times daily. 06/05 ammonia level 17 GI following Heme: Persistent Leukocytosis Microcytic anemia Monitor CBC VQ scan negative 05/23 BLE u/s negative for DVT 05/23 ID: MSSA pneumonia Bandemia On ceftriaxone 05/25- Previously on Zosyn 05/23-05/25. Continued on Zosyn, Vanc discontinued Monitor for signs of infections ( Fever, WBC) ID is following- Pertinent: 06/01 -sputum -pending 05/31/13 -blood cultures 2 -pending 05/30 -bronchoscopy -no growth 05/30 -sputum -rare WBC/budding yeast 05/30 -blood cultures 2 -pending 05/25 -blood cultures 2 -no growth to date 05/25 -urine culture -no growth to date 05/23 -sputum -MSSA 05/23 -blood cultures 2 -no growth to date Endo: Currently on sliding scale insulin NovUlin R medium regimen every 6 hours sliding scale. TSH 2.3 MSK: Elevated BMI Weight loss encouraged PROPH: SCDs /Heparin subcut q 12 hours for DVT prophylaxis. (Previous manager of community relations documented discussion with Dr. Guzman who would be amenable to anticoagulation if felt to be indicated for stroke, Dr. Espinosa states currently recommends ASA at this time. ). ACCESS R IJ CVL 05/23- 05/31 Left IJ CVL placed 05/31 Radial arterial line placed 05/31 by respiratory therapy- d/c'd 06/06 Critical Care: my billing statement This patient remains critically ill with one or more organ systems which are or may become a threat to life. I have spent in excess of 37 minutes discontinuously in the care and management of this patient. This time is exclusive of procedures, and includes, but is not limited to, evaluation of the patient, review of the medical record, discussions with family, consultants, nursing staff, or respiratory therapy, and documentation in the medical record. Physician Yanely Paul MD Jun 08, 2017 12:46
--- NOTE | 2017-06-08 13:51 | HHI.IDPN ---
Subjective Subjective Remarks still weaning issues still requires heavy sedation afebrile WBC down to 11-12 K clx remain negative creatinine slowly improving 06/08 CXR with new infiltrate Antibiotics cefepime Allergies: Coded Allergies: No Known Allergies (Unverified , 05/19/17) Objective . Vital Signs Date Time Temp Pulse Resp B/P (MAP) Pulse Ox O2 Delivery O2 Flow Rate FiO2 06/08/17 12:12 95 65 06/08/17 12:03 60 06/08/17 11:19 58 06/08/17 11:09 98 Mechanical Ventilator 65 06/08/17 11:04 97.9 55 16 136/64 (88) 97 06/08/17 08:49 98 65 06/08/17 08:00 65 06/08/17 07:00 97 Mechanical Ventilator 65 06/08/17 07:00 62 06/08/17 07:00 98.5 56 16 128/60 (82) 97 06/08/17 05:25 95 65 06/08/17 04:00 65 06/08/17 03:00 49 06/08/17 03:00 98.1 48 16 122/72 (89) 95 06/08/17 03:00 95 Mechanical Ventilator 65 06/08/17 01:50 97 75 06/08/17 00:00 75 06/07/17 23:25 91 65 06/07/17 23:00 98.0 56 16 122/72 (89) 94 06/07/17 23:00 92 Mechanical Ventilator 75 06/07/17 23:00 53 06/07/17 20:17 94 65 06/07/17 20:00 65 06/07/17 19:00 95 Mechanical Ventilator 65 06/07/17 19:00 97.6 58 16 125/62 (83) 95 06/07/17 19:00 54 06/07/17 16:00 65 06/07/17 15:15 96 65 06/07/17 15:00 94 Mechanical Ventilator 65 06/07/17 15:00 97.8 49 16 140/70 (93) 94 06/07/17 15:00 51 . Laboratory Tests Test 06/07/17 04:00 06/08/17 04:00 White Blood Count 11.8 TH/MM3 12.2 TH/MM3 Red Blood Count 3.68 MIL/MM3 3.54 MIL/MM3 Hemoglobin 9.7 GM/DL 9.4 GM/DL Hematocrit 29.7 % 28.4 % Mean Corpuscular Volume 80.5 FL 80.4 FL Mean Corpuscular Hemoglobin 26.2 PG 26.5 PG Mean Corpuscular Hemoglobin Concent 32.6 % 32.9 % Red Cell Distribution Width 16.4 % 16.8 % Platelet Count 356 TH/MM3 339 TH/MM3 Mean Platelet Volume 8.8 FL 9.0 FL Neutrophils (%) (Auto) 79.1 % Lymphocytes (%) (Auto) 9.8 % Monocytes (%) (Auto) 10.9 % Eosinophils (%) (Auto) 0.0 % Basophils (%) (Auto) 0.2 % Neutrophils # (Auto) 9.3 TH/MM3 Lymphocytes # (Auto) 1.2 TH/MM3 Monocytes # (Auto) 1.3 TH/MM3 Eosinophils # (Auto) 0.0 TH/MM3 Basophils # (Auto) 0.0 TH/MM3 CBC Comment AUTO DIFF Differential Comment AUTO DIFF CONFIRMED Laboratory Tests Test 06/07/17 04:00 06/08/17 04:00 Blood Urea Nitrogen 114 MG/DL 133 MG/DL Creatinine 5.02 MG/DL 4.46 MG/DL Random Glucose 185 MG/DL 199 MG/DL Total Protein 7.1 GM/DL Albumin 2.0 GM/DL Calcium Level 8.3 MG/DL 8.2 MG/DL Phosphorus Level 3.5 MG/DL 3.9 MG/DL Magnesium Level 2.3 MG/DL 2.3 MG/DL Alkaline Phosphatase 99 U/L Aspartate Amino Transf (AST/SGOT) 80 U/L Alanine Aminotransferase (ALT/SGPT) 451 U/L Total Bilirubin 0.8 MG/DL Sodium Level 154 MEQ/L 156 MEQ/L Potassium Level 3.2 MEQ/L 3.6 MEQ/L Chloride Level 112 MEQ/L 115 MEQ/L Carbon Dioxide Level 31.0 MEQ/L 33.1 MEQ/L Anion Gap 11 MEQ/L 8 MEQ/L Estimat Glomerular Filtration Rate 16 ML/MIN 18 ML/MIN Imaging Last Impressions Chest X-Ray 06/08/17 0600 Signed Impressions: Service Date/Time: Thursday, June 08, 2017 03:27 - CONCLUSION: Persistent left lower lobe consolidation. New partially consolidated right lower lung infiltrates. Rudy Pollock MD Abdomen X-Ray 06/02/17 0000 Signed Impressions: Service Date/Time: May 10:18 - CONCLUSION: NG tip in stomach. Left basilar airspace disease. Elevated right hemidiaphragm. Bowel gas pattern demonstrates mild ileus Tc Varghese MD Liver Ultrasound 05/31/17 1434 Signed Impressions: Service Date/Time: Wednesday, May 31, 2017 14:40 - CONCLUSION: 1. Interval apparent hepatomegaly with diffusely increased hepatic echogenicity. Given the acuity of findings, findings may reflect acute hepatitis or congestive hepatopathy. 2. Persistently contracted gallbladder which accentuates the gallbladder wall with persistent gallbladder wall thickening and trace pericholecystic fluid. These findings are commonly seen in the setting of liver disease although differential considerations include acalculous cholecystitis. HIDA scan may be performed for better evaluation as clinically appropriate. 3. Andrew Kraft MD Lung Scan-VQ Nuclear Medicine 05/23/17 0000 Signed Impressions: Service Date/Time: Tuesday, May 23, 2017 10:22 - CONCLUSION: Low probability of pulmonary embolism. Buddy Harrison MD FACR Lower Extremity Ultrasound 05/23/17 0000 Signed Impressions: Service Date/Time: Tuesday, May 23, 2017 08:02 - CONCLUSION: Negative for deep venous thrombosis. Buddy Harrison MD FACR Head CT 05/23/17 0000 Signed Impressions: Service Date/Time: Tuesday, May 23, 2017 03:56 - CONCLUSION: 1. Examination quality is degraded by motion artifact. 2. No definite acute finding is identified. There is a 3 mm punctate area of high density in the left frontal periventricular white matter. This could represent small focus of acute blood products. Suggest attention to this on followup imaging. Wiliam Buck MD Brain MRI 05/23/17 0000 Signed Impressions: Service Date/Time: Tuesday, May 23, 2017 15:59 - CONCLUSION: 1. 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 2. No hemorrhage observe. 3. Pansinus disease. Rudy Cervantes Jr., MD Aorta CTA 05/23/17 0000 Signed Impressions: Service Date/Time: Tuesday, May 23, 2017 03:58 - CONCLUSION: 1. 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 The dissection extends to the abdominal aorta and terminates in the common iliac arteries bilaterally. The abdominal vessels arise from both the true and false lumens and demonstrate good opacification. Suggest correlating with the patient's prior imaging study which documents the dissection. 2. 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 3. There is stranding of the periaortic fat adjacent to the arch aneurysm. 4. There are small bilateral pleural effusions, left larger than right, with bilateral volume loss and/or airspace consolidation bilaterally. Wiliam Buck MD Abdomen Ultrasound 05/23/17 0000 Signed Impressions: Service Date/Time: Tuesday, May 23, 2017 17:22 - CONCLUSION: 1. Gall bladder wall thickening and possible pericholecystic fluid without evidence of gallstones. May consider perform hepatic biliary tract scan to evaluate for acalculous cholecystitis. 2. No focal abnormality seen within the liver. Rudy Pollock MD Physical Exam CONSTITUTIONAL/GENERAL: This is an adequately nourished patient, sedated int'd on vent TUBES/LINES/DRAINS: SKIN: No jaundice, rashes, or lesions. Skin temperature appropriate. Not diaphoretic. EYES: Pupils equal and round and reactive. Extraocular motions intact. No scleral icterus. No injection or drainage. Fundi not examined. CARDIOVASCULAR: Regular rate and rhythm without murmurs, gallops, or rubs. No JVD. Peripheral pulses symmetric. RESPIRATORY/CHEST: Symmetric, unlabored respirations. few scattered rhonchi to auscultation. Breath sounds equal bilaterally. GASTROINTESTINAL: Abdomen soft, non-tender, nondistended. No hepato-splenomegaly , or palpable masses. No guarding. Bowel sounds present. GENITOURINARY: Without palpable bladder distension. Ledesma catheter in place with very light yellow urine MUSCULOSKELETAL: Extremities without clubbing, cyanosis, still promient edema, 3+, less tight No mottling or clubbing. NEUROLOGICAL: sedated heavily, unrespomsive per RN moves all 4 extremeies spontaneously PSYCHIATRIC: unable to assess Assessment & Plan Remarks Type B AAA dissection PNA, clx negative, but BAL cw PNA, 24 K WBC growing budding yeast from BAL - doubt clin significance New pulmonary infiltrate Acute VDRF - failure to wean Non oliguric ARF Fever -resolved Leukocytosis, bandemia - improving to some degree leukocytosis is probably 2/2 sterroids; wont expect bancdemis 2/2 it however bands are less Abx associated ileus , diarrhea - c.diff negative cont cefepime for now repeat sputum clx Discussed Condition With Nalini Bliss MD Jun 08, 2017 13:51
[2017-06-08] MEDS: CEFEPIME INJ 2,000 MG in SODIUM CHLORIDE 0.9% INJ 100 ML IV SCH (17:59)
[2017-06-08] MEDS: METOPROLOL TARTRATE 5 MG/5 ML VIAL IV PUSH PRN (23:48)
[2017-06-09] VITALS (12 sets, daily range): BP systolic 120–139; BP diastolic 56–64; PULSE 72–75; RESP 0–16; TEMP 97.4–98.3; O2SAT 90–96
[2017-06-09] MEDS: LABETALOL HCL 100 MG/20 ML VIAL IV PUSH PRN ×3 (00:03→14:31)
[2017-06-09] MEDS: METOPROLOL TARTRATE 5 MG/5 ML VIAL IV PUSH PRN ×5 (00:55→18:43)
[2017-06-09] MEDS: fentaNYL DRIP 250 ML IV PRN ×2 (01:00→11:49)
[2017-06-09] MEDS: PROPOFOL 1000 MG/100 ML INJ 100 ML IV PRN ×8 (01:35→21:30)
[2017-06-09] MEDS: MIDAZOLAM 100 MG/100 ML INJ 100 ML IV PRN ×2 (03:02→18:43)
[2017-06-09] MEDS: CHLORHEXIDINE GLUCONATE 2 % 1 PACK (2 CLOTHS) TOP SCH (04:00)
[2017-06-09] MEDS: ARTIFICIAL TEARS OPTH SOLN 15 ML BTL EACH EYE SCH ×3 (05:06→22:00)
[2017-06-09] MEDS: methylPREDNISolone SOD SUCC 40 MG/1 ML VIAL IV PUSH SCH (05:06)
[2017-06-09] MEDS: FREE WATER G-TUBE SCH ×3 (05:06→18:00)
[2017-06-09] MEDS: LACTULOSE SYRUP 20 GM/30 ML CUP OG-TUBE SCH ×3 (05:07→18:00)
[2017-06-09] MEDS: cloNIDine HCL 0.1 MG TAB PO SCH ×2 (05:07→14:18)
[2017-06-09] MEDS: hydrALAZINE HCL 20 MG/ML VIAL IV PUSH PRN ×3 (05:07→18:43)
[2017-06-09] MEDS: DILTIAZEM HCL 90 MG TAB PO SCH ×3 (05:07→18:25)
[2017-06-09] MEDS: INSULIN NovoLIN REGULAR SUPPLEMENTAL SCALE SQ SCH ×3 (05:16→18:26)
--- NOTE | 2017-06-09 06:21 | RADRPT ---
EXAM DATE/TIME: 06/09/2017 04:31 [facility] COMPARISON: CHEST SINGLE AP, June 08, 2017, 3:27. INDICATIONS : Shortness of breath, possible pulmonary disease. MEDICAL HISTORY : Hypertension. Aortic dissection SURGICAL HISTORY : None. ENCOUNTER: Subsequent ACUITY: 2 weeks PAIN SCORE: Non-responsive. LOCATION: Bilateral chest FINDINGS: ET tube tip above the julee. Gastric tube tip and side-port project within the stomach. Left IJ ca theter tip at the origin of the superior vena cava. Persistent left lower lobe consolidation with lo ss of delineation entire left hemidiaphragm. Ill-defined consolidation in the central and inferior r ight lower lung. CONCLUSION: Persistent bilateral lower lobe consolidation, left greater than right. Rudy Pollock MD on June 09, 2017 at 6:18 Board Certified Radiologist. This report was verified electronically.
[2017-06-09 07:08] LABS: AUTOMATED NEUTROPHIL # 9.7 TH/MM3 (1.8-7.7); BASOPHIL % 0.2 % (0.0-2.0); HEMATOCRIT 27.7 % (39.0-51.0); LYMPH % 8.4 % (9.0-44.0); MEAN CELL VOLUME 81.8 FL (80.0-100.0); MEAN CORPUSCULAR HEMOGLOBIN 26.8 PG (27.0-34.0); MEAN CORPUSCULAR HGB CONC 32.7 % (32.0-36.0); MONO % 7.8 % (0.0-8.0); MONOCYTE # 0.9 TH/MM3 (0-0.9); NEUT % 83.6 % (16.0-70.0); PLATELET COUNT 316 TH/MM3 (150-450); RED BLOOD COUNT 3.38 MIL/MM3 (4.50-5.90); RED CELL DISTRIBUTION WIDTH 16.8 % (11.6-17.2); WHITE BLOOD COUNT 11.6 TH/MM3 (4.0-11.0)
[2017-06-09 07:48] LABS: CALCIUM 7.9 MG/DL (8.5-10.1); CREATININE 3.94 MG/DL (0.60-1.30)
[2017-06-09] MEDS: POLYETHYLENE GLYCOL 17 GM PKG NG SCH ×2 (09:00→21:00)
[2017-06-09] MEDS: DOCUSATE SODIUM 50 MG/SENNA 8.6 MG TAB PO SCH ×2 (09:00→21:00)
[2017-06-09] MEDS: ASPIRIN 81 MG CHEW TAB CHEW SCH (09:11)
[2017-06-09] MEDS: FAMOTIDINE 20 MG/2 ML VIAL IV PUSH SCH ×2 (09:12→21:00)
[2017-06-09] MEDS: HEPARIN SODIUM - SQ 10,000 UNITS/ML VIAL SQ SCH ×2 (09:12→21:00)
[2017-06-09] MEDS: CARVEDILOL 12.5 MG TAB PO SCH (09:12)
[2017-06-09] MEDS: SODIUM CHLORIDE 0.9% FLUSH 10 ML FLUSH IV FLUSH SCH (09:15)
[2017-06-09] MEDS: CHLORHEXIDINE 0.12% (ORAL KIT) 15 ML CUP MT SCH ×2 (10:40→20:00)
--- NOTE | 2017-06-09 12:32 | HHI.CCPN ---
Subjective Remarks/Hospital Course 05/19: Is a 36-year-old male with a history of hypertension who is on vacation from the [place] area who did not take his antihypertensives today because he is on vacation, and was having sexual intercourse when he had sudden onset of severe substernal radiating to the back chest pain earlier today. 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 He was emergently transferred to [facility] for further management. I evaluated the patient on arrival to the ICU by EVAC. Patient denies abdominal pain. Still endorses chest pain although this is improving. Patient denies any other symptoms. CT chest abdomen pelvis was reviewed and reviewed with myself and Dr. Guzman and does demonstrate a type B dissection. 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 Initial laboratory evidence demonstrates a lactate of 1.3, creatinine 1.2, normal LFTs. 05/20: On home C Pap. Urine output 30 cc/h currently. Remains on esmolol and labetalol drips. Remains drowsy though arousable. +4.4 L 05/21: Resting comfortably on nasal cannula. Awake and alert currently. Denies any shortness of breath or chest pain currently. 05/22: AAO x3, resting comfortably. 05/23 Patient went into PEA arrest early this morning now sedated with Diprivan and intubated. Off Esmolol drip. 05/24 Patient is sedated with Diprivan and intubated. On Labetolol drip. MRI brain yesterday showed multiple small infracts, no hemorrhage. 05/25 Patient remains intubated and sedated. T: 100.5 last night. Renal function is worsening with Cr: 3.6 from 3.4 and UOP: 2650ml in 24 hrs. 05/26 No events overnight. Sedated and intubated. Afebrile. Cr: 3.62 , UOP: 1950ml in 24 hrs 05/27 Patient was extubated yesterday placed on BIPAP overnight. Cr: 3.42 today , UOP: 1800 ml in 24 hrs 05/28 Extubated yesterday and per report was compliant with Bipap overnight Remains on esmolol drip 200 mcg/kg/min and SBP in 140s. ZULY, probable ATN non- oliguric however I>>0 with significant intake from MIVF as well as 180 mL/hr from esmolol drip. IVF d/c per nephrology and transitioning off esmolol to minimize fluid. Hugo now per my discussion with Dr. Thornton. He is tachypneic, obtained ABG with hypercapnea on simple mask. Placing On Bipap. at bedside requesting eventual transfer to [place], though she realized he is not stable for that yet. 05/29: Remains on BiPAP since 299 with increasing respiratory rates. Will attempt a more aggressive diuresis. We started on esmolol drip due to persistent tachycardia and unable to reach target blood pressure and heart rate requirements. At high risk for reintubation. 05/30: Remained hypotensive overnight. This a.m. desaturated, tachypneic requiring high percent on BiPAP hence intubated by [employer]. Will require bronchoscopy this afternoon. Continue with aggressive diuresis. Broad antibiotic coverage. Start tube feeding. The systolic blood pressure better controlled while intubated on propofol and fentanyl drips. 05/31: T-max 102.8. Currently 99.6. FiO2 down to 80%. The same noted elevated transaminases AST of 2674. ALT of 1590. Creatinine is increased to 3.07 to 4.36. +2 L past 24 hours. One bowel movement. Noted prior gallbladder wall thickening on previous ultrasound. We will repeat today Subjective 06/01: T-max 102.5. Currently 98.9. Desaturate overnight resolved currently FiO2 of 80%. 4500 cc urine output. Creatinine continues to rise currently 4.9. CPK currently 6165. We will discontinue propofol with hepatomegaly, rhabdomyolysis possibly indicative propofol infusion syndrome. 06/02 Patient remains intubated and sedated. On Fentanyl, Versed and Nimbex. T: 100.0 at midnight. On PC/AC with PEEP:15, FIO2 50% Renal function continue to decline with Cr: 5.40 from 4.91 and UOP: 2895 ml in 24 hrs 06/03 Patient remains intubated and sedated with Versed, Fentanyl drips. Remains on Nimbex and Flolan. Cr: 5.6 from 5.4 with UOP: 3790 ml in 24 hrs. 06/04:Afebrile. Overnight the patient had an episode of hypotension during the and all sedation was briefly discontinued, then resumed for ventilator synchrony. Clonidine dosage decreased. Patient continues on pressure control mode, and Flolan for adequate oxygenation. Creatinine noted to be 5.7 weight urine output 3220cc/24 hrs. 06/05: Afebrile. This x-ray revealed improving area aeration of the right hemithorax. PEEP decreased this a.m. to 12, patient continues on FiO2 55% and Flolan, planned weaning. Electrolytes currently being replaced. Elevated liver enzymes continue to down trend. 06/06: Respiratory requirements decreasing, patient now on Flolan 10 ng/kg/min with FiO2 at 60%, maintaining O2 saturation 92%. Creatinine continues to down trend. Leukocytosis improving. 06/07: Flolan discontinued, FIO2 65%. Propofol added to maintain ventilator synchrony. Patient currently on 10 mg of Versed and 250 mics of fentanyl. Wound care was consulted for skin breakdown on buttocks secondary to multiple bowel movements, patient continues on Avani bed. 06/08: No acute events overnight. Flolan discontinued greater than 18 hours patient's O2 saturation 97% on FiO2 of 65. FiO2 requirements decreased the patient continues on a PEEP of 12. Free water flushes added to medication regimen secondary to hypernatremia, sodium level 156 today. 06/09 Patient remains sedated and intubated. Afebrile. Objective Vital Signs Date Time Temp Pulse Resp B/P (MAP) Pulse Ox O2 Delivery O2 Flow Rate FiO2 06/09/17 11:39 92 50 06/09/17 07:00 Mechanical Ventilator 8.00 06/09/17 07:00 97.4 74 0 133/62 (85) Intake and Output 06/09/17 06/09/17 06/10/17 08:00 16:00 00:00 Intake Total 550 ml Output Total 1200 ml Balance -650 ml Result Diagram: 06/09/17 0630 06/09/17 0630 Other Results Laboratory Tests Test 06/09/17 05:40 06/09/17 06:30 Blood Gas Puncture Site LT RADIAL Blood Gas Patient Temperature 98.6 Blood Gas HCO3 28 mmol/L Blood Gas Base Excess 2.5 mmol/L Blood Gas Oxygen Saturation 89 % Arterial Blood pH 7.36 Arterial Blood Partial Pressure CO2 50 mmHg Arterial Blood Partial Pressure O2 69 mmHg Arterial Blood Oxygen Content 11.8 Vol % Arterial Blood Carboxyhemoglobin 0.8 % Arterial Blood Methemoglobin 1.6 % Blood Gas Hemoglobin 9.4 G/DL Oxygen Delivery Device VENTILATOR Blood Gas Ventilator Setting SEE COMMENT Blood Gas Inspired Oxygen 60 % White Blood Count 11.6 TH/MM3 Red Blood Count 3.38 MIL/MM3 Hemoglobin 9.0 GM/DL Hematocrit 27.7 % Mean Corpuscular Volume 81.8 FL Mean Corpuscular Hemoglobin 26.8 PG Mean Corpuscular Hemoglobin Concent 32.7 % Red Cell Distribution Width 16.8 % Platelet Count 316 TH/MM3 Mean Platelet Volume 9.0 FL Neutrophils (%) (Auto) 83.6 % Lymphocytes (%) (Auto) 8.4 % Monocytes (%) (Auto) 7.8 % Eosinophils (%) (Auto) 0.0 % Basophils (%) (Auto) 0.2 % Neutrophils # (Auto) 9.7 TH/MM3 Lymphocytes # (Auto) 1.0 TH/MM3 Monocytes # (Auto) 0.9 TH/MM3 Eosinophils # (Auto) 0.0 TH/MM3 Basophils # (Auto) 0.0 TH/MM3 CBC Comment DIFF FINAL Differential Comment Blood Urea Nitrogen 128 MG/DL Creatinine 3.94 MG/DL Random Glucose 199 MG/DL Calcium Level 7.9 MG/DL Sodium Level 157 MEQ/L Potassium Level 3.6 MEQ/L Chloride Level 118 MEQ/L Carbon Dioxide Level 29.0 MEQ/L Anion Gap 10 MEQ/L Estimat Glomerular Filtration Rate 21 ML/MIN Imaging Last Impressions Chest X-Ray 06/04/17 0600 Signed Impressions: Service Date/Time: Sunday, June 04, 2017 07:42 - CONCLUSION: Given the degree of hypoinflation the overall lung exam remains stable. The endotracheal tube is positioned 1 cm above the level of the clavicles. Lori Villasenor MD Abdomen X-Ray 06/02/17 0000 Signed Impressions: Service Date/Time: May 10:18 - CONCLUSION: NG tip in stomach. Left basilar airspace disease. Elevated right hemidiaphragm. Bowel gas pattern demonstrates mild ileus Tc Varghese MD Liver Ultrasound 05/31/17 1434 Signed Impressions: Service Date/Time: Wednesday, May 31, 2017 14:40 - CONCLUSION: 1. Interval apparent hepatomegaly with diffusely increased hepatic echogenicity. Given the acuity of findings, findings may reflect acute hepatitis or congestive hepatopathy. 2. Persistently contracted gallbladder which accentuates the gallbladder wall with persistent gallbladder wall thickening and trace pericholecystic fluid. These findings are commonly seen in the setting of liver disease although differential considerations include acalculous cholecystitis. HIDA scan may be performed for better evaluation as clinically appropriate. 3. Andrew Kraft MD Lung Scan-VQ Nuclear Medicine 05/23/17 0000 Signed Impressions: Service Date/Time: Tuesday, May 23, 2017 10:22 - CONCLUSION: Low probability of pulmonary embolism. Buddy Harrison MD FACR Lower Extremity Ultrasound 05/23/17 0000 Signed Impressions: Service Date/Time: Tuesday, May 23, 2017 08:02 - CONCLUSION: Negative for deep venous thrombosis. Buddy Harrison MD FACR Head CT 05/23/17 0000 Signed Impressions: Service Date/Time: Tuesday, May 23, 2017 03:56 - CONCLUSION: 1. Examination quality is degraded by motion artifact. 2. No definite acute finding is identified. There is a 3 mm punctate area of high density in the left frontal periventricular white matter. This could represent small focus of acute blood products. Suggest attention to this on followup imaging. Wiliam Buck MD Brain MRI 05/23/17 0000 Signed Impressions: Service Date/Time: Tuesday, May 23, 2017 15:59 - CONCLUSION: 1. 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 2. No hemorrhage observe. 3. Pansinus disease. Rudy Cervantes Jr., MD Aorta CTA 05/23/17 0000 Signed Impressions: Service Date/Time: Tuesday, May 23, 2017 03:58 - CONCLUSION: 1. 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 The dissection extends to the abdominal aorta and terminates in the common iliac arteries bilaterally. The abdominal vessels arise from both the true and false lumens and demonstrate good opacification. Suggest correlating with the patient's prior imaging study which documents the dissection. 2. 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 3. There is stranding of the periaortic fat adjacent to the arch aneurysm. 4. There are small bilateral pleural effusions, left larger than right, with bilateral volume loss and/or airspace consolidation bilaterally. Wiliam Buck MD Abdomen Ultrasound 05/23/17 0000 Signed Impressions: Service Date/Time: Tuesday, May 23, 2017 17:22 - CONCLUSION: 1. Gall bladder wall thickening and possible pericholecystic fluid without evidence of gallstones. May consider perform hepatic biliary tract scan to evaluate for acalculous cholecystitis. 2. No focal abnormality seen within the liver. Rudy Pollock MD Last Impressions Chest X-Ray 06/04/17 0600 Signed Impressions: Service Date/Time: Sunday, June 04, 2017 07:42 - CONCLUSION: Given the degree of hypoinflation the overall lung exam remains stable. The endotracheal tube is positioned 1 cm above the level of the clavicles. Lori Villasenor MD Abdomen X-Ray 06/02/17 0000 Signed Impressions: Service Date/Time: May 10:18 - CONCLUSION: NG tip in stomach. Left basilar airspace disease. Elevated right hemidiaphragm. Bowel gas pattern demonstrates mild ileus Tc Varghese MD Liver Ultrasound 05/31/17 1434 Signed Impressions: Service Date/Time: Wednesday, May 31, 2017 14:40 - CONCLUSION: 1. Interval apparent hepatomegaly with diffusely increased hepatic echogenicity. Given the acuity of findings, findings may reflect acute hepatitis or congestive hepatopathy. 2. Persistently contracted gallbladder which accentuates the gallbladder wall with persistent gallbladder wall thickening and trace pericholecystic fluid. These findings are commonly seen in the setting of liver disease although differential considerations include acalculous cholecystitis. HIDA scan may be performed for better evaluation as clinically appropriate. 3. Andrew Kraft MD Lung Scan-VQ Nuclear Medicine 05/23/17 0000 Signed Impressions: Service Date/Time: Tuesday, May 23, 2017 10:22 - CONCLUSION: Low probability of pulmonary embolism. Buddy Harrison MD FACR Lower Extremity Ultrasound 05/23/17 0000 Signed Impressions: Service Date/Time: Tuesday, May 23, 2017 08:02 - CONCLUSION: Negative for deep venous thrombosis. Buddy Harrison MD FACR Head CT 05/23/17 0000 Signed Impressions: Service Date/Time: Tuesday, May 23, 2017 03:56 - CONCLUSION: 1. Examination quality is degraded by motion artifact. 2. No definite acute finding is identified. There is a 3 mm punctate area of high density in the left frontal periventricular white matter. This could represent small focus of acute blood products. Suggest attention to this on followup imaging. Wiliam Buck MD Brain MRI 05/23/17 0000 Signed Impressions: Service Date/Time: Tuesday, May 23, 2017 15:59 - CONCLUSION: 1. 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 2. No hemorrhage observe. 3. Pansinus disease. Rudy Cervantes Jr., MD Aorta CTA 05/23/17 0000 Signed Impressions: Service Date/Time: Tuesday, May 23, 2017 03:58 - CONCLUSION: 1. 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 The dissection extends to the abdominal aorta and terminates in the common iliac arteries bilaterally. The abdominal vessels arise from both the true and false lumens and demonstrate good opacification. Suggest correlating with the patient's prior imaging study which documents the dissection. 2. 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 3. There is stranding of the periaortic fat adjacent to the arch aneurysm. 4. There are small bilateral pleural effusions, left larger than right, with bilateral volume loss and/or airspace consolidation bilaterally. Wiliam Buck MD Abdomen Ultrasound 05/23/17 0000 Signed Impressions: Service Date/Time: Tuesday, May 23, 2017 17:22 - CONCLUSION: 1. Gall bladder wall thickening and possible pericholecystic fluid without evidence of gallstones. May consider perform hepatic biliary tract scan to evaluate for acalculous cholecystitis. 2. No focal abnormality seen within the liver. Rudy Pollock MD Last Impressions Chest X-Ray 06/04/17 0600 Signed Impressions: Service Date/Time: Sunday, June 04, 2017 07:42 - CONCLUSION: Given the degree of hypoinflation the overall lung exam remains stable. The endotracheal tube is positioned 1 cm above the level of the clavicles. Lori Villasenor MD Abdomen X-Ray 06/02/17 0000 Signed Impressions: Service Date/Time: May 10:18 - CONCLUSION: NG tip in stomach. Left basilar airspace disease. Elevated right hemidiaphragm. Bowel gas pattern demonstrates mild ileus Tc Varghese MD Liver Ultrasound 05/31/17 1434 Signed Impressions: Service Date/Time: Wednesday, May 31, 2017 14:40 - CONCLUSION: 1. Interval apparent hepatomegaly with diffusely increased hepatic echogenicity. Given the acuity of findings, findings may reflect acute hepatitis or congestive hepatopathy. 2. Persistently contracted gallbladder which accentuates the gallbladder wall with persistent gallbladder wall thickening and trace pericholecystic fluid. These findings are commonly seen in the setting of liver disease although differential considerations include acalculous cholecystitis. HIDA scan may be performed for better evaluation as clinically appropriate. 3. Andrew Kraft MD Lung Scan-V Nuclear Medicine 05/23/17 0000 Signed Impressions: Service Date/Time: Tuesday, May 23, 2017 10:22 - CONCLUSION: Low probability of pulmonary embolism. Buddy Harrison MD FACR Lower Extremity Ultrasound 05/23/17 0000 Signed Impressions: Service Date/Time: Tuesday, May 23, 2017 08:02 - CONCLUSION: Negative for deep venous thrombosis. Buddy Harrison MD FACR Head CT 05/23/17 0000 Signed Impressions: Service Date/Time: Tuesday, May 23, 2017 03:56 - CONCLUSION: 1. Examination quality is degraded by motion artifact. 2. No definite acute finding is identified. There is a 3 mm punctate area of high density in the left frontal periventricular white matter. This could represent small focus of acute blood products. Suggest attention to this on followup imaging. Wiliam Buck MD Brain MRI 05/23/17 0000 Signed Impressions: Service Date/Time: Tuesday, May 23, 2017 15:59 - CONCLUSION: 1. 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 2. No hemorrhage observe. 3. Pansinus disease. Rudy Cervantes Jr., MD Aorta CTA 05/23/17 0000 Signed Impressions: Service Date/Time: Tuesday, May 23, 2017 03:58 - CONCLUSION: 1. 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 The dissection extends to the abdominal aorta and terminates in the common iliac arteries bilaterally. The abdominal vessels arise from both the true and false lumens and demonstrate good opacification. Suggest correlating with the patient's prior imaging study which documents the dissection. 2. 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 3. There is stranding of the periaortic fat adjacent to the arch aneurysm. 4. There are small bilateral pleural effusions, left larger than right, with bilateral volume loss and/or airspace consolidation bilaterally. Wiliam Buck MD Abdomen Ultrasound 05/23/17 0000 Signed Impressions: Service Date/Time: Tuesday, May 23, 2017 17:22 - CONCLUSION: 1. Gall bladder wall thickening and possible pericholecystic fluid without evidence of gallstones. May consider perform hepatic biliary tract scan to evaluate for acalculous cholecystitis. 2. No focal abnormality seen within the liver. Rudy Pollock MD Last Impressions Chest X-Ray 06/03/17 0600 Signed Impressions: Service Date/Time: Saturday, June 03, 2017 04:16 - CONCLUSION: 1. Interval complete opacification of the right upper lobe. 2. Stable left basilar consolidation/effusion and stable patchy airspace disease medially in the right lower lung field. 3. Stable position of life support tubes. Rodrigue Miller MD Abdomen X-Ray 06/02/17 0000 Signed Impressions: Service Date/Time: May 10:18 - CONCLUSION: NG tip in stomach. Left basilar airspace disease. Elevated right hemidiaphragm. Bowel gas pattern demonstrates mild ileus Tc Varghese MD Liver Ultrasound 05/31/17 1434 Signed Impressions: Service Date/Time: Wednesday, May 31, 2017 14:40 - CONCLUSION: 1. Interval apparent hepatomegaly with diffusely increased hepatic echogenicity. Given the acuity of findings, findings may reflect acute hepatitis or congestive hepatopathy. 2. Persistently contracted gallbladder which accentuates the gallbladder wall with persistent gallbladder wall thickening and trace pericholecystic fluid. These findings are commonly seen in the setting of liver disease although differential considerations include acalculous cholecystitis. HIDA scan may be performed for better evaluation as clinically appropriate. 3. Andrew Kraft MD Lung Scan- Nuclear Medicine 05/23/17 0000 Signed Impressions: Service Date/Time: Tuesday, May 23, 2017 10:22 - CONCLUSION: Low probability of pulmonary embolism. Buddy Harrison MD FACR Lower Extremity Ultrasound 05/23/17 0000 Signed Impressions: Service Date/Time: Tuesday, May 23, 2017 08:02 - CONCLUSION: Negative for deep venous thrombosis. Buddy Harrison MD FACR Head CT 05/23/17 0000 Signed Impressions: Service Date/Time: Tuesday, May 23, 2017 03:56 - CONCLUSION: 1. Examination quality is degraded by motion artifact. 2. No definite acute finding is identified. There is a 3 mm punctate area of high density in the left frontal periventricular white matter. This could represent small focus of acute blood products. Suggest attention to this on followup imaging. Wiliam Buck MD Brain MRI 05/23/17 0000 Signed Impressions: Service Date/Time: Tuesday, May 23, 2017 15:59 - CONCLUSION: 1. 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 2. No hemorrhage observe. 3. Pansinus disease. Rudy Cervantes Jr., MD Aorta CTA 05/23/17 0000 Signed Impressions: Service Date/Time: Tuesday, May 23, 2017 03:58 - CONCLUSION: 1. 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 The dissection extends to the abdominal aorta and terminates in the common iliac arteries bilaterally. The abdominal vessels arise from both the true and false lumens and demonstrate good opacification. Suggest correlating with the patient's prior imaging study which documents the dissection. 2. 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 3. There is stranding of the periaortic fat adjacent to the arch aneurysm. 4. There are small bilateral pleural effusions, left larger than right, with bilateral volume loss and/or airspace consolidation bilaterally. Wiliam Buck MD Abdomen Ultrasound 05/23/17 0000 Signed Impressions: Service Date/Time: Tuesday, May 23, 2017 17:22 - CONCLUSION: 1. Gall bladder wall thickening and possible pericholecystic fluid without evidence of gallstones. May consider perform hepatic biliary tract scan to evaluate for acalculous cholecystitis. 2. No focal abnormality seen within the liver. Rudy Pollock MD Last Impressions Chest X-Ray 06/09/17 0600 Signed Impressions: Service Date/Time: May 04:31 - CONCLUSION: Persistent bilateral lower lobe consolidation, left greater than right. Rudy Pollock MD Abdomen X-Ray 06/02/17 0000 Signed Impressions: Service Date/Time: May 10:18 - CONCLUSION: NG tip in stomach. Left basilar airspace disease. Elevated right hemidiaphragm. Bowel gas pattern demonstrates mild ileus Tc Varghese MD Liver Ultrasound 05/31/17 1434 Signed Impressions: Service Date/Time: Wednesday, May 31, 2017 14:40 - CONCLUSION: 1. Interval apparent hepatomegaly with diffusely increased hepatic echogenicity. Given the acuity of findings, findings may reflect acute hepatitis or congestive hepatopathy. 2. Persistently contracted gallbladder which accentuates the gallbladder wall with persistent gallbladder wall thickening and trace pericholecystic fluid. These findings are commonly seen in the setting of liver disease although differential considerations include acalculous cholecystitis. HIDA scan may be performed for better evaluation as clinically appropriate. 3. Andrew Kraft MD Lung Scan-V Nuclear Medicine 05/23/17 0000 Signed Impressions: Service Date/Time: Tuesday, May 23, 2017 10:22 - CONCLUSION: Low probability of pulmonary embolism. Buddy Harrison MD FACR Lower Extremity Ultrasound 05/23/17 0000 Signed Impressions: Service Date/Time: Tuesday, May 23, 2017 08:02 - CONCLUSION: Negative for deep venous thrombosis. Buddy Harrison MD FACR Head CT 05/23/17 0000 Signed Impressions: Service Date/Time: Tuesday, May 23, 2017 03:56 - CONCLUSION: 1. Examination quality is degraded by motion artifact. 2. No definite acute finding is identified. There is a 3 mm punctate area of high density in the left frontal periventricular white matter. This could represent small focus of acute blood products. Suggest attention to this on followup imaging. Wiliam Buck MD Brain MRI 05/23/17 0000 Signed Impressions: Service Date/Time: Tuesday, May 23, 2017 15:59 - CONCLUSION: 1. 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 2. No hemorrhage observe. 3. Pansinus disease. Rudy Cervantes Jr., MD Aorta CTA 05/23/17 0000 Signed Impressions: Service Date/Time: Tuesday, May 23, 2017 03:58 - CONCLUSION: 1. 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 The dissection extends to the abdominal aorta and terminates in the common iliac arteries bilaterally. The abdominal vessels arise from both the true and false lumens and demonstrate good opacification. Suggest correlating with the patient's prior imaging study which documents the dissection. 2. 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 3. There is stranding of the periaortic fat adjacent to the arch aneurysm. 4. There are small bilateral pleural effusions, left larger than right, with bilateral volume loss and/or airspace consolidation bilaterally. Wiliam Buck MD Abdomen Ultrasound 05/23/17 0000 Signed Impressions: Service Date/Time: Tuesday, May 23, 2017 17:22 - CONCLUSION: 1. Gall bladder wall thickening and possible pericholecystic fluid without evidence of gallstones. May consider perform hepatic biliary tract scan to evaluate for acalculous cholecystitis. 2. No focal abnormality seen within the liver. Rudy Pollock MD Objective Remarks GENERAL: This is a 36-year-old well-developed well-nourished AA male resting in bed orotracheally intubated, and sedated SKIN: Warm and dry, adequately perfused. HEAD: Normocephalic. EYES: Pupils 3 mm and reactive. No scleral icterus. No injection or drainage. NECK: Supple, trachea midline. No JVD or lymphadenopathy. Left IJ CVL is clean dry and intact CARDIOVASCULAR: Distant. RRR. S1, S2 no S4. Cannot appreciate murmurs, clicks , gallops or rubs RESPIRATORY: Coarse rhonchorous crackles noted throughout all lung [place] anterior-posterior bilaterally. No wheezing GASTROINTESTINAL: Abdomen soft, non-tender, nondistended. Hypoactive bowel sounds are appreciated MUSCULOSKELETAL: No cyanosis. Edema 2+ bilateral upper and lower extremities NEURO: Currently sedated on Versed, propofol and fentanyl drips. Positive gag and corneal reflex. Positive cough. 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 On Fentanyl, Versed, Propofol infusion to maintain ventilator synchrony. Goal of RASS -2 Daily sedation vacation when appropriate Acetaminophen 650 mg by tube every 6 hours as needed fever discontinued due to elevated transaminases Evaluated by neurology/Dr. Espinosa MRI brain 05/23 revealed bilateral frontal embolic CVA CT brain: There is a 3 mm punctate area of high density in the left frontal periventricular white matter. This could represent small focus of acute blood products. EEG : Mild diffuse encephalopathy, no seizure activity Continue aspirin 162 mg p.o. daily. Okayed with neurology. CV: Hypertensive emergency Acute type B aortic dissection Elevated troponin PEA cardiac arrest 05/23/17, secondary to obstructive sleep apnea/obesity hypoventilation syndrome with Bipap nonadherence. CTA stable. VQ scan negative . Hyperlipidemia Monitor HR and BP keep MAP>65mmHg Currently on carvedilol 25 mg twice daily Diltiazem 90 mg every 6 hours Clonidine 0.1 mg every 8 hours Repeat echo 05/23: EF 60-65%, no RWMA Evaluated by cardiology, Dr. Bhakta on 05/24 due to troponin elevation. He attributed elevated troponin to PEA arrest, hypoxia, renal insufficiency. No further ischemic workup planned at this time. 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 The dissection extends to the abdominal aorta and terminates in the common iliac arteries bilaterally. The abdominal vessels arise from both the true and false lumens and demonstrate good opacification. Vascular surgery is following- Dr. Thomas Thomas: Obstructive sleep apnea Obesity hypoventilation syndrome Acute hypercapnic respiratory failure intubated 05/30 Ventilator dependent respiratory failure PC/AC IP:25, IT:1.9, PEEP:12, FIO2 60%, decrease FIO2 as kell. Ventilator bundle Bronchodilators, Duoneb Q4, Mucomyst nebs Off Flolan, decrease solumederol 40mg Q12 V/Q scan: low prob PE s/p bronch today showed mucous plugs/ thick secretions b/l, normal mucosa, no evidence of EBL, BAL performed RUL. Status post bronchoscopy 05/30 revealed no mucus plugging. Normal bronchial mucosa without lesions. No signs of bleeding. LEN negative Renal/: Nonoliguric acute kidney injury Rhabdo Electrolyte derangement Likely secondary to ischemic ATN following cardiac arrest. Off Diuretics due to worsening hypernatremia Cr:3.94 from 4.46, UOP: 2600ml in 24 hrs Renal is following- Dr. Flannery US abdomen: No hydronephrosis. Change free water 300ml Q6, add D5W@50ml/hr monitor sodium level. GI: Elevated transaminases Hypoalbuminemia Hyperammonia Continue Nepro @ 55ml/hr-no residuals Famotidine 10 mg BID for GI prophylaxis Docusate/senna 1 tablet twice daily, polyethylene glycol 17 g twice daily and lactulose 30 cc twice daily for bowel regimen. Monitor LFT's (trending down),Hep profile is negative Abdominal ultrasound 05/31 -market hepatic congestion. Contracted gallbladder with pericholecystic fluid. Possible acalculous cholecystitis recommend HIDA scan if clinically able. US abdomen: Gall bladder wall thickening and possible pericholecystic fluid without evidence of gallstones. Recommend HIDA scan if clinically indicated Lactulose 30 cc 4 times daily. GI following Heme: Persistent Leukocytosis Microcytic anemia Monitor CBC VQ scan negative 05/23 BLE u/s negative for DVT 05/23 ID: MSSA pneumonia Bandemia Abx per ID ( On Cefepime) Monitor for signs of infections ( Fever, WBC) ID is following- Pertinent: 06/08 -sputum -pending 05/31/13 -blood cultures 2 -pending 05/30 -bronchoscopy -no growth 05/30 -sputum -rare WBC/budding yeast 05/30 -blood cultures 2 -pending 05/25 -blood cultures 2 -no growth to date 05/25 -urine culture -no growth to date 05/23 -sputum -MSSA 05/23 -blood cultures 2 -no growth to date Endo: Currently on sliding scale insulin NovUlin R medium regimen every 6 hours sliding scale. TSH 2.3 MSK: Elevated BMI Weight loss encouraged PROPH: SCDs /Heparin subcut q 12 hours for DVT prophylaxis. (Previous [employer] documented discussion with Dr. Guzman who would be amenable to anticoagulation if felt to be indicated for stroke, Dr. Espinosa states recommended ASA ). ACCESS R IJ CVL 05/23- 05/31 Left IJ CVL placed 05/31 CCT 30 mins Clara,Alaa MD Jun 09, 2017 12:31
--- NOTE | 2017-06-09 14:07 | HHI.IDPN ---
Subjective Subjective Remarks slowly weaning, down to 50% FiO2 Large BMs - 3rd today BAL and ETT sputum - all negative todate Antibiotics cefepime Allergies: Coded Allergies: No Known Allergies (Unverified , 05/19/17) Objective . Vital Signs Date Time Temp Pulse Resp B/P (MAP) Pulse Ox O2 Delivery O2 Flow Rate FiO2 06/09/17 11:39 92 50 06/09/17 08:06 93 60 06/09/17 08:00 60 06/09/17 07:00 94 Mechanical Ventilator 8.00 60 06/09/17 07:00 97.4 74 0 133/62 (85) 92 06/09/17 04:29 95 60 06/09/17 04:00 60 06/09/17 03:00 98.2 75 16 120/56 (77) 90 06/09/17 03:00 94 Mechanical Ventilator 8.00 60 06/09/17 01:51 95 60 06/09/17 00:18 96 60 06/09/17 00:00 60 06/08/17 23:49 95 60 06/08/17 23:00 98.1 62 11 139/56 (83) 94 06/08/17 23:00 94 Mechanical Ventilator 8.00 60 06/08/17 20:00 98.3 72 16 120/58 (78) 95 06/08/17 20:00 60 06/08/17 19:00 94 Mechanical Ventilator 8.00 60 06/08/17 19:00 79 06/08/17 17:08 96 60 06/08/17 16:00 60 06/08/17 15:00 96 Mechanical Ventilator 65 06/08/17 15:00 63 06/08/17 15:00 98.8 63 9 127/55 (79) 06/08/17 14:49 95 60 . Laboratory Tests Test 06/08/17 04:00 06/09/17 06:30 White Blood Count 12.2 TH/MM3 11.6 TH/MM3 Red Blood Count 3.54 MIL/MM3 3.38 MIL/MM3 Hemoglobin 9.4 GM/DL 9.0 GM/DL Hematocrit 28.4 % 27.7 % Mean Corpuscular Volume 80.4 FL 81.8 FL Mean Corpuscular Hemoglobin 26.5 PG 26.8 PG Mean Corpuscular Hemoglobin Concent 32.9 % 32.7 % Red Cell Distribution Width 16.8 % 16.8 % Platelet Count 339 TH/MM3 316 TH/MM3 Mean Platelet Volume 9.0 FL 9.0 FL Neutrophils (%) (Auto) 83.6 % Lymphocytes (%) (Auto) 8.4 % Monocytes (%) (Auto) 7.8 % Eosinophils (%) (Auto) 0.0 % Basophils (%) (Auto) 0.2 % Neutrophils # (Auto) 9.7 TH/MM3 Lymphocytes # (Auto) 1.0 TH/MM3 Monocytes # (Auto) 0.9 TH/MM3 Eosinophils # (Auto) 0.0 TH/MM3 Basophils # (Auto) 0.0 TH/MM3 CBC Comment DIFF FINAL Differential Comment Laboratory Tests Test 06/08/17 04:00 06/09/17 06:30 Blood Urea Nitrogen 133 MG/DL 128 MG/DL Creatinine 4.46 MG/DL 3.94 MG/DL Random Glucose 199 MG/DL 199 MG/DL Calcium Level 8.2 MG/DL 7.9 MG/DL Phosphorus Level 3.9 MG/DL Magnesium Level 2.3 MG/DL Sodium Level 156 MEQ/L 157 MEQ/L Potassium Level 3.6 MEQ/L 3.6 MEQ/L Chloride Level 115 MEQ/L 118 MEQ/L Carbon Dioxide Level 33.1 MEQ/L 29.0 MEQ/L Anion Gap 8 MEQ/L 10 MEQ/L Estimat Glomerular Filtration Rate 18 ML/MIN 21 ML/MIN Microbiology Date/Time Source Procedure Growth Status 06/08/17 14:47 Sputum Endotracheal Gram Stain - Final Resulted 06/08/17 14:47 Sputum Endotracheal Sputum Culture - Preliminary MODERATE GROWTH NORMAL RESPIRATORY FL... Resulted Imaging Last Im Last Impressions Chest X-Ray 06/09/17 0600 Signed Impressions: Service Date/Time: May 04:31 - CONCLUSION: Persistent bilateral lower lobe consolidation, left greater than right. Rudy Pollock MD Abdomen X-Ray 06/02/17 0000 Signed Impressions: Service Date/Time: May 10:18 - CONCLUSION: NG tip in stomach. Left basilar airspace disease. Elevated right hemidiaphragm. Bowel gas pattern demonstrates mild ileus Tc Varghese MD Liver Ultrasound 05/31/17 1434 Signed Impressions: Service Date/Time: Wednesday, May 31, 2017 14:40 - CONCLUSION: 1. Interval apparent hepatomegaly with diffusely increased hepatic echogenicity. Given the acuity of findings, findings may reflect acute hepatitis or congestive hepatopathy. 2. Persistently contracted gallbladder which accentuates the gallbladder wall with persistent gallbladder wall thickening and trace pericholecystic fluid. These findings are commonly seen in the setting of liver disease although differential considerations include acalculous cholecystitis. HIDA scan may be performed for better evaluation as clinically appropriate. 3. Andrew Kraft MD Lung Scan-VQ Nuclear Medicine 05/23/17 Signed Impressions: Service Date/Time: Tuesday, May 23, 2017 10:22 - CONCLUSION: Low probability of pulmonary embolism. Buddy Harrison MD FACR Lower Extremity Ultrasound 05/23/17 Signed Impressions: Service Date/Time: Tuesday, May 23, 2017 08:02 - CONCLUSION: Negative for deep venous thrombosis. Buddy Harrison MD FACR Head CT 05/23/17 Signed Impressions: Service Date/Time: Tuesday, May 23, 2017 03:56 - CONCLUSION: 1. Examination quality is degraded by motion artifact. 2. No definite acute finding is identified. There is a 3 mm punctate area of high density in the left frontal periventricular white matter. This could represent small focus of acute blood products. Suggest attention to this on followup imaging. Wiliam Buck MD Brain MRI 05/23/17 0000 Signed Impressions: Service Date/Time: Tuesday, May 23, 2017 15:59 - CONCLUSION: 1. 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 2. No hemorrhage observe. 3. Pansinus disease. Rudy Cervantes Jr., MD Aorta CTA 05/23/17 0000 Signed Impressions: Service Date/Time: Tuesday, May 23, 2017 03:58 - CONCLUSION: 1. 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 The dissection extends to the abdominal aorta and terminates in the common iliac arteries bilaterally. The abdominal vessels arise from both the true and false lumens and demonstrate good opacification. Suggest correlating with the patient's prior imaging study which documents the dissection. 2. 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 3. There is stranding of the periaortic fat adjacent to the arch aneurysm. 4. There are small bilateral pleural effusions, left larger than right, with bilateral volume loss and/or airspace consolidation bilaterally. Wiliam Buck MD Abdomen Ultrasound 05/23/17 0000 Signed Impressions: Service Date/Time: Tuesday, May 23, 2017 17:22 - CONCLUSION: 1. Gall bladder wall thickening and possible pericholecystic fluid without evidence of gallstones. May consider perform hepatic biliary tract scan to evaluate for acalculous cholecystitis. 2. No focal abnormality seen within the liver. Rudy Pollock MD Physical Exam CONSTITUTIONAL/GENERAL: This is an adequately nourished patient, sedated int'd on vent TUBES/LINES/DRAINS: SKIN: No jaundice, rashes, or lesions. Skin temperature appropriate. Not diaphoretic. EYES: Pupils equal and round and reactive. Extraocular motions intact. No scleral icterus. No injection or drainage. Fundi not examined. CARDIOVASCULAR: Regular rate and rhythm without murmurs, gallops, or rubs. No JVD. Peripheral pulses symmetric. RESPIRATORY/CHEST: Symmetric, unlabored respirations. few scattered rhonchi to auscultation. Breath sounds equal bilaterally. GASTROINTESTINAL: Abdomen soft, non-tender, nondistended. No hepato-splenomegaly , or palpable masses. No guarding. Bowel sounds present. Incontinent of large brown stool GENITOURINARY: Without palpable bladder distension. Ledesma catheter in place with very light yellow urine MUSCULOSKELETAL: Extremities without clubbing, cyanosis, improving edema, 2- 3+, less tight No mottling or clubbing. NEUROLOGICAL: sedated per RN moves all 4 extremeies spontaneously PSYCHIATRIC: unable to assess Assessment & Plan Remarks Type B AAA dissection PNA, clx negative, but BAL cw PNA, 24 K WBC growing budding yeast from BAL - doubt clin significance New pulmonary infiltrate Acute VDRF - failure to wean Non oliguric ARF Fever -resolved Leukocytosis, bandemia - improving to some degree leukocytosis is probably 2/2 sterroids; wont expect bancdemis 2/2 it however bands are less Abx associated ileus , diarrhea - c.diff negative change cefepime to CFTX repeat sputum clx will repeat stool for C.diff Discussed Condition With Nalini Bliss MD Jun 09, 2017 14:07
--- NOTE | 2017-06-09 15:50 | HHI.NPPN ---
Subjective History of Present Illness 36 year old with Aortic dissection ARF Additional Remarks Patient remains intubated Objective Data Data Vital Signs Date Time Temp Pulse Resp B/P (MAP) Pulse Ox O2 Delivery O2 Flow Rate FiO2 06/09/17 15:00 74 16 135/61 (85) 93 06/09/17 15:00 94 Mechanical Ventilator 50 06/09/17 12:00 50 06/09/17 11:39 92 50 06/09/17 11:00 94 Mechanical Ventilator 50 06/09/17 11:00 98.3 72 16 139/64 (89) 91 06/09/17 08:06 93 60 06/09/17 08:00 60 06/09/17 07:00 94 Mechanical Ventilator 8.00 60 06/09/17 07:00 97.4 74 0 133/62 (85) 92 06/09/17 04:29 95 60 06/09/17 04:00 60 06/09/17 03:00 98.2 75 16 120/56 (77) 90 06/09/17 03:00 94 Mechanical Ventilator 8.00 60 06/09/17 01:51 95 60 06/09/17 00:18 96 60 06/09/17 00:00 60 06/08/17 23:49 95 60 06/08/17 23:00 98.1 62 11 139/56 (83) 94 06/08/17 23:00 94 Mechanical Ventilator 8.00 60 06/08/17 20:00 98.3 72 16 120/58 (78) 95 06/08/17 20:00 60 06/08/17 19:00 94 Mechanical Ventilator 8.00 60 06/08/17 19:00 79 06/08/17 17:08 96 60 06/08/17 16:00 60 -: 06/09/17 0630 06/09/17 0630 Physical Exam General Appearance: Well Developed Eyes Eye Exam: Pupils Equal Neck Neck Exam: Neck Supple Pulmonary Resp Exam: Clear Bilaterally Cardiology CV Exam: Regular, Normal Sinus Rhythm Gastrointestinal/Abdomen GI Exam: Soft, Non-Tender Genitourinary Exam: Clear Urine Integumentary Skin Exam: Intact Extremeties Extremities Exam: Moderate Edema, Pitting Edema, Dependent Edema Assessment/Plan Problem List: (1) Acute renal failure ICD Codes: N17.9 - Acute kidney failure, unspecified Plan: He has large dissection of aorta continue to monitor he is passing urine , creatinine he did receive IV contrast repeat CTA Dissection up to Common Iliac arteries seen with true and false lumen perfused Cr 5.6-> 5.7 -> 5.7 -> 5.3 -> 5 -> 4.4-. 3.9 non oliguric, off all diuretics Getting free water Sodium 157 Patient has good urine out. (2) Dissection of aorta, thoracoabdominal ICD Codes: I71.03 - Dissection of thoracoabdominal aorta Status: Acute Plan: vascular is following Renal arteries remains perfused Roz Flannery MD Jun 09, 2017 15:50
[2017-06-09] MEDS: CEFEPIME INJ 2,000 MG in SODIUM CHLORIDE 0.9% INJ 100 ML IV SCH (18:25)
[2017-06-09] MEDS: RESP: ALBUTEROL 2.5 MG/3 ML NEB (PRN) NEB (21:51)
[2017-06-10] VITALS (45 sets, daily range): BP systolic 106–173; BP diastolic 55–79; PULSE 73–103; RESP 16–26; TEMP 97.6–99.4; O2SAT 93–99
[2017-06-10] MEDS: PROPOFOL 1000 MG/100 ML INJ 100 ML IV PRN ×4 (00:15→16:32)
[2017-06-10] MEDS: CARVEDILOL 12.5 MG TAB PO SCH ×3 (01:56→20:19)
[2017-06-10] MEDS: DILTIAZEM HCL 90 MG TAB PO SCH ×4 (01:56→17:05)
[2017-06-10] MEDS: methylPREDNISolone SOD SUCC 40 MG/1 ML VIAL IV PUSH SCH ×2 (01:57→07:43)
[2017-06-10] MEDS: cloNIDine HCL 0.1 MG TAB PO SCH ×4 (01:57→20:20)
[2017-06-10] MEDS: RESP: ALBUTEROL 2.5 MG/3 ML NEB (PRN) NEB ×3 (03:25→19:36)
[2017-06-10] MEDS: CHLORHEXIDINE GLUCONATE 2 % 1 PACK (2 CLOTHS) TOP SCH (04:00)
[2017-06-10] MEDS: hydrALAZINE HCL 20 MG/ML VIAL IV PUSH PRN ×4 (04:02→18:01)
[2017-06-10] MEDS: METOPROLOL TARTRATE 5 MG/5 ML VIAL IV PUSH PRN ×4 (04:08→20:19)
[2017-06-10] MEDS: LABETALOL HCL 100 MG/20 ML VIAL IV PUSH PRN ×4 (04:16→18:01)
[2017-06-10] MEDS: INSULIN NovoLIN REGULAR SUPPLEMENTAL SCALE SQ SCH ×4 (06:00→18:01)
[2017-06-10] MEDS: LACTULOSE SYRUP 20 GM/30 ML CUP OG-TUBE SCH ×2 (06:00)
[2017-06-10] MEDS: ARTIFICIAL TEARS OPTH SOLN 15 ML BTL EACH EYE SCH ×3 (06:00→20:20)
[2017-06-10] MEDS: FREE WATER G-TUBE SCH ×5 (06:00→20:00)
[2017-06-10 06:24] LABS: BASOPHIL % 0.4 % (0.0-2.0); EOSINOPHIL % 0.4 % (0.0-4.0); HEMATOCRIT 27.8 % (39.0-51.0); HEMOGLOBIN 9.1 GM/DL (13.0-17.0); LYMPH % 11.6 % (9.0-44.0); LYMPHOCYTE # 1.4 TH/MM3 (1.0-4.8); MEAN CELL VOLUME 81.8 FL (80.0-100.0); MEAN CORPUSCULAR HEMOGLOBIN 26.6 PG (27.0-34.0); MEAN CORPUSCULAR HGB CONC 32.6 % (32.0-36.0); MEAN PLATELET VOLUME 9.1 FL (7.0-11.0); MONO % 10.8 % (0.0-8.0); MONOCYTE # 1.3 TH/MM3 (0-0.9); NEUT % 76.8 % (16.0-70.0); PLATELET COUNT 307 TH/MM3 (150-450); RED CELL DISTRIBUTION WIDTH 17.1 % (11.6-17.2); WHITE BLOOD COUNT 11.7 TH/MM3 (4.0-11.0)
[2017-06-10 07:03] LABS: ALBUMIN 2.1 GM/DL (3.4-5.0); ALKALINE PHOSPHATASE 72 U/L (45-117); ALT (GPT) 183 U/L (12-78); AST (GOT) 24 U/L (15-37); BICARBONATE 28.7 MEQ/L (21.0-32.0); BLOOD UREA NITROGEN 123 MG/DL (7-18); CALCIUM 8.1 MG/DL (8.5-10.1); CHLORIDE 117 MEQ/L (98-107); CREATININE 3.52 MG/DL (0.60-1.30); GLOMERULAR FILTRATION RATE 24 ML/MIN (>89); GLUCOSE,RANDOM 183 MG/DL (74-106); TOTAL BILIRUBIN ADULT 0.5 MG/DL (0.2-1.0); TOTAL PROTEIN 6.3 GM/DL (6.4-8.2)
[2017-06-10 07:13] LABS: SODIUM (NA) 156 MEQ/L (136-145)
[2017-06-10] MEDS: HEPARIN SODIUM - SQ 10,000 UNITS/ML VIAL SQ SCH ×2 (07:43→21:00)
[2017-06-10] MEDS: ASPIRIN 81 MG CHEW TAB CHEW SCH (07:43)
[2017-06-10] MEDS: FAMOTIDINE 20 MG/2 ML VIAL IV PUSH SCH ×2 (07:44→20:18)
[2017-06-10] MEDS: CHLORHEXIDINE 0.12% (ORAL KIT) 15 ML CUP MT SCH ×2 (07:44→20:18)
[2017-06-10] MEDS: DEXTROSE 5% IN WATE 1000ML INJ 1,000 ML IV SCH (08:05)
[2017-06-10] MEDS: SODIUM CHLORIDE 0.9% FLUSH 10 ML FLUSH IV FLUSH SCH (08:44)
--- NOTE | 2017-06-10 08:45 | HHI.CCPN ---
Subjective Remarks/Hospital Course 05/19: Is a 36-year-old male with a history of hypertension who is on vacation from the [place] area who did not take his antihypertensives today because he is on vacation, and was having sexual intercourse when he had sudden onset of severe substernal radiating to the back chest pain earlier today. 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 He was emergently transferred to [facility] for further management. I evaluated the patient on arrival to the ICU by EVAC. Patient denies abdominal pain. Still endorses chest pain although this is improving. Patient denies any other symptoms. CT chest abdomen pelvis was reviewed and reviewed with myself and Dr. Guzman and does demonstrate a type B dissection. 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 Initial laboratory evidence demonstrates a lactate of 1.3, creatinine 1.2, normal LFTs. 05/20: On home C Pap. Urine output 30 cc/h currently. Remains on esmolol and labetalol drips. Remains drowsy though arousable. +4.4 L 05/21: Resting comfortably on nasal cannula. Awake and alert currently. Denies any shortness of breath or chest pain currently. 05/22: AAO x3, resting comfortably. 05/23 Patient went into PEA arrest early this morning now sedated with Diprivan and intubated. Off Esmolol drip. 05/24 Patient is sedated with Diprivan and intubated. On Labetolol drip. MRI brain yesterday showed multiple small infracts, no hemorrhage. 05/25 Patient remains intubated and sedated. T: 100.5 last night. Renal function is worsening with Cr: 3.6 from 3.4 and UOP: 2650ml in 24 hrs. 05/26 No events overnight. Sedated and intubated. Afebrile. Cr: 3.62 , UOP: 1950ml in 24 hrs 05/27 Patient was extubated yesterday placed on BIPAP overnight. Cr: 3.42 today , UOP: 1800 ml in 24 hrs 05/28 Extubated yesterday and per report was compliant with Bipap overnight Remains on esmolol drip 200 mcg/kg/min and SBP in 140s. ZULY, probable ATN non- oliguric however I>>0 with significant intake from MIVF as well as 180 mL/hr from esmolol drip. IVF d/c per nephrology and transitioning off esmolol to minimize fluid. Hugo now per my discussion with Dr. Thornton. He is tachypneic, obtained ABG with hypercapnea on simple mask. Placing On Bipap. at bedside requesting eventual transfer to [place], though she realized he is not stable for that yet. 05/29: Remains on BiPAP since 299 with increasing respiratory rates. Will attempt a more aggressive diuresis. We started on esmolol drip due to persistent tachycardia and unable to reach target blood pressure and heart rate requirements. At high risk for reintubation. 05/30: Remained hypotensive overnight. This a.m. 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 Will require bronchoscopy this afternoon. Continue with aggressive diuresis. Broad antibiotic coverage. Start tube feeding. The systolic blood pressure better controlled while intubated on propofol and fentanyl drips. 05/31: T-max 102.8. Currently 99.6. FiO2 down to 80%. The same noted elevated transaminases AST of 2674. ALT of 1590. Creatinine is increased to 3.07 to 4.36. +2 L past 24 hours. One bowel movement. Noted prior gallbladder wall thickening on previous ultrasound. We will repeat today Subjective 06/01: T-max 102.5. Currently 98.9. Desaturate overnight resolved currently FiO2 of 80%. 4500 cc urine output. Creatinine continues to rise currently 4.9. CPK currently 6165. We will discontinue propofol with hepatomegaly, rhabdomyolysis possibly indicative propofol infusion syndrome. 06/02 Patient remains intubated and sedated. On Fentanyl, Versed and Nimbex. T: 100.0 at midnight. On PC/AC with PEEP:15, FIO2 50% Renal function continue to decline with Cr: 5.40 from 4.91 and UOP: 2895 ml in 24 hrs 06/03 Patient remains intubated and sedated with Versed, Fentanyl drips. Remains on Nimbex and Flolan. Cr: 5.6 from 5.4 with UOP: 3790 ml in 24 hrs. 06/04:Afebrile. Overnight the patient had an episode of hypotension during the and all sedation was briefly discontinued, then resumed for ventilator synchrony. Clonidine dosage decreased. Patient continues on pressure control mode, and Flolan for adequate oxygenation. Creatinine noted to be 5.7 weight urine output 3220cc/24 hrs. 06/05: Afebrile. This x-ray revealed improving area aeration of the right hemithorax. PEEP decreased this a.m. to 12, patient continues on FiO2 55% and Flolan, planned weaning. Electrolytes currently being replaced. Elevated liver enzymes continue to down trend. 06/06: Respiratory requirements decreasing, patient now on Flolan 10 ng/kg/min with FiO2 at 60%, maintaining O2 saturation 92%. Creatinine continues to down trend. Leukocytosis improving. 06/07: Flolan discontinued, FIO2 65%. Propofol added to maintain ventilator synchrony. Patient currently on 10 mg of Versed and 250 mics of fentanyl. Wound care was consulted for skin breakdown on buttocks secondary to multiple bowel movements, patient continues on Avani bed. 06/08: No acute events overnight. Flolan discontinued greater than 18 hours patient's O2 saturation 97% on FiO2 of 65. FiO2 requirements decreased the patient continues on a PEEP of 12. Free water flushes added to medication regimen secondary to hypernatremia, sodium level 156 today. 06/09 Patient remains sedated and intubated. Afebrile. 06/10 Patient is sedated with Versed, Diprivan and Fentanyl drips, intubated. Afebrile. renal function is improving with Cr: 3.52 from 3.94 Objective Vital Signs Date Time Temp Pulse Resp B/P (MAP) Pulse Ox O2 Delivery O2 Flow Rate FiO2 06/10/17 08:13 98 50 06/10/17 04:00 97.6 73 16 128/60 (82) 06/09/17 19:00 Mechanical Ventilator 06/09/17 07:00 8.00 Intake and Output 06/10/17 06/10/17 06/11/17 08:00 16:00 00:00 Intake Total 959 ml Output Total 1300 ml Balance -341 ml Result Diagram: 06/10/17 0556 06/10/17 0556 Other Results Laboratory Tests Test 06/09/17 12:15 06/10/17 05:56 Stool C. difficile Toxin (PCR) NEGATIVE Stl C. difficile Toxin Epiderm 027 PRESUMPTIVE NEGATIVE White Blood Count 11.7 TH/MM3 Red Blood Count 3.40 MIL/MM3 Hemoglobin 9.1 GM/DL Hematocrit 27.8 % Mean Corpuscular Volume 81.8 FL Mean Corpuscular Hemoglobin 26.6 PG Mean Corpuscular Hemoglobin Concent 32.6 % Red Cell Distribution Width 17.1 % Platelet Count 307 TH/MM3 Mean Platelet Volume 9.1 FL Neutrophils (%) (Auto) 76.8 % Lymphocytes (%) (Auto) 11.6 % Monocytes (%) (Auto) 10.8 % Eosinophils (%) (Auto) 0.4 % Basophils (%) (Auto) 0.4 % Neutrophils # (Auto) 9.0 TH/MM3 Lymphocytes # (Auto) 1.4 TH/MM3 Monocytes # (Auto) 1.3 TH/MM3 Eosinophils # (Auto) 0.0 TH/MM3 Basophils # (Auto) 0.0 TH/MM3 CBC Comment DIFF FINAL Differential Comment Blood Urea Nitrogen 123 MG/DL Creatinine 3.52 MG/DL Random Glucose 183 MG/DL Total Protein 6.3 GM/DL Albumin 2.1 GM/DL Calcium Level 8.1 MG/DL Alkaline Phosphatase 72 U/L Aspartate Amino Transf (AST/SGOT) 24 U/L Alanine Aminotransferase (ALT/SGPT) 183 U/L Total Bilirubin 0.5 MG/DL Sodium Level 156 MEQ/L Potassium Level 3.4 MEQ/L Chloride Level 117 MEQ/L Carbon Dioxide Level 28.7 MEQ/L Anion Gap 10 MEQ/L Estimat Glomerular Filtration Rate 24 ML/MIN Imaging Last Impressions Chest X-Ray 06/09/17 0600 Signed Impressions: Service Date/Time: May 04:31 - CONCLUSION: Persistent bilateral lower lobe consolidation, left greater than right. Rudy Pollock MD Abdomen X-Ray 06/02/17 0000 Signed Impressions: Service Date/Time: May 10:18 - CONCLUSION: NG tip in stomach. Left basilar airspace disease. Elevated right hemidiaphragm. Bowel gas pattern demonstrates mild ileus Tc Varghese MD Liver Ultrasound 05/31/17 1434 Signed Impressions: Service Date/Time: Wednesday, May 31, 2017 14:40 - CONCLUSION: 1. Interval apparent hepatomegaly with diffusely increased hepatic echogenicity. Given the acuity of findings, findings may reflect acute hepatitis or congestive hepatopathy. 2. Persistently contracted gallbladder which accentuates the gallbladder wall with persistent gallbladder wall thickening and trace pericholecystic fluid. These findings are commonly seen in the setting of liver disease although differential considerations include acalculous cholecystitis. HIDA scan may be performed for better evaluation as clinically appropriate. 3. Andrew Kraft MD Lung Scan-VQ Nuclear Medicine 05/23/17 Signed Impressions: Service Date/Time: Tuesday, May 23, 2017 10:22 - CONCLUSION: Low probability of pulmonary embolism. Buddy Harrison MD FACR Lower Extremity Ultrasound 05/23/17 Signed Impressions: Service Date/Time: Tuesday, May 23, 2017 08:02 - CONCLUSION: Negative for deep venous thrombosis. Buddy Harrison MD FACR Head CT 05/23/17 Signed Impressions: Service Date/Time: Tuesday, May 23, 2017 03:56 - CONCLUSION: 1. Examination quality is degraded by motion artifact. 2. No definite acute finding is identified. There is a 3 mm punctate area of high density in the left frontal periventricular white matter. This could represent small focus of acute blood products. Suggest attention to this on followup imaging. Wiliam Buck MD Brain MRI 05/23/17 Signed Impressions: Service Date/Time: Tuesday, May 23, 2017 15:59 - CONCLUSION: 1. 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 2. No hemorrhage observe. 3. Pansinus disease. Rudy Cervantes Jr., MD Aorta CTA 05/23/17 Signed Impressions: Service Date/Time: Tuesday, May 23, 2017 03:58 - CONCLUSION: 1. 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 The dissection extends to the abdominal aorta and terminates in the common iliac arteries bilaterally. The abdominal vessels arise from both the true and false lumens and demonstrate good opacification. Suggest correlating with the patient's prior imaging study which documents the dissection. 2. 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 3. There is stranding of the periaortic fat adjacent to the arch aneurysm. 4. There are small bilateral pleural effusions, left larger than right, with bilateral volume loss and/or airspace consolidation bilaterally. Wiliam Buck MD Abdomen Ultrasound 05/23/17 0000 Signed Impressions: Service Date/Time: Tuesday, May 23, 2017 17:22 - CONCLUSION: 1. Gall bladder wall thickening and possible pericholecystic fluid without evidence of gallstones. May consider perform hepatic biliary tract scan to evaluate for acalculous cholecystitis. 2. No focal abnormality seen within the liver. Rudy Pollock MD Objective Remarks GENERAL: This is a 36-year-old well-developed well-nourished AA male resting in bed orotracheally intubated, and sedated SKIN: Warm and dry, adequately perfused. HEAD: Normocephalic. EYES: Pupils 3 mm and reactive. No scleral icterus. No injection or drainage. NECK: Supple, trachea midline. No JVD or lymphadenopathy. Left IJ CVL is clean dry and intact CARDIOVASCULAR: Distant. RRR. S1, S2 no S4. Cannot appreciate murmurs, clicks , gallops or rubs RESPIRATORY: Coarse rhonchorous crackles noted throughout all lung [place] anterior-posterior bilaterally. No wheezing GASTROINTESTINAL: Abdomen soft, non-tender, nondistended. Hypoactive bowel sounds are appreciated MUSCULOSKELETAL: No cyanosis. Edema 2+ bilateral upper and lower extremities NEURO: Currently sedated on Versed, propofol and fentanyl drips. Positive gag and corneal reflex. Positive cough. 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 On Fentanyl, Versed, Propofol infusion to maintain ventilator synchrony. Goal of RASS -2 Daily sedation vacation Acetaminophen 650 mg by tube every 6 hours as needed fever discontinued due to elevated transaminases Evaluated by neurology/Dr. Espinosa MRI brain 05/23 revealed bilateral frontal embolic CVA CT brain: There is a 3 mm punctate area of high density in the left frontal periventricular white matter. This could represent small focus of acute blood products. EEG : Mild diffuse encephalopathy, no seizure activity Continue aspirin 162 mg p.o. daily. Okayed with neurology. CV: Hypertensive emergency Acute type B aortic dissection Elevated troponin PEA cardiac arrest 05/23/17, secondary to obstructive sleep apnea/obesity hypoventilation syndrome with Bipap nonadherence. CTA stable. VQ scan negative . Hyperlipidemia Monitor HR and BP keep MAP>65mmHg Currently on carvedilol 25 mg twice daily Diltiazem 90 mg every 6 hours Clonidine 0.1 mg every 8 hours Repeat echo 05/23: EF 60-65%, no RWMA Evaluated by cardiology, Dr. Bhakta on 05/24 due to troponin elevation. He attributed elevated troponin to PEA arrest, hypoxia, renal insufficiency. No further ischemic workup planned at this time. 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 The dissection extends to the abdominal aorta and terminates in the common iliac arteries bilaterally. The abdominal vessels arise from both the true and false lumens and demonstrate good opacification. Vascular surgery is following- Dr. Thomas Thomas: Obstructive sleep apnea Obesity hypoventilation syndrome Acute hypercapnic respiratory failure intubated 05/30 Ventilator dependent respiratory failure PRVC RR 16, TV 500, IT:1.9, PEEP:12, FIO2: 50%, decrease PEEP:10 , FIO2 45% Ventilator bundle Bronchodilators, Duoneb Q4, Mucomyst nebs Off Flolan, solumederol 40mg Q12 Check CXR V/Q scan: low prob PE s/p bronch today showed mucous plugs/ thick secretions b/l, normal mucosa, no evidence of EBL, BAL performed RUL. Status post bronchoscopy 05/30 revealed no mucus plugging. Normal bronchial mucosa without lesions. No signs of bleeding. LEN negative Renal/: Nonoliguric acute kidney injury Rhabdo Electrolyte derangement Likely secondary to ischemic ATN following cardiac arrest. Off Diuretics due to worsening hypernatremia Renal function is improving with Cr: 3.52 from Cr:3.94, UOP: 2950ml in 24 hrs Renal is following- Dr. Flannery abdomen: No hydronephrosis. Change free water 300ml Q4, add D5W@50ml/hr monitor sodium level. GI: Elevated transaminases Hypoalbuminemia Hyperammonia Continue Nepro @ 55ml/hr-no residuals Famotidine 10 mg BID for GI prophylaxis Docusate/senna 1 tablet twice daily, polyethylene glycol 17 g twice daily and lactulose 30 cc twice daily for bowel regimen. Monitor LFT's (trending down),Hep profile is negative Abdominal ultrasound 05/31 - hepatic congestion. Contracted gallbladder with pericholecystic fluid. Possible acalculous cholecystitis recommend HIDA scan if clinically able. US abdomen: Gall bladder wall thickening and possible pericholecystic fluid without evidence of gallstones. Recommend HIDA scan if clinically indicated Lactulose 30 cc 4 times daily. GI following Heme: Persistent Leukocytosis Microcytic anemia Monitor CBC VQ scan negative 05/23 BLE u/s negative for DVT 05/23 ID: MSSA pneumonia Bandemia Abx per ID ( On Cefepime) Monitor for signs of infections ( Fever, WBC) ID is following- Pertinent: C-diff PCR negative on 06/04 and 06/09 06/08 -sputum -normal resp lizzie 05/31/13 -blood cultures 2 -pending 05/30 -bronchoscopy -no growth 05/30 -sputum -rare WBC/budding yeast 05/30 -blood cultures 2 -pending 05/25 -blood cultures 2 -no growth to date 05/25 -urine culture -no growth to date 05/23 -sputum -MSSA 05/23 -blood cultures 2 -no growth to date Endo: Currently on sliding scale insulin NovUlin R medium regimen every 6 hours sliding scale. TSH 2.3 MSK: Elevated BMI Weight loss encouraged PROPH: SCDs /Heparin subcut q 12 hours for DVT prophylaxis. ACCESS R IJ CVL 05/23- 05/31 Left IJ CVL placed 05/31 CCT 30 mins Abner Elizabeth MD Jun 10, 2017 08:45
[2017-06-10] MEDS ORDERED: POTASSIUM CHLOR 20 MEQ PREMIX 100 ML IV ONE (09:00)
[2017-06-10] MEDS: DOCUSATE SODIUM 50 MG/SENNA 8.6 MG TAB PO SCH ×2 (09:00→20:18)
[2017-06-10] MEDS: POLYETHYLENE GLYCOL 17 GM PKG NG SCH ×2 (09:00→20:18)
--- NOTE | 2017-06-10 10:11 | RADRPT ---
EXAM DATE/TIME: 06/10/2017 09:18 [place] COMPARISON: CHEST SINGLE AP, June 09, 2017, 4:31. INDICATIONS : Shortness of breath. MEDICAL HISTORY : Unresponsive. SURGICAL HISTORY : Unresponsive. ENCOUNTER: Subsequent ACUITY: 1 month PAIN SCORE: Non-responsive. LOCATION: Bilateral chest FINDINGS: Single portable frontal view of the chest show some improvement in the bibasilar consolidations. Left remains worse than the right. No effusions. Heart is normal in size. Tip of the endotracheal tube 5 cm proximal to the julee. Nasogastric tube and left-sided central line noted. CONCLUSION: Some improvement in the bibasilar consolidations. Rudy Cervantes Jr., MD on June 10, 2017 at 10:03 Board Certified Radiologist. This report was verified electronically.
--- NOTE | 2017-06-10 16:42 | HHI.NPPN ---
Subjective History of Present Illness 36 year old with Aortic dissection ARF Additional Remarks Patient remains intubated Objective Data Data 06/10/17 06/11/17 19:00 07:00 Intake Total 400 ml Balance 400 ml IV Total 400 ml Vital Signs Date Time Temp Pulse Resp B/P (MAP) Pulse Ox O2 Delivery O2 Flow Rate FiO2 06/10/17 16:00 99.3 100 24 171/74 (106) 93 06/10/17 16:00 40 06/10/17 15:45 103 26 173/79 (110) 94 06/10/17 15:30 95 40 06/10/17 15:30 95 24 144/67 (92) 94 06/10/17 15:15 91 24 139/64 (89) 95 06/10/17 15:00 91 26 133/56 (81) 95 06/10/17 14:45 97 25 144/73 (96) 96 06/10/17 14:31 88 22 131/60 (83) 96 06/10/17 14:15 84 22 124/60 (81) 95 06/10/17 14:00 85 22 119/55 (76) 94 06/10/17 13:45 84 24 143/67 (92) 94 06/10/17 13:30 83 24 138/63 (88) 93 06/10/17 13:15 84 24 132/56 (81) 93 06/10/17 13:00 83 24 137/63 (87) 94 06/10/17 12:45 83 24 132/60 (84) 94 06/10/17 12:30 86 24 143/64 (90) 95 06/10/17 12:15 85 18 150/69 (96) 95 06/10/17 12:00 98.4 80 18 136/64 (88) 95 06/10/17 12:00 50 06/10/17 11:45 81 18 130/63 (85) 95 06/10/17 11:30 95 45 06/10/17 11:30 78 18 125/59 (81) 94 06/10/17 11:15 79 18 122/57 (78) 94 06/10/17 11:00 79 18 124/60 (81) 94 06/10/17 10:30 78 18 125/58 (80) 95 06/10/17 10:15 79 18 123/56 (78) 96 06/10/17 10:00 80 18 128/60 (82) 95 06/10/17 09:45 81 18 132/63 (86) 96 06/10/17 09:30 83 18 140/65 (90) 96 06/10/17 09:15 84 18 135/64 (87) 96 06/10/17 09:00 86 18 138/60 (86) 97 06/10/17 08:45 90 19 136/65 (88) 97 06/10/17 08:30 90 16 131/62 (85) 94 06/10/17 08:15 79 16 123/60 (81) 97 06/10/17 08:13 98 50 06/10/17 08:00 98.6 77 17 119/55 (76) 96 06/10/17 08:00 50 06/10/17 07:45 77 16 121/57 (78) 96 06/10/17 07:30 78 16 106/56 (73) 93 06/10/17 07:15 78 16 125/60 (81) 97 06/10/17 07:00 79 16 126/60 (82) 98 06/10/17 04:56 96 50 06/10/17 04:00 50 06/10/17 04:00 97.6 73 16 128/60 (82) 94 06/10/17 00:28 94 50 06/10/17 00:00 98.0 74 16 130/60 (83) 93 06/10/17 00:00 50 06/09/17 21:46 93 50 06/09/17 20:00 97.7 72 16 129/56 (80) 94 06/09/17 20:00 50 06/09/17 19:00 50 06/09/17 19:00 95 Mechanical Ventilator 50 -: 06/10/17 0556 06/10/17 0556 Physical Exam General Appearance: Well Developed Eyes Eye Exam: Pupils Equal Neck Neck Exam: Neck Supple Pulmonary Resp Exam: Clear Bilaterally Cardiology CV Exam: Regular, Normal Sinus Rhythm Gastrointestinal/Abdomen GI Exam: Soft, Non-Tender Genitourinary Exam: Clear Urine Integumentary Skin Exam: Intact Extremeties Extremities Exam: Moderate Edema, Pitting Edema, Dependent Edema Assessment/Plan Problem List: (1) Acute renal failure ICD Codes: N17.9 - Acute kidney failure, unspecified Plan: He has large dissection of aorta continue to monitor he is passing urine , creatinine he did receive IV contrast repeat CTA Dissection up to Common Iliac arteries seen with true and false lumen perfused Cr 5.6-> 5.7 -> 5.7 -> 5.3 -> 5 -> 4.4-. 3.9-> 3.5 non oliguric, off all diuretics Getting d5w 50 cc/hr Sodium 156 BUN decreased slightly Patient has good urine out. (2) Dissection of aorta, thoracoabdominal ICD Codes: I71.03 - Dissection of thoracoabdominal aorta Status: Acute Plan: vascular is following Renal arteries remains perfused Roz Flannery MD Jun 10, 2017 16:42
[2017-06-10] MEDS: CEFEPIME INJ 2,000 MG in SODIUM CHLORIDE 0.9% INJ 100 ML IV SCH (17:05)
[2017-06-11] VITALS (16 sets, daily range): BP systolic 113–142; BP diastolic 58–65; PULSE 79–98; RESP 16–37; TEMP 98.2–99.5; O2SAT 93–99
[2017-06-11] MEDS: methylPREDNISolone SOD SUCC 40 MG/1 ML VIAL IV PUSH SCH ×3 (00:39→21:32)
[2017-06-11] MEDS: DILTIAZEM HCL 90 MG TAB PO SCH ×4 (00:40→18:25)
[2017-06-11] MEDS: RESP: ALBUTEROL 2.5 MG/3 ML NEB (PRN) NEB (02:07)
[2017-06-11] MEDS: fentaNYL DRIP 250 ML IV PRN ×2 (02:42→18:38)
[2017-06-11] MEDS: PROPOFOL 1000 MG/100 ML INJ 100 ML IV PRN ×5 (02:42→18:36)
[2017-06-11] MEDS: METOPROLOL TARTRATE 5 MG/5 ML VIAL IV PUSH PRN ×2 (02:43→09:51)
[2017-06-11] MEDS: hydrALAZINE HCL 20 MG/ML VIAL IV PUSH PRN ×2 (02:43→10:44)
[2017-06-11] MEDS: CHLORHEXIDINE GLUCONATE 2 % 1 PACK (2 CLOTHS) TOP SCH (04:00)
[2017-06-11] MEDS: FREE WATER G-TUBE SCH ×6 (04:00→20:00)
[2017-06-11] MEDS: DEXTROSE 5% IN WATE 1000ML INJ 1,000 ML IV SCH ×2 (04:30→18:29)
[2017-06-11] MEDS: ARTIFICIAL TEARS OPTH SOLN 15 ML BTL EACH EYE SCH ×3 (05:34→22:00)
[2017-06-11] MEDS: cloNIDine HCL 0.1 MG TAB PO SCH ×3 (05:54→21:58)
[2017-06-11] MEDS: INSULIN NovoLIN REGULAR SUPPLEMENTAL SCALE SQ SCH ×4 (06:00→18:26)
[2017-06-11 06:42] LABS: AUTOMATED NEUTROPHIL # 10.1 TH/MM3 (1.8-7.7); BASOPHIL % 0.3 % (0.0-2.0); EOSINOPHIL # 0.2 TH/MM3 (0-0.4); EOSINOPHIL % 1.7 % (0.0-4.0); HEMATOCRIT 28.6 % (39.0-51.0); HEMOGLOBIN 9.4 GM/DL (13.0-17.0); LYMPH % 13.3 % (9.0-44.0); LYMPHOCYTE # 1.8 TH/MM3 (1.0-4.8); MEAN CELL VOLUME 82.5 FL (80.0-100.0); MEAN CORPUSCULAR HEMOGLOBIN 27.2 PG (27.0-34.0); MEAN CORPUSCULAR HGB CONC 32.9 % (32.0-36.0); MEAN PLATELET VOLUME 9.3 FL (7.0-11.0); MONO % 10.2 % (0.0-8.0); MONOCYTE # 1.4 TH/MM3 (0-0.9); NEUT % 74.5 % (16.0-70.0); PLATELET COUNT 281 TH/MM3 (150-450); RED BLOOD COUNT 3.47 MIL/MM3 (4.50-5.90); RED CELL DISTRIBUTION WIDTH 17.3 % (11.6-17.2); WHITE BLOOD COUNT 13.6 TH/MM3 (4.0-11.0)
[2017-06-11 06:59] LABS: ALBUMIN 2.3 GM/DL (3.4-5.0); AST (GOT) 24 U/L (15-37); BICARBONATE 28.2 MEQ/L (21.0-32.0); BLOOD UREA NITROGEN 120 MG/DL (7-18); CALCIUM 8.5 MG/DL (8.5-10.1); CHLORIDE 116 MEQ/L (98-107); CREATININE 3.16 MG/DL (0.60-1.30); GLOMERULAR FILTRATION RATE 27 ML/MIN (>89); GLUCOSE,RANDOM 135 MG/DL (74-106); SODIUM (NA) 154 MEQ/L (136-145)
[2017-06-11 07:00] LABS: ALT (GPT) 157 U/L (12-78)
[2017-06-11 07:02] LABS: ALKALINE PHOSPHATASE 72 U/L (45-117); TOTAL BILIRUBIN ADULT 0.6 MG/DL (0.2-1.0); TOTAL PROTEIN 6.6 GM/DL (6.4-8.2)
--- NOTE | 2017-06-11 07:20 | HHI.CCPN ---
Subjective Remarks/Hospital Course 05/19: Is a 36-year-old male with a history of hypertension who is on vacation from the [place] area who did not take his antihypertensives today because he is on vacation, and was having sexual intercourse when he had sudden onset of severe substernal radiating to the back chest pain earlier today. 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 He was emergently transferred to [facility] for further management. I evaluated the patient on arrival to the ICU by EVAC. Patient denies abdominal pain. Still endorses chest pain although this is improving. Patient denies any other symptoms. CT chest abdomen pelvis was reviewed and reviewed with myself and Dr. Guzman and does demonstrate a type B dissection. 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 Initial laboratory evidence demonstrates a lactate of 1.3, creatinine 1.2, normal LFTs. 05/20: On home C Pap. Urine output 30 cc/h currently. Remains on esmolol and labetalol drips. Remains drowsy though arousable. +4.4 L 05/21: Resting comfortably on nasal cannula. Awake and alert currently. Denies any shortness of breath or chest pain currently. 05/22: AAO x3, resting comfortably. 05/23 Patient went into PEA arrest early this morning now sedated with Diprivan and intubated. Off Esmolol drip. 05/24 Patient is sedated with Diprivan and intubated. On Labetolol drip. MRI brain yesterday showed multiple small infracts, no hemorrhage. 05/25 Patient remains intubated and sedated. T: 100.5 last night. Renal function is worsening with Cr: 3.6 from 3.4 and UOP: 2650ml in 24 hrs. 05/26 No events overnight. Sedated and intubated. Afebrile. Cr: 3.62 , UOP: 1950ml in 24 hrs 05/27 Patient was extubated yesterday placed on BIPAP overnight. Cr: 3.42 today , UOP: 1800 ml in 24 hrs 05/28 Extubated yesterday and per report was compliant with Bipap overnight Remains on esmolol drip 200 mcg/kg/min and SBP in 140s. ZULY, probable ATN non- oliguric however I>>0 with significant intake from MIVF as well as 180 mL/hr from esmolol drip. IVF d/c per nephrology and transitioning off esmolol to minimize fluid. Hugo now per my discussion with Dr. Thornton. He is tachypneic, obtained ABG with hypercapnea on simple mask. Placing On Bipap. at bedside requesting eventual transfer to [place], though she realized he is not stable for that yet. 05/29: Remains on BiPAP since 299 with increasing respiratory rates. Will attempt a more aggressive diuresis. We started on esmolol drip due to persistent tachycardia and unable to reach target blood pressure and heart rate requirements. At high risk for reintubation. 05/30: Remained hypotensive overnight. This a.m. desaturated, tachypneic requiring high percent on BiPAP hence intubated by micro lab analyst. Will require bronchoscopy this afternoon. Continue with aggressive diuresis. Broad antibiotic coverage. Start tube feeding. The systolic blood pressure better controlled while intubated on propofol and fentanyl drips. 05/31: T-max 102.8. Currently 99.6. FiO2 down to 80%. The same noted elevated transaminases AST of 2674. ALT of 1590. Creatinine is increased to 3.07 to 4.36. +2 L past 24 hours. One bowel movement. Noted prior gallbladder wall thickening on previous ultrasound. We will repeat today Subjective 06/01: T-max 102.5. Currently 98.9. Desaturate overnight resolved currently FiO2 of 80%. 4500 cc urine output. Creatinine continues to rise currently 4.9. CPK currently 6165. We will discontinue propofol with hepatomegaly, rhabdomyolysis possibly indicative propofol infusion syndrome. 06/02 Patient remains intubated and sedated. On Fentanyl, Versed and Nimbex. T: 100.0 at midnight. On PC/AC with PEEP:15, FIO2 50% Renal function continue to decline with Cr: 5.40 from 4.91 and UOP: 2895 ml in 24 hrs 06/03 Patient remains intubated and sedated with Versed, Fentanyl drips. Remains on Nimbex and Flolan. Cr: 5.6 from 5.4 with UOP: 3790 ml in 24 hrs. 06/04:Afebrile. Overnight the patient had an episode of hypotension during the and all sedation was briefly discontinued, then resumed for ventilator synchrony. Clonidine dosage decreased. Patient continues on pressure control mode, and Flolan for adequate oxygenation. Creatinine noted to be 5.7 weight urine output 3220cc/24 hrs. 06/05: Afebrile. This x-ray revealed improving area aeration of the right hemithorax. PEEP decreased this a.m. to 12, patient continues on FiO2 55% and Flolan, planned weaning. Electrolytes currently being replaced. Elevated liver enzymes continue to down trend. 06/06: Respiratory requirements decreasing, patient now on Flolan 10 ng/kg/min with FiO2 at 60%, maintaining O2 saturation 92%. Creatinine continues to down trend. Leukocytosis improving. 06/07: Flolan discontinued, FIO2 65%. Propofol added to maintain ventilator synchrony. Patient currently on 10 mg of Versed and 250 mics of fentanyl. Wound care was consulted for skin breakdown on buttocks secondary to multiple bowel movements, patient continues on Avani bed. 06/08: No acute events overnight. Flolan discontinued greater than 18 hours patient's O2 saturation 97% on FiO2 of 65. FiO2 requirements decreased the patient continues on a PEEP of 12. Free water flushes added to medication regimen secondary to hypernatremia, sodium level 156 today. 06/09 Patient remains sedated and intubated. Afebrile. 06/10 Patient is sedated with Versed, Diprivan and Fentanyl drips, intubated. Afebrile. renal function is improving with Cr: 3.52 from 3.94 06/11 No events overnight. Sedated with Diprivan and Fentanyl drips. Off Versed. renal function continue to improve with Cr:3.16 from 3.52. Objective Vital Signs Date Time Temp Pulse Resp B/P (MAP) Pulse Ox O2 Delivery O2 Flow Rate FiO2 06/11/17 04:00 98.7 87 16 119/60 (79) 97 06/11/17 04:00 40 06/09/17 19:00 Mechanical Ventilator 06/09/17 07:00 8.00 Intake and Output 06/11/17 06/11/17 06/11/17 07:59 15:59 23:59 Intake Total 2613 ml Output Total 1800 ml Balance 813 ml Result Diagram: 06/11/17 0610 06/11/17 0610 Other Results Laboratory Tests Test 06/11/17 06:10 White Blood Count 13.6 TH/MM3 Red Blood Count 3.47 MIL/MM3 Hemoglobin 9.4 GM/DL Hematocrit 28.6 % Mean Corpuscular Volume 82.5 FL Mean Corpuscular Hemoglobin 27.2 PG Mean Corpuscular Hemoglobin Concent 32.9 % Red Cell Distribution Width 17.3 % Platelet Count 281 TH/MM3 Mean Platelet Volume 9.3 FL Neutrophils (%) (Auto) 74.5 % Lymphocytes (%) (Auto) 13.3 % Monocytes (%) (Auto) 10.2 % Eosinophils (%) (Auto) 1.7 % Basophils (%) (Auto) 0.3 % Neutrophils # (Auto) 10.1 TH/MM3 Lymphocytes # (Auto) 1.8 TH/MM3 Monocytes # (Auto) 1.4 TH/MM3 Eosinophils # (Auto) 0.2 TH/MM3 Basophils # (Auto) 0.0 TH/MM3 CBC Comment DIFF FINAL Differential Comment Blood Urea Nitrogen 120 MG/DL Creatinine 3.16 MG/DL Random Glucose 135 MG/DL Total Protein 6.6 GM/DL Albumin 2.3 GM/DL Calcium Level 8.5 MG/DL Alkaline Phosphatase 72 U/L Aspartate Amino Transf (AST/SGOT) 24 U/L Alanine Aminotransferase (ALT/SGPT) 157 U/L Total Bilirubin 0.6 MG/DL Sodium Level 154 MEQ/L Potassium Level 3.4 MEQ/L Chloride Level 116 MEQ/L Carbon Dioxide Level 28.2 MEQ/L Anion Gap 10 MEQ/L Estimat Glomerular Filtration Rate 27 ML/MIN Imaging Last Impressions Chest X-Ray 06/10/17 0000 Signed Impressions: Service Date/Time: Saturday, June 10, 2017 09:18 - CONCLUSION: Some improvement in the bibasilar consolidations. Rudy Cervantes Jr., MD Abdomen X-Ray 06/02/17 0000 Signed Impressions: Service Date/Time: May 10:18 - CONCLUSION: NG tip in stomach. Left basilar airspace disease. Elevated right hemidiaphragm. Bowel gas pattern demonstrates mild ileus Tc Varghese MD Liver Ultrasound 05/31/17 1434 Signed Impressions: Service Date/Time: Wednesday, May 31, 2017 14:40 - CONCLUSION: 1. Interval apparent hepatomegaly with diffusely increased hepatic echogenicity. Given the acuity of findings, findings may reflect acute hepatitis or congestive hepatopathy. 2. Persistently contracted gallbladder which accentuates the gallbladder wall with persistent gallbladder wall thickening and trace pericholecystic fluid. These findings are commonly seen in the setting of liver disease although differential considerations include acalculous cholecystitis. HIDA scan may be performed for better evaluation as clinically appropriate. 3. Andrew Kraft MD Lung Scan-VQ Nuclear Medicine 05/23/17 Signed Impressions: Service Date/Time: Tuesday, May 23, 2017 10:22 - CONCLUSION: Low probability of pulmonary embolism. Buddy Harrison MD FACR Lower Extremity Ultrasound 05/23/17 Signed Impressions: Service Date/Time: Tuesday, May 23, 2017 08:02 - CONCLUSION: Negative for deep venous thrombosis. Buddy Harrison MD FACR Head CT 05/23/17 Signed Impressions: Service Date/Time: Tuesday, May 23, 2017 03:56 - CONCLUSION: 1. Examination quality is degraded by motion artifact. 2. No definite acute finding is identified. There is a 3 mm punctate area of high density in the left frontal periventricular white matter. This could represent small focus of acute blood products. Suggest attention to this on followup imaging. Wiliam Buck MD Brain MRI 05/23/17 Signed Impressions: Service Date/Time: Tuesday, May 23, 2017 15:59 - CONCLUSION: 1. 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 2. No hemorrhage observe. 3. Pansinus disease. Rudy Cervantes Jr., MD Aorta CTA 05/23/17 Signed Impressions: Service Date/Time: Tuesday, May 23, 2017 03:58 - CONCLUSION: 1. 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 The dissection extends to the abdominal aorta and terminates in the common iliac arteries bilaterally. The abdominal vessels arise from both the true and false lumens and demonstrate good opacification. Suggest correlating with the patient's prior imaging study which documents the dissection. 2. 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 3. There is stranding of the periaortic fat adjacent to the arch aneurysm. 4. There are small bilateral pleural effusions, left larger than right, with bilateral volume loss and/or airspace consolidation bilaterally. Wiliam Buck MD Abdomen Ultrasound 05/23/17 0000 Signed Impressions: Service Date/Time: Tuesday, May 23, 2017 17:22 - CONCLUSION: 1. Gall bladder wall thickening and possible pericholecystic fluid without evidence of gallstones. May consider perform hepatic biliary tract scan to evaluate for acalculous cholecystitis. 2. No focal abnormality seen within the liver. Rudy Pollock MD Objective Remarks GENERAL: This is a 36-year-old well-developed well-nourished AA male resting in bed orotracheally intubated, and sedated SKIN: Warm and dry, adequately perfused. HEAD: Normocephalic. EYES: Pupils 3 mm and reactive. No scleral icterus. No injection or drainage. NECK: Supple, trachea midline. No JVD or lymphadenopathy. Left IJ CVL is clean dry and intact CARDIOVASCULAR: Distant. RRR. S1, S2 no S4. Cannot appreciate murmurs, clicks , gallops or rubs RESPIRATORY: Coarse rhonchorous crackles noted throughout all lung [place] anterior-posterior bilaterally. No wheezing GASTROINTESTINAL: Abdomen soft, non-tender, nondistended. Hypoactive bowel sounds are appreciated MUSCULOSKELETAL: No cyanosis. Edema 2+ bilateral upper and lower extremities NEURO: Currently sedated on Versed, propofol and fentanyl drips. Positive gag and corneal reflex. Positive cough. 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 On Fentanyl, Propofol infusion to maintain ventilator synchrony. Goal of RASS -2 Daily sedation vacation Acetaminophen 650 mg by tube every 6 hours as needed fever discontinued due to elevated transaminases Evaluated by neurology/Dr. Espinosa MRI brain 05/23 revealed bilateral frontal embolic CVA CT brain: There is a 3 mm punctate area of high density in the left frontal periventricular white matter. This could represent small focus of acute blood products. EEG : Mild diffuse encephalopathy, no seizure activity Continue aspirin 162 mg p.o. daily. Okayed with neurology. CV: Hypertensive emergency Acute type B aortic dissection Elevated troponin PEA cardiac arrest 05/23/17, secondary to obstructive sleep apnea/obesity hypoventilation syndrome with Bipap nonadherence. CTA stable. VQ scan negative . Hyperlipidemia Monitor HR and BP keep MAP>65mmHg Currently on carvedilol 25 mg twice daily Diltiazem 90 mg every 6 hours Clonidine 0.1 mg every 8 hours Repeat echo 05/23: EF 60-65%, no RWMA Evaluated by cardiology, Dr. Bhakta on 05/24 due to troponin elevation. He attributed elevated troponin to PEA arrest, hypoxia, renal insufficiency. No further ischemic workup planned at this time. 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 The dissection extends to the abdominal aorta and terminates in the common iliac arteries bilaterally. The abdominal vessels arise from both the true and false lumens and demonstrate good opacification. Vascular surgery is following- Dr. Thomas Thomas: Obstructive sleep apnea Obesity hypoventilation syndrome Acute hypercapnic respiratory failure intubated 05/30 Ventilator dependent respiratory failure PRVC RR 16, TV 500, IT:1.0, PEEP:10, FIO2: 40%, decrease PEEP:5 Ventilator bundle Bronchodilators, Duoneb Q4, Mucomyst nebs Off Flolan, solumederol 40mg Q12 CXR 06/10: Some improvement in the bibasilar consolidations V/Q scan: low prob PE s/p bronch today showed mucous plugs/ thick secretions b/l, normal mucosa, no evidence of EBL, BAL performed RUL. Status post bronchoscopy 05/30 revealed no mucus plugging. Normal bronchial mucosa without lesions. No signs of bleeding. LEN negative Renal/: Nonoliguric acute kidney injury Rhabdo Electrolyte derangement Likely secondary to ischemic ATN following cardiac arrest. Off Diuretics due to worsening hypernatremia Renal function is improving with Cr:: 06/03 from 3.52 Renal is following- Dr. Flannery abdomen: No hydronephrosis. On free water 300ml Q4, increase D5W@75ml/hr monitor sodium level. GI: Elevated transaminases Hypoalbuminemia Hyperammonia Continue Nepro @ 55ml/hr-no residuals Famotidine 10 mg BID for GI prophylaxis Docusate/senna 1 tablet twice daily, polyethylene glycol 17 g twice daily and lactulose 30 cc twice daily for bowel regimen. Monitor LFT's (trending down),Hep profile is negative Abdominal ultrasound 05/31 -market hepatic congestion. Contracted gallbladder with pericholecystic fluid. Possible acalculous cholecystitis recommend HIDA scan if clinically able. US abdomen: Gall bladder wall thickening and possible pericholecystic fluid without evidence of gallstones. Recommend HIDA scan if clinically indicated Lactulose 30 cc 4 times daily. GI following Heme: Persistent Leukocytosis Microcytic anemia Monitor CBC VQ scan negative 05/23 BLE u/s negative for DVT 05/23 ID: MSSA pneumonia Abx per ID ( On Cefepime) Monitor for signs of infections ( Fever, WBC) ID is following- Pertinent: C-diff PCR negative on 06/04 and 06/09 06/08 -sputum -normal resp lizzie 05/31/13 -blood cultures 2 -pending 05/30 -bronchoscopy -no growth 05/30 -sputum -rare WBC/budding yeast 05/30 -blood cultures 2 -pending 05/25 -blood cultures 2 -no growth to date 05/25 -urine culture -no growth to date 05/23 -sputum -MSSA 05/23 -blood cultures 2 -no growth to date Endo: Currently on sliding scale insulin NovUlin R medium regimen every 6 hours sliding scale. TSH 2.3 MSK: Elevated BMI Weight loss encouraged PROPH: SCDs /Heparin subcut q 12 hours for DVT prophylaxis. ACCESS R IJ CVL 05/23- 05/31 Left IJ CVL placed 05/31 Level 3 Abner Elizabeth MD Jun 11, 2017 07:20
[2017-06-11] MEDS ORDERED: POTASSIUM CHLOR 20 MEQ PREMIX 100 ML IV ONE (08:00)
[2017-06-11] MEDS: HEPARIN SODIUM - SQ 10,000 UNITS/ML VIAL SQ SCH ×2 (08:24→21:32)
[2017-06-11] MEDS: FAMOTIDINE 20 MG/2 ML VIAL IV PUSH SCH ×2 (08:24→21:31)
[2017-06-11] MEDS: LABETALOL HCL 100 MG/20 ML VIAL IV PUSH PRN ×2 (08:24→16:13)
[2017-06-11] MEDS: CARVEDILOL 12.5 MG TAB PO SCH ×2 (08:24→21:31)
[2017-06-11] MEDS: ASPIRIN 81 MG CHEW TAB CHEW SCH (08:25)
[2017-06-11] MEDS: CHLORHEXIDINE 0.12% (ORAL KIT) 15 ML CUP MT SCH ×2 (08:25→16:00)
[2017-06-11] MEDS: SODIUM CHLORIDE 0.9% FLUSH 10 ML FLUSH IV FLUSH SCH (08:26)
[2017-06-11] MEDS ORDERED: DEXMEDETOMIDINE INJ 200 MCG in SODIUM CHLORIDE 0.9% INJ 50 ML IV PRN (11:00)
--- NOTE | 2017-06-11 12:58 | HHI.NPPN ---
Subjective History of Present Illness 36 year old with Aortic dissection ARF Additional Remarks Patient remains intubated Objective Data Data Vital Signs Date Time Temp Pulse Resp B/P (MAP) Pulse Ox O2 Delivery O2 Flow Rate FiO2 06/11/17 10:24 99 40 06/11/17 08:32 96 40 06/11/17 08:05 97 40 06/11/17 08:05 40 06/11/17 08:00 99.1 88 37 138/63 (88) 95 06/11/17 04:00 98.7 87 16 119/60 (79) 97 06/11/17 04:00 40 06/11/17 03:59 97 40 06/11/17 01:00 79 16 113/58 (76) 97 06/11/17 00:00 40 06/11/17 00:00 84 16 127/64 (85) 97 06/11/17 00:00 40 06/10/17 23:55 98 40 06/10/17 22:00 81 16 118/58 (78) 95 06/10/17 20:00 99.4 88 16 142/61 (88) 95 06/10/17 19:38 99 40 06/10/17 16:00 99.3 100 24 171/74 (106) 93 06/10/17 16:00 40 06/10/17 15:45 103 26 173/79 (110) 94 06/10/17 15:30 95 40 06/10/17 15:30 95 24 144/67 (92) 94 06/10/17 15:15 91 24 139/64 (89) 95 06/10/17 15:00 91 26 133/56 (81) 95 06/10/17 14:45 97 25 144/73 (96) 96 06/10/17 14:31 88 22 131/60 (83) 96 06/10/17 14:15 84 22 124/60 (81) 95 06/10/17 14:00 85 22 119/55 (76) 94 06/10/17 13:45 84 24 143/67 (92) 94 06/10/17 13:30 83 24 138/63 (88) 93 06/10/17 13:15 84 24 132/56 (81) 93 06/10/17 13:00 83 24 137/63 (87) 94 -: 06/11/17 0610 06/11/17 0610 Physical Exam General Appearance: Well Developed Eyes Eye Exam: Pupils Equal Neck Neck Exam: Neck Supple Pulmonary Resp Exam: Clear Bilaterally Cardiology CV Exam: Regular, Normal Sinus Rhythm Gastrointestinal/Abdomen GI Exam: Soft, Non-Tender Genitourinary Exam: Clear Urine Integumentary Skin Exam: Intact Extremeties Extremities Exam: Moderate Edema, Pitting Edema, Dependent Edema Assessment/Plan Problem List: (1) Acute renal failure ICD Codes: N17.9 - Acute kidney failure, unspecified Plan: He has large dissection of aorta continue to monitor he is passing urine , creatinine he did receive IV contrast repeat CTA Dissection up to Common Iliac arteries seen with true and false lumen perfused Cr 5.6-> 5.7 -> 5.7 -> 5.3 -> 5 -> 4.4-. 3.9-> 3.5 ->3.16 non oliguric, off all diuretics Getting d5w 75cc/hr water 300 ml q 4 Sodium 154 BUN decreased slightly K replaced Patient has good urine out. (2) Dissection of aorta, thoracoabdominal ICD Codes: I71.03 - Dissection of thoracoabdominal aorta Status: Acute Plan: vascular is following Renal arteries remains perfused Roz Flannery MD Jun 11, 2017 12:58
[2017-06-11] MEDS: CEFEPIME INJ 2,000 MG in SODIUM CHLORIDE 0.9% INJ 100 ML IV SCH (18:25)
[2017-06-11] MEDS: DEXMEDETOMIDINE INJ 1,000 MCG in SODIUM CHLOR 0.9% 250 ML INJ 240 ML IV PRN (20:00)
[2017-06-12] VITALS (21 sets, daily range): BP systolic 142–189; BP diastolic 64–84; PULSE 86–100; RESP 0–22; TEMP 97.8–100.9; O2SAT 93–98
[2017-06-12] MEDS: PROPOFOL 1000 MG/100 ML INJ 100 ML IV PRN ×7 (00:01→21:54)
[2017-06-12] MEDS: DILTIAZEM HCL 90 MG TAB PO SCH ×4 (00:09→17:03)
[2017-06-12] MEDS: INSULIN NovoLIN REGULAR SUPPLEMENTAL SCALE SQ SCH ×4 (00:09→17:04)
[2017-06-12] MEDS: FREE WATER G-TUBE SCH ×6 (04:00→20:00)
[2017-06-12] MEDS: CHLORHEXIDINE GLUCONATE 2 % 1 PACK (2 CLOTHS) TOP SCH (04:00)
[2017-06-12] MEDS: hydrALAZINE HCL 20 MG/ML VIAL IV PUSH PRN ×4 (04:34→18:20)
[2017-06-12 06:45] LABS: AUTOMATED NEUTROPHIL # 10.8 TH/MM3 (1.8-7.7); BASOPHIL % 0.3 % (0.0-2.0); HEMOGLOBIN 8.7 GM/DL (13.0-17.0); LYMPH % 8.5 % (9.0-44.0); LYMPHOCYTE # 1.1 TH/MM3 (1.0-4.8); MEAN CELL VOLUME 82.3 FL (80.0-100.0); MEAN CORPUSCULAR HEMOGLOBIN 26.6 PG (27.0-34.0); MEAN CORPUSCULAR HGB CONC 32.2 % (32.0-36.0); MEAN PLATELET VOLUME 9.6 FL (7.0-11.0); MONO % 5.6 % (0.0-8.0); MONOCYTE # 0.7 TH/MM3 (0-0.9); NEUT % 85.6 % (16.0-70.0); PLATELET COUNT 239 TH/MM3 (150-450); RED BLOOD COUNT 3.28 MIL/MM3 (4.50-5.90); RED CELL DISTRIBUTION WIDTH 17.1 % (11.6-17.2); WHITE BLOOD COUNT 12.6 TH/MM3 (4.0-11.0)
[2017-06-12] MEDS: cloNIDine HCL 0.1 MG TAB PO SCH ×2 (07:21→13:27)
[2017-06-12] MEDS: ARTIFICIAL TEARS OPTH SOLN 15 ML BTL EACH EYE SCH ×3 (07:21→23:00)
[2017-06-12 07:27] LABS: ALBUMIN 2.3 GM/DL (3.4-5.0); ALKALINE PHOSPHATASE 64 U/L (45-117); ALT (GPT) 121 U/L (12-78); AST (GOT) 24 U/L (15-37); BICARBONATE 27.5 MEQ/L (21.0-32.0); BLOOD UREA NITROGEN 115 MG/DL (7-18); CHLORIDE 117 MEQ/L (98-107); CREATININE 2.74 MG/DL (0.60-1.30); GLOMERULAR FILTRATION RATE 32 ML/MIN (>89); GLUCOSE,RANDOM 224 MG/DL (74-106); MAGNESIUM 2.5 MG/DL (1.5-2.5); PHOSPHORUS 3.6 MG/DL (2.5-4.9); SODIUM (NA) 155 MEQ/L (136-145); TOTAL BILIRUBIN ADULT 0.5 MG/DL (0.2-1.0); TOTAL PROTEIN 6.3 GM/DL (6.4-8.2)
[2017-06-12] MEDS: CHLORHEXIDINE 0.12% (ORAL KIT) 15 ML CUP MT SCH ×2 (08:00→22:58)
[2017-06-12] MEDS: CARVEDILOL 12.5 MG TAB PO SCH ×2 (08:30→23:00)
[2017-06-12] MEDS: HEPARIN SODIUM - SQ 10,000 UNITS/ML VIAL SQ SCH ×2 (08:30→23:00)
[2017-06-12] MEDS: FAMOTIDINE 20 MG/2 ML VIAL IV PUSH SCH ×2 (08:30→22:59)
[2017-06-12] MEDS: ASPIRIN 81 MG CHEW TAB CHEW SCH (08:31)
[2017-06-12] MEDS: methylPREDNISolone SOD SUCC 40 MG/1 ML VIAL IV PUSH SCH ×2 (08:31→22:59)
[2017-06-12] MEDS: SODIUM CHLORIDE 0.9% FLUSH 10 ML FLUSH IV FLUSH SCH (08:31)
[2017-06-12] MEDS: LABETALOL HCL 100 MG/20 ML VIAL IV PUSH PRN ×2 (08:32→12:16)
[2017-06-12] MEDS: METOPROLOL TARTRATE 5 MG/5 ML VIAL IV PUSH PRN ×5 (08:49→17:03)
--- NOTE | 2017-06-12 10:00 | HHI.CCPN ---
Subjective Remarks/Hospital Course 05/19: Is a 36-year-old male with a history of hypertension who is on vacation from the [place] area who did not take his antihypertensives today because he is on vacation, and was having sexual intercourse when he had sudden onset of severe substernal radiating to the back chest pain earlier today. 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 He was emergently transferred to [facility] for further management. I evaluated the patient on arrival to the ICU by EVAC. Patient denies abdominal pain. Still endorses chest pain although this is improving. Patient denies any other symptoms. CT chest abdomen pelvis was reviewed and reviewed with myself and Dr. Guzman and does demonstrate a type B dissection. 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 Initial laboratory evidence demonstrates a lactate of 1.3, creatinine 1.2, normal LFTs. 05/20: On home C Pap. Urine output 30 cc/h currently. Remains on esmolol and labetalol drips. Remains drowsy though arousable. +4.4 L 05/21: Resting comfortably on nasal cannula. Awake and alert currently. Denies any shortness of breath or chest pain currently. 05/22: AAO x3, resting comfortably. 05/23 Patient went into PEA arrest early this morning now sedated with Diprivan and intubated. Off Esmolol drip. 05/24 Patient is sedated with Diprivan and intubated. On Labetolol drip. MRI brain yesterday showed multiple small infracts, no hemorrhage. 05/25 Patient remains intubated and sedated. T: 100.5 last night. Renal function is worsening with Cr: 3.6 from 3.4 and UOP: 2650ml in 24 hrs. 05/26 No events overnight. Sedated and intubated. Afebrile. Cr: 3.62 , UOP: 1950ml in 24 hrs 05/27 Patient was extubated yesterday placed on BIPAP overnight. Cr: 3.42 today , UOP: 1800 ml in 24 hrs 05/28 Extubated yesterday and per report was compliant with Bipap overnight Remains on esmolol drip 200 mcg/kg/min and SBP in 140s. ZULY, probable ATN non- oliguric however I>>0 with significant intake from MIVF as well as 180 mL/hr from esmolol drip. IVF d/c per nephrology and transitioning off esmolol to minimize fluid. Hugo now per my discussion with Dr. Thornton. He is tachypneic, obtained ABG with hypercapnea on simple mask. Placing On Bipap. at bedside requesting eventual transfer to [place], though she realized he is not stable for that yet. 05/29: Remains on BiPAP since 299 with increasing respiratory rates. Will attempt a more aggressive diuresis. We started on esmolol drip due to persistent tachycardia and unable to reach target blood pressure and heart rate requirements. At high risk for reintubation. 05/30: Remained hypotensive overnight. This a.m. desaturated, tachypneic requiring high percent on BiPAP hence intubated by it instructor. Will require bronchoscopy this afternoon. Continue with aggressive diuresis. Broad antibiotic coverage. Start tube feeding. The systolic blood pressure better controlled while intubated on propofol and fentanyl drips. 05/31: T-max 102.8. Currently 99.6. FiO2 down to 80%. The same noted elevated transaminases AST of 2674. ALT of 1590. Creatinine is increased to 3.07 to 4.36. +2 L past 24 hours. One bowel movement. Noted prior gallbladder wall thickening on previous ultrasound. We will repeat today Subjective 06/01: T-max 102.5. Currently 98.9. Desaturate overnight resolved currently FiO2 of 80%. 4500 cc urine output. Creatinine continues to rise currently 4.9. CPK currently 6165. We will discontinue propofol with hepatomegaly, rhabdomyolysis possibly indicative propofol infusion syndrome. 06/02 Patient remains intubated and sedated. On Fentanyl, Versed and Nimbex. T: 100.0 at midnight. On PC/AC with PEEP:15, FIO2 50% Renal function continue to decline with Cr: 5.40 from 4.91 and UOP: 2895 ml in 24 hrs 06/03 Patient remains intubated and sedated with Versed, Fentanyl drips. Remains on Nimbex and Flolan. Cr: 5.6 from 5.4 with UOP: 3790 ml in 24 hrs. 06/04:Afebrile. Overnight the patient had an episode of hypotension during the and all sedation was briefly discontinued, then resumed for ventilator synchrony. Clonidine dosage decreased. Patient continues on pressure control mode, and Flolan for adequate oxygenation. Creatinine noted to be 5.7 weight urine output 3220cc/24 hrs. 06/05: Afebrile. This x-ray revealed improving area aeration of the right hemithorax. PEEP decreased this a.m. to 12, patient continues on FiO2 55% and Flolan, planned weaning. Electrolytes currently being replaced. Elevated liver enzymes continue to down trend. 06/06: Respiratory requirements decreasing, patient now on Flolan 10 ng/kg/min with FiO2 at 60%, maintaining O2 saturation 92%. Creatinine continues to down trend. Leukocytosis improving. 06/07: Flolan discontinued, FIO2 65%. Propofol added to maintain ventilator synchrony. Patient currently on 10 mg of Versed and 250 mics of fentanyl. Wound care was consulted for skin breakdown on buttocks secondary to multiple bowel movements, patient continues on Avani bed. 06/08: No acute events overnight. Flolan discontinued greater than 18 hours patient's O2 saturation 97% on FiO2 of 65. FiO2 requirements decreased the patient continues on a PEEP of 12. Free water flushes added to medication regimen secondary to hypernatremia, sodium level 156 today. 06/09 Patient remains sedated and intubated. Afebrile. 06/10 Patient is sedated with Versed, Diprivan and Fentanyl drips, intubated. Afebrile. renal function is improving with Cr: 3.52 from 3.94 06/11 No events overnight. Sedated with Diprivan and Fentanyl drips. Off Versed. renal function continue to improve with Cr:3.16 from 3.52. 06/12 Patient remains intubated placed on CPAP with PS 12, PEEP:5 and FIO2 40%, Cr down 2.74 from 3.16. Afebrile. Objective Vital Signs Date Time Temp Pulse Resp B/P (MAP) Pulse Ox O2 Delivery O2 Flow Rate FiO2 06/12/17 09:49 94 40 06/12/17 06:00 93 06/12/17 04:00 100.9 16 180/83 (115) 06/09/17 19:00 Mechanical Ventilator 06/09/17 07:00 8.00 Intake and Output 06/12/17 06/12/1706/13/18 08:00 16:00 00:00 Intake Total 2002 ml Output Total 1975 ml Balance 27 ml Result Diagram: 06/12/17 0430 06/12/17 0430 Other Results Laboratory Tests Test 06/12/17 04:30 White Blood Count 12.6 TH/MM3 Red Blood Count 3.28 MIL/MM3 Hemoglobin 8.7 GM/DL Hematocrit 27.0 % Mean Corpuscular Volume 82.3 FL Mean Corpuscular Hemoglobin 26.6 PG Mean Corpuscular Hemoglobin Concent 32.2 % Red Cell Distribution Width 17.1 % Platelet Count 239 TH/MM3 Mean Platelet Volume 9.6 FL Neutrophils (%) (Auto) 85.6 % Lymphocytes (%) (Auto) 8.5 % Monocytes (%) (Auto) 5.6 % Eosinophils (%) (Auto) 0.0 % Basophils (%) (Auto) 0.3 % Neutrophils # (Auto) 10.8 TH/MM3 Lymphocytes # (Auto) 1.1 TH/MM3 Monocytes # (Auto) 0.7 TH/MM3 Eosinophils # (Auto) 0.0 TH/MM3 Basophils # (Auto) 0.0 TH/MM3 CBC Comment DIFF FINAL Differential Comment Blood Urea Nitrogen 115 MG/DL Creatinine 2.74 MG/DL Random Glucose 224 MG/DL Total Protein 6.3 GM/DL Albumin 2.3 GM/DL Calcium Level 8.0 MG/DL Phosphorus Level 3.6 MG/DL Magnesium Level 2.5 MG/DL Alkaline Phosphatase 64 U/L Aspartate Amino Transf (AST/SGOT) 24 U/L Alanine Aminotransferase (ALT/SGPT) 121 U/L Total Bilirubin 0.5 MG/DL Sodium Level 155 MEQ/L Potassium Level 3.6 MEQ/L Chloride Level 117 MEQ/L Carbon Dioxide Level 27.5 MEQ/L Anion Gap 11 MEQ/L Estimat Glomerular Filtration Rate 32 ML/MIN Imaging Last Impressions Chest X-Ray 06/10/17 0000 Signed Impressions: Service Date/Time: Saturday, June 10, 2017 09:18 - CONCLUSION: Some improvement in the bibasilar consolidations. Rudy Cervantes Jr., MD Abdomen X-Ray 06/02/17 0000 Signed Impressions: Service Date/Time: May 10:18 - CONCLUSION: NG tip in stomach. Left basilar airspace disease. Elevated right hemidiaphragm. Bowel gas pattern demonstrates mild ileus Tc Varghese MD Liver Ultrasound 05/31/17 1434 Signed Impressions: Service Date/Time: Wednesday, May 31, 2017 14:40 - CONCLUSION: 1. Interval apparent hepatomegaly with diffusely increased hepatic echogenicity. Given the acuity of findings, findings may reflect acute hepatitis or congestive hepatopathy. 2. Persistently contracted gallbladder which accentuates the gallbladder wall with persistent gallbladder wall thickening and trace pericholecystic fluid. These findings are commonly seen in the setting of liver disease although differential considerations include acalculous cholecystitis. HIDA scan may be performed for better evaluation as clinically appropriate. 3. Andrew Kraft MD Lung Scan-V Nuclear Medicine 05/23/17 0000 Signed Impressions: Service Date/Time: Tuesday, May 23, 2017 10:22 - CONCLUSION: Low probability of pulmonary embolism. Buddy Harrison MD FACR Lower Extremity Ultrasound 05/23/17 0000 Signed Impressions: Service Date/Time: Tuesday, May 23, 2017 08:02 - CONCLUSION: Negative for deep venous thrombosis. Buddy Harrison MD FACR Head CT 05/23/17 0000 Signed Impressions: Service Date/Time: Tuesday, May 23, 2017 03:56 - CONCLUSION: 1. Examination quality is degraded by motion artifact. 2. No definite acute finding is identified. There is a 3 mm punctate area of high density in the left frontal periventricular white matter. This could represent small focus of acute blood products. Suggest attention to this on followup imaging. Wiliam Buck MD Brain MRI 05/23/17 0000 Signed Impressions: Service Date/Time: Tuesday, May 23, 2017 15:59 - CONCLUSION: 1. 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 2. No hemorrhage observe. 3. Pansinus disease. Rudy Cervantes Jr., MD Aorta CTA 05/23/17 0000 Signed Impressions: Service Date/Time: Tuesday, May 23, 2017 03:58 - CONCLUSION: 1. 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 The dissection extends to the abdominal aorta and terminates in the common iliac arteries bilaterally. The abdominal vessels arise from both the true and false lumens and demonstrate good opacification. Suggest correlating with the patient's prior imaging study which documents the dissection. 2. 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 3. There is stranding of the periaortic fat adjacent to the arch aneurysm. 4. There are small bilateral pleural effusions, left larger than right, with bilateral volume loss and/or airspace consolidation bilaterally. Wiliam Buck MD Abdomen Ultrasound 05/23/17 0000 Signed Impressions: Service Date/Time: Tuesday, May 23, 2017 17:22 - CONCLUSION: 1. Gall bladder wall thickening and possible pericholecystic fluid without evidence of gallstones. May consider perform hepatic biliary tract scan to evaluate for acalculous cholecystitis. 2. No focal abnormality seen within the liver. Rudy Pollock MD Objective Remarks GENERAL: This is a 36-year-old well-developed well-nourished AA male resting in bed orotracheally intubated, and sedated SKIN: Warm and dry, adequately perfused. HEAD: Normocephalic. EYES: Pupils 3 mm and reactive. No scleral icterus. No injection or drainage. NECK: Supple, trachea midline. No JVD or lymphadenopathy. Left IJ CVL is clean dry and intact CARDIOVASCULAR: Distant. RRR. S1, S2 no S4. Cannot appreciate murmurs, clicks , gallops or rubs RESPIRATORY: Coarse rhonchorous crackles noted throughout all lung [place] anterior-posterior bilaterally. No wheezing GASTROINTESTINAL: Abdomen soft, non-tender, nondistended. Hypoactive bowel sounds are appreciated MUSCULOSKELETAL: No cyanosis. Edema 2+ bilateral upper and lower extremities NEURO: Currently sedated on Versed, propofol and fentanyl drips. Positive gag and corneal reflex. Positive cough. 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 On Fentanyl, Propofol infusion to maintain ventilator synchrony. Goal of RASS -2 Daily sedation vacation Precedex drip to facilitate with weaning trials. Acetaminophen 650 mg by tube every 6 hours as needed fever discontinued due to elevated transaminases Evaluated by neurology/Dr. Espinosa MRI brain 05/23 revealed bilateral frontal embolic CVA CT brain: There is a 3 mm punctate area of high density in the left frontal periventricular white matter. This could represent small focus of acute blood products. EEG : Mild diffuse encephalopathy, no seizure activity Continue aspirin 162 mg p.o. daily. Okayed with neurology. CV: Hypertensive emergency Acute type B aortic dissection Elevated troponin PEA cardiac arrest 05/23/17, secondary to obstructive sleep apnea/obesity hypoventilation syndrome with Bipap nonadherence. CTA stable. VQ scan negative . Hyperlipidemia Monitor HR and BP keep MAP>65mmHg Currently on carvedilol 25 mg twice daily Diltiazem 90 mg every 6 hours Increase 0.3 mg every 8 hours Repeat echo 05/23: EF 60-65%, no RWMA Evaluated by cardiology, Dr. Bhakta on 05/24 due to troponin elevation. He attributed elevated troponin to PEA arrest, hypoxia, renal insufficiency. No further ischemic workup planned at this time. 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 The dissection extends to the abdominal aorta and terminates in the common iliac arteries bilaterally. The abdominal vessels arise from both the true and false lumens and demonstrate good opacification. Vascular surgery is following- Dr. Thomas Thomas: Obstructive sleep apnea Obesity hypoventilation syndrome Acute hypercapnic respiratory failure intubated 05/30 Ventilator dependent respiratory failure PRVC RR 16, TV 500, IT:1.0, PEEP:5, FIO2: 40%, Ventilator bundle Bronchodilators, Duoneb Q4, Mucomyst nebs Off Flolan, decrease solumederol 40mg IV daily CXR 06/10: Some improvement in the bibasilar consolidations V/Q scan: low prob PE s/p bronch today showed mucous plugs/ thick secretions b/l, normal mucosa, no evidence of EBL, BAL performed RUL. Status post bronchoscopy 05/30 revealed no mucus plugging. Normal bronchial mucosa without lesions. No signs of bleeding. LEN negative Renal/: Nonoliguric acute kidney injury Rhabdo Electrolyte derangement Likely secondary to ischemic ATN following cardiac arrest. Off Diuretics due to worsening hypernatremia Renal function is improving with Cr: 2.74 from 3.16 Renal is following- Dr. Flannery abdomen: No hydronephrosis. On free water 300ml Q4, D5W@75ml/hr monitor sodium level. GI: Elevated transaminases Hypoalbuminemia Hyperammonia Continue Nepro @ 55ml/hr-no residuals Famotidine 10 mg BID for GI prophylaxis Docusate/senna 1 tablet twice daily, polyethylene glycol 17 g twice daily and lactulose 30 cc twice daily for bowel regimen. Monitor LFT's (trending down),Hep profile is negative Abdominal ultrasound 05/31 -market hepatic congestion. Contracted gallbladder with pericholecystic fluid. Possible acalculous cholecystitis recommend HIDA scan if clinically able. US abdomen: Gall bladder wall thickening and possible pericholecystic fluid without evidence of gallstones. Recommend HIDA scan if clinically indicated Lactulose 30 cc 4 times daily. GI following Heme: Persistent Leukocytosis Microcytic anemia Monitor CBC VQ scan negative 05/23 BLE u/s negative for DVT 05/23 ID: MSSA pneumonia Abx per ID ( On Cefepime) Monitor for signs of infections ( Fever, WBC) ID is following- Pertinent: C-diff PCR negative on 06/04 and 06/09 06/08 -sputum -normal resp lizzie 05/31/13 -blood cultures 2 -pending 05/30 -bronchoscopy -no growth 05/30 -sputum -rare WBC/budding yeast 05/30 -blood cultures 2 -pending 05/25 -blood cultures 2 -no growth to date 05/25 -urine culture -no growth to date 05/23 -sputum -MSSA 05/23 -blood cultures 2 -no growth to date Endo: Currently on sliding scale insulin NovUlin R medium regimen every 6 hours sliding scale. TSH 2.3 PROPH: SCDs /Heparin subcut q 12 hours for DVT prophylaxis. ACCESS Left IJ CVL placed 05/31 Level 3 Abner Elizabeth MD Jun 12, 2017 10:00
[2017-06-12] MEDS: fentaNYL DRIP 250 ML IV PRN ×2 (11:13→23:52)
--- NOTE | 2017-06-12 12:10 | HHI.NPPN ---
Subjective History of Present Illness 36 year old with Aortic dissection ARF Additional Remarks Patient remains intubated Objective Data Data 06/12/17 06/13/17 19:00 07:00 Output Total 0 ml Balance 0 ml Tube Feeding Residual Discard 0 ml Vital Signs Date Time Temp Pulse Resp B/P (MAP) Pulse Ox O2 Delivery O2 Flow Rate FiO2 06/12/17 11:38 96 40 06/12/17 10:00 89 06/12/17 09:49 94 40 06/12/17 08:00 40 06/12/17 08:00 94 06/12/17 08:00 98.5 93 16 154/71 (98) 98 06/12/17 07:46 94 40 06/12/17 07:46 40 06/12/17 06:00 93 06/12/17 05:07 94 40 06/12/17 04:00 100.9 92 16 180/83 (115) 93 06/12/17 04:00 40 06/12/17 04:00 92 06/12/17 02:36 94 40 06/12/17 02:00 88 06/12/17 00:08 94 40 06/12/17 00:00 99.2 86 18 174/79 (110) 93 06/12/17 00:00 86 06/12/17 00:00 40 06/11/17 22:00 90 06/11/17 20:00 40 06/11/17 20:00 99.4 90 16 137/63 (87) 94 06/11/17 20:00 90 06/11/17 19:48 94 40 06/11/17 16:37 95 40 06/11/17 16:00 40 06/11/17 16:00 98.2 92 21 142/65 (90) 93 06/11/17 13:01 98 40 -: 06/12/17 0430 06/12/17 0430 Physical Exam General Appearance: Well Developed Eyes Eye Exam: Pupils Equal Neck Neck Exam: Neck Supple Pulmonary Resp Exam: Clear Bilaterally Cardiology CV Exam: Regular, Normal Sinus Rhythm Gastrointestinal/Abdomen GI Exam: Soft, Non-Tender Genitourinary Exam: Clear Urine Integumentary Skin Exam: Intact Extremeties Extremities Exam: Moderate Edema, Pitting Edema, Dependent Edema Assessment/Plan Problem List: (1) Acute renal failure ICD Codes: N17.9 - Acute kidney failure, unspecified Plan: He has large dissection of aorta continue to monitor he is passing urine , creatinine he did receive IV contrast repeat CTA Dissection up to Common Iliac arteries seen with true and false lumen perfused Cr 5.6-> 5.7 -> 5.7 -> 5.3 -> 5 -> 4.4-. 3.9-> 3.5 ->3.16-> 2.74 non oliguric, off all diuretics Getting d5w 75cc/hr water 300 ml q 4 Sodium 155 BUN decreased slightly K replaced Patient has good urine out. (2) Dissection of aorta, thoracoabdominal ICD Codes: I71.03 - Dissection of thoracoabdominal aorta Status: Acute Plan: vascular is following Renal arteries remains perfused Roz Flannery MD Jun 12, 2017 12:10
[2017-06-12] MEDS: DEXMEDETOMIDINE INJ 1,000 MCG in SODIUM CHLOR 0.9% 250 ML INJ 240 ML IV PRN ×2 (12:17→18:59)
[2017-06-12] MEDS: DEXTROSE 5% IN WATE 1000ML INJ 1,000 ML IV SCH ×2 (12:35→23:01)
[2017-06-12] MEDS ORDERED: DILTIAZEM HCL 50 MG/10 ML VIAL IV ONE (13:15)
[2017-06-12] MEDS: NS IV PRN ×10 (15:47→23:52)
[2017-06-12] MEDS: LABETALOL IV PRN ×10 (15:47→23:52)
[2017-06-12] MEDS: CEFEPIME INJ 2,000 MG in SODIUM CHLORIDE 0.9% INJ 100 ML IV SCH (17:05)
[2017-06-12] MEDS ORDERED: FUROSEMIDE 40 MG/5 ML UNIT DOSE CUP NG ONE (17:45)
[2017-06-12] MEDS ORDERED: DILTIAZEM HCL 25 MG/5 ML VIAL IV ONE (17:45)
[2017-06-12] MEDS ORDERED: MIDAZOLAM HCL 2 MG/2 ML VIAL IV PUSH ONE (18:00)
[2017-06-12] MEDS: RESP: ALBUTEROL 2.5 MG/3 ML NEB (PRN) NEB (19:36)
[2017-06-12] MEDS: cloNIDine HCL 0.3 MG TAB PO SCH (23:00)
[2017-06-13] VITALS (49 sets, daily range): BP systolic 119–145; BP diastolic 56–69; PULSE 70–87; RESP 6–21; TEMP 98.3–99.5; O2SAT 92–100
[2017-06-13] MEDS: CHLORHEXIDINE GLUCONATE 2 % 1 PACK (2 CLOTHS) TOP SCH (04:00)
[2017-06-13] MEDS: FREE WATER G-TUBE SCH ×5 (04:00→22:00)
[2017-06-13] MEDS: NS IV PRN ×30 (04:05→22:03)
[2017-06-13] MEDS: LABETALOL IV PRN ×30 (04:05→22:03)
[2017-06-13] MEDS: INSULIN NovoLIN REGULAR SUPPLEMENTAL SCALE SQ SCH ×4 (06:00→17:32)
[2017-06-13] MEDS: DILTIAZEM HCL 90 MG TAB PO SCH ×4 (06:35→17:32)
[2017-06-13] MEDS: cloNIDine HCL 0.3 MG TAB PO SCH ×3 (06:35→22:03)
[2017-06-13] MEDS: ARTIFICIAL TEARS OPTH SOLN 15 ML BTL EACH EYE SCH ×3 (06:35→22:03)
[2017-06-13] MEDS: PROPOFOL 1000 MG/100 ML INJ 100 ML IV PRN ×5 (07:03→22:04)
[2017-06-13 07:21] LABS: BICARBONATE 24.2 MEQ/L (21.0-32.0); CALCIUM 7.4 MG/DL (8.5-10.1); CREATININE 2.85 MG/DL (0.60-1.30)
[2017-06-13 07:25] LABS: AUTOMATED NEUTROPHIL # 13.6 TH/MM3 (1.8-7.7); BASOPHIL % 0.2 % (0.0-2.0); HEMATOCRIT 23.6 % (39.0-51.0); HEMOGLOBIN 7.5 GM/DL (13.0-17.0); LYMPH % 6.9 % (9.0-44.0); LYMPHOCYTE # 1.1 TH/MM3 (1.0-4.8); MEAN CELL VOLUME 82.9 FL (80.0-100.0); MEAN CORPUSCULAR HEMOGLOBIN 26.4 PG (27.0-34.0); MEAN CORPUSCULAR HGB CONC 31.9 % (32.0-36.0); MEAN PLATELET VOLUME 10.1 FL (7.0-11.0); MONO % 7.5 % (0.0-8.0); MONOCYTE # 1.2 TH/MM3 (0-0.9); NEUT % 85.4 % (16.0-70.0); PLATELET COUNT 199 TH/MM3 (150-450); RED BLOOD COUNT 2.85 MIL/MM3 (4.50-5.90); RED CELL DISTRIBUTION WIDTH 17.2 % (11.6-17.2); WHITE BLOOD COUNT 15.9 TH/MM3 (4.0-11.0)
[2017-06-13 07:42] LABS: CALCIUM-PROTEIN CORRECTED 8.2 MG/DL (8.5-10.1); TOTAL PROTEIN 5.7 GM/DL (6.4-8.2)
[2017-06-13] MEDS: CHLORHEXIDINE 0.12% (ORAL KIT) 15 ML CUP MT SCH ×2 (08:56→20:00)
[2017-06-13] MEDS: SODIUM CHLORIDE 0.9% FLUSH 10 ML FLUSH IV FLUSH SCH (08:56)
[2017-06-13] MEDS: CARVEDILOL 12.5 MG TAB PO SCH ×2 (08:57→20:23)
[2017-06-13] MEDS: HEPARIN SODIUM - SQ 10,000 UNITS/ML VIAL SQ SCH ×3 (08:57→20:23)
[2017-06-13] MEDS: FAMOTIDINE 20 MG/2 ML VIAL IV PUSH SCH (08:57)
[2017-06-13] MEDS: methylPREDNISolone SOD SUCC 40 MG/1 ML VIAL IV PUSH SCH (08:57)
[2017-06-13] MEDS: ASPIRIN 81 MG CHEW TAB CHEW SCH (08:57)
--- NOTE | 2017-06-13 09:33 | HHI.CCPN ---
Subjective Remarks/Hospital Course 05/19: Is a 36-year-old male with a history of hypertension who is on vacation from the [place] area who did not take his antihypertensives today because he is on vacation, and was having sexual intercourse when he had sudden onset of severe substernal radiating to the back chest pain earlier today. 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 He was emergently transferred to [facility] for further management. I evaluated the patient on arrival to the ICU by EVAC. Patient denies abdominal pain. Still endorses chest pain although this is improving. Patient denies any other symptoms. CT chest abdomen pelvis was reviewed and reviewed with myself and Dr. Guzman and does demonstrate a type B dissection. 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 Initial laboratory evidence demonstrates a lactate of 1.3, creatinine 1.2, normal LFTs. 05/20: On home C Pap. Urine output 30 cc/h currently. Remains on esmolol and labetalol drips. Remains drowsy though arousable. +4.4 L 05/21: Resting comfortably on nasal cannula. Awake and alert currently. Denies any shortness of breath or chest pain currently. 05/22: AAO x3, resting comfortably. 05/23 Patient went into PEA arrest early this morning now sedated with Diprivan and intubated. Off Esmolol drip. 05/24 Patient is sedated with Diprivan and intubated. On Labetolol drip. MRI brain yesterday showed multiple small infracts, no hemorrhage. 05/25 Patient remains intubated and sedated. T: 100.5 last night. Renal function is worsening with Cr: 3.6 from 3.4 and UOP: 2650ml in 24 hrs. 05/26 No events overnight. Sedated and intubated. Afebrile. Cr: 3.62 , UOP: 1950ml in 24 hrs 05/27 Patient was extubated yesterday placed on BIPAP overnight. Cr: 3.42 today , UOP: 1800 ml in 24 hrs 05/28 Extubated yesterday and per report was compliant with Bipap overnight Remains on esmolol drip 200 mcg/kg/min and SBP in 140s. ZULY, probable ATN non- oliguric however I>>0 with significant intake from MIVF as well as 180 mL/hr from esmolol drip. IVF d/c per nephrology and transitioning off esmolol to minimize fluid. Hugo now per my discussion with Dr. Thornton. He is tachypneic, obtained ABG with hypercapnea on simple mask. Placing On Bipap. at bedside requesting eventual transfer to [place], though she realized he is not stable for that yet. 05/29: Remains on BiPAP since 299 with increasing respiratory rates. Will attempt a more aggressive diuresis. We started on esmolol drip due to persistent tachycardia and unable to reach target blood pressure and heart rate requirements. At high risk for reintubation. 05/30: Remained hypotensive overnight. This a.m. 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 Will require bronchoscopy this afternoon. Continue with aggressive diuresis. Broad antibiotic coverage. Start tube feeding. The systolic blood pressure better controlled while intubated on propofol and fentanyl drips. 05/31: T-max 102.8. Currently 99.6. FiO2 down to 80%. The same noted elevated transaminases AST of 2674. ALT of 1590. Creatinine is increased to 3.07 to 4.36. +2 L past 24 hours. One bowel movement. Noted prior gallbladder wall thickening on previous ultrasound. We will repeat today Subjective 06/01: T-max 102.5. Currently 98.9. Desaturate overnight resolved currently FiO2 of 80%. 4500 cc urine output. Creatinine continues to rise currently 4.9. CPK currently 6165. We will discontinue propofol with hepatomegaly, rhabdomyolysis possibly indicative propofol infusion syndrome. 06/02 Patient remains intubated and sedated. On Fentanyl, Versed and Nimbex. T: 100.0 at midnight. On PC/AC with PEEP:15, FIO2 50% Renal function continue to decline with Cr: 5.40 from 4.91 and UOP: 2895 ml in 24 hrs 06/03 Patient remains intubated and sedated with Versed, Fentanyl drips. Remains on Nimbex and Flolan. Cr: 5.6 from 5.4 with UOP: 3790 ml in 24 hrs. 06/04:Afebrile. Overnight the patient had an episode of hypotension during the and all sedation was briefly discontinued, then resumed for ventilator synchrony. Clonidine dosage decreased. Patient continues on pressure control mode, and Flolan for adequate oxygenation. Creatinine noted to be 5.7 weight urine output 3220cc/24 hrs. 06/05: Afebrile. This x-ray revealed improving area aeration of the right hemithorax. PEEP decreased this a.m. to 12, patient continues on FiO2 55% and Flolan, planned weaning. Electrolytes currently being replaced. Elevated liver enzymes continue to down trend. 06/06: Respiratory requirements decreasing, patient now on Flolan 10 ng/kg/min with FiO2 at 60%, maintaining O2 saturation 92%. Creatinine continues to down trend. Leukocytosis improving. 06/07: Flolan discontinued, FIO2 65%. Propofol added to maintain ventilator synchrony. Patient currently on 10 mg of Versed and 250 mics of fentanyl. Wound care was consulted for skin breakdown on buttocks secondary to multiple bowel movements, patient continues on Avani bed. 06/08: No acute events overnight. Flolan discontinued greater than 18 hours patient's O2 saturation 97% on FiO2 of 65. FiO2 requirements decreased the patient continues on a PEEP of 12. Free water flushes added to medication regimen secondary to hypernatremia, sodium level 156 today. 06/09 Patient remains sedated and intubated. Afebrile. 06/10 Patient is sedated with Versed, Diprivan and Fentanyl drips, intubated. Afebrile. renal function is improving with Cr: 3.52 from 3.94 06/11 No events overnight. Sedated with Diprivan and Fentanyl drips. Off Versed. renal function continue to improve with Cr:3.16 from 3.52. 06/12 Patient remains intubated placed on CPAP with PS 12, PEEP:5 and FIO2 40%, Cr down 2.74 from 3.16. Afebrile. 06/13 No events overnight. Sedated with Diprivan, Fentanyl and on Precedex. Placed on labetalol yesterday 9mg. Afebrile. Objective Vital Signs Date Time Temp Pulse Resp B/P (MAP) Pulse Ox O2 Delivery O2 Flow Rate FiO2 06/13/17 08:25 96 35 06/13/17 06:00 84 06/13/17 04:00 98.9 10 139/63 (88) 3/22/18 19:00 Mechanical Ventilator 06/09/17 07:00 8.00 Intake and Output 06/13/17 06/13/17 06/14/17 08:00 16:00 00:00 Intake Total 1260 ml Output Total 1700 ml Balance -440 ml Result Diagram: 06/13/17 0600 06/13/17 0600 Other Results Laboratory Tests Test 06/12/17 21:08 06/13/17 06:00 Potassium Level 3.8 MEQ/L 3.9 MEQ/L White Blood Count 15.9 TH/MM3 Red Blood Count 2.85 MIL/MM3 Hemoglobin 7.5 GM/DL Hematocrit 23.6 % Mean Corpuscular Volume 82.9 FL Mean Corpuscular Hemoglobin 26.4 PG Mean Corpuscular Hemoglobin Concent 31.9 % Red Cell Distribution Width 17.2 % Platelet Count 199 TH/MM3 Mean Platelet Volume 10.1 FL Neutrophils (%) (Auto) 85.4 % Lymphocytes (%) (Auto) 6.9 % Monocytes (%) (Auto) 7.5 % Eosinophils (%) (Auto) 0.0 % Basophils (%) (Auto) 0.2 % Neutrophils # (Auto) 13.6 TH/MM3 Lymphocytes # (Auto) 1.1 TH/MM3 Monocytes # (Auto) 1.2 TH/MM3 Eosinophils # (Auto) 0.0 TH/MM3 Basophils # (Auto) 0.0 TH/MM3 CBC Comment DIFF FINAL Differential Comment Blood Urea Nitrogen 106 MG/DL Creatinine 2.85 MG/DL Random Glucose 249 MG/DL Total Protein 5.7 GM/DL Calcium Level 7.4 MG/DL Sodium Level 150 MEQ/L Chloride Level 115 MEQ/L Carbon Dioxide Level 24.2 MEQ/L Anion Gap 11 MEQ/L Estimat Glomerular Filtration Rate 31 ML/MIN Protein Corrected Calcium 8.2 MG/DL Imaging Last Impressions Chest X-Ray 06/10/17 0000 Signed Impressions: Service Date/Time: Saturday, June 10, 2017 09:18 - CONCLUSION: Some improvement in the bibasilar consolidations. Rudy Cervantes Jr., MD Abdomen X-Ray 06/02/17 0000 Signed Impressions: Service Date/Time: May 10:18 - CONCLUSION: NG tip in stomach. Left basilar airspace disease. Elevated right hemidiaphragm. Bowel gas pattern demonstrates mild ileus Tc Varghese MD Liver Ultrasound 05/31/17 1434 Signed Impressions: Service Date/Time: Wednesday, May 31, 2017 14:40 - CONCLUSION: 1. Interval apparent hepatomegaly with diffusely increased hepatic echogenicity. Given the acuity of findings, findings may reflect acute hepatitis or congestive hepatopathy. 2. Persistently contracted gallbladder which accentuates the gallbladder wall with persistent gallbladder wall thickening and trace pericholecystic fluid. These findings are commonly seen in the setting of liver disease although differential considerations include acalculous cholecystitis. HIDA scan may be performed for better evaluation as clinically appropriate. 3. Andrew Kraft MD Lung Scan-V Nuclear Medicine 05/23/17 0000 Signed Impressions: Service Date/Time: Tuesday, May 23, 2017 10:22 - CONCLUSION: Low probability of pulmonary embolism. Buddy Harrison MD FACR Lower Extremity Ultrasound 05/23/17 0000 Signed Impressions: Service Date/Time: Tuesday, May 23, 2017 08:02 - CONCLUSION: Negative for deep venous thrombosis. Buddy Harrison MD FACR Head CT 05/23/17 0000 Signed Impressions: Service Date/Time: Tuesday, May 23, 2017 03:56 - CONCLUSION: 1. Examination quality is degraded by motion artifact. 2. No definite acute finding is identified. There is a 3 mm punctate area of high density in the left frontal periventricular white matter. This could represent small focus of acute blood products. Suggest attention to this on followup imaging. Wiliam Buck MD Brain MRI 05/23/17 0000 Signed Impressions: Service Date/Time: Tuesday, May 23, 2017 15:59 - CONCLUSION: 1. 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 2. No hemorrhage observe. 3. Pansinus disease. Rudy Cervantes Jr., MD Aorta CTA 05/23/17 0000 Signed Impressions: Service Date/Time: Tuesday, May 23, 2017 03:58 - CONCLUSION: 1. 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 The dissection extends to the abdominal aorta and terminates in the common iliac arteries bilaterally. The abdominal vessels arise from both the true and false lumens and demonstrate good opacification. Suggest correlating with the patient's prior imaging study which documents the dissection. 2. 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 3. There is stranding of the periaortic fat adjacent to the arch aneurysm. 4. There are small bilateral pleural effusions, left larger than right, with bilateral volume loss and/or airspace consolidation bilaterally. Wiliam Buck MD Abdomen Ultrasound 05/23/17 0000 Signed Impressions: Service Date/Time: Tuesday, May 23, 2017 17:22 - CONCLUSION: 1. Gall bladder wall thickening and possible pericholecystic fluid without evidence of gallstones. May consider perform hepatic biliary tract scan to evaluate for acalculous cholecystitis. 2. No focal abnormality seen within the liver. Rudy Pollock MD Objective Remarks GENERAL: This is a 36-year-old well-developed well-nourished AA male resting in bed orotracheally intubated, and sedated SKIN: Warm and dry, adequately perfused. HEAD: Normocephalic. EYES: Pupils 3 mm and reactive. No scleral icterus. No injection or drainage. NECK: Supple, trachea midline. No JVD or lymphadenopathy. Left IJ CVL is clean dry and intact CARDIOVASCULAR: Distant. RRR. S1, S2 no S4. Cannot appreciate murmurs, clicks , gallops or rubs RESPIRATORY: Coarse rhonchorous crackles noted throughout all lung [place] anterior-posterior bilaterally. No wheezing GASTROINTESTINAL: Abdomen soft, non-tender, nondistended. Hypoactive bowel sounds are appreciated MUSCULOSKELETAL: No cyanosis. Edema 2+ bilateral upper and lower extremities NEURO: Currently sedated on Versed, propofol and fentanyl drips. Positive gag and corneal reflex. Positive cough. 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 On Fentanyl, Propofol infusion to maintain ventilator synchrony. Goal of RASS -2 Daily sedation vacation Precedex drip to facilitate with weaning trials. Acetaminophen 650 mg by tube every 6 hours as needed fever discontinued due to elevated transaminases Evaluated by neurology/Dr. Espinosa MRI brain 05/23 revealed bilateral frontal embolic CVA CT brain: There is a 3 mm punctate area of high density in the left frontal periventricular white matter. This could represent small focus of acute blood products. EEG : Mild diffuse encephalopathy, no seizure activity Continue aspirin 162 mg p.o. daily. Okayed with neurology. CV: Hypertensive emergency Acute type B aortic dissection Elevated troponin PEA cardiac arrest 05/23/17, secondary to obstructive sleep apnea/obesity hypoventilation syndrome with Bipap nonadherence. CTA stable. VQ scan negative . Hyperlipidemia Monitor HR and BP keep MAP>65mmHg Wean off Labetalol drip Currently on carvedilol 25 mg twice daily Diltiazem 90 mg every 6 hours Clonidine 0.3 mg every 8 hours Repeat echo 05/23: EF 60-65%, no RWMA Evaluated by cardiology, Dr. Bhakta on 05/24 due to troponin elevation. He attributed elevated troponin to PEA arrest, hypoxia, renal insufficiency. No further ischemic workup planned at this time. 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 The dissection extends to the abdominal aorta and terminates in the common iliac arteries bilaterally. The abdominal vessels arise from both the true and false lumens and demonstrate good opacification. Vascular surgery is following- Dr. Guzman Pulm: Obstructive sleep apnea Obesity hypoventilation syndrome Acute hypercapnic respiratory failure intubated 05/30 Ventilator dependent respiratory failure PRVC RR 16, TV 500, IT:1.0, PEEP:8, FIO2: 40%, Ventilator bundle Bronchodilators, DuoNeb Q4, Mucomyst nebs Solumederol 40mg IV daily CXR 06/10: Some improvement in the bibasilar consolidations Check CXR today V/Q scan: low prob PE s/p bronch today showed mucous plugs/ thick secretions b/l, normal mucosa, no evidence of EBL, BAL performed RUL. Status post bronchoscopy 05/30 revealed no mucus plugging. Normal bronchial mucosa without lesions. No signs of bleeding. LEN negative Renal/: Nonoliguric acute kidney injury Rhabdo Electrolyte derangement Likely secondary to ischemic ATN following cardiac arrest. Cr: 2.85 today, UOP: 4300ml in 24 hrs Renal is following- Dr. Alma Delia LOPEZ abdomen: No hydronephrosis. On free water 250ml Q12, monitor sodium level. d/c IVF and diurese with Lasix 40mg x1 GI: Elevated transaminases Hypoalbuminemia Hyperammonia Continue Nepro @ 55ml/hr-no residuals Famotidine 10 mg BID for GI prophylaxis Docusate/senna 1 tablet twice daily, polyethylene glycol 17 g twice daily and lactulose 30 cc twice daily for bowel regimen. Monitor LFT's (trending down),Hep profile is negative Abdominal ultrasound 05/31 -market hepatic congestion. Contracted gallbladder with pericholecystic fluid. Possible acalculous cholecystitis recommend HIDA scan if clinically able. US abdomen: Gall bladder wall thickening and possible pericholecystic fluid without evidence of gallstones. Recommend HIDA scan if clinically indicated Lactulose 30 cc 4 times daily. GI following Heme: Persistent Leukocytosis Microcytic anemia Monitor CBC VQ scan negative 05/23 BLE u/s negative for DVT 05/23 ID: MSSA pneumonia Abx per ID ( On Cefepime) Monitor for signs of infections ( Fever, WBC) ID is following- , check sputum cx, UA with cx if indicated. Pertinent: C-diff PCR negative on 06/04 and 06/09 06/08 -sputum -normal resp lizzie 05/31/13 -blood cultures 2 -pending 05/30 -bronchoscopy -no growth 05/30 -sputum -rare WBC/budding yeast 05/30 -blood cultures 2 -pending 05/25 -blood cultures 2 -no growth to date 05/25 -urine culture -no growth to date 05/23 -sputum -MSSA 05/23 -blood cultures 2 -no growth to date Endo: SSI ( medium scale) NovUlin R medium regimen every 6 hours sliding scale. Add Levemir 7u Q12 TSH 2.3 PROPH: SCDs /Heparin subcut q 12 hours for DVT prophylaxis. ACCESS Left IJ CVL placed 05/31 Level 3 Abner Elizabeth MD Jun 13, 2017 09:33
--- NOTE | 2017-06-13 10:22 | RADRPT ---
EXAM DATE/TIME: 06/13/2017 09:52 [place] COMPARISON: CHEST SINGLE AP, June 10, 2017, 9:18. INDICATIONS : Short of breath, respiratory failure MEDICAL HISTORY : Hypertension. Aortic dissection, VDRF SURGICAL HISTORY : None. ENCOUNTER: Subsequent ACUITY: 1 month PAIN SCORE: Non-responsive. LOCATION: Bilateral chest FINDINGS: 2 AP portable semierect views of the chest were obtained and again demonstrated endotracheal tube in place with the tip at the level of the julee. The nasogastric tube remains in place. The left international nurse al jugular central venous line is unchanged. Both views are more Midinspiratory crowding of the lung vasculature. There is abnormal opacity in the central portions of both lungs extending into the upper and lower lobes. There is no distinct effusion. The heart size appears at the upper limits of normal . There is mild motion artifact and multiple overlying electrocardiogram leads and oxygen tubing. CONCLUSION: 1. Midinspiratory exam. The endotracheal tube tip is at the level of the julee. 2. Apparent increase in hazy opacity in both lungs which may represent pulmonary edema or be artifact ual secondary to the Midinspiratory study. Marvin Rivas MD on June 13, 2017 at 10:18 Board Certified Radiologist. This report was verified electronically.
[2017-06-13] MEDS: DEXMEDETOMIDINE INJ 1,000 MCG in SODIUM CHLOR 0.9% 250 ML INJ 240 ML IV PRN ×2 (13:16→20:22)
[2017-06-13] MEDS: fentaNYL DRIP 250 ML IV PRN ×2 (13:16→22:07)
[2017-06-13] MEDS ORDERED: FUROSEMIDE 40 MG/4 ML VIAL IV PUSH ONE (14:45)
[2017-06-13] MEDS: INSULIN DETEMIR 100 UNITS/ML VIAL SQ SCH ×2 (15:28→20:23)
--- NOTE | 2017-06-13 15:56 | HHI.NPPN ---
Subjective History of Present Illness 36 year old with Aortic dissection ARF Additional Remarks Patient remains intubated Objective Data Data 06/13/17 06/14/17 19:00 07:00 Intake Total 531 ml Balance 531 ml IV Total 531 ml Vital Signs Date Time Temp Pulse Resp B/P (MAP) Pulse Ox O2 Delivery O2 Flow Rate FiO2 06/13/17 15:20 95 35 06/13/17 14:30 75 6 134/63 (86) 96 06/13/17 14:15 76 9 133/63 (86) 97 06/13/17 14:00 78 06/13/17 14:00 78 9 131/62 (85) 96 06/13/17 13:45 78 7 132/62 (85) 96 06/13/17 13:30 77 11 136/63 (87) 97 06/13/17 13:15 77 9 145/69 (94) 97 06/13/17 13:00 78 10 136/65 (88) 97 06/13/17 12:45 78 10 135/64 (87) 98 06/13/17 12:30 79 10 133/64 (87) 97 06/13/17 12:15 79 15 135/65 (88) 97 06/13/17 12:00 99.3 80 8 136/65 (88) 98 06/13/17 12:00 80 06/13/17 12:00 40 06/13/17 11:45 80 10 133/58 (83) 96 06/13/17 11:31 100 35 06/13/17 11:30 81 13 139/65 (89) 99 06/13/17 11:15 81 8 131/61 (84) 99 06/13/17 11:00 81 8 130/61 (84) 99 06/13/17 10:45 81 8 129/60 (83) 99 06/13/17 10:30 81 8 124/56 (78) 99 06/13/17 10:15 83 7 121/60 (80) 98 06/13/17 10:00 81 06/13/17 10:00 81 8 119/59 (79) 99 06/13/17 09:45 81 8 125/56 (79) 97 06/13/17 09:30 82 7 126/58 (80) 97 06/13/17 09:15 82 8 126/59 (81) 97 06/13/17 09:00 83 7 129/56 (80) 97 06/13/17 08:45 82 7 129/60 (83) 97 06/13/17 08:30 82 14 128/57 (80) 100 06/13/17 08:25 96 35 06/13/17 08:15 83 7 125/60 (81) 98 06/13/17 08:00 84 06/13/17 08:00 99.5 84 8 119/59 (79) 97 06/13/17 08:00 40 06/13/17 07:45 83 21 139/59 (85) 95 06/13/17 07:30 83 8 130/61 (84) 99 06/13/17 07:15 83 9 132/58 (82) 98 06/13/17 07:00 84 10 134/56 (82) 98 06/13/17 06:00 84 06/13/17 04:41 98 40 06/13/17 04:00 40 06/13/17 04:00 98.9 84 10 139/63 (88) 98 06/13/17 04:00 87 06/13/17 02:00 87 06/13/17 00:34 99 40 06/13/17 00:00 85 06/13/17 00:00 98.6 85 14 135/56 (82) 98 06/13/17 00:00 40 06/12/17 22:00 87 06/12/17 20:00 40 06/12/17 20:00 87 06/12/17 20:00 98.8 87 18 142/64 (90) 96 06/12/17 19:37 97 40 06/12/17 18:00 90 06/12/17 17:16 93 40 06/12/17 16:00 40 06/12/17 16:00 99.1 92 22 189/84 (119) 94 06/12/17 16:00 91 -: 06/13/17 0600 06/13/17 0600 Microbiology 06/13/17 Gram Stain, Received Pending 06/13/17 Sputum Culture, Received Pending Physical Exam General Appearance: Well Developed Eyes Eye Exam: Pupils Equal Neck Neck Exam: Neck Supple Pulmonary Resp Exam: Clear Bilaterally Cardiology CV Exam: Regular, Normal Sinus Rhythm Gastrointestinal/Abdomen GI Exam: Soft, Non-Tender Genitourinary Exam: Clear Urine Integumentary Skin Exam: Intact Extremeties Extremities Exam: Moderate Edema, Pitting Edema, Dependent Edema Assessment/Plan Problem List: (1) Acute renal failure ICD Codes: N17.9 - Acute kidney failure, unspecified Plan: He has large dissection of aorta continue to monitor he is passing urine , creatinine he did receive IV contrast repeat CTA Dissection up to Common Iliac arteries seen with true and false lumen perfused Cr 5.6-> 5.7 -> 5.7 -> 5.3 -> 5 -> 4.4-. 3.9-> 3.5 ->3.16-> 2.74 -> 2.8 non oliguric, off all diuretics off IVF water 250 ml q 8 Sodium 150 Lasix one dose given UOP 4.3 L BUN decreased slightly K normal remains intubated Patient has good urine out. (2) Dissection of aorta, thoracoabdominal ICD Codes: I71.03 - Dissection of thoracoabdominal aorta Status: Acute Plan: vascular is following Renal arteries remains perfused Roz Flannery MD Jun 13, 2017 15:56
[2017-06-13] MEDS: CEFEPIME INJ 2,000 MG in SODIUM CHLORIDE 0.9% INJ 100 ML IV SCH (16:03)
[2017-06-13 17:07] LABS: AMORPHOUS SEDIMENT, URINE RARE; BACTERIA, URINE RARE /hpf; BILIRUBIN, URINE NEG (NEG); BLOOD, URINE SMALL (NEG); GLUCOSE,URINE NEG (NEG); KETONE, URINE NEG (NEG); MUCUS URINE FEW /lpf (OCC); NITRITE,URINE NEG (NEG); PH, URINE 5.5 (5.0-8.5); URINE COLOR YELLOW (YELLW/STRAW); URINE LEUKOCYTE ESTERASE TRACE (NEG)
[2017-06-13] MEDS: hydrALAZINE HCL 50 MG TAB OG-TUBE SCH (20:22)
[2017-06-13] MEDS: FAMOTIDINE 20 MG TAB PO SCH (20:23)
[2017-06-13 23:25] LABS: HEMATOCRIT 22.1 % (39.0-51.0); HEMOGLOBIN 7.1 GM/DL (13.0-17.0)
[2017-06-14] VITALS (53 sets, daily range): BP systolic 123–144; BP diastolic 57–70; PULSE 62–69; RESP 0–24; TEMP 97.4–98.7; O2SAT 92–100
[2017-06-14] MEDS: INSULIN NovoLIN REGULAR SUPPLEMENTAL SCALE SQ SCH ×5 (00:06→23:03)
[2017-06-14] MEDS: DILTIAZEM HCL 90 MG TAB PO SCH ×5 (00:07→23:02)
[2017-06-14] MEDS: LABETALOL IV PRN ×24 (00:07→23:05)
[2017-06-14] MEDS: NS IV PRN ×24 (00:07→23:05)
[2017-06-14] MEDS: hydrALAZINE HCL 50 MG TAB OG-TUBE SCH ×4 (01:30→20:01)
[2017-06-14] MEDS: PROPOFOL 1000 MG/100 ML INJ 100 ML IV PRN ×6 (02:14→22:38)
[2017-06-14] MEDS: DEXMEDETOMIDINE INJ 1,000 MCG in SODIUM CHLOR 0.9% 250 ML INJ 240 ML IV PRN ×3 (03:22→18:35)
[2017-06-14] MEDS: CHLORHEXIDINE GLUCONATE 2 % 1 PACK (2 CLOTHS) TOP SCH (04:00)
[2017-06-14 05:23] LABS: AUTOMATED NEUTROPHIL # 13.2 TH/MM3 (1.8-7.7); BASOPHIL % 0.1 % (0.0-2.0); HEMATOCRIT 21.3 % (39.0-51.0); LYMPH % 9.9 % (9.0-44.0); LYMPHOCYTE # 1.6 TH/MM3 (1.0-4.8); MEAN CELL VOLUME 82.5 FL (80.0-100.0); MEAN CORPUSCULAR HEMOGLOBIN 26.1 PG (27.0-34.0); MEAN CORPUSCULAR HGB CONC 31.7 % (32.0-36.0); MONOCYTE # 1.6 TH/MM3 (0-0.9); PLATELET COUNT 175 TH/MM3 (150-450); RED BLOOD COUNT 2.58 MIL/MM3 (4.50-5.90); RED CELL DISTRIBUTION WIDTH 17.4 % (11.6-17.2); WHITE BLOOD COUNT 16.5 TH/MM3 (4.0-11.0)
[2017-06-14] MEDS: cloNIDine HCL 0.3 MG TAB PO SCH ×3 (05:44→23:02)
[2017-06-14] MEDS: FREE WATER G-TUBE SCH ×3 (05:44→22:00)
[2017-06-14] MEDS: ARTIFICIAL TEARS OPTH SOLN 15 ML BTL EACH EYE SCH ×3 (05:44→23:02)
[2017-06-14 05:50] LABS: ALBUMIN 1.9 GM/DL (3.4-5.0); BICARBONATE 24.3 MEQ/L (21.0-32.0); BLOOD UREA NITROGEN 105 MG/DL (7-18); CALCIUM 7.6 MG/DL (8.5-10.1); CHLORIDE 113 MEQ/L (98-107); GLOMERULAR FILTRATION RATE 31 ML/MIN (>89); GLUCOSE,RANDOM 214 MG/DL (74-106); SODIUM (NA) 148 MEQ/L (136-145)
[2017-06-14 05:52] LABS: ALT (GPT) 73 U/L (12-78); AST (GOT) 17 U/L (15-37)
[2017-06-14 05:53] LABS: ALKALINE PHOSPHATASE 50 U/L (45-117); TOTAL BILIRUBIN ADULT 0.5 MG/DL (0.2-1.0); TOTAL PROTEIN 5.4 GM/DL (6.4-8.2)
[2017-06-14 05:55] LABS: HEMOGLOBIN 6.7 GM/DL (13.0-17.0)
[2017-06-14] MEDS ORDERED: SODIUM CHLOR 0.9% 250 ML INJ 250 ML IV ONE (06:00)
[2017-06-14] MEDS: fentaNYL DRIP 250 ML IV PRN ×2 (07:05→18:36)
[2017-06-14] MEDS ORDERED: FUROSEMIDE 40 MG/4 ML VIAL IV PUSH ONE (08:30)
--- NOTE | 2017-06-14 08:31 | HHI.CCPN ---
Subjective Remarks/Hospital Course 05/19: Is a 36-year-old male with a history of hypertension who is on vacation from the [place] area who did not take his antihypertensives today because he is on vacation, and was having sexual intercourse when he had sudden onset of severe substernal radiating to the back chest pain earlier today. 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 He was emergently transferred to [facility] for further management. I evaluated the patient on arrival to the ICU by EVAC. Patient denies abdominal pain. Still endorses chest pain although this is improving. Patient denies any other symptoms. CT chest abdomen pelvis was reviewed and reviewed with myself and Dr. Guzman and does demonstrate a type B dissection. 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 Initial laboratory evidence demonstrates a lactate of 1.3, creatinine 1.2, normal LFTs. 05/20: On home C Pap. Urine output 30 cc/h currently. Remains on esmolol and labetalol drips. Remains drowsy though arousable. +4.4 L 05/21: Resting comfortably on nasal cannula. Awake and alert currently. Denies any shortness of breath or chest pain currently. 05/22: AAO x3, resting comfortably. 05/23 Patient went into PEA arrest early this morning now sedated with Diprivan and intubated. Off Esmolol drip. 05/24 Patient is sedated with Diprivan and intubated. On Labetolol drip. MRI brain yesterday showed multiple small infracts, no hemorrhage. 05/25 Patient remains intubated and sedated. T: 100.5 last night. Renal function is worsening with Cr: 3.6 from 3.4 and UOP: 2650ml in 24 hrs. 05/26 No events overnight. Sedated and intubated. Afebrile. Cr: 3.62 , UOP: 1950ml in 24 hrs 05/27 Patient was extubated yesterday placed on BIPAP overnight. Cr: 3.42 today , UOP: 1800 ml in 24 hrs 05/28 Extubated yesterday and per report was compliant with Bipap overnight Remains on esmolol drip 200 mcg/kg/min and SBP in 140s. ZULY, probable ATN non- oliguric however I>>0 with significant intake from MIVF as well as 180 mL/hr from esmolol drip. IVF d/c per nephrology and transitioning off esmolol to minimize fluid. Hugo now per my discussion with Dr. Thornton. He is tachypneic, obtained ABG with hypercapnea on simple mask. Placing On Bipap. at bedside requesting eventual transfer to [place], though she realized he is not stable for that yet. 05/29: Remains on BiPAP since 299 with increasing respiratory rates. Will attempt a more aggressive diuresis. We started on esmolol drip due to persistent tachycardia and unable to reach target blood pressure and heart rate requirements. At high risk for reintubation. 05/30: Remained hypotensive overnight. This a.m. 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 Will require bronchoscopy this afternoon. Continue with aggressive diuresis. Broad antibiotic coverage. Start tube feeding. The systolic blood pressure better controlled while intubated on propofol and fentanyl drips. 05/31: T-max 102.8. Currently 99.6. FiO2 down to 80%. The same noted elevated transaminases AST of 2674. ALT of 1590. Creatinine is increased to 3.07 to 4.36. +2 L past 24 hours. One bowel movement. Noted prior gallbladder wall thickening on previous ultrasound. We will repeat today Subjective 06/01: T-max 102.5. Currently 98.9. Desaturate overnight resolved currently FiO2 of 80%. 4500 cc urine output. Creatinine continues to rise currently 4.9. CPK currently 6165. We will discontinue propofol with hepatomegaly, rhabdomyolysis possibly indicative propofol infusion syndrome. 06/02 Patient remains intubated and sedated. On Fentanyl, Versed and Nimbex. T: 100.0 at midnight. On PC/AC with PEEP:15, FIO2 50% Renal function continue to decline with Cr: 5.40 from 4.91 and UOP: 2895 ml in 24 hrs 06/03 Patient remains intubated and sedated with Versed, Fentanyl drips. Remains on Nimbex and Flolan. Cr: 5.6 from 5.4 with UOP: 3790 ml in 24 hrs. 06/04:Afebrile. Overnight the patient had an episode of hypotension during the and all sedation was briefly discontinued, then resumed for ventilator synchrony. Clonidine dosage decreased. Patient continues on pressure control mode, and Flolan for adequate oxygenation. Creatinine noted to be 5.7 weight urine output 3220cc/24 hrs. 06/05: Afebrile. This x-ray revealed improving area aeration of the right hemithorax. PEEP decreased this a.m. to 12, patient continues on FiO2 55% and Flolan, planned weaning. Electrolytes currently being replaced. Elevated liver enzymes continue to down trend. 06/06: Respiratory requirements decreasing, patient now on Flolan 10 ng/kg/min with FiO2 at 60%, maintaining O2 saturation 92%. Creatinine continues to down trend. Leukocytosis improving. 06/07: Flolan discontinued, FIO2 65%. Propofol added to maintain ventilator synchrony. Patient currently on 10 mg of Versed and 250 mics of fentanyl. Wound care was consulted for skin breakdown on buttocks secondary to multiple bowel movements, patient continues on Avani bed. 06/08: No acute events overnight. Flolan discontinued greater than 18 hours patient's O2 saturation 97% on FiO2 of 65. FiO2 requirements decreased the patient continues on a PEEP of 12. Free water flushes added to medication regimen secondary to hypernatremia, sodium level 156 today. 06/09 Patient remains sedated and intubated. Afebrile. 06/10 Patient is sedated with Versed, Diprivan and Fentanyl drips, intubated. Afebrile. renal function is improving with Cr: 3.52 from 3.94 06/11 No events overnight. Sedated with Diprivan and Fentanyl drips. Off Versed. renal function continue to improve with Cr:3.16 from 3.52. 06/12 Patient remains intubated placed on CPAP with PS 12, PEEP:5 and FIO2 40%, Cr down 2.74 from 3.16. Afebrile. 06/13 No events overnight. Sedated with Diprivan, Fentanyl and on Precedex. Placed on labetalol yesterday 9mg. Afebrile. 06/14 No events overnight. Remains sedated and intubated, labetalol drip 5mg. Cr : 2.80. FOr transfusions 1unit PRBC fot Hgb 6.7 this morning. Objective Vital Signs Date Time Temp Pulse Resp B/P (MAP) Pulse Ox O2 Delivery O2 Flow Rate FiO2 06/14/17 07:20 97.5 63 16 127/60 98 06/14/17 04:00 35 Intake and Output 06/14/17 06/14/17 06/15/17 08:00 16:00 00:00 Intake Total 2214 ml Output Total 1600 ml Balance 614 ml Result Diagram: 06/14/17 0430 06/14/17 0430 Other Results Laboratory Tests Test 06/13/17 13:40 06/13/17 22:50 06/14/17 04:30 Urine Color YELLOW Urine Turbidity HAZY Urine pH 5.5 Urine Specific [place] 1.017 Urine Protein 30 mg/dL Urine Glucose (UA) NEG mg/dL Urine Ketones NEG mg/dL Urine Occult Blood SMALL Urine Nitrite NEG Urine Bilirubin NEG Urine Urobilinogen LESS THAN 2.0 MG/DL Urine Leukocyte Esterase TRACE Urine RBC 3 /hpf Urine WBC 4 /hpf Urine Amorphous Sediment RARE Urine Bacteria RARE /hpf Urine Mucus FEW /lpf Urine Yeast (Budding) OCC Microscopic Urinalysis Comment CATH-CULTURE IND Hemoglobin 7.1 GM/DL 6.7 GM/DL Hematocrit 22.1 % 21.3 % White Blood Count 16.5 TH/MM3 Red Blood Count 2.58 MIL/MM3 Mean Corpuscular Volume 82.5 FL Mean Corpuscular Hemoglobin 26.1 PG Mean Corpuscular Hemoglobin Concent 31.7 % Red Cell Distribution Width 17.4 % Platelet Count 175 TH/MM3 Mean Platelet Volume 10.0 FL Neutrophils (%) (Auto) 80.0 % Lymphocytes (%) (Auto) 9.9 % Monocytes (%) (Auto) 10.0 % Eosinophils (%) (Auto) 0.0 % Basophils (%) (Auto) 0.1 % Neutrophils # (Auto) 13.2 TH/MM3 Lymphocytes # (Auto) 1.6 TH/MM3 Monocytes # (Auto) 1.6 TH/MM3 Eosinophils # (Auto) 0.0 TH/MM3 Basophils # (Auto) 0.0 TH/MM3 CBC Comment DIFF FINAL Differential Comment Blood Urea Nitrogen 105 MG/DL Creatinine 2.80 MG/DL Random Glucose 214 MG/DL Total Protein 5.4 GM/DL Albumin 1.9 GM/DL Calcium Level 7.6 MG/DL Alkaline Phosphatase 50 U/L Aspartate Amino Transf (AST/SGOT) 17 U/L Alanine Aminotransferase (ALT/SGPT) 73 U/L Total Bilirubin 0.5 MG/DL Sodium Level 148 MEQ/L Potassium Level 3.8 MEQ/L Chloride Level 113 MEQ/L Carbon Dioxide Level 24.3 MEQ/L Anion Gap 11 MEQ/L Estimat Glomerular Filtration Rate 31 ML/MIN Imaging Last Impressions Chest X-Ray 06/13/17 0000 Signed Impressions: Service Date/Time: Tuesday, June 13, 2017 09:52 - CONCLUSION: 1. Midinspiratory exam. The endotracheal tube tip is at the level of the julee. 2. Apparent increase in hazy opacity in both lungs which may represent pulmonary edema or be artifactual secondary to the Midinspiratory study. Marvin Rivas MD Abdomen X-Ray 06/02/17 0000 Signed Impressions: Service Date/Time: May 10:18 - CONCLUSION: NG tip in stomach. Left basilar airspace disease. Elevated right hemidiaphragm. Bowel gas pattern demonstrates mild ileus Tc Varghese MD Liver Ultrasound 05/31/17 1434 Signed Impressions: Service Date/Time: Wednesday, May 31, 2017 14:40 - CONCLUSION: 1. Interval apparent hepatomegaly with diffusely increased hepatic echogenicity. Given the acuity of findings, findings may reflect acute hepatitis or congestive hepatopathy. 2. Persistently contracted gallbladder which accentuates the gallbladder wall with persistent gallbladder wall thickening and trace pericholecystic fluid. These findings are commonly seen in the setting of liver disease although differential considerations include acalculous cholecystitis. HIDA scan may be performed for better evaluation as clinically appropriate. 3. Andrew Karft MD Lung Scan-V Nuclear Medicine 05/23/17 0000 Signed Impressions: Service Date/Time: Tuesday, May 23, 2017 10:22 - CONCLUSION: Low probability of pulmonary embolism. Buddy Harrison MD FACR Lower Extremity Ultrasound 05/23/17 0000 Signed Impressions: Service Date/Time: Tuesday, May 23, 2017 08:02 - CONCLUSION: Negative for deep venous thrombosis. Buddy Harrison MD FACR Head CT 05/23/17 0000 Signed Impressions: Service Date/Time: Tuesday, May 23, 2017 03:56 - CONCLUSION: 1. Examination quality is degraded by motion artifact. 2. No definite acute finding is identified. There is a 3 mm punctate area of high density in the left frontal periventricular white matter. This could represent small focus of acute blood products. Suggest attention to this on followup imaging. Wiliam Buck MD Brain MRI 05/23/17 0000 Signed Impressions: Service Date/Time: Tuesday, May 23, 2017 15:59 - CONCLUSION: 1. 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 2. No hemorrhage observe. 3. Pansinus disease. Rudy Cervantes Jr., MD Aorta CTA 05/23/17 0000 Signed Impressions: Service Date/Time: Tuesday, May 23, 2017 03:58 - CONCLUSION: 1. 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 The dissection extends to the abdominal aorta and terminates in the common iliac arteries bilaterally. The abdominal vessels arise from both the true and false lumens and demonstrate good opacification. Suggest correlating with the patient's prior imaging study which documents the dissection. 2. 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 3. There is stranding of the periaortic fat adjacent to the arch aneurysm. 4. There are small bilateral pleural effusions, left larger than right, with bilateral volume loss and/or airspace consolidation bilaterally. Wiliam Buck MD Abdomen Ultrasound 05/23/17 0000 Signed Impressions: Service Date/Time: Tuesday, May 23, 2017 17:22 - CONCLUSION: 1. Gall bladder wall thickening and possible pericholecystic fluid without evidence of gallstones. May consider perform hepatic biliary tract scan to evaluate for acalculous cholecystitis. 2. No focal abnormality seen within the liver. Rudy Pollock MD Objective Remarks GENERAL: This is a 36-year-old well-developed well-nourished AA male resting in bed orotracheally intubated, and sedated SKIN: Warm and dry, adequately perfused. HEAD: Normocephalic. EYES: Pupils 3 mm and reactive. No scleral icterus. No injection or drainage. NECK: Supple, trachea midline. No JVD or lymphadenopathy. Left IJ CVL is clean dry and intact CARDIOVASCULAR: Distant. RRR. S1, S2 no S4. Cannot appreciate murmurs, clicks , gallops or rubs RESPIRATORY: Coarse rhonchorous crackles noted throughout all lung [place] anterior-posterior bilaterally. No wheezing GASTROINTESTINAL: Abdomen soft, non-tender, nondistended. Hypoactive bowel sounds are appreciated MUSCULOSKELETAL: No cyanosis. Edema 2+ bilateral upper and lower extremities NEURO: Currently sedated on Versed, propofol and fentanyl drips. Positive gag and corneal reflex. Positive cough. 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 On Fentanyl, Propofol, Precedex drip infusion for sedation and to maintain ventilator synchrony. Goal of RASS -2 Daily sedation vacation Acetaminophen 650 mg by tube every 6 hours as needed fever discontinued due to elevated transaminases Evaluated by neurology/Dr. Espinosa MRI brain 05/23 revealed bilateral frontal embolic CVA CT brain: There is a 3 mm punctate area of high density in the left frontal periventricular white matter. This could represent small focus of acute blood products. EEG : Mild diffuse encephalopathy, no seizure activity Continue aspirin 162 mg p.o. daily. Okayed with neurology. CV: Hypertensive emergency Acute type B aortic dissection Elevated troponin PEA cardiac arrest 05/23/17, secondary to obstructive sleep apnea/obesity hypoventilation syndrome with Bipap nonadherence. CTA stable. VQ scan negative . Hyperlipidemia Monitor HR and BP keep MAP>65mmHg Wean off Labetalol drip Currently on carvedilol 25 mg twice daily Diltiazem 90 mg every 6 hours Clonidine 0.3 mg every 8 hours Repeat echo 05/23: EF 60-65%, no RWMA Evaluated by cardiology, Dr. Bhakta on 05/24 due to troponin elevation. He attributed elevated troponin to PEA arrest, hypoxia, renal insufficiency. No further ischemic workup planned at this time. 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 The dissection extends to the abdominal aorta and terminates in the common iliac arteries bilaterally. The abdominal vessels arise from both the true and false lumens and demonstrate good opacification. Vascular surgery is following- Dr. Guzman Pulm: Obstructive sleep apnea Obesity hypoventilation syndrome Acute hypercapnic respiratory failure intubated 05/30 Ventilator dependent respiratory failure PRVC RR 16, TV 500, IT:1.0, PEEP:8, FIO2: 35%, Ventilator bundle Bronchodilators, DuoNeb Q4, Mucomyst nebs Solumederol 40mg IV daily Check ABG V/Q scan: low prob PE s/p bronch today showed mucous plugs/ thick secretions b/l, normal mucosa, no evidence of EBL, BAL performed RUL. Status post bronchoscopy 05/30 revealed no mucus plugging. Normal bronchial mucosa without lesions. No signs of bleeding. LEN negative Renal/: Nonoliguric acute kidney injury Rhabdo Electrolyte derangement Likely secondary to ischemic ATN following cardiac arrest. Cr: 2.80 today, UOP: 3400ml in 24 hrs Renal is following- Dr. Flannery US abdomen: No hydronephrosis. On free water 250ml Q8, monitor sodium level. Diurese with Lasix 40mg x1 GI: Elevated transaminases Hypoalbuminemia Hyperammonia Continue Nepro @ 55ml/hr-no residuals Famotidine 10 mg BID for GI prophylaxis Docusate/senna 1 tablet twice daily, polyethylene glycol 17 g twice daily and lactulose 30 cc twice daily for bowel regimen. Monitor LFT's (trending down),Hep profile is negative Abdominal ultrasound 05/31 -market hepatic congestion. Contracted gallbladder with pericholecystic fluid. Possible acalculous cholecystitis recommend HIDA scan if clinically able. US abdomen: Gall bladder wall thickening and possible pericholecystic fluid without evidence of gallstones. Recommend HIDA scan if clinically indicated Lactulose 30 cc 4 times daily. GI following Heme: Persistent Leukocytosis Microcytic anemia Monitor CBC, for transfusion 1u PRBC today for Hgb 7.7 VQ scan negative 05/23 BLE u/s negative for DVT 05/23 ID: MSSA pneumonia Abx per ID ( On Cefepime) Monitor for signs of infections ( Fever, WBC) ID is following- , follow up on sputum and urine cxs Pertinent: C-diff PCR negative on 06/04 and 06/09 06/08 -sputum -normal resp lizzie 05/31/13 -blood cultures 2 -pending 05/30 -bronchoscopy -no growth 05/30 -sputum -rare WBC/budding yeast 05/30 -blood cultures 2 -pending 05/25 -blood cultures 2 -no growth to date 05/25 -urine culture -no growth to date 05/23 -sputum -MSSA 05/23 -blood cultures 2 -no growth to date Endo: SSI ( medium scale) NovUlin R medium regimen every 6 hours sliding scale. Levemir 7u Q12 TSH 2.3 PROPH: SCDs hold /Heparin subcut for anemia requiring blood transfusion and Hemoccult positive ACCESS Left IJ CVL placed 05/31 Level 3 Abner Elizabeth MD Jun 14, 2017 08:31
[2017-06-14] MEDS: INSULIN DETEMIR 100 UNITS/ML VIAL SQ SCH ×2 (08:55→20:01)
[2017-06-14] MEDS: CHLORHEXIDINE 0.12% (ORAL KIT) 15 ML CUP MT SCH ×2 (08:55→20:00)
[2017-06-14] MEDS: CARVEDILOL 12.5 MG TAB PO SCH ×2 (08:55→20:01)
[2017-06-14] MEDS: SODIUM CHLORIDE 0.9% FLUSH 10 ML FLUSH IV FLUSH SCH (08:56)
[2017-06-14] MEDS: methylPREDNISolone SOD SUCC 40 MG/1 ML VIAL IV PUSH SCH (08:56)
[2017-06-14] MEDS: FAMOTIDINE 20 MG TAB PO SCH ×2 (08:57→20:01)
[2017-06-14 11:42] LABS: HEMATOCRIT 24.7 % (39.0-51.0); HEMOGLOBIN 8.1 GM/DL (13.0-17.0)
[2017-06-14] MEDS: LABETALOL HCL 100 MG/20 ML VIAL IV PUSH PRN ×2 (12:11→17:33)
--- NOTE | 2017-06-14 13:04 | HHI.NPPN ---
Subjective History of Present Illness 36 year old with Aortic dissection ARF Additional Remarks Patient remains intubated Objective Data Data 06/14/17 06/15/17 19:00 07:00 Intake Total 1330 ml Balance 1330 ml IV Total 895 ml Packed Cells 400 ml Blood Product IV Normal Saline Flush 35 ml Vital Signs Date Time Temp Pulse Resp B/P (MAP) Pulse Ox O2 Delivery O2 Flow Rate FiO2 06/14/17 12:00 35 06/14/17 11:29 100 35 06/14/17 10:00 65 06/14/17 09:55 35 06/14/17 09:30 64 16 128/60 (82) 98 06/14/17 09:15 64 16 129/62 (84) 97 06/14/17 09:00 63 16 128/62 (84) 97 06/14/17 08:45 63 16 127/60 (82) 97 06/14/17 08:32 100 35 06/14/17 08:30 64 16 126/60 (82) 99 06/14/17 08:15 63 16 126/59 (81) 98 06/14/17 08:00 97.5 64 16 124/59 (80) 97 06/14/17 08:00 64 06/14/17 08:00 35 06/14/17 07:45 63 16 126/60 (82) 97 06/14/17 07:30 64 16 126/59 (81) 97 06/14/17 07:20 97.5 63 16 127/60 98 06/14/17 07:15 63 16 127/60 (82) 98 06/14/17 07:06 97.6 64 16 123/57 97 06/14/17 07:00 65 16 123/57 (79) 97 06/14/17 06:00 67 06/14/17 04:00 98.7 67 16 129/59 (82) 98 06/14/17 04:00 99 35 06/14/17 04:00 67 06/14/17 04:00 35 06/14/17 02:00 67 06/14/17 00:50 99 35 06/14/17 00:00 98.7 69 16 135/64 (87) 96 06/14/17 00:00 69 06/14/17 00:00 35 06/13/17 22:00 70 06/13/17 20:27 93 35 06/13/17 20:00 98.3 71 16 135/64 (87) 92 06/13/17 20:00 35 06/13/17 20:00 71 06/13/17 18:00 74 06/13/17 16:00 35 06/13/17 16:00 98.9 73 7 145/69 (94) 97 06/13/17 16:00 73 06/13/17 15:45 73 6 139/65 (89) 96 06/13/17 15:30 75 6 136/64 (88) 96 06/13/17 15:20 95 35 06/13/17 15:15 75 6 133/63 (86) 95 06/13/17 15:00 76 7 133/63 (86) 96 06/13/17 14:30 75 6 134/63 (86) 96 06/13/17 14:15 76 9 133/63 (86) 97 06/13/17 14:00 78 06/13/17 14:00 78 9 131/62 (85) 96 06/13/17 13:45 78 7 132/62 (85) 96 06/13/17 13:30 77 11 136/63 (87) 97 06/13/17 13:15 77 9 145/69 (94) 97 -: 06/14/17 1115 06/14/17 0430 Microbiology 06/13/17 Urine Culture - Preliminary, Resulted Yeast-Id To Follow Physical Exam General Appearance: Well Developed Eyes Eye Exam: Pupils Equal Neck Neck Exam: Neck Supple Pulmonary Resp Exam: Clear Bilaterally Cardiology CV Exam: Regular, Normal Sinus Rhythm Gastrointestinal/Abdomen GI Exam: Soft, Non-Tender Genitourinary Exam: Clear Urine Integumentary Skin Exam: Intact Extremeties Extremities Exam: Moderate Edema, Pitting Edema, Dependent Edema Assessment/Plan Problem List: (1) Acute renal failure ICD Codes: N17.9 - Acute kidney failure, unspecified Plan: He has large dissection of aorta continue to monitor he is passing urine , creatinine he did receive IV contrast repeat CTA Dissection up to Common Iliac arteries seen with true and false lumen perfused Cr 5.6-> 5.7 -> 5.7 -> 5.3 -> 5 -> 4.4-. 3.9-> 3.5 ->3.16-> 2.74 -> 2.8->2.8 non oliguric, off all diuretics off IVF water 250 ml q 8 Sodium 148 PRBC/Lasix given UOP 3.4 L BUN decreased slightly K normal remains intubated Patient has good urine out. (2) Dissection of aorta, thoracoabdominal ICD Codes: I71.03 - Dissection of thoracoabdominal aorta Status: Acute Plan: vascular is following Renal arteries remains perfused Roz Flannery MD Jun 14, 2017 13:04
[2017-06-14] MEDS: ASPIRIN 81 MG CHEW TAB CHEW SCH (13:43)
--- NOTE | 2017-06-14 16:25 | HHI.IDPN ---
Subjective Subjective Remarks cont to have diarrhea cont to have increasing WBC remains on vent Antibiotics cefepime Allergies: Coded Allergies: No Known Allergies (Unverified , 05/19/17) Objective . Vital Signs Date Time Temp Pulse Resp B/P (MAP) Pulse Ox O2 Delivery O2 Flow Rate FiO2 06/14/17 15:49 95 45 06/14/17 14:00 66 06/14/17 13:45 64 24 135/65 (88) 95 06/14/17 13:30 63 24 135/64 (87) 96 06/14/17 13:15 65 24 132/62 (85) 95 06/14/17 13:00 66 24 131/60 (83) 95 06/14/17 12:45 67 24 134/62 (86) 95 06/14/17 12:30 67 24 144/69 (94) 94 06/14/17 12:15 69 24 144/70 (94) 93 06/14/17 12:00 68 06/14/17 12:00 35 06/14/17 12:00 97.4 68 24 139/67 (91) 94 06/14/17 11:45 64 24 140/70 (93) 94 06/14/17 11:30 63 24 140/70 (93) 94 06/14/17 11:29 100 35 06/14/17 11:15 63 24 134/66 (88) 95 06/14/17 11:00 64 24 134/64 (87) 96 06/14/17 10:45 64 24 130/60 (83) 96 06/14/17 10:30 65 24 125/58 (80) 96 06/14/17 10:15 65 24 126/58 (80) 97 06/14/17 10:00 65 06/14/17 10:00 65 0 123/60 (81) 97 06/14/17 09:55 35 06/14/17 09:30 64 16 128/60 (82) 98 06/14/17 09:15 64 16 129/62 (84) 97 06/14/17 09:00 63 16 128/62 (84) 97 06/14/17 08:45 63 16 127/60 (82) 97 06/14/17 08:32 100 35 06/14/17 08:30 64 16 126/60 (82) 99 06/14/17 08:15 63 16 126/59 (81) 98 06/14/17 08:00 97.5 64 16 124/59 (80) 97 06/14/17 08:00 64 06/14/17 08:00 35 06/14/17 07:45 63 16 126/60 (82) 97 06/14/17 07:30 64 16 126/59 (81) 97 06/14/17 07:20 97.5 63 16 127/60 98 06/14/17 07:15 63 16 127/60 (82) 98 06/14/17 07:06 97.6 64 16 123/57 97 06/14/17 07:00 65 16 123/57 (79) 97 06/14/17 06:00 67 06/14/17 04:00 98.7 67 16 129/59 (82) 98 06/14/17 04:00 99 35 06/14/17 04:00 67 06/14/17 04:00 35 06/14/17 02:00 67 06/14/17 00:50 99 35 06/14/17 00:00 98.7 69 16 135/64 (87) 96 06/14/17 00:00 69 06/14/17 00:00 35 06/13/17 22:00 70 06/13/17 20:27 93 35 06/13/17 20:00 98.3 71 16 135/64 (87) 92 06/13/17 20:00 35 06/13/17 20:00 71 06/13/17 18:00 74 06/14/17 06/14/17 06/15/17 15:00 23:00 07:00 Intake Total 1830 ml Balance 1830 ml IV Total 1395 ml Packed Cells 400 ml Blood Product IV Normal Saline Flush 35 ml . Laboratory Tests Test 06/13/17 06:00 06/13/17 22:50 06/14/17 04:30 06/14/17 11:15 White Blood Count 15.9 TH/MM3 16.5 TH/MM3 Red Blood Count 2.85 MIL/MM3 2.58 MIL/MM3 Hemoglobin 7.5 GM/DL 7.1 GM/DL 6.7 GM/DL 8.1 GM/DL Hematocrit 23.6 % 22.1 % 21.3 % 24.7 % Mean Corpuscular Volume 82.9 FL 82.5 FL Mean Corpuscular Hemoglobin 26.4 PG 26.1 PG Mean Corpuscular Hemoglobin Concent 31.9 % 31.7 % Red Cell Distribution Width 17.2 % 17.4 % Platelet Count 199 TH/MM3 175 TH/MM3 Mean Platelet Volume 10.1 FL 10.0 FL Neutrophils (%) (Auto) 85.4 % 80.0 % Lymphocytes (%) (Auto) 6.9 % 9.9 % Monocytes (%) (Auto) 7.5 % 10.0 % Eosinophils (%) (Auto) 0.0 % 0.0 % Basophils (%) (Auto) 0.2 % 0.1 % Neutrophils # (Auto) 13.6 TH/MM3 13.2 TH/MM3 Lymphocytes # (Auto) 1.1 TH/MM3 1.6 TH/MM3 Monocytes # (Auto) 1.2 TH/MM3 1.6 TH/MM3 Eosinophils # (Auto) 0.0 TH/MM3 0.0 TH/MM3 Basophils # (Auto) 0.0 TH/MM3 0.0 TH/MM3 CBC Comment DIFF FINAL DIFF FINAL Differential Comment Laboratory Tests Test 06/12/17 21:08 06/13/17 06:00 06/14/17 04:30 Potassium Level 3.8 MEQ/L 3.9 MEQ/L 3.8 MEQ/L Blood Urea Nitrogen 106 MG/DL 105 MG/DL Creatinine 2.85 MG/DL 2.80 MG/DL Random Glucose 249 MG/DL 214 MG/DL Total Protein 5.7 GM/DL 5.4 GM/DL Calcium Level 7.4 MG/DL 7.6 MG/DL Sodium Level 150 MEQ/L 148 MEQ/L Chloride Level 115 MEQ/L 113 MEQ/L Carbon Dioxide Level 24.2 MEQ/L 24.3 MEQ/L Anion Gap 11 MEQ/L 11 MEQ/L Estimat Glomerular Filtration Rate 31 ML/MIN 31 ML/MIN Protein Corrected Calcium 8.2 MG/DL Albumin 1.9 GM/DL Alkaline Phosphatase 50 U/L Aspartate Amino Transf (AST/SGOT) 17 U/L Alanine Aminotransferase (ALT/SGPT) 73 U/L Total Bilirubin 0.5 MG/DL Microbiology Date/Time Source Procedure Growth Status 06/13/17 07:55 Stool Stool Stool Occult Blood (EILEEN) - Final HEMOCCULT POSITIVE Complete 06/13/17 11:50 Sputum Endotracheal Gram Stain - Final Resulted 06/13/17 11:50 Sputum Culture - Preliminary Pseudomonas Species Resulted 06/13/17 13:40 Urine Catheterized Urine Urine Culture - Preliminary Yeast-Id To Follow Resulted Imaging Last Impressions Chest X-Ray 06/13/17 0000 Signed Impressions: Service Date/Time: Tuesday, June 13, 2017 09:52 - CONCLUSION: 1. Midinspiratory exam. The endotracheal tube tip is at the level of the julee. 2. Apparent increase in hazy opacity in both lungs which may represent pulmonary edema or be artifactual secondary to the Midinspiratory study. Marvin Rivas MD Abdomen X-Ray 06/02/17 0000 Signed Impressions: Service Date/Time: May 10:18 - CONCLUSION: NG tip in stomach. Left basilar airspace disease. Elevated right hemidiaphragm. Bowel gas pattern demonstrates mild ileus Tc Varghese MD Liver Ultrasound 05/31/17 1434 Signed Impressions: Service Date/Time: Wednesday, May 31, 2017 14:40 - CONCLUSION: 1. Interval apparent hepatomegaly with diffusely increased hepatic echogenicity. Given the acuity of findings, findings may reflect acute hepatitis or congestive hepatopathy. 2. Persistently contracted gallbladder which accentuates the gallbladder wall with persistent gallbladder wall thickening and trace pericholecystic fluid. These findings are commonly seen in the setting of liver disease although differential considerations include acalculous cholecystitis. HIDA scan may be performed for better evaluation as clinically appropriate. 3. Andrew Kraft MD Lung Scan- Nuclear Medicine 05/23/17 0000 Signed Impressions: Service Date/Time: Tuesday, May 23, 2017 10:22 - CONCLUSION: Low probability of pulmonary embolism. Buddy Harrison MD FACR Lower Extremity Ultrasound 05/23/17 0000 Signed Impressions: Service Date/Time: Tuesday, May 23, 2017 08:02 - CONCLUSION: Negative for deep venous thrombosis. Buddy Harrison MD FACR Head CT 05/23/17 0000 Signed Impressions: Service Date/Time: Tuesday, May 23, 2017 03:56 - CONCLUSION: 1. Examination quality is degraded by motion artifact. 2. No definite acute finding is identified. There is a 3 mm punctate area of high density in the left frontal periventricular white matter. This could represent small focus of acute blood products. Suggest attention to this on followup imaging. Wiliam Buck MD Brain MRI 05/23/17 0000 Signed Impressions: Service Date/Time: Tuesday, May 23, 2017 15:59 - CONCLUSION: 1. 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 2. No hemorrhage observe. 3. Pansinus disease. Rudy Cervantes Jr., MD Aorta CTA 05/23/17 0000 Signed Impressions: Service Date/Time: Tuesday, May 23, 2017 03:58 - CONCLUSION: 1. 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 The dissection extends to the abdominal aorta and terminates in the common iliac arteries bilaterally. The abdominal vessels arise from both the true and false lumens and demonstrate good opacification. Suggest correlating with the patient's prior imaging study which documents the dissection. 2. 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 3. There is stranding of the periaortic fat adjacent to the arch aneurysm. 4. There are small bilateral pleural effusions, left larger than right, with bilateral volume loss and/or airspace consolidation bilaterally. Wiliam Buck MD Abdomen Ultrasound 05/23/17 0000 Signed Impressions: Service Date/Time: Tuesday, May 23, 2017 17:22 - CONCLUSION: 1. Gall bladder wall thickening and possible pericholecystic fluid without evidence of gallstones. May consider perform hepatic biliary tract scan to evaluate for acalculous cholecystitis. 2. No focal abnormality seen within the liver. Rudy Pollock MD Physical Exam CONSTITUTIONAL/GENERAL: This is an adequately nourished patient, sedated int'd on vent TUBES/LINES/DRAINS: SKIN: No jaundice, rashes, or lesions. Skin temperature appropriate. Not diaphoretic. EYES: Pupils equal and round and reactive. Extraocular motions intact. No scleral icterus. No injection or drainage. Fundi not examined. CARDIOVASCULAR: Regular rate and rhythm without murmurs, gallops, or rubs. No JVD. Peripheral pulses symmetric. RESPIRATORY/CHEST: Symmetric, unlabored respirations. few scattered rhonchi to auscultation. Breath sounds equal bilaterally. GASTROINTESTINAL: Abdomen soft, non-tender, nondistended. No hepato-splenomegaly , or palpable masses. No guarding. Bowel sounds present. Incontinent of large brown stool GENITOURINARY: Without palpable bladder distension. Ledesma catheter in place with very light yellow urine MUSCULOSKELETAL: Extremities without clubbing, cyanosis, improving edema, 2 +, less tight No mottling or clubbing. NEUROLOGICAL: sedated per RN moves all 4 extremeies spontaneously PSYCHIATRIC: unable to assess Assessment & Plan Remarks Type B AAA dissection PNA, clx negative, but BAL cw PNA, 24 K WBC growing budding yeast from BAL - doubt clin significance CXR looks worse growing PSAE in the sputums Acute VDRF - failure to wean Non oliguric ARF Fever -resolved Leukocytosis, bandemia - improving to some degree leukocytosis is probably 2/2 sterroids; wont expect bancdemis 2/2 it however bands are less Abx associated ileus , diarrhea - c.diff negative x 2 dc cefepime start meropenem fu sputum clx repeat stool for C.diff Discussed Condition With Nalini Bliss MD Jun 14, 2017 16:25
[2017-06-14] MEDS ORDERED: MISCELLANEOUS PHARMACY INFORMATION XX PRN (17:00)
[2017-06-14] MEDS ORDERED: ASP: ID consult, note reason in consult order PRN (17:00)
[2017-06-14] MEDS: MEROPENEM INJ 1,000 MG in SODIUM CHLORIDE 0.9% INJ 100 ML IV SCH (17:47)
[2017-06-14 18:29] LABS: HEMOGLOBIN 8.3 GM/DL (13.0-17.0)
[2017-06-15] VITALS (13 sets, daily range): BP systolic 105–133; BP diastolic 56–67; PULSE 56–66; RESP 0–24; TEMP 97.5–98.8; O2SAT 93–99
[2017-06-15] MEDS: NS IV PRN ×14 (01:17→20:49)
[2017-06-15] MEDS: LABETALOL IV PRN ×14 (01:17→20:49)
[2017-06-15] MEDS: DEXMEDETOMIDINE INJ 1,000 MCG in SODIUM CHLOR 0.9% 250 ML INJ 240 ML IV PRN ×2 (01:45→14:40)
[2017-06-15] MEDS: PROPOFOL 1000 MG/100 ML INJ 100 ML IV PRN ×5 (02:27→21:08)
[2017-06-15] MEDS: hydrALAZINE HCL 50 MG TAB OG-TUBE SCH ×4 (02:27→20:02)
[2017-06-15] MEDS: CHLORHEXIDINE GLUCONATE 2 % 1 PACK (2 CLOTHS) TOP SCH (04:00)
[2017-06-15] MEDS: ARTIFICIAL TEARS OPTH SOLN 15 ML BTL EACH EYE SCH ×3 (04:39→22:00)
[2017-06-15] MEDS: MEROPENEM INJ 1,000 MG in SODIUM CHLORIDE 0.9% INJ 100 ML IV SCH ×2 (04:39→17:36)
[2017-06-15] MEDS: fentaNYL DRIP 250 ML IV PRN (04:39)
[2017-06-15] MEDS: FREE WATER G-TUBE SCH ×3 (04:39→22:00)
[2017-06-15] MEDS: cloNIDine HCL 0.3 MG TAB PO SCH ×3 (04:39→22:49)
[2017-06-15] MEDS: DILTIAZEM HCL 90 MG TAB PO SCH ×4 (04:39→22:49)
[2017-06-15 04:45] LABS: AUTOMATED NEUTROPHIL # 16.1 TH/MM3 (1.8-7.7); BASOPHIL % 0.1 % (0.0-2.0); EOSINOPHIL % 0.1 % (0.0-4.0); HEMATOCRIT 23.4 % (39.0-51.0); LYMPH % 7.6 % (9.0-44.0); LYMPHOCYTE # 1.5 TH/MM3 (1.0-4.8); MEAN CELL VOLUME 80.8 FL (80.0-100.0); MEAN CORPUSCULAR HEMOGLOBIN 27.6 PG (27.0-34.0); MEAN CORPUSCULAR HGB CONC 34.1 % (32.0-36.0); MEAN PLATELET VOLUME 10.4 FL (7.0-11.0); MONO % 9.3 % (0.0-8.0); MONOCYTE # 1.8 TH/MM3 (0-0.9); NEUT % 82.9 % (16.0-70.0); PLATELET COUNT 173 TH/MM3 (150-450); WHITE BLOOD COUNT 19.4 TH/MM3 (4.0-11.0)
[2017-06-15 04:59] LABS: BICARBONATE 23.6 MEQ/L (21.0-32.0); CALCIUM 7.5 MG/DL (8.5-10.1); CREATININE 2.56 MG/DL (0.60-1.30)
[2017-06-15 05:25] LABS: LYMPHOCYTES 6 % (9-44); MONOCYTES 5 % (0-8); MYELOCYTES 1 % (0-0); NEUTROPHIL # MANUAL DIFF 17.3 TH/MM3 (1.8-7.7); POLYS (SEG NEUTROPHILS) 88 % (16-70)
[2017-06-15 05:26] LABS: OVALOCYTES 1+ (NORMAL)
--- NOTE | 2017-06-15 05:38 | RADRPT ---
EXAM DATE/TIME: 06/15/2017 03:56 [facility] COMPARISON: CHEST SINGLE AP, June 13, 2017, 9:52. INDICATIONS : Short of breath. MEDICAL HISTORY : Hypertension. Aortic dissection, VDRF SURGICAL HISTORY : None. ENCOUNTER: Subsequent ACUITY: 1 month PAIN SCORE: 0/10 LOCATION: Bilateral chest FINDINGS: A single view of the chest demonstrates bilateral haziness. Diminished lung volumes. Endotracheal tub e, nasogastric tube and left jugular central line in stable position. Osseous structures are intact. CONCLUSION: Diminished lung volumes and bilateral hazy opacities are again seen. Juancarlos Contreras MD on June 15, 2017 at 5:35 Board Certified Radiologist. This report was verified electronically.
[2017-06-15] MEDS: INSULIN NovoLIN REGULAR SUPPLEMENTAL SCALE SQ SCH ×4 (05:59→22:49)
[2017-06-15] MEDS: RESP: ALBUTEROL 2.5 MG/3 ML NEB (PRN) NEB ×3 (08:35→21:58)
[2017-06-15] MEDS: CHLORHEXIDINE 0.12% (ORAL KIT) 15 ML CUP MT SCH ×2 (08:37→20:02)
[2017-06-15] MEDS: ASPIRIN 81 MG CHEW TAB CHEW SCH (08:38)
[2017-06-15] MEDS: FAMOTIDINE 20 MG TAB PO SCH ×2 (08:39→20:02)
[2017-06-15] MEDS: CARVEDILOL 12.5 MG TAB PO SCH ×2 (08:39→20:02)
[2017-06-15] MEDS: INSULIN DETEMIR 100 UNITS/ML VIAL SQ SCH ×2 (08:39→20:02)
[2017-06-15] MEDS: methylPREDNISolone SOD SUCC 40 MG/1 ML VIAL IV PUSH SCH (08:39)
[2017-06-15] MEDS: SODIUM CHLORIDE 0.9% FLUSH 10 ML FLUSH IV FLUSH SCH (08:40)
--- NOTE | 2017-06-15 12:41 | HHI.CCPN ---
Subjective Remarks/Hospital Course 05/19: Is a 36-year-old male with a history of hypertension who is on vacation from the [place] area who did not take his antihypertensives today because he is on vacation, and was having sexual intercourse when he had sudden onset of severe substernal radiating to the back chest pain earlier today. 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 He was emergently transferred to [facility] for further management. I evaluated the patient on arrival to the ICU by EVAC. Patient denies abdominal pain. Still endorses chest pain although this is improving. Patient denies any other symptoms. CT chest abdomen pelvis was reviewed and reviewed with myself and Dr. Guzman and does demonstrate a type B dissection. 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 Initial laboratory evidence demonstrates a lactate of 1.3, creatinine 1.2, normal LFTs. 05/20: On home C Pap. Urine output 30 cc/h currently. Remains on esmolol and labetalol drips. Remains drowsy though arousable. +4.4 L 05/21: Resting comfortably on nasal cannula. Awake and alert currently. Denies any shortness of breath or chest pain currently. 05/22: AAO x3, resting comfortably. 05/23 Patient went into PEA arrest early this morning now sedated with Diprivan and intubated. Off Esmolol drip. 05/24 Patient is sedated with Diprivan and intubated. On Labetolol drip. MRI brain yesterday showed multiple small infracts, no hemorrhage. 05/25 Patient remains intubated and sedated. T: 100.5 last night. Renal function is worsening with Cr: 3.6 from 3.4 and UOP: 2650ml in 24 hrs. 05/26 No events overnight. Sedated and intubated. Afebrile. Cr: 3.62 , UOP: 1950ml in 24 hrs 05/27 Patient was extubated yesterday placed on BIPAP overnight. Cr: 3.42 today , UOP: 1800 ml in 24 hrs 05/28 Extubated yesterday and per report was compliant with Bipap overnight Remains on esmolol drip 200 mcg/kg/min and SBP in 140s. ZULY, probable ATN non- oliguric however I>>0 with significant intake from MIVF as well as 180 mL/hr from esmolol drip. IVF d/c per nephrology and transitioning off esmolol to minimize fluid. Hugo now per my discussion with Dr. Thornton. He is tachypneic, obtained ABG with hypercapnea on simple mask. Placing On Bipap. at bedside requesting eventual transfer to [place], though she realized he is not stable for that yet. 05/29: Remains on BiPAP since 299 with increasing respiratory rates. Will attempt a more aggressive diuresis. We started on esmolol drip due to persistent tachycardia and unable to reach target blood pressure and heart rate requirements. At high risk for reintubation. 05/30: Remained hypotensive overnight. This a.m. 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 Will require bronchoscopy this afternoon. Continue with aggressive diuresis. Broad antibiotic coverage. Start tube feeding. The systolic blood pressure better controlled while intubated on propofol and fentanyl drips. 05/31: T-max 102.8. Currently 99.6. FiO2 down to 80%. The same noted elevated transaminases AST of 2674. ALT of 1590. Creatinine is increased to 3.07 to 4.36. +2 L past 24 hours. One bowel movement. Noted prior gallbladder wall thickening on previous ultrasound. We will repeat today Subjective 06/01: T-max 102.5. Currently 98.9. Desaturate overnight resolved currently FiO2 of 80%. 4500 cc urine output. Creatinine continues to rise currently 4.9. CPK currently 6165. We will discontinue propofol with hepatomegaly, rhabdomyolysis possibly indicative propofol infusion syndrome. 06/02 Patient remains intubated and sedated. On Fentanyl, Versed and Nimbex. T: 100.0 at midnight. On PC/AC with PEEP:15, FIO2 50% Renal function continue to decline with Cr: 5.40 from 4.91 and UOP: 2895 ml in 24 hrs 06/03 Patient remains intubated and sedated with Versed, Fentanyl drips. Remains on Nimbex and Flolan. Cr: 5.6 from 5.4 with UOP: 3790 ml in 24 hrs. 06/04:Afebrile. Overnight the patient had an episode of hypotension during the and all sedation was briefly discontinued, then resumed for ventilator synchrony. Clonidine dosage decreased. Patient continues on pressure control mode, and Flolan for adequate oxygenation. Creatinine noted to be 5.7 weight urine output 3220cc/24 hrs. 06/05: Afebrile. This x-ray revealed improving area aeration of the right hemithorax. PEEP decreased this a.m. to 12, patient continues on FiO2 55% and Flolan, planned weaning. Electrolytes currently being replaced. Elevated liver enzymes continue to down trend. 06/06: Respiratory requirements decreasing, patient now on Flolan 10 ng/kg/min with FiO2 at 60%, maintaining O2 saturation 92%. Creatinine continues to down trend. Leukocytosis improving. 06/07: Flolan discontinued, FIO2 65%. Propofol added to maintain ventilator synchrony. Patient currently on 10 mg of Versed and 250 mics of fentanyl. Wound care was consulted for skin breakdown on buttocks secondary to multiple bowel movements, patient continues on Avani bed. 06/08: No acute events overnight. Flolan discontinued greater than 18 hours patient's O2 saturation 97% on FiO2 of 65. FiO2 requirements decreased the patient continues on a PEEP of 12. Free water flushes added to medication regimen secondary to hypernatremia, sodium level 156 today. 06/09 Patient remains sedated and intubated. Afebrile. 06/10 Patient is sedated with Versed, Diprivan and Fentanyl drips, intubated. Afebrile. renal function is improving with Cr: 3.52 from 3.94 06/11 No events overnight. Sedated with Diprivan and Fentanyl drips. Off Versed. renal function continue to improve with Cr:3.16 from 3.52. 06/12 Patient remains intubated placed on CPAP with PS 12, PEEP:5 and FIO2 40%, Cr down 2.74 from 3.16. Afebrile. 06/13 No events overnight. Sedated with Diprivan, Fentanyl and on Precedex. Placed on labetalol yesterday 9mg. Afebrile. 06/14 No events overnight. Remains sedated and intubated, labetalol drip 5mg. Cr : 2.80. FOr transfusions 1unit PRBC fot Hgb 6.7 this morning. 06/15: Sedated, orally intubated on mechanical ventilation. Objective Vital Signs Date Time Temp Pulse Resp B/P (MAP) Pulse Ox O2 Delivery O2 Flow Rate FiO2 06/15/17 11:36 95 50 06/15/17 08:00 97.6 57 0 112/61 Intake and Output 06/15/17 06/15/17 06/16/17 08:00 16:00 00:00 Intake Total 2567 ml Output Total 1600 ml Balance 967 ml Result Diagram: 06/15/17 0400 06/15/17 0400 Other Results Microbiology Date/Time Source Procedure Growth Status 06/13/17 07:55 Stool Stool Stool Occult Blood (EILEEN) - Final HEMOCCULT POSITIVE Complete Laboratory Tests Test 06/14/17 14:14 Blood Gas Puncture Site LT RADIAL Blood Gas Patient Temperature 98.6 Blood Gas HCO3 22 mmol/L (22-26) Blood Gas Base Excess -3.0 mmol/L (-2-2) Blood Gas Oxygen Saturation 87 % (90-100) Arterial Blood pH 7.31 (7.380-7.420) Arterial Blood Partial Pressure CO2 46 mmHg (38-42) Arterial Blood Partial Pressure O2 62 mmHg (61-120) Arterial Blood Oxygen Content 11.7 Vol % (12.0-20.0) Arterial Blood Carboxyhemoglobin 1.6 % (0-4) Arterial Blood Methemoglobin 1.2 % (0-2) Blood Gas Hemoglobin 9.5 G/DL (12.0-16.0) Oxygen Delivery Device VENTILATOR Blood Gas Ventilator Setting Blood Gas Inspired Oxygen 35 % Imaging Last Impressions Chest X-Ray 06/13/17 0000 Signed Impressions: Service Date/Time: Tuesday, June 13, 2017 09:52 - CONCLUSION: 1. Midinspiratory exam. The endotracheal tube tip is at the level of the julee. 2. Apparent increase in hazy opacity in both lungs which may represent pulmonary edema or be artifactual secondary to the Midinspiratory study. Marvin Rivas MD Abdomen X-Ray 06/02/17 0000 Signed Impressions: Service Date/Time: May 10:18 - CONCLUSION: NG tip in stomach. Left basilar airspace disease. Elevated right hemidiaphragm. Bowel gas pattern demonstrates mild ileus Tc Varghese MD Liver Ultrasound 05/31/17 1434 Signed Impressions: Service Date/Time: Wednesday, May 31, 2017 14:40 - CONCLUSION: 1. Interval apparent hepatomegaly with diffusely increased hepatic echogenicity. Given the acuity of findings, findings may reflect acute hepatitis or congestive hepatopathy. 2. Persistently contracted gallbladder which accentuates the gallbladder wall with persistent gallbladder wall thickening and trace pericholecystic fluid. These findings are commonly seen in the setting of liver disease although differential considerations include acalculous cholecystitis. HIDA scan may be performed for better evaluation as clinically appropriate. 3. Andrew Kraft MD Lung Scan-VQ Nuclear Medicine 05/23/17 Signed Impressions: Service Date/Time: Tuesday, May 23, 2017 10:22 - CONCLUSION: Low probability of pulmonary embolism. Buddy Harrison MD FACR Lower Extremity Ultrasound 05/23/17 Signed Impressions: Service Date/Time: Tuesday, May 23, 2017 08:02 - CONCLUSION: Negative for deep venous thrombosis. Buddy Harrison MD FACR Head CT 05/23/17 Signed Impressions: Service Date/Time: Tuesday, May 23, 2017 03:56 - CONCLUSION: 1. Examination quality is degraded by motion artifact. 2. No definite acute finding is identified. There is a 3 mm punctate area of high density in the left frontal periventricular white matter. This could represent small focus of acute blood products. Suggest attention to this on followup imaging. Wiliam Buck MD Brain MRI 05/23/17 Signed Impressions: Service Date/Time: Tuesday, May 23, 2017 15:59 - CONCLUSION: 1. 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 2. No hemorrhage observe. 3. Pansinus disease. Rudy Cervantes Jr., MD Aorta CTA 05/23/17 Signed Impressions: Service Date/Time: Tuesday, May 23, 2017 03:58 - CONCLUSION: 1. 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 The dissection extends to the abdominal aorta and terminates in the common iliac arteries bilaterally. The abdominal vessels arise from both the true and false lumens and demonstrate good opacification. Suggest correlating with the patient's prior imaging study which documents the dissection. 2. 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 3. There is stranding of the periaortic fat adjacent to the arch aneurysm. 4. There are small bilateral pleural effusions, left larger than right, with bilateral volume loss and/or airspace consolidation bilaterally. Wiliam Buck MD Abdomen Ultrasound 05/23/17 0000 Signed Impressions: Service Date/Time: Tuesday, May 23, 2017 17:22 - CONCLUSION: 1. Gall bladder wall thickening and possible pericholecystic fluid without evidence of gallstones. May consider perform hepatic biliary tract scan to evaluate for acalculous cholecystitis. 2. No focal abnormality seen within the liver. Rudy Pollock MD Objective Remarks GENERAL: This is a 36-year-old well-developed well-nourished AA male resting in bed orotracheally intubated, and sedated SKIN: Warm and dry, adequately perfused. HEAD: Normocephalic. EYES: Pupils 3 mm and reactive. No scleral icterus. No injection or drainage. NECK: Supple, trachea midline. No JVD or lymphadenopathy. Left IJ CVL is clean dry and intact CARDIOVASCULAR: Distant. RRR. S1, S2 no S4. Cannot appreciate murmurs, clicks , gallops or rubs RESPIRATORY: Coarse rhonchorous crackles noted throughout all lung [place] anterior-posterior bilaterally. No wheezing GASTROINTESTINAL: Abdomen soft, non-tender, nondistended. Hypoactive bowel sounds are appreciated MUSCULOSKELETAL: No cyanosis. Edema 2+ bilateral upper and lower extremities NEURO: Currently sedated on Versed, propofol and fentanyl drips. Positive gag and corneal reflex. Positive cough. 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 On Fentanyl, Propofol, Precedex drip infusion for sedation and to maintain ventilator synchrony. Goal of RASS -2 Daily sedation vacation Acetaminophen 650 mg by tube every 6 hours as needed fever discontinued due to elevated transaminases Evaluated by neurology/Dr. Espinosa MRI brain 05/23 revealed bilateral frontal embolic CVA CT brain: There is a 3 mm punctate area of high density in the left frontal periventricular white matter. This could represent small focus of acute blood products. EEG : Mild diffuse encephalopathy, no seizure activity Continue aspirin 162 mg p.o. daily. Okayed with neurology. CV: Hypertensive emergency Acute type B aortic dissection Elevated troponin PEA cardiac arrest 05/23/17, secondary to obstructive sleep apnea/obesity hypoventilation syndrome with Bipap nonadherence. CTA stable. VQ scan negative . Hyperlipidemia Monitor HR and BP keep MAP>65mmHg Wean off Labetalol drip Currently on carvedilol 25 mg twice daily Diltiazem 90 mg every 6 hours Clonidine 0.3 mg every 8 hours Repeat echo 05/23: EF 60-65%, no RWMA Evaluated by cardiology, Dr. Bhakta on 05/24 due to troponin elevation. He attributed elevated troponin to PEA arrest, hypoxia, renal insufficiency. No further ischemic workup planned at this time. 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 The dissection extends to the abdominal aorta and terminates in the common iliac arteries bilaterally. The abdominal vessels arise from both the true and false lumens and demonstrate good opacification. Vascular surgery is following- Dr. Guzman Pulm: Obstructive sleep apnea Obesity hypoventilation syndrome Acute hypercapnic respiratory failure intubated 05/30 Ventilator dependent respiratory failure PRVC RR 16, TV 500, IT:1.0, PEEP:8, FIO2: 50%, Ventilator bundle Bronchodilators, DuoNeb Q4, Mucomyst nebs Solumedrol 40mg IV daily Check ABG V/Q scan: low prob PE s/p bronch today showed mucous plugs/ thick secretions b/l, normal mucosa, no evidence of EBL, BAL performed RUL. Status post bronchoscopy 05/30 revealed no mucus plugging. Normal bronchial mucosa without lesions. No signs of bleeding. LEN negative Renal/: Nonoliguric acute kidney injury Rhabdo Electrolyte derangement Likely secondary to ischemic ATN following cardiac arrest. Cr: 2.80 today, UOP: 3400ml in 24 hrs Renal is following- Dr. Flannery abdomen: No hydronephrosis. On free water 250ml Q8, monitor sodium level. Diurese with Lasix 40mg x1 GI: Elevated transaminases Hypoalbuminemia Hyperammonia Continue Nepro @ 55ml/hr-no residuals Famotidine 10 mg BID for GI prophylaxis Docusate/senna 1 tablet twice daily, polyethylene glycol 17 g twice daily and lactulose 30 cc twice daily for bowel regimen. Monitor LFT's (trending down),Hep profile is negative Abdominal ultrasound 05/31 -market hepatic congestion. Contracted gallbladder with pericholecystic fluid. Possible acalculous cholecystitis recommend HIDA scan if clinically able. US abdomen: Gall bladder wall thickening and possible pericholecystic fluid without evidence of gallstones. Recommend HIDA scan if clinically indicated Lactulose 30 cc 4 times daily. GI following Heme: Persistent Leukocytosis Microcytic anemia Monitor CBC, for transfusion 1u PRBC today for Hgb 7.7 VQ scan negative 05/23 BLE u/s negative for DVT 05/23 ID: MSSA pneumonia Abx per ID ( On Cefepime) Monitor for signs of infections ( Fever, WBC) ID is following- , follow up on sputum and urine cxs Pertinent: C-diff PCR negative on 06/04 and 06/09 06/08 -sputum -normal resp lizzie 05/31/13 -blood cultures 2 -pending 05/30 -bronchoscopy -no growth 05/30 -sputum -rare WBC/budding yeast 05/30 -blood cultures 2 -pending 05/25 -blood cultures 2 -no growth to date 05/25 -urine culture -no growth to date 05/23 -sputum -MSSA 05/23 -blood cultures 2 -no growth to date Endo: SSI ( medium scale) NovUlin R medium regimen every 6 hours sliding scale. Levemir 7u Q12 TSH 2.3 PROPH: SCDs hold /Heparin subcut for anemia requiring blood transfusion and Hemoccult positive ACCESS Left IJ CVL placed 05/31 Condition remains critical Time spent on critical care excluding procedures 30 minutes Paul Arango MD Jun 15, 2017 12:41
--- NOTE | 2017-06-15 14:35 | HHI.NPPN ---
Subjective History of Present Illness 36 year old with Aortic dissection ARF Additional Remarks Patient remains intubated Objective Data Data Vital Signs Date Time Temp Pulse Resp B/P (MAP) Pulse Ox O2 Delivery O2 Flow Rate FiO2 06/15/17 12:00 98.3 62 21 108/56 (73) 94 06/15/17 12:00 45 06/15/17 11:36 95 50 06/15/17 08:27 93 45 06/15/17 08:00 97.6 57 0 112/61 94 06/15/17 08:00 45 06/15/17 06:00 62 06/15/17 04:24 97 45 06/15/17 04:00 98.1 66 133/63 (86) 94 06/15/17 04:00 45 06/15/17 04:00 66 06/15/17 02:00 62 06/15/17 01:02 97 45 06/15/17 00:00 45 06/15/17 00:00 98.8 63 24 132/67 (88) 96 06/15/17 00:00 63 06/14/17 22:00 63 06/14/17 21:56 96 45 06/14/17 20:00 45 06/14/17 20:00 97.5 62 24 136/65 (88) 95 06/14/17 20:00 62 06/14/17 18:00 66 06/14/17 16:45 65 0 138/65 (89) 95 06/14/17 16:30 66 0 135/63 (87) 95 06/14/17 16:15 66 0 138/64 (88) 95 06/14/17 16:00 66 06/14/17 16:00 98.0 66 0 136/63 (87) 95 06/14/17 16:00 45 06/14/17 15:49 95 45 06/14/17 15:45 66 0 135/63 (87) 95 06/14/17 15:30 65 0 134/62 (86) 96 06/14/17 15:15 66 0 134/58 (83) 96 06/14/17 15:00 68 0 134/63 (86) 96 06/14/17 14:45 68 0 135/63 (87) 96 -: 06/15/17 0400 06/15/17 0400 Physical Exam General Appearance: Well Developed Eyes Eye Exam: Pupils Equal Neck Neck Exam: Neck Supple Pulmonary Resp Exam: Clear Bilaterally Cardiology CV Exam: Regular, Normal Sinus Rhythm Gastrointestinal/Abdomen GI Exam: Soft, Non-Tender Genitourinary Exam: Clear Urine Integumentary Skin Exam: Intact Extremeties Extremities Exam: Moderate Edema, Pitting Edema, Dependent Edema Assessment/Plan Problem List: (1) Acute renal failure ICD Codes: N17.9 - Acute kidney failure, unspecified Plan: He has large dissection of aorta continue to monitor he is passing urine , creatinine he did receive IV contrast repeat CTA Dissection up to Common Iliac arteries seen with true and false lumen perfused Cr 5.6-> 5.7 -> 5.7 -> 5.3 -> 5 -> 4.4-. 3.9-> 3.5 ->3.16-> 2.74 -> 2.8->2.8 non oliguric, off all diuretics off IVF water 250 ml q 8 Sodium 148 PRBC/Lasix given UOP 3.4 L BUN decreased slightly K normal remains intubated Patient has good urine out. (2) Dissection of aorta, thoracoabdominal ICD Codes: I71.03 - Dissection of thoracoabdominal aorta Status: Acute Plan: vascular is following Renal arteries remains perfused Roz Flannery MD Jun 15, 2017 14:35
[2017-06-16] VITALS (18 sets, daily range): BP systolic 112–126; BP diastolic 58–65; PULSE 62–72; RESP 0–24; TEMP 97.2–98.7; O2SAT 94–100
[2017-06-16] MEDS: NS IV PRN ×14 (01:07→23:35)
[2017-06-16] MEDS: LABETALOL IV PRN ×14 (01:07→23:35)
[2017-06-16] MEDS: hydrALAZINE HCL 50 MG TAB OG-TUBE SCH ×4 (01:11→20:14)
[2017-06-16] MEDS: PROPOFOL 1000 MG/100 ML INJ 100 ML IV PRN ×8 (01:11→22:59)
[2017-06-16] MEDS: fentaNYL DRIP 250 ML IV PRN ×3 (01:13→20:15)
[2017-06-16] MEDS: CHLORHEXIDINE GLUCONATE 2 % 1 PACK (2 CLOTHS) TOP SCH (04:00)
[2017-06-16] MEDS: ARTIFICIAL TEARS OPTH SOLN 15 ML BTL EACH EYE SCH ×3 (05:17→20:15)
[2017-06-16] MEDS: MEROPENEM INJ 1,000 MG in SODIUM CHLORIDE 0.9% INJ 100 ML IV SCH ×2 (05:17→16:31)
[2017-06-16] MEDS: FREE WATER G-TUBE SCH ×3 (05:17→20:15)
[2017-06-16] MEDS: DILTIAZEM HCL 90 MG TAB PO SCH ×4 (05:17→23:49)
[2017-06-16] MEDS: cloNIDine HCL 0.3 MG TAB PO SCH ×3 (05:17→20:14)
[2017-06-16] MEDS: INSULIN NovoLIN REGULAR SUPPLEMENTAL SCALE SQ SCH ×4 (05:18→23:49)
[2017-06-16] MEDS: DEXMEDETOMIDINE INJ 1,000 MCG in SODIUM CHLOR 0.9% 250 ML INJ 240 ML IV PRN ×3 (05:21→20:58)
[2017-06-16] MEDS: CHLORHEXIDINE 0.12% (ORAL KIT) 15 ML CUP MT SCH ×2 (08:00→20:00)
[2017-06-16] MEDS: methylPREDNISolone SOD SUCC 40 MG/1 ML VIAL IV PUSH SCH (08:27)
[2017-06-16] MEDS: CARVEDILOL 12.5 MG TAB PO SCH ×2 (08:28→20:14)
[2017-06-16] MEDS: INSULIN DETEMIR 100 UNITS/ML VIAL SQ SCH ×2 (08:28→20:14)
[2017-06-16] MEDS: SODIUM CHLORIDE 0.9% FLUSH 10 ML FLUSH IV FLUSH SCH (08:28)
[2017-06-16] MEDS: ASPIRIN 81 MG CHEW TAB CHEW SCH (08:28)
[2017-06-16] MEDS: FAMOTIDINE 20 MG TAB PO SCH ×2 (08:28→20:14)
[2017-06-16] MEDS: RESP: ALBUTEROL 2.5 MG/3 ML NEB (PRN) NEB (09:38)
--- NOTE | 2017-06-16 10:59 | HHI.CCPN ---
Subjective Remarks/Hospital Course 05/19: Is a 36-year-old male with a history of hypertension who is on vacation from the [place] area who did not take his antihypertensives today because he is on vacation, and was having sexual intercourse when he had sudden onset of severe substernal radiating to the back chest pain earlier today. 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 He was emergently transferred to [facility] for further management. I evaluated the patient on arrival to the ICU by EVAC. Patient denies abdominal pain. Still endorses chest pain although this is improving. Patient denies any other symptoms. CT chest abdomen pelvis was reviewed and reviewed with myself and Dr. Guzman and does demonstrate a type B dissection. 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 Initial laboratory evidence demonstrates a lactate of 1.3, creatinine 1.2, normal LFTs. 05/20: On home C Pap. Urine output 30 cc/h currently. Remains on esmolol and labetalol drips. Remains drowsy though arousable. +4.4 L 05/21: Resting comfortably on nasal cannula. Awake and alert currently. Denies any shortness of breath or chest pain currently. 05/22: AAO x3, resting comfortably. 05/23 Patient went into PEA arrest early this morning now sedated with Diprivan and intubated. Off Esmolol drip. 05/24 Patient is sedated with Diprivan and intubated. On Labetolol drip. MRI brain yesterday showed multiple small infracts, no hemorrhage. 05/25 Patient remains intubated and sedated. T: 100.5 last night. Renal function is worsening with Cr: 3.6 from 3.4 and UOP: 2650ml in 24 hrs. 05/26 No events overnight. Sedated and intubated. Afebrile. Cr: 3.62 , UOP: 1950ml in 24 hrs 05/27 Patient was extubated yesterday placed on BIPAP overnight. Cr: 3.42 today , UOP: 1800 ml in 24 hrs 05/28 Extubated yesterday and per report was compliant with Bipap overnight Remains on esmolol drip 200 mcg/kg/min and SBP in 140s. ZULY, probable ATN non- oliguric however I>>0 with significant intake from MIVF as well as 180 mL/hr from esmolol drip. IVF d/c per nephrology and transitioning off esmolol to minimize fluid. Hugo now per my discussion with Dr. Thornton. He is tachypneic, obtained ABG with hypercapnea on simple mask. Placing On Bipap. at bedside requesting eventual transfer to [place], though she realized he is not stable for that yet. 05/29: Remains on BiPAP since 299 with increasing respiratory rates. Will attempt a more aggressive diuresis. We started on esmolol drip due to persistent tachycardia and unable to reach target blood pressure and heart rate requirements. At high risk for reintubation. 05/30: Remained hypotensive overnight. This a.m. desaturated, tachypneic requiring high percent on BiPAP hence intubated by bi lead. Will require bronchoscopy this afternoon. Continue with aggressive diuresis. Broad antibiotic coverage. Start tube feeding. The systolic blood pressure better controlled while intubated on propofol and fentanyl drips. 05/31: T-max 102.8. Currently 99.6. FiO2 down to 80%. The same noted elevated transaminases AST of 2674. ALT of 1590. Creatinine is increased to 3.07 to 4.36. +2 L past 24 hours. One bowel movement. Noted prior gallbladder wall thickening on previous ultrasound. We will repeat today Subjective 06/01: T-max 102.5. Currently 98.9. Desaturate overnight resolved currently FiO2 of 80%. 4500 cc urine output. Creatinine continues to rise currently 4.9. CPK currently 6165. We will discontinue propofol with hepatomegaly, rhabdomyolysis possibly indicative propofol infusion syndrome. 06/02 Patient remains intubated and sedated. On Fentanyl, Versed and Nimbex. T: 100.0 at midnight. On PC/AC with PEEP:15, FIO2 50% Renal function continue to decline with Cr: 5.40 from 4.91 and UOP: 2895 ml in 24 hrs 06/03 Patient remains intubated and sedated with Versed, Fentanyl drips. Remains on Nimbex and Flolan. Cr: 5.6 from 5.4 with UOP: 3790 ml in 24 hrs. 06/04:Afebrile. Overnight the patient had an episode of hypotension during the and all sedation was briefly discontinued, then resumed for ventilator synchrony. Clonidine dosage decreased. Patient continues on pressure control mode, and Flolan for adequate oxygenation. Creatinine noted to be 5.7 weight urine output 3220cc/24 hrs. 06/05: Afebrile. This x-ray revealed improving area aeration of the right hemithorax. PEEP decreased this a.m. to 12, patient continues on FiO2 55% and Flolan, planned weaning. Electrolytes currently being replaced. Elevated liver enzymes continue to down trend. 06/06: Respiratory requirements decreasing, patient now on Flolan 10 ng/kg/min with FiO2 at 60%, maintaining O2 saturation 92%. Creatinine continues to down trend. Leukocytosis improving. 06/07: Flolan discontinued, FIO2 65%. Propofol added to maintain ventilator synchrony. Patient currently on 10 mg of Versed and 250 mics of fentanyl. Wound care was consulted for skin breakdown on buttocks secondary to multiple bowel movements, patient continues on Avani bed. 06/08: No acute events overnight. Flolan discontinued greater than 18 hours patient's O2 saturation 97% on FiO2 of 65. FiO2 requirements decreased the patient continues on a PEEP of 12. Free water flushes added to medication regimen secondary to hypernatremia, sodium level 156 today. 06/09 Patient remains sedated and intubated. Afebrile. 06/10 Patient is sedated with Versed, Diprivan and Fentanyl drips, intubated. Afebrile. renal function is improving with Cr: 3.52 from 3.94 06/11 No events overnight. Sedated with Diprivan and Fentanyl drips. Off Versed. renal function continue to improve with Cr:3.16 from 3.52. 06/12 Patient remains intubated placed on CPAP with PS 12, PEEP:5 and FIO2 40%, Cr down 2.74 from 3.16. Afebrile. 06/13 No events overnight. Sedated with Diprivan, Fentanyl and on Precedex. Placed on labetalol yesterday 9mg. Afebrile. 06/14 No events overnight. Remains sedated and intubated, labetalol drip 5mg. Cr : 2.80. FOr transfusions 1unit PRBC fot Hgb 6.7 this morning. 06/15: Sedated, orally intubated on mechanical ventilation. 06/16: Remains sedated, orally intubated on mechanical ventilation. PEEP +8 FiO2 40%. Consulted GI and general surgery for PEG and tracheostomy. Objective Vital Signs Date Time Temp Pulse Resp B/P (MAP) Pulse Ox O2 Delivery O2 Flow Rate FiO2 06/16/17 09:35 97 40 06/16/17 08:00 97.2 64 112/59 (76) 06/15/17 20:00 24 Intake and Output 06/16/17 06/16/17 06/17/17 08:00 16:00 00:00 Intake Total 1728 ml Output Total 450 ml Balance 1278 ml Result Diagram: 06/15/17 0400 06/15/17 0400 Other Results Microbiology Date/Time Source Procedure Growth Status 06/13/17 11:50 Sputum Endotracheal Gram Stain - Final Complete 06/13/17 11:50 Sputum Culture - Final Pseudomonas Aeruginosa Complete 06/13/17 13:40 Urine Catheterized Urine Urine Culture - Final Ruth Albicans Complete Imaging Last Impressions Chest X-Ray 06/13/17 0000 Signed Impressions: Service Date/Time: Tuesday, June 13, 2017 09:52 - CONCLUSION: 1. Midinspiratory exam. The endotracheal tube tip is at the level of the julee. 2. Apparent increase in hazy opacity in both lungs which may represent pulmonary edema or be artifactual secondary to the Midinspiratory study. Marvin Rivas MD Abdomen X-Ray 06/02/17 0000 Signed Impressions: Service Date/Time: May 10:18 - CONCLUSION: NG tip in stomach. Left basilar airspace disease. Elevated right hemidiaphragm. Bowel gas pattern demonstrates mild ileus Tc Varghese MD Liver Ultrasound 05/31/17 1434 Signed Impressions: Service Date/Time: Wednesday, May 31, 2017 14:40 - CONCLUSION: 1. Interval apparent hepatomegaly with diffusely increased hepatic echogenicity. Given the acuity of findings, findings may reflect acute hepatitis or congestive hepatopathy. 2. Persistently contracted gallbladder which accentuates the gallbladder wall with persistent gallbladder wall thickening and trace pericholecystic fluid. These findings are commonly seen in the setting of liver disease although differential considerations include acalculous cholecystitis. HIDA scan may be performed for better evaluation as clinically appropriate. 3. Andrew Kraft MD Lung Scan-VQ Nuclear Medicine 05/23/17 Signed Impressions: Service Date/Time: Tuesday, May 23, 2017 10:22 - CONCLUSION: Low probability of pulmonary embolism. Buddy Harrison MD FACR Lower Extremity Ultrasound 05/23/17 0000 Signed Impressions: Service Date/Time: Tuesday, May 23, 2017 08:02 - CONCLUSION: Negative for deep venous thrombosis. Buddy Harrison MD FACR Head CT 05/23/17 Signed Impressions: Service Date/Time: Tuesday, May 23, 2017 03:56 - CONCLUSION: 1. Examination quality is degraded by motion artifact. 2. No definite acute finding is identified. There is a 3 mm punctate area of high density in the left frontal periventricular white matter. This could represent small focus of acute blood products. Suggest attention to this on followup imaging. Wiliam Buck MD Brain MRI 05/23/17 Signed Impressions: Service Date/Time: Tuesday, May 23, 2017 15:59 - CONCLUSION: 1. 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 2. No hemorrhage observe. 3. Pansinus disease. Rudy Cervantes Jr., MD Aorta CTA 05/23/17 Signed Impressions: Service Date/Time: Tuesday, May 23, 2017 03:58 - CONCLUSION: 1. 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 The dissection extends to the abdominal aorta and terminates in the common iliac arteries bilaterally. The abdominal vessels arise from both the true and false lumens and demonstrate good opacification. Suggest correlating with the patient's prior imaging study which documents the dissection. 2. 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 3. There is stranding of the periaortic fat adjacent to the arch aneurysm. 4. There are small bilateral pleural effusions, left larger than right, with bilateral volume loss and/or airspace consolidation bilaterally. Wiliam Buck MD Abdomen Ultrasound 05/23/17 Signed Impressions: Service Date/Time: Tuesday, May 23, 2017 17:22 - CONCLUSION: 1. Gall bladder wall thickening and possible pericholecystic fluid without evidence of gallstones. May consider perform hepatic biliary tract scan to evaluate for acalculous cholecystitis. 2. No focal abnormality seen within the liver. Rudy Pollock MD Objective Remarks GENERAL: This is a 36-year-old well-developed well-nourished AA male resting in bed orotracheally intubated, and sedated SKIN: Warm and dry, adequately perfused. HEAD: Normocephalic. EYES: Pupils 3 mm and reactive. No scleral icterus. No injection or drainage. NECK: Supple, trachea midline. No JVD or lymphadenopathy. Left IJ CVL is clean dry and intact CARDIOVASCULAR: Distant. RRR. S1, S2 no S4. Cannot appreciate murmurs, clicks , gallops or rubs RESPIRATORY: Coarse rhonchorous crackles noted throughout all lung [place] anterior-posterior bilaterally. No wheezing GASTROINTESTINAL: Abdomen soft, non-tender, nondistended. Hypoactive bowel sounds are appreciated MUSCULOSKELETAL: No cyanosis. Edema 2+ bilateral upper and lower extremities NEURO: Currently sedated on Versed, propofol and fentanyl drips. Positive gag and corneal reflex. Positive cough. 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 On Fentanyl, Propofol, Precedex drip infusion for sedation and to maintain ventilator synchrony. Goal of RASS -2 Daily sedation vacation Acetaminophen 650 mg by tube every 6 hours as needed fever discontinued due to elevated transaminases Evaluated by neurology/Dr. Espinosa MRI brain 05/23 revealed bilateral frontal embolic CVA CT brain: There is a 3 mm punctate area of high density in the left frontal periventricular white matter. This could represent small focus of acute blood products. EEG : Mild diffuse encephalopathy, no seizure activity Continue aspirin 162 mg p.o. daily. Okayed with neurology. CV: Hypertensive emergency Acute type B aortic dissection Elevated troponin PEA cardiac arrest 05/23/17, secondary to obstructive sleep apnea/obesity hypoventilation syndrome with Bipap nonadherence. CTA stable. VQ scan negative . Hyperlipidemia Monitor HR and BP keep MAP>65mmHg Wean off Labetalol drip Currently on carvedilol 25 mg twice daily Diltiazem 90 mg every 6 hours Clonidine 0.3 mg every 8 hours Repeat echo 05/23: EF 60-65%, no RWMA Evaluated by cardiology, Dr. Bhakta on 05/24 due to troponin elevation. He attributed elevated troponin to PEA arrest, hypoxia, renal insufficiency. No further ischemic workup planned at this time. 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 The dissection extends to the abdominal aorta and terminates in the common iliac arteries bilaterally. The abdominal vessels arise from both the true and false lumens and demonstrate good opacification. Vascular surgery is following- Dr. Guzman Puljak: Obstructive sleep apnea Obesity hypoventilation syndrome Acute hypercapnic respiratory failure intubated 05/30 Ventilator dependent respiratory failure PRVC RR 16, TV 500, IT:1.0, PEEP:8, FIO2: 40%, Ventilator bundle Bronchodilators, DuoNeb Q4, Mucomyst nebs Solumedrol 40mg IV daily Check ABG V/Q scan: low prob PE s/p bronch showed mucous plugs/ thick secretions b/l, normal mucosa, no evidence of EBL, BAL performed RUL. Status post bronchoscopy 05/30 revealed no mucus plugging. Normal bronchial mucosa without lesions. No signs of bleeding. LEN negative Consulted general surgery for tracheostomy Renal/: Nonoliguric acute kidney injury Rhabdo Electrolyte derangement Likely secondary to ischemic ATN following cardiac arrest. Strict intake output, monitor and replete electrolytes, follow BUN/creatinine Renal is following- Dr. Flannery US abdomen: No hydronephrosis. On free water 250ml Q8, monitor sodium level. GI: Elevated transaminases Hypoalbuminemia Hyperammonia Continue Nepro @ 55ml/hr-no residuals Famotidine 10 mg BID for GI prophylaxis Docusate/senna 1 tablet twice daily, polyethylene glycol 17 g twice daily and lactulose 30 cc twice daily for bowel regimen. Monitor LFT's (trending down),Hep profile is negative Abdominal ultrasound 05/31 -market hepatic congestion. Contracted gallbladder with pericholecystic fluid. Possible acalculous cholecystitis recommend HIDA scan if clinically able. US abdomen: Gall bladder wall thickening and possible pericholecystic fluid without evidence of gallstones. Recommend HIDA scan if clinically indicated Lactulose 30 cc 4 times daily. GI following Heme: Persistent Leukocytosis Microcytic anemia Monitor CBC, for transfusion 1u PRBC today for Hgb 7.7 VQ scan negative 05/23 BLE u/s negative for DVT 05/23 ID: MSSA pneumonia Abx per ID ( On Cefepime) Monitor for signs of infections ( Fever, WBC) ID is following- , follow up on sputum and urine cxs Pertinent: C-diff PCR negative on 06/04 and 06/09 06/08 -sputum -normal resp lizzie 05/31/ -blood cultures 2 -pending 05/30 -bronchoscopy -no growth 05/30 -sputum -rare WBC/budding yeast 05/30 -blood cultures 2 -pending 05/25 -blood cultures 2 -no growth to date 05/25 -urine culture -no growth to date 05/23 -sputum -MSSA 05/23 -blood cultures 2 -no growth to date Endo: SSI ( medium scale) NovUlin R medium regimen every 6 hours sliding scale. Levemir 7u Q12 TSH 2.3 PROPH: SCDs hold /Heparin subcut for anemia requiring blood transfusion and Hemoccult positive ACCESS Left IJ CVL placed 05/31 Discussed with patient's by phone. I explained need for tracheostomy and PEG tube and she voiced understanding and was agreeable. Consulted GI and general surgery for PEG and tracheostomy. Condition remains critical Time spent on critical care excluding procedures 30 minutes Paul Arango MD Jun 16, 2017 10:59
--- NOTE | 2017-06-16 11:01 | PD.CONS ---
cc: Tc Muhammad MD [facility] Service CONSULTATION NOTE FOR SURGICAL ATTENDING, DR. TC MUHAMMAD General Surgery Consult Requested By Dr. Arango Reason for Consult Tracheostomy tube placement for [facility] Primary Care Physician Unknown History of Present Illness This is a 36 year old male with a past medical history of hypertension who is here on vacation and by report was not taking his anti-hypertensive. Per reports, the patient developed severe onset of substernal chest pain. He was originally at an outside hospital and was found to an acute type B dissection. He has been evaluated by Dr. Guzman and is being medically treated by maintaining a controlled blood pressure. The patient did go have a PEA arrest on May 23 and was intubated. He was successfully extubated but failed extubation and was re-intubated. He does have severe sleep apnea but refused to wear the BiPAP. A General Surgery consultation has been requested for tracheostomy tube placement. Review of Systems ROS Limitations: Clinical Condition, Intubated Past Family Social History Past Medical History Hypertension CORI Past Surgical History Inguinal hernia repair Reported Medications Anti-hypertensive Allergies: Coded Allergies: No Known Allergies (Unverified , 05/19/17) Active Ordered Medications Current Medications Medications (Trade) Dose Ordered Sig/Melissa Route Start Time Stop Time Status Last Admin (Senokot) 17.2 mg Q12H PRN PO 05/19/17 19:30 (Dulcolax Supp) 10 mg DAILY PRN RECTAL 05/19/17 19:30 (Lopressor Inj) 5 mg Q1H PRN IV PUSH 05/19/17 20:30 06/12/17 17:03 (Zofran Inj) 4 mg Q6H PRN IV PUSH 05/19/17 20:30 Miscellaneous Information 1 Q361D XX 05/19/17 20:30 05/19/17 20:30 (Chlorhexidine 2% Cloth) Taper DAILY@04 TOP 05/20/17 04:00 05/16/18 03:59 06/13/17 04:00 (Chlorhexidine 2% Cloth) 3 pack UNSCH PRN TOP 05/19/17 20:30 (Albuterol Neb) 2.5 mg Q2HR NEB PRN NEB 05/28/17 17:15 06/15/17 21:58 (Aspirin Chew) 162 mg DAILY CHEW 05/29/17 09:00 06/16/17 08:28 (Coreg) 25 mg Q12HR PO 05/29/17 10:00 06/16/17 08:28 (Cardizem) 90 mg Q6HR PO 05/29/17 12:00 06/16/17 05:17 (Tears Naturale Opth Soln) 1 drop Q8HR EACH EYE 05/29/17 22:00 06/16/17 05:17 (Peridex 0.12% Liq) 15 ml BID@08,20 MT 05/30/17 20:00 06/16/17 08:00 (Pill Splitter) 1 ea UNSCH PRN OTHER 05/30/17 10:30 (D50w (Vial) Inj) 50 ml UNSCH PRN IV PUSH 05/30/17 11:00 (Glucagon Inj) 1 mg UNSCH PRN OTHER 05/30/17 11:00 (NovoLIN R SUPPLEMENTAL SCALE) 1 Q6HR SQ 05/30/17 12:00 06/16/17 05:18 (Heparin Inj) 5,000 units BID SQ 05/31/17 21:00 Future Hold 06/13/17 20:23 (NS Flush) DAILY IV FLUSH 05/31/17 09:00 06/16/17 08:28 (NS Flush) UNSCH PRN IV FLUSH 05/31/17 08:45 Fentanyl Citrate 250 ml @ 5 mls/hr TITRATE PRN IV 05/31/17 18:30 06/16/17 01:13 (Trandate Inj) 10 mg Q4H PRN IV PUSH 06/04/17 00:45 06/14/17 17:33 (Apresoline Inj) 20 mg Q4H PRN IV PUSH 06/04/17 00:45 06/12/17 18:20 Propofol 100 ml @ 0 mls/hr TITRATE PRN IV 06/07/17 17:45 06/16/17 10:20 Dexmedetomidine HCl 1000 mcg/ Sodium Chloride 250 ml @ 7 mls/hr TITRATE PRN IV 06/11/17 20:00 06/16/17 05:21 Labetalol HCl 500 mg/Sodium Chloride 250 ml @ 60 mls/hr TITRATE PRN IV 06/12/17 15:15 06/16/17 05:17 (Catapres) 0.3 mg Q8HR PO 06/12/17 22:00 06/16/17 05:17 (Free Water) 250 ml Q8HR G-TUBE 06/13/17 14:00 06/16/17 05:17 (SoluMEDROL INJ) 40 mg DAILY IV PUSH 06/14/17 09:00 06/16/17 08:27 (Pepcid) 10 mg BID PO 06/13/17 21:00 06/16/17 08:28 (Levemir Inj) 7 units Q12HR SQ 06/13/17 14:45 06/16/17 08:28 (Apresoline) 50 mg Q6H OG-TUBE 06/13/17 20:00 06/16/17 08:28 Meropenem 1000 mg/ Sodium Chloride 100 ml @ 200 mls/hr Q12H IV 06/14/17 18:00 06/16/17 05:17 Family History None contributory Social History Per EMR Denies tobacco use Occasional ETOH use Denies illicit drug use Lives in [place]. He is and has 6 children. Physical Exam Vital Signs Vital Signs Date Time Temp Pulse Resp B/P (MAP) Pulse Ox O2 Delivery O2 Flow Rate FiO2 06/16/17 09:35 97 40 06/16/17 08:00 40 06/16/17 08:00 97.2 64 112/59 (76) 94 06/16/17 06:00 72 06/16/17 04:44 99 40 06/16/17 04:00 40 06/16/17 04:00 63 06/16/17 04:00 98.1 63 126/64 (84) 98 06/16/17 02:00 64 06/16/17 00:51 98 40 06/16/17 00:00 50 06/16/17 00:00 98.0 62 112/58 (76) 98 06/16/17 00:00 62 06/15/17 22:00 97 50 06/15/17 22:00 61 06/15/17 20:00 97.5 65 24 106/65 (79) 99 06/15/17 20:00 50 06/15/17 20:00 65 06/15/17 16:00 45 06/15/17 16:00 97.5 56 0 105/58 (74) 94 06/15/17 12:00 98.3 62 21 108/56 (73) 94 06/15/17 12:00 45 06/15/17 11:36 95 50 Physical Exam GENERAL: 36 year old male resting in bed on mechanical ventilation SKIN: Warm and dry. HEAD: Atraumatic. Normocephalic. EYES: Pupils equal and round. No scleral icterus. No injection or drainage. ENT: No nasal bleeding or discharge. Mucous membranes pink and moist. NECK: Trachea midline; palpable when head and neck placed in optimal positioning. CARDIOVASCULAR: Regular rate and rhythm. RESPIRATORY: No accessory muscle use. Clear to auscultation. Breath sounds equal bilaterally. GASTROINTESTINAL: Abdomen soft, non-tender, nondistended. Obese abdomen. MUSCULOSKELETAL: Extremities without clubbing or cyanosis. Mild BUE and BLE edema. No obvious deformities. NEUROLOGICAL: Sedated. PSYCHIATRIC: Unable to examine; sedated. Laboratory Date/Time Source Procedure Growth Status 3/14/18 00:02 Blood Peripheral Aerobic Blood Culture - Final NO GROWTH IN 5 DAYS Complete 06/01/17 00:02 Blood Peripheral Anaerobic Blood Culture - Final QNS - SEE AEROBE REPORT Complete 06/13/17 07:55 Stool Stool Stool Occult Blood (EILEEN) - Final HEMOCCULT POSITIVE Complete 06/13/17 11:50 Sputum Endotracheal Gram Stain - Final Complete 06/13/17 11:50 Sputum Culture - Final Pseudomonas Aeruginosa Complete 06/13/17 13:40 Urine Catheterized Urine Urine Culture - Final Ruth Albicans Complete Result Diagram: 06/15/17 0400 06/15/17 0400 Imaging Last 48 hours Impressions Chest X-Ray 06/15/17 0000 Signed Impressions: Service Date/Time: Thursday, June 15, 2017 03:56 - CONCLUSION: Diminished lung volumes and bilateral hazy opacities are again seen. Juancarlos Contreras MD Assessment and Plan Assessment and Plan 36 year old male with Type B aortic dissection being treated medically; s/p PEA arrest; VDRF -Plan for trach placement in OR tomorrow -NPO after MN -Hold anticoagulation -Obtain consents -I have discussed procedure including risks and benefits with the [place] on the phone; all questions were answered -Thank you for this consult; We will continue to follow Discussed Condition With Dr. Jb Lai () Attending Statement NOTE FOR SURGICAL ATTENDING, DR. TC MUHAMMAD Patient seen in the intensive care unit We'll need operative placement of trach because of his body habitus I agree with above assessment and plan. The exam, history, and the medical decision-making described in the above note were completed with the assistance of the mid-level provider. I reviewed and agree with the findings presented. I attest that I had a [id number] encounter with the patient on the same day, and personally performed and documented my assessment and findings in the medical record. The following services were provided during this hospital visit: Chart data review, vital sign assessments/reviewing monitor data Review of consultations notes if present. Medication orders/review and/or management Ordering and/or reviewing lab tests Ordering and/or interpreting/reviewing x-rays and/or diagnostic studies Care of the patient and discussion of the patient with the care team Documentation time To help prompt me to consider important information that might be impacting today's encounter and assessment, information from prior notes written by myself or my colleagues may have been "brought forward/copy and pasted" into today's note. Komal Artis/First Madeline ROGER Jun 16, 2017 11:00 Tc Muhammad MD Jun 17, 2017 13:27
--- NOTE | 2017-06-16 11:59 | PD.CONS ---
HPI History of Present Illness This is a 36 year old with PMH significant for HTN who presented to the ER with complaints of sudden chest pain radiating to his back that began during sexual intercourse. 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 On May 23 pt went into PEA arrest and after ROSC was intubated and sedated. Pt was able to be extubated May 26, however did not tolerate this and required reintubation May 30. Our service was previously following pt for elevated LFTs which were stated to be likely secondary to shock liver vs congestive hepatomegaly given history of normal LFTs on admission. Our service has been reconsulted to evaluate pt for PEG tube placement. Currently has OG tube with TF running, Nepro with goal rate 55mL/hr. GS has also been consulted and are planning on tracheostomy placement tomorrow. (Yeni Mcdonnell) PFSH Past Medical History HTN CORI Past Surgical History repair inguinal hernia (Yeni Mcdonnell) Coded Allergies: No Known Allergies (Unverified , 05/19/17) Family History none per EMR Social History occasional etoh no tobacco or illicit drug use (Yeni Mcdonnell) Review of Systems Unable to obtain (Yeni Mcdonnell) GI Exam Vitals I&O Vital Signs Date Time Temp Pulse Resp B/P (MAP) Pulse Ox O2 Delivery O2 Flow Rate FiO2 06/16/17 09:35 97 40 06/16/17 08:00 40 06/16/17 08:00 97.2 64 112/59 (76) 94 06/16/17 06:00 72 06/16/17 04:44 99 40 06/16/17 04:00 40 06/16/17 04:00 63 06/16/17 04:00 98.1 63 126/64 (84) 98 06/16/17 02:00 64 06/16/17 00:51 98 40 06/16/17 00:00 50 06/16/17 00:00 98.0 62 112/58 (76) 98 06/16/17 00:00 62 06/15/17 22:00 97 50 06/15/17 22:00 61 06/15/17 20:00 97.5 65 24 106/65 (79) 99 06/15/17 20:00 50 06/15/17 20:00 65 06/15/17 16:00 45 06/15/17 16:00 97.5 56 0 105/58 (74) 94 06/15/17 12:00 98.3 62 21 108/56 (73) 94 06/15/17 12:00 45 I/O 06/15/17 06/15/17 06/15/17 06/16/17 06/16/17 06/16/17 07:00 15:00 23:00 07:00 15:00 23:00 Intake Total 2567 ml 1326 ml 1728 ml Output Total 1600 ml 1350 ml 450 ml Balance 967 ml -24 ml 1278 ml IV Total 1450 ml 700 ml 700 ml Tube Feeding 517 ml 426 ml 528 ml Other 600 ml 200 ml 500 ml Output Urine Total 1600 ml 1350 ml 450 ml # Bowel Movements 0 1 1 Imaging Last Impressions Chest X-Ray 06/15/17 0000 Signed Impressions: Service Date/Time: Thursday, June 15, 2017 03:56 - CONCLUSION: Diminished lung volumes and bilateral hazy opacities are again seen. Juancarlos Contreras MD Abdomen X-Ray 06/02/17 0000 Signed Impressions: Service Date/Time: May 10:18 - CONCLUSION: NG tip in stomach. Left basilar airspace disease. Elevated right hemidiaphragm. Bowel gas pattern demonstrates mild ileus Tc Varghese MD Liver Ultrasound 05/31/17 1434 Signed Impressions: Service Date/Time: Wednesday, May 31, 2017 14:40 - CONCLUSION: 1. Interval apparent hepatomegaly with diffusely increased hepatic echogenicity. Given the acuity of findings, findings may reflect acute hepatitis or congestive hepatopathy. 2. Persistently contracted gallbladder which accentuates the gallbladder wall with persistent gallbladder wall thickening and trace pericholecystic fluid. These findings are commonly seen in the setting of liver disease although differential considerations include acalculous cholecystitis. HIDA scan may be performed for better evaluation as clinically appropriate. 3. Andrew Kraft MD Lung Scan-V Nuclear Medicine 05/23/17 0000 Signed Impressions: Service Date/Time: Tuesday, May 23, 2017 10:22 - CONCLUSION: Low probability of pulmonary embolism. Buddy Harrison MD FACR Lower Extremity Ultrasound 3/5/18 0000 Signed Impressions: Service Date/Time: Tuesday, May 23, 2017 08:02 - CONCLUSION: Negative for deep venous thrombosis. Buddy Harrison MD FACR Head CT 05/23/17 Signed Impressions: Service Date/Time: Tuesday, May 23, 2017 03:56 - CONCLUSION: 1. Examination quality is degraded by motion artifact. 2. No definite acute finding is identified. There is a 3 mm punctate area of high density in the left frontal periventricular white matter. This could represent small focus of acute blood products. Suggest attention to this on followup imaging. Wiliam Buck MD Brain MRI 05/23/17 Signed Impressions: Service Date/Time: Tuesday, May 23, 2017 15:59 - CONCLUSION: 1. 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 2. No hemorrhage observe. 3. Pansinus disease. Rudy Cervantes Jr., MD Aorta CTA 05/23/17 Signed Impressions: Service Date/Time: Tuesday, May 23, 2017 03:58 - CONCLUSION: 1. 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 The dissection extends to the abdominal aorta and terminates in the common iliac arteries bilaterally. The abdominal vessels arise from both the true and false lumens and demonstrate good opacification. Suggest correlating with the patient's prior imaging study which documents the dissection. 2. 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 3. There is stranding of the periaortic fat adjacent to the arch aneurysm. 4. There are small bilateral pleural effusions, left larger than right, with bilateral volume loss and/or airspace consolidation bilaterally. Wiliam Buck MD Abdomen Ultrasound 05/23/17 Signed Impressions: Service Date/Time: Tuesday, May 23, 2017 17:22 - CONCLUSION: 1. Gall bladder wall thickening and possible pericholecystic fluid without evidence of gallstones. May consider perform hepatic biliary tract scan to evaluate for acalculous cholecystitis. 2. No focal abnormality seen within the liver. Rudy Pollock MD Laboratory Date/Time Source Procedure Growth Status 06/01/17 00:02 Blood Peripheral Aerobic Blood Culture - Final NO GROWTH IN 5 DAYS Complete 06/01/17 00:02 Blood Peripheral Anaerobic Blood Culture - Final QNS - SEE AEROBE REPORT Complete 06/13/17 07:55 Stool Stool Stool Occult Blood (EILEEN) - Final HEMOCCULT POSITIVE Complete 06/13/17 11:50 Sputum Endotracheal Gram Stain - Final Complete 06/13/17 11:50 Sputum Culture - Final Pseudomonas Aeruginosa Complete 06/13/17 13:40 Urine Catheterized Urine Urine Culture - Final Ruth Albicans Complete Physical Examination HEENT: Normocephalic; atraumatic CHEST: Respirations synchronized with vent. ETT CARDIAC: RRR ABDOMEN: Distended, soft, bowel sounds active. OG to TF SKIN: Normal; no rash; no jaundice. 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 S/P PEA arrest May 23 and after ROSC was intubated and sedated. Pt was able to be extubated May 26, however did not tolerate this and required reintubation May 30. GS has also been consulted and are planning on tracheostomy placement tomorrow. Currently receiving nutrition through OG- Nepro goal rate 55 mL/hr - Elevated LFTs- previously evaluated by our service- LFTs WNL on admission, etiology was shocked liver vs congestive hepatomegaly.- LFTs now WNL Liver FLANAGAN Liver US --> Interval apparent hepatomegaly with diffusely increased hepatic echogenicity. May reflect acute hepatitis vs hepatopathy. Hepatitis panel negative. LEN and ASMA negative. AMA < 20 Alpha-1 antitrypsin-[id number] Ceruloplasmin pending. AFP-2. Ammonia-42 [id number]. Discussed EGD with PEG placement with pts [place] over the phone, all questions answered, she consents to procedure for her Plan: EGD with PEG tomorrow Obtain consent Hold TF after MN Heparin on hold Meropenem for abx coverage Nutrition recommendations appreciated Further recommendations based on results of above Pt has been seen and examined by myself and Dr. Pineda and this note is written on his behalf (Yeni Mcdonnell) Physician Comments Seen and examined Agree with above Continue with current supportive care Monitor labs Plan for PEG placement tomorrow (Connor Pineda MD) Yeni Mcdonnell Jun 16, 2017 11:59 Connor Pineda MD Jun 16, 2017 20:58
[2017-06-16 12:09] LABS: AUTOMATED NEUTROPHIL # 17.9 TH/MM3 (1.8-7.7); BASOPHIL % 0.1 % (0.0-2.0); EOSINOPHIL # 0.1 TH/MM3 (0-0.4); EOSINOPHIL % 0.3 % (0.0-4.0); HEMATOCRIT 24.8 % (39.0-51.0); LYMPH % 9.4 % (9.0-44.0); LYMPHOCYTE # 2.1 TH/MM3 (1.0-4.8); MEAN CORPUSCULAR HEMOGLOBIN 26.5 PG (27.0-34.0); MEAN CORPUSCULAR HGB CONC 32.4 % (32.0-36.0); MEAN PLATELET VOLUME 10.8 FL (7.0-11.0); MONO % 8.5 % (0.0-8.0); MONOCYTE # 1.9 TH/MM3 (0-0.9); NEUT % 81.7 % (16.0-70.0); PLATELET COUNT 188 TH/MM3 (150-450); RED BLOOD COUNT 3.02 MIL/MM3 (4.50-5.90); RED CELL DISTRIBUTION WIDTH 17.1 % (11.6-17.2); WHITE BLOOD COUNT 21.9 TH/MM3 (4.0-11.0)
[2017-06-16 12:26] LABS: BICARBONATE 23.3 MEQ/L (21.0-32.0); CALCIUM 7.5 MG/DL (8.5-10.1); CREATININE 2.43 MG/DL (0.60-1.30)
[2017-06-16 12:49] LABS: BANDS 5 % (0-6); CORRECTED NUCLEATED RBC 2 /100 WBC (0-0); LYMPHOCYTES 4 % (9-44); METAMYELOCYTES 3 % (0-1); MONOCYTES 7 % (0-8); NEUTROPHIL # MANUAL DIFF 19.3 TH/MM3 (1.8-7.7); NUCLEATED RED BLOOD CELL 2 (0-0); OVALOCYTES 1+ (NORMAL); POLYS (SEG NEUTROPHILS) 80 % (16-70)
--- NOTE | 2017-06-16 12:52 | HHI.NPPN ---
Subjective History of Present Illness 36 year old with Aortic dissection ARF Additional Remarks Patient remains intubated Objective Data Data Vital Signs Date Time Temp Pulse Resp B/P (MAP) Pulse Ox O2 Delivery O2 Flow Rate FiO2 06/16/17 11:59 97 40 06/16/17 09:35 97 40 06/16/17 08:00 40 06/16/17 08:00 97.2 64 112/59 (76) 94 06/16/17 06:00 72 06/16/17 04:44 99 40 06/16/17 04:00 40 06/16/17 04:00 63 06/16/17 04:00 98.1 63 126/64 (84) 98 06/16/17 02:00 64 06/16/17 00:51 98 40 06/16/17 00:00 50 06/16/17 00:00 98.0 62 112/58 (76) 98 06/16/17 00:00 62 06/15/17 22:00 97 50 06/15/17 22:00 61 06/15/17 20:00 97.5 65 24 106/65 (79) 99 06/15/17 20:00 50 06/15/17 20:00 65 06/15/17 16:00 45 06/15/17 16:00 97.5 56 0 105/58 (74) 94 -: 06/16/17 0952 06/16/17 0952 Physical Exam General Appearance: Well Developed Eyes Eye Exam: Pupils Equal Neck Neck Exam: Neck Supple Pulmonary Resp Exam: Clear Bilaterally Cardiology CV Exam: Regular, Normal Sinus Rhythm Gastrointestinal/Abdomen GI Exam: Soft, Non-Tender Genitourinary Exam: Clear Urine Integumentary Skin Exam: Intact Extremeties Extremities Exam: Moderate Edema, Pitting Edema, Dependent Edema Assessment/Plan Problem List: (1) Acute renal failure ICD Codes: N17.9 - Acute kidney failure, unspecified Plan: He has large dissection of aorta continue to monitor he is passing urine , creatinine he did receive IV contrast repeat CTA Dissection up to Common Iliac arteries seen with true and false lumen perfused Cr 5.6-> 5.7 -> 5.7 -> 5.3 -> 5 -> 4.4-. 3.9-> 3.5 ->3.16-> 2.74 -> 2.8->2.8-> 2.4 non oliguric, off all diuretics off IVF water 250 ml q 8 Sodium 147 PRBC/Lasix given UOP 1.8 L BUN increased slightly stable K normal remains intubated Patient has good urine out. Pseudomonas on Meropenem (2) Dissection of aorta, thoracoabdominal ICD Codes: I71.03 - Dissection of thoracoabdominal aorta Status: Acute Plan: vascular is following Renal arteries remains perfused Roz Flannery MD Jun 16, 2017 12:52
--- NOTE | 2017-06-16 13:03 | PD.CONS ---
Consult Service Palliative Care Consult Requested By Dr. Sheila Arango Primary Care Physician Unknown Reason for Consultation a. To assist with evaluation and management of symptoms including: dyspnea b. To assist medical decision maker(s) with: better understanding of current medical conditions; weighing benefits/burdens of medical treatment options; making medical treatment decisions. HPI History of Present Illness This 36-year-old male was transferred via [facility] from another hospital facility for cardiovascular services available here. He has known history of hypertension he reported intense chest pain onset during intercourse. No prior history of chest pain. Had decreased some by time of presentation. 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 He was apparently here visiting from [place] on a conference and reported not taking his antihypertensives due to being on vacation. He reported having sudden onset of severe substernal radiating chest pain to the back earlier that day during sexual intercourse. At other facility was found to have acute type B dissection--->> He was then emergently transferred to [facility]. 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 ("Most worrisome radiographic features include overall size (42mm) and celiac occlusion proximally") * 3/2 2D echo-- 65-70-% . Patient on CPAP (reported to be on home CPAP). No further chest pain or abdominal pain. Required IV fluid boluses for decreased urine output. On esmolol, labetalol drips. Drowsy but arousable. * 3/2 CV surgery following, patient to have aggressive BP control with goal less than 110, ongoing neurovascular checks, serial abdominal exams, follow LFTs , creatinine, repeat CTA planned in 2 days. Nephrology consulted for increasing creatinine, positive fluid balance. * Nephrology--continue hydration, may need sodium bicarbonate, control blood pressure. * 3/5 CODE BLUE--patient reported on BiPAP, removed mass, desaturated, then became bradycardic, he had PEA arrest. CPR initiated, after 14 minutes ROSC. Postcode :sinus rhythm, hypertensive BP 180 systolic. * 3/5 repeat 2D echo EF 6065% no regional wall motion abnormalities raise mitral , tricuspid regurg * Repeat CTA indicates stable TBAD without malperfusion and no rupture, CT brain shows possible punctate hemorrhage left side. CV to continue to control BP systolic 110-120, lighten sedation and wean vent as tolerated, no surgical interventions for TBAD at this time will need repeat CT in 1 month as outpatient. CV surgery notes discussed aortic prognosis and overall clinical picture with patient and and brother at bedside. * 05/23 EEG mild diffuse encephalopathy no focal abnormality no seizure activity * Cardiology consulted: Troponin levels mildly abnormal, this most likely secondary to renal insufficiency as well as PEA event which may have been precipitated by hypoxemia. Continue medical management, consider stress test as outpatient . * Neurology consulted: MRI indicates possibly small scattered infarcts in white matter may be cardioembolic. ? Dissection could be a source for stroke defers anticoagulation to medical team. * Neurology continues to follow bilateral CVA likely secondary to cardiac arrest ;stable neurologically, following commands * 05/26 patient extubated, on BiPAP overnight. Creatinine remains elevated. ST following patient tolerating thin liquids pure and soft solids. * 05/28 still requiring esmolol gtt for BP . AK I, probable ATN nonoliguric, IV fluids decreased per nephrology recommendations, diuresis with Lasix. Patient tachypneic, hypercapnia on simple mask started on BiPAP. requesting transfer to [place] when patient stable. Sputum culture MSSA sensitive; on Rocephin * 05/29 continues to require BiPAP, aggressive diuresis, high risk for reintubation * 05/30 desaturation in the morning, tachypneic requiring increased BiPAP settings, REintubated by critical care. CXR with bilateral pulmonary infiltrates. Bronchoscopy later in the afternoon--bronchoscopy revealed no mucous plugging normal bronchial mucosa without lesions no signs of bleeding. On broad-spectrum antibiotics. * 05/31 febrile 102.8. FiO2 80%. Elevated transaminases--GI consult. Creatinine still increasing. * GI consulted: Elevated LFTs: ? Etiology shock liver versus gallbladder, LFTs normal at admission, uptrending w/ sudden increase at consultation. Ultrasound 05/23 with gallbladder wall thickening possible pericholecystic fluid no stones. Repeat ultrasound pending follow LFTs * 06/02 ID consulted: Abx associated ileus , diarrhea - r/o c.diff. Continued Zosyn, Vanco * 06/07 CV surgery continues to follow= continue aggressive BP control systolic BP less than 120 no contraindication anticoagulation will need another CTA in 1 month as outpatient. Continue to wean vent as tolerated, management per critical care. Patient had been requiring Flolan--weaned off. * 06/12 tolerating CPAP trials requiring pressure support 12, PEEP of 5. Creatinine down some. On Differin, fentanyl, Precedex. 06/14 transfused 1 unit RBC for hemoglobin 6.7. * 06/16 palliative care consulted to assist with clarification of goals of treatment. Patient planned for tracheostomy and PEG this week. PT seen in room no visitors present. He is sedated, non responsive to exam. Currently on 250 mics/hour fentanyl, propofol 50 mics per kilogram per minute, and Precedex 1 kyler per kilogram per hour. +generalized edema. No distress. Following exam call to , rings and then disconnects. Called again, able to leave VM w contact info. Discussed with critical care attending, primary nurse. 1400 later called me back, spoke w her at length, see family conference for additional detail. . Function/Cognitive Trajectory Previously lived at home independent with all ADLs. 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 Past Surgical History repair inguinal hernia tonsils/adenoids . Reported Medications 2 blood pressure meds metoprolol, losartan?, Per EMR . Current Medications Medications (Trade) Dose Ordered Sig/Melissa Route Start Time Stop Time Status Last Admin (Senokot) 17.2 mg Q12H PRN PO 05/19/17 19:30 (Dulcolax Supp) 10 mg DAILY PRN RECTAL 05/19/17 19:30 (Lopressor Inj) 5 mg Q1H PRN IV PUSH 05/19/17 20:30 06/12/17 17:03 (Zofran Inj) 4 mg Q6H PRN IV PUSH 05/19/17 20:30 Miscellaneous Information 1 Q361D XX 05/19/17 20:30 05/19/17 20:30 (Chlorhexidine 2% Cloth) Taper DAILY@04 TOP 05/20/17 04:00 05/16/18 03:59 06/13/17 04:00 (Chlorhexidine 2% Cloth) 3 pack UNSCH PRN TOP 05/19/17 20:30 (Albuterol Neb) 2.5 mg Q2HR NEB PRN NEB 05/28/17 17:15 06/15/17 21:58 (Aspirin Chew) 162 mg DAILY CHEW 05/29/17 09:00 06/16/17 08:28 (Coreg) 25 mg Q12HR PO 05/29/17 10:00 06/16/17 08:28 (Cardizem) 90 mg Q6HR PO 05/29/17 12:00 06/16/17 05:17 (Tears Naturale Opth Soln) 1 drop Q8HR EACH EYE 05/29/17 22:00 06/16/17 05:17 (Peridex 0.12% Liq) 15 ml BID@08,20 MT 05/30/17 20:00 06/16/17 08:00 (Pill Splitter) 1 ea UNSCH PRN OTHER 05/30/17 10:30 (D50w (Vial) Inj) 50 ml UNSCH PRN IV PUSH 05/30/17 11:00 (Glucagon Inj) 1 mg UNSCH PRN OTHER 05/30/17 11:00 (NovoLIN R SUPPLEMENTAL SCALE) 1 Q6HR SQ 05/30/17 12:00 06/16/17 05:18 (Heparin Inj) 5,000 units BID SQ 05/31/17 21:00 Future Hold 06/13/17 20:23 (NS Flush) DAILY IV FLUSH 05/31/17 09:00 06/16/17 08:28 (NS Flush) UNSCH PRN IV FLUSH 05/31/17 08:45 Fentanyl Citrate 250 ml @ 5 mls/hr TITRATE PRN IV 05/31/17 18:30 06/16/17 01:13 (Trandate Inj) 10 mg Q4H PRN IV PUSH 06/04/17 00:45 06/14/17 17:33 (Apresoline Inj) 20 mg Q4H PRN IV PUSH 06/04/17 00:45 06/12/17 18:20 Propofol 100 ml @ 0 mls/hr TITRATE PRN IV 06/07/17 17:45 06/16/17 10:20 Dexmedetomidine HCl 1000 mcg/ Sodium Chloride 250 ml @ 7 mls/hr TITRATE PRN IV 3/24/18 20:00 06/16/17 05:21 Labetalol HCl 500 mg/Sodium Chloride 250 ml @ 60 mls/hr TITRATE PRN IV 06/12/17 15:15 06/16/17 11:07 (Catapres) 0.3 mg Q8HR PO 06/12/17 22:00 06/16/17 05:17 (Free Water) 250 ml Q8HR G-TUBE 06/13/17 14:00 06/16/17 05:17 (SoluMEDROL INJ) 40 mg DAILY IV PUSH 06/14/17 09:00 06/16/17 08:27 (Pepcid) 10 mg BID PO 06/13/17 21:00 06/16/17 08:28 (Levemir Inj) 7 units Q12HR SQ 06/13/17 14:45 06/16/17 08:28 (Apresoline) 50 mg Q6H OG-TUBE 06/13/17 20:00 06/16/17 08:28 Meropenem 1000 mg/ Sodium Chloride 100 ml @ 200 mls/hr Q12H IV 06/14/17 18:00 06/16/17 05:17 Family History family hx Htn. No family history of vascular disease, coronary disease, aortic disease. Substance Use Tobacco: None Alcohol: Occasional Prescription med abuse: None Illicits: None . 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 . Has 3 children still living at home 6-year-old son, 8-year-old daughter, 17-year-old. 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 Had multiple chronic illnesses which limited his ability to work outside of the home. indicated that he had had frequent doctor's visits and some hospital visits due to heart failure, obstructive sleep apnea. He would fall asleep often during the day. Patient originally from [place], has some family still in [facility]. is from [place], they lived in [place] for some time though have now been living in [place]. Spiritual/Cultural Factors Member of the [employer], declines job placement officer visit at this time clergy from their affiliation has visited Living Will: Never completed Health Care Surrogate: Never completed Durable Power of Judicial Reporter: Never completed Ethical and Legal Issues Patient not able to participate in medical decision making secondary to clinical conditions not clear if or when he will regain ability to make decisions. Per [place] statute his would be appropriate legal proxy. . Physical Exam Vital Signs Date Time Temp Pulse Resp B/P (MAP) Pulse Ox O2 Delivery O2 Flow Rate FiO2 06/16/17 09:35 97 40 06/16/17 08:00 40 06/16/17 08:00 97.2 64 112/59 (76) 94 06/16/17 06:00 72 06/16/17 04:44 99 40 06/16/17 04:00 40 06/16/17 04:00 63 06/16/17 04:00 98.1 63 126/64 (84) 98 06/16/17 02:00 64 06/16/17 00:51 98 40 06/16/17 00:00 50 06/16/17 00:00 98.0 62 112/58 (76) 98 06/16/17 00:00 62 06/15/17 22:00 97 50 06/15/17 22:00 61 06/15/17 20:00 97.5 65 24 106/65 (79) 99 06/15/17 20:00 50 06/15/17 20:00 65 06/15/17 16:00 45 06/15/17 16:00 97.5 56 0 105/58 (74) 94 06/15/17 12:00 98.3 62 21 108/56 (73) 94 06/15/17 12:00 45 Exam CONSTITUTIONAL/GENERAL: This is an obese patient sedated on mechanical vent no apparent distress TUBES/LINES/DRAINS: Left subclavian central line, ET tube, OG tube, Ledesma catheter SKIN: No jaundice, rashes, or lesions. No wounds seen anteriorly. Skin warm and dry. 2+ generalized edema HEAD: Atraumatic. Normocephalic. EYES: Pupils equal and round and reactive. No scleral icterus. No injection or drainage. Fundi not examined. ENT: Nose without bleeding or purulent drainage. Unable to examine oropharynx secondary to ET tube, OG tube NECK: Trachea midline. Supple, nontender. No palpable thyroid enlargement or nodularity. CARDIOVASCULAR: Regular rate and rhythm without murmur. Peripheral pulses symmetric. 2+ edema to extremities RESPIRATORY/CHEST: Symmetric, unlabored respirations. Clear to auscultation. Breath sounds equal bilaterally. No wheezes, rales, or rhonchi. GASTROINTESTINAL: Abdomen soft, round, obese , nondistended. No palpable masses. Bowel sounds hypoactive. Tube feed infusing via G-tube GENITOURINARY: Without palpable bladder distension. Ledesma catheter in place. MUSCULOSKELETAL: Extremities without clubbing, cyanosis. No joint effusion noted. No mottling or clubbing. NEUROLOGICAL: Sedated on mechanical vent. Nonresponsive to my exam. No movement of extremities. No eye opening. PSYCHIATRIC: Limited assessment due to clinical condition, no apparent distress , on multiple sedatives Diagnostic Tests Laboratory Laboratory Tests Test 06/13/17 13:40 06/13/17 22:50 06/14/17 04:30 06/14/17 09:45 Urine Color YELLOW (YELLW/STRAW) Urine Turbidity HAZY (CLEAR) Urine pH 5.5 (5.0-8.5) Urine Specific [place] 1.017 (1.002-1.035) Urine Protein 30 mg/dL (NEG-TRACE) Urine Glucose (UA) NEG mg/dL (NEG) Urine Ketones NEG mg/dL (NEG) Urine Occult Blood SMALL (NEG) Urine Nitrite NEG (NEG) Urine Bilirubin NEG (NEG) Urine Urobilinogen LESS THAN 2.0 MG/DL (LESS Urine Leukocyte Esterase TRACE (NEG) Urine RBC 3 /hpf (0-3) Urine WBC 4 /hpf (0-5) Urine Amorphous Sediment RARE Urine Bacteria RARE /hpf (NONE) Urine Mucus FEW /lpf (OCC) Urine Yeast (Budding) OCC (NONE) Microscopic Urinalysis Comment CATH-CULTURE IND Hemoglobin 7.1 GM/DL (13.0-17.0) 6.7 GM/DL (13.0-17.0) Hematocrit 22.1 % (39.0-51.0) 21.3 % (39.0-51.0) White Blood Count 16.5 TH/MM3 (4.0-11.0) Red Blood Count 2.58 MIL/MM3 (4.50-5.90) Mean Corpuscular Volume 82.5 FL (80.0-100.0) Mean Corpuscular Hemoglobin 26.1 PG (27.0-34.0) Mean Corpuscular Hemoglobin Concent 31.7 % (32.0-36.0) Red Cell Distribution Width 17.4 % (11.6-17.2) Platelet Count 175 TH/MM3 (150-450) Mean Platelet Volume 10.0 FL (7.0-11.0) Neutrophils (%) (Auto) 80.0 % (16.0-70.0) Lymphocytes (%) (Auto) 9.9 % (9.0-44.0) Monocytes (%) (Auto) 10.0 % (0.0-8.0) Eosinophils (%) (Auto) 0.0 % (0.0-4.0) Basophils (%) (Auto) 0.1 % (0.0-2.0) Neutrophils # (Auto) 13.2 TH/MM3 (1.8-7.7) Lymphocytes # (Auto) 1.6 TH/MM3 (1.0-4.8) Monocytes # (Auto) 1.6 TH/MM3 (0-0.9) Eosinophils # (Auto) 0.0 TH/MM3 (0-0.4) Basophils # (Auto) 0.0 TH/MM3 (0-0.2) CBC Comment DIFF FINAL Differential Comment Blood Urea Nitrogen 105 MG/DL (7-18) Creatinine 2.80 MG/DL (0.60-1.30) Random Glucose 214 MG/DL (74-106) Total Protein 5.4 GM/DL (6.4-8.2) Albumin 1.9 GM/DL (3.4-5.0) Calcium Level 7.6 MG/DL (8.5-10.1) Alkaline Phosphatase 50 U/L (45-117) Aspartate Amino Transf (AST/SGOT) 17 U/L (15-37) Alanine Aminotransferase (ALT/SGPT) 73 U/L (12-78) Total Bilirubin 0.5 MG/DL (0.2-1.0) Sodium Level 148 MEQ/L (136-145) Potassium Level 3.8 MEQ/L (3.5-5.1) Chloride Level 113 MEQ/L (98-107) Carbon Dioxide Level 24.3 MEQ/L (21.0-32.0) Anion Gap 11 MEQ/L (5-15) Estimat Glomerular Filtration Rate 31 ML/MIN (>89) Blood Gas Puncture Site LT RADIAL Blood Gas Patient Temperature 98.6 Blood Gas HCO3 23 mmol/L (22-26) Blood Gas Base Excess -3.1 mmol/L (-2-2) Blood Gas Oxygen Saturation 92 % (90-100) Arterial Blood pH 7.23 (7.380-7.420) Arterial Blood Partial Pressure CO2 57 mmHg (38-42) Arterial Blood Partial Pressure O2 82 mmHg (61-120) Arterial Blood Oxygen Content 10.7 Vol % (12.0-20.0) Arterial Blood Carboxyhemoglobin 1.4 % (0-4) Arterial Blood Methemoglobin 1.4 % (0-2) Blood Gas Hemoglobin 8.2 G/DL (12.0-16.0) Oxygen Delivery Device VENTILATOR Blood Gas Ventilator Setting PRVC/AC 500/16 Blood Gas Inspired Oxygen 35 % Test 06/14/17 11:15 06/14/17 14:14 06/14/17 17:35 06/15/17 04:00 Hemoglobin 8.1 GM/DL (13.0-17.0) 8.3 GM/DL (13.0-17.0) 8.0 GM/DL (13.0-17.0) Hematocrit 24.7 % (39.0-51.0) 25.0 % (39.0-51.0) 23.4 % (39.0-51.0) Blood Gas Puncture Site LT RADIAL Blood Gas Patient Temperature 98.6 Blood Gas HCO3 22 mmol/L (22-26) Blood Gas Base Excess -3.0 mmol/L (-2-2) Blood Gas Oxygen Saturation 87 % (90-100) Arterial Blood pH 7.31 (7.380-7.420) Arterial Blood Partial Pressure CO2 46 mmHg (38-42) Arterial Blood Partial Pressure O2 62 mmHg (61-120) Arterial Blood Oxygen Content 11.7 Vol % (12.0-20.0) Arterial Blood Carboxyhemoglobin 1.6 % (0-4) Arterial Blood Methemoglobin 1.2 % (0-2) Blood Gas Hemoglobin 9.5 G/DL (12.0-16.0) Oxygen Delivery Device VENTILATOR Blood Gas Ventilator Setting Blood Gas Inspired Oxygen 35 % Stool C. difficile Toxin (PCR) NEGATIVE (NEGATIVE) Stl C. difficile Toxin Epiderm 027 PRESUMPTIVE NEGATIVE White Blood Count 19.4 TH/MM3 (4.0-11.0) Red Blood Count 2.90 MIL/MM3 (4.50-5.90) Mean Corpuscular Volume 80.8 FL (80.0-100.0) Mean Corpuscular Hemoglobin 27.6 PG (27.0-34.0) Mean Corpuscular Hemoglobin Concent 34.1 % (32.0-36.0) Red Cell Distribution Width 17.0 % (11.6-17.2) Platelet Count 173 TH/MM3 (150-450) Mean Platelet Volume 10.4 FL (7.0-11.0) Neutrophils (%) (Auto) 82.9 % (16.0-70.0) Lymphocytes (%) (Auto) 7.6 % (9.0-44.0) Monocytes (%) (Auto) 9.3 % (0.0-8.0) Eosinophils (%) (Auto) 0.1 % (0.0-4.0) Basophils (%) (Auto) 0.1 % (0.0-2.0) Neutrophils # (Auto) 16.1 TH/MM3 (1.8-7.7) Lymphocytes # (Auto) 1.5 TH/MM3 (1.0-4.8) Monocytes # (Auto) 1.8 TH/MM3 (0-0.9) Eosinophils # (Auto) 0.0 TH/MM3 (0-0.4) Basophils # (Auto) 0.0 TH/MM3 (0-0.2) CBC Comment AUTO DIFF Differential Total Cells Counted 100 Neutrophils % (Manual) 88 % (16-70) Lymphocytes % 6 % (9-44) Monocytes % 5 % (0-8) Neutrophils # (Manual) 17.3 TH/MM3 (1.8-7.7) Myelocytes 1 % (0-0) Differential Comment FINAL DIFF MANUAL Platelet Estimate NORMAL (NORMAL) Platelet Morphology Comment ENLARGED (NORMAL) Ovalocytes 1+ (NORMAL) Blood Urea Nitrogen 97 MG/DL (7-18) Creatinine 2.56 MG/DL (0.60-1.30) Random Glucose 214 MG/DL (74-106) Calcium Level 7.5 MG/DL (8.5-10.1) Sodium Level 148 MEQ/L (136-145) Potassium Level 3.6 MEQ/L (3.5-5.1) Chloride Level 114 MEQ/L (98-107) Carbon Dioxide Level 23.6 MEQ/L (21.0-32.0) Anion Gap 10 MEQ/L (5-15) Estimat Glomerular Filtration Rate 35 ML/MIN (>89) Result Diagram: 06/15/1739906/15/17399 Microbiology Microbiology Date/Time Source Procedure Growth Status 06/13/17 11:50 Sputum Endotracheal Gram Stain - Final Complete 06/13/17 11:50 Sputum Culture - Final Pseudomonas Aeruginosa Complete 06/13/17 13:40 Urine Catheterized Urine Urine Culture - Final Ruth Albicans Complete Imaging Last Impressions Chest X-Ray 06/15/17 0000 Signed Impressions: Service Date/Time: Thursday, June 15, 2017 03:56 - CONCLUSION: Diminished lung volumes and bilateral hazy opacities are again seen. Juancarlos Contreras MD Abdomen X-Ray 06/02/17 0000 Signed Impressions: Service Date/Time: May 10:18 - CONCLUSION: NG tip in stomach. Left basilar airspace disease. Elevated right hemidiaphragm. Bowel gas pattern demonstrates mild ileus Tc Varghese MD Liver Ultrasound 05/31/17 1434 Signed Impressions: Service Date/Time: Wednesday, May 31, 2017 14:40 - CONCLUSION: 1. Interval apparent hepatomegaly with diffusely increased hepatic echogenicity. Given the acuity of findings, findings may reflect acute hepatitis or congestive hepatopathy. 2. Persistently contracted gallbladder which accentuates the gallbladder wall with persistent gallbladder wall thickening and trace pericholecystic fluid. These findings are commonly seen in the setting of liver disease although differential considerations include acalculous cholecystitis. HIDA scan may be performed for better evaluation as clinically appropriate. 3. Andrew Kraft MD Lung Scan-V Nuclear Medicine 05/23/17 Signed Impressions: Service Date/Time: Tuesday, May 23, 2017 10:22 - CONCLUSION: Low probability of pulmonary embolism. Buddy Harrison MD FACR Lower Extremity Ultrasound 05/23/17 Signed Impressions: Service Date/Time: Tuesday, May 23, 2017 08:02 - CONCLUSION: Negative for deep venous thrombosis. Buddy Harrison MD FACR Head CT 05/23/17 Signed Impressions: Service Date/Time: Tuesday, May 23, 2017 03:56 - CONCLUSION: 1. Examination quality is degraded by motion artifact. 2. No definite acute finding is identified. There is a 3 mm punctate area of high density in the left frontal periventricular white matter. This could represent small focus of acute blood products. Suggest attention to this on followup imaging. Wiliam Buck MD Brain MRI 05/23/17 0000 Signed Impressions: Service Date/Time: Tuesday, May 23, 2017 15:59 - CONCLUSION: 1. 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 2. No hemorrhage observe. 3. Pansinus disease. Rudy Cervantes Jr., MD Aorta CTA 05/23/17 0000 Signed Impressions: Service Date/Time: Tuesday, May 23, 2017 03:58 - CONCLUSION: 1. 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 The dissection extends to the abdominal aorta and terminates in the common iliac arteries bilaterally. The abdominal vessels arise from both the true and false lumens and demonstrate good opacification. Suggest correlating with the patient's prior imaging study which documents the dissection. 2. 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 3. There is stranding of the periaortic fat adjacent to the arch aneurysm. 4. There are small bilateral pleural effusions, left larger than right, with bilateral volume loss and/or airspace consolidation bilaterally. Wiliam Buck MD Abdomen Ultrasound 05/23/17 0000 Signed Impressions: Service Date/Time: Tuesday, May 23, 2017 17:22 - CONCLUSION: 1. Gall bladder wall thickening and possible pericholecystic fluid without evidence of gallstones. May consider perform hepatic biliary tract scan to evaluate for acalculous cholecystitis. 2. No focal abnormality seen within the liver. Rudy Pollock MD Procedures 05/23 CODE BLUE: Intubation, radial art line, central line Patient/Family Conference Family Conference Location: Bedside, Telephone Issues Discussed: Family meeting pending, though nursing has indicated family () has elected to proceed with tracheostomy and PEG and they are scheduled for tomorrow 1400 Later called back by patient . Spoke with her for 47 minutes via phone. Discussion included: Palliative care role, team members, reason for consult Additional medical/social/spiritual history Patient cognitive and functional status in the months to weeks prior to this admission family understanding of current medical conditions, prognosis, treatment options , review of possible trajectories going forward including potential complications and setbacks patient may face CODE STATUS[] elects patient should remain full code Palliative care contact information provided Extensive discussion with review of hospital course from admission, diagnostics, clinical course thus far, benefits/burdens of continued ICU interventions, benefits/burdens of prolonged ICU and hospitalization. Review of possible trajectories going forward likely patient to require prolonged hospitalization possibly LTAC, as well as extensive rehabilitation, not clear if he will regain prior activity level at this time will be dependent on clinical course. All questions answered. She indicates Elis duenas CM working on [employer] paperwork for her, requests I follow up w her to ensure she has everything she needs to complete. Ms. Lai expresses aggressive goals to continue interventions available to help her 's recovery, including tracheostomy and PEG tube. Ms Lai is open to ongoing discussions as clinical course evolves. 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 . Has 3 children still living at home 6-year-old son, 8-year-old daughter, 17- year-old. 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 Had multiple chronic illnesses which limited his ability to work outside of the home. indicated that he had had frequent doctor's visits and some hospital visits due to heart failure, obstructive sleep apnea. He would fall asleep often during the day. Patient originally from [place], has some family still in [facility]. is from [place], they lived in [place] for some time though have now been living in [place]. Spiritual: Legal: Patient not able to participate in medical decision making secondary to clinical conditions not clear if or when he will regain ability to make decisions. Per [place] statute his would be appropriate legal proxy. Ethical issues impacting care: Important Contacts Nury Lai [phone] . 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 During his course here he suffered PEA arrest, with ROSC. 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 He remains on mechanical vent requiring multiple sedatives for adequate blood pressure control, for medical management of TBAD. Will require tracheostomy and PEG tube for ongoing medical management. Prognosis guarded, very high risk for ongoing complications and decline secondary to prolonged hospital course and multiple acute issues. . Code Status: Full Code Plan * Legal decision maker:Patient not able to participate in medical decision making secondary to clinical conditions not clear if or when he will regain ability to make decisions. Per [place] statute his would be appropriate legal proxy. * Goals: Goals appear aggressive at time of my consultation patient planned for tracheostomy and PEG tube , Tuesday. Palliative has not yet met with , family for further discussion. Voicemail has been left. ---1400-later able to speak with , healthcare proxy.Ms. Lai expresses aggressive goals to continue interventions available to help her 's recovery, including tracheostomy and PEG tube. Ms Lai is open to ongoing discussions as clinical course evolves. * CODE STATUS: Full code * SYMPTOMS: --Dyspnea-patient has been intubated, extubated, reintubated this admission. At some points requiring high levels of ventilator support. History of obstructive sleep apnea though this will likely resolve with tracheostomy placement. Currently breathing comfortably on mechanical ventilator with multiple sedatives in place: Propofol, fentanyl, Precedex. --Anxiety-potential for related to prolonged hospitalization, multiple invasive procedures. Currently appears comfortable on mechanical vent on above- noted sedatives. Will continue to evaluate Palliative care will continue to follow during hospital course as condition evolves, to assist patient/decision-maker with understanding of medical conditions, weighing benefits/burdens of treatment options, for clarification of goals of treatment. Additionally will assist with any symptoms of palliative concern . Thank you for the opportunity to participate in the care of Mr. Lai. Attestation To help prompt me to consider important information that might be impacting today's encounter and assessment, information from prior notes written by myself or my colleagues may have been "brought forward" into today's note. My signature on this note, however, is an attestation that I personally performed the exam, history, and/or decision-making noted today, and, unless otherwise indicated, the interactions with patient, family, and staff as well as the review of records all occurred today. I also attest that the listed assessment and stated plan reflect my best clinical judgment today based on the combination of historical information, prior notes, and today's exam/ interactions. When time spent is documented, it refers only to time spent today by the signer, or if indicated, combined time spent today by collaborating physician/nurse practitioner. Jenni Weathers Jun 16, 2017 12:43
--- NOTE | 2017-06-16 23:46 | HHI.IDPN ---
Subjective Subjective Remarks cont to have diarrhea cont to have increasing WBC remains on vent afebrile Antibiotics meropenem Allergies: Coded Allergies: No Known Allergies (Unverified , 05/19/17) Objective . Vital Signs Date Time Temp Pulse Resp B/P (MAP) Pulse Ox O2 Delivery O2 Flow Rate FiO2 06/16/17 21:30 100 40 06/16/17 20:00 70 06/16/17 20:00 98.3 70 0 113/59 (77) 99 06/16/17 20:00 40 06/16/17 18:00 68 06/16/17 16:00 69 06/16/17 16:00 40 06/16/17 16:00 98.7 69 123/64 (83) 94 06/16/17 15:53 96 40 06/16/17 14:00 71 06/16/17 12:00 97.4 66 24 125/65 (85) 97 06/16/17 12:00 66 06/16/17 12:00 40 06/16/17 11:59 97 40 06/16/17 10:00 64 06/16/17 09:35 97 40 06/16/17 08:00 40 06/16/17 08:00 97.2 64 112/59 (76) 94 06/16/17 08:00 64 06/16/17 06:00 72 06/16/17 04:44 99 40 06/16/17 04:00 40 06/16/17 04:00 63 06/16/17 04:00 98.1 63 126/64 (84) 98 06/16/17 02:00 64 06/16/17 00:51 98 40 06/16/17 00:00 50 06/16/17 00:00 98.0 62 112/58 (76) 98 06/16/17 00:00 62 06/16/17 06/16/17 06/17/17 15:00 23:00 07:00 Intake Total 950 ml 1894 ml Output Total 1900 ml Balance 950 ml -6 ml Intake Oral 0 ml IV Total 950 ml 1050 ml Tube Feeding 594 ml Other 250 ml Output Urine Total 1900 ml # Bowel Movements 1 . Laboratory Tests Test 06/15/17 04:00 06/16/17 09:52 White Blood Count 19.4 TH/MM3 21.9 TH/MM3 Red Blood Count 2.90 MIL/MM3 3.02 MIL/MM3 Hemoglobin 8.0 GM/DL 8.0 GM/DL Hematocrit 23.4 % 24.8 % Mean Corpuscular Volume 80.8 FL 82.0 FL Mean Corpuscular Hemoglobin 27.6 PG 26.5 PG Mean Corpuscular Hemoglobin Concent 34.1 % 32.4 % Red Cell Distribution Width 17.0 % 17.1 % Platelet Count 173 TH/MM3 188 TH/MM3 Mean Platelet Volume 10.4 FL 10.8 FL Neutrophils (%) (Auto) 82.9 % 81.7 % Lymphocytes (%) (Auto) 7.6 % 9.4 % Monocytes (%) (Auto) 9.3 % 8.5 % Eosinophils (%) (Auto) 0.1 % 0.3 % Basophils (%) (Auto) 0.1 % 0.1 % Neutrophils # (Auto) 16.1 TH/MM3 17.9 TH/MM3 Lymphocytes # (Auto) 1.5 TH/MM3 2.1 TH/MM3 Monocytes # (Auto) 1.8 TH/MM3 1.9 TH/MM3 Eosinophils # (Auto) 0.0 TH/MM3 0.1 TH/MM3 Basophils # (Auto) 0.0 TH/MM3 0.0 TH/MM3 CBC Comment AUTO DIFF AUTO DIFF Differential Total Cells Counted 100 100 Neutrophils % (Manual) 88 % 80 % Lymphocytes % 6 % 4 % Monocytes % 5 % 7 % Neutrophils # (Manual) 17.3 TH/MM3 19.3 TH/MM3 Myelocytes 1 % Differential Comment FINAL DIFF MANUAL FINAL DIFF MANUAL Platelet Estimate NORMAL NORMAL Platelet Morphology Comment ENLARGED ENLARGED Ovalocytes 1+ 1+ Band Neutrophils % 5 % Eosinophils % 1 % Metamyelocytes 3 % Nucleated Red Blood Cells 2 /100 WBC Laboratory Tests Test 06/15/17 04:00 06/16/17 09:52 Blood Urea Nitrogen 97 MG/DL 98 MG/DL Creatinine 2.56 MG/DL 2.43 MG/DL Random Glucose 214 MG/DL 160 MG/DL Calcium Level 7.5 MG/DL 7.5 MG/DL Sodium Level 148 MEQ/L 147 MEQ/L Potassium Level 3.6 MEQ/L 3.7 MEQ/L Chloride Level 114 MEQ/L 114 MEQ/L Carbon Dioxide Level 23.6 MEQ/L 23.3 MEQ/L Anion Gap 10 MEQ/L 10 MEQ/L Estimat Glomerular Filtration Rate 35 ML/MIN 37 ML/MIN Imaging Last Impressions Chest X-Ray 06/15/17 0000 Signed Impressions: Service Date/Time: Thursday, June 15, 2017 03:56 - CONCLUSION: Diminished lung volumes and bilateral hazy opacities are again seen. Juancarlos Contreras MD Abdomen X-Ray 06/02/17 0000 Signed Impressions: Service Date/Time: May 10:18 - CONCLUSION: NG tip in stomach. Left basilar airspace disease. Elevated right hemidiaphragm. Bowel gas pattern demonstrates mild ileus Tc Varghese MD Liver Ultrasound 05/31/17 1434 Signed Impressions: Service Date/Time: Wednesday, May 31, 2017 14:40 - CONCLUSION: 1. Interval apparent hepatomegaly with diffusely increased hepatic echogenicity. Given the acuity of findings, findings may reflect acute hepatitis or congestive hepatopathy. 2. Persistently contracted gallbladder which accentuates the gallbladder wall with persistent gallbladder wall thickening and trace pericholecystic fluid. These findings are commonly seen in the setting of liver disease although differential considerations include acalculous cholecystitis. HIDA scan may be performed for better evaluation as clinically appropriate. 3. Andrew Kraft MD Lung Scan- Nuclear Medicine 05/23/17 0000 Signed Impressions: Service Date/Time: Tuesday, May 23, 2017 10:22 - CONCLUSION: Low probability of pulmonary embolism. Buddy Harrison MD FACR Lower Extremity Ultrasound 05/23/17 0000 Signed Impressions: Service Date/Time: Tuesday, May 23, 2017 08:02 - CONCLUSION: Negative for deep venous thrombosis. Buddy Harrison MD FACR Head CT 05/23/17 0000 Signed Impressions: Service Date/Time: Tuesday, May 23, 2017 03:56 - CONCLUSION: 1. Examination quality is degraded by motion artifact. 2. No definite acute finding is identified. There is a 3 mm punctate area of high density in the left frontal periventricular white matter. This could represent small focus of acute blood products. Suggest attention to this on followup imaging. Wiliam Buck MD Brain MRI 05/23/17 0000 Signed Impressions: Service Date/Time: Tuesday, May 23, 2017 15:59 - CONCLUSION: 1. 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 2. No hemorrhage observe. 3. Pansinus disease. Rudy Cervantes Jr., MD Aorta CTA 05/23/17 Signed Impressions: Service Date/Time: Tuesday, May 23, 2017 03:58 - CONCLUSION: 1. 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 The dissection extends to the abdominal aorta and terminates in the common iliac arteries bilaterally. The abdominal vessels arise from both the true and false lumens and demonstrate good opacification. Suggest correlating with the patient's prior imaging study which documents the dissection. 2. 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 3. There is stranding of the periaortic fat adjacent to the arch aneurysm. 4. There are small bilateral pleural effusions, left larger than right, with bilateral volume loss and/or airspace consolidation bilaterally. Wiliam Buck MD Abdomen Ultrasound 05/23/17 0000 Signed Impressions: Service Date/Time: Tuesday, May 23, 2017 17:22 - CONCLUSION: 1. Gall bladder wall thickening and possible pericholecystic fluid without evidence of gallstones. May consider perform hepatic biliary tract scan to evaluate for acalculous cholecystitis. 2. No focal abnormality seen within the liver. Rudy Pollock MD Physical Exam CONSTITUTIONAL/GENERAL: This is an adequately nourished patient, sedated int'd on vent TUBES/LINES/DRAINS: SKIN: No jaundice, rashes, or lesions. Skin temperature appropriate. Not diaphoretic. EYES: Pupils equal and round and reactive. Extraocular motions intact. No scleral icterus. No injection or drainage. Fundi not examined. CARDIOVASCULAR: Regular rate and rhythm without murmurs, gallops, or rubs. No JVD. Peripheral pulses symmetric. RESPIRATORY/CHEST: Symmetric, unlabored respirations. few scattered rhonchi to auscultation. Breath sounds equal bilaterally. GASTROINTESTINAL: Abdomen soft, non-tender, nondistended. No hepato-splenomegaly , or palpable masses. No guarding. Bowel sounds present. Incontinent of large brown stool GENITOURINARY: Without palpable bladder distension. Ledesma catheter in place with very light yellow urine MUSCULOSKELETAL: Extremities without clubbing, cyanosis, + prominent edema, 3 +, tight No mottling or clubbing. NEUROLOGICAL: sedated PSYCHIATRIC: unable to assess Assessment & Plan Remarks Type B AAA dissection PNA, clx negative, but BAL cw PNA, 24 K WBC growing budding yeast from BAL - doubt clin significance CXR looks worse growing PSAE in the sputum - crawford senstitive except I gent Acute VDRF - failure to wean Non oliguric ARF Fever -resolved Leukocytosis, bandemia - improving to some degree leukocytosis is probably 2/2 sterroids; wont expect bancdemis 2/2 it however bands are less Abx associated ileus , diarrhea - c.diff negative x 3/3 Funguria change meropenem to cefepime fu sputum clx fluconazole x 7 days Discussed Condition With Nalini Bliss MD Jun 16, 2017 23:46
[2017-06-17] VITALS (23 sets, daily range): BP systolic 95–148; BP diastolic 52–65; PULSE 60–74; RESP 13–24; TEMP 97.2–98.5; O2SAT 96–100
[2017-06-17] MEDS: hydrALAZINE HCL 50 MG TAB OG-TUBE SCH ×4 (00:08→20:51)
[2017-06-17] MEDS: CEFEPIME INJ 2,000 MG in SODIUM CHLORIDE 0.9% INJ 100 ML IV SCH ×2 (00:08→15:18)
[2017-06-17] MEDS: PROPOFOL 1000 MG/100 ML INJ 100 ML IV PRN ×8 (01:27→22:27)
[2017-06-17] MEDS: LABETALOL IV PRN ×12 (03:44→23:03)
[2017-06-17] MEDS: NS IV PRN ×12 (03:44→23:03)
[2017-06-17] MEDS: CHLORHEXIDINE GLUCONATE 2 % 1 PACK (2 CLOTHS) TOP SCH (04:00)
[2017-06-17] MEDS: DEXMEDETOMIDINE INJ 1,000 MCG in SODIUM CHLOR 0.9% 250 ML INJ 240 ML IV PRN ×3 (04:10→23:04)
[2017-06-17 05:59] LABS: INTERNATIONAL NORMALIZED RATIO 1.1 RATIO; PROTHROMBIN TIME - PATIENT 11.2 SEC (9.8-11.6)
[2017-06-17] MEDS: FREE WATER G-TUBE SCH ×3 (06:00→21:02)
[2017-06-17] MEDS: INSULIN NovoLIN REGULAR SUPPLEMENTAL SCALE SQ SCH ×3 (06:00→16:53)
[2017-06-17] MEDS: ARTIFICIAL TEARS OPTH SOLN 15 ML BTL EACH EYE SCH ×3 (06:13→21:02)
[2017-06-17] MEDS: DILTIAZEM HCL 90 MG TAB PO SCH ×3 (06:13→16:53)
[2017-06-17] MEDS: cloNIDine HCL 0.3 MG TAB PO SCH ×3 (06:13→21:01)
[2017-06-17] MEDS: fentaNYL DRIP 250 ML IV PRN ×2 (07:01→20:05)
[2017-06-17] MEDS: methylPREDNISolone SOD SUCC 40 MG/1 ML VIAL IV PUSH SCH (08:09)
[2017-06-17] MEDS: ASPIRIN 81 MG CHEW TAB CHEW SCH (08:10)
[2017-06-17] MEDS: CARVEDILOL 12.5 MG TAB PO SCH ×2 (08:11→20:51)
[2017-06-17] MEDS: CHLORHEXIDINE 0.12% (ORAL KIT) 15 ML CUP MT SCH ×2 (08:11→20:52)
[2017-06-17] MEDS: SODIUM CHLORIDE 0.9% FLUSH 10 ML FLUSH IV FLUSH SCH (08:11)
[2017-06-17] MEDS: INSULIN DETEMIR 100 UNITS/ML VIAL SQ SCH ×2 (08:11→20:55)
[2017-06-17] MEDS: FAMOTIDINE 20 MG TAB PO SCH ×2 (08:11→20:51)
[2017-06-17] MEDS ORDERED: BUPIVACAINE/EPINEPHRINE 0.25% 50 ML VIAL ONE (09:39)
[2017-06-17] MEDS ORDERED: SODIUM BICARBONATE 8.4% INJ 0 ML ONE (09:53)
[2017-06-17] MEDS ORDERED: LIDOCAINE 1%/EPINEPHrine 1:100,000 SOLN 30 ML VIAL ONE (09:53)
[2017-06-17] MEDS ORDERED: SODIUM CHLORIDE 0.9% INJ 50 ML ONE (10:54)
[2017-06-17] MEDS ORDERED: PROPOFOL 500 MG/50 ML INJ 100 ML ONE (10:55)
[2017-06-17] MEDS ORDERED: DEXMEDETOMIDINE HCL 200 MCG/2 ML VIAL ONE (10:55)
--- NOTE | 2017-06-17 11:09 | HHI.CCPN ---
Subjective Remarks/Hospital Course 05/19: Is a 36-year-old male with a history of hypertension who is on vacation from the [place] area who did not take his antihypertensives today because he is on vacation, and was having sexual intercourse when he had sudden onset of severe substernal radiating to the back chest pain earlier today. 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 He was emergently transferred to [facility] for further management. I evaluated the patient on arrival to the ICU by EVAC. Patient denies abdominal pain. Still endorses chest pain although this is improving. Patient denies any other symptoms. CT chest abdomen pelvis was reviewed and reviewed with myself and Dr. Guzman and does demonstrate a type B dissection. 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 Initial laboratory evidence demonstrates a lactate of 1.3, creatinine 1.2, normal LFTs. 05/20: On home C Pap. Urine output 30 cc/h currently. Remains on esmolol and labetalol drips. Remains drowsy though arousable. +4.4 L 05/21: Resting comfortably on nasal cannula. Awake and alert currently. Denies any shortness of breath or chest pain currently. 05/22: AAO x3, resting comfortably. 05/23 Patient went into PEA arrest early this morning now sedated with Diprivan and intubated. Off Esmolol drip. 05/24 Patient is sedated with Diprivan and intubated. On Labetolol drip. MRI brain yesterday showed multiple small infracts, no hemorrhage. 05/25 Patient remains intubated and sedated. T: 100.5 last night. Renal function is worsening with Cr: 3.6 from 3.4 and UOP: 2650ml in 24 hrs. 05/26 No events overnight. Sedated and intubated. Afebrile. Cr: 3.62 , UOP: 1950ml in 24 hrs 05/27 Patient was extubated yesterday placed on BIPAP overnight. Cr: 3.42 today , UOP: 1800 ml in 24 hrs 05/28 Extubated yesterday and per report was compliant with Bipap overnight Remains on esmolol drip 200 mcg/kg/min and SBP in 140s. ZULY, probable ATN non- oliguric however I>>0 with significant intake from MIVF as well as 180 mL/hr from esmolol drip. IVF d/c per nephrology and transitioning off esmolol to minimize fluid. Hugo now per my discussion with Dr. Thornton. He is tachypneic, obtained ABG with hypercapnea on simple mask. Placing On Bipap. at bedside requesting eventual transfer to [place], though she realized he is not stable for that yet. 05/29: Remains on BiPAP since 299 with increasing respiratory rates. Will attempt a more aggressive diuresis. We started on esmolol drip due to persistent tachycardia and unable to reach target blood pressure and heart rate requirements. At high risk for reintubation. 05/30: Remained hypotensive overnight. This a.m. desaturated, tachypneic requiring high percent on BiPAP hence intubated by food and beverage intern. Will require bronchoscopy this afternoon. Continue with aggressive diuresis. Broad antibiotic coverage. Start tube feeding. The systolic blood pressure better controlled while intubated on propofol and fentanyl drips. 05/31: T-max 102.8. Currently 99.6. FiO2 down to 80%. The same noted elevated transaminases AST of 2674. ALT of 1590. Creatinine is increased to 3.07 to 4.36. +2 L past 24 hours. One bowel movement. Noted prior gallbladder wall thickening on previous ultrasound. We will repeat today Subjective 06/01: T-max 102.5. Currently 98.9. Desaturate overnight resolved currently FiO2 of 80%. 4500 cc urine output. Creatinine continues to rise currently 4.9. CPK currently 6165. We will discontinue propofol with hepatomegaly, rhabdomyolysis possibly indicative propofol infusion syndrome. 06/02 Patient remains intubated and sedated. On Fentanyl, Versed and Nimbex. T: 100.0 at midnight. On PC/AC with PEEP:15, FIO2 50% Renal function continue to decline with Cr: 5.40 from 4.91 and UOP: 2895 ml in 24 hrs 06/03 Patient remains intubated and sedated with Versed, Fentanyl drips. Remains on Nimbex and Flolan. Cr: 5.6 from 5.4 with UOP: 3790 ml in 24 hrs. 06/04:Afebrile. Overnight the patient had an episode of hypotension during the and all sedation was briefly discontinued, then resumed for ventilator synchrony. Clonidine dosage decreased. Patient continues on pressure control mode, and Flolan for adequate oxygenation. Creatinine noted to be 5.7 weight urine output 3220cc/24 hrs. 06/05: Afebrile. This x-ray revealed improving area aeration of the right hemithorax. PEEP decreased this a.m. to 12, patient continues on FiO2 55% and Flolan, planned weaning. Electrolytes currently being replaced. Elevated liver enzymes continue to down trend. 06/06: Respiratory requirements decreasing, patient now on Flolan 10 ng/kg/min with FiO2 at 60%, maintaining O2 saturation 92%. Creatinine continues to down trend. Leukocytosis improving. 06/07: Flolan discontinued, FIO2 65%. Propofol added to maintain ventilator synchrony. Patient currently on 10 mg of Versed and 250 mics of fentanyl. Wound care was consulted for skin breakdown on buttocks secondary to multiple bowel movements, patient continues on Avani bed. 06/08: No acute events overnight. Flolan discontinued greater than 18 hours patient's O2 saturation 97% on FiO2 of 65. FiO2 requirements decreased the patient continues on a PEEP of 12. Free water flushes added to medication regimen secondary to hypernatremia, sodium level 156 today. 06/09 Patient remains sedated and intubated. Afebrile. 06/10 Patient is sedated with Versed, Diprivan and Fentanyl drips, intubated. Afebrile. renal function is improving with Cr: 3.52 from 3.94 06/11 No events overnight. Sedated with Diprivan and Fentanyl drips. Off Versed. renal function continue to improve with Cr:3.16 from 3.52. 06/12 Patient remains intubated placed on CPAP with PS 12, PEEP:5 and FIO2 40%, Cr down 2.74 from 3.16. Afebrile. 06/13 No events overnight. Sedated with Diprivan, Fentanyl and on Precedex. Placed on labetalol yesterday 9mg. Afebrile. 06/14 No events overnight. Remains sedated and intubated, labetalol drip 5mg. Cr : 2.80. FOr transfusions 1unit PRBC fot Hgb 6.7 this morning. 06/15: Sedated, orally intubated on mechanical ventilation. 06/16: Remains sedated, orally intubated on mechanical ventilation. PEEP +8 FiO2 40%. Consulted GI and general surgery for PEG and tracheostomy. 06/17: Main sedated, orally intubated on mechanical ventilation. Awaiting tracheostomy and PEG tube today. Objective Vital Signs Date Time Temp Pulse Resp B/P (MAP) Pulse Ox O2 Delivery O2 Flow Rate FiO2 06/17/17 10:23 100 100 06/17/17 08:00 68 06/17/17 08:00 97.8 24 119/64 (82) Intake and Output 06/17/17 06/17/17 06/18/17 08:00 16:00 00:00 Intake Total 1611 ml Output Total 1700 ml Balance -89 ml Result Diagram: 06/16/17 0952 06/16/17 0952 Imaging Last Impressions Chest X-Ray 06/13/17 0000 Signed Impressions: Service Date/Time: Tuesday, June 13, 2017 09:52 - CONCLUSION: 1. Midinspiratory exam. The endotracheal tube tip is at the level of the julee. 2. Apparent increase in hazy opacity in both lungs which may represent pulmonary edema or be artifactual secondary to the Midinspiratory study. Marvin Rivas MD Abdomen X-Ray 06/02/17 0000 Signed Impressions: Service Date/Time: May 10:18 - CONCLUSION: NG tip in stomach. Left basilar airspace disease. Elevated right hemidiaphragm. Bowel gas pattern demonstrates mild ileus Tc Varghese MD Liver Ultrasound 05/31/17 1434 Signed Impressions: Service Date/Time: Wednesday, May 31, 2017 14:40 - CONCLUSION: 1. Interval apparent hepatomegaly with diffusely increased hepatic echogenicity. Given the acuity of findings, findings may reflect acute hepatitis or congestive hepatopathy. 2. Persistently contracted gallbladder which accentuates the gallbladder wall with persistent gallbladder wall thickening and trace pericholecystic fluid. These findings are commonly seen in the setting of liver disease although differential considerations include acalculous cholecystitis. HIDA scan may be performed for better evaluation as clinically appropriate. 3. Andrew Kraft MD Lung Scan-V Nuclear Medicine 05/23/17 0000 Signed Impressions: Service Date/Time: Tuesday, May 23, 2017 10:22 - CONCLUSION: Low probability of pulmonary embolism. Buddy Harrison MD FACR Lower Extremity Ultrasound 05/23/17 0000 Signed Impressions: Service Date/Time: Tuesday, May 23, 2017 08:02 - CONCLUSION: Negative for deep venous thrombosis. Buddy Harrison MD FACR Head CT 05/23/17 0000 Signed Impressions: Service Date/Time: Tuesday, May 23, 2017 03:56 - CONCLUSION: 1. Examination quality is degraded by motion artifact. 2. No definite acute finding is identified. There is a 3 mm punctate area of high density in the left frontal periventricular white matter. This could represent small focus of acute blood products. Suggest attention to this on followup imaging. Wiliam Buck MD Brain MRI 05/23/17 0000 Signed Impressions: Service Date/Time: Tuesday, May 23, 2017 15:59 - CONCLUSION: 1. 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 2. No hemorrhage observe. 3. Pansinus disease. Rudy Cervantes Jr., MD Aorta CTA 05/23/17 0000 Signed Impressions: Service Date/Time: Tuesday, May 23, 2017 03:58 - CONCLUSION: 1. 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 The dissection extends to the abdominal aorta and terminates in the common iliac arteries bilaterally. The abdominal vessels arise from both the true and false lumens and demonstrate good opacification. Suggest correlating with the patient's prior imaging study which documents the dissection. 2. 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 3. There is stranding of the periaortic fat adjacent to the arch aneurysm. 4. There are small bilateral pleural effusions, left larger than right, with bilateral volume loss and/or airspace consolidation bilaterally. Wiliam Buck MD Abdomen Ultrasound 05/23/17 0000 Signed Impressions: Service Date/Time: Tuesday, May 23, 2017 17:22 - CONCLUSION: 1. Gall bladder wall thickening and possible pericholecystic fluid without evidence of gallstones. May consider perform hepatic biliary tract scan to evaluate for acalculous cholecystitis. 2. No focal abnormality seen within the liver. Rudy Pollock MD Objective Remarks GENERAL: This is a 36-year-old well-developed well-nourished AA male resting in bed orotracheally intubated, and sedated SKIN: Warm and dry, adequately perfused. HEAD: Normocephalic. EYES: Pupils 3 mm and reactive. No scleral icterus. No injection or drainage. NECK: Supple, trachea midline. No JVD or lymphadenopathy. Left IJ CVL is clean dry and intact CARDIOVASCULAR: Distant. RRR. S1, S2 no S4. Cannot appreciate murmurs, clicks , gallops or rubs RESPIRATORY: Coarse rhonchorous crackles noted throughout all lung [place] anterior-posterior bilaterally. No wheezing GASTROINTESTINAL: Abdomen soft, non-tender, nondistended. Hypoactive bowel sounds are appreciated MUSCULOSKELETAL: No cyanosis. Edema 2+ bilateral upper and lower extremities NEURO: Currently sedated on Versed, propofol and fentanyl drips. Positive gag and corneal reflex. Positive cough. 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 On Fentanyl, Propofol, Precedex drip infusion for sedation and to maintain ventilator synchrony. Goal of RASS -2 Daily sedation vacation Acetaminophen 650 mg by tube every 6 hours as needed fever discontinued due to elevated transaminases Evaluated by neurology/Dr. Espinosa MRI brain 05/23 revealed bilateral frontal embolic CVA CT brain: There is a 3 mm punctate area of high density in the left frontal periventricular white matter. This could represent small focus of acute blood products. EEG : Mild diffuse encephalopathy, no seizure activity Continue aspirin 162 mg p.o. daily. Okayed with neurology. CV: Hypertensive emergency Acute type B aortic dissection Elevated troponin PEA cardiac arrest 05/23/17, secondary to obstructive sleep apnea/obesity hypoventilation syndrome with Bipap nonadherence. CTA stable. VQ scan negative . Hyperlipidemia Monitor HR and BP keep MAP>65mmHg Wean off Labetalol drip Currently on carvedilol 25 mg twice daily Diltiazem 90 mg every 6 hours Clonidine 0.3 mg every 8 hours Repeat echo 05/23: EF 60-65%, no RWMA Evaluated by cardiology, Dr. Bhakta on 05/24 due to troponin elevation. He attributed elevated troponin to PEA arrest, hypoxia, renal insufficiency. No further ischemic workup planned at this time. 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 The dissection extends to the abdominal aorta and terminates in the common iliac arteries bilaterally. The abdominal vessels arise from both the true and false lumens and demonstrate good opacification. Vascular surgery is following- Dr. Guzman Pulm: Obstructive sleep apnea Obesity hypoventilation syndrome Acute hypercapnic respiratory failure intubated 05/30 Ventilator dependent respiratory failure PRVC RR 16, TV 500, IT:1.0, PEEP:8, FIO2: 40%, Ventilator bundle Bronchodilators, DuoNeb Q4, Mucomyst nebs Solumedrol 40mg IV daily Check ABG V/Q scan: low prob PE s/p bronch showed mucous plugs/ thick secretions b/l, normal mucosa, no evidence of EBL, BAL performed RUL. Status post bronchoscopy 05/30 revealed no mucus plugging. Normal bronchial mucosa without lesions. No signs of bleeding. LEN negative Consulted general surgery for tracheostomy- scheduled for 06/[address] Muhammad Renal/: Nonoliguric acute kidney injury Rhabdo Electrolyte derangement Likely secondary to ischemic ATN following cardiac arrest. Strict intake output, monitor and replete electrolytes, follow BUN/creatinine Renal is following- Dr. Flannery US abdomen: No hydronephrosis. On free water 250ml Q8, monitor sodium level. GI: Elevated transaminases Hypoalbuminemia Hyperammonia Continue Nepro @ 55ml/hr-no residuals Famotidine 10 mg BID for GI prophylaxis Docusate/senna 1 tablet twice daily, polyethylene glycol 17 g twice daily and lactulose 30 cc twice daily for bowel regimen. Monitor LFT's (trending down),Hep profile is negative Abdominal ultrasound 05/31 -market hepatic congestion. Contracted gallbladder with pericholecystic fluid. Possible acalculous cholecystitis recommend HIDA scan if clinically able. US abdomen: Gall bladder wall thickening and possible pericholecystic fluid without evidence of gallstones. Recommend HIDA scan if clinically indicated Lactulose 30 cc 4 times daily. GI following. Scheduled for PEG on 06/17 with GI. Heme: Persistent Leukocytosis Microcytic anemia Monitor CBC, for transfusion 1u PRBC today for Hgb 7.7 VQ scan negative 05/23 BLE u/s negative for DVT 05/23 ID: MSSA pneumonia Abx per ID ( On Cefepime) Monitor for signs of infections ( Fever, WBC) ID is following- , follow up on sputum and urine cxs Pertinent: C-diff PCR negative on 06/04 and 06/09 06/08 -sputum -normal resp lizzie 05/31/13 -blood cultures 2 -pending 05/30 -bronchoscopy -no growth 05/30 -sputum -rare WBC/budding yeast 05/30 -blood cultures 2 -pending 05/25 -blood cultures 2 -no growth to date 05/25 -urine culture -no growth to date 05/23 -sputum -MSSA 05/23 -blood cultures 2 -no growth to date Endo: SSI ( medium scale) NovUlin R medium regimen every 6 hours sliding scale. Levemir 7u Q12 TSH 2.3 PROPH: SCDs hold /Heparin subcut for anemia requiring blood transfusion and Hemoccult positive ACCESS Left IJ CVL placed 05/31 Discussed with patient's by phone on 06/16. I explained need for tracheostomy and PEG tube and she voiced understanding and was agreeable. Consulted GI and general surgery for PEG and tracheostomy which are scheduled for 06/17. Condition remains critical Time spent on critical care excluding procedures 30 minutes Paul Arango MD Jun 17, 2017 11:09
[2017-06-17] MEDS ORDERED: VECURONIUM BROMIDE 20 MG VIAL IV ONE (12:00)
[2017-06-17] MEDS ORDERED: PROPOFOL 200 MG/20 ML AMP IV ONE (12:00)
[2017-06-17] MEDS ORDERED: ROCURONIUM INJ 50 MG/5 ML SYRINGE IV PUSH ONE (12:00)
[2017-06-17] MEDS ORDERED: LACTATED RINGER'S 1000 ML INJ 2,000 ML IV ONE (12:00)
[2017-06-17] MEDS ORDERED: ceFAZolin INJ 1,000 MG VIAL IV ONE (12:00)
[2017-06-17] MEDS ORDERED: STERILE WATER FOR INJECTION 20 ML VIAL IV ONE (12:00)
[2017-06-17] MEDS ORDERED: PHENYLEPH/NS 1000 MCG/10 ML SYR IV ONE (12:00)
[2017-06-17] MEDS ORDERED: ePHEDrine/NS 25 MG/5 ML SYRINGE IV ONE (12:00)
--- NOTE | 2017-06-17 12:12 | PD.PROCEDR ---
GI Procedure PROCEDURE PERFORMED EGD INDICATION FOR PROCEDURE Respiratory failure, dysphagia, needing a PEG tube PROCEDURE: The procedure, risks and benefits were discussed with Mr. Lai and informed consent was obtained. Anesthesia sedated him with Diprivan. He was placed in the left lateral decubitus position. EGD: The Pentax videoscope was introduced through the oropharynx and advanced to the second portion of the duodenum under direct visualization. Retroflexion was performed in the stomach. FINDINGS: The esophagus this was normal The stomach there was still some residual contents in the stomach filling about a third of the stomach which would make it difficult to place a PEG tube today but also as I insufflated the stomach I was unable to obtain transillumination for safe placement of a PEG tube I could obtain some mild indentation but that is not going to be sufficient for PEG tube placement otherwise gastric mucosa was unremarkable The duodenum this was normal ESTIMATED BLOOD LOSS: None SPECIMENS REMOVED: None COMPLICATIONS: None IMPRESSION: Incomplete evaluation due to the presence of content in the stomach Unsuccessful PEG placement due to obesity PLAN: Recommend IR for PEG tube placement We will sign off Connor Pineda MD Jun 17, 2017 12:12
[2017-06-17] MEDS ORDERED: IOHEXOL 350 MG/ML 50 ML BTL (for RAD DIAG) G-TUBE ONE (14:25)
--- NOTE | 2017-06-17 14:45 | PD.RAD ---
Post Procedure Progress Note Pre Procedure Diagnosis: (1) Dissection of aorta, thoracoabdominal (2) Embolic cerebral infarction Post Procedure Diagnosis: (1) Embolic cerebral infarction (2) Dissection of aorta, thoracoabdominal Procedure Date: Jun 17, 2017 Supervising Radiologist: Rodrigue Miller Proceduralist/Assist: Bill Pugh, RT(R), Rebecca Varner RT(R) Anesthesia: Local Plan of Activity Patient to Unit: Critical Care Patient Condition: Poor See PACS Report for procedural detail/treatment Feeding Tube Gastrostomy Placement Maltese: 18 Rodrigue Miller MD Jun 17, 2017 14:45
--- NOTE | 2017-06-17 14:54 | HHI.NPPN ---
Subjective History of Present Illness 36 year old with Aortic dissection ARF Additional Remarks Patient post trach/PEG Objective Data Data 06/17/17 06/18/17 19:00 07:00 Intake Total 1100 ml Balance 1100 ml Other 1100 ml Vital Signs Date Time Temp Pulse Resp B/P (MAP) Pulse Ox O2 Delivery O2 Flow Rate FiO2 06/17/17 13:16 97.2 66 18 95/52 (66) 97 06/17/17 12:59 97 40 06/17/17 10:23 100 100 06/17/17 10:00 67 06/17/17 09:41 100 40 06/17/17 08:00 68 06/17/17 08:00 40 06/17/17 08:00 97.8 68 24 119/64 (82) 100 06/17/17 06:00 73 06/17/17 04:00 67 06/17/17 04:00 40 06/17/17 04:00 97.6 67 125/65 (85) 100 06/17/17 03:49 100 40 06/17/17 02:00 68 06/17/17 00:00 98.5 71 116/61 (79) 99 06/17/17 00:00 40 06/17/17 00:00 71 06/16/17 22:00 72 06/16/17 21:30 100 40 06/16/17 20:00 70 06/16/17 20:00 98.3 70 0 113/59 (77) 99 06/16/17 20:00 40 06/16/17 18:00 68 06/16/17 16:00 69 06/16/17 16:00 40 06/16/17 16:00 98.7 69 123/64 (83) 94 06/16/17 15:53 96 40 -: 06/16/17 0952 06/16/17 0952 Physical Exam General Appearance: Well Developed Eyes Eye Exam: Pupils Equal Neck Neck Exam: Neck Supple Pulmonary Resp Exam: Rhonchi Cardiology CV Exam: Tachycardia Gastrointestinal/Abdomen GI Exam: Soft, Non-Tender Genitourinary Exam: Clear Urine Integumentary Skin Exam: Intact Extremeties Extremities Exam: Moderate Edema, Pitting Edema, Dependent Edema Assessment/Plan Problem List: (1) Acute renal failure ICD Codes: N17.9 - Acute kidney failure, unspecified Plan: He has large dissection of aorta continue to monitor he is passing urine , creatinine he did receive IV contrast repeat CTA Dissection up to Common Iliac arteries seen with true and false lumen perfused Cr 5.6-> 5.7 -> 5.7 -> 5.3 -> 5 -> 4.4-. 3.9-> 3.5 ->3.16-> 2.74 -> 2.8->2.8-> 2.4 non oliguric, off diuretics off IVF water 250 ml q 8 Sodium 147 PRBC/Lasix given UOP 3.6 L BUN increased slightly stable K normal remains intubated Patient has good urine out. Pseudomonas on Cefepime (2) Dissection of aorta, thoracoabdominal ICD Codes: I71.03 - Dissection of thoracoabdominal aorta Status: Acute Plan: vascular is following Renal arteries remains perfused Roz Flannery MD Jun 17, 2017 14:54
--- NOTE | 2017-06-17 15:29 | HHI.PR ---
cc: Tc Muhammad MD Immediate Post Op Note Procedure Date: Jun 17, 2017 Pre Op Diagnosis: (1) Ventilator dependent (2) Dyspnea Post Op Diagnosis: (1) Status post tracheostomy (2) Ventilator dependent Surgeon: Tc Muhammad Card Grinder Helper(s): see or records Procedure: trach and bronch Anesthesia: General Drains: None IVF Patient to: PACU Patient Condition: Fair Implant/Devices: SEE IMPLANT LOG (if applicable) Date/Time of Procedure: SEE SURGICAL CARE RECORD Tc Muhammad MD Jun 17, 2017 15:29
--- NOTE | 2017-06-17 15:45 | HHI.HCPN ---
Reason for visit a. To assist with evaluation and management of symptoms including: dyspnea b. To assist medical decision maker(s) with: better understanding of current medical conditions; weighing benefits/burdens of medical treatment options; making medical treatment decisions. Subjective/Interval History Pt seen to follow up on comfort post procedure. S/p tracheostomy, PEG today, initially off unit when I attempted to see him. Nursing reports overnight w episode of bradycardia 20s-30s with turning on side. No new labs today. Cont to be on fentanyl, propofol and precedex to control SBP. Nursing reports episode of hypotension during OR, BP 60s requiring Levophed, but pt now back to prior status- 120s systolic. PEG placed per IR, GI unable to place due to poor visualization. PT seen in room no visitors present. He is sedated, non responsive to exam. Currently on 200mics/hour fentanyl, propofol 50 mics per kilogram per minute, and Precedex 1 kyler per kilogram per hour. +generalized edema. No distress. New tracheostomy midline to mech vent, no resp distress observed. Following exam call to , VM left. . Advance Directives Living Will: Never completed Health Care Surrogate: Never completed Durable Power of Instructor Of Education: Never completed Objective Vital Signs Date Time Temp Pulse Resp B/P (MAP) Pulse Ox O2 Delivery O2 Flow Rate FiO2 06/17/17 14:51 100 100 06/17/17 13:16 97.2 66 18 95/52 (66) 97 06/17/17 12:59 97 40 06/17/17 10:23 100 100 06/17/17 10:00 67 06/17/17 09:41 100 40 06/17/17 08:00 68 06/17/17 08:00 40 06/17/17 08:00 97.8 68 24 119/64 (82) 100 06/17/17 06:00 73 06/17/17 04:00 67 06/17/17 04:00 40 06/17/17 04:00 97.6 67 125/65 (85) 100 06/17/17 03:49 100 40 06/17/17 02:00 68 06/17/17 00:00 98.5 71 116/61 (79) 99 06/17/17 00:00 40 06/17/17 00:00 71 06/16/17 22:00 72 06/16/17 21:30 100 40 06/16/17 20:00 70 06/16/17 20:00 98.3 70 0 113/59 (77) 99 06/16/17 20:00 40 06/16/17 18:00 68 06/16/17 16:00 69 06/16/17 16:00 40 06/16/17 16:00 98.7 69 123/64 (83) 94 06/16/17 15:53 96 40 Intake & Output 06/17/17 06/17/17 07:00 19:00 Intake Total 2811 ml 1100 ml Output Total 1700 ml Balance 1111 ml 1100 ml IV Total 2100 ml Tube Feeding 211 ml Other 500 ml 1100 ml Output Urine Total 1700 ml # Bowel Movements 2 Physical Exam CONSTITUTIONAL/GENERAL: This is an obese patient sedated on mechanical vent no apparent distress TUBES/LINES/DRAINS: Left subclavian central line, ET tube, OG tube, Ledesma catheter SKIN: No jaundice, rashes, or lesions. No wounds seen anteriorly. Skin warm and dry. 2+ generalized edema HEAD: Atraumatic. Normocephalic. EYES: Pupils equal and round and reactive. No scleral icterus. No injection or drainage. Fundi not examined. ENT: Nose without bleeding or purulent drainage. Unable to examine oropharynx secondary to ET tube, OG tube NECK: Trachea midline. Supple, nontender. No palpable thyroid enlargement or nodularity. CARDIOVASCULAR: Regular rate and rhythm without murmur. Peripheral pulses symmetric. 2+ edema to extremities RESPIRATORY/CHEST: Symmetric, unlabored respirations. Clear to auscultation. Breath sounds equal bilaterally. No wheezes, rales, or rhonchi. GASTROINTESTINAL: Abdomen soft, round, obese , nondistended. No palpable masses. Bowel sounds hypoactive. Tube feed infusing via G-tube GENITOURINARY: Without palpable bladder distension. Ledesma catheter in place. MUSCULOSKELETAL: Extremities without clubbing, cyanosis. No joint effusion noted. No mottling or clubbing. NEUROLOGICAL: Sedated on mechanical vent. Nonresponsive to my exam. No movement of extremities. No eye opening. PSYCHIATRIC: Limited assessment due to clinical condition, no apparent distress , on multiple sedatives Diagnostic Tests Laboratory Laboratory Tests Test 06/14/17 17:35 06/15/17 04:00 3/29/18 09:52 06/17/17 05:00 Hemoglobin 8.3 GM/DL (13.0-17.0) 8.0 GM/DL (13.0-17.0) 8.0 GM/DL (13.0-17.0) Hematocrit 25.0 % (39.0-51.0) 23.4 % (39.0-51.0) 24.8 % (39.0-51.0) Stool C. difficile Toxin (PCR) NEGATIVE (NEGATIVE) Stl C. difficile Toxin Epiderm 027 PRESUMPTIVE NEGATIVE White Blood Count 19.4 TH/MM3 (4.0-11.0) 21.9 TH/MM3 (4.0-11.0) Red Blood Count 2.90 MIL/MM3 (4.50-5.90) 3.02 MIL/MM3 (4.50-5.90) Mean Corpuscular Volume 80.8 FL (80.0-100.0) 82.0 FL (80.0-100.0) Mean Corpuscular Hemoglobin 27.6 PG (27.0-34.0) 26.5 PG (27.0-34.0) Mean Corpuscular Hemoglobin Concent 34.1 % (32.0-36.0) 32.4 % (32.0-36.0) Red Cell Distribution Width 17.0 % (11.6-17.2) 17.1 % (11.6-17.2) Platelet Count 173 TH/MM3 (150-450) 188 TH/MM3 (150-450) Mean Platelet Volume 10.4 FL (7.0-11.0) 10.8 FL (7.0-11.0) Neutrophils (%) (Auto) 82.9 % (16.0-70.0) 81.7 % (16.0-70.0) Lymphocytes (%) (Auto) 7.6 % (9.0-44.0) 9.4 % (9.0-44.0) Monocytes (%) (Auto) 9.3 % (0.0-8.0) 8.5 % (0.0-8.0) Eosinophils (%) (Auto) 0.1 % (0.0-4.0) 0.3 % (0.0-4.0) Basophils (%) (Auto) 0.1 % (0.0-2.0) 0.1 % (0.0-2.0) Neutrophils # (Auto) 16.1 TH/MM3 (1.8-7.7) 17.9 TH/MM3 (1.8-7.7) Lymphocytes # (Auto) 1.5 TH/MM3 (1.0-4.8) 2.1 TH/MM3 (1.0-4.8) Monocytes # (Auto) 1.8 TH/MM3 (0-0.9) 1.9 TH/MM3 (0-0.9) Eosinophils # (Auto) 0.0 TH/MM3 (0-0.4) 0.1 TH/MM3 (0-0.4) Basophils # (Auto) 0.0 TH/MM3 (0-0.2) 0.0 TH/MM3 (0-0.2) CBC Comment AUTO DIFF AUTO DIFF Differential Total Cells Counted 100 100 Neutrophils % (Manual) 88 % (16-70) 80 % (16-70) Lymphocytes % 6 % (9-44) 4 % (9-44) Monocytes % 5 % (0-8) 7 % (0-8) Neutrophils # (Manual) 17.3 TH/MM3 (1.8-7.7) 19.3 TH/MM3 (1.8-7.7) Myelocytes 1 % (0-0) Differential Comment FINAL DIFF MANUAL FINAL DIFF MANUAL Platelet Estimate NORMAL (NORMAL) NORMAL (NORMAL) Platelet Morphology Comment ENLARGED (NORMAL) ENLARGED (NORMAL) Ovalocytes 1+ (NORMAL) 1+ (NORMAL) Blood Urea Nitrogen 97 MG/DL (7-18) 98 MG/DL (7-18) Creatinine 2.56 MG/DL (0.60-1.30) 2.43 MG/DL (0.60-1.30) Random Glucose 214 MG/DL (74-106) 160 MG/DL (74-106) Calcium Level 7.5 MG/DL (8.5-10.1) 7.5 MG/DL (8.5-10.1) Sodium Level 148 MEQ/L (136-145) 147 MEQ/L (136-145) Potassium Level 3.6 MEQ/L (3.5-5.1) 3.7 MEQ/L (3.5-5.1) Chloride Level 114 MEQ/L (98-107) 114 MEQ/L (98-107) Carbon Dioxide Level 23.6 MEQ/L (21.0-32.0) 23.3 MEQ/L (21.0-32.0) Anion Gap 10 MEQ/L (5-15) 10 MEQ/L (5-15) Estimat Glomerular Filtration Rate 35 ML/MIN (>89) 37 ML/MIN (>89) Band Neutrophils % 5 % (0-6) Eosinophils % 1 % (0-4) Metamyelocytes 3 % (0-1) Nucleated Red Blood Cells 2 /100 WBC (0-0) Prothrombin Time 11.2 SEC (9.8-11.6) Prothromb Time International Ratio 1.1 RATIO Result Diagram: 06/16/17 0952 06/16/17951 Procedures 05/23 CODE BLUE: Intubation, radial art line, central line Assessment and Plan Disease Oriented Problem List: (1) Hypertension (2) Obstructive sleep apnea (3) Acute renal failure (4) Dissection of aorta, thoracoabdominal (5) Elevated troponin Symptom Scale: (1) Dyspnea Pertinent Non-Medical Issues Psychosocial: Here visiting the area from [place]--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 . Has 3 children still living at home 6-year-old son, 8-year-old daughter, 17- year-old. 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 Had multiple chronic illnesses which limited his ability to work outside of the home. indicated that he had had frequent doctor's visits and some hospital visits due to heart failure, obstructive sleep apnea. He would fall asleep often during the day. Patient originally from [place], has some family still in [facility]. is from [place], they lived in [place] for some time though have now been living in [place]. Spiritual: Legal: Patient not able to participate in medical decision making secondary to clinical conditions not clear if or when he will regain ability to make decisions. Per [place] statute his would be appropriate legal proxy. Ethical issues impacting care: Important Contacts Nury Lai [phone] . 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 During his course here he suffered PEA arrest, with ROSC. 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 He remains on mechanical vent requiring multiple sedatives for adequate blood pressure control, for medical management of TBAD. Will require tracheostomy and PEG tube for ongoing medical management. Prognosis guarded, very high risk for ongoing complications and decline secondary to prolonged hospital course and multiple acute issues. . Code Status: Full Code Plan * Legal decision maker:Patient not able to participate in medical decision making secondary to clinical conditions not clear if or when he will regain ability to make decisions. Per [place] statute his would be appropriate legal proxy. * Goals: per initial phone meeting with , healthcare proxy. Ms. Lai expresses aggressive goals to continue interventions available to help her 's recovery, including tracheostomy and PEG tube. Ms Lai is open to ongoing discussions as clinical course evolves. * CODE STATUS: Full code * SYMPTOMS: --Dyspnea-patient has been intubated, extubated, reintubated this admission. At some points requiring high levels of ventilator support. History of obstructive sleep apnea though this will likely resolve with tracheostomy placement. Currently breathing comfortably on mechanical ventilator with multiple sedatives in place: Propofol, fentanyl, Precedex. --Anxiety-potential for related to prolonged hospitalization, multiple invasive procedures. Currently appears comfortable on mechanical vent on above- noted sedatives. Will continue to evaluate Palliative care will continue to follow during hospital course as condition evolves, to assist patient/decision-maker with understanding of medical conditions, weighing benefits/burdens of treatment options, for clarification of goals of treatment. Additionally will assist with any symptoms of palliative concern . Attestation To help prompt me to consider important information that might be impacting today's encounter and assessment, information from prior notes written by myself or my colleagues may have been "brought forward" into today's note. My signature on this note, however, is an attestation that I personally performed the exam, history, and/or decision-making noted today, and, unless otherwise indicated, the interactions with patient, family, and staff as well as the review of records all occurred today. I also attest that the listed assessment and stated plan reflect my best clinical judgment today based on the combination of historical information, prior notes, and today's exam/ interactions. When time spent is documented, it refers only to time spent today by the signer, or if indicated, combined time spent today by collaborating physician/nurse practitioner. Jenni Weathers Jun 17, 2017 15:45
--- NOTE | 2017-06-17 15:45 | MP ---
cc: Tc Muhammad MD DATE OF OPERATION: 06/17/2017 DATE OF PROCEDURE: 06/17/2017. PREOPERATIVE DIAGNOSIS: Respiratory failure, in need of a tracheostomy. POSTOPERATIVE DIAGNOSIS: Respiratory failure, in need of a tracheostomy. PROCEDURE PERFORMED: Placement of tracheostomy #8 Diagnostic bronchoscopy ANESTHESIA: General. SURGEON: Dr. Muhammad INDICATIONS: This is a pleasant, unfortunate 36-year-old gentleman. He had an aortic dissection. He has been in the ICU for about a month or so. He needs a tracheostomy because he is on the ventilator. PROCEDURE: The patient was taken to the operating room and placed in supine position after heavy sedation by anesthesia. It is noted that his body habitus is quite large. We extend his neck the best we can. We prep and drape with Betadine. A timeout is done. We made an incision about 2 fingerbreadths above the sternal notch, dissect down through the subcutaneous tissue and cauterize the platysma muscle. I am able to palpate the trachea. The tracer needle is placed in the trachea to confirm placement. We then placed the 18-gauge needle that is supplied with the Blue Rhino kit into the trachea, get good air return. I then place the guidewire. The punch dilator is then placed through the trachea with ease. We then place the introducer, the Blue Rhino to dilate up the tract. The tracheostomy tube is then placed without difficulty. We hook it up to the ventilator. Anesthesia says they have a difficult time ventilating and this is then subsequently removed. We do a bronchoscopy. I can see the julee, so we are in place. I then do a bronchoscopy through the endotracheal tube and can see the julee as well, and I think the tracheostomy tube is just above the endotracheal tube. It may be compressing it somewhat. For this reason, we then withdraw the tracheostomy tube and the endotracheal tube is then withdrawn by Dr. Roth. I then am able to place the tracheostomy tube back in the trachea over the dilator and it is secured into place, again confirming it with the bronchoscopy seeing the julee. There is minimal bleeding. He has good CO2 waveform and oxygenation. We secured the trachea to the skin with a nylon suture at 4 sites. The patient tolerates the procedure, has no immediate postop complications. Tc Muhammad MD JJANNY/FRANKIE , 03:27 PM , 03:44 PM MTD
--- NOTE | 2017-06-17 15:49 | RADRPT ---
EXAM DATE/TIME: 06/17/2017 13:42 [facility] COMPARISON: No previous studies available for comparison. INDICATIONS : Patient with history of CVA in need of G-tube placement. MEDICAL HISTORY : HTN, Heart failure, Sleep apnea SURGICAL HISTORY : Inguinal hernia repair ENCOUNTER: Initial ACUITY: 1 month PAIN SCORE: Nonresponsive. FLUORO TIME: 2.3 minutes IMAGE SERIES: 1 CONTRAST: 30 cc Omnipaque (iohexol) 350 DEVICE(S): 1.) 18 Fr gastrostomy tube PROCEDURE : 1. Limited abdominal ultrasound. 2. Fluoroscopically guided gastrostomy tube placement. 3. Conscious sedation with continuous EKG and oximetry monitoring. The risks, benefits and alternatives to the procedure were explained and verbal and written consent w as obtained. The site was prepped in sterile fashion. Full sterile technique was used, including ca p, mask, sterile gloves and gown and a large sterile sheet. Hand hygiene and 2% chlorhexidine and/or betadine/alcohol prep was utilized per protocol for cutaneous antisepsis. The skin and subcutaneous tissues were infiltrated with local anesthetic solution. Sterile gel and sterile probe cover were u tilized for ultrasound guidance. Ultrasound was used to wendy the position of the liver. The stomach was insufflated with room air. Th ree percutaneous fasteners were placed to secure the anterior gastric wall. A small incision was made between the fasteners. The stomach was accessed with an 18 gauge needle. A n 0.035 wire was advanced into the small bowel. The tract was dilated. The gastrostomy tube was int roduced through a peel-away sheath. The position was confirmed with an injection of contrast. Conscious sedation was performed with the prescribed dosages and duration as above in the presence of an independent trained radiology nurse to assist in the monitoring of the patient. EKG and oximetry remained stable throughout the procedure. The patient tolerated the procedure well and there were n o complications. The patient was sent to post anesthesia recovery in stable condition. CONCLUSION: Uncomplicated gastrostomy tube placement as above. Rodrigue Miller MD on June 17, 2017 at 15:47 Board Certified Radiologist. This report was verified electronically.
[2017-06-18] VITALS (64 sets, daily range): BP systolic 87–142; BP diastolic 50–78; PULSE 52–75; RESP 16–24; TEMP 97.4–98.4; O2SAT 81–100
[2017-06-18] MEDS: PROPOFOL 1000 MG/100 ML INJ 100 ML IV PRN ×8 (01:00→22:47)
[2017-06-18] MEDS: CEFEPIME INJ 2,000 MG in SODIUM CHLORIDE 0.9% INJ 100 ML IV SCH ×3 (01:17→23:08)
[2017-06-18] MEDS: DILTIAZEM HCL 90 MG TAB PO SCH ×5 (01:17→23:08)
[2017-06-18] MEDS: LABETALOL IV PRN ×6 (01:18→08:36)
[2017-06-18] MEDS: NS IV PRN ×6 (01:18→08:36)
[2017-06-18] MEDS: hydrALAZINE HCL 50 MG TAB OG-TUBE SCH ×4 (01:24→19:17)
[2017-06-18] MEDS: CHLORHEXIDINE GLUCONATE 2 % 1 PACK (2 CLOTHS) TOP SCH (03:09)
[2017-06-18 05:43] LABS: AUTOMATED NEUTROPHIL # 19.4 TH/MM3 (1.8-7.7); BASOPHIL # 0.1 TH/MM3 (0-0.2); BASOPHIL % 0.2 % (0.0-2.0); EOSINOPHIL # 0.1 TH/MM3 (0-0.4); EOSINOPHIL % 0.2 % (0.0-4.0); HEMATOCRIT 22.9 % (39.0-51.0); HEMOGLOBIN 7.4 GM/DL (13.0-17.0); LYMPH % 8.8 % (9.0-44.0); LYMPHOCYTE # 2.1 TH/MM3 (1.0-4.8); MEAN CELL VOLUME 82.6 FL (80.0-100.0); MEAN CORPUSCULAR HEMOGLOBIN 26.8 PG (27.0-34.0); MEAN CORPUSCULAR HGB CONC 32.5 % (32.0-36.0); MEAN PLATELET VOLUME 10.5 FL (7.0-11.0); MONO % 8.2 % (0.0-8.0); MONOCYTE # 1.9 TH/MM3 (0-0.9); NEUT % 82.6 % (16.0-70.0); PLATELET COUNT 189 TH/MM3 (150-450); RED BLOOD COUNT 2.77 MIL/MM3 (4.50-5.90); RED CELL DISTRIBUTION WIDTH 17.2 % (11.6-17.2); WHITE BLOOD COUNT 23.5 TH/MM3 (4.0-11.0)
[2017-06-18] MEDS: FREE WATER G-TUBE SCH ×3 (06:00→19:20)
[2017-06-18] MEDS: INSULIN NovoLIN REGULAR SUPPLEMENTAL SCALE SQ SCH ×5 (06:00→23:12)
[2017-06-18] MEDS: cloNIDine HCL 0.3 MG TAB PO SCH ×3 (06:07→19:17)
[2017-06-18] MEDS: ARTIFICIAL TEARS OPTH SOLN 15 ML BTL EACH EYE SCH ×3 (06:08→19:20)
[2017-06-18 06:25] LABS: ALBUMIN 1.8 GM/DL (3.4-5.0); ALKALINE PHOSPHATASE 55 U/L (45-117); ALT (GPT) 56 U/L (12-78); AST (GOT) 23 U/L (15-37); BICARBONATE 21.6 MEQ/L (21.0-32.0); BLOOD UREA NITROGEN 97 MG/DL (7-18); CALCIUM 7.3 MG/DL (8.5-10.1); CALCIUM-PROTEIN CORRECTED 8.5 MG/DL (8.5-10.1); CHLORIDE 116 MEQ/L (98-107); GLOMERULAR FILTRATION RATE 44 ML/MIN (>89); GLUCOSE,RANDOM 156 MG/DL (74-106); SODIUM (NA) 148 MEQ/L (136-145); TOTAL BILIRUBIN ADULT 0.6 MG/DL (0.2-1.0); TROPONIN I LESS THAN 0.02 NG/ML (0.02-0.05)
[2017-06-18] MEDS: fentaNYL DRIP 250 ML IV PRN ×2 (07:18→21:56)
[2017-06-18 07:30] LABS: BANDS 6 % (0-6); CORRECTED NUCLEATED RBC 5 /100 WBC (0-0); LYMPHOCYTES 6 % (9-44); MONOCYTES 3 % (0-8); NEUTROPHIL # MANUAL DIFF 21.4 TH/MM3 (1.8-7.7); NUCLEATED RED BLOOD CELL 5 (0-0); POLYS (SEG NEUTROPHILS) 85 % (16-70)
[2017-06-18 07:31] LABS: KERATOCYTES OCC (NORMAL)
[2017-06-18] MEDS: RESP: ALBUTEROL 2.5 MG/3 ML NEB (PRN) NEB ×2 (08:02→19:48)
[2017-06-18] MEDS: SODIUM CHLORIDE 0.9% FLUSH 10 ML FLUSH IV FLUSH SCH (08:36)
[2017-06-18] MEDS: methylPREDNISolone SOD SUCC 40 MG/1 ML VIAL IV PUSH SCH (08:37)
[2017-06-18] MEDS: CARVEDILOL 12.5 MG TAB PO SCH ×2 (08:37→19:20)
[2017-06-18] MEDS: ASPIRIN 81 MG CHEW TAB CHEW SCH (08:37)
[2017-06-18] MEDS: FAMOTIDINE 20 MG TAB PO SCH ×2 (08:37→19:20)
[2017-06-18] MEDS: INSULIN DETEMIR 100 UNITS/ML VIAL SQ SCH ×2 (08:38→20:20)
[2017-06-18] MEDS: CHLORHEXIDINE 0.12% (ORAL KIT) 15 ML CUP MT SCH ×2 (08:38→19:17)
--- NOTE | 2017-06-18 12:46 | HHI.PR ---
Objective Vitals/I&O Vital Signs Date Time Temp Pulse Resp B/P (MAP) Pulse Ox O2 Delivery O2 Flow Rate FiO2 06/18/17 11:23 100 35 06/18/17 09:15 56 97/56 (70) 06/18/17 04:00 98.4 24 Labs Laboratory Tests Test 06/18/17 05:00 06/18/17 10:50 White Blood Count 23.5 Red Blood Count 2.77 Hemoglobin 7.4 Hematocrit 22.9 Mean Corpuscular Volume 82.6 Mean Corpuscular Hemoglobin 26.8 Mean Corpuscular Hemoglobin Concent 32.5 Red Cell Distribution Width 17.2 Platelet Count 189 Mean Platelet Volume 10.5 Neutrophils (%) (Auto) 82.6 Lymphocytes (%) (Auto) 8.8 Monocytes (%) (Auto) 8.2 Eosinophils (%) (Auto) 0.2 Basophils (%) (Auto) 0.2 Neutrophils # (Auto) 19.4 Lymphocytes # (Auto) 2.1 Monocytes # (Auto) 1.9 Eosinophils # (Auto) 0.1 Basophils # (Auto) 0.1 CBC Comment AUTO DIFF Differential Total Cells Counted 100 Neutrophils % (Manual) 85 Band Neutrophils % 6 Lymphocytes % 6 Monocytes % 3 Neutrophils # (Manual) 21.4 Nucleated Red Blood Cells 5 Differential Comment FINAL DIFF MANUAL Platelet Estimate NORMAL Platelet Morphology Comment NORMAL Keratocytes OCC Blood Urea Nitrogen 97 Creatinine 2.10 Random Glucose 156 Total Protein 5.0 Albumin 1.8 Calcium Level 7.3 Alkaline Phosphatase 55 Aspartate Amino Transf (AST/SGOT) 23 Alanine Aminotransferase (ALT/SGPT) 56 Total Bilirubin 0.6 Sodium Level 148 Potassium Level 3.8 Chloride Level 116 Carbon Dioxide Level 21.6 Anion Gap 10 Estimat Glomerular Filtration Rate 44 Protein Corrected Calcium 8.5 Total Creatine Kinase 188 Creatine Kinase MB 3.2 Troponin I LESS THAN 0.02 Blood Gas Puncture Site RT RADIAL Blood Gas Patient Temperature 98.6 Blood Gas HCO3 21 Blood Gas Base Excess -4.8 Blood Gas Oxygen Saturation 93 Arterial Blood pH 7.29 Arterial Blood Partial Pressure CO2 44 Arterial Blood Partial Pressure O2 94 Arterial Blood Oxygen Content 10.0 Arterial Blood Carboxyhemoglobin 1.2 Arterial Blood Methemoglobin 1.6 Blood Gas Hemoglobin 7.5 Oxygen Delivery Device VENTILATOR Blood Gas Ventilator Setting Date/Time Source Procedure Growth Status 06/01/17 00:02 Blood Peripheral Aerobic Blood Culture - Final NO GROWTH IN 5 DAYS Complete 06/01/17 00:02 Blood Peripheral Anaerobic Blood Culture - Final QNS - SEE AEROBE REPORT Complete 06/13/17 07:55 Stool Stool Stool Occult Blood (EILEEN) - Final HEMOCCULT POSITIVE Complete 06/13/17 11:50 Sputum Endotracheal Gram Stain - Final Complete 06/13/17 11:50 Sputum Culture - Final Pseudomonas Aeruginosa Complete 06/13/17 13:40 Urine Catheterized Urine Urine Culture - Final Ruth Albicans Complete Radiology Last 48 hours Impressions Chest X-Ray 06/15/17 0000 Signed Impressions: Service Date/Time: Thursday, June 15, 2017 03:56 - CONCLUSION: Diminished lung volumes and bilateral hazy opacities are again seen. Juancarlos Contreras MD Narrative Exam Trach site appears uncomplicated. There is no dressing above and below the trach to keep his skin from impacting the hard plastic components. I will recommend to nursing that this be performed. He is equal bilateral breath sounds. A/P Assessment and Plan Postop day 1 status post tracheostomy tube placement. No apparent complication. Recommend padding of the skin above and below the plastic tubing of the tracheostomy tube to prevent skin complication. General surgery will sign off. Please call us if needed. Alejandro Lama MD Jun 18, 2017 12:46
[2017-06-18] MEDS: hydrALAZINE HCL 20 MG/ML VIAL IV PUSH PRN ×2 (13:07→18:10)
--- NOTE | 2017-06-18 13:50 | HHI.NPPN ---
Subjective History of Present Illness 36 year old with Aortic dissection ARF Additional Remarks Patient remain on the vent. with Trach. Objective Data Data Vital Signs Date Time Temp Pulse Resp B/P (MAP) Pulse Ox O2 Delivery O2 Flow Rate FiO2 06/18/17 11:23 100 35 06/18/17 09:15 56 97/56 (70) 100 06/18/17 09:03 58 100/58 (72) 100 06/18/17 09:01 57 90/56 (67) 98 06/18/17 09:00 55 96 06/18/17 08:45 58 96/51 (66) 99 06/18/17 08:31 60 106/60 (75) 97 06/18/17 08:30 60 97 06/18/17 08:15 60 113/63 (80) 97 06/18/17 08:04 97 35 06/18/17 08:00 40 06/18/17 08:00 60 122/74 (90) 100 06/18/17 08:00 55 06/18/17 07:45 61 119/69 (86) 100 06/18/17 07:30 61 127/75 (92) 100 06/18/17 07:15 61 126/74 (91) 100 06/18/17 07:00 62 120/68 (85) 100 06/18/17 06:00 63 06/18/17 04:59 100 40 06/18/17 04:00 98.4 66 24 120/65 (83) 100 06/18/17 04:00 40 06/18/17 04:00 66 06/18/17 02:00 66 06/18/17 01:41 98 40 06/18/17 00:00 40 06/18/17 00:00 69 06/18/17 00:00 98.2 69 24 120/56 (77) 99 06/17/17 22:00 64 06/17/17 20:39 99 40 06/17/17 20:00 62 06/17/17 20:00 98.3 62 24 122/59 (80) 100 06/17/17 20:00 40 06/17/17 18:00 60 06/17/17 16:55 60 126/59 (81) 97 06/17/17 16:00 98.4 63 129/63 (85) 96 06/17/17 16:00 40 06/17/17 16:00 63 06/17/17 15:55 62 127/58 (81) 96 06/17/17 15:35 96 40 06/17/17 15:25 64 13 122/56 (78) 96 06/17/17 14:55 71 18 135/63 (87) 100 06/17/17 14:51 100 100 06/17/17 14:40 74 24 148/65 (92) 99 -: 06/18/17 0500 06/18/17 0500 Physical Exam General Appearance Remarks On the vent. Eyes Eye Exam: Pupils Equal Neck Neck Exam: Neck Supple Pulmonary Resp Exam: Rhonchi Cardiology CV Exam: Tachycardia Gastrointestinal/Abdomen GI Exam: Soft, Non-Tender, Distended Genitourinary Exam: Clear Urine Extremeties Extremities Exam: Moderate Edema, Pitting Edema, Dependent Edema Neurologic Neuro Exam: Sedated Assessment/Plan Problem List: (1) Acute renal failure ICD Codes: N17.9 - Acute kidney failure, unspecified Plan: He has large dissection of aorta continue to monitor he is passing urine , creatinine he did receive IV contrast repeat CTA Dissection up to Common Iliac arteries seen with true and false lumen perfused Urine out put is adequate. BP is now better. Creatinine is slightly better 2.1, K is normal. Follow the urine out put and Lasix as needed. (2) Dissection of aorta, thoracoabdominal ICD Codes: I71.03 - Dissection of thoracoabdominal aorta Status: Acute Plan: vascular is following Renal arteries remains perfused Felicia Thornton MD Jun 18, 2017 13:50
--- NOTE | 2017-06-18 14:38 | HHI.CCPN ---
Subjective Remarks/Hospital Course 05/19: Is a 36-year-old male with a history of hypertension who is on vacation from the [place] area who did not take his antihypertensives today because he is on vacation, and was having sexual intercourse when he had sudden onset of severe substernal radiating to the back chest pain earlier today. 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 He was emergently transferred to [facility] the [facility] for further management. I evaluated the patient on arrival to the ICU by EVAC. Patient denies abdominal pain. Still endorses chest pain although this is improving. Patient denies any other symptoms. CT chest abdomen pelvis was reviewed and reviewed with myself and Dr. Guzman and does demonstrate a type B dissection. 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 Initial laboratory evidence demonstrates a lactate of 1.3, creatinine 1.2, normal LFTs. 05/20: On home C Pap. Urine output 30 cc/h currently. Remains on esmolol and labetalol drips. Remains drowsy though arousable. +4.4 L 05/21: Resting comfortably on nasal cannula. Awake and alert currently. Denies any shortness of breath or chest pain currently. 05/22: AAO x3, resting comfortably. 05/23 Patient went into PEA arrest early this morning now sedated with Diprivan and intubated. Off Esmolol drip. 05/24 Patient is sedated with Diprivan and intubated. On Labetolol drip. MRI brain yesterday showed multiple small infracts, no hemorrhage. 05/25 Patient remains intubated and sedated. T: 100.5 last night. Renal function is worsening with Cr: 3.6 from 3.4 and UOP: 2650ml in 24 hrs. 05/26 No events overnight. Sedated and intubated. Afebrile. Cr: 3.62 , UOP: 1950ml in 24 hrs 05/27 Patient was extubated yesterday placed on BIPAP overnight. Cr: 3.42 today , UOP: 1800 ml in 24 hrs 05/28 Extubated yesterday and per report was compliant with Bipap overnight Remains on esmolol drip 200 mcg/kg/min and SBP in 140s. ZULY, probable ATN non- oliguric however I>>0 with significant intake from MIVF as well as 180 mL/hr from esmolol drip. IVF d/c per nephrology and transitioning off esmolol to minimize fluid. uHgo now per my discussion with Dr. Thornton. He is tachypneic, obtained ABG with hypercapnea on simple mask. Placing On Bipap. at bedside requesting eventual transfer to [place], though she realized he is not stable for that yet. 05/29: Remains on BiPAP since 299 with increasing respiratory rates. Will attempt a more aggressive diuresis. We started on esmolol drip due to persistent tachycardia and unable to reach target blood pressure and heart rate requirements. At high risk for reintubation. 05/30: Remained hypotensive overnight. This a.m. desaturated, tachypneic requiring high percent on BiPAP hence intubated by wrapper hand. Will require bronchoscopy this afternoon. Continue with aggressive diuresis. Broad antibiotic coverage. Start tube feeding. The systolic blood pressure better controlled while intubated on propofol and fentanyl drips. 05/31: T-max 102.8. Currently 99.6. FiO2 down to 80%. The same noted elevated transaminases AST of 2674. ALT of 1590. Creatinine is increased to 3.07 to 4.36. +2 L past 24 hours. One bowel movement. Noted prior gallbladder wall thickening on previous ultrasound. We will repeat today Subjective 06/01: T-max 102.5. Currently 98.9. Desaturate overnight resolved currently FiO2 of 80%. 4500 cc urine output. Creatinine continues to rise currently 4.9. CPK currently 6165. We will discontinue propofol with hepatomegaly, rhabdomyolysis possibly indicative propofol infusion syndrome. 06/02 Patient remains intubated and sedated. On Fentanyl, Versed and Nimbex. T: 100.0 at midnight. On PC/AC with PEEP:15, FIO2 50% Renal function continue to decline with Cr: 5.40 from 4.91 and UOP: 2895 ml in 24 hrs 06/03 Patient remains intubated and sedated with Versed, Fentanyl drips. Remains on Nimbex and Flolan. Cr: 5.6 from 5.4 with UOP: 3790 ml in 24 hrs. 06/04:Afebrile. Overnight the patient had an episode of hypotension during the and all sedation was briefly discontinued, then resumed for ventilator synchrony. Clonidine dosage decreased. Patient continues on pressure control mode, and Flolan for adequate oxygenation. Creatinine noted to be 5.7 weight urine output 3220cc/24 hrs. 06/05: Afebrile. This x-ray revealed improving area aeration of the right hemithorax. PEEP decreased this a.m. to 12, patient continues on FiO2 55% and Flolan, planned weaning. Electrolytes currently being replaced. Elevated liver enzymes continue to down trend. 06/06: Respiratory requirements decreasing, patient now on Flolan 10 ng/kg/min with FiO2 at 60%, maintaining O2 saturation 92%. Creatinine continues to down trend. Leukocytosis improving. 06/07: Flolan discontinued, FIO2 65%. Propofol added to maintain ventilator synchrony. Patient currently on 10 mg of Versed and 250 mics of fentanyl. Wound care was consulted for skin breakdown on buttocks secondary to multiple bowel movements, patient continues on Avani bed. 06/08: No acute events overnight. Flolan discontinued greater than 18 hours patient's O2 saturation 97% on FiO2 of 65. FiO2 requirements decreased the patient continues on a PEEP of 12. Free water flushes added to medication regimen secondary to hypernatremia, sodium level 156 today. 06/09 Patient remains sedated and intubated. Afebrile. 06/10 Patient is sedated with Versed, Diprivan and Fentanyl drips, intubated. Afebrile. renal function is improving with Cr: 3.52 from 3.94 06/11 No events overnight. Sedated with Diprivan and Fentanyl drips. Off Versed. renal function continue to improve with Cr:3.16 from 3.52. 06/12 Patient remains intubated placed on CPAP with PS 12, PEEP:5 and FIO2 40%, Cr down 2.74 from 3.16. Afebrile. 06/13 No events overnight. Sedated with Diprivan, Fentanyl and on Precedex. Placed on labetalol yesterday 9mg. Afebrile. 06/14 No events overnight. Remains sedated and intubated, labetalol drip 5mg. Cr : 2.80. FOr transfusions 1unit PRBC fot Hgb 6.7 this morning. 06/15: Sedated, orally intubated on mechanical ventilation. 06/16: Remains sedated, orally intubated on mechanical ventilation. PEEP +8 FiO2 40%. Consulted GI and general surgery for PEG and tracheostomy. 06/17: Remains sedated, orally intubated on mechanical ventilation. Awaiting tracheostomy and PEG tube today. 06/18: Underwent tracheostomy and G-tube placement yesterday. Had 15 second sinus pause last night. Remains sedated, orally intubated on mechanical ventilation. Objective Vital Signs Date Time Temp Pulse Resp B/P (MAP) Pulse Ox O2 Delivery O2 Flow Rate FiO2 06/18/17 14:00 59 06/18/17 14:00 91/55 (67) 100 06/18/17 12:00 98.3 06/18/17 12:00 40 06/18/17 04:00 24 Intake and Output 06/18/17 06/18/17 06/19/17 08:00 16:00 00:00 Intake Total 120 ml Output Total 1775 ml Balance -1655 ml Result Diagram: 06/18/17 0500 06/18/17 0500 Other Results Laboratory Tests Test 06/18/17 10:50 Blood Gas Puncture Site RT RADIAL Blood Gas Patient Temperature 98.6 Blood Gas HCO3 21 mmol/L (22-26) Blood Gas Base Excess -4.8 mmol/L (-2-2) Blood Gas Oxygen Saturation 93 % (90-100) Arterial Blood pH 7.29 (7.380-7.420) Arterial Blood Partial Pressure CO2 44 mmHg (38-42) Arterial Blood Partial Pressure O2 94 mmHg (61-120) Arterial Blood Oxygen Content 10.0 Vol % (12.0-20.0) Arterial Blood Carboxyhemoglobin 1.2 % (0-4) Arterial Blood Methemoglobin 1.6 % (0-2) Blood Gas Hemoglobin 7.5 G/DL (12.0-16.0) Oxygen Delivery Device VENTILATOR Blood Gas Ventilator Setting Imaging Last Impressions Chest X-Ray 06/13/17 0000 Signed Impressions: Service Date/Time: Tuesday, June 13, 2017 09:52 - CONCLUSION: 1. Midinspiratory exam. The endotracheal tube tip is at the level of the julee. 2. Apparent increase in hazy opacity in both lungs which may represent pulmonary edema or be artifactual secondary to the Midinspiratory study. Marvin Rivas MD Abdomen X-Ray 06/02/17 0000 Signed Impressions: Service Date/Time: May 10:18 - CONCLUSION: NG tip in stomach. Left basilar airspace disease. Elevated right hemidiaphragm. Bowel gas pattern demonstrates mild ileus Tc Varghese MD Liver Ultrasound 05/31/17 1434 Signed Impressions: Service Date/Time: Wednesday, May 31, 2017 14:40 - CONCLUSION: 1. Interval apparent hepatomegaly with diffusely increased hepatic echogenicity. Given the acuity of findings, findings may reflect acute hepatitis or congestive hepatopathy. 2. Persistently contracted gallbladder which accentuates the gallbladder wall with persistent gallbladder wall thickening and trace pericholecystic fluid. These findings are commonly seen in the setting of liver disease although differential considerations include acalculous cholecystitis. HIDA scan may be performed for better evaluation as clinically appropriate. 3. Andrew Kraft MD Lung Scan-V Nuclear Medicine 05/23/17 0000 Signed Impressions: Service Date/Time: Tuesday, May 23, 2017 10:22 - CONCLUSION: Low probability of pulmonary embolism. Buddy Harrison MD FACR Lower Extremity Ultrasound 05/23/17 0000 Signed Impressions: Service Date/Time: Tuesday, May 23, 2017 08:02 - CONCLUSION: Negative for deep venous thrombosis. Buddy Harrison MD FACR Head CT 05/23/17 0000 Signed Impressions: Service Date/Time: Tuesday, May 23, 2017 03:56 - CONCLUSION: 1. Examination quality is degraded by motion artifact. 2. No definite acute finding is identified. There is a 3 mm punctate area of high density in the left frontal periventricular white matter. This could represent small focus of acute blood products. Suggest attention to this on followup imaging. Wiliam Buck MD Brain MRI 05/23/17 0000 Signed Impressions: Service Date/Time: Tuesday, May 23, 2017 15:59 - CONCLUSION: 1. 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 2. No hemorrhage observe. 3. Pansinus disease. Rudy Cervantes Jr., MD Aorta CTA 05/23/17 0000 Signed Impressions: Service Date/Time: Tuesday, May 23, 2017 03:58 - CONCLUSION: 1. 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 The dissection extends to the abdominal aorta and terminates in the common iliac arteries bilaterally. The abdominal vessels arise from both the true and false lumens and demonstrate good opacification. Suggest correlating with the patient's prior imaging study which documents the dissection. 2. 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 3. There is stranding of the periaortic fat adjacent to the arch aneurysm. 4. There are small bilateral pleural effusions, left larger than right, with bilateral volume loss and/or airspace consolidation bilaterally. Wiliam Buck MD Abdomen Ultrasound 05/23/17 0000 Signed Impressions: Service Date/Time: Tuesday, May 23, 2017 17:22 - CONCLUSION: 1. Gall bladder wall thickening and possible pericholecystic fluid without evidence of gallstones. May consider perform hepatic biliary tract scan to evaluate for acalculous cholecystitis. 2. No focal abnormality seen within the liver. Rudy Pollock MD Objective Remarks GENERAL: This is a 36-year-old well-developed well-nourished AA male resting in bed, sedated, on mechanical ventilation via tracheostomy SKIN: Warm and dry, adequately perfused. HEAD: Normocephalic. EYES: Pupils 3 mm and reactive. No scleral icterus. No injection or drainage. NECK: Supple, tracheostomy in place. No JVD or lymphadenopathy. Left IJ CVL is clean dry and intact CARDIOVASCULAR: Distant. RRR. S1, S2 no S4. Cannot appreciate murmurs, clicks , gallops or rubs RESPIRATORY: On mechanical ventilation, Coarse rhonchorous crackles noted throughout all lung [place] anterior-posterior bilaterally. No wheezing GASTROINTESTINAL: Abdomen soft, non-tender, nondistended. G-tube in place. Hypoactive bowel sounds are appreciated MUSCULOSKELETAL: No cyanosis. Edema 2+ bilateral upper and lower extremities NEURO: Currently sedated on Versed, propofol and fentanyl drips. Positive gag and corneal reflex. Positive cough. 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 On Fentanyl, Propofol, Precedex drip infusion for sedation and to maintain ventilator synchrony. Goal of RASS -2 Daily sedation vacation Acetaminophen 650 mg by tube every 6 hours as needed fever discontinued due to elevated transaminases Evaluated by neurology/Dr. Espinosa MRI brain 05/23 revealed bilateral frontal embolic CVA CT brain: There is a 3 mm punctate area of high density in the left frontal periventricular white matter. This could represent small focus of acute blood products. EEG : Mild diffuse encephalopathy, no seizure activity Continue aspirin 162 mg p.o. daily. Okayed with neurology. CV: Hypertensive emergency Acute type B aortic dissection Elevated troponin PEA cardiac arrest 05/23/17, secondary to obstructive sleep apnea/obesity hypoventilation syndrome with Bipap nonadherence. CTA stable. VQ scan negative . Hyperlipidemia Monitor HR and BP keep MAP>65mmHg Wean off Labetalol drip Currently on carvedilol 25 mg twice daily Diltiazem 90 mg every 6 hours Clonidine 0.3 mg every 8 hours Repeat echo 05/23: EF 60-65%, no RWMA Evaluated by cardiology, Dr. Bhakta on 05/24 due to troponin elevation. He attributed elevated troponin to PEA arrest, hypoxia, renal insufficiency. No further ischemic workup planned at this time. 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 The dissection extends to the abdominal aorta and terminates in the common iliac arteries bilaterally. The abdominal vessels arise from both the true and false lumens and demonstrate good opacification. Vascular surgery is following- Dr. Thomas Thomas: Obstructive sleep apnea Obesity hypoventilation syndrome Acute hypercapnic respiratory failure intubated 05/30 Ventilator dependent respiratory failure PRVC RR 16, TV 500, IT:1.0, PEEP:8, FIO2: 40%, Ventilator bundle Bronchodilators, DuoNeb Q4, Mucomyst nebs Solumedrol 40mg IV daily Check ABG V/Q scan: low prob PE s/p bronch showed mucous plugs/ thick secretions b/l, normal mucosa, no evidence of EBL, BAL performed RUL. Status post bronchoscopy 05/30 revealed no mucus plugging. Normal bronchial mucosa without lesions. No signs of bleeding. LEN negative Consulted general surgery for tracheostomy- scheduled for 06/[address] Muhammad Renal/: Nonoliguric acute kidney injury Rhabdo Electrolyte derangement Likely secondary to ischemic ATN following cardiac arrest. Strict intake output, monitor and replete electrolytes, follow BUN/creatinine Renal is following- Dr. Flannery US abdomen: No hydronephrosis. On free water 250ml Q8, monitor sodium level. GI: Elevated transaminases Hypoalbuminemia Hyperammonia Continue Nepro @ 55ml/hr-no residuals Famotidine 10 mg BID for GI prophylaxis Docusate/senna 1 tablet twice daily, polyethylene glycol 17 g twice daily and lactulose 30 cc twice daily for bowel regimen. Monitor LFT's (trending down),Hep profile is negative Abdominal ultrasound 05/31 -market hepatic congestion. Contracted gallbladder with pericholecystic fluid. Possible acalculous cholecystitis recommend HIDA scan if clinically able. US abdomen: Gall bladder wall thickening and possible pericholecystic fluid without evidence of gallstones. Recommend HIDA scan if clinically indicated Lactulose 30 cc 4 times daily. GI following. Scheduled for PEG on 06/17 with GI. Heme: Persistent Leukocytosis Microcytic anemia Monitor CBC, for transfusion 1u PRBC today for Hgb 7.7 VQ scan negative 05/23 BLE u/s negative for DVT 05/23 ID: MSSA pneumonia Abx per ID ( On Cefepime) Monitor for signs of infections ( Fever, WBC) ID is following- , follow up on sputum and urine cxs Pertinent: C-diff PCR negative on 06/04 and 06/09 06/08 -sputum -normal resp lizzie 05/31/13 -blood cultures 2 -pending 05/30 -bronchoscopy -no growth 05/30 -sputum -rare WBC/budding yeast 05/30 -blood cultures 2 -pending 05/25 -blood cultures 2 -no growth to date 05/25 -urine culture -no growth to date 05/23 -sputum -MSSA 05/23 -blood cultures 2 -no growth to date Endo: SSI ( medium scale) NovUlin R medium regimen every 6 hours sliding scale. Levemir 7u Q12 TSH 2.3 PROPH: SCDs hold /Heparin subcut for anemia requiring blood transfusion and Hemoccult positive ACCESS Left IJ CVL placed 05/31 Discussed with patient's by phone on 06/16. I explained need for tracheostomy and PEG tube and she voiced understanding and was agreeable. Consulted GI and general surgery for PEG and tracheostomy which are scheduled for 06/17. Condition remains critical Time spent on critical care excluding procedures 30 minutes Paul Arango MD Jun 18, 2017 14:38
--- NOTE | 2017-06-18 16:20 | HHI.PR ---
Addendum to Inpatient Note Additional Information pt seen around 2 pm events reviewed with RN full note to follow Nalini Cain MD Jun 18, 2017 16:20
[2017-06-18] MEDS: METOPROLOL TARTRATE 5 MG/5 ML VIAL IV PUSH PRN ×2 (18:33→23:51)
--- NOTE | 2017-06-18 23:54 | HHI.IDPN ---
Subjective Subjective Remarks pt seen around 2 pm delayed entry events reviewed with RN: bradicardic episode and brief assytoly. No CPR pt remains on vent very edematous afebrile Antibiotics cefepime Allergies: Coded Allergies: No Known Allergies (Unverified , 05/19/17) Objective . Vital Signs Date Time Temp Pulse Resp B/P (MAP) Pulse Ox O2 Delivery O2 Flow Rate FiO2 06/18/17 22:00 70 06/18/17 20:00 71 06/18/17 20:00 40 06/18/17 20:00 97.9 71 16 116/59 (78) 100 06/18/17 19:50 100 35 06/18/17 18:30 75 130/62 (84) 100 06/18/17 18:15 70 132/71 (91) 100 06/18/17 18:07 71 142/76 (98) 100 06/18/17 18:00 70 137/78 (97) 100 06/18/17 18:00 71 06/18/17 17:30 67 120/74 (89) 100 06/18/17 17:15 68 114/73 (87) 100 06/18/17 17:00 69 113/73 (86) 100 06/18/17 16:45 68 121/67 (85) 100 06/18/17 16:30 66 116/64 (81) 100 06/18/17 16:15 65 112/59 (76) 100 06/18/17 16:01 65 113/56 (75) 100 06/18/17 16:00 97.4 64 100 06/18/17 16:00 40 06/18/17 16:00 66 06/18/17 15:49 100 35 06/18/17 15:45 60 91/50 (64) 100 06/18/17 15:36 61 87/55 (66) 81 06/18/17 15:30 61 100 06/18/17 15:15 60 94/52 (66) 100 06/18/17 15:00 60 95/51 (66) 100 06/18/17 14:45 60 94/50 (65) 100 06/18/17 14:30 59 93/54 (67) 100 06/18/17 14:15 60 95/50 (65) 100 06/18/17 14:00 59 06/18/17 14:00 59 91/55 (67) 100 06/18/17 13:45 58 88/53 (65) 100 06/18/17 13:30 57 97/54 (68) 100 06/18/17 13:15 57 111/57 (75) 100 06/18/17 13:00 56 126/64 (84) 100 06/18/17 12:45 54 121/61 (81) 100 06/18/17 12:30 54 110/60 (77) 100 06/18/17 12:15 53 108/60 (76) 100 06/18/17 12:00 54 06/18/17 12:00 98.3 54 101/57 (72) 100 06/18/17 12:00 40 06/18/17 11:45 54 112/57 (75) 100 06/18/17 11:30 57 105/63 (77) 100 06/18/17 11:23 100 35 06/18/17 11:15 57 100/58 (72) 100 06/18/17 11:00 53 96/51 (66) 100 06/18/17 10:45 52 97/54 (68) 100 06/18/17 10:30 52 100/57 (71) 100 06/18/17 10:15 52 96/55 (69) 100 06/18/17 10:00 53 96/55 (69) 100 06/18/17 10:00 55 06/18/17 09:45 54 99/56 (70) 100 06/18/17 09:30 54 95/55 (68) 100 06/18/17 09:15 56 97/56 (70) 100 06/18/17 09:03 58 100/58 (72) 100 06/18/17 09:01 57 90/56 (67) 98 06/18/17 09:00 55 96 06/18/17 08:45 58 96/51 (66) 99 06/18/17 08:31 60 106/60 (75) 97 06/18/17 08:30 60 97 06/18/17 08:15 60 113/63 (80) 97 06/18/17 08:04 97 35 06/18/17 08:00 40 06/18/17 08:00 60 122/74 (90) 100 06/18/17 08:00 55 06/18/17 07:45 61 119/69 (86) 100 06/18/17 07:30 61 127/75 (92) 100 06/18/17 07:15 61 126/74 (91) 100 06/18/17 07:00 62 120/68 (85) 100 06/18/17 06:00 63 06/18/17 04:59 100 40 06/18/17 04:00 98.4 66 24 120/65 (83) 100 06/18/17 04:00 40 06/18/17 04:00 66 06/18/17 02:00 66 06/18/17 01:41 98 40 06/18/17 00:00 40 06/18/17 00:00 69 06/18/17 00:00 98.2 69 24 120/56 (77) 99 06/18/17 06/18/17 06/19/17 15:00 23:00 07:00 Intake Total 800 ml 1251 ml Output Total 700 ml Balance 800 ml 551 ml IV Total 800 ml 550 ml Tube Feeding 451 ml Other 250 ml Output Urine Total 700 ml # Bowel Movements 1 . Laboratory Tests Test 06/18/17 05:00 White Blood Count 23.5 TH/MM3 Red Blood Count 2.77 MIL/MM3 Hemoglobin 7.4 GM/DL Hematocrit 22.9 % Mean Corpuscular Volume 82.6 FL Mean Corpuscular Hemoglobin 26.8 PG Mean Corpuscular Hemoglobin Concent 32.5 % Red Cell Distribution Width 17.2 % Platelet Count 189 TH/MM3 Mean Platelet Volume 10.5 FL Neutrophils (%) (Auto) 82.6 % Lymphocytes (%) (Auto) 8.8 % Monocytes (%) (Auto) 8.2 % Eosinophils (%) (Auto) 0.2 % Basophils (%) (Auto) 0.2 % Neutrophils # (Auto) 19.4 TH/MM3 Lymphocytes # (Auto) 2.1 TH/MM3 Monocytes # (Auto) 1.9 TH/MM3 Eosinophils # (Auto) 0.1 TH/MM3 Basophils # (Auto) 0.1 TH/MM3 CBC Comment AUTO DIFF Differential Total Cells Counted 100 Neutrophils % (Manual) 85 % Band Neutrophils % 6 % Lymphocytes % 6 % Monocytes % 3 % Neutrophils # (Manual) 21.4 TH/MM3 Nucleated Red Blood Cells 5 /100 WBC Differential Comment FINAL DIFF MANUAL Platelet Estimate NORMAL Platelet Morphology Comment NORMAL Keratocytes OCC Laboratory Tests Test 06/18/17 05:00 Blood Urea Nitrogen 97 MG/DL Creatinine 2.10 MG/DL Random Glucose 156 MG/DL Total Protein 5.0 GM/DL Albumin 1.8 GM/DL Calcium Level 7.3 MG/DL Alkaline Phosphatase 55 U/L Aspartate Amino Transf (AST/SGOT) 23 U/L Alanine Aminotransferase (ALT/SGPT) 56 U/L Total Bilirubin 0.6 MG/DL Sodium Level 148 MEQ/L Potassium Level 3.8 MEQ/L Chloride Level 116 MEQ/L Carbon Dioxide Level 21.6 MEQ/L Anion Gap 10 MEQ/L Estimat Glomerular Filtration Rate 44 ML/MIN Protein Corrected Calcium 8.5 MG/DL Total Creatine Kinase 188 U/L Creatine Kinase MB 3.2 NG/ML Troponin I LESS THAN 0.02 NG/ML Imaging Last Impressions Gastrostomy Tube Placement 06/17/17 0000 Signed Impressions: Service Date/Time: Saturday, June 17, 2017 13:42 - CONCLUSION: Uncomplicated gastrostomy tube placement as above. Rodrigue Miller MD Chest X-Ray 06/15/17 0000 Signed Impressions: Service Date/Time: Thursday, June 15, 2017 03:56 - CONCLUSION: Diminished lung volumes and bilateral hazy opacities are again seen. Juancarlos Contreras MD Abdomen X-Ray 06/02/17 0000 Signed Impressions: Service Date/Time: May 10:18 - CONCLUSION: NG tip in stomach. Left basilar airspace disease. Elevated right hemidiaphragm. Bowel gas pattern demonstrates mild ileus Tc Varghese MD Liver Ultrasound 05/31/17 1434 Signed Impressions: Service Date/Time: Wednesday, May 31, 2017 14:40 - CONCLUSION: 1. Interval apparent hepatomegaly with diffusely increased hepatic echogenicity. Given the acuity of findings, findings may reflect acute hepatitis or congestive hepatopathy. 2. Persistently contracted gallbladder which accentuates the gallbladder wall with persistent gallbladder wall thickening and trace pericholecystic fluid. These findings are commonly seen in the setting of liver disease although differential considerations include acalculous cholecystitis. HIDA scan may be performed for better evaluation as clinically appropriate. 3. Andrew Kraft MD Lung Scan- Nuclear Medicine 3/5/18 0000 Signed Impressions: Service Date/Time: Tuesday, May 23, 2017 10:22 - CONCLUSION: Low probability of pulmonary embolism. Buddy Harrison MD FACR Lower Extremity Ultrasound 05/23/17 Signed Impressions: Service Date/Time: Tuesday, May 23, 2017 08:02 - CONCLUSION: Negative for deep venous thrombosis. Buddy Harrison MD FACR Head CT 05/23/17 Signed Impressions: Service Date/Time: Tuesday, May 23, 2017 03:56 - CONCLUSION: 1. Examination quality is degraded by motion artifact. 2. No definite acute finding is identified. There is a 3 mm punctate area of high density in the left frontal periventricular white matter. This could represent small focus of acute blood products. Suggest attention to this on followup imaging. Wiliam Buck MD Brain MRI 05/23/17 Signed Impressions: Service Date/Time: Tuesday, May 23, 2017 15:59 - CONCLUSION: 1. 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 2. No hemorrhage observe. 3. Pansinus disease. Rudy Cervantes Jr., MD Aorta CTA 05/23/17 Signed Impressions: Service Date/Time: Tuesday, May 23, 2017 03:58 - CONCLUSION: 1. 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 The dissection extends to the abdominal aorta and terminates in the common iliac arteries bilaterally. The abdominal vessels arise from both the true and false lumens and demonstrate good opacification. Suggest correlating with the patient's prior imaging study which documents the dissection. 2. 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 3. There is stranding of the periaortic fat adjacent to the arch aneurysm. 4. There are small bilateral pleural effusions, left larger than right, with bilateral volume loss and/or airspace consolidation bilaterally. Wiliam Buck MD Abdomen Ultrasound 05/23/17 Signed Impressions: Service Date/Time: Tuesday, May 23, 2017 17:22 - CONCLUSION: 1. Gall bladder wall thickening and possible pericholecystic fluid without evidence of gallstones. May consider perform hepatic biliary tract scan to evaluate for acalculous cholecystitis. 2. No focal abnormality seen within the liver. Rudy Pollock MD Physical Exam CONSTITUTIONAL/GENERAL: This is an adequately nourished patient, sedated int'd on vent TUBES/LINES/DRAINS: SKIN: No jaundice, rashes, or lesions. Skin temperature appropriate. Not diaphoretic. NECK: trach in place EYES: Pupils equal and round and reactive. Extraocular motions intact. No scleral icterus. No injection or drainage. Fundi not examined. CARDIOVASCULAR: Regular rate and rhythm without murmurs, gallops, or rubs. No JVD. Peripheral pulses symmetric. RESPIRATORY/CHEST: Symmetric, unlabored respirations. few scattered rhonchi to auscultation. Breath sounds equal bilaterally. GASTROINTESTINAL: Abdomen soft, non-tender, nondistended. No hepato-splenomegaly , or palpable masses. No guarding. Bowel sounds present. PEG in place Incontinent of large brown stool GENITOURINARY: Without palpable bladder distension. Ledesma catheter in place with very light yellow urine MUSCULOSKELETAL: Extremities without clubbing, cyanosis, + prominent edema, 3 +, tight No mottling or clubbing. NEUROLOGICAL: sedated PSYCHIATRIC: unable to assess Assessment & Plan Remarks Type B AAA dissection PNA, clx negative, but BAL cw PNA, 24 K WBC growing budding yeast from BAL - doubt clin significance CXR looks worse growing PSAE in the sputum - crawford senstitive except I gent Acute VDRF - failure to wean Non oliguric ARF Fever -resolved Leukocytosis, bandemia - worsening Abx associated ileus , diarrhea - c.diff negative x 3/3 Funguria cont cefepime fu sputum clx fluconazole x 7 days Discussed Condition With Nalini Bliss MD Jun 18, 2017 23:54
[2017-06-19] VITALS (18 sets, daily range): BP systolic 104–137; BP diastolic 53–71; PULSE 66–85; RESP 16–18; TEMP 97.9–98.7; O2SAT 100
[2017-06-19] MEDS: PROPOFOL 1000 MG/100 ML INJ 100 ML IV PRN ×4 (01:42→09:21)
[2017-06-19] MEDS: hydrALAZINE HCL 50 MG TAB OG-TUBE SCH ×4 (01:58→20:00)
[2017-06-19] MEDS: METOPROLOL TARTRATE 5 MG/5 ML VIAL IV PUSH PRN ×11 (01:58→17:40)
[2017-06-19] MEDS: CHLORHEXIDINE GLUCONATE 2 % 1 PACK (2 CLOTHS) TOP SCH (01:59)
--- NOTE | 2017-06-19 03:15 | RADRPT ---
EXAM DATE/TIME: 06/19/2017 02:39 [facility] COMPARISON: CHEST SINGLE AP, June 15, 2017, 3:56. INDICATIONS : Shortness of breath, possible pulmonary disease. MEDICAL HISTORY : Hypertension. Aortic dissection VDRF SURGICAL HISTORY : None. ENCOUNTER: Subsequent ACUITY: 1 month PAIN SCORE: Non-responsive. LOCATION: Bilateral chest FINDINGS: A single view of the chest demonstrates tracheostomy in good position. Left central line in superior vena cava. Bilateral airspace disease slightly improved from June 15. Elevated right hemidiaphragm. CONCLUSION: 1. Bilateral airspace disease improved from June 15. Tracheostomy present. Left IJ line in superior vena cava. Tc Varghese MD on June 19, 2017 at 3:11 Board Certified Radiologist. This report was verified electronically.
[2017-06-19] MEDS: FREE WATER G-TUBE SCH ×3 (04:25→22:00)
[2017-06-19] MEDS: INSULIN NovoLIN REGULAR SUPPLEMENTAL SCALE SQ SCH ×3 (05:36→16:23)
[2017-06-19] MEDS: DILTIAZEM HCL 90 MG TAB PO SCH ×4 (05:43→22:34)
[2017-06-19] MEDS: cloNIDine HCL 0.3 MG TAB PO SCH ×3 (05:43→22:35)
[2017-06-19] MEDS: ARTIFICIAL TEARS OPTH SOLN 15 ML BTL EACH EYE SCH ×3 (05:43→22:36)
[2017-06-19] MEDS: CARVEDILOL 12.5 MG TAB PO SCH ×2 (07:46→22:35)
[2017-06-19] MEDS: FAMOTIDINE 20 MG TAB PO SCH ×2 (07:46→22:34)
[2017-06-19] MEDS: ASPIRIN 81 MG CHEW TAB CHEW SCH (07:46)
[2017-06-19] MEDS: SODIUM CHLORIDE 0.9% FLUSH 10 ML FLUSH IV FLUSH SCH (07:47)
[2017-06-19] MEDS: CHLORHEXIDINE 0.12% (ORAL KIT) 15 ML CUP MT SCH ×2 (07:47→20:00)
[2017-06-19] MEDS: methylPREDNISolone SOD SUCC 40 MG/1 ML VIAL IV PUSH SCH (07:47)
[2017-06-19] MEDS: INSULIN DETEMIR 100 UNITS/ML VIAL SQ SCH ×2 (07:48→22:35)
[2017-06-19] MEDS: fentaNYL DRIP 250 ML IV PRN (07:58)
[2017-06-19 08:12] LABS: AUTOMATED NEUTROPHIL # 19.8 TH/MM3 (1.8-7.7); BASOPHIL % 0.1 % (0.0-2.0); EOSINOPHIL # 0.1 TH/MM3 (0-0.4); EOSINOPHIL % 0.4 % (0.0-4.0); HEMATOCRIT 23.2 % (39.0-51.0); HEMOGLOBIN 7.4 GM/DL (13.0-17.0); LYMPH % 9.5 % (9.0-44.0); LYMPHOCYTE # 2.3 TH/MM3 (1.0-4.8); MEAN CELL VOLUME 83.5 FL (80.0-100.0); MEAN CORPUSCULAR HEMOGLOBIN 26.7 PG (27.0-34.0); MEAN PLATELET VOLUME 10.6 FL (7.0-11.0); MONOCYTE # 1.7 TH/MM3 (0-0.9); PLATELET COUNT 203 TH/MM3 (150-450); RED BLOOD COUNT 2.78 MIL/MM3 (4.50-5.90); RED CELL DISTRIBUTION WIDTH 18.3 % (11.6-17.2); WHITE BLOOD COUNT 23.9 TH/MM3 (4.0-11.0)
[2017-06-19 08:39] LABS: ALBUMIN 2.1 GM/DL (3.4-5.0); ALKALINE PHOSPHATASE 65 U/L (45-117); ALT (GPT) 59 U/L (12-78); AST (GOT) 39 U/L (15-37); BICARBONATE 22.9 MEQ/L (21.0-32.0); BLOOD UREA NITROGEN 109 MG/DL (7-18); CALCIUM 7.6 MG/DL (8.5-10.1); CHLORIDE 114 MEQ/L (98-107); CREATININE 2.37 MG/DL (0.60-1.30); GLOMERULAR FILTRATION RATE 38 ML/MIN (>89); GLUCOSE,RANDOM 120 MG/DL (74-106); SODIUM (NA) 145 MEQ/L (136-145); TOTAL BILIRUBIN ADULT 0.6 MG/DL (0.2-1.0); TOTAL PROTEIN 5.7 GM/DL (6.4-8.2)
[2017-06-19 09:18] LABS: BANDS 5 % (0-6); CORRECTED NUCLEATED RBC 7 /100 WBC (0-0); LYMPHOCYTES 5 % (9-44); METAMYELOCYTES 2 % (0-1); MONOCYTES 7 % (0-8); MYELOCYTES 1 % (0-0); NUCLEATED RED BLOOD CELL 7 (0-0); POLYS (SEG NEUTROPHILS) 80 % (16-70)
[2017-06-19 09:19] LABS: BURR CELLS 1+ (NORMAL); KERATOCYTES OCC (NORMAL)
[2017-06-19] MEDS: hydrALAZINE HCL 20 MG/ML VIAL IV PUSH PRN ×3 (10:01→17:39)
[2017-06-19] MEDS: LABETALOL IV PRN ×12 (10:28→22:00)
[2017-06-19] MEDS: NS IV PRN ×12 (10:28→22:00)
[2017-06-19] MEDS ORDERED: FUROSEMIDE 40 MG/4 ML VIAL IV PUSH ONE (11:15)
[2017-06-19] MEDS: CEFEPIME INJ 2,000 MG in SODIUM CHLORIDE 0.9% INJ 100 ML IV SCH ×2 (11:24→22:34)
--- NOTE | 2017-06-19 16:10 | HHI.CCPN ---
Subjective Remarks/Hospital Course 05/19: Is a 36-year-old male with a history of hypertension who is on vacation from the [place] area who did not take his antihypertensives today because he is on vacation, and was having sexual intercourse when he had sudden onset of severe substernal radiating to the back chest pain earlier today. 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 He was emergently transferred to [facility] for further management. I evaluated the patient on arrival to the ICU by EVAC. Patient denies abdominal pain. Still endorses chest pain although this is improving. Patient denies any other symptoms. CT chest abdomen pelvis was reviewed and reviewed with myself and Dr. Guzman and does demonstrate a type B dissection. 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 Initial laboratory evidence demonstrates a lactate of 1.3, creatinine 1.2, normal LFTs. 05/20: On home C Pap. Urine output 30 cc/h currently. Remains on esmolol and labetalol drips. Remains drowsy though arousable. +4.4 L 05/21: Resting comfortably on nasal cannula. Awake and alert currently. Denies any shortness of breath or chest pain currently. 05/22: AAO x3, resting comfortably. 05/23 Patient went into PEA arrest early this morning now sedated with Diprivan and intubated. Off Esmolol drip. 05/24 Patient is sedated with Diprivan and intubated. On Labetolol drip. MRI brain yesterday showed multiple small infracts, no hemorrhage. 05/25 Patient remains intubated and sedated. T: 100.5 last night. Renal function is worsening with Cr: 3.6 from 3.4 and UOP: 2650ml in 24 hrs. 05/26 No events overnight. Sedated and intubated. Afebrile. Cr: 3.62 , UOP: 1950ml in 24 hrs 05/27 Patient was extubated yesterday placed on BIPAP overnight. Cr: 3.42 today , UOP: 1800 ml in 24 hrs 05/28 Extubated yesterday and per report was compliant with Bipap overnight Remains on esmolol drip 200 mcg/kg/min and SBP in 140s. ZULY, probable ATN non- oliguric however I>>0 with significant intake from MIVF as well as 180 mL/hr from esmolol drip. IVF d/c per nephrology and transitioning off esmolol to minimize fluid. Hugo now per my discussion with Dr. Thornton. He is tachypneic, obtained ABG with hypercapnea on simple mask. Placing On Bipap. at bedside requesting eventual transfer to [place], though she realized he is not stable for that yet. 05/29: Remains on BiPAP since 299 with increasing respiratory rates. Will attempt a more aggressive diuresis. We started on esmolol drip due to persistent tachycardia and unable to reach target blood pressure and heart rate requirements. At high risk for reintubation. 05/30: Remained hypotensive overnight. This a.m. desaturated, tachypneic requiring high percent on BiPAP hence intubated by park warden. Will require bronchoscopy this afternoon. Continue with aggressive diuresis. Broad antibiotic coverage. Start tube feeding. The systolic blood pressure better controlled while intubated on propofol and fentanyl drips. 05/31: T-max 102.8. Currently 99.6. FiO2 down to 80%. The same noted elevated transaminases AST of 2674. ALT of 1590. Creatinine is increased to 3.07 to 4.36. +2 L past 24 hours. One bowel movement. Noted prior gallbladder wall thickening on previous ultrasound. We will repeat today Subjective 06/01: T-max 102.5. Currently 98.9. Desaturate overnight resolved currently FiO2 of 80%. 4500 cc urine output. Creatinine continues to rise currently 4.9. CPK currently 6165. We will discontinue propofol with hepatomegaly, rhabdomyolysis possibly indicative propofol infusion syndrome. 06/02 Patient remains intubated and sedated. On Fentanyl, Versed and Nimbex. T: 100.0 at midnight. On PC/AC with PEEP:15, FIO2 50% Renal function continue to decline with Cr: 5.40 from 4.91 and UOP: 2895 ml in 24 hrs 06/03 Patient remains intubated and sedated with Versed, Fentanyl drips. Remains on Nimbex and Flolan. Cr: 5.6 from 5.4 with UOP: 3790 ml in 24 hrs. 06/04:Afebrile. Overnight the patient had an episode of hypotension during the and all sedation was briefly discontinued, then resumed for ventilator synchrony. Clonidine dosage decreased. Patient continues on pressure control mode, and Flolan for adequate oxygenation. Creatinine noted to be 5.7 weight urine output 3220cc/24 hrs. 06/05: Afebrile. This x-ray revealed improving area aeration of the right hemithorax. PEEP decreased this a.m. to 12, patient continues on FiO2 55% and Flolan, planned weaning. Electrolytes currently being replaced. Elevated liver enzymes continue to down trend. 06/06: Respiratory requirements decreasing, patient now on Flolan 10 ng/kg/min with FiO2 at 60%, maintaining O2 saturation 92%. Creatinine continues to down trend. Leukocytosis improving. 06/07: Flolan discontinued, FIO2 65%. Propofol added to maintain ventilator synchrony. Patient currently on 10 mg of Versed and 250 mics of fentanyl. Wound care was consulted for skin breakdown on buttocks secondary to multiple bowel movements, patient continues on Avani bed. 06/08: No acute events overnight. Flolan discontinued greater than 18 hours patient's O2 saturation 97% on FiO2 of 65. FiO2 requirements decreased the patient continues on a PEEP of 12. Free water flushes added to medication regimen secondary to hypernatremia, sodium level 156 today. 06/09 Patient remains sedated and intubated. Afebrile. 06/10 Patient is sedated with Versed, Diprivan and Fentanyl drips, intubated. Afebrile. renal function is improving with Cr: 3.52 from 3.94 06/11 No events overnight. Sedated with Diprivan and Fentanyl drips. Off Versed. renal function continue to improve with Cr:3.16 from 3.52. 06/12 Patient remains intubated placed on CPAP with PS 12, PEEP:5 and FIO2 40%, Cr down 2.74 from 3.16. Afebrile. 06/13 No events overnight. Sedated with Diprivan, Fentanyl and on Precedex. Placed on labetalol yesterday 9mg. Afebrile. 06/14 No events overnight. Remains sedated and intubated, labetalol drip 5mg. Cr : 2.80. FOr transfusions 1unit PRBC fot Hgb 6.7 this morning. 06/15: Sedated, orally intubated on mechanical ventilation. 06/16: Remains sedated, orally intubated on mechanical ventilation. PEEP +8 FiO2 40%. Consulted GI and general surgery for PEG and tracheostomy. 06/17: Remains sedated, orally intubated on mechanical ventilation. Awaiting tracheostomy and PEG tube today. 06/18: Underwent tracheostomy and G-tube placement yesterday. Had 15 second sinus pause last night. Remains sedated, orally intubated on mechanical ventilation. 06/19: Remains sedated, on mechanical ventilation via tracheostomy. Sedation being titrated off. Objective Vital Signs Date Time Temp Pulse Resp B/P (MAP) Pulse Ox O2 Delivery O2 Flow Rate FiO2 06/19/17 14:48 100 35 06/19/17 12:00 98.6 85 17 137/71 (93) Intake and Output 06/19/17 06/19/17 06/19/17 07:59 15:59 23:59 Intake Total 1600 ml 100 ml Output Total 800 ml Balance 800 ml 100 ml Result Diagram: 06/19/17 0600 06/19/17 0600 Imaging Last Impressions Chest X-Ray 06/13/17 0000 Signed Impressions: Service Date/Time: Tuesday, June 13, 2017 09:52 - CONCLUSION: 1. Midinspiratory exam. The endotracheal tube tip is at the level of the julee. 2. Apparent increase in hazy opacity in both lungs which may represent pulmonary edema or be artifactual secondary to the Midinspiratory study. Marvin Rivas MD Abdomen X-Ray 06/02/17 0000 Signed Impressions: Service Date/Time: May 10:18 - CONCLUSION: NG tip in stomach. Left basilar airspace disease. Elevated right hemidiaphragm. Bowel gas pattern demonstrates mild ileus Tc Varghese MD Liver Ultrasound 05/31/17 1434 Signed Impressions: Service Date/Time: Wednesday, May 31, 2017 14:40 - CONCLUSION: 1. Interval apparent hepatomegaly with diffusely increased hepatic echogenicity. Given the acuity of findings, findings may reflect acute hepatitis or congestive hepatopathy. 2. Persistently contracted gallbladder which accentuates the gallbladder wall with persistent gallbladder wall thickening and trace pericholecystic fluid. These findings are commonly seen in the setting of liver disease although differential considerations include acalculous cholecystitis. HIDA scan may be performed for better evaluation as clinically appropriate. 3. Andrew Kraft MD Lung Scan-VQ Nuclear Medicine 05/23/17 Signed Impressions: Service Date/Time: Tuesday, May 23, 2017 10:22 - CONCLUSION: Low probability of pulmonary embolism. Buddy Harrison MD FACR Lower Extremity Ultrasound 05/23/17 Signed Impressions: Service Date/Time: Tuesday, May 23, 2017 08:02 - CONCLUSION: Negative for deep venous thrombosis. Buddy Harrison MD FACR Head CT 05/23/17 Signed Impressions: Service Date/Time: Tuesday, May 23, 2017 03:56 - CONCLUSION: 1. Examination quality is degraded by motion artifact. 2. No definite acute finding is identified. There is a 3 mm punctate area of high density in the left frontal periventricular white matter. This could represent small focus of acute blood products. Suggest attention to this on followup imaging. Wiliam Buck MD Brain MRI 05/23/17 Signed Impressions: Service Date/Time: Tuesday, May 23, 2017 15:59 - CONCLUSION: 1. 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 2. No hemorrhage observe. 3. Pansinus disease. Rudy Cervantes Jr., MD Aorta CTA 05/23/17 Signed Impressions: Service Date/Time: Tuesday, May 23, 2017 03:58 - CONCLUSION: 1. 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 The dissection extends to the abdominal aorta and terminates in the common iliac arteries bilaterally. The abdominal vessels arise from both the true and false lumens and demonstrate good opacification. Suggest correlating with the patient's prior imaging study which documents the dissection. 2. 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 3. There is stranding of the periaortic fat adjacent to the arch aneurysm. 4. There are small bilateral pleural effusions, left larger than right, with bilateral volume loss and/or airspace consolidation bilaterally. Wiliam Buck MD Abdomen Ultrasound 05/23/17 Signed Impressions: Service Date/Time: Tuesday, May 23, 2017 17:22 - CONCLUSION: 1. Gall bladder wall thickening and possible pericholecystic fluid without evidence of gallstones. May consider perform hepatic biliary tract scan to evaluate for acalculous cholecystitis. 2. No focal abnormality seen within the liver. Rudy Pollock MD Objective Remarks GENERAL: This is a 36-year-old well-developed well-nourished AA male resting in bed, sedated, on mechanical ventilation via tracheostomy SKIN: Warm and dry, adequately perfused. HEAD: Normocephalic. EYES: Pupils 3 mm and reactive. No scleral icterus. No injection or drainage. NECK: Supple, tracheostomy in place. No JVD or lymphadenopathy. Left IJ CVL is clean dry and intact CARDIOVASCULAR: Distant. RRR. S1, S2 no S4. Cannot appreciate murmurs, clicks , gallops or rubs RESPIRATORY: On mechanical ventilation, Coarse rhonchorous crackles noted throughout all lung [place] anterior-posterior bilaterally. No wheezing GASTROINTESTINAL: Abdomen soft, non-tender, nondistended. G-tube in place. Hypoactive bowel sounds are appreciated MUSCULOSKELETAL: No cyanosis. Edema 2+ bilateral upper and lower extremities NEURO: Currently sedated on propofol and fentanyl drips. Positive gag and corneal reflex. Positive cough. 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 On Fentanyl, Propofol drip infusion which are being titrated off. Off Precedex currently. Will use Precedex if needed. Daily sedation vacation Acetaminophen 650 mg by tube every 6 hours as needed fever discontinued due to elevated transaminases Evaluated by neurology/Dr. Espinosa MRI brain 05/23 revealed bilateral frontal embolic CVA CT brain: There is a 3 mm punctate area of high density in the left frontal periventricular white matter. This could represent small focus of acute blood products. EEG : Mild diffuse encephalopathy, no seizure activity Continue aspirin 162 mg p.o. daily. Okayed with neurology. CV: Hypertensive emergency Acute type B aortic dissection Elevated troponin PEA cardiac arrest 05/23/17, secondary to obstructive sleep apnea/obesity hypoventilation syndrome with Bipap nonadherence. CTA stable. VQ scan negative . Hyperlipidemia Monitor HR and BP keep MAP>65mmHg Labetalol drip as needed Currently on carvedilol 25 mg twice daily Diltiazem 90 mg every 6 hours Clonidine 0.3 mg every 8 hours Repeat echo 05/23: EF 60-65%, no RWMA Evaluated by cardiology, Dr. Bhakta on 05/24 due to troponin elevation. He attributed elevated troponin to PEA arrest, hypoxia, renal insufficiency. No further ischemic workup planned at this time. 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 The dissection extends to the abdominal aorta and terminates in the common iliac arteries bilaterally. The abdominal vessels arise from both the true and false lumens and demonstrate good opacification. Vascular surgery is following- Dr. Guzman Pulm: Obstructive sleep apnea Obesity hypoventilation syndrome Acute hypercapnic respiratory failure intubated 05/30 Ventilator dependent respiratory failure PRVC RR 16, TV 500, IT:1.0, PEEP:8, FIO2: 40%, Ventilator bundle Bronchodilators, DuoNeb Q4, Mucomyst nebs Solumedrol 40mg IV daily Check ABG V/Q scan: low prob PE s/p bronch showed mucous plugs/ thick secretions b/l, normal mucosa, no evidence of EBL, BAL performed RUL. Status post bronchoscopy 05/30 revealed no mucus plugging. Normal bronchial mucosa without lesions. No signs of bleeding. LEN negative Consulted general surgery for tracheostomy- scheduled for 06/[address] Muhammad Renal/: Nonoliguric acute kidney injury Rhabdo Electrolyte derangement Likely secondary to ischemic ATN following cardiac arrest. Strict intake output, monitor and replete electrolytes, follow BUN/creatinine Renal is following- Dr. Flannery US abdomen: No hydronephrosis. On free water 250ml Q8, monitor sodium level. GI: Elevated transaminases Hypoalbuminemia Hyperammonia Continue Nepro @ 55ml/hr-no residuals Famotidine 10 mg BID for GI prophylaxis Docusate/senna 1 tablet twice daily, polyethylene glycol 17 g twice daily and lactulose 30 cc twice daily for bowel regimen. Monitor LFT's (trending down),Hep profile is negative Abdominal ultrasound 05/31 -market hepatic congestion. Contracted gallbladder with pericholecystic fluid. Possible acalculous cholecystitis recommend HIDA scan if clinically able. US abdomen: Gall bladder wall thickening and possible pericholecystic fluid without evidence of gallstones. Recommend HIDA scan if clinically indicated Lactulose 30 cc 4 times daily. GI following. Status post G-tube by IR. 06/17 Heme: Persistent Leukocytosis Microcytic anemia Monitor CBC, transfuse to keep hemoglobin above 7 g percent VQ scan negative 05/23 BLE u/s negative for DVT 05/23 ID: MSSA pneumonia Abx per ID ( On Cefepime) Monitor for signs of infections ( Fever, WBC) ID is following- , follow up on sputum and urine cxs Pertinent: C-diff PCR negative on 06/04 and 06/09 06/08 -sputum -normal resp lizzie 05/31/ -blood cultures 2 -pending 05/30 -bronchoscopy -no growth 05/30 -sputum -rare WBC/budding yeast 05/30 -blood cultures 2 -pending 05/25 -blood cultures 2 -no growth to date 05/25 -urine culture -no growth to date 05/23 -sputum -MSSA 05/23 -blood cultures 2 -no growth to date Endo: SSI ( medium scale) NovUlin R medium regimen every 6 hours sliding scale. Levemir 7u Q12 TSH 2.3 PROPH: SCDs, start heparin 5000 units subcutaneously every 8 hourly on 06/19 ACCESS Left IJ CVL placed 05/31 Discussed with patient's by phone on 06/16. I explained need for tracheostomy and PEG tube and she voiced understanding and was agreeable. Consulted GI and general surgery for PEG and tracheostomy which are scheduled for 06/17. Condition remains critical Time spent on critical care excluding procedures 30 minutes Paul Arango MD Jun 19, 2017 16:10
--- NOTE | 2017-06-19 16:45 | HHI.NPPN ---
Subjective History of Present Illness 36 year old with Aortic dissection ARF Additional Remarks Patient remain on the vent. with Trach. now off sedation. Objective Data Data 06/19/17 06/20/17 19:00 07:00 Intake Total 100 ml Balance 100 ml IV Total 100 ml Vital Signs Date Time Temp Pulse Resp B/P (MAP) Pulse Ox O2 Delivery O2 Flow Rate FiO2 06/19/17 14:48 100 35 06/19/17 12:00 98.6 85 17 137/71 (93) 100 06/19/17 12:00 35 06/19/17 11:27 100 35 06/19/17 08:13 100 35 06/19/17 08:00 35 06/19/17 08:00 98.5 81 112/57 (75) 100 06/19/17 06:00 70 06/19/17 04:01 100 35 06/19/17 04:00 98.0 70 18 118/66 (83) 100 06/19/17 04:00 40 06/19/17 04:00 70 06/19/17 02:00 72 06/19/17 00:05 100 35 06/19/17 00:00 97.9 72 16 120/63 (82) 100 06/19/17 00:00 40 06/19/17 00:00 72 06/18/17 22:00 70 06/18/17 20:00 71 06/18/17 20:00 40 06/18/17 20:00 97.9 71 16 116/59 (78) 100 06/18/17 19:50 100 35 06/18/17 18:30 75 130/62 (84) 100 06/18/17 18:15 70 132/71 (91) 100 06/18/17 18:07 71 142/76 (98) 100 06/18/17 18:00 70 137/78 (97) 100 06/18/17 18:00 71 06/18/17 17:30 67 120/74 (89) 100 06/18/17 17:15 68 114/73 (87) 100 06/18/17 17:00 69 113/73 (86) 100 06/18/17 16:45 68 121/67 (85) 100 -: 06/19/17 0600 06/19/17 0600 Physical Exam General Appearance Remarks On the vent. Eyes Eye Exam: Pupils Equal Neck Neck Exam: Neck Supple Pulmonary Resp Exam: Rhonchi Cardiology CV Exam: Tachycardia Gastrointestinal/Abdomen GI Exam: Soft, Non-Tender, Distended Genitourinary Exam: Clear Urine Extremeties Extremities Exam: Moderate Edema, Pitting Edema, Dependent Edema Neurologic Neuro Exam: Sedated Assessment/Plan Problem List: (1) Acute renal failure ICD Codes: N17.9 - Acute kidney failure, unspecified Plan: He has large dissection of aorta continue to monitor he is passing urine , creatinine he did receive IV contrast repeat CTA Dissection up to Common Iliac arteries seen with true and false lumen perfused Urine out put is adequate. BP is now better. Creatinine increase again to 2.3 Given one dose of Lasix, urine out put is adequate. BP is better controlled with multiple meds. Follow the urine out put and Lasix as needed. (2) Dissection of aorta, thoracoabdominal ICD Codes: I71.03 - Dissection of thoracoabdominal aorta Status: Acute Plan: vascular is following Renal arteries remains perfused Felicia Thornton MD Jun 19, 2017 16:45
[2017-06-19] MEDS: HEPARIN SODIUM - SQ 10,000 UNITS/ML VIAL SQ SCH (22:34)
[2017-06-20] VITALS (21 sets, daily range): BP systolic 100–125; BP diastolic 53–64; PULSE 76–96; RESP 17–21; TEMP 98.3–98.8; O2SAT 98–100
[2017-06-20] MEDS: ONDANSETRON HCL 4 MG/2 ML VIAL IV PUSH PRN ×2 (00:23→08:32)
[2017-06-20] MEDS: METOPROLOL TARTRATE 5 MG/5 ML VIAL IV PUSH PRN ×4 (00:53→12:50)
[2017-06-20] MEDS: hydrALAZINE HCL 50 MG TAB OG-TUBE SCH ×4 (02:00→22:23)
[2017-06-20] MEDS: LABETALOL IV PRN ×2 (03:01)
[2017-06-20] MEDS: NS IV PRN ×2 (03:01)
[2017-06-20] MEDS: CHLORHEXIDINE GLUCONATE 2 % 1 PACK (2 CLOTHS) TOP SCH (04:00)
[2017-06-20] MEDS: cloNIDine HCL 0.3 MG TAB PO SCH ×3 (04:51→22:22)
[2017-06-20] MEDS: DILTIAZEM HCL 90 MG TAB PO SCH ×3 (04:51→17:03)
[2017-06-20] MEDS: FREE WATER G-TUBE SCH ×3 (04:51→22:00)
[2017-06-20] MEDS: HEPARIN SODIUM - SQ 10,000 UNITS/ML VIAL SQ SCH ×3 (04:51→22:25)
[2017-06-20] MEDS: ARTIFICIAL TEARS OPTH SOLN 15 ML BTL EACH EYE SCH ×3 (04:52→22:22)
[2017-06-20] MEDS: INSULIN NovoLIN REGULAR SUPPLEMENTAL SCALE SQ SCH ×4 (06:00→17:03)
[2017-06-20] MEDS: LABETALOL INJ 1,000 MG in SODIUM CHLORID 0.9% 500 ML INJ 300 ML IV PRN ×3 (06:59→12:44)
[2017-06-20] MEDS: LABETALOL HCL 100 MG/20 ML VIAL IV PUSH PRN (07:00)
[2017-06-20] MEDS: CARVEDILOL 12.5 MG TAB PO SCH ×2 (08:21→22:22)
[2017-06-20] MEDS: FAMOTIDINE 20 MG TAB PO SCH ×2 (08:21→22:21)
[2017-06-20] MEDS: ASPIRIN 81 MG CHEW TAB CHEW SCH (08:22)
[2017-06-20] MEDS: CHLORHEXIDINE 0.12% (ORAL KIT) 15 ML CUP MT SCH ×2 (08:22→22:24)
[2017-06-20] MEDS: methylPREDNISolone SOD SUCC 40 MG/1 ML VIAL IV PUSH SCH (08:22)
[2017-06-20] MEDS: INSULIN DETEMIR 100 UNITS/ML VIAL SQ SCH ×2 (08:23→22:21)
[2017-06-20] MEDS: SODIUM CHLORIDE 0.9% FLUSH 10 ML FLUSH IV FLUSH SCH (08:23)
[2017-06-20] MEDS: hydrALAZINE HCL 20 MG/ML VIAL IV PUSH PRN ×2 (08:24→10:36)
[2017-06-20] MEDS ORDERED: FUROSEMIDE 40 MG/4 ML VIAL IV PUSH ONE (10:30)
[2017-06-20] MEDS: METOCLOPRAMIDE HCL 10 MG/2 ML VIAL IV SCH ×2 (12:45→22:21)
[2017-06-20] MEDS: CEFEPIME INJ 2,000 MG in SODIUM CHLORIDE 0.9% INJ 100 ML IV SCH (12:50)
--- NOTE | 2017-06-20 13:29 | HHI.NPPN ---
Subjective History of Present Illness 36 year old with Aortic dissection ARF Additional Remarks Patient remain on the vent. with Trach. now off sedation. Objective Data Data Vital Signs Date Time Temp Pulse Resp B/P (MAP) Pulse Ox O2 Delivery O2 Flow Rate FiO2 06/20/17 10:00 80 06/20/17 08:29 98 35 06/20/17 08:00 98.4 86 21 119/64 (82) 100 06/20/17 08:00 35 06/20/17 08:00 86 06/20/17 06:00 90 06/20/17 04:00 83 06/20/17 04:00 98.3 83 17 112/56 (74) 100 06/20/17 04:00 35 06/20/17 03:34 99 35 06/20/17 02:00 96 06/20/17 00:22 100 35 06/20/17 00:00 85 06/20/17 00:00 98.8 85 17 104/53 (70) 100 06/20/17 00:00 35 06/19/17 22:00 85 06/19/17 20:03 100 35 06/19/17 20:00 84 06/19/17 20:00 98.7 84 17 104/53 (70) 100 06/19/17 20:00 35 06/19/17 20:00 66 06/19/17 18:00 85 06/19/17 16:00 83 06/19/17 16:00 35 06/19/17 16:00 98.3 83 17 111/57 (75) 100 06/19/17 14:48 100 35 06/19/17 14:00 83 -: 06/19/17 0600 06/19/17 0600 Physical Exam Eyes Eye Exam: Pupils Equal Neck Neck Exam: Neck Supple Pulmonary Resp Exam: Rhonchi Cardiology CV Exam: Tachycardia Gastrointestinal/Abdomen GI Exam: Soft, Non-Tender, Distended Genitourinary Exam: Clear Urine Extremeties Extremities Exam: Moderate Edema, Pitting Edema, Dependent Edema Neurologic Neuro Exam: Sedated Assessment/Plan Problem List: (1) Acute renal failure ICD Codes: N17.9 - Acute kidney failure, unspecified Plan: He has large dissection of aorta continue to monitor he is passing urine , creatinine he did receive IV contrast repeat CTA Dissection up to Common Iliac arteries seen with true and false lumen perfused Urine out put is adequate. BP is now better. Creatinine yesterday 2.3 Edema Anasarca needs continuos diuresis try Lasix drip Given one dose of Lasix, urine out put is adequate. BP is better controlled with multiple meds. Follow the urine out put and Lasix as needed. (2) Dissection of aorta, thoracoabdominal ICD Codes: I71.03 - Dissection of thoracoabdominal aorta Status: Acute Plan: vascular is following Renal arteries remains perfused Roz Flannery MD Jun 20, 2017 13:29
--- NOTE | 2017-06-20 13:35 | HHI.CCPN ---
Subjective Remarks/Hospital Course 05/19: Is a 36-year-old male with a history of hypertension who is on vacation from the [place] area who did not take his antihypertensives today because he is on vacation, and was having sexual intercourse when he had sudden onset of severe substernal radiating to the back chest pain earlier today. 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 He was emergently transferred to [facility] for further management. I evaluated the patient on arrival to the ICU by EVAC. Patient denies abdominal pain. Still endorses chest pain although this is improving. Patient denies any other symptoms. CT chest abdomen pelvis was reviewed and reviewed with myself and Dr. Guzman and does demonstrate a type B dissection. 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 Initial laboratory evidence demonstrates a lactate of 1.3, creatinine 1.2, normal LFTs. 05/20: On home C Pap. Urine output 30 cc/h currently. Remains on esmolol and labetalol drips. Remains drowsy though arousable. +4.4 L 05/21: Resting comfortably on nasal cannula. Awake and alert currently. Denies any shortness of breath or chest pain currently. 05/22: AAO x3, resting comfortably. 05/23 Patient went into PEA arrest early this morning now sedated with Diprivan and intubated. Off Esmolol drip. 05/24 Patient is sedated with Diprivan and intubated. On Labetolol drip. MRI brain yesterday showed multiple small infracts, no hemorrhage. 05/25 Patient remains intubated and sedated. T: 100.5 last night. Renal function is worsening with Cr: 3.6 from 3.4 and UOP: 2650ml in 24 hrs. 05/26 No events overnight. Sedated and intubated. Afebrile. Cr: 3.62 , UOP: 1950ml in 24 hrs 05/27 Patient was extubated yesterday placed on BIPAP overnight. Cr: 3.42 today , UOP: 1800 ml in 24 hrs 05/28 Extubated yesterday and per report was compliant with Bipap overnight Remains on esmolol drip 200 mcg/kg/min and SBP in 140s. ZULY, probable ATN non- oliguric however I>>0 with significant intake from MIVF as well as 180 mL/hr from esmolol drip. IVF d/c per nephrology and transitioning off esmolol to minimize fluid. Hugo now per my discussion with Dr. Thornton. He is tachypneic, obtained ABG with hypercapnea on simple mask. Placing On Bipap. at bedside requesting eventual transfer to [place], though she realized he is not stable for that yet. 05/29: Remains on BiPAP since 299 with increasing respiratory rates. Will attempt a more aggressive diuresis. We started on esmolol drip due to persistent tachycardia and unable to reach target blood pressure and heart rate requirements. At high risk for reintubation. 05/30: Remained hypotensive overnight. This a.m. desaturated, tachypneic requiring high percent on BiPAP hence intubated by carpet or rug layer helper. Will require bronchoscopy this afternoon. Continue with aggressive diuresis. Broad antibiotic coverage. Start tube feeding. The systolic blood pressure better controlled while intubated on propofol and fentanyl drips. 05/31: T-max 102.8. Currently 99.6. FiO2 down to 80%. The same noted elevated transaminases AST of 2674. ALT of 1590. Creatinine is increased to 3.07 to 4.36. +2 L past 24 hours. One bowel movement. Noted prior gallbladder wall thickening on previous ultrasound. We will repeat today Subjective 06/01: T-max 102.5. Currently 98.9. Desaturate overnight resolved currently FiO2 of 80%. 4500 cc urine output. Creatinine continues to rise currently 4.9. CPK currently 6165. We will discontinue propofol with hepatomegaly, rhabdomyolysis possibly indicative propofol infusion syndrome. 06/02 Patient remains intubated and sedated. On Fentanyl, Versed and Nimbex. T: 100.0 at midnight. On PC/AC with PEEP:15, FIO2 50% Renal function continue to decline with Cr: 5.40 from 4.91 and UOP: 2895 ml in 24 hrs 06/03 Patient remains intubated and sedated with Versed, Fentanyl drips. Remains on Nimbex and Flolan. Cr: 5.6 from 5.4 with UOP: 3790 ml in 24 hrs. 06/04:Afebrile. Overnight the patient had an episode of hypotension during the and all sedation was briefly discontinued, then resumed for ventilator synchrony. Clonidine dosage decreased. Patient continues on pressure control mode, and Flolan for adequate oxygenation. Creatinine noted to be 5.7 weight urine output 3220cc/24 hrs. 06/05: Afebrile. This x-ray revealed improving area aeration of the right hemithorax. PEEP decreased this a.m. to 12, patient continues on FiO2 55% and Flolan, planned weaning. Electrolytes currently being replaced. Elevated liver enzymes continue to down trend. 06/06: Respiratory requirements decreasing, patient now on Flolan 10 ng/kg/min with FiO2 at 60%, maintaining O2 saturation 92%. Creatinine continues to down trend. Leukocytosis improving. 06/07: Flolan discontinued, FIO2 65%. Propofol added to maintain ventilator synchrony. Patient currently on 10 mg of Versed and 250 mics of fentanyl. Wound care was consulted for skin breakdown on buttocks secondary to multiple bowel movements, patient continues on Avani bed. 06/08: No acute events overnight. Flolan discontinued greater than 18 hours patient's O2 saturation 97% on FiO2 of 65. FiO2 requirements decreased the patient continues on a PEEP of 12. Free water flushes added to medication regimen secondary to hypernatremia, sodium level 156 today. 06/09 Patient remains sedated and intubated. Afebrile. 06/10 Patient is sedated with Versed, Diprivan and Fentanyl drips, intubated. Afebrile. renal function is improving with Cr: 3.52 from 3.94 06/11 No events overnight. Sedated with Diprivan and Fentanyl drips. Off Versed. renal function continue to improve with Cr:3.16 from 3.52. 06/12 Patient remains intubated placed on CPAP with PS 12, PEEP:5 and FIO2 40%, Cr down 2.74 from 3.16. Afebrile. 06/13 No events overnight. Sedated with Diprivan, Fentanyl and on Precedex. Placed on labetalol yesterday 9mg. Afebrile. 06/14 No events overnight. Remains sedated and intubated, labetalol drip 5mg. Cr : 2.80. FOr transfusions 1unit PRBC fot Hgb 6.7 this morning. 06/15: Sedated, orally intubated on mechanical ventilation. 06/16: Remains sedated, orally intubated on mechanical ventilation. PEEP +8 FiO2 40%. Consulted GI and general surgery for PEG and tracheostomy. 06/17: Remains sedated, orally intubated on mechanical ventilation. Awaiting tracheostomy and PEG tube today. 06/18: Underwent tracheostomy and G-tube placement yesterday. Had 15 second sinus pause last night. Remains sedated, orally intubated on mechanical ventilation. 06/19: Remains sedated, on mechanical ventilation via tracheostomy. Sedation being titrated off. 06/20: On fentanyl 50 mics per minute otherwise off all other sedation. Opens eyes occasionally not falling commands. Remains on mechanical ventilation via tracheostomy. Objective Vital Signs Date Time Temp Pulse Resp B/P (MAP) Pulse Ox O2 Delivery O2 Flow Rate FiO2 06/20/17 10:00 80 06/20/17 08:29 98 35 06/20/17 08:00 98.4 21 119/64 (82) Intake and Output 06/20/17 06/20/17 06/21/17 08:00 16:00 00:00 Intake Total 540 ml Output Total 850 ml Balance -310 ml Result Diagram: 06/19/17 0600 06/19/17 0600 Imaging Last Impressions Chest X-Ray 06/13/17 0000 Signed Impressions: Service Date/Time: Tuesday, June 13, 2017 09:52 - CONCLUSION: 1. Midinspiratory exam. The endotracheal tube tip is at the level of the julee. 2. Apparent increase in hazy opacity in both lungs which may represent pulmonary edema or be artifactual secondary to the Midinspiratory study. Marvin Rivas MD Abdomen X-Ray 06/02/17 0000 Signed Impressions: Service Date/Time: May 10:18 - CONCLUSION: NG tip in stomach. Left basilar airspace disease. Elevated right hemidiaphragm. Bowel gas pattern demonstrates mild ileus Tc Varghese MD Liver Ultrasound 05/31/17 1434 Signed Impressions: Service Date/Time: Wednesday, May 31, 2017 14:40 - CONCLUSION: 1. Interval apparent hepatomegaly with diffusely increased hepatic echogenicity. Given the acuity of findings, findings may reflect acute hepatitis or congestive hepatopathy. 2. Persistently contracted gallbladder which accentuates the gallbladder wall with persistent gallbladder wall thickening and trace pericholecystic fluid. These findings are commonly seen in the setting of liver disease although differential considerations include acalculous cholecystitis. HIDA scan may be performed for better evaluation as clinically appropriate. 3. Andrew Kraft MD Lung Scan-VQ Nuclear Medicine 05/23/17 Signed Impressions: Service Date/Time: Tuesday, May 23, 2017 10:22 - CONCLUSION: Low probability of pulmonary embolism. Buddy Harrison MD FACR Lower Extremity Ultrasound 05/23/17 Signed Impressions: Service Date/Time: Tuesday, May 23, 2017 08:02 - CONCLUSION: Negative for deep venous thrombosis. Buddy Harrison MD FACR Head CT 05/23/17 Signed Impressions: Service Date/Time: Tuesday, May 23, 2017 03:56 - CONCLUSION: 1. Examination quality is degraded by motion artifact. 2. No definite acute finding is identified. There is a 3 mm punctate area of high density in the left frontal periventricular white matter. This could represent small focus of acute blood products. Suggest attention to this on followup imaging. Wiliam Buck MD Brain MRI 05/23/17 Signed Impressions: Service Date/Time: Tuesday, May 23, 2017 15:59 - CONCLUSION: 1. 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 2. No hemorrhage observe. 3. Pansinus disease. Rudy Cervantes Jr., MD Aorta CTA 05/23/17 Signed Impressions: Service Date/Time: Tuesday, May 23, 2017 03:58 - CONCLUSION: 1. 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 The dissection extends to the abdominal aorta and terminates in the common iliac arteries bilaterally. The abdominal vessels arise from both the true and false lumens and demonstrate good opacification. Suggest correlating with the patient's prior imaging study which documents the dissection. 2. 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 3. There is stranding of the periaortic fat adjacent to the arch aneurysm. 4. There are small bilateral pleural effusions, left larger than right, with bilateral volume loss and/or airspace consolidation bilaterally. Wiliam Buck MD Abdomen Ultrasound 05/23/17 0000 Signed Impressions: Service Date/Time: Tuesday, May 23, 2017 17:22 - CONCLUSION: 1. Gall bladder wall thickening and possible pericholecystic fluid without evidence of gallstones. May consider perform hepatic biliary tract scan to evaluate for acalculous cholecystitis. 2. No focal abnormality seen within the liver. Rudy Pollock MD Objective Remarks GENERAL: This is a 36-year-old well-developed well-nourished AA male resting in bed, sedated, on mechanical ventilation via tracheostomy SKIN: Warm and dry, adequately perfused. HEAD: Normocephalic. EYES: Pupils 3 mm and reactive. No scleral icterus. No injection or drainage. NECK: Supple, tracheostomy in place. No JVD or lymphadenopathy. Left IJ CVL is clean dry and intact CARDIOVASCULAR: Distant. RRR. S1, S2 no S4. Cannot appreciate murmurs, clicks , gallops or rubs RESPIRATORY: On mechanical ventilation, Coarse rhonchorous crackles noted throughout all lung [place] anterior-posterior bilaterally. No wheezing GASTROINTESTINAL: Abdomen soft, non-tender, nondistended. G-tube in place. Hypoactive bowel sounds are appreciated MUSCULOSKELETAL: No cyanosis. Edema 2+ bilateral upper and lower extremities NEURO: Currently sedated on fentanyl drip at 50 mcg/hr. occasionally opens eyes however not following commands.. Positive cough. 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 On Fentanyl. Off Precedex currently. Will use Precedex if needed. Daily sedation vacation Acetaminophen 650 mg by tube every 6 hours as needed fever discontinued due to elevated transaminases Evaluated by neurology/Dr. Espinosa MRI brain 05/23 revealed bilateral frontal embolic CVA CT brain: There is a 3 mm punctate area of high density in the left frontal periventricular white matter. This could represent small focus of acute blood products. EEG : Mild diffuse encephalopathy, no seizure activity Continue aspirin 162 mg p.o. daily. Okayed with neurology. CV: Hypertensive emergency Acute type B aortic dissection Elevated troponin PEA cardiac arrest 05/23/17, secondary to obstructive sleep apnea/obesity hypoventilation syndrome with Bipap nonadherence. CTA stable. VQ scan negative 3 /5. Hyperlipidemia Monitor HR and BP keep MAP>65mmHg Labetalol drip as needed Currently on carvedilol 25 mg twice daily Diltiazem 90 mg every 6 hours Clonidine 0.3 mg every 8 hours Repeat echo 05/23: EF 60-65%, no RWMA Evaluated by cardiology, Dr. Bhakta on 05/24 due to troponin elevation. He attributed elevated troponin to PEA arrest, hypoxia, renal insufficiency. No further ischemic workup planned at this time. 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 The dissection extends to the abdominal aorta and terminates in the common iliac arteries bilaterally. The abdominal vessels arise from both the true and false lumens and demonstrate good opacification. Vascular surgery is following- Dr. Thomas Thomas: Obstructive sleep apnea Obesity hypoventilation syndrome Acute hypercapnic respiratory failure intubated 05/30 Ventilator dependent respiratory failure PRVC RR 16, TV 500, IT:1.0, PEEP:8, FIO2: 40%, Ventilator bundle Bronchodilators, DuoNeb Q4, Mucomyst nebs Stopped Solumedrol 40mg IV daily on 06/20 Check ABG V/Q scan: low prob PE s/p bronch showed mucous plugs/ thick secretions b/l, normal mucosa, no evidence of EBL, BAL performed RUL. Status post bronchoscopy 05/30 revealed no mucus plugging. Normal bronchial mucosa without lesions. No signs of bleeding. LEN negative Status post tracheostomy 06/17 Renal/: Nonoliguric acute kidney injury Rhabdo Electrolyte derangement Likely secondary to ischemic ATN following cardiac arrest. Strict intake output, monitor and replete electrolytes, follow BUN/creatinine Renal is following- Dr. Flannery abdomen: No hydronephrosis. On free water 250ml Q8, monitor sodium level. Lasix drip to mobilize fluid being initiated on 06/20 per nephrology. GI: Elevated transaminases Hypoalbuminemia Hyperammonia Continue Nepro @ 55ml/hr-no residuals Famotidine 10 mg BID for GI prophylaxis Docusate/senna 1 tablet twice daily, polyethylene glycol 17 g twice daily and lactulose 30 cc twice daily for bowel regimen. Monitor LFT's (trending down),Hep profile is negative Abdominal ultrasound 05/31 -market hepatic congestion. Contracted gallbladder with pericholecystic fluid. Possible acalculous cholecystitis recommend HIDA scan if clinically able. US abdomen: Gall bladder wall thickening and possible pericholecystic fluid without evidence of gallstones. Recommend HIDA scan if clinically indicated Lactulose 30 cc 4 times daily. GI following. Status post G-tube by IR. 06/17 Heme: Persistent Leukocytosis Microcytic anemia Monitor CBC, transfuse to keep hemoglobin above 7 g percent VQ scan negative 05/23 BLE u/s negative for DVT 05/23 ID: MSSA pneumonia Abx per ID ( On Cefepime) Monitor for signs of infections ( Fever, WBC) ID is following- , follow up on sputum and urine cxs Pertinent: C-diff PCR negative on 06/04 and 06/09 06/08 -sputum -normal resp lizzie 05/31/13 -blood cultures 2 -pending 05/30 -bronchoscopy -no growth 05/30 -sputum -rare WBC/budding yeast 05/30 -blood cultures 2 -pending 05/25 -blood cultures 2 -no growth to date 05/25 -urine culture -no growth to date 05/23 -sputum -MSSA 05/23 -blood cultures 2 -no growth to date Endo: SSI ( medium scale) NovUlin R medium regimen every 6 hours sliding scale. Levemir 7u Q12 TSH 2.3 PROPH: SCDs, start heparin 5000 units subcutaneously every 8 hourly on 06/19 ACCESS Left IJ CVL placed 05/31 Discussed with patient's by phone on 06/16. I explained need for tracheostomy and PEG tube and she voiced understanding and was agreeable. Consulted GI and general surgery for PEG and tracheostomy which were done on . Case management to initiate discharge planning for LTAC. Paul Arango MD Jun 20, 2017 13:35
[2017-06-20] MEDS: FUROSEMIDE INJ 100 MG in SODIUM CHLORIDE 0.9% INJ 90 ML IV SCH (14:25)
--- NOTE | 2017-06-20 14:42 | RADRPT ---
EXAM DATE/TIME: 06/20/2017 14:12 [facility] COMPARISON: CHEST SINGLE AP, June 19, 2017, 2:39. INDICATIONS : Shortness of breath. MEDICAL HISTORY : Hypertension. Aortic dissection VDRF SURGICAL HISTORY : None. ENCOUNTER: Subsequent ACUITY: 1 month PAIN SCORE: Non-responsive. LOCATION: Bilateral chest FINDINGS: Tracheostomy in place. Left internal jugular catheter tip projects over the origin of the superior v toby cava. There is consolidation in the left hilar region with some air bronchograms, similar to natalee or. Elevation right hemidiaphragm is unchanged from prior. There are multiple new acinar densities in the upper lungs bilaterally without evidence of air bronchograms. CONCLUSION: Persistent left hilar and infrahilar consolidative infiltrate. New acinar densities in the upper shawna gs without evidence of consolidation. Rudy Pollock MD on June 20, 2017 at 14:39 Board Certified Radiologist. This report was verified electronically.
--- NOTE | 2017-06-20 15:20 | HHI.IDPN ---
Subjective Subjective Remarks massive edema more prominent ion upper body afebrile on vent WBC worse up to 23 K was on sterroids - stopped today weight up 20 kgs Antibiotics cefepime Allergies: Coded Allergies: No Known Allergies (Unverified , 05/19/17) Objective . Vital Signs Date Time Temp Pulse Resp B/P (MAP) Pulse Ox O2 Delivery O2 Flow Rate FiO2 06/20/17 12:00 98.5 84 20 114/55 (74) 100 06/20/17 12:00 35 06/20/17 12:00 84 06/20/17 10:00 80 06/20/17 08:29 98 35 06/20/17 08:00 98.4 86 21 119/64 (82) 100 06/20/17 08:00 35 06/20/17 08:00 86 06/20/17 06:00 90 06/20/17 04:00 83 06/20/17 04:00 98.3 83 17 112/56 (74) 100 06/20/17 04:00 35 06/20/17 03:34 99 35 06/20/17 02:00 96 06/20/17 00:22 100 35 06/20/17 00:00 85 06/20/17 00:00 98.8 85 17 104/53 (70) 100 06/20/17 00:00 35 06/19/17 22:00 85 06/19/17 20:03 100 35 06/19/17 20:00 84 06/19/17 20:00 98.7 84 17 104/53 (70) 100 06/19/17 20:00 35 06/19/17 20:00 66 06/19/17 18:00 85 06/19/17 16:00 83 06/19/17 16:00 35 06/19/17 16:00 98.3 83 17 111/57 (75) 100 . Laboratory Tests Test 06/19/17 06:00 White Blood Count 23.9 TH/MM3 Red Blood Count 2.78 MIL/MM3 Hemoglobin 7.4 GM/DL Hematocrit 23.2 % Mean Corpuscular Volume 83.5 FL Mean Corpuscular Hemoglobin 26.7 PG Mean Corpuscular Hemoglobin Concent 32.0 % Red Cell Distribution Width 18.3 % Platelet Count 203 TH/MM3 Mean Platelet Volume 10.6 FL Neutrophils (%) (Auto) 83.0 % Lymphocytes (%) (Auto) 9.5 % Monocytes (%) (Auto) 7.0 % Eosinophils (%) (Auto) 0.4 % Basophils (%) (Auto) 0.1 % Neutrophils # (Auto) 19.8 TH/MM3 Lymphocytes # (Auto) 2.3 TH/MM3 Monocytes # (Auto) 1.7 TH/MM3 Eosinophils # (Auto) 0.1 TH/MM3 Basophils # (Auto) 0.0 TH/MM3 CBC Comment AUTO DIFF Differential Total Cells Counted 100 Neutrophils % (Manual) 80 % Band Neutrophils % 5 % Lymphocytes % 5 % Monocytes % 7 % Neutrophils # (Manual) 21.0 TH/MM3 Metamyelocytes 2 % Myelocytes 1 % Nucleated Red Blood Cells 7 /100 WBC Differential Comment FINAL DIFF MANUAL Platelet Estimate NORMAL Platelet Morphology Comment ENLARGED Basophilic Stippling MOD [place] Cells 1+ Keratocytes OCC Laboratory Tests Test 06/19/17 06:00 Blood Urea Nitrogen 109 MG/DL Creatinine 2.37 MG/DL Random Glucose 120 MG/DL Total Protein 5.7 GM/DL Albumin 2.1 GM/DL Calcium Level 7.6 MG/DL Alkaline Phosphatase 65 U/L Aspartate Amino Transf (AST/SGOT) 39 U/L Alanine Aminotransferase (ALT/SGPT) 59 U/L Total Bilirubin 0.6 MG/DL Sodium Level 145 MEQ/L Potassium Level 4.5 MEQ/L Chloride Level 114 MEQ/L Carbon Dioxide Level 22.9 MEQ/L Anion Gap 8 MEQ/L Estimat Glomerular Filtration Rate 38 ML/MIN Imaging Last Impressions Chest X-Ray 06/20/17 0000 Signed Impressions: Service Date/Time: Tuesday, June 20, 2017 14:12 - CONCLUSION: Persistent left hilar and infrahilar consolidative infiltrate. New acinar densities in the upper lungs without evidence of consolidation. Rudy Pollock MD Gastrostomy Tube Placement 06/17/17 0000 Signed Impressions: Service Date/Time: Saturday, June 17, 2017 13:42 - CONCLUSION: Uncomplicated gastrostomy tube placement as above. Rodrigue Miller MD Abdomen X-Ray 06/02/17 0000 Signed Impressions: Service Date/Time: May 10:18 - CONCLUSION: NG tip in stomach. Left basilar airspace disease. Elevated right hemidiaphragm. Bowel gas pattern demonstrates mild ileus Tc Varghese MD Liver Ultrasound 05/31/17 1434 Signed Impressions: Service Date/Time: Wednesday, May 31, 2017 14:40 - CONCLUSION: 1. Interval apparent hepatomegaly with diffusely increased hepatic echogenicity. Given the acuity of findings, findings may reflect acute hepatitis or congestive hepatopathy. 2. Persistently contracted gallbladder which accentuates the gallbladder wall with persistent gallbladder wall thickening and trace pericholecystic fluid. These findings are commonly seen in the setting of liver disease although differential considerations include acalculous cholecystitis. HIDA scan may be performed for better evaluation as clinically appropriate. 3. Andrew Kraft MD Lung Scan-V Nuclear Medicine 05/23/17 0000 Signed Impressions: Service Date/Time: Tuesday, May 23, 2017 10:22 - CONCLUSION: Low probability of pulmonary embolism. Buddy Harrison MD FACR Lower Extremity Ultrasound 05/23/17 0000 Signed Impressions: Service Date/Time: Tuesday, May 23, 2017 08:02 - CONCLUSION: Negative for deep venous thrombosis. Buddy Harrison MD FACR Head CT 05/23/17 0000 Signed Impressions: Service Date/Time: Tuesday, May 23, 2017 03:56 - CONCLUSION: 1. Examination quality is degraded by motion artifact. 2. No definite acute finding is identified. There is a 3 mm punctate area of high density in the left frontal periventricular white matter. This could represent small focus of acute blood products. Suggest attention to this on followup imaging. Wiliam Buck MD Brain MRI 05/23/17 0000 Signed Impressions: Service Date/Time: Tuesday, May 23, 2017 15:59 - CONCLUSION: 1. 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 2. No hemorrhage observe. 3. Pansinus disease. Rudy Cervantes Jr., MD Aorta CTA 05/23/17 0000 Signed Impressions: Service Date/Time: Tuesday, May 23, 2017 03:58 - CONCLUSION: 1. 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 The dissection extends to the abdominal aorta and terminates in the common iliac arteries bilaterally. The abdominal vessels arise from both the true and false lumens and demonstrate good opacification. Suggest correlating with the patient's prior imaging study which documents the dissection. 2. 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 3. There is stranding of the periaortic fat adjacent to the arch aneurysm. 4. There are small bilateral pleural effusions, left larger than right, with bilateral volume loss and/or airspace consolidation bilaterally. Wiliam Buck MD Abdomen Ultrasound 05/23/17 0000 Signed Impressions: Service Date/Time: Tuesday, May 23, 2017 17:22 - CONCLUSION: 1. Gall bladder wall thickening and possible pericholecystic fluid without evidence of gallstones. May consider perform hepatic biliary tract scan to evaluate for acalculous cholecystitis. 2. No focal abnormality seen within the liver. Rudy Pollock MD Physical Exam CONSTITUTIONAL/GENERAL: This is an adequately nourished patient, sedated int'd on vent TUBES/LINES/DRAINS: SKIN: No jaundice, rashes, or lesions. Skin temperature appropriate. Not diaphoretic. NECK: trach in place EYES: Pupils equal and round and reactive. Extraocular motions intact. No scleral icterus. No injection or drainage. Fundi not examined. CARDIOVASCULAR: Regular rate and rhythm without murmurs, gallops, or rubs. No JVD. Peripheral pulses symmetric. RESPIRATORY/CHEST: Symmetric, unlabored respirations. few scattered rhonchi to auscultation. Breath sounds equal bilaterally. GASTROINTESTINAL: Abdomen soft, non-tender, nondistended. No hepato-splenomegaly , or palpable masses. No guarding. Bowel sounds present. PEG in place Incontinent of large brown stool GENITOURINARY: Without palpable bladder distension. Ledesma catheter in place with very light yellow urine MUSCULOSKELETAL: Extremities without clubbing, cyanosis, + prominent edema, 4+, tight much more promenent in upper torso, neck , shoulders No mottling or clubbing. NEUROLOGICAL: sedated unresponsive PSYCHIATRIC: unable to assess Assessment & Plan Remarks Type B AAA dissection PNA, clx negative, but BAL cw PNA, 24 K WBC growing budding yeast from BAL - doubt clin significance CXR looks worse growing PSAE in the sputum - crawford senstitive except I gent Acute VDRF - failure to wean Non oliguric ARF Fever -resolved Leukocytosis, bandemia - worsening ? sterroids contributing Abx associated ileus , diarrhea - c.diff negative x 3/3 Funguria cont cefepime repaet blood, urine and sputum clx fluconazole x [address] chest, neck wo contrast Discussed Condition With RN Nalini Urena Dr, MD Jun 20, 2017 15:20
[2017-06-20] MEDS ORDERED: ALTEPLASE RECOMBINANT 2 MG VIAL IV FLUSH ONE (18:00)
[2017-06-20 20:15] LABS: BICARBONATE 21.7 MEQ/L (21.0-32.0); CALCIUM 7.5 MG/DL (8.5-10.1); CREATININE 2.93 MG/DL (0.60-1.30)
--- NOTE | 2017-06-20 21:32 | RADRPT ---
EXAM DATE/TIME: 06/20/2017 20:27 [facility] COMPARISON: No previous studies available for comparison. INDICATIONS : Evaluate for thrombosis. RADIATION DOSE: 53.23 CTDIvol (mGy) ; Patient body habitus MEDICAL HISTORY : Non-responsive. SURGICAL HISTORY : Non-responsive. ENCOUNTER: Initial ACUITY: 1 day PAIN SCORE: Non-responsive LOCATION: neck TECHNIQUE: Volumetric scanning of the neck was performed. Using automated exposure control and adjustment of th e mA and/or kV according to patient size, radiation dose was kept as low as reasonably achievable to obtain optimal diagnostic quality images. DICOM format image data is available electronically for re view and comparison. FINDINGS: Exam performed without contrast so we are unable to evaluate for arterial or venous thromboses. There is severe anasarca with marked subcutaneous edema the in the lower head and neck extending into the upper chest. Tracheostomy is in good position. There is opacification of the ethmoid air cells, sphen oid sinus and mucosal thickening of the maxillary sinuses. No air is seen within the upper airway above the tracheostomy. This is probably related to mucosal sw elling. No loculated fluid is seen to suggest abscess. No acute bony abnormalities are identified. There is airspace disease in the upper lungs bilaterally, worse on the right. CONCLUSION: 1. Contrast not administered so unable to evaluate for thrombosis. 2. Severe anasarca and probable mucosal edema in the upper airway. No air within the airway above the tracheostomy. 3. Upper lobe air space disease in the lungs, worse on the right. 4. Pansinus disease as above. Tc Varghese MD on June 20, 2017 at 21:26 Board Certified Radiologist. This report was verified electronically.
--- NOTE | 2017-06-20 21:36 | RADRPT ---
EXAM DATE/TIME: 06/20/2017 20:34 [facility] COMPARISON: GASTROSTOMY TUBE [facility] W/US, June 17, 2017, 13:42. INDICATIONS : Evaluate for thrombosis. RADIATION DOSE: 19.79 CTDIvol (mGy) MEDICAL HISTORY : Non-responsive. SURGICAL HISTORY : Non-responsive. ENCOUNTER: Initial ACUITY: 1 day PAIN SCALE: Non-responsive LOCATION: chest TECHNIQUE: Volumetric scanning of the chest was performed. Using automated exposure control and adjustment of t he mA and/or kV according to patient size, radiation dose was kept as low as reasonably achievable to obtain optimal diagnostic quality images. DICOM format image data is available electronically for r eview and comparison. Follow-up recommendations for detected pulmonary nodules are based at a minimum on nodule size and pa tient risk factors according to Fleischner Society Guidelines. FINDINGS: Adriana is patchy lung consolidation bilaterally, worse on the right side most characteristic of broncho pneumonia. Small left pleural effusion. Severe anasarca with fluid infiltration of the soft tissues diffusely. Edematous and mildly enlarged lymph nodes are suspected in the hiram and subcarinal regions. There is free intraperitoneal air in the upper abdomen presumably related to gastrostomy placement 2 days ago. No acute bony abnormalities. Left central line tip in superior vena cava. CONCLUSION: 1. Contrast not administered side able to evaluate for thrombosis or embolism. 2. Severe anasarca. 3. Bilateral patchy airspace disease in the lungs most characteristic of bronchopneumonia. Small left effusion. 4. Free intraperitoneal air presumably related to recent gastrostomy placement. 5. Left central line tip in superior vena cava. Tc Varghese MD on June 20, 2017 at 21:29 Board Certified Radiologist. This report was verified electronically.
[2017-06-21] VITALS (62 sets, daily range): BP systolic 56–109; BP diastolic 29–62; PULSE 0–79; RESP 16–25; TEMP 96–98.9; O2SAT 50–100
[2017-06-21] MEDS: CEFEPIME INJ 2,000 MG in SODIUM CHLORIDE 0.9% INJ 100 ML IV SCH ×2 (00:59→13:38)
[2017-06-21] MEDS: DILTIAZEM HCL 90 MG TAB PO SCH ×4 (00:59→18:00)
[2017-06-21] MEDS: hydrALAZINE HCL 50 MG TAB OG-TUBE SCH ×4 (03:12→19:58)
[2017-06-21] MEDS: fentaNYL DRIP 250 ML IV PRN (03:13)
[2017-06-21] MEDS: CHLORHEXIDINE GLUCONATE 2 % 1 PACK (2 CLOTHS) TOP SCH (05:56)
[2017-06-21] MEDS: FREE WATER G-TUBE SCH ×2 (05:57→13:39)
[2017-06-21] MEDS: ARTIFICIAL TEARS OPTH SOLN 15 ML BTL EACH EYE SCH ×3 (05:57→21:28)
[2017-06-21] MEDS: HEPARIN SODIUM - SQ 10,000 UNITS/ML VIAL SQ SCH ×3 (05:57→21:28)
[2017-06-21] MEDS: METOCLOPRAMIDE HCL 10 MG/2 ML VIAL IV SCH ×2 (05:57→13:39)
[2017-06-21] MEDS: cloNIDine HCL 0.3 MG TAB PO SCH ×2 (05:57→13:40)
[2017-06-21] MEDS: INSULIN NovoLIN REGULAR SUPPLEMENTAL SCALE SQ SCH ×4 (06:00→18:00)
[2017-06-21 06:08] LABS: BASOPHIL # 0.1 TH/MM3 (0-0.2); BASOPHIL % 0.5 % (0.0-2.0); EOSINOPHIL # 0.2 TH/MM3 (0-0.4); EOSINOPHIL % 1.5 % (0.0-4.0); LYMPH % 9.9 % (9.0-44.0); LYMPHOCYTE # 1.1 TH/MM3 (1.0-4.8); MEAN CELL VOLUME 83.3 FL (80.0-100.0); MEAN CORPUSCULAR HEMOGLOBIN 26.9 PG (27.0-34.0); MEAN CORPUSCULAR HGB CONC 32.3 % (32.0-36.0); MEAN PLATELET VOLUME 9.5 FL (7.0-11.0); MONO % 4.6 % (0.0-8.0); MONOCYTE # 0.5 TH/MM3 (0-0.9); NEUT % 83.5 % (16.0-70.0); PLATELET COUNT 169 TH/MM3 (150-450); RED BLOOD COUNT 2.26 MIL/MM3 (4.50-5.90); RED CELL DISTRIBUTION WIDTH 18.7 % (11.6-17.2); WHITE BLOOD COUNT 10.8 TH/MM3 (4.0-11.0)
[2017-06-21 06:12] LABS: HEMATOCRIT 18.8 % (39.0-51.0); HEMOGLOBIN 6.1 GM/DL (13.0-17.0)
[2017-06-21 06:37] LABS: ALBUMIN 1.8 GM/DL (3.4-5.0); ALKALINE PHOSPHATASE 59 U/L (45-117); ALT (GPT) 119 U/L (12-78); AST (GOT) 123 U/L (15-37); BICARBONATE 20.1 MEQ/L (21.0-32.0); BLOOD UREA NITROGEN 127 MG/DL (7-18); CHLORIDE 114 MEQ/L (98-107); CREATININE 3.18 MG/DL (0.60-1.30); GLOMERULAR FILTRATION RATE 27 ML/MIN (>89); GLUCOSE,RANDOM 76 MG/DL (74-106); PHOSPHORUS 8.2 MG/DL (2.5-4.9); SODIUM (NA) 147 MEQ/L (136-145); TOTAL BILIRUBIN ADULT 1.1 MG/DL (0.2-1.0); TOTAL PROTEIN 5.4 GM/DL (6.4-8.2)
[2017-06-21 07:45] LABS: HEMATOCRIT 18.9 % (39.0-51.0); HEMOGLOBIN 6.1 GM/DL (13.0-17.0)
[2017-06-21 08:28] LABS: BANDS 24 % (0-6); CORRECTED NUCLEATED RBC 26 /100 WBC (0-0); LYMPHOCYTES 8 % (9-44); MONOCYTES 2 % (0-8); NEUTROPHIL # MANUAL DIFF 9.6 TH/MM3 (1.8-7.7); NUCLEATED RED BLOOD CELL 26 (0-0); POLYS (SEG NEUTROPHILS) 65 % (16-70)
[2017-06-21] MEDS: INSULIN DETEMIR 100 UNITS/ML VIAL SQ SCH (09:00)
[2017-06-21] MEDS: CHLORHEXIDINE 0.12% (ORAL KIT) 15 ML CUP MT SCH ×2 (09:30→19:58)
[2017-06-21] MEDS: FAMOTIDINE 20 MG TAB PO SCH ×2 (09:30→21:28)
[2017-06-21] MEDS: ASPIRIN 81 MG CHEW TAB CHEW SCH (09:30)
[2017-06-21] MEDS: CARVEDILOL 12.5 MG TAB PO SCH ×2 (09:30→21:00)
[2017-06-21] MEDS: SODIUM CHLORIDE 0.9% FLUSH 10 ML FLUSH IV FLUSH SCH (09:31)
--- NOTE | 2017-06-21 11:35 | HHI.HCPN ---
Reason for visit a. To assist with evaluation and management of symptoms including: dyspnea b. To assist medical decision maker(s) with: better understanding of current medical conditions; weighing benefits/burdens of medical treatment options; making medical treatment decisions. (Jenni Weathers) Subjective/Interval History Pt seen to follow up on comfort, goals. Remains on [facility] vent in ICU. (s/p trach , PEG 06/17). Most of sedatives have been weaned off, currently on fentanyl 50mcgs/hr. Remains minimally responsive. WBC down to 10.8 (from 23) steroids discontinued. CXR yesterday = persistent left consolidative infiltrates. Cont to have significant edema edema to BUE, + fluid, +20Kg. On lasix drip, 5mg hr. BUN/creatinine worsening- 127/3.18. H&H decreased 6.1/18.8,ordered transfuse 2 U RBC per critical care. Hypotensive today, bp 80-90s systolic. D/w rn, critical care. May obtain CT abd/pelvis today. Pt examined in room no visitors present. Spont eye opening at times, does not track examiner. No withdrawal to pain stimuli on extremities. +edema, generalized. +large loose BM in bedding, notified nursing. + respirations over vent rate. Family/friend interactions VM left for 1500 call back from , updated on condition, anemia , transfusion, pending diagnostics, vital signs/hypotension, concern for possible clinical deterioration given underlying pathology. Review of code status, what CPR entails and possible poor outcomes 2/2 conditions. All questions answered to the best of my ability. Goals remain aggressive at this time to continue with available treatments, open to ongoing conversations as conditions evolve. . (Jenni Weathers) Advance Directives Living Will: Never completed Health Care Surrogate: Never completed Durable Power of Devil Tender: Never completed (Jenni Weathers) Objective Vital Signs Date Time Temp Pulse Resp B/P (MAP) Pulse Ox O2 Delivery O2 Flow Rate FiO2 06/21/17 10:32 100 35 06/21/17 10:16 98.1 73 19 92/52 100 06/21/17 08:20 100 35 06/21/17 06:00 79 94/45 (61) 100 06/21/17 06:00 79 06/21/17 05:00 74 06/21/17 05:00 74 83/47 (59) 100 06/21/17 04:00 74 06/21/17 04:00 35 06/21/17 04:00 98.6 74 76/45 (55) 100 06/21/17 03:37 100 35 06/21/17 03:00 71 06/21/17 03:00 71 86/52 (63) 100 06/21/17 02:00 71 84/47 (59) 100 06/21/17 02:00 71 06/21/17 01:00 76 06/21/17 00:27 100 35 06/21/17 00:00 35 06/21/17 00:00 98.7 73 20 109/56 (73) 100 06/21/17 00:00 79 06/20/17 23:00 76 06/20/17 22:00 79 18 125/62 (83) 100 06/20/17 22:00 79 06/20/17 21:00 78 06/20/17 20:15 100 100 06/20/17 20:00 98.6 79 18 112/55 (74) 100 06/20/17 20:00 35 06/20/17 20:00 79 06/20/17 19:52 100 35 06/20/17 18:00 79 06/20/17 16:10 100 35 06/20/17 16:00 84 06/20/17 16:00 35 06/20/17 16:00 98.3 84 18 100/56 (71) 100 06/20/17 14:00 81 06/20/17 12:03 100 35 06/20/17 12:00 98.5 84 20 114/55 (74) 100 06/20/17 12:00 35 06/20/17 12:00 84 Intake & Output 06/21/17 06/21/17 07:00 19:00 Intake Total 510.3 ml 10 ml Output Total 950 ml Balance -439.7 ml 10 ml IV Total 365.3 ml Tube Feeding 25 ml Blood Product IV Normal Saline Flush 10 ml Other 120 ml Output Urine Total 950 ml # Bowel Movements 0 Physical Exam CONSTITUTIONAL/GENERAL: This is an obese patient on mechanical vent no apparent distress TUBES/LINES/DRAINS: Left subclavian central line, tracheostomy, PEG, Ledesma catheter SKIN: No jaundice, rashes, or lesions. No wounds seen anteriorly. Skin warm and dry. 4+ generalized edema HEAD: Atraumatic. Normocephalic. EYES: Pupils 2mm slight reaction to light. No scleral icterus. No injection or drainage. Fundi not examined. ENT: Nose without bleeding or purulent drainage. mouth closed, no visible exudates NECK: Trachea midline, tracheostomy to mech vent. Supple, nontender. CARDIOVASCULAR: Regular rate and rhythm without murmur. Peripheral pulses symmetric. 3-4+ edema to extremities RESPIRATORY/CHEST: Symmetric, unlabored respirations via trach to mech vent. course rhonchi throughout GASTROINTESTINAL: Abdomen soft, round, obese . No palpable masses. Bowel sounds normoactive. Tube feed infusing via G-tube GENITOURINARY: Without palpable bladder distension. Ledesma catheter in place. MUSCULOSKELETAL: Extremities without clubbing, cyanosis. No joint effusion noted. No mottling or clubbing.+3-4 edema NEUROLOGICAL: minimal sedation of mech vent (50mcgs fentanyl). spontaneous eye opening, does not track examiner. No movement of extremities to pain. PSYCHIATRIC: Limited assessment due to clinical condition, no apparent distress / minimally responsive . (Jenni Weathers) Diagnostic Tests Laboratory Laboratory Tests Test 06/19/17 06:00 06/20/17 16:25 06/21/17 05:45 06/21/17 06:50 White Blood Count 23.9 TH/MM3 (4.0-11.0) 10.8 TH/MM3 (4.0-11.0) Red Blood Count 2.78 MIL/MM3 (4.50-5.90) 2.26 MIL/MM3 (4.50-5.90) Hemoglobin 7.4 GM/DL (13.0-17.0) 6.1 GM/DL (13.0-17.0) 6.1 GM/DL (13.0-17.0) Hematocrit 23.2 % (39.0-51.0) 18.8 % (39.0-51.0) 18.9 % (39.0-51.0) Mean Corpuscular Volume 83.5 FL (80.0-100.0) 83.3 FL (80.0-100.0) Mean Corpuscular Hemoglobin 26.7 PG (27.0-34.0) 26.9 PG (27.0-34.0) Mean Corpuscular Hemoglobin Concent 32.0 % (32.0-36.0) 32.3 % (32.0-36.0) Red Cell Distribution Width 18.3 % (11.6-17.2) 18.7 % (11.6-17.2) Platelet Count 203 TH/MM3 (150-450) 169 TH/MM3 (150-450) Mean Platelet Volume 10.6 FL (7.0-11.0) 9.5 FL (7.0-11.0) Neutrophils (%) (Auto) 83.0 % (16.0-70.0) 83.5 % (16.0-70.0) Lymphocytes (%) (Auto) 9.5 % (9.0-44.0) 9.9 % (9.0-44.0) Monocytes (%) (Auto) 7.0 % (0.0-8.0) 4.6 % (0.0-8.0) Eosinophils (%) (Auto) 0.4 % (0.0-4.0) 1.5 % (0.0-4.0) Basophils (%) (Auto) 0.1 % (0.0-2.0) 0.5 % (0.0-2.0) Neutrophils # (Auto) 19.8 TH/MM3 (1.8-7.7) 9.0 TH/MM3 (1.8-7.7) Lymphocytes # (Auto) 2.3 TH/MM3 (1.0-4.8) 1.1 TH/MM3 (1.0-4.8) Monocytes # (Auto) 1.7 TH/MM3 (0-0.9) 0.5 TH/MM3 (0-0.9) Eosinophils # (Auto) 0.1 TH/MM3 (0-0.4) 0.2 TH/MM3 (0-0.4) Basophils # (Auto) 0.0 TH/MM3 (0-0.2) 0.1 TH/MM3 (0-0.2) CBC Comment AUTO DIFF AUTO DIFF Differential Total Cells Counted 100 100 Neutrophils % (Manual) 80 % (16-70) 65 % (16-70) Band Neutrophils % 5 % (0-6) 24 % (0-6) Lymphocytes % 5 % (9-44) 8 % (9-44) Monocytes % 7 % (0-8) 2 % (0-8) Neutrophils # (Manual) 21.0 TH/MM3 (1.8-7.7) 9.6 TH/MM3 (1.8-7.7) Metamyelocytes 2 % (0-1) Myelocytes 1 % (0-0) Nucleated Red Blood Cells 7 /100 WBC (0-0) 26 /100 WBC (0-0) Differential Comment FINAL DIFF MANUAL FINAL DIFF MANUAL Platelet Estimate NORMAL (NORMAL) NORMAL (NORMAL) Platelet Morphology Comment ENLARGED (NORMAL) NORMAL (NORMAL) Basophilic Stippling MOD (NORMAL) MOD (NORMAL) Matt Cells 1+ (NORMAL) Keratocytes OCC (NORMAL) Blood Urea Nitrogen 109 MG/DL (7-18) 120 MG/DL (7-18) 127 MG/DL (7-18) Creatinine 2.37 MG/DL (0.60-1.30) 2.93 MG/DL (0.60-1.30) 3.18 MG/DL (0.60-1.30) Random Glucose 120 MG/DL (74-106) 128 MG/DL (74-106) 76 MG/DL (74-106) Total Protein 5.7 GM/DL (6.4-8.2) 5.4 GM/DL (6.4-8.2) Albumin 2.1 GM/DL (3.4-5.0) 1.8 GM/DL (3.4-5.0) Calcium Level 7.6 MG/DL (8.5-10.1) 7.5 MG/DL (8.5-10.1) 8.0 MG/DL (8.5-10.1) Alkaline Phosphatase 65 U/L (45-117) 59 U/L (45-117) Aspartate Amino Transf (AST/SGOT) 39 U/L (15-37) 123 U/L (15-37) Alanine Aminotransferase (ALT/SGPT) 59 U/L (12-78) 119 U/L (12-78) Total Bilirubin 0.6 MG/DL (0.2-1.0) 1.1 MG/DL (0.2-1.0) Sodium Level 145 MEQ/L (136-145) 146 MEQ/L (136-145) 147 MEQ/L (136-145) Potassium Level 4.5 MEQ/L (3.5-5.1) 4.8 MEQ/L (3.5-5.1) 4.8 MEQ/L (3.5-5.1) Chloride Level 114 MEQ/L (98-107) 114 MEQ/L (98-107) 114 MEQ/L (98-107) Carbon Dioxide Level 22.9 MEQ/L (21.0-32.0) 21.7 MEQ/L (21.0-32.0) 20.1 MEQ/L (21.0-32.0) Anion Gap 8 MEQ/L (5-15) 10 MEQ/L (5-15) 13 MEQ/L (5-15) Estimat Glomerular Filtration Rate 38 ML/MIN (>89) 30 ML/MIN (>89) 27 ML/MIN (>89) Eosinophils % 1 % (0-4) Phosphorus Level 8.2 MG/DL (2.5-4.9) Magnesium Level 2.0 MG/DL (1.5-2.5) (Jenni Weathers [facility]) Result Diagram: 06/21/17 0650 06/21/17 0545 Microbiology Microbiology Date/Time Source Procedure Growth Status 06/01/17 00:02 Blood Peripheral Aerobic Blood Culture - Final NO GROWTH IN 5 DAYS Complete 06/01/17 00:02 Blood Peripheral Anaerobic Blood Culture - Final QNS - SEE AEROBE REPORT Complete 06/13/17 07:55 Stool Stool Stool Occult Blood (EILEEN) - Final HEMOCCULT POSITIVE Complete 06/13/17 11:50 Sputum Endotracheal Gram Stain - Final Complete 06/13/17 11:50 Sputum Culture - Final Pseudomonas Aeruginosa Complete 06/13/17 13:40 Urine Catheterized Urine Urine Culture - Final Ruth Albicans Complete Imaging Last Impressions Neck CT 06/20/17 0000 Signed Impressions: Service Date/Time: Tuesday, June 20, 2017 20:27 - CONCLUSION: 1. Contrast not administered so unable to evaluate for thrombosis. 2. Severe anasarca and probable mucosal edema in the upper airway. No air within the airway above the tracheostomy. 3. Upper lobe air space disease in the lungs, worse on the right. 4. Pansinus disease as above. Tc Varghese MD Chest X-Ray 06/20/17 0000 Signed Impressions: Service Date/Time: Tuesday, June 20, 2017 14:12 - CONCLUSION: Persistent left hilar and infrahilar consolidative infiltrate. New acinar densities in the upper lungs without evidence of consolidation. Rudy Pollock MD Chest CT 06/20/17 0000 Signed Impressions: Service Date/Time: Tuesday, June 20, 2017 20:34 - CONCLUSION: 1. Contrast not administered side able to evaluate for thrombosis or embolism. 2. Severe anasarca. 3. Bilateral patchy airspace disease in the lungs most characteristic of bronchopneumonia. Small left effusion. 4. Free intraperitoneal air presumably related to recent gastrostomy placement. 5. Left central line tip in superior vena cava. Tc Varghese MD Gastrostomy Tube Placement 06/17/17 0000 Signed Impressions: Service Date/Time: Saturday, June 17, 2017 13:42 - CONCLUSION: Uncomplicated gastrostomy tube placement as above. Rodrigue Miller MD Abdomen X-Ray 06/02/17 0000 Signed Impressions: Service Date/Time: May 10:18 - CONCLUSION: NG tip in stomach. Left basilar airspace disease. Elevated right hemidiaphragm. Bowel gas pattern demonstrates mild ileus Tc Varghese MD Liver Ultrasound 05/31/17 1434 Signed Impressions: Service Date/Time: Wednesday, May 31, 2017 14:40 - CONCLUSION: 1. Interval apparent hepatomegaly with diffusely increased hepatic echogenicity. Given the acuity of findings, findings may reflect acute hepatitis or congestive hepatopathy. 2. Persistently contracted gallbladder which accentuates the gallbladder wall with persistent gallbladder wall thickening and trace pericholecystic fluid. These findings are commonly seen in the setting of liver disease although differential considerations include acalculous cholecystitis. HIDA scan may be performed for better evaluation as clinically appropriate. 3. Andrew Kraft MD Lung Scan- Nuclear Medicine 05/23/17 0000 Signed Impressions: Service Date/Time: Tuesday, May 23, 2017 10:22 - CONCLUSION: Low probability of pulmonary embolism. Buddy Harrison MD FACR Lower Extremity Ultrasound 05/23/17 0000 Signed Impressions: Service Date/Time: Tuesday, May 23, 2017 08:02 - CONCLUSION: Negative for deep venous thrombosis. Buddy Harrison MD FACR Head CT 05/23/17 0000 Signed Impressions: Service Date/Time: Tuesday, May 23, 2017 03:56 - CONCLUSION: 1. Examination quality is degraded by motion artifact. 2. No definite acute finding is identified. There is a 3 mm punctate area of high density in the left frontal periventricular white matter. This could represent small focus of acute blood products. Suggest attention to this on followup imaging. Wiliam Buck MD Brain MRI 05/23/17 0000 Signed Impressions: Service Date/Time: Tuesday, May 23, 2017 15:59 - CONCLUSION: 1. 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 2. No hemorrhage observe. 3. Pansinus disease. Rudy Cervantes Jr., MD Aorta CTA 05/23/17 0000 Signed Impressions: Service Date/Time: Tuesday, May 23, 2017 03:58 - CONCLUSION: 1. 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 The dissection extends to the abdominal aorta and terminates in the common iliac arteries bilaterally. The abdominal vessels arise from both the true and false lumens and demonstrate good opacification. Suggest correlating with the patient's prior imaging study which documents the dissection. 2. 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 3. There is stranding of the periaortic fat adjacent to the arch aneurysm. 4. There are small bilateral pleural effusions, left larger than right, with bilateral volume loss and/or airspace consolidation bilaterally. Wiliam Buck MD Abdomen Ultrasound 05/23/17 0000 Signed Impressions: Service Date/Time: Tuesday, May 23, 2017 17:22 - CONCLUSION: 1. Gall bladder wall thickening and possible pericholecystic fluid without evidence of gallstones. May consider perform hepatic biliary tract scan to evaluate for acalculous cholecystitis. 2. No focal abnormality seen within the liver. 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 . Has 3 children still living at home 6-year-old son, 8-year-old daughter, 17- year-old. 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 Had multiple chronic illnesses which limited his ability to work outside of the home. indicated that he had had frequent doctor's visits and some hospital visits due to heart failure, obstructive sleep apnea. He would fall asleep often during the day. Patient originally from [place], has some family still in [facility]. is from [place], they lived in [place] for some time though have now been living in [place]. Spiritual: Legal: Patient not able to participate in medical decision making secondary to clinical conditions not clear if or when he will regain ability to make decisions. Per [place] statute his would be appropriate legal proxy. Ethical issues impacting care: Important Contacts Nury Lai [phone] . 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 During his course here he suffered PEA arrest, with ROSC. 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 He remains on mechanical vent requiring multiple sedatives for adequate blood pressure control, for medical management of TBAD. Will require tracheostomy and PEG tube for ongoing medical management. Prognosis guarded, very high risk for ongoing complications and decline secondary to prolonged hospital course and multiple acute issues. . Code Status: Full Code Plan * Legal decision maker:Patient not able to participate in medical decision making secondary to clinical conditions not clear if or when he will regain ability to make decisions. Per [place] statute his would be appropriate legal proxy. * Goals: per initial phone meeting with , healthcare proxy. Ms. Lai expresses aggressive goals to continue interventions available to help her 's recovery, including tracheostomy and PEG tube. Ms Lai is open to ongoing discussions as clinical course evolves. 06/20/17 VM left for 1500 call back from , updated on condition, anemia , transfusion, pending diagnostics, vital signs/hypotension, concern for possible clinical deterioration given underlying pathology. Review of code status, what CPR entails and possible poor outcomes 2/2 conditions. All questions answered to the best of my ability. Goals remain aggressive at this time to continue with available treatments, open to ongoing conversations as conditions evolve * CODE STATUS: Full code * SYMPTOMS: --Dyspnea-patient has been intubated, extubated, reintubated this admission. At some points requiring high levels of ventilator support. History of obstructive sleep apnea though this will likely resolve with tracheostomy placement. Currently breathing comfortably on mechanical ventilator with multiple sedatives in place: Propofol, fentanyl, Precedex. --Anxiety-potential for related to prolonged hospitalization, multiple invasive procedures. Currently appears comfortable on mechanical vent on above- noted sedatives. Will continue to evaluate Palliative care will continue to follow during hospital course as condition evolves, to assist patient/decision-maker with understanding of medical conditions, weighing benefits/burdens of treatment options, for clarification of goals of treatment. Additionally will assist with any symptoms of palliative concern . (Jenni Weathers) Attestation To help prompt me to consider important information that might be impacting today's encounter and assessment, information from prior notes written by myself or my colleagues may have been "brought forward" into today's note. My signature on this note, however, is an attestation that I personally performed the exam, history, and/or decision-making noted today, and, unless otherwise indicated, the interactions with patient, family, and staff as well as the review of records all occurred today. I also attest that the listed assessment and stated plan reflect my best clinical judgment today based on the combination of historical information, prior notes, and today's exam/ interactions. When time spent is documented, it refers only to time spent today by the signer, or if indicated, combined time spent today by collaborating physician/nurse practitioner. (Jenni Weathers) Collaborating MD Comments Chart reviewed. Case discussed with palliative care [employer]. Above KANA note reviewed and I concur. . (David Strauss MD) Jenni Weathers Jun 21, 2017 11:35 David Strauss MD Jun 27, 2017 05:37
--- NOTE | 2017-06-21 12:08 | HHI.NPPN ---
Subjective History of Present Illness 36 year old with Aortic dissection ARF Additional Remarks Patient remain on the vent. with Trach. now off sedation. Objective Data Data 06/21/17 06/22/17 19:00 07:00 Intake Total 10 ml Balance 10 ml Blood Product IV Normal Saline Flush 10 ml Vital Signs Date Time Temp Pulse Resp B/P (MAP) Pulse Ox O2 Delivery O2 Flow Rate FiO2 06/21/17 10:32 100 35 06/21/17 10:16 98.1 73 19 92/52 100 06/21/17 08:20 100 35 06/21/17 06:00 79 94/45 (61) 100 06/21/17 06:00 79 06/21/17 05:00 74 06/21/17 05:00 74 83/47 (59) 100 06/21/17 04:00 74 06/21/17 04:00 35 06/21/17 04:00 98.6 74 76/45 (55) 100 06/21/17 03:37 100 35 06/21/17 03:00 71 06/21/17 03:00 71 86/52 (63) 100 06/21/17 02:00 71 84/47 (59) 100 06/21/17 02:00 71 06/21/17 01:00 76 06/21/17 00:27 100 35 06/21/17 00:00 35 06/21/17 00:00 98.7 73 20 109/56 (73) 100 06/21/17 00:00 79 06/20/17 23:00 76 06/20/17 22:00 79 18 125/62 (83) 100 06/20/17 22:00 79 06/20/17 21:00 78 06/20/17 20:15 100 100 06/20/17 20:00 98.6 79 18 112/55 (74) 100 06/20/17 20:00 35 06/20/17 20:00 79 06/20/17 19:52 100 35 06/20/17 18:00 79 06/20/17 16:10 100 35 06/20/17 16:00 84 06/20/17 16:00 35 06/20/17 16:00 98.3 84 18 100/56 (71) 100 06/20/17 14:00 81 -: 06/21/17 0650 06/21/17 0545 Physical Exam Eyes Eye Exam: Pupils Equal Neck Neck Exam: Neck Supple Pulmonary Resp Exam: Rhonchi Cardiology CV Exam: Tachycardia Gastrointestinal/Abdomen GI Exam: Soft, Non-Tender, Distended Genitourinary Exam: Clear Urine Extremeties Extremities Exam: Moderate Edema, Pitting Edema, Dependent Edema Neurologic Neuro Exam: Sedated Assessment/Plan Problem List: (1) Acute renal failure ICD Codes: N17.9 - Acute kidney failure, unspecified Plan: He has large dissection of aorta continue to monitor he is passing urine , creatinine he did receive IV contrast repeat CTA Dissection up to Common Iliac arteries seen with true and false lumen perfused Urine out put is adequate. BP is now better. Creatinine yesterday 3.18 uop 2.9 L given PRBC, also ordered Albumin needs fluids off Edema Anasarca on diuresis trying Lasix drip getting PRBC BP is better controlled with multiple meds. (2) Dissection of aorta, thoracoabdominal ICD Codes: I71.03 - Dissection of thoracoabdominal aorta Status: Acute Plan: vascular is following Renal arteries remains perfused Roz Flannery MD Jun 21, 2017 12:08
--- NOTE | 2017-06-21 13:29 | HHI.CCPN ---
Subjective Remarks/Hospital Course 05/19: Is a 36-year-old male with a history of hypertension who is on vacation from the [place] area who did not take his antihypertensives today because he is on vacation, and was having sexual intercourse when he had sudden onset of severe substernal radiating to the back chest pain earlier today. 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 He was emergently transferred to [facility] [place] for further management. I evaluated the patient on arrival to the ICU by EVAC. Patient denies abdominal pain. Still endorses chest pain although this is improving. Patient denies any other symptoms. CT chest abdomen pelvis was reviewed and reviewed with myself and Dr. Guzman and does demonstrate a type B dissection. 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 Initial laboratory evidence demonstrates a lactate of 1.3, creatinine 1.2, normal LFTs. 05/20: On home C Pap. Urine output 30 cc/h currently. Remains on esmolol and labetalol drips. Remains drowsy though arousable. +4.4 L 05/21: Resting comfortably on nasal cannula. Awake and alert currently. Denies any shortness of breath or chest pain currently. 05/22: AAO x3, resting comfortably. 05/23 Patient went into PEA arrest early this morning now sedated with Diprivan and intubated. Off Esmolol drip. 05/24 Patient is sedated with Diprivan and intubated. On Labetolol drip. MRI brain yesterday showed multiple small infracts, no hemorrhage. 05/25 Patient remains intubated and sedated. T: 100.5 last night. Renal function is worsening with Cr: 3.6 from 3.4 and UOP: 2650ml in 24 hrs. 05/26 No events overnight. Sedated and intubated. Afebrile. Cr: 3.62 , UOP: 1950ml in 24 hrs 05/27 Patient was extubated yesterday placed on BIPAP overnight. Cr: 3.42 today , UOP: 1800 ml in 24 hrs 05/28 Extubated yesterday and per report was compliant with Bipap overnight Remains on esmolol drip 200 mcg/kg/min and SBP in 140s. ZULY, probable ATN non- oliguric however I>>0 with significant intake from MIVF as well as 180 mL/hr from esmolol drip. IVF d/c per nephrology and transitioning off esmolol to minimize fluid. Hugo now per my discussion with Dr. Thornton. He is tachypneic, obtained ABG with hypercapnea on simple mask. Placing On Bipap. at bedside requesting eventual transfer to [place], though she realized he is not stable for that yet. 05/29: Remains on BiPAP since 299 with increasing respiratory rates. Will attempt a more aggressive diuresis. We started on esmolol drip due to persistent tachycardia and unable to reach target blood pressure and heart rate requirements. At high risk for reintubation. 05/30: Remained hypotensive overnight. This a.m. desaturated, tachypneic requiring high percent on BiPAP hence intubated by center medical and lab director. Will require bronchoscopy this afternoon. Continue with aggressive diuresis. Broad antibiotic coverage. Start tube feeding. The systolic blood pressure better controlled while intubated on propofol and fentanyl drips. 05/31: T-max 102.8. Currently 99.6. FiO2 down to 80%. The same noted elevated transaminases AST of 2674. ALT of 1590. Creatinine is increased to 3.07 to 4.36. +2 L past 24 hours. One bowel movement. Noted prior gallbladder wall thickening on previous ultrasound. We will repeat today Subjective 06/01: T-max 102.5. Currently 98.9. Desaturate overnight resolved currently FiO2 of 80%. 4500 cc urine output. Creatinine continues to rise currently 4.9. CPK currently 6165. We will discontinue propofol with hepatomegaly, rhabdomyolysis possibly indicative propofol infusion syndrome. 06/02 Patient remains intubated and sedated. On Fentanyl, Versed and Nimbex. T: 100.0 at midnight. On PC/AC with PEEP:15, FIO2 50% Renal function continue to decline with Cr: 5.40 from 4.91 and UOP: 2895 ml in 24 hrs 06/03 Patient remains intubated and sedated with Versed, Fentanyl drips. Remains on Nimbex and Flolan. Cr: 5.6 from 5.4 with UOP: 3790 ml in 24 hrs. 06/04:Afebrile. Overnight the patient had an episode of hypotension during the and all sedation was briefly discontinued, then resumed for ventilator synchrony. Clonidine dosage decreased. Patient continues on pressure control mode, and Flolan for adequate oxygenation. Creatinine noted to be 5.7 weight urine output 3220cc/24 hrs. 06/05: Afebrile. This x-ray revealed improving area aeration of the right hemithorax. PEEP decreased this a.m. to 12, patient continues on FiO2 55% and Flolan, planned weaning. Electrolytes currently being replaced. Elevated liver enzymes continue to down trend. 06/06: Respiratory requirements decreasing, patient now on Flolan 10 ng/kg/min with FiO2 at 60%, maintaining O2 saturation 92%. Creatinine continues to down trend. Leukocytosis improving. 06/07: Flolan discontinued, FIO2 65%. Propofol added to maintain ventilator synchrony. Patient currently on 10 mg of Versed and 250 mics of fentanyl. Wound care was consulted for skin breakdown on buttocks secondary to multiple bowel movements, patient continues on Avani bed. 06/08: No acute events overnight. Flolan discontinued greater than 18 hours patient's O2 saturation 97% on FiO2 of 65. FiO2 requirements decreased the patient continues on a PEEP of 12. Free water flushes added to medication regimen secondary to hypernatremia, sodium level 156 today. 06/09 Patient remains sedated and intubated. Afebrile. 06/10 Patient is sedated with Versed, Diprivan and Fentanyl drips, intubated. Afebrile. renal function is improving with Cr: 3.52 from 3.94 06/11 No events overnight. Sedated with Diprivan and Fentanyl drips. Off Versed. renal function continue to improve with Cr:3.16 from 3.52. 06/12 Patient remains intubated placed on CPAP with PS 12, PEEP:5 and FIO2 40%, Cr down 2.74 from 3.16. Afebrile. 06/13 No events overnight. Sedated with Diprivan, Fentanyl and on Precedex. Placed on labetalol yesterday 9mg. Afebrile. 06/14 No events overnight. Remains sedated and intubated, labetalol drip 5mg. Cr : 2.80. FOr transfusions 1unit PRBC fot Hgb 6.7 this morning. 06/15: Sedated, orally intubated on mechanical ventilation. 06/16: Remains sedated, orally intubated on mechanical ventilation. PEEP +8 FiO2 40%. Consulted GI and general surgery for PEG and tracheostomy. 06/17: Remains sedated, orally intubated on mechanical ventilation. Awaiting tracheostomy and PEG tube today. 06/18: Underwent tracheostomy and G-tube placement yesterday. Had 15 second sinus pause last night. Remains sedated, orally intubated on mechanical ventilation. 06/19: Remains sedated, on mechanical ventilation via tracheostomy. Sedation being titrated off. 06/20: On fentanyl 50 mics per minute otherwise off all other sedation. Opens eyes occasionally not falling commands. Remains on mechanical ventilation via tracheostomy. 06/21: Sedation titrated off today. Spontaneous eye opening patient not responding to any commands. Not moving extremities. Patient noted to have a drop in hemoglobin 6.1, repeat level obtained for accuracy. Patient to be transfused 2 units packed red blood cells. CT of the abdomen and pelvis without contrast pending. Patient was placed on a Lasix infusion yesterday, nephro following creatinine 3.1 today. Corticosteroids were discontinued on 06/20 , WBC decreased. Objective Vital Signs Date Time Temp Pulse Resp B/P (MAP) Pulse Ox O2 Delivery O2 Flow Rate FiO2 06/21/17 10:32 100 35 06/21/17 10:16 98.1 73 19 92/52 Intake and Output 06/21/17 06/21/17 06/21/17 07:59 15:59 23:59 Intake Total 495 ml 10 ml Output Total 950 ml Balance -455 ml 10 ml Result Diagram: 06/21/17 0650 06/21/17 0545 Imaging Last Impressions Chest X-Ray 06/13/17 0000 Signed Impressions: Service Date/Time: Tuesday, June 13, 2017 09:52 - CONCLUSION: 1. Midinspiratory exam. The endotracheal tube tip is at the level of the julee. 2. Apparent increase in hazy opacity in both lungs which may represent pulmonary edema or be artifactual secondary to the Midinspiratory study. Marvin Rivas MD Abdomen X-Ray 06/02/17 0000 Signed Impressions: Service Date/Time: May 10:18 - CONCLUSION: NG tip in stomach. Left basilar airspace disease. Elevated right hemidiaphragm. Bowel gas pattern demonstrates mild ileus Tc Varghese MD Liver Ultrasound 05/31/17 1434 Signed Impressions: Service Date/Time: Wednesday, May 31, 2017 14:40 - CONCLUSION: 1. Interval apparent hepatomegaly with diffusely increased hepatic echogenicity. Given the acuity of findings, findings may reflect acute hepatitis or congestive hepatopathy. 2. Persistently contracted gallbladder which accentuates the gallbladder wall with persistent gallbladder wall thickening and trace pericholecystic fluid. These findings are commonly seen in the setting of liver disease although differential considerations include acalculous cholecystitis. HIDA scan may be performed for better evaluation as clinically appropriate. 3. Andrew Kraft MD Lung Scan-V Nuclear Medicine 05/23/17 0000 Signed Impressions: Service Date/Time: Tuesday, May 23, 2017 10:22 - CONCLUSION: Low probability of pulmonary embolism. Buddy Harrison MD FACR Lower Extremity Ultrasound 05/23/17 0000 Signed Impressions: Service Date/Time: Tuesday, May 23, 2017 08:02 - CONCLUSION: Negative for deep venous thrombosis. Buddy Harrison MD FACR Head CT 05/23/17 0000 Signed Impressions: Service Date/Time: Tuesday, May 23, 2017 03:56 - CONCLUSION: 1. Examination quality is degraded by motion artifact. 2. No definite acute finding is identified. There is a 3 mm punctate area of high density in the left frontal periventricular white matter. This could represent small focus of acute blood products. Suggest attention to this on followup imaging. Wiliam Buck MD Brain MRI 05/23/17 0000 Signed Impressions: Service Date/Time: Tuesday, May 23, 2017 15:59 - CONCLUSION: 1. 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 2. No hemorrhage observe. 3. Pansinus disease. Rudy Cervantes Jr., MD Aorta CTA 05/23/17 0000 Signed Impressions: Service Date/Time: Tuesday, May 23, 2017 03:58 - CONCLUSION: 1. 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 The dissection extends to the abdominal aorta and terminates in the common iliac arteries bilaterally. The abdominal vessels arise from both the true and false lumens and demonstrate good opacification. Suggest correlating with the patient's prior imaging study which documents the dissection. 2. 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 3. There is stranding of the periaortic fat adjacent to the arch aneurysm. 4. There are small bilateral pleural effusions, left larger than right, with bilateral volume loss and/or airspace consolidation bilaterally. Wiliam Buck MD Abdomen Ultrasound 05/23/17 0000 Signed Impressions: Service Date/Time: Tuesday, May 23, 2017 17:22 - CONCLUSION: 1. Gall bladder wall thickening and possible pericholecystic fluid without evidence of gallstones. May consider perform hepatic biliary tract scan to evaluate for acalculous cholecystitis. 2. No focal abnormality seen within the liver. Rudy Pollock MD Objective Remarks GENERAL: This is a 36-year-old well-developed well-nourished AA male resting in bed, sedated, on mechanical ventilation via tracheostomy SKIN: Warm and dry, adequately perfused. HEAD: Normocephalic. EYES: Pupils 3 mm and reactive. No scleral icterus. No injection or drainage. NECK: Supple, tracheostomy in place. No JVD or lymphadenopathy. Left IJ CVL is clean dry and intact CARDIOVASCULAR: Distant. RRR. S1, S2 no S4. Cannot appreciate murmurs, clicks , gallops or rubs RESPIRATORY: On mechanical ventilation, Coarse rhonchorous crackles noted throughout all lung [place] anterior-posterior bilaterally. No wheezing GASTROINTESTINAL: Abdomen soft, non-tender, nondistended. G-tube in place. Hypoactive bowel sounds are appreciated MUSCULOSKELETAL: No cyanosis. Edema 2+ bilateral upper and lower extremities NEURO: Currently sedated on fentanyl drip at 50 mcg/hr. occasionally opens eyes however not following commands.. Positive cough. 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 On Fentanyl, but placed on hold 06/21. Off Precedex currently. Will use Precedex if needed. Daily sedation vacation Acetaminophen 650 mg by tube every 6 hours as needed fever discontinued due to elevated transaminases Evaluated by neurology/Dr. Espinosa MRI brain 05/23 revealed bilateral frontal embolic CVA CT brain: There is a 3 mm punctate area of high density in the left frontal periventricular white matter. This could represent small focus of acute blood products. EEG : Mild diffuse encephalopathy, no seizure activity Continue aspirin 162 mg p.o. daily. Okayed with neurology. CV: Hypertensive emergency Acute type B aortic dissection Elevated troponin PEA cardiac arrest 05/23/17, secondary to obstructive sleep apnea/obesity hypoventilation syndrome with Bipap nonadherence. CTA stable. VQ scan negative . Hyperlipidemia Monitor HR and BP keep MAP>65mmHg Labetalol drip as needed Currently on carvedilol 25 mg twice daily Diltiazem 90 mg every 6 hours Clonidine 0.3 mg every 8 hours Repeat echo 05/23: EF 60-65%, no RWMA Evaluated by cardiology, Dr. Bhakta on 05/24 due to troponin elevation. He attributed elevated troponin to PEA arrest, hypoxia, renal insufficiency. No further ischemic workup planned at this time. 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 The dissection extends to the abdominal aorta and terminates in the common iliac arteries bilaterally. The abdominal vessels arise from both the true and false lumens and demonstrate good opacification. Vascular surgery is following- Dr. Guzman Pulm: Obstructive sleep apnea Obesity hypoventilation syndrome Acute hypercapnic respiratory failure intubated 05/30 Ventilator dependent respiratory failure PRVC RR 16, TV 500, IT:1.0, PEEP:8, FIO2: 40%, Ventilator bundle Bronchodilators, DuoNeb Q4, Mucomyst nebs Stopped Solumedrol 40mg IV daily on 06/20 Check ABG V/Q scan: low prob PE s/p bronch showed mucous plugs/ thick secretions b/l, normal mucosa, no evidence of EBL, BAL performed RUL. Status post bronchoscopy 05/30 revealed no mucus plugging. Normal bronchial mucosa without lesions. No signs of bleeding. LEN negative Status post tracheostomy 06/17 Renal/: Nonoliguric acute kidney injury Rhabdo Electrolyte derangement Severe anasarca Likely secondary to ischemic ATN following cardiac arrest. Strict intake output, monitor and replete electrolytes, follow BUN/creatinine Renal is following- Dr. Flannery abdomen: No hydronephrosis. On free water 250ml Q8, monitor sodium level. Lasix drip to mobilize fluid being initiated on 06/20 per nephrology. GI: Elevated transaminases Hypoalbuminemia Hyperammonia Continue Nepro @ 55ml/hr-no residuals Famotidine 10 mg BID for GI prophylaxis Docusate/senna 1 tablet twice daily, polyethylene glycol 17 g twice daily and lactulose 30 cc twice daily for bowel regimen. Monitor LFT's (trending down),Hep profile is negative Abdominal ultrasound 05/31 -market hepatic congestion. Contracted gallbladder with pericholecystic fluid. Possible acalculous cholecystitis recommend HIDA scan if clinically able. US abdomen: Gall bladder wall thickening and possible pericholecystic fluid without evidence of gallstones. Recommend HIDA scan if clinically indicated Lactulose 30 cc 4 times daily. GI following. Status post G-tube by IR. 06/17 Repeat ammonia level in a.m. Heme: Persistent Leukocytosis-resolved Microcytic anemia Monitor CBC, transfuse to keep hemoglobin above 7 g percent 06/21 patient transfused 2 units PRBC for Hgb 6.1-repeat level posttransfusion VQ scan negative 05/23 BLE u/s negative for DVT 05/23 ID: MSSA pneumonia Abx per ID ( On Cefepime) Monitor for signs of infections ( Fever, WBC) ID is following- , follow up on sputum and urine cxs 06/20 corticosteroids discontinued Pertinent: C-diff PCR negative on 06/04 and 06/09 06/08 -sputum -normal resp lizzie 05/31/13 -blood cultures 2 -pending 05/30 -bronchoscopy -no growth 05/30 -sputum -rare WBC/budding yeast 05/30 -blood cultures 2 -pending 05/25 -blood cultures 2 -no growth to date 05/25 -urine culture -no growth to date 05/23 -sputum -MSSA 05/23 -blood cultures 2 -no growth to date Endo: SSI ( medium scale) NovUlin R medium regimen every 6 hours sliding scale. Levemir 7u Q12 TSH 2.3 PROPH: SCDs, start heparin 5000 units subcutaneously every 8 hourly on 06/19 ACCESS Left IJ CVL placed 05/31 Discussed with DESIGN ANALYST and palliative care freight team associate Ms. Jenni Weathers Case management , discharge planning for LTAC. Level 3 follow-up Physician Yanely Paul MD Jun 21, 2017 13:29
[2017-06-21] MEDS: FUROSEMIDE INJ 100 MG in SODIUM CHLORIDE 0.9% INJ 90 ML IV SCH (13:43)
--- NOTE | 2017-06-21 17:54 | HHI.PR ---
Addendum to Inpatient Note Additional Information Seen around 1730 fuull note to follow Pts ggoint to CT BP low dw RN Nalini Cain MD Jun 21, 2017 17:54
[2017-06-21] MEDS ORDERED: ALBUMIN 25% INJ 100 ML IV SCH (18:00)
--- NOTE | 2017-06-21 18:28 | RADRPT ---
EXAM DATE/TIME: 06/21/2017 18:04 [facility] COMPARISON: No previous studies available for comparison. INDICATIONS : Anemia; evaluate bleeding from aortic dissection. ORAL CONTRAST: No oral contrast ingested. RADIATION DOSE: 29.22 CTDIvol (mGy) ; Patient body habitus MEDICAL HISTORY : Aneurysm, abdominal. SURGICAL HISTORY : None. ENCOUNTER: Initial ACUITY: 1 day PAIN SCALE: Non-responsive LOCATION: Bilateral abdomen TECHNIQUE: Volumetric scanning of the abdomen and pelvis was performed. Using automated exposure control and ad justment of the mA and/or kV according to patient size, radiation dose was kept as low as reasonably achievable to obtain optimal diagnostic quality images. DICOM format image data is available electro nically for review and comparison. FINDINGS: There is patchy airspace disease at the lung bases. Small left effusion. There is mild ascites in the abdomen and pelvis. Severe anasarca. There is no retroperitoneal hemorrh age to suggest leakage from the lower thoracic or abdominal aorta. There is a gastrostomy tube presen t. The gastrostomy Cannot be confirmed to be within the stomach on the current exam. There is free in traperitoneal air probably related to gastrostomy. No acute bony abnormalities. There is a large hydrocele and scrotal edema. Ledesma catheter in decompre ssed bladder. CONCLUSION: 1. No retroperitoneal fluid to suggest aortic rupture. 2. Severe anasarca with mild ascites. 3. Free intraperitoneal air with gastrostomy. On CT gastrostomy cannot be confirmed be within the sto mach. 4. Severe scrotal edema and hydrocele. 5. Basilar lung consolidation with small left effusion. Tc Varghese MD on June 21, 2017 at 18:21 Board Certified Radiologist. This report was verified electronically.
[2017-06-21] MEDS ORDERED: TERBUTALINE INJ 1 MG/ML AMP SQ PRN (19:45)
[2017-06-21] MEDS ORDERED: SODIUM CHLOR 0.9% 1000 ML INJ 1,000 ML IV ONE ×2 (19:45)
[2017-06-21] MEDS ORDERED: NOREPINEPHRINE-DEXTROSE DRIP 250 ML IV PRN (19:45)
[2017-06-21] MEDS ORDERED: CALCIUM CHLORIDE 10% SOLN 1 GRAM/10 ML SYR IV ONE (22:22)
[2017-06-21] MEDS ORDERED: NALOXONE HCL 4 MG/10 ML MDV IV ONE (22:22)
[2017-06-21] MEDS ORDERED: SODIUM BICARBONATE 8.4% INJ 50 MEQ/50 ML SYR IV ONE (22:22)
[2017-06-21] MEDS ORDERED: EPINEPHrine HCL (1:10,000) 1 MG/10 ML SYRINGE IV ONE (22:22)
[2017-06-21] MEDS ORDERED: Vancomycin Consult Pharmacy 1 EA OTHER SCH (23:45)
--- NOTE | 2017-06-21 23:49 | HHI.IDPN ---
Subjective Subjective Remarks pt was seen earlier today He cont to deteriorate CT neck and chest results were noted Hb dropped Creatinine went up Antibiotics cefepime Allergies: Coded Allergies: No Known Allergies (Unverified , 05/19/17) Objective . Vital Signs Date Time Temp Pulse Resp B/P (MAP) Pulse Ox O2 Delivery O2 Flow Rate FiO2 06/21/17 22:23 0 06/21/17 22:10 68 63/44 (50) 100 06/21/17 22:10 68 06/21/17 22:10 68 06/21/17 22:00 68 75/44 (54) 100 06/21/17 22:00 68 06/21/17 21:58 70 79/44 (56) 100 06/21/17 21:58 70 06/21/17 21:54 73 06/21/17 21:54 73 82/49 (60) 100 06/21/17 21:51 74 06/21/17 21:51 74 87/56 (66) 100 06/21/17 21:48 73 89/52 (64) 100 06/21/17 21:48 73 06/21/17 21:45 62 18 21:45 62 100/62 (75) 06/21/17 21:40 44 56/35 (42) 06/21/17 21:40 44 06/21/17 21:40 50 15.00 06/21/17 21:30 47 /18 21:30 47 58/29 (39) 97 18 21:28 59 70/38 18 21:21 61 70/38 (49) 98 18 21:21 61 18 21:10 63 65/46 (52) 99 18 21:10 63 18 21:00 65 18 21:00 65 70/49 (56) 99 18 20:50 66 /18 20:50 66 78/51 (60) 99 18 20:44 96.0 67 16 70/48 98 /18 20:40 67 70/48 (55) 99 06/21/17 20:40 67 /18 20:30 67 71/49 (56) 100 18 20:30 67 06/21/17 20:25 96.3 67 24 70/47 99 18 20:20 68 70/47 (55) 100 18 20:20 68 06/21/17 20:10 69 06/21/17 20:10 69 73/44 (54) 100 06/21/17 20:03 100 35 06/21/17 20:00 96.0 69 73/38 (50) 100 06/21/17 20:00 35 06/21/17 20:00 69 06/21/17 18:00 69 18 17:50 100 35 06/21/17 16:13 100 35 06/21/17 16:00 97.4 75 92/55 (67) 100 06/21/17 16:00 75 06/21/17 16:00 35 06/21/17 15:35 98.7 75 20 92/52 100 06/21/17 15:05 75 22 89/57 100 06/21/17 14:50 98.4 75 22 92/52 100 06/21/17 14:35 75 20 93/52 100 06/21/17 14:20 97.4 75 21 94/51 100 06/21/17 14:04 98.1 74 22 90/52 100 06/21/17 14:00 74 06/21/17 13:45 98.9 74 24 93/53 100 06/21/17 13:30 98.9 77 25 89/52 100 06/21/17 13:17 100 35 06/21/17 13:15 75 21 91/50 100 06/21/17 13:00 98.7 73 18 93/51 100 18 12:45 73 18 93/55 100 06/21/17 12:30 74 19 92/50 100 06/21/17 12:15 98.7 73 18 94/52 100 06/21/17 12:00 75 18 95/53 100 06/21/17 12:00 97.8 75 95/53 (67) 100 18 12:00 35 06/21/17 12:00 75 06/21/17 11:45 73 19 95/52 100 06/21/17 11:30 98.9 76 18 96/51 100 06/21/17 11:15 73 18 88/49 100 06/21/17 11:00 98.9 73 85/53 100 06/21/17 10:45 74 18 91/53 100 06/21/17 10:32 100 35 06/21/17 10:30 98.1 73 91/50 100 06/21/17 10:16 98.1 73 19 92/52 100 06/21/17 10:00 74 06/21/17 08:20 100 35 06/21/17 08:00 98.5 74 84/52 (63) 100 06/21/17 08:00 74 06/21/17 08:00 35 06/21/17 06:00 79 94/45 (61) 100 06/21/17 06:00 79 06/21/17 05:00 74 06/21/17 05:00 74 83/47 (59) 100 06/21/17 04:00 74 06/21/17 04:00 35 06/21/17 04:00 98.6 74 76/45 (55) 100 06/21/17 03:37 100 35 06/21/17 03:00 71 06/21/17 03:00 71 86/52 (63) 100 06/21/17 02:00 71 84/47 (59) 100 06/21/17 02:00 71 06/21/17 01:00 76 06/21/17 00:27 100 35 06/21/17 00:00 35 06/21/17 00:00 98.7 73 20 109/56 (73) 100 06/21/17 00:00 79 06/21/17 06/21/17 06/22/17 15:00 23:00 07:00 Intake Total 420 ml 15 ml Balance 420 ml 15 ml Packed Cells 400 ml Blood Product IV Normal Saline Flush 20 ml 15 ml . Laboratory Tests Test 06/21/17 05:45 06/21/17 06:50 White Blood Count 10.8 TH/MM3 Red Blood Count 2.26 MIL/MM3 Hemoglobin 6.1 GM/DL 6.1 GM/DL Hematocrit 18.8 % 18.9 % Mean Corpuscular Volume 83.3 FL Mean Corpuscular Hemoglobin 26.9 PG Mean Corpuscular Hemoglobin Concent 32.3 % Red Cell Distribution Width 18.7 % Platelet Count 169 TH/MM3 Mean Platelet Volume 9.5 FL Neutrophils (%) (Auto) 83.5 % Lymphocytes (%) (Auto) 9.9 % Monocytes (%) (Auto) 4.6 % Eosinophils (%) (Auto) 1.5 % Basophils (%) (Auto) 0.5 % Neutrophils # (Auto) 9.0 TH/MM3 Lymphocytes # (Auto) 1.1 TH/MM3 Monocytes # (Auto) 0.5 TH/MM3 Eosinophils # (Auto) 0.2 TH/MM3 Basophils # (Auto) 0.1 TH/MM3 CBC Comment AUTO DIFF Differential Total Cells Counted 100 Neutrophils % (Manual) 65 % Band Neutrophils % 24 % Lymphocytes % 8 % Monocytes % 2 % Eosinophils % 1 % Neutrophils # (Manual) 9.6 TH/MM3 Nucleated Red Blood Cells 26 /100 WBC Differential Comment FINAL DIFF MANUAL Platelet Estimate NORMAL Platelet Morphology Comment NORMAL Basophilic Stippling MOD Laboratory Tests Test 06/20/17 16:25 06/21/17 05:45 Blood Urea Nitrogen 120 MG/DL 127 MG/DL Creatinine 2.93 MG/DL 3.18 MG/DL Random Glucose 128 MG/DL 76 MG/DL Calcium Level 7.5 MG/DL 8.0 MG/DL Sodium Level 146 MEQ/L 147 MEQ/L Potassium Level 4.8 MEQ/L 4.8 MEQ/L Chloride Level 114 MEQ/L 114 MEQ/L Carbon Dioxide Level 21.7 MEQ/L 20.1 MEQ/L Anion Gap 10 MEQ/L 13 MEQ/L Estimat Glomerular Filtration Rate 30 ML/MIN 27 ML/MIN Total Protein 5.4 GM/DL Albumin 1.8 GM/DL Phosphorus Level 8.2 MG/DL Magnesium Level 2.0 MG/DL Alkaline Phosphatase 59 U/L Aspartate Amino Transf (AST/SGOT) 123 U/L Alanine Aminotransferase (ALT/SGPT) 119 U/L Total Bilirubin 1.1 MG/DL Imaging Last Impressions Abdomen/Pelvis CT 06/21/17 0000 Signed Impressions: Service Date/Time: Wednesday, June 21, 2017 18:04 - CONCLUSION: 1. No retroperitoneal fluid to suggest aortic rupture. 2. Severe anasarca with mild ascites. 3. Free intraperitoneal air with gastrostomy. On CT gastrostomy cannot be confirmed be within the stomach. 4. Severe scrotal edema and hydrocele. 5. Basilar lung consolidation with small left effusion. Tc Varghese MD Neck CT 06/20/17 0000 Signed Impressions: Service Date/Time: Tuesday, June 20, 2017 20:27 - CONCLUSION: 1. Contrast not administered so unable to evaluate for thrombosis. 2. Severe anasarca and probable mucosal edema in the upper airway. No air within the airway above the tracheostomy. 3. Upper lobe air space disease in the lungs, worse on the right. 4. Pansinus disease as above. Tc Varghese MD Chest X-Ray 06/20/17 0000 Signed Impressions: Service Date/Time: Tuesday, June 20, 2017 14:12 - CONCLUSION: Persistent left hilar and infrahilar consolidative infiltrate. New acinar densities in the upper lungs without evidence of consolidation. Rudy Pollock MD Chest CT 06/20/17 0000 Signed Impressions: Service Date/Time: Tuesday, June 20, 2017 20:34 - CONCLUSION: 1. Contrast not administered side able to evaluate for thrombosis or embolism. 2. Severe anasarca. 3. Bilateral patchy airspace disease in the lungs most characteristic of bronchopneumonia. Small left effusion. 4. Free intraperitoneal air presumably related to recent gastrostomy placement. 5. Left central line tip in superior vena cava. Tc Varghese MD Gastrostomy Tube Placement 06/17/17 0000 Signed Impressions: Service Date/Time: Saturday, June 17, 2017 13:42 - CONCLUSION: Uncomplicated gastrostomy tube placement as above. Rodrigue Miller MD Abdomen X-Ray 06/02/17 0000 Signed Impressions: Service Date/Time: May 10:18 - CONCLUSION: NG tip in stomach. Left basilar airspace disease. Elevated right hemidiaphragm. Bowel gas pattern demonstrates mild ileus Tc Varghese MD Liver Ultrasound 05/31/17 1434 Signed Impressions: Service Date/Time: Wednesday, May 31, 2017 14:40 - CONCLUSION: 1. Interval apparent hepatomegaly with diffusely increased hepatic echogenicity. Given the acuity of findings, findings may reflect acute hepatitis or congestive hepatopathy. 2. Persistently contracted gallbladder which accentuates the gallbladder wall with persistent gallbladder wall thickening and trace pericholecystic fluid. These findings are commonly seen in the setting of liver disease although differential considerations include acalculous cholecystitis. HIDA scan may be performed for better evaluation as clinically appropriate. 3. Andrew Kraft MD Lung Scan-[facility] Nuclear Medicine 05/23/17 Signed Impressions: Service Date/Time: Tuesday, May 23, 2017 10:22 - CONCLUSION: Low probability of pulmonary embolism. Buddy Harrison MD FACR Lower Extremity Ultrasound 05/23/17 Signed Impressions: Service Date/Time: Tuesday, May 23, 2017 08:02 - CONCLUSION: Negative for deep venous thrombosis. Buddy Harrison MD FACR Head CT 05/23/17 Signed Impressions: Service Date/Time: Tuesday, May 23, 2017 03:56 - CONCLUSION: 1. Examination quality is degraded by motion artifact. 2. No definite acute finding is identified. There is a 3 mm punctate area of high density in the left frontal periventricular white matter. This could represent small focus of acute blood products. Suggest attention to this on followup imaging. Wiliam Buck MD Brain MRI 05/23/17 Signed Impressions: Service Date/Time: Tuesday, May 23, 2017 15:59 - CONCLUSION: 1. 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 2. No hemorrhage observe. 3. Pansinus disease. Rudy Cervantes Jr., MD Aorta CTA 05/23/17 Signed Impressions: Service Date/Time: Tuesday, May 23, 2017 03:58 - CONCLUSION: 1. 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 The dissection extends to the abdominal aorta and terminates in the common iliac arteries bilaterally. The abdominal vessels arise from both the true and false lumens and demonstrate good opacification. Suggest correlating with the patient's prior imaging study which documents the dissection. 2. 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 3. There is stranding of the periaortic fat adjacent to the arch aneurysm. 4. There are small bilateral pleural effusions, left larger than right, with bilateral volume loss and/or airspace consolidation bilaterally. Wiliam Buck MD Abdomen Ultrasound 05/23/17 Signed Impressions: Service Date/Time: Tuesday, May 23, 2017 17:22 - CONCLUSION: 1. Gall bladder wall thickening and possible pericholecystic fluid without evidence of gallstones. May consider perform hepatic biliary tract scan to evaluate for acalculous cholecystitis. 2. No focal abnormality seen within the liver. Rudy Pollock MD Physical Exam CONSTITUTIONAL/GENERAL: This is an adequately nourished patient, sedated int'd on vent TUBES/LINES/DRAINS: SKIN: No jaundice, rashes, or lesions. Skin temperature appropriate. Not diaphoretic. Massive anasarca NECK: trach in place EYES: Pupils equal and round and reactive. Extraocular motions intact. No scleral icterus. No injection or drainage. Fundi not examined. CARDIOVASCULAR: Regular rate and rhythm without murmurs, gallops, or rubs. No JVD. Peripheral pulses symmetric. RESPIRATORY/CHEST: Symmetric, unlabored respirations. few scattered rhonchi to auscultation. Breath sounds equal bilaterally. GASTROINTESTINAL: Abdomen soft, distended. No hepato-splenomegaly, or palpable masses. No guarding. Bowel sounds present. No BS; RN report large BM earlier GENITOURINARY: Without palpable bladder distension. Ledesma catheter in place with very light yellow urine MUSCULOSKELETAL: Extremities without clubbing, cyanosis, + prominent edema, 4+, tight much more promenent in upper torso, neck , shoulders No mottling or clubbing. NEUROLOGICAL: unresponsive PSYCHIATRIC: unable to assess Assessment & Plan Remarks Type B AAA dissection PNA, clx negative, but BAL cw PNA, 24 K WBC growing budding yeast from BAL - doubt clin significance CXR looks worse growing PSAE in the sputum - crawford senstitive except I gent Acute VDRF - failure to wean Non oliguric ARF Fever -resolved Leukocytosis, bandemia - worsening ? sterroids contributing Abx associated ileus , diarrhea - c.diff negative x 3/3 Funguria Clically deteriorated: hypotension, bandemia, Hb drop ? bleeding will change cefepime to zosyn, vanco, micafungin will repaet blood, urine and sputum clx Discussed Condition With RN Nalini Cain MD Jun 21, 2017 23:49
[2017-06-22] MEDS ORDERED: PIPERACIL-TAZO 3.375 GM PREMIX 50 ML IV SCH (00:15)
--- NOTE | 2017-06-22 07:11 | HHI.DS ---
Summary Note Date of : Jun 21, 2017 Time Of : 2222 Admission Date May 19, 2017 at 19:04 Admitting Diagnosis Diagnosis at Time of : CBC/BMP: 06/21/17 0650 06/21/17 0545 Significant Findings Laboratory Tests Test 06/20/17 16:25 06/21/17 05:45 06/21/17 06:50 Blood Urea Nitrogen 120 MG/DL (7-18) 127 MG/DL (7-18) Creatinine 2.93 MG/DL (0.60-1.30) 3.18 MG/DL (0.60-1.30) Random Glucose 128 MG/DL (74-106) Calcium Level 7.5 MG/DL (8.5-10.1) 8.0 MG/DL (8.5-10.1) Sodium Level 146 MEQ/L (136-145) 147 MEQ/L (136-145) Chloride Level 114 MEQ/L (98-107) 114 MEQ/L (98-107) Estimat Glomerular Filtration Rate 30 ML/MIN (>89) 27 ML/MIN (>89) Red Blood Count 2.26 MIL/MM3 (4.50-5.90) Hemoglobin 6.1 GM/DL (13.0-17.0) 6.1 GM/DL (13.0-17.0) Hematocrit 18.8 % (39.0-51.0) 18.9 % (39.0-51.0) Mean Corpuscular Hemoglobin 26.9 PG (27.0-34.0) Red Cell Distribution Width 18.7 % (11.6-17.2) Neutrophils (%) (Auto) 83.5 % (16.0-70.0) Neutrophils # (Auto) 9.0 TH/MM3 (1.8-7.7) Band Neutrophils % 24 % (0-6) Lymphocytes % 8 % (9-44) Neutrophils # (Manual) 9.6 TH/MM3 (1.8-7.7) Nucleated Red Blood Cells 26 /100 WBC (0-0) Basophilic Stippling MOD (NORMAL) Total Protein 5.4 GM/DL (6.4-8.2) Albumin 1.8 GM/DL (3.4-5.0) Phosphorus Level 8.2 MG/DL (2.5-4.9) Aspartate Amino Transf (AST/SGOT) 123 U/L (15-37) Alanine Aminotransferase (ALT/SGPT) 119 U/L (12-78) Total Bilirubin 1.1 MG/DL (0.2-1.0) Carbon Dioxide Level 20.1 MEQ/L (21.0-32.0) Imaging Last Impressions Chest X-Ray 06/13/17 0000 Signed Impressions: Service Date/Time: Tuesday, June 13, 2017 09:52 - CONCLUSION: 1. Midinspiratory exam. The endotracheal tube tip is at the level of the julee. 2. Apparent increase in hazy opacity in both lungs which may represent pulmonary edema or be artifactual secondary to the Midinspiratory study. Marvin Rivas MD Abdomen X-Ray 06/02/17 0000 Signed Impressions: Service Date/Time: May 10:18 - CONCLUSION: NG tip in stomach. Left basilar airspace disease. Elevated right hemidiaphragm. Bowel gas pattern demonstrates mild ileus Tc Varghese MD Liver Ultrasound 05/31/17 1434 Signed Impressions: Service Date/Time: Wednesday, May 31, 2017 14:40 - CONCLUSION: 1. Interval apparent hepatomegaly with diffusely increased hepatic echogenicity. Given the acuity of findings, findings may reflect acute hepatitis or congestive hepatopathy. 2. Persistently contracted gallbladder which accentuates the gallbladder wall with persistent gallbladder wall thickening and trace pericholecystic fluid. These findings are commonly seen in the setting of liver disease although differential considerations include acalculous cholecystitis. HIDA scan may be performed for better evaluation as clinically appropriate. 3. Andrew Kraft MD Lung Scan-V Nuclear Medicine 05/23/17 0000 Signed Impressions: Service Date/Time: Tuesday, May 23, 2017 10:22 - CONCLUSION: Low probability of pulmonary embolism. Buddy Harrison MD FACR Lower Extremity Ultrasound 05/23/17 0000 Signed Impressions: Service Date/Time: Tuesday, May 23, 2017 08:02 - CONCLUSION: Negative for deep venous thrombosis. Buddy Harrison MD FACR Head CT 05/23/17 0000 Signed Impressions: Service Date/Time: Tuesday, May 23, 2017 03:56 - CONCLUSION: 1. Examination quality is degraded by motion artifact. 2. No definite acute finding is identified. There is a 3 mm punctate area of high density in the left frontal periventricular white matter. This could represent small focus of acute blood products. Suggest attention to this on followup imaging. Wiliam Buck MD Brain MRI 05/23/17 0000 Signed Impressions: Service Date/Time: Tuesday, May 23, 2017 15:59 - CONCLUSION: 1. 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 2. No hemorrhage observe. 3. Pansinus disease. Rudy Cervantes Jr., MD Aorta CTA 05/23/17 0000 Signed Impressions: Service Date/Time: Tuesday, May 23, 2017 03:58 - CONCLUSION: 1. 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 The dissection extends to the abdominal aorta and terminates in the common iliac arteries bilaterally. The abdominal vessels arise from both the true and false lumens and demonstrate good opacification. Suggest correlating with the patient's prior imaging study which documents the dissection. 2. 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 3. There is stranding of the periaortic fat adjacent to the arch aneurysm. 4. There are small bilateral pleural effusions, left larger than right, with bilateral volume loss and/or airspace consolidation bilaterally. Wiliam Buck MD Abdomen Ultrasound 05/23/17 0000 Signed Impressions: Service Date/Time: Tuesday, May 23, 2017 17:22 - CONCLUSION: 1. Gall bladder wall thickening and possible pericholecystic fluid without evidence of gallstones. May consider perform hepatic biliary tract scan to evaluate for acalculous cholecystitis. 2. No focal abnormality seen within the liver. Rudy Pollock MD Hospital Course Remarks/Hospital Course 05/19: Is a 36-year-old male with a history of hypertension who is on vacation from the [place] area who did not take his antihypertensives today because he is on vacation, and was having sexual intercourse when he had sudden onset of severe substernal radiating to the back chest pain earlier today. 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 He was emergently transferred to [facility] for further management. I evaluated the patient on arrival to the ICU by EVAC. Patient denies abdominal pain. Still endorses chest pain although this is improving. Patient denies any other symptoms. CT chest abdomen pelvis was reviewed and reviewed with myself and Dr. Guzman and does demonstrate a type B dissection. 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 Initial laboratory evidence demonstrates a lactate of 1.3, creatinine 1.2, normal LFTs. 05/20: On home C Pap. Urine output 30 cc/h currently. Remains on esmolol and labetalol drips. Remains drowsy though arousable. +4.4 L 05/21: Resting comfortably on nasal cannula. Awake and alert currently. Denies any shortness of breath or chest pain currently. 05/22: AAO x3, resting comfortably. 05/23 Patient went into PEA arrest early this morning now sedated with Diprivan and intubated. Off Esmolol drip. 05/24 Patient is sedated with Diprivan and intubated. On Labetolol drip. MRI brain yesterday showed multiple small infracts, no hemorrhage. 05/25 Patient remains intubated and sedated. T: 100.5 last night. Renal function is worsening with Cr: 3.6 from 3.4 and UOP: 2650ml in 24 hrs. 05/26 No events overnight. Sedated and intubated. Afebrile. Cr: 3.62 , UOP: 1950ml in 24 hrs 05/27 Patient was extubated yesterday placed on BIPAP overnight. Cr: 3.42 today , UOP: 1800 ml in 24 hrs 05/28 Extubated yesterday and per report was compliant with Bipap overnight Remains on esmolol drip 200 mcg/kg/min and SBP in 140s. ZULY, probable ATN non- oliguric however I>>0 with significant intake from MIVF as well as 180 mL/hr from esmolol drip. IVF d/c per nephrology and transitioning off esmolol to minimize fluid. Lasix now per my discussion with Dr. Thornton. He is tachypneic, obtained ABG with hypercapnea on simple mask. Placing On Bipap. at bedside requesting eventual transfer to [place], though she realized he is not stable for that yet. 05/29: Remains on BiPAP since 299 with increasing respiratory rates. Will attempt a more aggressive diuresis. We started on esmolol drip due to persistent tachycardia and unable to reach target blood pressure and heart rate requirements. At high risk for reintubation. 05/30: Remained hypotensive overnight. This a.m. desaturated, tachypneic requiring high percent on BiPAP hence intubated by rn ent. Will require bronchoscopy this afternoon. Continue with aggressive diuresis. Broad antibiotic coverage. Start tube feeding. The systolic blood pressure better controlled while intubated on propofol and fentanyl drips. 05/31: T-max 102.8. Currently 99.6. FiO2 down to 80%. The same noted elevated transaminases AST of 2674. ALT of 1590. Creatinine is increased to 3.07 to 4.36. +2 L past 24 hours. One bowel movement. Noted prior gallbladder wall thickening on previous ultrasound. We will repeat today Subjective 06/01: T-max 102.5. Currently 98.9. Desaturate overnight resolved currently FiO2 of 80%. 4500 cc urine output. Creatinine continues to rise currently 4.9. CPK currently 6165. We will discontinue propofol with hepatomegaly, rhabdomyolysis possibly indicative propofol infusion syndrome. 06/02 Patient remains intubated and sedated. On Fentanyl, Versed and Nimbex. T: 100.0 at midnight. On PC/AC with PEEP:15, FIO2 50% Renal function continue to decline with Cr: 5.40 from 4.91 and UOP: 2895 ml in 24 hrs 06/03 Patient remains intubated and sedated with Versed, Fentanyl drips. Remains on Nimbex and Flolan. Cr: 5.6 from 5.4 with UOP: 3790 ml in 24 hrs. 06/04:Afebrile. Overnight the patient had an episode of hypotension during the and all sedation was briefly discontinued, then resumed for ventilator synchrony. Clonidine dosage decreased. Patient continues on pressure control mode, and Flolan for adequate oxygenation. Creatinine noted to be 5.7 weight urine output 3220cc/24 hrs. 06/05: Afebrile. This x-ray revealed improving area aeration of the right hemithorax. PEEP decreased this a.m. to 12, patient continues on FiO2 55% and Flolan, planned weaning. Electrolytes currently being replaced. Elevated liver enzymes continue to down trend. 06/06: Respiratory requirements decreasing, patient now on Flolan 10 ng/kg/min with FiO2 at 60%, maintaining O2 saturation 92%. Creatinine continues to down trend. Leukocytosis improving. 06/07: Flolan discontinued, FIO2 65%. Propofol added to maintain ventilator synchrony. Patient currently on 10 mg of Versed and 250 mics of fentanyl. Wound care was consulted for skin breakdown on buttocks secondary to multiple bowel movements, patient continues on Avani bed. 06/08: No acute events overnight. Flolan discontinued greater than 18 hours patient's O2 saturation 97% on FiO2 of 65. FiO2 requirements decreased the patient continues on a PEEP of 12. Free water flushes added to medication regimen secondary to hypernatremia, sodium level 156 today. 06/09 Patient remains sedated and intubated. Afebrile. 06/10 Patient is sedated with Versed, Diprivan and Fentanyl drips, intubated. Afebrile. renal function is improving with Cr: 3.52 from 3.94 06/11 No events overnight. Sedated with Diprivan and Fentanyl drips. Off Versed. renal function continue to improve with Cr:3.16 from 3.52. 06/12 Patient remains intubated placed on CPAP with PS 12, PEEP:5 and FIO2 40%, Cr down 2.74 from 3.16. Afebrile. 06/13 No events overnight. Sedated with Diprivan, Fentanyl and on Precedex. Placed on labetalol yesterday 9mg. Afebrile. 06/14 No events overnight. Remains sedated and intubated, labetalol drip 5mg. Cr : 2.80. FOr transfusions 1unit PRBC fot Hgb 6.7 this morning. 06/15: Sedated, orally intubated on mechanical ventilation. 06/16: Remains sedated, orally intubated on mechanical ventilation. PEEP +8 FiO2 40%. Consulted GI and general surgery for PEG and tracheostomy. 06/17: Remains sedated, orally intubated on mechanical ventilation. Awaiting tracheostomy and PEG tube today. 06/18: Underwent tracheostomy and G-tube placement yesterday. Had 15 second sinus pause last night. Remains sedated, orally intubated on mechanical ventilation. 06/19: Remains sedated, on mechanical ventilation via tracheostomy. Sedation being titrated off. 06/20: On fentanyl 50 mics per minute otherwise off all other sedation. Opens eyes occasionally not falling commands. Remains on mechanical ventilation via tracheostomy. 06/21: Sedation titrated off today. Spontaneous eye opening patient not responding to any commands. Not moving extremities. Patient noted to have a drop in hemoglobin 6.1, repeat level obtained for accuracy. Patient to be transfused 2 units packed red blood cells. CT of the abdomen and pelvis without contrast pending. Patient was placed on a Lasix infusion yesterday, nephro following creatinine 3.1 today. Corticosteroids were discontinued on 06/20 , WBC decreased. 06/21: During the evening the patient became hypotensive with 3rd u PRBC transfusing and an asystolic rhythm, ACLS protocol was initiated, at the 5 minutes into the code ,the family was at bedside and requested DNR status. The patient regained ROSC at 6 minutes, and subsequently rhythm reverted back to asystole. With family at bedside the patient at 2223. Yanely Strickland MD Jun 22, 2017 07:11
[2017-06-23] MEDS ORDERED: MICAFUNGIN INJ 150 MG in SODIUM CHLORIDE 0.9% INJ 100 ML IV SCH ×2
[2017-06-23] MEDS ORDERED: PIPERACIL-TAZO 2.25 GM PREMIX 50 ML IV SCH (01:00)
== END 2017-06-21 22:23 | disposition expired | DRG 4 ==
LOC: HCVI 19:04 → HIMN 06-08 13:30
PROVIDERS: ADMIT Internal Medicine Critical Care Medicine; ATTEND Internal Medicine Critical Care Medicine
PROC: 03HY32Z Insertion of Monitoring Device into Upper Artery, Percutaneous Approach (ICD-10-PCS; 2017-05-20)
PROC: 4A133B1 Monitoring of Arterial Pressure, Peripheral, Percutaneous Approach (ICD-10-PCS; 2017-05-20)
PROC: 4A133J1 Monitoring of Arterial Pulse, Peripheral, Percutaneous Approach (ICD-10-PCS; 2017-05-20)
PROC: 0T9B70Z Drainage of Bladder with Drainage Device, Via Natural or Artificial Opening (ICD-10-PCS; 2017-05-20)
PROC: 5A09357 Assistance with Respiratory Ventilation, Less than 24 Consecutive Hours, Continuous Positive Airway Pressure (ICD-10-PCS; 2017-05-20)
PROC: 5A1945Z Respiratory Ventilation, 24-96 Consecutive Hours (ICD-10-PCS; 2017-05-23)
PROC: 0BH17EZ Insertion of Endotracheal Airway into Trachea, Via Natural or Artificial Opening (ICD-10-PCS; 2017-05-23)
PROC: 5A12012 Performance of Cardiac Output, Single, Manual (ICD-10-PCS; 2017-05-23)
PROC: 03HY32Z Insertion of Monitoring Device into Upper Artery, Percutaneous Approach (ICD-10-PCS; 2017-05-23)
PROC: 4A133B1 Monitoring of Arterial Pressure, Peripheral, Percutaneous Approach (ICD-10-PCS; 2017-05-23)
PROC: 4A133J1 Monitoring of Arterial Pulse, Peripheral, Percutaneous Approach (ICD-10-PCS; 2017-05-23)
PROC: 5A1955Z Respiratory Ventilation, Greater than 96 Consecutive Hours (ICD-10-PCS; principal; 2017-05-30)
PROC: 0B9F8ZX Drainage of Right Lower Lung Lobe, Via Natural or Artificial Opening Endoscopic, Diagnostic (ICD-10-PCS; 2017-05-30)
PROC: 0D9670Z Drainage of Stomach with Drainage Device, Via Natural or Artificial Opening (ICD-10-PCS; 2017-05-30)
PROC: 0BH17EZ Insertion of Endotracheal Airway into Trachea, Via Natural or Artificial Opening (ICD-10-PCS; 2017-05-30)
PROC: 30233N1 Transfusion of Nonautologous Red Blood Cells into Peripheral Vein, Percutaneous Approach (ICD-10-PCS; 2017-05-31)
PROC: 0DH63UZ Insertion of Feeding Device into Stomach, Percutaneous Approach (ICD-10-PCS; 2017-06-17)
PROC: 0BJ08ZZ Inspection of Tracheobronchial Tree, Via Natural or Artificial Opening Endoscopic (ICD-10-PCS; 2017-06-17)
PROC: 0DJ08ZZ Inspection of Upper Intestinal Tract, Via Natural or Artificial Opening Endoscopic (ICD-10-PCS; 2017-06-17)
PROC: 0B113F4 Bypass Trachea to Cutaneous with Tracheostomy Device, Percutaneous Approach (ICD-10-PCS; 2017-06-17 10:26)
DX: I71.02 Dissection of abdominal aorta (principal); I63.40 Cerebral infarction due to embolism of unspecified cerebral artery; K72.00 Acute and subacute hepatic failure without coma; N17.0 Acute kidney failure with tubular necrosis; J15.211 Pneumonia due to Methicillin susceptible Staphylococcus aureus; G93.40 Encephalopathy, unspecified; J94.2 Hemothorax; I11.0 Hypertensive heart disease with heart failure; J96.01 Acute respiratory failure with hypoxia; J96.02 Acute respiratory failure with hypercapnia; T17.890A Other foreign object in other parts of respiratory tract causing asphyxiation, initial encounter; Z68.42 Body mass index [BMI] 45.0-49.9, adult; K56.7 Ileus, unspecified; E87.0 Hyperosmolality and hypernatremia; I16.1 Hypertensive emergency; E66.2 Morbid (severe) obesity with alveolar hypoventilation; Z99.11 Dependence on respirator [ventilator] status; M62.82 Rhabdomyolysis; L89.312 Pressure ulcer of right buttock, stage 2; I50.9 Heart failure, unspecified; L89.322 Pressure ulcer of left buttock, stage 2; I71.01 Dissection of thoracic aorta; I71.03 Dissection of thoracoabdominal aorta; I70.8 Atherosclerosis of other arteries; I46.9 Cardiac arrest, cause unspecified; E78.5 Hyperlipidemia, unspecified; E78.1 Pure hyperglyceridemia; E87.6 Hypokalemia; E88.09 Other disorders of plasma-protein metabolism, not elsewhere classified; Z91.19 Patient's noncompliance with other medical treatment and regimen; R00.1 Bradycardia, unspecified; R13.10 Dysphagia, unspecified; Z66 Do not resuscitate; Z82.49 Family history of ischemic heart disease and other diseases of the circulatory system; R16.0 Hepatomegaly, not elsewhere classified; I08.1 Rheumatic disorders of both mitral and tricuspid valves
CPT/HCPCS: 31500; 36430; 36556; 36600; 36620; 49440; 70450; 70490; 70553; 71045; 71250; 71275; 74018; 74174; 74176; 76700; 76705; 76937; 78582; 80048; 80053; 80074; 80076; 80202; 81001; 82103; 82105; 82140; 82248; 82272; 82390; 82550; 82552; 82570; 82607; 82728; 82805; 82948; 83520; 83540; 83550; 83605; 83690; 83735; 83880; 84100; 84132; 84155; 84300; 84425; 84439; 84443; 84478; 84484; 85007; 85014; 85018; 85025; 85027; 85384; 85610; 85730; 86038; 86255; 86403; 86850; 86900; 86901; 86920; 87015; 87040; 87070; 87077; 87086; 87102; 87106; 87116; 87147; 87186; 87205; 87206; 87252; 87254; 87493; 88112; 88305; 89051; 93005; 93306; 93308; 93922; 93970; 94002; 94003; 94150; 94640; 94664; 94667; 94668; 94799; 95819; A9540; A9567; A9579; C9248; J0171; J0360; J0610; J0690; J0692; J0696; J1100; J1325; J1644; J1940; J2185; J2212; J2250; J2270; J2310; J2370; J2405; J2543; J2765; J2920; J2930; J2997; J3010; J3370; J3480; J7030; J7040; J7042; J7050; J7070; J7120; J7608; J7613; P9016; P9047; Q9967